=== PATIENT | female | born 1980 | race Caucasian/White ===

== ENCOUNTER 2019-12-12 14:36 | Outpatient (REF) | payer OTHER, SELFPAY | END 2019-12-12 14:37 | disposition home or self-care (01) | LOC: HO.LAB 14:36 | PROVIDERS: PCP Internal Medicine; Visit Provider Internal Medicine | DX: Z20.828 Contact with and (suspected) exposure to other viral communicable diseases (principal) | CPT/HCPCS: 87635 ==

== ENCOUNTER 2020-01-21 16:44 | Outpatient (REF) | payer OTHER, SELFPAY ==
[2020-01-21 17:43] LABS: COVID-19 Test Negative (Negative); IDNOW Serial# 55D5AD1C
== END 2020-01-21 16:45 | disposition home or self-care (01) ==
LOC: HO.LAB 16:44
PROVIDERS: Visit Provider Internal Medicine
DX: Z20.828 Contact with and (suspected) exposure to other viral communicable diseases (principal)
CPT/HCPCS: 87635; C9803

== ENCOUNTER 2020-02-21 19:43 | Emergency (ER) | payer OTHER, SELFPAY ==
[2020-02-21 20:08] VITALS: PULSE 81; RESP 15; TEMP 35.9; O2SAT 100; BMI 34.9
--- NOTE | 2020-02-21 20:48 | CT_ITS ---
EXAMINATION: CT HEAD WITHOUT CONTRAST CLINICAL INFORMATION: Headache, left-sided numbness COMPARISON: None TECHNIQUE: Contiguous axial imaging was performed from the skull base to vertex without intravenous administration of contrast. This CT examination was performed using dose optimization techniques as appropriate, variously including the following: *Automated exposure control *Adjustment of mA and/or kV according to patient size (this includes techniques or standardized protocols for targeted exams where dose is matched to indication/reason for exam; i.e. extremities or head) *Use of iterative reconstruction technique DLP: 642 mGy-cm FINDINGS: There is no evidence of acute intracranial hemorrhage or territorial infarction. No abnormal mass effect or midline shift is seen. Andrews to white matter differentiation is well preserved. No extra-axial fluid collections are identified. The ventricles are normal in size. There is no abnormal attenuation within the brain parenchyma. The osseous structures and soft tissues are normal. The mastoid air cells and visualized portions of the paranasal sinuses are well aerated. CT/CT head/brain wo con IMPRESSION: No acute intracranial process seen.
--- NOTE | 2020-02-21 20:49 | XR_ITS ---
EXAMINATION: XR CHEST CLINICAL INFORMATION: Chest pain. COMPARISON: None TECHNIQUE: Frontal view of the chest was obtained. FINDINGS: No significant abnormality is noted involving the heart, lungs, mediastinum, bony thorax or soft tissues. XR/XR chest 1V IMPRESSION: Unremarkable chest examination.
--- NOTE | 2020-02-21 20:49 | ECG_ITS ---
Test Reason : FLU LIKE SYMPTOMS Blood Pressure : / mmHG Vent. Rate : 079 BPM Atrial Rate : 079 BPM P-R Int : 142 ms QRS Dur : 082 ms QT Int : 368 ms P-R-T Axes : 007 056 035 degrees QTc Int : 421 ms Normal sinus rhythm Normal ECG When compared with ECG of 03-APR-2019 07:42, No significant change was found Referred By: Bhumika Magallanes Electronically Signed By:Ronni Glover
--- NOTE | 2020-02-21 20:55 | ED.HA ---
HPI - Headache General Chief Complaint: Headache Stated Complaint: Migraine Time Seen by Provider: 02/21/20 20:36 Source: patient Mode of arrival: ambulatory Limitations: no limitations History of Present Illness MD elicited complaint: headache and other (HTN, body aches, chest pain, L sided facial parasthesias) Pertinent past history: hypertension (gestational HTN) Onset (ago): day(s) (3) Onset description: gradually Location: diffuse Severity: similar to previous episodes Quality & Timing: throbbing Exacerbating factors: none Relieving factors: nothing Context: occurred at rest Associated symptoms: nausea, numbness, chest pain and cough Treatments prior to arrival: ibuprofen Related Data Previous Rx's Medication Instructions Recorded amlodipine 5 mg PO DAILY #30 tab 02/21/20 Allergies Allergy/AdvReac Type Severity Reaction Status Date / Time celecoxib [From Celebrex] Allergy Intermediate ITCHING Verified 02/21/20 20:17 Effexor Allergy Unknown itch, Verified 02/21/20 20:17 itching metronidazole Allergy Unknown rash Verified 02/21/20 20:17 sertraline [Zoloft] Allergy Unknown itching Verified 02/21/20 20:17 Sulfa (Sulfonamide Allergy Unknown unknown, Verified 02/21/20 20:17 Antibiotics) yeast infection sulfamethoxazole Allergy Unknown ITCHING Verified 02/21/20 20:17 [From BACTRIM] trimethoprim [From BACTRIM] Allergy Unknown ITCHING Verified 02/21/20 20:17 morphine Allergy Hives Verified 02/21/20 21:22 alprazolam [From XANAX] AdvReac Mild CONFUSION Verified 02/21/20 20:17 From EFFEXOR Allergy Intermediate SHORTNESS Uncoded 02/21/20 20:17 OF BREATH From Zoloft Allergy Intermediate SHORTNESS Uncoded 02/21/20 20:17 OF BREATH Review of Systems Review of Systems: Constitutional : No Fever, pos Chills, pos Fatigue ENT/Mouth : No sore throat, No Rhinorrhea Eyes: No Eye Pain, No Swelling, No Redness Cardiovascular : No Chest Pain, No SOB, No Dyspnea on Exertion Respiratory : No Cough, No Sputum Gastrointestinal : pos Nausea, No Vomiting, No Diarrhea, No abdominal Pain Genitourinary : No Dysuria, No Urinary Frequency, No Hematuria, Musculoskeletal : pos joint pain, pos Myalgias, No Joint Swelling Skin : No Skin Lesions, No rash Neuro : No Weakness, pos Numbness, No Dizziness, positive Headache Psych : No Anxiety/Panic, No Depression Heme/Lymph: No Bruising, No Bleeding,No Lymphadenopathy Endocrine : No Polyuria, No Polydipsia All other systems reviewed and are negative [facility] Past Medical History Attestation statement: The following information was validated with the patient. Medical History Gestational HTN Social History Social History (Updated 02/21/20 @ 20:57 by Bhumika Magallanes DO) Smoking Status: Never smoker Use of substances other than those prescribed or required for medical reasons: No Advance Directives: No Advance Directives Information Provided: No Physical Exam Vital Signs: Vital Signs: Last Vital Signs Temp 97 F 02/21/20 21:32 Pulse 78 02/21/20 21:32 Resp 16 02/21/20 21:32 BP 142/68 H 02/21/20 21:32 Pulse Ox 99 02/21/20 21:32 Body Mass Index 34.9 Appearance: Alert. Oriented X3. No acute distress. Eyes: Pupils equal, round and reactive to light. ENT: Pharynx normal. bilateral maxillary sinus ttp Neck: Normal inspection. Neck supple. CVS: Normal heart rate and rhythm. Pulses normal. Respiratory: No respiratory distress. Breath sounds normal. Abdomen: Soft and non-tender. Skin: Skin warm and dry. Normal skin color. Normal skin turgor. Extremities: No lower extremity edema. No calf ttp Neuro: Oriented X 3. No motor deficit. No sensory deficit. steady gait, CN intact Course Course Course Narrative: BP 140s still but feels much better, negative CT scan, symptoms gone neuro intact, COVID negative, EKG and trop negative with CP > 6 hours at this time will start on low dose norvasc MDM - Headache MDM Narrative Medical decision making narrative: 39 yo female with hx of gestational HTN notes for 2 years she has had HTN but PCP mary lnot start medications, she notes 3 days of body aches, headaches, high blood pressure on machine at home, CP as well, exposure to COVID at work, c/o parasthesias to me L face x 3 days she is neuro intact at this time will obtain labs, EKG, troponin, CT head for parasthesias, COVID swab, possible start of BP medications Lab Data Result diagrams: 12/17/20 21:06 02/21/20 21:36 Labs: Lab Results 02/21/20 02/21/20 02/21/20 Range/Units 20:56 20:56 21:06 WBC 12.3 H (4.8-10.8) X10*3/uL RBC 4.82 (4.20-5.50) X10*6/uL Hgb 14.9 (12.0-16.0) g/dl Hct 45.1 (37-47) % MCV 93.6 (80-98) fL MCH 30.9 (27.0-33.0) pg MCHC 33.0 (31.0-35.0) g/dl RDW 11.9 (11.0-16.0) % Plt Count 358 (160-400) X10*3/uL MPV 10.6 (9.4-12.3) fL Immature Gran % (Auto) 0.3 (0.0-0.4) % Neut % (Auto) 60.1 (45-73) % Lymph % (Auto) 29.5 (20-40) % [place] % (Auto) 8.0 (2-11) % Eos % (Auto) 1.5 (0-4) % Baso % (Auto) 0.6 (0-2) % Lymph # (Auto) 3.6 (1.2-4.9) X10*3/uL [place] # (Auto) 1.0 (0.1-1.2) X10*3/uL Eos # (Auto) 0.2 (0.0-0.4) X10*3/uL Baso # (Auto) 0.1 (0.0-0.2) X10*3/uL Abs Immat Gran (auto) 0.04 H (0.00-0.03) X10*3/uL Absolute Neuts (auto) 7.4 (2.0-8.3) X10*3/uL Absolute Nucleated RBC 0.000 (0.0-0.012) X10*3/uL Nucleated RBC % (auto) 0.0 (0.0-0.2) /100WBC PT (10.8-13.0) SEC INR (0.9-1.1) APTT (24.1-38.0) SEC Sodium Potassium Chloride Carbon Dioxide Anion Gap BUN Creatinine Estim Creat Clear Calc Estimated GFR Random Glucose Calcium Magnesium Total Bilirubin Direct Bilirubin AST ALT Alkaline Phosphatase Troponin I High Sens (<3.5-17.0) ng/L Total Protein Albumin Lipase Urine Color YELLOW Urine Appearance CLEAR Urine pH 6.0 (5.0-8.0) Ur Specific [place] 1.025 (1.005-1.025) Urine Protein NEG (NEG-TRACE) MG/DL Urine Glucose (UA) NEG (NEG) MG/DL Urine Ketones NEG (NEG) MG/DL Urine Blood 2+ H (NEG) Urine Nitrite NEG (NEG) Ur Leukocyte Esterase NEG (NEG) Urine RBC 1-4 (0) /HPF Urine WBC 0-2 (0-4) /HPF Ur Squamous Epith Cells TRACE /LPF Urine Bacteria TRACE /LPF Urine Test NEGATIVE (NEGATIVE) Coronavirus (PCR) NEGATIVE (Negative) Influenza Type A (PCR) NEGATIVE (Negative) Influenza Type B (PCR) NEGATIVE (Negative) RSV RNA Qual (PCR) NEGATIVE (Negative) 02/21/20 02/21/20 02/21/20 Range/Units 21:06 21:06 21:06 WBC (4.8-10.8) X10*3/uL RBC (4.20-5.50) X10*6/uL Hgb (12.0-16.0) g/dl Hct (37-47) % MCV (80-98) fL MCH (27.0-33.0) pg MCHC (31.0-35.0) g/dl RDW (11.0-16.0) % Plt Count (160-400) X10*3/uL MPV (9.4-12.3) fL Immature Gran % (Auto) (0.0-0.4) % Neut % (Auto) (45-73) % Lymph % (Auto) (20-40) % [place] % (Auto) (2-11) % Eos % (Auto) (0-4) % Baso % (Auto) (0-2) % Lymph # (Auto) (1.2-4.9) X10*3/uL [place] # (Auto) (0.1-1.2) X10*3/uL Eos # (Auto) (0.0-0.4) X10*3/uL Baso # (Auto) (0.0-0.2) X10*3/uL Abs Immat Gran (auto) (0.00-0.03) X10*3/uL Absolute Neuts (auto) (2.0-8.3) X10*3/uL Absolute Nucleated RBC (0.0-0.012) X10*3/uL Nucleated RBC % (auto) (0.0-0.2) /100WBC PT 11.6 (10.8-13.0) SEC INR 1.0 (0.9-1.1) APTT 32.7 (24.1-38.0) SEC Sodium Cancelled Potassium Cancelled Chloride Cancelled Carbon Dioxide Cancelled Anion Gap Cancelled BUN Cancelled Creatinine Cancelled Estim Creat Clear Calc Cancelled Estimated GFR Cancelled Random Glucose Cancelled Calcium Cancelled Magnesium Cancelled Total Bilirubin Cancelled Direct Bilirubin Cancelled AST Cancelled ALT Cancelled Alkaline Phosphatase Cancelled Troponin I High Sens < 3.5 (<3.5-17.0) ng/L Total Protein Cancelled Albumin Cancelled Lipase Cancelled Urine Color Urine Appearance Urine pH (5.0-8.0) Ur Specific [place] (1.005-1.025) Urine Protein (NEG-TRACE) MG/DL Urine Glucose (UA) (NEG) MG/DL Urine Ketones (NEG) MG/DL Urine Blood (NEG) Urine Nitrite (NEG) Ur Leukocyte Esterase (NEG) Urine RBC (0) /HPF Urine WBC (0-4) /HPF Ur Squamous Epith Cells /LPF Urine Bacteria /LPF Urine Test (NEGATIVE) Coronavirus (PCR) (Negative) Influenza Type A (PCR) (Negative) Influenza Type B (PCR) (Negative) RSV RNA Qual (PCR) (Negative) 02/21/20 02/21/20 Range/Units 21:07 21:36 WBC (4.8-10.8) X10*3/uL RBC (4.20-5.50) X10*6/uL Hgb (12.0-16.0) g/dl Hct (37-47) % MCV (80-98) fL MCH (27.0-33.0) pg MCHC (31.0-35.0) g/dl RDW (11.0-16.0) % Plt Count (160-400) X10*3/uL MPV (9.4-12.3) fL Immature Gran % (Auto) (0.0-0.4) % Neut % (Auto) (45-73) % Lymph % (Auto) (20-40) % [place] % (Auto) (2-11) % Eos % (Auto) (0-4) % Baso % (Auto) (0-2) % Lymph # (Auto) (1.2-4.9) X10*3/uL [place] # (Auto) (0.1-1.2) X10*3/uL Eos # (Auto) (0.0-0.4) X10*3/uL Baso # (Auto) (0.0-0.2) X10*3/uL Abs Immat Gran (auto) (0.00-0.03) X10*3/uL Absolute Neuts (auto) (2.0-8.3) X10*3/uL Absolute Nucleated RBC (0.0-0.012) X10*3/uL Nucleated RBC % (auto) (0.0-0.2) /100WBC PT (10.8-13.0) SEC INR (0.9-1.1) APTT (24.1-38.0) SEC Sodium Cancelled 140 Potassium Cancelled 3.6 Chloride Cancelled 105 Carbon Dioxide Cancelled 30 H Anion Gap Cancelled 9 L BUN Cancelled 10 Creatinine Cancelled 0.81 Estim Creat Clear Calc Cancelled 100.6 Estimated GFR Cancelled > 60 Random Glucose Cancelled 105 Calcium Cancelled 8.5 Magnesium 2.2 Total Bilirubin 0.3 Direct Bilirubin 0.2 AST 15 ALT 9 Alkaline Phosphatase 62 Troponin I High Sens (<3.5-17.0) ng/L Total Protein 6.9 Albumin 4.0 Lipase 59 Urine Color Urine Appearance Urine pH (5.0-8.0) Ur Specific [place] (1.005-1.025) Urine Protein (NEG-TRACE) MG/DL Urine Glucose (UA) (NEG) MG/DL Urine Ketones (NEG) MG/DL Urine Blood (NEG) Urine Nitrite (NEG) Ur Leukocyte Esterase (NEG) Urine RBC (0) /HPF Urine WBC (0-4) /HPF Ur Squamous Epith Cells /LPF Urine Bacteria /LPF Urine Test (NEGATIVE) Coronavirus (PCR) (Negative) Influenza Type A (PCR) (Negative) Influenza Type B (PCR) (Negative) RSV RNA Qual (PCR) (Negative) ECG Data Attestation: I personally reviewed and interpreted this ECG as follows: ECG interpretation date: 02/21/20 ECG interpretation time: 21:13 Interpretation: Rate: 79 Rhythm: NSR [place]: normal Normal P waves. Normal PATR[place]. Normal QRS complex. ST T wave : normal , no VIKAS qTC: normal prior studies: no acute ischemia The study has been interpreted contemporaneously by me. . Discharge Plan Discharge Clinical Impression: Headache Qualifiers: Headache type: tension-type Headache chronicity pattern: acute headache Intractability: not intractable Qualified Code(s): G44.209 - Tension-type headache, unspecified, not intractable HTN (hypertension) Qualifiers: Hypertension type: essential hypertension Qualified Code(s): I10 - Essential (primary) hypertension Patient Disposition: Home, Self-Care Instructions: Acute Headache (ED), Chronic Hypertension (ED) Additional Instructions: return to ED for any worsening symptoms or concerns YOUR COVID FLU AND RSV TEST WERE NEGATIVE if you feel dizzy or lightheaded stop taking the BP medications, check your blood pressure and sit down. Prescriptions: New amlodipine 5 mg tablet 5 mg PO DAILY Qty: 30 RF: 0 Referrals: Elier Olmstead MD [Primary Care Provider] - 2 days (tuesday if not better) Stand Alone Forms: Work/School Release
[2020-02-21 21:09] LABS: Glucose Urine UA NEG (NEG); Leukocyte Esterase Urine NEG (NEG); Nitrite Urine NEG (NEG); Specific Gravity - Urine 1.025 (1.005-1.025); Urine Blood 2+ (NEG); Urine Ketones NEG (NEG); Urine Protein NEG (NEG-TRACE)
--- NOTE | 2020-02-21 21:09 | PC.NURSE ---
20g right ac no complications
[2020-02-21 21:11] LABS: MANUAL DIFF FLAG NO
[2020-02-21 21:12] VITALS: RESP 18
[2020-02-21] MEDS: ondansetron HCL 4 MG/2 ML VIAL IVPUSH (21:12)
[2020-02-21] MEDS: Morphine Sulfate 4 MG/ML CARTRIDGE IVPUSH (21:12)
[2020-02-21 21:13] LABS: Basophils Absolute Auto 0.1 X10*3/uL (0.0-0.2); Basophils Percent Auto 0.6 % (0-2); Eosinophils Absolute Auto 0.2 X10*3/uL (0.0-0.4); Eosinophils Percent Auto 1.5 % (0-4); Hematocrit 45.1 % (37-47); Hemoglobin 14.9 g/dl (12.0-16.0); Imm Gran Abs Auto 0.04 X10*3/uL (0.00-0.03); Imm Gran Pct Auto 0.3 % (0.0-0.4); Lymphocytes Absolute Auto 3.6 X10*3/uL (1.2-4.9); Lymphocytes Percent Auto 29.5 % (20-40); Mean Corpuscular Hemoglobin 30.9 pg (27.0-33.0); Mean Corpuscular Volume 93.6 fL (80-98); Mean Platelet Volume 10.6 fL (9.4-12.3); Neutrophils Absolute Auto 7.4 X10*3/uL (2.0-8.3); Neutrophils Percent Auto 60.1 % (45-73); Platelet Count 358 X10*3/uL (160-400); Red Blood Count 4.82 X10*6/uL (4.20-5.50); Red Cell Distribution Width 11.9 % (11.0-16.0); White Blood Count 12.3 X10*3/uL (4.8-10.8)
[2020-02-21 21:15] LABS: Appearance Urine CLEAR; Color Urine YELLOW
--- NOTE | 2020-02-21 21:19 | PC.NURSE ---
pt upon receiveing morphine stated she had chest discomfort and feeling hot. pt developed a upper body hives and pt states this has happened to her before and resolves on its own. pt on the monitor nsr hr 74. rr even and reg. and resolving on its own. hives resolving as well.
[2020-02-21 21:21] VITALS: BP 149/77; PULSE 78; RESP 8; O2SAT 99
[2020-02-21 21:23] LABS: WBC Urine 0-2 /HPF (0-4)
[2020-02-21 21:24] VITALS: BP 144/77; PULSE 73; RESP 18; O2SAT 97
[2020-02-21 21:24] LABS: Bacteria Urine TRACE /LPF; Squamous Epithelial Cell Urine TRACE /LPF; UPreg QC Valid YES; Urine Pregnancy NEGATIVE (NEGATIVE)
[2020-02-21 21:26] LABS: Prothrombin Time 11.6 SEC (10.8-13.0)
[2020-02-21 21:29] LABS: Partial Thromboplastin Time 32.7 SEC (24.1-38.0)
[2020-02-21 21:32] VITALS: BP 142/68; PULSE 78; RESP 16; TEMP 36.1; O2SAT 99
[2020-02-21 21:42] LABS: Troponin-I High Sensitivity < 3.5 ng/L (<3.5-17.0)
[2020-02-21 22:11] LABS: Alanine Aminotransferase 9 U/L (0-31); Alkaline Phosphatase 62 U/L (39-117); Anion Gap 9 (12-20); Aspartate Amino Transferase 15 U/L (5-31); Bilirubin Direct 0.2 mg/dL (0.0-0.5); Bilirubin Total 0.3 mg/dL (0.0-1.0); Blood Urea Nitrogen 10 mg/dL (9-16); Calcium 8.5 mg/dL (8.4-10.2); Carbon Dioxide 30 mmol/L (22-29); Chloride 105 mmol/L (96-108); Creatinine Clr Calc Pharmacy 100.6; Estimated Glomerular Filt Rate > 60; Glucose Random 105 mg/dL (60-115); Lipase 59 U/L (8-78); Magnesium 2.2 mg/dL (1.6-2.6); Potassium 3.6 mmol/l (3.3-5.1); Sodium 140 mmol/L (135-145); Total Protein 6.9 g/dL (6.5-8.0)
[2020-02-21 22:28] LABS: Influenza A PCR NEGATIVE (Negative); Influenza B PCR NEGATIVE (Negative); Resp Syncy Virus RNA Qual PCR NEGATIVE (Negative); SARS COV2 PCR INHOUSE NEGATIVE (Negative)
== END 2020-02-21 23:02 | disposition home or self-care (01) ==
PROVIDERS: Emergency Provider Emergency Medicine; PCP Internal Medicine
DX: G44.209 Tension-type headache, unspecified, not intractable (principal); I10 Essential (primary) hypertension; Z79.899 Other long term (current) drug therapy; Z20.828 Contact with and (suspected) exposure to other viral communicable diseases
CPT/HCPCS: 0241U; 36415; 70450; 71045; 80048; 80076; 81001; 81025; 83690; 83735; 84484; 85025; 85610; 85730; 93005; 96374; 96375; 99284; J2270; J2405

== ENCOUNTER 2020-05-16 13:38 | Outpatient (REF) | payer OTHER, SELFPAY ==
[2020-05-16 13:56] LABS: COVID-19 Test Negative (Negative); IDNOW Serial# 55D5AD1C
== END 2020-05-16 13:39 | disposition home or self-care (01) ==
LOC: HO.LAB 13:38
PROVIDERS: Visit Provider Internal Medicine
DX: Z20.822 Contact with and (suspected) exposure to COVID-19 (principal)
CPT/HCPCS: 36415; 87635; C9803

== ENCOUNTER 2020-05-23 14:26 | Outpatient (REF) | payer OTHER, SELFPAY ==
[2020-05-23 14:44] LABS: COVID-19 Test Negative (Negative); IDNOW Serial# 55D5AD1C
== END 2020-05-23 14:27 | disposition home or self-care (01) ==
LOC: HO.EMPCOV 14:26
PROVIDERS: Visit Provider Internal Medicine
DX: Z20.822 Contact with and (suspected) exposure to COVID-19 (principal)
CPT/HCPCS: 36415; 87635; C9803

== ENCOUNTER 2020-06-09 15:56 | Emergency (ER) | payer OTHER, SELFPAY ==
--- NOTE | ~2020-06-09 | US_ITS ---
EXAMINATION: US RETROPERITONEAL LIMITED (RENAL ONLY) CLINICAL INFORMATION: Pain. History of renal calculi.. COMPARISON: None TECHNIQUE: Grayscale and color Doppler imaging was obtained of the bilateral kidneys. FINDINGS: Horseshoe style kidneys RIGHT KIDNEY: 9.9 x 4.2 x 5.1 cm (SAG x AP x TRV). The kidney is normal in size, contour, and echogenicity. Renal cortical thickness is normal. 5 mm nonobstructing mid pole calculus. No hydronephrosis. LEFT KIDNEY: 9.8 x 5.6 x 4.5 cm (SAG x AP x TRV). The kidney is normal in size, contour, and echogenicity. Renal cortical thickness is normal. No calculi or focal parenchymal lesions. No hydronephrosis. US/US renal BI IMPRESSION: 5 mm nonobstructing right renal calculus. No hydronephrosis.
[2020-06-09 16:10] VITALS: BP 147/90; PULSE 83; RESP 16; TEMP 36.6; O2SAT 96; BMI 41.2
[2020-06-09] MEDS: ondansetron HCL 4 MG/2 ML VIAL IVPUSH (16:50)
[2020-06-09] MEDS: Ketorolac Tromethamine 30 MG/ML VIAL IVPUSH (16:50)
[2020-06-09 16:51] VITALS: RESP 16
[2020-06-09] MEDS: 0.9 % Sodium Chloride 1,000 ML 999 ML IV (16:51)
[2020-06-09] MEDS: HYDROmorphone HCl 0.5 MG/0.5 ML SYRINGE IM (16:51)
[2020-06-09 16:56] LABS: MANUAL DIFF FLAG NO
--- NOTE | 2020-06-09 16:57 | PC.NURSE ---
20 ga in est l ac pt restless and in obvious discomfort. abd soft and tender with no discoloration or distention. medicated as ordered.
[2020-06-09 17:04] LABS: Basophils Absolute Auto 0.1 X10*3/uL (0.0-0.2); Basophils Percent Auto 0.6 % (0-2); Eosinophils Absolute Auto 0.1 X10*3/uL (0.0-0.4); Eosinophils Percent Auto 0.8 % (0-4); Hematocrit 43.2 % (37-47); Imm Gran Abs Auto 0.03 X10*3/uL (0.00-0.03); Imm Gran Pct Auto 0.4 % (0.0-0.4); Lymphocytes Absolute Auto 1.4 X10*3/uL (1.2-4.9); Lymphocytes Percent Auto 17.2 % (20-40); Mean Corpuscular HGB Conc 32.4 g/dl (31.0-35.0); Mean Corpuscular Hemoglobin 30.3 pg (27.0-33.0); Mean Corpuscular Volume 93.5 fL (80-98); Mean Platelet Volume 11.3 fL (9.4-12.3); Monocytes Absolute Auto 0.6 X10*3/uL (0.1-1.2); Monocytes Percent Auto 7.3 % (2-11); Neutrophils Absolute Auto 6.1 X10*3/uL (2.0-8.3); Neutrophils Percent Auto 73.7 % (45-73); Platelet Count 320 X10*3/uL (160-400); Red Blood Count 4.62 X10*6/uL (4.20-5.50); Red Cell Distribution Width 12.2 % (11.0-16.0); White Blood Count 8.3 X10*3/uL (4.8-10.8)
[2020-06-09 17:16] LABS: INTERNATIONAL NORM RATIO 1.1 (0.9-1.1); Prothrombin Time 12.9 SEC (10.8-13.0)
[2020-06-09 17:19] LABS: Partial Thromboplastin Time 32.5 SEC (24.1-38.0)
[2020-06-09 17:28] LABS: Alanine Aminotransferase 12 U/L (0-31); Albumin Level 4.1 g/dL (3.5-5.0); Alkaline Phosphatase 62 U/L (39-117); Anion Gap 13 (12-20); Aspartate Amino Transferase 19 U/L (5-31); Bilirubin Total 0.8 mg/dL (0.0-1.0); Blood Urea Nitrogen 12 mg/dL (9-16); Calcium 8.4 mg/dL (8.4-10.2); Carbon Dioxide 27 mmol/L (22-29); Chloride 104 mmol/L (96-108); Estimated Glomerular Filt Rate > 60; Glucose Random 140 mg/dL (60-115); Potassium 3.7 mmol/L (3.3-5.1); Sodium 140 mmol/L (135-145); Total Protein 7.1 g/dL (6.5-8.0)
[2020-06-09 17:59] LABS: Glucose Urine UA NEG (NEG); Leukocyte Esterase Urine TRACE (NEG); Nitrite Urine NEG (NEG); UACC Culture Trigger YES; Urine Blood 2+ (NEG); Urine Ketones NEG (NEG); Urine Protein NEG (NEG-TRACE)
[2020-06-09 18:08] VITALS: BP 134/75; PULSE 97; RESP 16; O2SAT 100
[2020-06-09 18:08] LABS: Appearance Urine CLEAR; Color Urine YELLOW
[2020-06-09] MEDS: HYDROmorphone HCl 0.5 MG/0.5 ML SYRINGE IVPUSH (18:14)
[2020-06-09 18:20] LABS: Amorphous Sediment Urine 2+ /LPF; Squamous Epithelial Cell Urine 2+ /LPF; UACC CULT YES
--- NOTE | 2020-06-09 19:26 | ED_ITS ---
HPI - Abdominal Pain General Chief Complaint: Abdominal Pain Stated Complaint: LOW RT QUAD PAIN Time Seen by Provider: 06/09/20 16:22 Source: patient Mode of arrival: ambulatory Limitations: no limitations History of Present Illness HPI narrative: 2 hours of right flank pain history of kidney stones similar to previous episodes. MD elicited complaint: flank pain Pertinent past history: none Onset (ago): hour(s) Pain Consistency: intermittent (Sharp stabbing in the right flank) Severity: severe Pain scale (0-10): 10 Radiation: none Migration to: no migration Exacerbating factors: nothing Associated symptoms: denies other symptoms Related Data Home Medications Medication Instructions Recorded Confirmed ibuprofen 800 mg tablet 800 mg PO TID PRN 04/01/20 05/19/20 acetaminophen 325 mg tablet 650 mg PO QID PRN tab 05/19/20 05/19/20 Previous Rx's Medication Instructions Recorded amlodipine 5 mg tablet 5 mg PO DAILY 90 Days #90 tab 03/19/20 lorazepam 0.5 mg tablet 0.5 mg PO TID PRN 30 Days #90 tab 03/19/20 amoxicillin 875 mg-potassium 1 tab PO BID #20 tab 05/19/20 clavulanate 125 mg tablet prednisone 20 mg tablet 20 mg PO .COMPLEX #18 tab 05/19/20 ibuprofen 800 mg PO Q8H PRN #30 tab 06/09/20 oxycodone 5 mg PO Q8H PRN 3 Days #10 tab 06/09/20 tamsulosin [Flomax] 0.4 mg PO DAILY #14 cap 06/09/20 Allergies Allergy/AdvReac Type Severity Reaction Status Date / Time celecoxib [From Celebrex] Allergy Intermediate ITCHING Verified 05/19/20 12:46 Effexor Allergy Unknown itching Verified 05/19/20 12:46 metronidazole Allergy Unknown rash Verified 05/19/20 12:46 morphine Allergy Unknown Hives Verified 05/19/20 12:46 sertraline [Zoloft] Allergy Unknown itching Verified 05/19/20 12:46 Sulfa (Sulfonamide Allergy Unknown unknown, Verified 05/19/20 12:46 Antibiotics) yeast infection sulfamethoxazole Allergy Unknown ITCHING Verified 05/19/20 12:46 [From BACTRIM] trimethoprim [From BACTRIM] Allergy Unknown ITCHING Verified 05/19/20 12:46 alprazolam [From XANAX] AdvReac Mild CONFUSION Verified 05/19/20 12:46 Review of Systems Review of Systems Constitutional: No Weight loss, No Fever, No Chills, No Night Sweats, No Fatigue, No Malaise ENT/Mouth: No Hearing loss, No Ear Pain, No Nasal Congestion, No Sinus Pain, No Hoarseness, No sore throat, No Rhinorrhea, No Swallowing Difficulty Eyes: No Eye Pain, No Swelling, No Redness, No Foreign Body, No Discharge, No Vision Changes Cardiovascular: No Chest Pain, No SOB, No Dyspnea on Exertion, No Orthopnea, No Edema, No Palpitations Respiratory: No Cough, No Sputum, No Wheezing, No Smoke Exposure, No Dyspnea Gastrointestinal: No Nausea, No Vomiting, No Diarrhea, No Constipation, +Flank pain, No Hematochezia, No Melena Genitourinary: no irregular bleeding, No Dysuria, No Urinary Frequency, No Hematuria, No Urinary Incontinence, No Urgency, No Urinary Flow Changes, No Hesitancy Musculoskeletal: No joint pain, No Myalgias, No Joint Swelling Skin: No Skin Lesions, No rash Neuro: No Weakness, No Numbness, No Paresthesias, No Loss of Consciousness, No Dizziness, No Headache Psych: No Social Issues Heme/Lymph: No Bruising, No Bleeding,No Lymphadenopathy Endocrine: No Polyuria, No Polydipsia, No Temperature Intolerance Yes all other systems are reviewed and are negative Physical Exam Vital Signs: Vital Signs: Last Vital Signs Temp 98 F 06/09/20 16:10 Pulse 70 06/09/20 20:00 Resp 18 06/09/20 20:00 BP 123/78 06/09/20 20:00 Pulse Ox 98 06/09/20 20:00 Body Mass Index 41.2 Reviewed Const: General: in distress (Pain) moderate and anxious; No intoxicated appearing Nutritional Appearance: average body habitus Orientation/ consciousness: patient oriented x3 HENMT: Head: Yes normal to inspection Ears: hearing grossly normal bilaterally Eyes: General: appearance normal, both eyes and all related structures Visual Riley: normal visual riley by confrontation Neck: Neck: Yes normal visual inspection, No positive Brudzinski's sign, No positive Kernig's sign and No tender Thyroid: Thyroid normal Chest: Chest palpation & inspection: normal inspection of the chest Resp: Effort & Inspection: normal respiratory effort Auscultation: clear to auscultation bilaterally Cardio: Jugular venous distension: no JVD Rhythm: regular rhythm Heart sounds: S1 normal heart sound present and S2 normal heart sound present GI: Inspection: Yes normal to inspection Palpation (GI): Soft to palpation Percussion: Yes normal to percussion Auscultation: normal bowel sounds : General: Yes CVA tenderness on the right and diffuse Back/Spine/Pelvis: Other: No rash Back: No erythema, No warmth, No sacral edema, No ecchymosis and No back tenderness Cervical Spine: No step off deformity Thoracic/Lumbar Spine: thoracic and lumbar spine normal to inspection Skin: General skin exam: no rashes or lesions noted Neuro: General: patient oriented x3 Extrem: General: Yes normal to inspection Course Course Course Narrative: While she voided felt like a pressure relief pain after receiving pain medicines and fluid. Labs overall stable, UA equivocal sent for culture no symptoms will defer treatment. Feels much better now pain is essentially resolved likely she passed a stone seen on ultrasound of 5 mm. Will refer to Urology Dr. Addison familiar with our urology services here. Feels c omfortable plan. Will nontoxic appearing. Stable for discharge. Abdomen soft, nontender, no peritonitis. No findings suggest acute abdomen. MDM - Abdominal Pain Medical Records Attestation: I reviewed the patient's medical records. Lab Data Attestation: I reviewed the patient's lab results. Result diagrams: 06/09/20 16:43 06/09/20 16:43 Labs: Lab Results 06/09/20 06/09/20 06/09/20 Range/Units 16:43 16:43 16:43 WBC 8.3 (4.8-10.8) X10*3/uL RBC 4.62 (4.20-5.50) X10*6/uL Hgb 14.0 (12.0-16.0) g/dl Hct 43.2 (37-47) % MCV 93.5 (80-98) fL MCH 30.3 (27.0-33.0) pg MCHC 32.4 (31.0-35.0) g/dl RDW 12.2 (11.0-16.0) % Plt Count 320 (160-400) X10*3/uL MPV 11.3 (9.4-12.3) fL Immature Gran % (Auto) 0.4 (0.0-0.4) % Neut % (Auto) 73.7 H (45-73) % Lymph % (Auto) 17.2 L (20-40) % [place] % (Auto) 7.3 (2-11) % Eos % (Auto) 0.8 (0-4) % Baso % (Auto) 0.6 (0-2) % Lymph # (Auto) 1.4 (1.2-4.9) X10*3/uL [place] # (Auto) 0.6 (0.1-1.2) X10*3/uL Eos # (Auto) 0.1 (0.0-0.4) X10*3/uL Baso # (Auto) 0.1 (0.0-0.2) X10*3/uL Abs Immat Gran (auto) 0.03 (0.00-0.03) X10*3/uL Absolute Neuts (auto) 6.1 (2.0-8.3) X10*3/uL Absolute Nucleated RBC 0.000 (0.0-0.012) X10*3/uL Nucleated RBC % (auto) 0.0 (0.0-0.2) /100WBC PT 12.9 (10.8-13.0) SEC INR 1.1 (0.9-1.1) APTT 32.5 (24.1-38.0) SEC Sodium 140 (135-145) mmol/L Potassium 3.7 (3.3-5.1) mmol/L Chloride 104 (96-108) mmol/L Carbon Dioxide 27 (22-29) mmol/L Anion Gap 13 (12-20) BUN 12 (9-16) mg/dL Creatinine 0.85 (0.5-1.4) mg/dL Estim Creat Clear Calc 104.0 Estimated GFR > 60 Random Glucose 140 H (60-115) mg/dL Calcium 8.4 (8.4-10.2) mg/dL Total Bilirubin 0.8 (0.0-1.0) mg/dL AST 19 (5-31) U/L ALT 12 (0-31) U/L Alkaline Phosphatase 62 (39-117) U/L Total Protein 7.1 (6.5-8.0) g/dL Albumin 4.1 (3.5-5.0) g/dL Urine Color Urine Appearance Urine pH (5.0-8.0) Ur Specific [place] (1.005-1.025) Urine Protein (NEG-TRACE) MG/DL Urine Glucose (UA) (NEG) MG/DL Urine Ketones (NEG) MG/DL Urine Blood (NEG) Urine Nitrite (NEG) Ur Leukocyte Esterase (NEG) Urine RBC (0) /HPF Urine WBC (0-4) /HPF Ur Squamous Epith Cells /LPF Amorphous Sediment /LPF Urine Bacteria /LPF 06/09/20 Range/Units 17:45 WBC (4.8-10.8) X10*3/uL RBC (4.20-5.50) X10*6/uL Hgb (12.0-16.0) g/dl Hct (37-47) % MCV (80-98) fL MCH (27.0-33.0) pg MCHC (31.0-35.0) g/dl RDW (11.0-16.0) % Plt Count (160-400) X10*3/uL MPV (9.4-12.3) fL Immature Gran % (Auto) (0.0-0.4) % Neut % (Auto) (45-73) % Lymph % (Auto) (20-40) % [place] % (Auto) (2-11) % Eos % (Auto) (0-4) % Baso % (Auto) (0-2) % Lymph # (Auto) (1.2-4.9) X10*3/uL [place] # (Auto) (0.1-1.2) X10*3/uL Eos # (Auto) (0.0-0.4) X10*3/uL Baso # (Auto) (0.0-0.2) X10*3/uL Abs Immat Gran (auto) (0.00-0.03) X10*3/uL Absolute Neuts (auto) (2.0-8.3) X10*3/uL Absolute Nucleated RBC (0.0-0.012) X10*3/uL Nucleated RBC % (auto) (0.0-0.2) /100WBC PT (10.8-13.0) SEC INR (0.9-1.1) APTT (24.1-38.0) SEC Sodium (135-145) mmol/L Potassium (3.3-5.1) mmol/L Chloride (96-108) mmol/L Carbon Dioxide (22-29) mmol/L Anion Gap (12-20) BUN (9-16) mg/dL Creatinine (0.5-1.4) mg/dL Estim Creat Clear Calc Estimated GFR Random Glucose (60-115) mg/dL Calcium (8.4-10.2) mg/dL Total Bilirubin (0.0-1.0) mg/dL AST (5-31) U/L ALT (0-31) U/L Alkaline Phosphatase (39-117) U/L Total Protein (6.5-8.0) g/dL Albumin (3.5-5.0) g/dL Urine Color YELLOW Urine Appearance CLEAR Urine pH 8.0 (5.0-8.0) Ur Specific [place] 1.020 (1.005-1.025) Urine Protein NEG (NEG-TRACE) MG/DL Urine Glucose (UA) NEG (NEG) MG/DL Urine Ketones NEG (NEG) MG/DL Urine Blood 2+ H (NEG) Urine Nitrite NEG (NEG) Ur Leukocyte Esterase TRACE H (NEG) Urine RBC 1-4 (0) /HPF Urine WBC 5-9 H (0-4) /HPF Ur Squamous Epith Cells 2+ /LPF Amorphous Sediment 2+ /LPF Urine Bacteria NONE /LPF Imaging Data Renal ultrasound: Radiologist's impression: [address] [id number] ReportSigned Patient: Shirlene McdermottMR#: [id number]: 1980Acct:[id number]/Sex: 40 / FADM Date: 06/09/20Loc: Jabari Beltran: Ordering Physician: Alberto Milan NP Date of Service: 06/09/20 Procedure(s): US renal BI Accession Number(s): [id number] cc: Alberto Milan 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 History of renal calculi.. COMPARISON: None TECHNIQUE: Grayscale and color Doppler imaging was obtained of the bilateral kidneys. FINDINGS: Horseshoe style kidneys RIGHT KIDNEY: 9.9 x 4.2 x 5.1 cm (SAG x AP x TRV). The kidney is normal in size, contour, and echogenicity. Renal cortical thickness is normal. 5 mm nonobstructing mid pole calculus. No hydronephrosis. LEFT KIDNEY: 9.8 x 5.6 x 4.5 cm (SAG x AP x TRV). The kidney is normal in size, contour, and echogenicity. Renal cortical thickness is normal. No calculi or focal parenchymal lesions. No hydronephrosis. US/US renal BI IMPRESSION: 5 mm nonobstructing right renal calculus. No hydronephrosis. Dictated By:SARAH BUSTOS MDSigned By:<Electronically signed by SARAH BUSTOS MD in OV>06/09/20 1815 DD/ 1628TD/TT: Multifocal Button Generator: PD Discharge Plan Discharge Clinical Impression: Renal calculi Patient Disposition: Home, Self-Care Instructions: Kidney Stones (ED), How to Strain Your Urine (ED) Additional Instructions: Drink plenty fluids Take medication prescribed No drinking or driving while taking oxycodone for pain Take ibuprofen for mild pain Oxycodone for more severe pain Prescriptions: New ibuprofen 800 mg tablet 800 mg PO Q8H PRN (Reason: pain) Qty: 30 RF: 0 oxycodone 5 mg tablet 5 mg PO Q8H PRN (Reason: pain) 3 Days Qty: 10 RF: 0 tamsulosin [Flomax] 0.4 mg capsule 0.4 mg PO DAILY Qty: 14 RF: 0 No Action lorazepam 0.5 mg tablet 0.5 mg PO TID PRN (Reason: anxiety) 30 Days Qty: 90 RF: 0 amlodipine 5 mg tablet 5 mg PO DAILY 90 Days Qty: 90 RF: 1 ibuprofen 800 mg tablet 800 mg PO TID PRNRF: 0 acetaminophen [Tylenol] 325 mg tablet 650 mg PO QID PRNRF: 0 prednisone 20 mg tablet 20 mg PO .COMPLEX Qty: 18 RF: 0 amoxicillin-pot clavulanate [Augmentin] 875-125 mg tablet 1 tab PO BID Qty: 20 RF: 0 Referrals: Jose Alfredo Addison MD [Physician] - 5 days Stand Alone Forms: Work/School Release Interventions: ED Discharge Assessment Last Done: 06/09/20 20:16 Discharge Date/Time: 06/09/20 20:17 [facility] Past Medical History Medical History Anxiety Benign essential hypertension Gestational HTN Obesity (BMI 30-39.9) Surgical History Back pain with history of spinal surgery H/O wrist surgery History of extraction of renal calculus Family History Family History Father HIV (human immunodeficiency virus infection) Mother CVD (cardiovascular disease) Maternal Grandmother Breast cancer Diabetes Hypertension Maternal Grandfather Prostate cancer Paternal Grandmother CVD (cardiovascular disease) Paternal Grandfather Prostate cancer Sister In good health Son In good health Social History Social History Alcohol intake: current Alcohol intake frequency: holidays/special occasions only Smoking Status: Former smoker Advance Directives: No Advance Directives Information Provided: No
[2020-06-09 20:00] VITALS: BP 123/78; PULSE 70; RESP 18; O2SAT 98
== END 2020-06-09 20:17 | disposition home or self-care (01) ==
PROVIDERS: Nurse Practitioner Primary Care; Emergency Provider Internal Medicine
DX: N20.0 Calculus of kidney (principal); R10.31 Right lower quadrant pain; Z79.899 Other long term (current) drug therapy; Z87.891 Personal history of nicotine dependence
CPT/HCPCS: 36415; 76775; 80053; 81001; 85025; 85610; 85730; 87086; 96365; 96372; 96375; 99284; J1170; J1885; J2405

== ENCOUNTER → 2020-06-20 15:40 | Outpatient (BNVA) | payer OTHER, SELFPAY | PROVIDERS: Visit Provider Urology ==

== ENCOUNTER 2020-06-25 07:33 | Day surgery (SDC) | payer OTHER, SELFPAY ==
--- NOTE | ~2020-06-25 | XR_ITS ---
EXAMINATION: XR ABDOMEN KUB CLINICAL INDICATION: Nephrolithiasis. COMPARISON: Renal ultrasound dated 06/09/2020. Examination demonstrated nonobstructive 5 mm right renal calculus. TECHNIQUE: AP view of the abdomen. FINDINGS: The bowel gas pattern is normal with no evidence of ileus or obstruction. No unusual soft tissue calcifications are appreciated over the renal shadows or along the courses of the bilateral ureters. Calcifications in the pelvis are noted with the appearance of phleboliths. The bones are unremarkable. XR/XR KUB IMPRESSION: No clearly identified calcifications over the renal shadows or courses of the ureters bilaterally. Calcifications overlying the pelvis likely phleboliths as opposed to bladder calculi.
[2020-06-25 08:47] VITALS: BP 123/77; PULSE 86; RESP 18; TEMP 36.6; O2SAT 99; BMI 31.6
[2020-06-25 08:52] LABS: UPreg QC Valid YES; Urine Pregnancy NEGATIVE (NEGATIVE)
[2020-06-25] MEDS: Lactated Ringers 1,000 ML 50 ML IV (09:00)
--- NOTE | 2020-06-25 10:05 | HO.ANESPROP2 ---
[facility] Active Problems Active Problems: All Active Problems (Updated 06/20/20 @ 16:03 by Jose Alfredo Addison MD) Nephrolithiasis (Acute) Acute sinusitis (Acute) Anxiety (Acute) Obesity (BMI 30-39.9) (Acute) Benign essential hypertension (Acute) Past Medical History Medical History Anxiety Benign essential hypertension Gestational HTN Obesity (BMI 30-39.9) Family History Family History Father HIV (human immunodeficiency virus infection) Mother CVD (cardiovascular disease) Maternal Grandmother Breast cancer Diabetes Hypertension Maternal Grandfather Prostate cancer Paternal Grandmother CVD (cardiovascular disease) Paternal Grandfather Prostate cancer Sister In good health Son In good health Surgical History Surgical History Back pain with history of spinal surgery H/O wrist surgery History of extraction of renal calculus Social History Social History Alcohol intake: current Alcohol intake frequency: holidays/special occasions only Smoking Status: Former smoker Use of substances other than those prescribed or required for medical reasons: No Have you been hit, kicked, punched, or otherwise hurt by someone within the past year? If so, by whom?: No Advance Directives: No Advance Directives Information Provided: No Recently lost weight without trying: No Meds Allergies Allergy/AdvReac Type Severity Reaction Status Date / Time celecoxib [From Celebrex] Allergy Intermediate ITCHING Verified 05/19/20 12:46 Effexor Allergy Unknown itching Verified 05/19/20 12:46 metronidazole Allergy Unknown rash Verified 05/19/20 12:46 morphine Allergy Unknown Hives Verified 05/19/20 12:46 sertraline [Zoloft] Allergy Unknown itching Verified 05/19/20 12:46 Sulfa (Sulfonamide Allergy Unknown unknown, Verified 05/19/20 12:46 Antibiotics) yeast infection sulfamethoxazole Allergy Unknown ITCHING Verified 05/19/20 12:46 [From BACTRIM] trimethoprim [From BACTRIM] Allergy Unknown ITCHING Verified 05/19/20 12:46 alprazolam [From XANAX] AdvReac Mild CONFUSION Verified 05/19/20 12:46 Active Medications: Current Medications Generic Name Dose Route Start Last Admin Trade Name Lauri PRN Reason Stop Dose Admin Lactated Ringer's 1,000 mls @ 50 mls/hr 06/25/20 07:15 06/25/20 09:00 Lr IV 50 mls/hr .Q20H TONA Administration Home Medications Medication Instructions Recorded Confirmed Last Taken Type ibuprofen 800 mg tablet 800 mg PO TID PRN 04/01/20 05/19/20 Unknown History acetaminophen 325 mg tablet 650 mg PO QID PRN tab 05/19/20 05/19/20 Unknown History Exam Exam Date and Time: June 25, 2020 1005 Height,Weight and Vital Signs: Height 5 ft 5 in Weight 86.183 kg Last Vital Signs Temp 98 F 06/25/20 08:47 Pulse 86 06/25/20 08:47 Resp 18 06/25/20 08:47 BP 123/77 06/25/20 08:47 Pulse Ox 99 06/25/20 08:47 Pertinent Lab Results Pertinent Lab Results: Laboratory Tests 06/25/20 08:35 Urine Test NEGATIVE Airway Mallampati Class: II TM Dist: >3cm Neck ROM: Full Assessment and Plan Assessment Anesthesia Assessment: Anesthesia Plan Discussed and Chart Reviewed Final Anesthetic Review NPO: Yes ASA Class: II Final Preanesthetic Review: No Changes in Pt Med Stat, Meds/Allgs Chart Reviewed, Consent Obtained/Reviewed and Anes Risks/Benef Reviewed Patient Risk: Low Procedure Risk: Low Assessment/Block/Sedation in SS: Assess/Block/Sedation-SS Anesthetic Plan Anesthetic Plan: MAC: Disposition: Standard PACU
--- NOTE | 2020-06-25 11:09 | MHC.SHP ---
Pre-Procedural Eval Section A The patient is an INPATIENT: No Changes since office visit: No Cold of Flu in the past 2 weeks, No New Medical Problems, No Changes in Medication and No Patient answered all questions The History & Physical has been completed within 30 days and I have reviewed it.: Yes Section B Chief Complaint: calculus of kidney Allergies: Allergies Allergy/AdvReac Type Severity Reaction Status Date / Time celecoxib [From Celebrex] Allergy Intermediate ITCHING Verified 05/19/20 12:46 Effexor Allergy Unknown itching Verified 05/19/20 12:46 metronidazole Allergy Unknown rash Verified 05/19/20 12:46 morphine Allergy Unknown Hives Verified 05/19/20 12:46 sertraline [Zoloft] Allergy Unknown itching Verified 05/19/20 12:46 Sulfa (Sulfonamide Allergy Unknown unknown, Verified 05/19/20 12:46 Antibiotics) yeast infection sulfamethoxazole Allergy Unknown ITCHING Verified 05/19/20 12:46 [From BACTRIM] trimethoprim [From BACTRIM] Allergy Unknown ITCHING Verified 05/19/20 12:46 alprazolam [From XANAX] AdvReac Mild CONFUSION Verified 05/19/20 12:46 Plan Diagnosis/Plan: Unchanged (ESWL right) I have reviewed the history and physical and performed a pertinent physical examination on my patient. No changes have occurred unless specified.
--- NOTE | 2020-06-25 11:38 | PM.OP ---
Brief Operative Note Date of Service: 06/25/20 Pre-op diagnosis: renal stones Post-op diagnosis: same Procedure: right ESWL Surgeon: Jose Alfredo Addison MD Anesthesia: MAC Estimated blood loss (mL): 0 Pathology: none sent Condition: stable Disposition: same day
--- NOTE | 2020-06-25 11:40 | W.PM.OPN ---
Operative Note Operative Note Date of Service: 06/25/20 Narrative: PreOperative Diagnosis: right renal stones Post Operative Diagnosis: right renal stones Procedure: ESWL Surgeon: Dr Jose Alfredo Addison Anesthesia: mac/sedation Indications for procedure: They understand ESWL may be a staged procedure and subsequent intervention may be required based on imaging after ESWL. They also understand there is a risk of bleeding, infection, damage to adjacent organs. Procedure: After informed consent was verified the patient was brought to the operating room and placed in a supine position. Anesthesia was performed per protocol. Safety pause time-out was performed. Imaging was in the room and laterality confirmed. ESWL was performed. The 1st 500 shocks were performed at 60 hertz. These were performed with increasing power. Once maximum power was reached the rate was increased to 180 hertz. A total of 2500 shocks were given. Fluoroscopy showed stone disintegration. They tolerated procedure well and was transferred to the recovery area upon completion.
[2020-06-25 11:58] VITALS: BP 129/58; PULSE 77; RESP 16; TEMP 36.4; O2SAT 100
[2020-06-25 12:13] VITALS: BP 114/89; PULSE 70; RESP 18; O2SAT 98
--- NOTE | 2020-06-25 12:40 | PC.NURSE ---
1220 RET BACK TO PACU 6 AFTER USING BR VOID 300 CLEAR PINK URINE IV DCD DRESSED SELF AT BS CALL JOSHUA IN REACH
--- NOTE | 2020-06-25 12:42 | PC.NURSE ---
1230 REPORT TO JAMA IN PACU AND PT USING BR AGAIN BEFORE GOING TO DC AREA, AMB STEADY W ASST
== END 2020-06-25 13:15 | disposition home or self-care (01) ==
PROVIDERS: Anesthesiology; Visit Provider Urology
PROC: (CPT 50590; principal; 2020-06-25 09:40)
DX: N20.0 Calculus of kidney (principal); Z87.442 Personal history of urinary calculi; I10 Essential (primary) hypertension; Z79.899 Other long term (current) drug therapy; Z88.2 Allergy status to sulfonamides; Z88.8 Allergy status to other drugs, medicaments and biological substances
CPT/HCPCS: 50590; 74018; 81025; J1885; J2250; J2405; J3010

== ENCOUNTER 2020-07-10 10:12 | Outpatient (REF) | payer OTHER, SELFPAY ==
--- NOTE | ~2020-07-10 | US_ITS ---
EXAMINATION: US RETROPERITONEAL LIMITED (RENAL ONLY) CLINICAL INFORMATION: Calculus of kidney. COMPARISON: KUB 06/25/2020. Renal ultrasound 06/09/2020 [address] 05/05/2019. CT abdomen and pelvis 08/27/2018. TECHNIQUE: Real-time imaging of the kidneys. FINDINGS: Horseshoe kidney is present. RIGHT KIDNEY: 10.3 x 5.5 x 5.3 cm (SAG x AP x TRV). The kidney is normal in size, contour, and echogenicity. Renal cortical thickness is normal. No renal calculi or hydronephrosis. Within the lower pole there is a hypoechoic lesion present measuring 1.0 x 0.7 x 0.8 cm in size consistent with small cyst. Previously noted calculus is no longer seen. LEFT KIDNEY: 12.0 x 4.9 x 4.7 cm (SAG x AP x TRV). The kidney is normal in size, contour, and echogenicity. Renal cortical thickness is normal. No calculi or focal parenchymal lesions. No hydronephrosis. 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 Previously noted nonobstructing calculus within the right upper collecting system is not identified..
== END 2020-07-10 10:13 | disposition home or self-care (01) ==
LOC: HO.US 10:12
PROVIDERS: PCP Internal Medicine; Visit Provider Urology
DX: N20.0 Calculus of kidney (principal)
CPT/HCPCS: 76775

== ENCOUNTER → 2020-07-18 11:38 | Outpatient (BNVA) | payer OTHER, SELFPAY | PROVIDERS: PCP Internal Medicine; Visit Provider Urology ==

== ENCOUNTER 2020-09-25 12:33 | Outpatient (REF) | payer OTHER, SELFPAY ==
[2020-09-25 13:40] LABS: COVID-19 Test Negative (Negative)
== END 2020-09-25 12:34 | disposition home or self-care (01) ==
LOC: HO.LAB 12:33
PROVIDERS: PCP Internal Medicine; Visit Provider Physician Assistant Medical
DX: Z20.822 Contact with and (suspected) exposure to COVID-19 (principal)
CPT/HCPCS: 36415; 87635

== ENCOUNTER 2020-10-10 07:31 | Emergency (ER) | payer OTHER, SELFPAY ==
--- NOTE | 2020-10-10 | ECG_ITS ---
Test Reason : CP Blood Pressure : / mmHG Vent. Rate : 079 BPM Atrial Rate : 079 BPM P-R Int : 134 ms QRS Dur : 080 ms QT Int : 376 ms P-R-T Axes : 005 054 031 degrees QTc Int : 431 ms Normal sinus rhythm Normal ECG When compared with ECG of 21-FEB-2020 21:09, No significant change was found Referred By: Generic ED Physician Electronically Signed By:Ronni Glover
--- NOTE | ~2020-10-10 | XR_ITS ---
EXAMINATION: XR CHEST CLINICAL INFORMATION: Chest pain COMPARISON: Chest radiographs 02/21/2020, 04/03/2019 TECHNIQUE: Portable upright AP view of the chest was obtained. FINDINGS: There is no pneumothorax or pleural reaction. No airspace consolidation or groundglass opacity. The costophrenic sulci are clear. There is no effusion. The heart is normal in size. The hilar and mediastinal contours are normal. No visible acute bony abnormality. XR/XR chest 1V IMPRESSION: Unremarkable examination.
[2020-10-10 07:58] VITALS: BP 129/81; PULSE 70; RESP 18; TEMP 36.6; O2SAT 99; BMI 32.3
[2020-10-10 08:24] LABS: MANUAL DIFF FLAG NO
--- NOTE | 2020-10-10 08:27 | ED.CHESTPAIN ---
HPI - Chest Pain General Chief Complaint: Chest Pain Stated Complaint: Chest Pain Time Seen by Provider: 10/10/20 08:08 Source: patient Mode of arrival: ambulatory Limitations: no limitations History of Present Illness HPI narrative: 40 y/o female with history of anxiety presents to the ER with acute onset of left sided chest pain that started when she was driving to work. She reports she was dizzy and slightly SOB at the time as well. She got sweaty and nervous. She reports increased anxiety lately with increased life stressors with her family. She usually does not get chest pain when she has anxiety. She is on PRN ativan and has taken it a few times in the last week. She reports the pain is in her upper left chest, her left neck and back. Worse with palpation and movement of her arm. She states it feels likely a muscle spasm. She denies fever, chills, N/V/D, abdominal pain. He is nervous about cardiac etiology as her mother of ND at age 58. MD complaint: chest pain Onset (ago): minute(s) (45) Timing of current episode: constant Prior episodes: No Onset: during rest Pain location: left chest Pain radiation: left arm, back and neck Severity: moderate Quality: tightness and aching Relieving factors: rest Exacerbating factors: palpation and movement Treatment prior to arrival: none Risk Factors Coronary artery disease risk factors: none Thoracic aortic dissection risk factors: none Related Data On Oral Contraceptives: No Home Medications Medication Instructions Recorded Confirmed acetaminophen 325 mg tablet 650 mg PO QID PRN tab 05/19/20 07/18/20 (Tylenol) Previous Rx's Medication Instructions Recorded hydrocodone 5 mg-acetaminophen 325 1 tab PO Q4H PRN 7 Days #14 tab 06/25/20 mg tablet amlodipine 5 mg tablet 5 mg PO DAILY 90 Days #90 tab 07/18/20 ibuprofen 800 mg tablet 800 mg PO TID PRN 30 Days #90 tab 07/18/20 lorazepam 0.5 mg tablet 0.5 mg PO TID PRN 30 Days #90 tab 07/18/20 cyclobenzaprine 10 mg tablet 10 mg PO TID PRN #10 tab 10/10/20 naproxen 500 mg tablet 500 mg PO BID PRN #20 tab 10/10/20 Allergies Allergy/AdvReac Type Severity Reaction Status Date / Time celecoxib [From Celebrex] Allergy Intermediate ITCHING Verified 07/18/20 08:55 Effexor Allergy Unknown itching Verified 07/18/20 08:55 metronidazole Allergy Unknown rash Verified 07/18/20 08:55 morphine Allergy Unknown Hives Verified 07/18/20 08:55 sertraline [Zoloft] Allergy Unknown itching Verified 07/18/20 08:55 Sulfa (Sulfonamide Allergy Unknown unknown, Verified 07/18/20 08:55 Antibiotics) yeast infection sulfamethoxazole Allergy Unknown ITCHING Verified 07/18/20 08:55 [From BACTRIM] trimethoprim [From BACTRIM] Allergy Unknown ITCHING Verified 07/18/20 08:55 tramadol AdvReac Intermediate Nausea Verified 07/18/20 08:55 alprazolam [From XANAX] AdvReac Mild CONFUSION Verified 07/18/20 08:55 Review of Systems Review of Systems: Constitutional: No Fever, No Chills ENT/Mouth: No sore throat, No Rhinorrhea, No Swallowing Difficulty Eyes: No Eye Pain, No Swelling, No Redness Cardiovascular: + Chest Pain, + SOB, No Orthopnea, No Edema Respiratory: No Cough, No Sputum, No Wheezing, No dyspnea Gastrointestinal: No Nausea, No Vomiting, No Diarrhea, No abdominal Pain, No Hematochezia, No Melena Genitourinary: No Dysuria, No Urinary Frequency, No Hematuria Musculoskeletal: No joint pain, No Myalgias Skin: No Skin Lesions, No rash Neuro: No Weakness, No Numbness, + Dizziness, No Headache Psych: + Anxiety/Panic, No Depression Heme/Lymph: No Bruising, No Lymphadenopathy Endocrine: No Polyuria, No Polydipsia PMFSH Past Medical History Attestation statement: The following information was validated with the patient. Medical History Anxiety Benign essential hypertension Gestational HTN Obesity (BMI 30-39.9) Surgical History Back pain with history of spinal surgery H/O wrist surgery History of extraction of renal calculus Family History Family History Father HIV (human immunodeficiency virus infection) Mother CVD (cardiovascular disease) Maternal Grandmother Breast cancer Diabetes Hypertension Maternal Grandfather Prostate cancer Paternal Grandmother CVD (cardiovascular disease) Paternal Grandfather Prostate cancer Sister In good health Son In good health Social History Social History Alcohol intake: current Alcohol intake frequency: holidays/special occasions only Advance Directives: No Advance Directives Information Provided: No Patient : No Physical Exam Vital Signs: Vital Signs: Last Vital Signs Temp 98 F 10/10/20 07:58 Pulse 71 10/10/20 11:04 Resp 73 H 10/10/20 11:04 BP 107/69 10/10/20 11:04 Pulse Ox 96 10/10/20 11:04 Body Mass Index 32.3 Appearance: Alert. Oriented X3. No acute distress. Eyes: Pupils equal, round and reactive to light. ENT: Pharynx normal. Neck: Normal inspection. Neck supple. Left sided neck tenderness with palpable muscle spasm of upper trapezius. CVS: Normal heart rate and rhythm. Pulses normal. Tenderness of upper left chest wall. Respiratory: No respiratory distress. Breath sounds normal. Abdomen: Soft and nontender. +BS x4 Skin: Skin warm and dry. Normal skin color. Normal skin turgor. No rashes. Extremities: No lower extremity edema. Chest and back discomfort with passive ROM of left shoulder, joint itself is nontender. NV intact distally. Equal and symmetrical griup strength. Neuro: Oriented X 3. No motor deficit. No sensory deficit. Course Course Course Narrative: 40 y/o female presenting with left sided chest pain, SOB, diaphoresis with left arm and back pain that started on way to work this morning. Pain is reproducible and patient admits to increased anxiety and tension in her life. Her VS are stable. PERC negative. Will do full cardiac workup and monitor closely. Will treat with PO ativan and reassess. Suspect anxiety major contributor. Doubt ACS or PE. Reevaluation(s) Reevaluation #1: EKG benign. DDIMER negative as well as 1st troponin. Symptoms improved with Ativan. Will repeat troponin given CP less than 6 hours. Reevaluation #2: 2nd troponin negative. She is stable for discharge home with outpatient follow up. She is overall feeling improved. Suspect anxiety, stress underlying cause. Patient counseled and is agreeable with plan. MDM - Chest Pain Medical Records Data Attestation: I reviewed the patient's medical records. Lab Data Attestation: I reviewed the patient's lab results. Result diagrams: 10/10/20 08:13 10/10/20 08:13 Labs: Lab Results 10/10/20 10/10/20 10/10/20 Range/Units 08:13 08:13 08:13 WBC 7.8 (4.8-10.8) X10*3/uL RBC 4.67 (4.20-5.50) X10*6/uL Hgb 14.0 (12.0-16.0) g/dl Hct 44.0 (37-47) % MCV 94.2 (80-98) fL MCH 30.0 (27.0-33.0) pg MCHC 31.8 (31.0-35.0) g/dl RDW 12.5 (11.0-16.0) % Plt Count 305 (160-400) X10*3/uL MPV 10.6 (9.4-12.3) fL Immature Gran % (Auto) 0.3 (0.0-0.4) % Neut % (Auto) 63.8 (45-73) % Lymph % (Auto) 23.8 (20-40) % [place] % (Auto) 9.4 (2-11) % Eos % (Auto) 2.2 (0-4) % Baso % (Auto) 0.5 (0-2) % Lymph # (Auto) 1.9 (1.2-4.9) X10*3/uL [place] # (Auto) 0.7 (0.1-1.2) X10*3/uL Eos # (Auto) 0.2 (0.0-0.4) X10*3/uL Baso # (Auto) 0.0 (0.0-0.2) X10*3/uL Abs Immat Gran (auto) 0.02 (0.00-0.03) X10*3/uL Absolute Neuts (auto) 5.0 (2.0-8.3) X10*3/uL Absolute Nucleated RBC 0.000 (0.0-0.012) X10*3/uL Nucleated RBC % (auto) 0.0 (0.0-0.2) /100WBC D-Dimer NG/ML Sodium 141 (135-145) mmol/L Potassium 4.2 (3.3-5.1) mmol/L Chloride 106 (96-108) mmol/L Carbon Dioxide 24 (22-29) mmol/L Anion Gap 15 (12-20) BUN 10 (9-16) mg/dL Creatinine 0.83 (0.5-1.4) mg/dL Estim Creat Clear Calc 96.7 Estimated GFR > 60 Random Glucose 96 (60-115) mg/dL Calcium 8.8 (8.4-10.2) mg/dL Troponin I High Sens < 3.5 (<3.5-17.0) ng/L 10/10/20 10/10/20 Range/Units 10:00 11:34 WBC (4.8-10.8) X10*3/uL RBC (4.20-5.50) X10*6/uL Hgb (12.0-16.0) g/dl Hct (37-47) % MCV (80-98) fL MCH (27.0-33.0) pg MCHC (31.0-35.0) g/dl RDW (11.0-16.0) % Plt Count (160-400) X10*3/uL MPV (9.4-12.3) fL Immature Gran % (Auto) (0.0-0.4) % Neut % (Auto) (45-73) % Lymph % (Auto) (20-40) % [place] % (Auto) (2-11) % Eos % (Auto) (0-4) % Baso % (Auto) (0-2) % Lymph # (Auto) (1.2-4.9) X10*3/uL [place] # (Auto) (0.1-1.2) X10*3/uL Eos # (Auto) (0.0-0.4) X10*3/uL Baso # (Auto) (0.0-0.2) X10*3/uL Abs Immat Gran (auto) (0.00-0.03) X10*3/uL Absolute Neuts (auto) (2.0-8.3) X10*3/uL Absolute Nucleated RBC (0.0-0.012) X10*3/uL Nucleated RBC % (auto) (0.0-0.2) /100WBC D-Dimer < 200 NG/ML Sodium (135-145) mmol/L Potassium (3.3-5.1) mmol/L Chloride (96-108) mmol/L Carbon Dioxide (22-29) mmol/L Anion Gap (12-20) BUN (9-16) mg/dL Creatinine (0.5-1.4) mg/dL Estim Creat Clear Calc Estimated GFR Random Glucose (60-115) mg/dL Calcium (8.4-10.2) mg/dL Troponin I High Sens < 3.5 (<3.5-17.0) ng/L ECG Data ECG #1: Attestation: I personally reviewed and interpreted this ECG as follows: ECG interpretation date: 10/10/20 ECG interpretation time: 08:40 Prior ECG tracings: available for review Interpretation: normal sinus rhythm, HR 79 bpm, normal NC interval, normal QTC, No ST segment depressions or elevations. Scores Heart Score History: -0- slightly suspicious ECG: -0- normal Age: -0- < or = 45 Risk factory: -1- 1 or 2 risk factors Troponin: -0- < or = normal limit Score: 1 Risk: 1.7% Discharge Plan Discharge Clinical Impression: Atypical chest pain, Anxiety, Muscle spasm Patient Disposition: Home, Self-Care Instructions: Chest Pain (ED), Muscle Spasm (ED), Anxiety (ED) Additional Instructions: Your lab workup today was unremarkable. Your EKG was normal. Your symptoms are most likely due to a combination of anxiety and stress. Recommend rest, no strenuous activity. Continue to take your ativan as needed for anxiety. Follow up with your doctor this week. Use ice and/or heat to your neck and back. Take the prescribed muscle relaxer and anti-inflammatory as directed. Prescriptions: New cyclobenzaprine 10 mg tablet 10 mg PO TID PRN (Reason: muscle spasm) Qty: 10 RF: 0 naproxen 500 mg tablet 500 mg PO BID PRN (Reason: pain) Qty: 20 RF: 0 No Action hydrocodone-acetaminophen 5-325 mg tablet 1 tab PO Q4H PRN (Reason: pain) 7 Days Qty: 14 RF: 0 amlodipine 5 mg tablet 5 mg PO DAILY 90 Days Qty: 90 RF: 1 ibuprofen 800 mg tablet 800 mg PO TID PRN (Reason: pain) 30 Days Qty: 90 RF: 2 lorazepam 0.5 mg tablet 0.5 mg PO TID PRN (Reason: anxiety) 30 Days Qty: 90 RF: 0 acetaminophen [Tylenol] 325 mg tablet 650 mg PO QID PRNRF: 0 Stand Alone Forms: Work/School Release
[2020-10-10 08:30] LABS: Basophils Percent Auto 0.5 % (0-2); Eosinophils Absolute Auto 0.2 X10*3/uL (0.0-0.4); Eosinophils Percent Auto 2.2 % (0-4); Imm Gran Abs Auto 0.02 X10*3/uL (0.00-0.03); Imm Gran Pct Auto 0.3 % (0.0-0.4); Lymphocytes Absolute Auto 1.9 X10*3/uL (1.2-4.9); Lymphocytes Percent Auto 23.8 % (20-40); Mean Corpuscular HGB Conc 31.8 g/dl (31.0-35.0); Mean Corpuscular Volume 94.2 fL (80-98); Mean Platelet Volume 10.6 fL (9.4-12.3); Monocytes Absolute Auto 0.7 X10*3/uL (0.1-1.2); Monocytes Percent Auto 9.4 % (2-11); Neutrophils Percent Auto 63.8 % (45-73); Platelet Count 305 X10*3/uL (160-400); Red Blood Count 4.67 X10*6/uL (4.20-5.50); Red Cell Distribution Width 12.5 % (11.0-16.0); White Blood Count 7.8 X10*3/uL (4.8-10.8)
[2020-10-10] MEDS: LORazepam 1 MG TABLET PO (08:34)
[2020-10-10 08:53] LABS: Anion Gap 15 (12-20); Blood Urea Nitrogen 10 mg/dL (9-16); Calcium 8.8 mg/dL (8.4-10.2); Carbon Dioxide 24 mmol/L (22-29); Chloride 106 mmol/L (96-108); Creatinine Clr Calc Pharmacy 96.7; Estimated Glomerular Filt Rate > 60; Glucose Random 96 mg/dL (60-115); Potassium 4.2 mmol/L (3.3-5.1); Sodium 141 mmol/L (135-145)
[2020-10-10 09:01] LABS: Troponin-I High Sensitivity < 3.5 ng/L (<3.5-17.0)
[2020-10-10 10:21] LABS: D Dimer < 200 NG/ML
[2020-10-10] MEDS: Ketorolac Tromethamine 15 MG/ML VIAL 30 MG IVPUSH (11:02)
[2020-10-10 11:04] VITALS: BP 107/69; PULSE 71; RESP 73; O2SAT 96
[2020-10-10 12:13] LABS: Troponin-I High Sensitivity < 3.5 ng/L (<3.5-17.0)
[2020-10-10 12:23] VITALS: PULSE 77; RESP 18; O2SAT 97
== END 2020-10-10 12:23 | disposition home or self-care (01) ==
PROVIDERS: Physician Assistant; Emergency Provider Emergency Medicine Emergency Medical Services; PCP Internal Medicine
DX: R07.89 Other chest pain (principal); F41.9 Anxiety disorder, unspecified; M62.838 Other muscle spasm; I10 Essential (primary) hypertension; Z79.899 Other long term (current) drug therapy
CPT/HCPCS: 36415; 71045; 80048; 84484; 85025; 85379; 93005; 96374; 99284; J1885

== ENCOUNTER 2020-11-06 15:13 | Outpatient (REF) | payer OTHER, SELFPAY ==
[2020-11-06 16:58] LABS: Glucose Urine UA NEG (NEG); Leukocyte Esterase Urine NEG (NEG); Nitrite Urine NEG (NEG); Urine Blood NEG (NEG); Urine Ketones 5 MG/DL (NEG); Urine Protein TRACE MG/DL (NEG-TRACE)
[2020-11-06 17:01] LABS: Appearance Urine HAZY; Color Urine YELLOW
== END 2020-11-06 15:14 | disposition home or self-care (01) ==
LOC: HO.LAB 15:13
PROVIDERS: PCP Internal Medicine; Visit Provider Internal Medicine
DX: R30.0 Dysuria (principal)
CPT/HCPCS: 81003

== ENCOUNTER 2020-11-09 01:12 | Emergency (ER) | payer OTHER, SELFPAY ==
--- NOTE | ~2020-11-09 | CT_ITS ---
EXAMINATION: CT ABDOMEN AND PELVIS WITHOUT CONTRAST CLINICAL INFORMATION: Right flank pain. COMPARISON: CT abdomen/pelvis dated 08/27/2018 TECHNIQUE: Multidetector volumetric imaging was performed from the superior aspect of the liver through the pubic symphysis. Sagittal and coronal reformatted images were obtained on the technologist's workstation. This CT examination was performed using dose optimization techniques as appropriate, variously including the following: *Automated exposure control *Adjustment of mA and/or kV according to patient size (this includes techniques or standardized protocols for targeted exams where dose is matched to indication/reason for exam; i.e. extremities or head) *Use of iterative reconstruction technique DLP: 714 mGy-cm FINDINGS: LUNG BASES: The visualized lung bases are unremarkable. LIVER, GALLBLADDER, AND BILIARY TREE: The liver is normal in size, shape, and attenuation. No focal hepatic lesion or biliary ductal dilatation is present. The gallbladder is unremarkable with no evidence of radiopaque gallstones, gallbladder wall thickening, or obvious pericholecystic inflammatory changes. PANCREAS: Unremarkable. SPLEEN: Unremarkable. ADRENAL GLANDS: Unremarkable. KIDNEYS AND URETERS: Horseshoe kidney. There is [id number] hydroureteronephrosis of the right moiety, upstream from a 5 x 4 x 3mm calculus within the distal right ureter, approximately 2.3 cm from the ureterovesical junction. No additional urinary calculi. BLADDER: Unremarkable. GASTROINTESTINAL TRACT: The small and large bowel are unremarkable. The appendix is unremarkable. ABDOMINAL WALL: No significant hernia is appreciated. LYMPH NODES: Normal. VASCULAR: Unremarkable. PELVIC VISCERA: Uterus and adnexa unremarkable. OSSEOUS STRUCTURES: Unremarkable. CT/CT abdomen pelvis wo con IMPRESSION: * [id number] RIGHT hydroureteronephrosis upstream from a 5 mm calculus within the distal RIGHT ureter. * No additional urinary calculi. * Horseshoe kidney.
[2020-11-09 01:39] VITALS: BP 184/87; PULSE 70; RESP 20; TEMP 36.6; O2SAT 98; BMI 30.2
[2020-11-09 02:00] VITALS: BP 164/80; PULSE 70; RESP 20; TEMP 36.6; O2SAT 94
--- NOTE | 2020-11-09 02:07 | ED.FEMALEGU ---
HPI - Female Genitourinary General Chief complaint: Urogenital-Female Stated complaint: Flank pain Time Seen by Provider: 11/09/20 01:59 Source: patient Mode of arrival: ambulatory Limitations: no limitations History of Present Illness HPI Narrative: Patient comes emergency room complaining of right-sided flank pain. Patient states that she has been having intermittent symptoms throughout the last week, however the pain got very intense approximately 2 hours ago. Patient is known to have history of kidney stones. Patient states she has had surgery for them, last time in May 2020. Patient states she spoke to her PCP regarding the flank pain, initially patient thought she had a UTI, her urinalysis was negative for UTI. Patient took 500 mg of Tylenol at 00:30, no relief. Patient complaining of nausea, no vomiting, no diarrhea Related Data Home Medications Medication Instructions Recorded Confirmed acetaminophen 325 mg tablet 650 mg PO QID PRN tab 05/19/20 07/18/20 (Tylenol) Previous Rx's Medication Instructions Recorded hydrocodone 5 mg-acetaminophen 325 1 tab PO Q4H PRN 7 Days #14 tab 06/25/20 mg tablet amlodipine 5 mg tablet 5 mg PO DAILY 90 Days #90 tab 07/18/20 ibuprofen 800 mg tablet 800 mg PO TID PRN 30 Days #90 tab 07/18/20 lorazepam 0.5 mg tablet 0.5 mg PO TID PRN 30 Days #90 tab 07/18/20 cyclobenzaprine 10 mg tablet 10 mg PO TID PRN #10 tab 10/10/20 naproxen 500 mg tablet 500 mg PO BID PRN #20 tab 10/10/20 acetaminophen 500 mg tablet 500 mg PO Q6H PRN #14 tab 11/09/20 ketorolac 10 mg tablet 10 mg PO TID PRN 5 Days #7 tab 11/09/20 ondansetron HCl 4 mg tablet 4 mg PO Q6H PRN #10 tab 11/09/20 (Zofran) prednisone 20 mg tablet 20 mg PO DAILY #3 tab 11/09/20 tamsulosin 0.4 mg capsule 0.4 mg PO DAILY #7 cap 11/09/20 Allergies Allergy/AdvReac Type Severity Reaction Status Date / Time celecoxib [From Celebrex] Allergy Intermediate ITCHING Verified 11/09/20 01:39 Effexor Allergy Unknown itching Verified 11/09/20 01:39 metronidazole Allergy Unknown rash Verified 11/09/20 01:39 sertraline [Zoloft] Allergy Unknown itching Verified 11/09/20 01:39 Sulfa (Sulfonamide Allergy Unknown unknown, Verified 11/09/20 01:39 Antibiotics) yeast infection sulfamethoxazole Allergy Unknown ITCHING Verified 11/09/20 01:39 [From BACTRIM] trimethoprim [From BACTRIM] Allergy Unknown ITCHING Verified 11/09/20 01:39 tramadol AdvReac Intermediate Nausea Verified 11/09/20 01:39 alprazolam [From XANAX] AdvReac Mild CONFUSION Verified 11/09/20 01:39 Review of Systems Review of Systems: Constitutional : No Weight loss, No Fever, No Chills, No Night Sweats, No Fatigue, No Malaise ENT/Mouth : No Hearing loss, No Ear Pain, No Nasal Congestion, No Sinus Pain, No Hoarseness, No sore throat, No Rhinorrhea, No Swallowing Difficulty Eyes: No Eye Pain, No Swelling, No Redness, No Foreign Body, No Discharge, No Vision Changes Cardiovascular : No Chest Pain, No SOB, No Dyspnea on Exertion, No Orthopnea, No Edema, No Palpitations Respiratory : No Cough, No Sputum, No Wheezing, No Smoke Exposure, No Dyspnea Gastrointestinal : No Nausea, No Vomiting, No Diarrhea, No Constipation, No abdominal Pain, No Hematochezia, No Melena Genitourinary : no irregular bleeding, No Dysuria, No Urinary Frequency, No Hematuria, No Urinary Incontinence, No Urgency complaining of right-sided flank pain, mild dysuria, No Hesitancy Musculoskeletal : No joint pain, No Myalgias, No Joint Swelling Skin : No Skin Lesions, No rash Neuro : No Weakness, No Numbness, No Paresthesias, No Loss of Consciousness, No Dizziness, No Headache Psych : No Anxiety/Panic, No Depression, No SI/HI/AH/VH, No Social Issues, Heme/Lymph: No Bruising, No Bleeding,No Lymphadenopathy Endocrine : No Polyuria, No Polydipsia, No Temperature Intolerance [facility] Past Medical History Medical History Anxiety Benign essential hypertension Gestational HTN Obesity (BMI 30-39.9) Surgical History Back pain with history of spinal surgery H/O wrist surgery History of extraction of renal calculus Family History Family History Father HIV (human immunodeficiency virus infection) Mother CVD (cardiovascular disease) Maternal Grandmother Breast cancer Diabetes Hypertension Maternal Grandfather Prostate cancer Paternal Grandmother CVD (cardiovascular disease) Paternal Grandfather Prostate cancer Sister In good health Son In good health Social History Social History Alcohol intake: current Alcohol intake frequency: holidays/special occasions only Advance Directives: No Patient : No Physical Exam Vital Signs: Vital Signs: Last Vital Signs Temp 97.9 F 11/09/20 02:00 Pulse 70 11/09/20 02:00 Resp 20 11/09/20 02:00 BP 164/80 H 11/09/20 02:00 Pulse Ox 94 11/09/20 02:00 Body Mass Index 30.2 Const: Other: Appearance: Alert. Oriented X3. Teary Eyes: Pupils equal, round and reactive to light. ENT: Pharynx normal. Neck: Normal inspection. Neck supple. No lymph nodes noted. No crepitus CVS: Normal heart rate and rhythm. Pulses normal. Normal S1 and S2 Respiratory: No respiratory distress. Breath sounds normal. No Wheezing. No rales Abdomen: Soft and nontender. No rigidity. No distention. Positive CVA tenderness on the right side Skin: Skin warm and dry. Normal skin color. Normal skin turgor. Extremities: No lower extremity edema. No lower extremity edema. No Lacerations. No Rash Neuro: Oriented X 3. No motor deficit. No sensory deficit. Moving all extermities. No slurred speech. Course Course Course Narrative: Patient has a 5 mm stone in the right ureter. I discussed with the patient that it is at the size where he can either pass with medication versus stay obstructing. At this time, patient does not have a UTI, white blood cell count likely secondary to reactive leukocytosis. MDM - Female Genitourinary Lab Data Result diagrams: 11/09/20 02:16 11/09/20 02:16 Labs: Lab Results 11/09/20 11/09/20 11/09/20 Range/Units 02:16 02:16 02:16 WBC 11.5 H (4.8-10.8) X10*3/uL RBC 4.57 (4.20-5.50) X10*6/uL Hgb 14.0 (12.0-16.0) g/dl Hct 42.3 (37-47) % MCV 92.6 (80-98) fL MCH 30.6 (27.0-33.0) pg MCHC 33.1 (31.0-35.0) g/dl RDW 12.1 (11.0-16.0) % Plt Count 295 (160-400) X10*3/uL MPV 10.7 (9.4-12.3) fL Immature Gran % (Auto) 0.3 (0.0-0.4) % Neut % (Auto) 63.0 (45-73) % Lymph % (Auto) 24.7 (20-40) % [place] % (Auto) 9.0 (2-11) % Eos % (Auto) 2.5 (0-4) % Baso % (Auto) 0.5 (0-2) % Lymph # (Auto) 2.9 (1.2-4.9) X10*3/uL [place] # (Auto) 1.0 (0.1-1.2) X10*3/uL Eos # (Auto) 0.3 (0.0-0.4) X10*3/uL Baso # (Auto) 0.1 (0.0-0.2) X10*3/uL Abs Immat Gran (auto) 0.04 H (0.00-0.03) X10*3/uL Absolute Neuts (auto) 7.2 (2.0-8.3) X10*3/uL Absolute Nucleated RBC 0.000 (0.0-0.012) X10*3/uL Nucleated RBC % (auto) 0.0 (0.0-0.2) /100WBC Sodium 139 (135-145) mmol/L Potassium 3.7 (3.3-5.1) mmol/L Chloride 104 (96-108) mmol/L Carbon Dioxide 28 (22-29) mmol/L Anion Gap 11 L (12-20) BUN 10 (9-16) mg/dL Creatinine 0.80 (0.5-1.4) mg/dL Estim Creat Clear Calc 104.1 Estimated GFR > 60 Random Glucose 102 (60-115) mg/dL Calcium 9.1 (8.4-10.2) mg/dL Total Bilirubin 0.4 (0.0-1.0) mg/dL Direct Bilirubin 0.2 (0.0-0.5) mg/dL AST 14 (5-31) U/L ALT 8 (0-31) U/L Alkaline Phosphatase 62 (39-117) U/L Total Protein 6.8 (6.5-8.0) g/dL Albumin 4.1 (3.5-5.0) g/dL Urine Color YELLOW Urine Appearance CLEAR Urine pH 7.0 (5.0-8.0) Ur Specific [place] 1.015 (1.005-1.025) Urine Protein NEG (NEG-TRACE) MG/DL Urine Glucose (UA) NEG (NEG) MG/DL Urine Ketones NEG (NEG) MG/DL Urine Blood NEG (NEG) Urine Nitrite NEG (NEG) Ur Leukocyte Esterase NEG (NEG) Urine Test (NEGATIVE) 11/09/20 Range/Units 02:16 WBC (4.8-10.8) X10*3/uL RBC (4.20-5.50) X10*6/uL Hgb (12.0-16.0) g/dl Hct (37-47) % MCV (80-98) fL MCH (27.0-33.0) pg MCHC (31.0-35.0) g/dl RDW (11.0-16.0) % Plt Count (160-400) X10*3/uL MPV (9.4-12.3) fL Immature Gran % (Auto) (0.0-0.4) % Neut % (Auto) (45-73) % Lymph % (Auto) (20-40) % [place] % (Auto) (2-11) % Eos % (Auto) (0-4) % Baso % (Auto) (0-2) % Lymph # (Auto) (1.2-4.9) X10*3/uL [place] # (Auto) (0.1-1.2) X10*3/uL Eos # (Auto) (0.0-0.4) X10*3/uL Baso # (Auto) (0.0-0.2) X10*3/uL Abs Immat Gran (auto) (0.00-0.03) X10*3/uL Absolute Neuts (auto) (2.0-8.3) X10*3/uL Absolute Nucleated RBC (0.0-0.012) X10*3/uL Nucleated RBC % (auto) (0.0-0.2) /100WBC Sodium (135-145) mmol/L Potassium (3.3-5.1) mmol/L Chloride (96-108) mmol/L Carbon Dioxide (22-29) mmol/L Anion Gap (12-20) BUN (9-16) mg/dL Creatinine (0.5-1.4) mg/dL Estim Creat Clear Calc Estimated GFR Random Glucose (60-115) mg/dL Calcium (8.4-10.2) mg/dL Total Bilirubin (0.0-1.0) mg/dL Direct Bilirubin (0.0-0.5) mg/dL AST (5-31) U/L ALT (0-31) U/L Alkaline Phosphatase (39-117) U/L Total Protein (6.5-8.0) g/dL Albumin (3.5-5.0) g/dL Urine Color Urine Appearance Urine pH (5.0-8.0) Ur Specific [place] (1.005-1.025) Urine Protein (NEG-TRACE) MG/DL Urine Glucose (UA) (NEG) MG/DL Urine Ketones (NEG) MG/DL Urine Blood (NEG) Urine Nitrite (NEG) Ur Leukocyte Esterase (NEG) Urine Test NEGATIVE (NEGATIVE) Imaging Data CT scan - abdomen: Radiologist's impression: CANDIDA BASES: The visualized lung bases are unremarkable.? LIVER, GALLBLADDER, AND BILIARY TREE: The liver is normal in size, shape, and attenuation. No focal hepatic lesion or biliary ductal dilatation is present. The gallbladder is unremarkable with no evidence of radiopaque gallstones, gallbladder wall thickening, or obvious pericholecystic inflammatory changes.? PANCREAS: Unremarkable.? SPLEEN: Unremarkable.? ADRENAL GLANDS: Unremarkable.? KIDNEYS AND URETERS: Horseshoe kidney. There is [id number] hydroureteronephrosis of the right moiety, upstream from a 5 x 4 x 3mm calculus within the distal right ureter, approximately 2.3 cm from the ureterovesical junction. No additional urinary calculi. BLADDER: Unremarkable.? GASTROINTESTINAL TRACT: The small and large bowel are unremarkable. The appendix is unremarkable.? ABDOMINAL WALL: No significant hernia is appreciated.? LYMPH NODES: Normal. VASCULAR: Unremarkable. PELVIC VISCERA: Uterus and adnexa unremarkable.? OSSEOUS STRUCTURES: Unremarkable.? CT/CT abdomen pelvis wo con IMPRESSION: *? [id number] RIGHT hydroureteronephrosis upstream from a 5 mm calculus within the distal RIGHT ureter. *? No additional urinary calculi. *? Horseshoe kidney.? Discharge Plan Discharge Clinical Impression: Ureterolithiasis Patient Disposition: Home, Self-Care Instructions: Ureteral Stones (ED) Additional Instructions: Please follow-up with your primary care physician tomorrow. If you have any worsening or new symptoms, please return to the emergency room or call 911 Prescriptions: New tamsulosin 0.4 mg capsule 0.4 mg PO DAILY Qty: 7 RF: 0 prednisone 20 mg tablet 20 mg PO DAILY Qty: 3 RF: 0 ketorolac 10 mg tablet 10 mg PO TID PRN (Reason: pain) 5 Days Qty: 7 RF: 0 ondansetron HCl [Zofran] 4 mg tablet 4 mg PO Q6H PRN (Reason: nausea and vomiting) Qty: 10 RF: 0 acetaminophen 500 mg tablet 500 mg PO Q6H PRN (Reason: pain) Qty: 14 RF: 0 No Action hydrocodone-acetaminophen 5-325 mg tablet 1 tab PO Q4H PRN (Reason: pain) 7 Days Qty: 14 RF: 0 cyclobenzaprine 10 mg tablet 10 mg PO TID PRN (Reason: muscle spasm) Qty: 10 RF: 0 naproxen 500 mg tablet 500 mg PO BID PRN (Reason: pain) Qty: 20 RF: 0 amlodipine 5 mg tablet 5 mg PO DAILY 90 Days Qty: 90 RF: 1 ibuprofen 800 mg tablet 800 mg PO TID PRN (Reason: pain) 30 Days Qty: 90 RF: 2 lorazepam 0.5 mg tablet 0.5 mg PO TID PRN (Reason: anxiety) 30 Days Qty: 90 RF: 0 acetaminophen [Tylenol] 325 mg tablet 650 mg PO QID PRNRF: 0
[2020-11-09 02:22] LABS: Basophils Absolute Auto 0.1 X10*3/uL (0.0-0.2); Basophils Percent Auto 0.5 % (0-2); Eosinophils Absolute Auto 0.3 X10*3/uL (0.0-0.4); Eosinophils Percent Auto 2.5 % (0-4); Hematocrit 42.3 % (37-47); Imm Gran Abs Auto 0.04 X10*3/uL (0.00-0.03); Imm Gran Pct Auto 0.3 % (0.0-0.4); Lymphocytes Absolute Auto 2.9 X10*3/uL (1.2-4.9); Lymphocytes Percent Auto 24.7 % (20-40); MANUAL DIFF FLAG NO; Mean Corpuscular HGB Conc 33.1 g/dl (31.0-35.0); Mean Corpuscular Hemoglobin 30.6 pg (27.0-33.0); Mean Corpuscular Volume 92.6 fL (80-98); Mean Platelet Volume 10.7 fL (9.4-12.3); Neutrophils Absolute Auto 7.2 X10*3/uL (2.0-8.3); Platelet Count 295 X10*3/uL (160-400); Red Blood Count 4.57 X10*6/uL (4.20-5.50); Red Cell Distribution Width 12.1 % (11.0-16.0); White Blood Count 11.5 X10*3/uL (4.8-10.8)
[2020-11-09 02:23] LABS: Glucose Urine UA NEG (NEG); Leukocyte Esterase Urine NEG (NEG); Nitrite Urine NEG (NEG); Specific Gravity - Urine 1.015 (1.005-1.025); Urine Blood NEG (NEG); Urine Ketones NEG (NEG); Urine Protein NEG (NEG-TRACE)
[2020-11-09 02:24] LABS: Appearance Urine CLEAR; Color Urine YELLOW
[2020-11-09 02:26] LABS: UPreg QC Valid YES; Urine Pregnancy NEGATIVE (NEGATIVE)
[2020-11-09] MEDS: 0.9 % Sodium Chloride 1,000 ML 999 ML IVCONT (02:32)
[2020-11-09] MEDS: ondansetron HCL 4 MG/2 ML VIAL IVPUSH (02:33)
[2020-11-09] MEDS: Ketorolac Tromethamine 15 MG/ML VIAL 30 MG IVPUSH (02:33)
[2020-11-09 02:41] LABS: Alanine Aminotransferase 8 U/L (0-31); Albumin Level 4.1 g/dL (3.5-5.0); Alkaline Phosphatase 62 U/L (39-117); Anion Gap 11 (12-20); Aspartate Amino Transferase 14 U/L (5-31); Bilirubin Direct 0.2 mg/dL (0.0-0.5); Bilirubin Total 0.4 mg/dL (0.0-1.0); Blood Urea Nitrogen 10 mg/dL (9-16); Calcium 9.1 mg/dL (8.4-10.2); Carbon Dioxide 28 mmol/L (22-29); Chloride 104 mmol/L (96-108); Creatinine Clr Calc Pharmacy 104.1; Estimated Glomerular Filt Rate > 60; Glucose Random 102 mg/dL (60-115); Potassium 3.7 mmol/L (3.3-5.1); Sodium 139 mmol/L (135-145); Total Protein 6.8 g/dL (6.5-8.0)
[2020-11-09 03:56] VITALS: RESP 14
[2020-11-09] MEDS: Morphine Sulfate 4 MG/ML CARTRIDGE IVPUSH (03:56)
[2020-11-09] MEDS: predniSONE 20 MG TABLET PO (03:58)
[2020-11-09] MEDS: Tamsulosin HCL 0.4 MG CAPSULE PO (03:58)
== END 2020-11-09 04:32 | disposition home or self-care (01) ==
PROVIDERS: Emergency Provider Emergency Medicine; PCP Internal Medicine
DX: N20.1 Calculus of ureter (principal); R10.9 Unspecified abdominal pain; Z79.899 Other long term (current) drug therapy
CPT/HCPCS: 36415; 74176; 80048; 80076; 81003; 81025; 85025; 96365; 96375; 99284; J1885; J2270; J2405

== ENCOUNTER 2020-11-09 21:39 | Inpatient (IN) | payer OTHER, SELFPAY ==
--- NOTE | ~2020-11-09 | FL_ITS ---
EXAMINATION: Intraoperative fluoroscopy CLINICAL INFORMATION: Stone COMPARISON: CT abdomen pelvis November 09, 2020 TECHNIQUE: Intraoperative fluoroscopy was provided for use by Dr. Addison. A total of 1 image was saved to PACS. A radiologist was not present during imaging. Today's dictation is only for administrative purposes to document intraoperative fluoroscopic usage. TOTAL FLUOROSCOPIC TIME: 31 seconds FL/FL guidance in OR FINDINGS~\^^ Intraoperative fluoroscopy provided for use by Dr. Addison. Please see operative note for detailed findings.
[2020-11-09 21:58] VITALS: BP 141/80; PULSE 82; RESP 20; TEMP 36.5; O2SAT 98; BMI 32.1
[2020-11-09 22:58] LABS: Basophils Absolute Auto 0.1 X10*3/uL (0.0-0.2); Basophils Percent Auto 0.4 % (0-2); Eosinophils Absolute Auto 0.3 X10*3/uL (0.0-0.4); Eosinophils Percent Auto 1.8 % (0-4); Hematocrit 40.5 % (37-47); Hemoglobin 13.4 g/dl (12.0-16.0); Imm Gran Abs Auto 0.05 X10*3/uL (0.00-0.03); Imm Gran Pct Auto 0.3 % (0.0-0.4); Lymphocytes Absolute Auto 3.1 X10*3/uL (1.2-4.9); Lymphocytes Percent Auto 18.5 % (20-40); MANUAL DIFF FLAG NO; Mean Corpuscular HGB Conc 33.1 g/dl (31.0-35.0); Mean Corpuscular Hemoglobin 30.9 pg (27.0-33.0); Mean Corpuscular Volume 93.3 fL (80-98); Mean Platelet Volume 10.8 fL (9.4-12.3); Monocytes Absolute Auto 1.4 X10*3/uL (0.1-1.2); Monocytes Percent Auto 8.3 % (2-11); Neutrophils Absolute Auto 11.8 X10*3/uL (2.0-8.3); Neutrophils Percent Auto 70.7 % (45-73); Platelet Count 288 X10*3/uL (160-400); Red Blood Count 4.34 X10*6/uL (4.20-5.50); Red Cell Distribution Width 12.2 % (11.0-16.0); White Blood Count 16.6 X10*3/uL (4.8-10.8)
--- NOTE | 2020-11-09 23:06 | ED_ITS ---
HPI - Abdominal Pain General Chief Complaint: Abdominal Pain Stated Complaint: kidney stones Time Seen by Provider: 11/09/20 22:27 Source: patient and family Mode of arrival: ambulatory Limitations: no limitations History of Present Illness HPI narrative: 40 y/o female presenting back to the ER with ongoing right flank pain for the 1 week. She was seen here for the same last night and was diagnosed with a kidney stone. She was discharged with tylenol, zofran, flomax & toradol. She has been taking the medications as directed but the pain persists. She reports the pain is 10/10, located in her right flank and wraps around to her right lower abdomen. She is nauseated but has not vomited. She has history of several bouts of kidney stones requiring stent x4 and lithotripsy x1 all on the right side. She denies fevers, dysuria and hematuria. MD elicited complaint: flank pain Pertinent past history: kidney stones Onset (ago): week(s) (1) Pain Consistency: constant Location: R flank Severity: severe Pain scale (0-10): 10 Quality: stabbing and sharp Radiation: RLQ Migration to: no migration Exacerbating factors: movement Relieving factors: nothing Context: history of similar episodes Associated symptoms: nausea Treatments prior to arrival: NSAIDs Related Data Home Medications Medication Instructions Recorded Confirmed acetaminophen 325 mg tablet 650 mg PO QID PRN tab 05/19/20 07/18/20 (Tylenol) Previous Rx's Medication Instructions Recorded hydrocodone 5 mg-acetaminophen 325 1 tab PO Q4H PRN 7 Days #14 tab 06/25/20 mg tablet amlodipine 5 mg tablet 5 mg PO DAILY 90 Days #90 tab 07/18/20 ibuprofen 800 mg tablet 800 mg PO TID PRN 30 Days #90 tab 07/18/20 lorazepam 0.5 mg tablet 0.5 mg PO TID PRN 30 Days #90 tab 07/18/20 cyclobenzaprine 10 mg tablet 10 mg PO TID PRN #10 tab 10/10/20 naproxen 500 mg tablet 500 mg PO BID PRN #20 tab 10/10/20 acetaminophen 500 mg tablet 500 mg PO Q6H PRN #14 tab 11/09/20 ketorolac 10 mg tablet 10 mg PO TID PRN 5 Days #7 tab 11/09/20 ondansetron HCl 4 mg tablet 4 mg PO Q6H PRN #10 tab 11/09/20 (Zofran) tamsulosin 0.4 mg capsule 0.4 mg PO DAILY #7 cap 11/09/20 Allergies Allergy/AdvReac Type Severity Reaction Status Date / Time celecoxib [From Celebrex] Allergy Intermediate ITCHING Verified 11/09/20 01:39 Effexor Allergy Unknown itching Verified 11/09/20 01:39 metronidazole Allergy Unknown rash Verified 11/09/20 01:39 sertraline [Zoloft] Allergy Unknown itching Verified 11/09/20 01:39 Sulfa (Sulfonamide Allergy Unknown unknown, Verified 11/09/20 01:39 Antibiotics) yeast infection sulfamethoxazole Allergy Unknown ITCHING Verified 11/09/20 01:39 [From BACTRIM] trimethoprim [From BACTRIM] Allergy Unknown ITCHING Verified 11/09/20 01:39 tramadol AdvReac Intermediate Nausea Verified 11/09/20 01:39 alprazolam [From XANAX] AdvReac Mild CONFUSION Verified 11/09/20 01:39 Review of Systems Constitutional: Denies chills, Denies fever(s) and Reports headache(s) Eyes: Reports no additional eye complaints Reports Normal hearing present and Reports headache(s) Cardiovascular: Denies chest pain and Denies dyspnea Respiratory: Denies cough and Denies dyspnea Gastrointestinal: Reports abdominal pain, Denies constipation, Denies diarrhea, Reports nausea and Denies vomiting Genitourinary: Denies hematuria, Denies dysuria, Denies pelvic pain, Reports flank pain and Reports urinary urgency Musculoskeletal: Reports back pain Skin/Breast: Denies rash Reports Normal hearing present and Reports headache(s) Psychiatric: Reports anxiety Hematologic/Lymphatic: Denies easy bleeding and Denies easy bruising Physical Exam Vital Signs: Vital Signs: Last Vital Signs Temp 98.3 F 11/09/20 23:46 Pulse 81 11/10/20 00:13 Resp 15 11/10/20 00:15 BP 148/83 H 11/10/20 00:13 Pulse Ox 98 11/10/20 00:13 Body Mass Index 32.1 Const: General: cooperative, healthy appearing and no acute distress Nutritional Appearance: average body habitus Orientation/consciousness: patient oriented x3 Limitations: no limitations HENMT: Head: Yes normal to inspection, Yes normocephalic and Yes atraumatic Ears: hearing grossly normal bilaterally and external ears normal General n ose exam: Normal external nose present and Normal nares present Face and sinus: Yes normal facial exam and Yes face symmetric Mouth: Normal oral and palatal mucosa present, lip normal and tongue normal Teeth and gingiva: dentition normal and gingiva normal Throat: Yes posterior oropharynx normal, Yes tonsils normal and Yes uvula midline Eyes: General: appearance normal, both eyes and all related structures Neck: Neck: Yes normal visual inspection Chest: Chest palpation & inspection: normal inspection of the chest Resp: Effort & Inspection: normal respiratory effort and able to speak in complete sentences Auscultation: clear to auscultation bilaterally Cardio: Rate: regular rate Rhythm: regular rhythm Heart sounds: S1 no rmal heart sound present and S2 normal heart sound present GI: Inspection: Yes normal to inspection Palpation (GI): Soft to palpation, not firm, Tenderness to palpation present (GI) in the RLQ; Negative for with no rebound tenderness and Guarding due to palpation present (GI) in the RLQ Auscultation: normal bowel sounds Rectal Exam - Female: deferred : General: Yes CVA tenderness (on the right) Back/Spine/Pelvis: Back: CVA tenderness (on the right) Skin: General skin exam: no rashes or lesions noted Neuro: General: patient oriented x3, gait normal and moves all extremities Cranial nerves: Yes Normal hearing present Extrem: General: Yes normal to inspection Psych: Appearance: grossly normal and well kempt Mental Status: mental status grossly normal Speech and movement: Normal speech and movement present Affect: Sad affect present Attitude: cooperative Course Course Course Narrative: 40 y/o female with history of kidney stones requiring intervention who presents to the ER with severe right sided flank pain, known kidney stone on CT yesterday. CT showing mild/moderate hydronephrosis with a 5x4x3 stone in the distal right ureter, about 2.3 cm from the UVJ. Will repeat labs to assess renal function, check UA to r/o infection. U/S not available at this time to reassess the hydro. Hold off on repeat imaging for now. IV morphine, decadron and morphine ordered as well as IVF. May require admission vs home with PO narcotics for better pain control. Reevaluation(s) Reevaluation #1: WBC 16K. No fevers. Hemodynamically stable. Awaiting UA to assess for infection. Pain remains poorly controlled after morphine, will give trial of IV dilaudid. Reevaluation #2: UA is positive for infection. IV rochepin ordered. Not septic. Will check lactic acid and send blood cultures before we give abx. Patient's pain is improved to 5/10 but still uncomfortable. She was updated on new deve lopment of infected UA and need for admission to the hospital. She agrees with plan. Spoke with Dr. Segura who is aware. Reevaluation #3: Spoke with Dr. Chávez who will admit the patient. Consultations Consultation #1: Urology MDM - Abdominal Pain Lab Data Result diagrams: 11/09/20 22:52 11/09/20 22:52 Labs: Lab Results 11/09/20 11/09/20 11/09/20 Range/Units 22:52 22:52 23:45 WBC 16.6 H (4.8-10.8) X10*3/uL RBC 4.34 (4.20-5.50) X10*6/uL Hgb 13.4 (12.0-16.0) g/dl Hct 40.5 (37-47) % MCV 93.3 (80-98) fL MCH 30.9 (27.0-33.0) pg MCHC 33.1 (31.0-35.0) g/dl RDW 12.2 (11.0-16.0) % Plt Count 288 (160-400) X10*3/uL MPV 10.8 (9.4-12.3) fL Immature Gran % (Auto) 0.3 (0.0-0.4) % Neut % (Auto) 70.7 (45-73) % Lymph % (Auto) 18.5 L (20-40) % Patrick % (Auto) 8.3 (2-11) % Eos % (Auto) 1.8 (0-4) % Baso % (Auto) 0.4 (0-2) % Lymph # (Auto) 3.1 (1.2-4.9) X10*3/uL Patrick # (Auto) 1.4 H (0.1-1.2) X10*3/uL Eos # (Auto) 0.3 (0.0-0.4) X10*3/uL Baso # (Auto) 0.1 (0.0-0.2) X10*3/uL Abs Immat Gran (auto) 0.05 H (0.00-0.03) X10*3/uL Absolute Neuts (auto) 11.8 H (2.0-8.3) X10*3/uL Absolute Nucleated RBC 0.000 (0.0-0.012) X10*3/uL Nucleated RBC % (auto) 0.0 (0.0-0.2) /100WBC Sodium 142 (135-145) mmol/L Potassium 3.7 (3.3-5.1) mmol/L Chloride 106 (96-108) mmol/L Carbon Dioxide 30 H (22-29) mmol/L Anion Gap 10 L (12-20) BUN 11 (9-16) mg/dL Creatinine 1.03 (0.5-1.4) mg/dL Estim Creat Clear Calc 77.7 Estimated GFR 59 Random Glucose 122 H (60-115) mg/dL Calcium 9.2 (8.4-10.2) mg/dL Urine Color YELLOW Urine Appearance HAZY Urine pH 6.0 (5.0-8.0) Ur Specific [place] 1.020 (1.005-1.025) Urine Protein NEG (NEG-TRACE) MG/DL Urine Glucose (UA) NEG (NEG) MG/DL Urine Ketones NEG (NEG) MG/DL Urine Blood 1+ H (NEG) Urine Nitrite NEG (NEG) Ur Leukocyte Esterase 1+ H (NEG) Urine RBC 1-4 (0) /HPF Urine WBC 10-14 H (0-4) /HPF Ur Squamous Epith Cells 2+ /LPF Calcium Oxalate Crystal 1+ /LPF Urine Bacteria 4+ /LPF Critical Care Time Critical Care Time Critical Care Time: Yes Total Critical Care Time: 35 Attestation: I have personally provided critical care time exclusive of time spent on separately billable procedures. Time includes review of lab data, radiology results, discussion with consultants, and monitoring for potential decompensation. Intervention performed as documented. Discharge Plan Discharge Clinical Impression: Hydronephrosis with renal calculous obstruction UTI (urinary tract infection) Qualifiers: Urinary tract infection type: acute cystitis Hematuria presence: with hematuria Qualified Code(s): N30.01 - Acute cystitis with hematuria Patient Disposition: Admitted As Inpatient [facility] Past Medical History Medical History Anxiety Benign essential hypertension Gestational HTN Obesity (BMI 30-39.9) Surgical History Back pain with history of spinal surgery H/O wrist surgery History of extraction of renal calculus Family History Family History Father HIV (human immunodeficiency virus infection) Mother CVD (cardiovascular disease) Maternal Grandmother Breast cancer Diabetes Hypertension Maternal Grandfather Prostate cancer Paternal Grandmother CVD (cardiovascular disease) Paternal Grandfather Prostate cancer Sister In good health Son In good health Social History Social History Alcohol intake: unknown Patient Tobacco Use Status: Never used Tobacco Use of substances other than those prescribed or required for medical reasons: No Advance Directives: No Advance Directives Information Provided: No Patient : No
[2020-11-09 23:13] LABS: Anion Gap 10 (12-20); Blood Urea Nitrogen 11 mg/dL (9-16); Calcium 9.2 mg/dL (8.4-10.2); Carbon Dioxide 30 mmol/L (22-29); Chloride 106 mmol/L (96-108); Creatinine Clr Calc Pharmacy 77.7; Estimated Glomerular Filt Rate 59; Glucose Random 122 mg/dL (60-115); Potassium 3.7 mmol/L (3.3-5.1); Sodium 142 mmol/L (135-145)
[2020-11-09 23:16] VITALS: RESP 15
[2020-11-09] MEDS: ondansetron HCL 4 MG/2 ML VIAL IVPUSH (23:16)
[2020-11-09] MEDS: Morphine Sulfate 4 MG/ML CARTRIDGE IVPUSH (23:16)
[2020-11-09] MEDS: dexAMETHasone sod phosphate 4 MG/ML VIAL 8 MG IVPUSH (23:16)
[2020-11-09] MEDS: 0.9 % Sodium Chloride 1,000 ML 999 ML IVCONT (23:17)
[2020-11-09 23:46] VITALS: BP 137/90; PULSE 76; RESP 16; TEMP 36.8; O2SAT 97
[2020-11-09 23:54] LABS: Glucose Urine UA NEG (NEG); Leukocyte Esterase Urine 1+ (NEG); Nitrite Urine NEG (NEG); UACC Culture Trigger YES; Urine Blood 1+ (NEG); Urine Ketones NEG (NEG); Urine Protein NEG (NEG-TRACE)
[2020-11-09 23:57] LABS: Appearance Urine HAZY; Color Urine YELLOW
[2020-11-10] VITALS (8 sets, daily range): BP systolic 99–148; BP diastolic 54–83; PULSE 69–90; RESP 15–20; TEMP 36.6–37.5; O2SAT 96–98
[2020-11-10 00:03] LABS: Bacteria Urine 4+ /LPF; Calcium Oxalate Crystals Urine 1+ /LPF; Squamous Epithelial Cell Urine 2+ /LPF
[2020-11-10] MEDS: HYDROmorphone HCl 1 MG/ML SYRINGE IVPUSH (00:15)
--- NOTE | 2020-11-10 02:08 | PM.IMHP ---
History of Present Illness Date of Service: 11/10/20 Chief Complaint: Right flank pain 40-year-old female with a past medical history of hypertension, obesity, anxiety, recurrent renal calculi presented to the hospital with a chief complaint of right flank pain. Patient initially presented to the hospital earlier last night and was subsequently discharged home with the oral pain medications; after she went home patient continued to have symptoms and was worsening hence decided to come back to the ER for further evaluation. Patient complains of urinary frequency and burning; Denies any fevers Denies any chest pain palpitations lightheadedness or dizziness. Patient reported that he had prior history of recurrent kidney stones requiring stent placements, lithotripsy. Review of all other systems is negative except mentioned above ER course: Per ER team patient lab showed leukocytosis; urinalysis abnormal consistent with UTI; given ceftriaxone. CT scan showed [id number]-[id number] hydronephrosis on the right side with 5x4x3 stone in the distal right ureter; discussed with the on-call Urology who recommended admission to the medicine team for 24 hours of antibiotics and will plan for intervention after that. [facility] Medical History Anxiety Benign essential hypertension Gestational HTN Obesity (BMI 30-39.9) Family History Father HIV (human immunodeficiency virus infection) Mother CVD (cardiovascular disease) Maternal Grandmother Breast cancer Diabetes Hypertension Maternal Grandfather Prostate cancer Paternal Grandmother CVD (cardiovascular disease) Paternal Grandfather Prostate cancer Sister In good health Son In good health Surgical History Back pain with history of spinal surgery H/O wrist surgery History of extraction of renal calculus Social History Alcohol intake: unknown Patient Tobacco Use Status: Never used Tobacco Use of substances other than those prescribed or required for medical reasons: No Advance Directives: No Advance Directives Information Provided: No Patient : No Meds Allergies Allergy/AdvReac Type Severity Reaction Status Date / Time celecoxib [From Celebrex] Allergy Intermediate ITCHING Verified 11/09/20 01:39 Effexor Allergy Unknown itching Verified 11/09/20 01:39 metronidazole Allergy Unknown rash Verified 11/09/20 01:39 sertraline [Zoloft] Allergy Unknown itching Verified 11/09/20 01:39 Sulfa (Sulfonamide Allergy Unknown unknown, Verified 11/09/20 01:39 Antibiotics) yeast infection sulfamethoxazole Allergy Unknown ITCHING Verified 11/09/20 01:39 [From BACTRIM] trimethoprim [From BACTRIM] Allergy Unknown ITCHING Verified 11/09/20 01:39 tramadol AdvReac Intermediate Nausea Verified 11/09/20 01:39 alprazolam [From XANAX] AdvReac Mild CONFUSION Verified 11/09/20 01:39 Active Medications: Current Medications Generic Name Dose Route Start Last Admin Trade Name Freq PRN Reason Stop Dose Admin Ceftriaxone Sodium 1 gm/ 50 mls @ 100 mls/hr 11/10/20 02:15 Sodium Chloride IV Q24H [facility] Pharmacy Consult 1 each 11/10/20 01:35 Consult Rx Perform Med Rec MISCELLANE ONCE PRN Consult order Home Medications Medication Instructions Recorded Confirmed Last Taken Type acetaminophen 325 mg tablet 650 mg PO QID PRN tab 05/19/20 07/18/20 Unknown History (Tylenol) Physical Exam Vital Signs and Narrative: Vital Signs: Last Vital Signs Temp 98.3 F 11/09/20 23:46 Pulse 81 11/10/20 00:13 Resp 15 11/10/20 00:15 BP 148/83 H 11/10/20 00:13 Pulse Ox 98 11/10/20 00:13 Body Mass Index 32.1 Gen: Appears be in no acute distress HEENT: NCAT, Moist mucosa. Pulmonary: Vesicular breath sounds, fair air entry CVS: Normal S1-S2 Abdomen: BS+, Soft, tender in the right flank; Extremities: Warm well perfused Neuro: Alert and awake. Results Labs CBC and Chem 7: 11/09/20 22:52 11/09/20 22:52 Labs: Laboratory Results - last 24 hr 11/09/20 11/09/20 11/09/20 22:52 22:52 23:45 MCV 93.3 MCH 30.9 MCHC 33.1 RDW 12.2 Plt Count 288 MPV 10.8 Immature Gran % (Auto) 0.3 Neut % (Auto) 70.7 Lymph % (Auto) 18.5 L [place] % (Auto) 8.3 Eos % (Auto) 1.8 Baso % (Auto) 0.4 Lymph # (Auto) 3.1 [place] # (Auto) 1.4 H Eos # (Auto) 0.3 Baso # (Auto) 0.1 Abs Immat Gran (auto) 0.05 H Absolute Neuts (auto) 11.8 H Absolute Nucleated RBC 0.000 Nucleated RBC % (auto) 0.0 Anion Gap 10 L Estim Creat Clear Calc 77.7 Estimated GFR 59 Random Glucose 122 H Calcium 9.2 Urine Color YELLOW Urine Appearance HAZY Urine pH 6.0 Ur Specific [place] 1.020 Urine Protein NEG Urine Glucose (UA) NEG Urine Ketones NEG Urine Blood 1+ H Urine Nitrite NEG Ur Leukocyte Esterase 1+ H Urine RBC 1-4 Urine WBC 10-14 H Ur Squamous Epith Cells 2+ Calcium Oxalate Crystal 1+ Urine Bacteria 4+ Assessment and Plan (1) Hydronephrosis with renal calculous obstruction: Status: Acute (2) UTI (urinary tract infection): Qualifiers: Hematuria presence: with hematuria Urinary tract infection type: acute cystitis Qualified Code(s): N30.01 - Acute cystitis with hematuria Status: Acute 40-year-old female with a past medical history of hypertension, obesity, anxiety, recurrent renal calculi presented to the hospital with a chief complaint of right flank pain. Right renal calculi/right-sided hydronephrosis: Urology was notified. Plan for intervention 24 hours post antibiotics; likely on Tuesday morning. Pain control Supportive care UTI: Continue ceftriaxone. Follow cultures. DVT prophylaxis: Subcu heparin Code status: Full code Quality Stroke Does the patient have a stroke diagnosis?: No VTE Prior VTE?: No VTE Risk Level:: Medical - moderate - high VTE Device Contraindication: N/A - Device Ordered VTE Drug Contraindication: Treatment Not Indicated
[2020-11-10] MEDS: cefTRIAXone sodium 1 GM in 0.9 % Sodium Chloride 50 ML IV (02:09)
[2020-11-10] MEDS: oxyCODONE HCl Immed Release 5 MG TABLET PO (02:09)
[2020-11-10 02:58] LABS: MANUAL DIFF FLAG NO
[2020-11-10 03:00] LABS: Basophils Percent Auto 0.2 % (0-2); Eosinophils Percent Auto 0.1 % (0-4); Hematocrit 43.8 % (37-47); Hemoglobin 14.2 g/dl (12.0-16.0); Imm Gran Abs Auto 0.09 X10*3/uL (0.00-0.03); Imm Gran Pct Auto 0.6 % (0.0-0.4); Lymphocytes Absolute Auto 1.3 X10*3/uL (1.2-4.9); Lymphocytes Percent Auto 7.9 % (20-40); Mean Corpuscular HGB Conc 32.4 g/dl (31.0-35.0); Mean Corpuscular Hemoglobin 30.6 pg (27.0-33.0); Mean Corpuscular Volume 94.4 fL (80-98); Mean Platelet Volume 11.2 fL (9.4-12.3); Monocytes Absolute Auto 0.5 X10*3/uL (0.1-1.2); Monocytes Percent Auto 3.3 % (2-11); Neutrophils Absolute Auto 14.1 X10*3/uL (2.0-8.3); Neutrophils Percent Auto 87.9 % (45-73); Platelet Count 252 X10*3/uL (160-400); Red Blood Count 4.64 X10*6/uL (4.20-5.50); Red Cell Distribution Width 12.4 % (11.0-16.0); White Blood Count 16.1 X10*3/uL (4.8-10.8)
[2020-11-10 03:06] LABS: COVID-19 Test Negative (Negative)
[2020-11-10] MEDS: Dextrose 5 % and 0.45 % NaCl 1,000 ML 100 ML IVCONT ×2 (03:07→12:04)
[2020-11-10 03:13] LABS: Anion Gap 12 (12-20); Blood Urea Nitrogen 9 mg/dL (9-16); Carbon Dioxide 26 mmol/L (22-29); Chloride 105 mmol/L (96-108); Creatinine Clr Calc Pharmacy 70.2; Estimated Glomerular Filt Rate 52; Glucose Random 153 mg/dL (60-115); Potassium 4.2 mmol/L (3.3-5.1); Sodium 139 mmol/L (135-145)
[2020-11-10 03:17] LABS: Lactic Acid 2.3 mmol/L (0.5-2.0)
[2020-11-10 04:57] LABS: Reflex Lactate? Lactic Acid Added
[2020-11-10 05:45] LABS: ~Lactic Acid-LAB USE ONLY 2.6 mmol/L (0.5-2.0)
[2020-11-10] MEDS: hydrOXYzine HCL 25 MG TABLET PO (06:24)
[2020-11-10 07:29] LABS: Reflex Lactate? 2 Y
[2020-11-10 08:03] LABS: ~Lactic Acid-LAB USE ONLY 2.1 mmol/L (0.5-2.0)
--- NOTE | 2020-11-10 08:46 | PC.NURSE ---
called c awaiting for report
[2020-11-10] MEDS: amLODIPine Besylate 5 MG TABLET PO (09:47)
[2020-11-10] MEDS: 0.9 % Sodium Chloride Flush 3 ML SYRINGE IVFLUSH (09:49)
--- NOTE | 2020-11-10 10:16 | P.CNUR_ITS ---
History of Present Illness Consult details Consult date: 11/10/20 Reason for consult: other (Patient with distal right 5 x 4 x 3 stone associated UTI currently plan 24 hours antibiotics followed by removal of stone on Tuesday. Discussed in detail with the patient risks benefits complications morbidity mortality reviewed all questions answered informed consent obtained) Review of Systems Review of Systems: Yes all other systems are reviewed and are negative [facility] Past Medical History Medical History Anxiety Benign essential hypertension Gestational HTN Obesity (BMI 30-39.9) Family History Family History Father HIV (human immunodeficiency virus infection) Mother CVD (cardiovascular disease) Maternal Grandmother Breast cancer Diabetes Hypertension Maternal Grandfather Prostate cancer Paternal Grandmother CVD (cardiovascular disease) Paternal Grandfather Prostate cancer Sister In good health Son In good health Surgical History Surgical History Back pain with history of spinal surgery H/O wrist surgery History of extraction of renal calculus Social History Social History Alcohol intake: unknown Patient Tobacco Use Status: Never used Tobacco Use of substances other than those prescribed or required for medical reasons: No Advance Directives: No Advance Directives Information Provided: No Patient : No Meds Allergies Allergy/AdvReac Type Severity Reaction Status Date / Time celecoxib [From Celebrex] Allergy Intermediate ITCHING Verified 11/09/20 01:39 Effexor Allergy Unknown itching Verified 11/09/20 01:39 metronidazole Allergy Unknown rash Verified 11/09/20 01:39 sertraline [Zoloft] Allergy Unknown itching Verified 11/09/20 01:39 Sulfa (Sulfonamide Allergy Unknown unknown, Verified 11/09/20 01:39 Antibiotics) yeast infection sulfamethoxazole Allergy Unknown ITCHING Verified 11/09/20 01:39 [From BACTRIM] trimethoprim [From BACTRIM] Allergy Unknown ITCHING Verified 11/09/20 01:39 tramadol AdvReac Intermediate Nausea Verified 11/09/20 01:39 alprazolam [From XANAX] AdvReac Mild CONFUSION Verified 11/09/20 01:39 Active Medications: Current Medications Generic Name Dose Route Start Last Admin Trade Name Freq PRN Reason Stop Dose Admin Acetaminophen 650 mg 11/10/20 02:07 Acetaminophen 325 Mg Tablet PO Q6H PRN Pain, Mild (Pain Scale 1-3) Amlodipine Besylate 5 mg 11/10/20 09:00 11/10/20 09:47 Amlodipine Besylate 5 Mg Tablet PO 5 mg DAILY TONA Administration Protocol Hydromorphone HCl 0.5 mg 11/10/20 02:07 Hydromorphone Hcl 0.5 Mg/0.5 Ml Syringe IVPUSH Q4H PRN Pain, Severe (Pain Scale 7-10) Protocol Hydroxyzine HCl 25 mg 11/10/20 06:14 11/10/20 06:24 Hydroxyzine Hcl 25 Mg Tablet PO 25 mg Q6H PRN Administration anxiety/restlessness Ceftriaxone Sodium 1 gm/ 50 mls @ 100 mls/hr 11/10/20 02:15 11/10/20 02:11 Sodium Chloride IV Not Given Q24H TONA Dextrose/Sodium Chloride 1,000 mls @ 100 mls/hr 11/10/20 02:15 11/10/20 03:07 D51/2ns IVCONT 100 mls/hr .Q10H TONA Administration Lorazepam 0.5 mg 11/10/20 06:30 Lorazepam 0.5 Mg Tablet PO TID PRN anxiety Melatonin 6 mg 11/10/20 02:07 Melatonin 3 Mg Tablet PO BEDTIME PRN Insomnia Sodium Chloride 3 ml 11/10/20 08:00 11/10/20 09:49 0.9 % Sodium Chloride Flush 3 Ml Syringe IVFLUSH 3 ml QSHIFT TONA Administration Physical Exam Vital Signs: Vital Signs: Last Vital Signs Temp 97.9 F 11/10/20 09:33 Pulse 90 11/10/20 09:47 Resp 18 11/10/20 09:33 BP 136/79 11/10/20 09:47 Pulse Ox 96 11/10/20 09:33 Body Mass Index 32.1 Const: Other: Patient with flank pain Orientation/consciousness: patient oriented x3 HENMT: Head: Yes normal to inspection Neck: Neck: Yes normal visual inspection Chest: Chest palpation & inspection: normal inspection of the chest Resp: Effort & Inspection: normal respiratory effort and able to speak in complete sentences Cardio: Rate: regular rate Rhythm: regular rhythm GI: Inspection: Yes normal to inspection : General: Yes CVA tenderness Back/Spine/Pelvis: Back: CVA tenderness Skin: General skin exam: turgor normal Neuro: General: patient oriented x3 Extrem: General: Yes full ROM Psych: Appearance: grossly normal Results Labs Result diagrams: 11/10/20 02:43 11/10/20 02:42 Labs: Abnormal lab results 11/09/20 11/09/20 11/09/20 Range/Units 22:52 22:52 23:45 WBC 16.6 H (4.8-10.8) X10*3/uL Immature Gran % (Auto) (0.0-0.4) % Neut % (Auto) (45-73) % Lymph % (Auto) 18.5 L (20-40) % [place] # (Auto) 1.4 H (0.1-1.2) X10*3/uL Abs Immat Gran (auto) 0.05 H (0.00-0.03) X10*3/uL Absolute Neuts (auto) 11.8 H (2.0-8.3) X10*3/uL Carbon Dioxide 30 H (22-29) mmol/L Anion Gap 10 L (12-20) Random Glucose 122 H (60-115) mg/dL Lactic Acid (0.5-2.0) mmol/L Lactic Acid Fup @ 2Hr (0.5-2.0) mmol/L Lactic Acid Fup @ 4Hr (0.5-2.0) mmol/L Urine Blood 1+ H (NEG) Ur Leukocyte Esterase 1+ H (NEG) Urine WBC 10-14 H (0-4) /HPF 11/10/20 11/10/20 11/10/20 Range/Units 02:42 02:42 02:43 WBC 16.1 H (4.8-10.8) X10*3/uL Immature Gran % (Auto) 0.6 H (0.0-0.4) % Neut % (Auto) 87.9 H (45-73) % Lymph % (Auto) 7.9 L (20-40) % [place] # (Auto) (0.1-1.2) X10*3/uL Abs Immat Gran (auto) 0.09 H (0.00-0.03) X10*3/uL Absolute Neuts (auto) 14.1 H (2.0-8.3) X10*3/uL Carbon Dioxide (22-29) mmol/L Anion Gap (12-20) Random Glucose 153 H (60-115) mg/dL Lactic Acid 2.3 H* (0.5-2.0) mmol/L Lactic Acid Fup @ 2Hr (0.5-2.0) mmol/L Lactic Acid Fup @ 4Hr (0.5-2.0) mmol/L Urine Blood (NEG) Ur Leukocyte Esterase (NEG) Urine WBC (0-4) /HPF 11/10/20 11/10/20 Range/Units 05:23 07:34 WBC (4.8-10.8) X10*3/uL Immature Gran % (Auto) (0.0-0.4) % Neut % (Auto) (45-73) % Lymph % (Auto) (20-40) % [place] # (Auto) (0.1-1.2) X10*3/uL Abs Immat Gran (auto) (0.00-0.03) X10*3/uL Absolute Neuts (auto) (2.0-8.3) X10*3/uL Carbon Dioxide (22-29) mmol/L Anion Gap (12-20) Random Glucose (60-115) mg/dL Lactic Acid (0.5-2.0) mmol/L Lactic Acid Fup @ 2Hr 2.6 H* (0.5-2.0) mmol/L Lactic Acid Fup @ 4Hr 2.1 H* (0.5-2.0) mmol/L Urine Blood (NEG) Ur Leukocyte Esterase (NEG) Urine WBC (0-4) /HPF Short CBC 11/09/20 11/10/20 Range/Units 22:52 02:43 WBC 16.6 H 16.1 H (4.8-10.8) X10*3/uL Hgb 13.4 14.2 (12.0-16.0) g/dl Hct 40.5 43.8 (37-47) % Plt Count 288 252 (160-400) X10*3/uL BMP 11/09/20 11/10/20 22:52 02:42 Sodium 142 139 Potassium 3.7 4.2 Chloride 106 105 Carbon Dioxide 30 H 26 BUN 11 9 Creatinine 1.03 1.14 Calcium 9.2 9.0 Urine 11/09/20 Range/Units 23:45 Urine Color YELLOW Urine Appearance HAZY Urine pH 6.0 (5.0-8.0) Ur Specific [place] 1.020 (1.005-1.025) Urine Protein NEG (NEG-TRACE) MG/DL Urine Glucose (UA) NEG (NEG) MG/DL All other labs normal. Imaging Abdomen CT scan report/results: image reviewed Assessment and Plan (1) Hydronephrosis with renal calculous obstruction: Status: Acute IV antibiotics for the 1st 24 hours admission subsequently ureteroscopy of stone Abril discussed in detail the patient risks benefits complications morbidity mortality reviewed all questions answered informed consent obtained Procedures Date of Service Date of Service: 11/10/20
--- NOTE | 2020-11-10 10:46 | P.PNIM_ITS ---
Progress Note: A&P (1) Hydronephrosis with renal calculous obstruction: Status: Acute (2) UTI (urinary tract infection): Status: Acute Assessment and Plan: 40-year-old female with a past medical history of hypertension, obesity, anxie ty, recurrent renal calculi presented to the hospital with a chief complaint of right flank pain. Right renal calculi/right-sided hydronephrosis? Plan for intervention 24 hours post antibiotics; likely on Tuesday morning. Pain control Supportive care UTI Continue ceftriaxone.? Follow cultures. Will add Pyridium for urinary discomfort DVT prophylaxis:? Subcu heparin Code status:? Full code Attending Dr. Pryor Subjective Subjective Date of Service: 11/10/20 Review of Systems Follow-up hydronephrosis Right-sided flank pain Still some nausea but better Physical Exam Vital Signs: Vital Signs: Last Vital Signs Temp 97.9 F 11/10/20 09:33 Pulse 90 11/10/20 09:47 Resp 18 11/10/20 09:33 BP 136/79 11/10/20 09:47 Pulse Ox 96 11/10/20 09:33 Body Mass Index 32.1 Appearing in no acute distress lung sounds are clear to auscultation heart regular rate rhythm, clear S1, S2 positive bowel sounds, abdomen is soft, nontender neuro patient is alert x3, no focal deficits Objective Data Current Medications Generic Name Dose Route Start Last Admin Trade Name Freq PRN Reason Stop Dose Admin Acetaminophen 650 mg 11/10/20 02:07 Acetaminophen 325 Mg Tablet PO Q6H PRN Pain, Mild (Pain Scale 1-3) Amlodipine Besylate 5 mg 11/10/20 09:00 11/10/20 09:47 Amlodipine Besylate 5 Mg Tablet PO 5 mg DAILY TONA Administration Protocol Hydromorphone HCl 0.5 mg 11/10/20 02:07 Hydromorphone Hcl 0.5 Mg/0.5 Ml Syringe IVPUSH Q4H PRN Pain, Severe (Pain Scale 7-10) Protocol Hydroxyzine HCl 25 mg 11/10/20 06:14 11/10/20 06:24 Hydroxyzine Hcl 25 Mg Tablet PO 25 mg Q6H PRN Administration anxiety/restlessness Ceftriaxone Sodium 1 gm/ 50 mls @ 100 mls/hr 11/10/20 02:15 11/10/20 02:11 Sodium Chloride IV Not Given Q24H [facility] Dextrose/Sodium Chloride 1,000 mls @ 100 mls/hr 11/10/20 02:15 11/10/20 03:07 D51/2ns IVCONT 100 mls/hr .Q10H TONA Administration Lorazepam 0.5 mg 11/10/20 06:30 Lorazepam 0.5 Mg Tablet PO TID PRN anxiety Melatonin 6 mg 11/10/20 02:07 Melatonin 3 Mg Tablet PO BEDTIME PRN Insomnia Sodium Chloride 3 ml 11/10/20 08:00 11/10/20 09:49 0.9 % Sodium Chloride Flush 3 Ml Syringe IVFLUSH 3 ml QSHIFT TONA Administration Labs CBC & Chem 7: 11/10/20 02:43 11/10/20 02:42 Labs: Laboratory Results - last 24 hr 11/09/20 11/09/20 11/09/20 22:52 22:52 23:45 MCV 93.3 MCH 30.9 MCHC 33.1 RDW 12.2 Plt Count 288 MPV 10.8 Immature Gran % (Auto) 0.3 Neut % (Auto) 70.7 Lymph % (Auto) 18.5 L [place] % (Auto) 8.3 Eos % (Auto) 1.8 Baso % (Auto) 0.4 Lymph # (Auto) 3.1 [place] # (Auto) 1.4 H Eos # (Auto) 0.3 Baso # (Auto) 0.1 Abs Immat Gran (auto) 0.05 H Absolute Neuts (auto) 11.8 H Absolute Nucleated RBC 0.000 Nucleated RBC % (auto) 0.0 Anion Gap 10 L Estim Creat Clear Calc 77.7 Estimated GFR 59 Random Glucose 122 H Lactic Acid Lactic Acid Fup @ 2Hr Lactic Acid Fup @ 4Hr Calcium 9.2 Urine Color YELLOW Urine Appearance HAZY Urine pH 6.0 Ur Specific [place] 1.020 Urine Protein NEG Urine Glucose (UA) NEG Urine Ketones NEG Urine Blood 1+ H Urine Nitrite NEG Ur Leukocyte Esterase 1+ H Urine RBC 1-4 Urine WBC 10-14 H Ur Squamous Epith Cells 2+ Calcium Oxalate Crystal 1+ Urine Bacteria 4+ COVID-19 (JERRELL) COVID-19 Clin Com 11/10/20 11/10/20 11/10/20 02:36 02:42 02:42 MCV MCH MCHC RDW Plt Count MPV Immature Gran % (Auto) Neut % (Auto) Lymph % (Auto) [place] % (Auto) Eos % (Auto) Baso % (Auto) Lymph # (Auto) [place] # (Auto) Eos # (Auto) Baso # (Auto) Abs Immat Gran (auto) Absolute Neuts (auto) Absolute Nucleated RBC Nucleated RBC % (auto) Anion Gap 12 Estim Creat Clear Calc 70.2 Estimated GFR 52 Random Glucose 153 H Lactic Acid 2.3 H* Lactic Acid Fup @ 2Hr Lactic Acid Fup @ 4Hr Calcium 9.0 Urine Color Urine Appearance Urine pH Ur Specific [place] Urine Protein Urine Glucose (UA) Urine Ketones Urine Blood Urine Nitrite Ur Leukocyte Esterase Urine RBC Urine WBC Ur Squamous Epith Cells Calcium Oxalate Crystal Urine Bacteria COVID-19 (JERRELL) Negative COVID-19 Clin Com See Note 11/10/20 11/10/20 11/10/20 02:43 05:23 07:34 MCV 94.4 MCH 30.6 MCHC 32.4 RDW 12.4 Plt Count 252 MPV 11.2 Immature Gran % (Auto) 0.6 H Neut % (Auto) 87.9 H Lymph % (Auto) 7.9 L [place] % (Auto) 3.3 Eos % (Auto) 0.1 Baso % (Auto) 0.2 Lymph # (Auto) 1.3 [place] # (Auto) 0.5 Eos # (Auto) 0.0 Baso # (Auto) 0.0 Abs Immat Gran (auto) 0.09 H Absolute Neuts (auto) 14.1 H Absolute Nucleated RBC 0.000 Nucleated RBC % (auto) 0.0 Anion Gap Estim Creat Clear Calc Estimated GFR Random Glucose Lactic Acid Lactic Acid Fup @ 2Hr 2.6 H* Lactic Acid Fup @ 4Hr 2.1 H* Calcium Urine Color Urine Appearance Urine pH Ur Specific [place] Urine Protein Urine Glucose (UA) Urine Ketones Urine Blood Urine Nitrite Ur Leukocyte Esterase Urine RBC Urine WBC Ur Squamous Epith Cells Calcium Oxalate Crystal Urine Bacteria COVID-19 (JERRELL) COVID-19 Clin Com Quality Stroke Does the patient have a stroke diagnosis?: No VTE Prior VTE?: No VTE Risk Level:: Medical - moderate - high VTE Device Contraindication: N/A - Device Ordered VTE Drug Contraindication: Treatment Not Indicated
--- NOTE | 2020-11-10 16:13 | MHC.CM.PN ---
CM MET WITH PT WHO REPORTS LIVING WITH HER 3YO BABY AND BEING INDEPENDENT WITH ALL CARE. PT WORKS FT AT [employer] [facility] [employer] AND HAS NO SERVICES AND NO DME. PT CONFIRMS HER PCP IS MERCEDES MANN. PT DOES NOT HAVE A HCP AND DECLINES TO COMPLETE ONE TODAY. CURRENT DC PLAN IS HOME WITH NO SERVICES GF TO TRANSPORT
[2020-11-10] MEDS: Phenazopyridine HCL 100 MG TABLET PO (21:11)
[2020-11-10] MEDS: Acetaminophen 325 MG TABLET 650 MG PO (21:12)
[2020-11-10] MEDS: HYDROmorphone HCl 1 MG/ML SYRINGE 0.5 MG IVPUSH (23:18)
[2020-11-11] VITALS (12 sets, daily range): BP systolic 101–145; BP diastolic 53–95; PULSE 61–75; RESP 16–20; TEMP 35.9–36.7; O2SAT 96–99; BMI 32.1
[2020-11-11] MEDS: Dextrose 5 % and 0.45 % NaCl 1,000 ML 100 ML IVCONT (00:25)
[2020-11-11] MEDS: cefTRIAXone sodium 1 GM in 0.9 % Sodium Chloride 50 ML IV (01:26)
[2020-11-11] MEDS: 0.9 % Sodium Chloride Flush 3 ML SYRINGE IVFLUSH (01:32)
[2020-11-11 07:03] LABS: Hematocrit 39.3 % (37-47); Hemoglobin 12.7 g/dl (12.0-16.0); Mean Corpuscular HGB Conc 32.3 g/dl (31.0-35.0); Mean Corpuscular Hemoglobin 30.6 pg (27.0-33.0); Mean Corpuscular Volume 94.7 fL (80-98); Mean Platelet Volume 11.3 fL (9.4-12.3); Platelet Count 259 X10*3/uL (160-400); Red Blood Count 4.15 X10*6/uL (4.20-5.50); Red Cell Distribution Width 12.5 % (11.0-16.0); White Blood Count 10.3 X10*3/uL (4.8-10.8)
[2020-11-11 07:23] LABS: Anion Gap 11 (12-20); Blood Urea Nitrogen 8 mg/dL (9-16); Calcium 8.1 mg/dL (8.4-10.2); Carbon Dioxide 26 mmol/L (22-29); Chloride 108 mmol/L (96-108); Estimated Glomerular Filt Rate > 60; Glucose Random 99 mg/dL (60-115); Potassium 3.8 mmol/L (3.3-5.1); Sodium 141 mmol/L (135-145)
[2020-11-11] MEDS: HYDROmorphone HCl 1 MG/ML SYRINGE 0.5 MG IVPUSH (12:30)
--- NOTE | 2020-11-11 13:09 | PM.UROPN ---
Subjective Subjective Date of Service: 11/11/20 Interval history: Persistent right flank pain Does not think stone has passed Has been treated with antibiotics Today negative Will proceed with right ureteroscopy laser lithotripsy stent placement Physical Exam Vital Signs: Vital Signs: Last Vital Signs Temp 97.8 F 11/11/20 11:37 Pulse 70 11/11/20 11:37 Resp 18 11/11/20 11:37 BP 118/76 11/11/20 11:37 Pulse Ox 98 11/11/20 11:37 Body Mass Index 32.1 Const: General: cooperative, healthy appearing, comfortable and no acute distress Orientation/consciousness: patient oriented x3 HENMT: Face and sinus: Yes normal facial exam Mouth: moist mucous membranes Neck: Neck: Yes normal visual inspection, Yes full ROM and Yes trachea midline Chest: Chest palpation & inspection: normal inspection of the chest Resp: Effort & Inspection: normal respiratory effort, able to speak in complete sentences and no respiratory distress GI: Inspection: Yes normal to inspection Back/Spine/Pelvis: Cervical Spine: normal cervical lordosis Thoracic/Lumbar Spine: thoracic and lumbar spine normal to inspection Skin: General skin exam: no rashes or lesions noted Neuro: General: patient oriented x3, gait normal, tone normal and moves all extremities Extrem: General: Yes normal to inspection and Yes capillary refill normal Urology Results Labs CBC & Chem 7: 11/11/20 05:43 11/11/20 05:43 Labs: Laboratory Results - last 24 hr 11/11/20 11/11/20 05:43 05:43 WBC 10.3 RBC 4.15 L Hgb 12.7 Hct 39.3 MCV 94.7 MCH 30.6 MCHC 32.3 RDW 12.5 Plt Count 259 MPV 11.3 Absolute Nucleated RBC 0.000 Nucleated RBC % (auto) 0.0 Sodium 141 Potassium 3.8 Chloride 108 Carbon Dioxide 26 Anion Gap 11 L BUN 8 L Creatinine 0.77 Estim Creat Clear Calc 104.0 Estimated GFR > 60 Random Glucose 99 D Calcium 8.1 L D Progress Note: A&P Assessment and plan (1) Hydronephrosis with renal calculous obstruction: Status: Acute (2) Horseshoe kidney: Status: Acute Assessment and Plan: Ureteroscopy We discussed the nature of the decision and reasonable alternatives for performing the above surgery. Interventions include chemical dissolution, ESWL, ureteroscopy with laser lithotripsy and stent placement, PCNL. Options such as medical therapy were discussed. The relative uncertainties and benefits related to each alternate procedure were adequately discussed. General surgical risks including, but not limited to, pain, bleeding, infection, myocardial infarction, pulmonary embolus, deep vein thrombosis and cerebrovascular accident which may result in further hospitalization were discussed. Full disclosure of the procedure as well as all major risks, benefits and complications were discussed including but not limited to damage to the urethra, bladder and kidney infection, damage to the ureter, stent migration or malposition, scarring to the renal pelvis, remnant stone fragments, subsequent stone passage with need for secondary procedures. The overall secondary procedure rate is approximately 10-15%. The success rate of the procedure was discussed. Success of the procedure in the short-term does not necessarily guarantee that long-term success will be maintained. Suitable follow up will need to be maintained. The patient showed understanding of discussion and wishes to proceed with - cystoscopy, retrograde, ureteroscopy, possible lithotripsy/stone basketing and stent on the right side Fall Risk Details Current Medications: Current Medications Generic Name Dose Route Start Last Admin Trade Name Freq PRN Reason Stop Dose Admin Acetaminophen 650 mg 11/10/20 02:07 11/10/20 21:12 Acetaminophen 325 Mg Tablet PO 650 mg Q6H PRN Administration Pain, Mild (Pain Scale 1-3) Amlodipine Besylate 5 mg 11/10/20 09:00 11/11/20 09:00 Amlodipine Besylate 5 Mg Tablet PO Not Given DAILY TONA Protocol Hydromorphone HCl 0.5 mg 11/10/20 12:30 11/11/20 12:30 Hydromorphone Hcl 1 Mg/Ml Syringe IVPUSH 0.5 mg Q4H PRN Administration Pain, Severe (Pain Scale 7-10) Protocol Hydroxyzine HCl 25 mg 11/10/20 06:14 11/10/20 06:24 Hydroxyzine Hcl 25 Mg Tablet PO 25 mg Q6H PRN Administration anxiety/restlessness Ceftriaxone Sodium 1 gm/ 50 mls @ 100 mls/hr 11/10/20 02:15 11/11/20 02:00 Sodium Chloride IV Infused Q24H TONA Infusion Dextrose/Sodium Chloride 1,000 mls @ 100 mls/hr 11/10/20 02:15 11/11/20 10:42 D51/2ns IVCONT Infused .Q10H TONA Infusion Lorazepam 0.5 mg 11/10/20 06:30 Lorazepam 0.5 Mg Tablet PO TID PRN anxiety Melatonin 6 mg 11/10/20 02:07 Melatonin 3 Mg Tablet PO BEDTIME PRN Insomnia Phenazopyridine HCl 100 mg 11/10/20 10:50 11/10/20 21:11 Phenazopyridine Hcl 100 Mg Tablet PO 11/12/20 10:50 100 mg TIDWM PRN Administration dysuria Sodium Chloride 3 ml 11/10/20 08:00 11/11/20 09:00 0.9 % Sodium Chloride Flush 3 Ml Syringe IVFLUSH Not Given QSHIFT TONA Time Spent With Patient Time: Total time spent is greater than 50% in coordination of care (as documented) at patient's floor/unit and/or counseling patient: Time with patient: less than 15 minutes Progress Note: Quality Stroke Does the patient have a stroke diagnosis?: No
--- NOTE | 2020-11-11 14:22 | PM.DS ---
DS: Providers Provider Date of Service: 11/11/20 Date of admission: 11/10/20 02:07 Primary care physician: Elier Olmstead MD Consults: 11/10/20 01:37 Consult to Urology Stat Consulting Provider: Adebayo Segura III Reason for consultation: infected kidney stone w/ hydro Has provider been notified: Yes 11/10/20 02:06 Consult to Urology Routine Consulting Provider: Jose Alfredo Addison Reason for consultation: renal stone; uti; hydronephrosis Attending physician on discharge: Leonard Tavarez Discharging clinician: Felecia Jimenez DS: Diagnosis Discharge Diagnosis (1) Hydronephrosis with renal calculous obstruction: Status: Resolved (2) Horseshoe kidney: DS: Summary Hospital Course Hospital Course: HP as per admitting provider 40-year-old female with a past medical history of hypertension, obesity, anxiety, recurrent renal calculi presented to the hospital with a chief complaint of right flank pain. Patient initially presented to the hospital earlier last night and was subsequently discharged home with the oral pain medications; after she went home patient continued to have symptoms and was worsening hence decided to come back to the ER for further evaluation. Patient complains of urinary frequency and burning; Denies any fevers Denies any chest pain palpitations lightheadedness or dizziness. Patient reported that he had prior history of recurrent kidney stones requiring stent placements, lithotripsy. Review of all other systems is negative except mentioned above ER course: Per ER team patient lab showed leukocytosis; urinalysis abnormal consistent with UTI; given ceftriaxone.? CT scan showed [id number] hydronephrosis on the right side with 5x4x3 stone in the distal right ureter; discussed with the on-call Urology who recommended admission to the medicine team for 24 hours of antibiotics and will plan for intervention after that . Renal calculi with hydronephrosis. Patient with history of horseshoe kidney and renal calculi in the past. Multiple urological procedures. Pain has been controlled during admission. She was seen and evaluated by urologist with recommendation for ureteroscopy and cystoscopy. Time Spent with Patient Time attestation: Total time spent providing and/or coordinating discharge services: Discharge coordination time: Greater than 30 minutes Quality: Stroke Does the patient have a stroke diagnosis?: No Physical Exam Vital Signs: Vital Signs: Last Vital Signs Temp 97.8 F 11/11/20 11:37 Pulse 70 11/11/20 11:37 Resp 18 11/11/20 11:37 BP 118/76 11/11/20 11:37 Pulse Ox 98 11/11/20 11:37 Body Mass Index 32.1 Appearing in no acute distress head is normocephalic atraumatic eyes pupils are PERRLA sclera is anicteric mouth throat mucous membranes are intact and moist neck is supple no lymphadenopathy, no JVD noted lung sounds are clear to auscultation heart regular rate rhythm, clear S1, S2 positive bowel sounds, abdomen is soft, nontender neuro patient is alert x3, no focal deficits DS: Data Data Completed and Pending Labs on day of discharge: Laboratory Results - last 24 hr 11/11/20 11/11/20 05:43 05:43 WBC 10.3 RBC 4.15 L Hgb 12.7 Hct 39.3 MCV 94.7 MCH 30.6 MCHC 32.3 RDW 12.5 Plt Count 259 MPV 11.3 Absolute Nucleated RBC 0.000 Nucleated RBC % (auto) 0.0 Sodium 141 Potassium 3.8 Chloride 108 Carbon Dioxide 26 Anion Gap 11 L BUN 8 L Creatinine 0.77 Estim Creat Clear Calc 104.0 Estimated GFR > 60 Random Glucose 99 D Calcium 8.1 L D Preliminary micro results at discharge 11/10/20 02:51 Blood Culture - Preliminary Blood - Venous No growth after 24 hours. 11/10/20 02:42 Blood Culture - Preliminary Blood - Venous No growth after 24 hours. Discharge Plan Discharge Anticipated Discharge Date/Time: 11/11/20 14:16 Patient Disposition: Home, Self-Care Discharge Diagnosis: Right renal calculi Right-sided hydronephrosis Referrals: Elier Olmstead MD [Primary Care Provider] - 1 Week Jose Alfredo Addison MD [Physician] - 2 days Discharge Medications: New cefuroxime axetil 500 mg tablet 500 mg PO BID Qty: 10 RF: 0 phenazopyridine [Pyridium] 100 mg tablet 100 mg PO TID PRN (Reason: spasm) 4 Days Qty: 12 RF: 0 tamsulosin 0.4 mg capsule 0.4 mg PO BEDTIME 14 Days Qty: 14 RF: 0 Continued amlodipine 5 mg tablet 5 mg PO DAILY 90 Days Qty: 90 RF: 1 lorazepam 0.5 mg tablet 0.5 mg PO TID PRN (Reason: anxiety) 30 Days Qty: 90 RF: 0 Discontinued prednisone 20 mg tablet 20 mg PO DAILY Qty: 3 RF: 0 No Action oxycodone 5 mg capsule 5 mg PO Q8H PRN (Reason: pain) 7 Days Qty: 20 RF: 0 Discharge Orders: Discharge Order (Routine); Ordered 11/11/20 Ordered By: Jose Alfredo Addison Diet: advance to usual diet Activity on Discharge: As tolerated Stand Alone Forms: Patient Portal Discharge page, Work/School Release Care Plan Goals: Resolution of urinary symptoms Health Concerns: Right renal calculi Right-sided hydronephrosis Plan of Treatment: Follow-up with his primary care provider as needed Take antibiotics as prescribed Assessment: see discharge summary Discharge Date/Time: 11/11/20 23:05
--- NOTE | 2020-11-11 14:27 | PM.IMPN ---
Progress Note: A&P Assessment and Plan: 40-year-old female with a past medical history of hypertension, obesity, anxiety, recurrent renal calculi presented to the hospital with a chief complaint of right flank pain. Right renal calculi/right-sided hydronephrosis scheduled for cystoscopy Pain control Supportive care UTI Continue ceftriaxone.? Follow cultures. DVT prophylaxis early ambulation Code status:? Full code DISPO possible dc today after procedure <Felecia Jimenez NP - Last Filed: 11/11/20 14:30> Subjective Subjective Date of Service: 11/11/20 <Felecia Jimenez NP - Last Filed: 11/11/20 14:30> 11/19/20 <Leonard Tavarez MD - Last Filed: 11/19/20 13:32> Review of Systems Follow up renal calculi minimal pain scheduled for cystoscopy <Felecia Jimenez NP - Last Filed: 11/11/20 14:30> Physical Exam Vital Signs: Vital Signs: Last Vital Signs Temp 97.8 F 11/11/20 11:37 Pulse 70 11/11/20 11:37 Resp 18 11/11/20 11:37 BP 118/76 11/11/20 11:37 Pulse Ox 98 11/11/20 11:37 Body Mass Index 32.1 <Felecia Jimenez NP - Last Filed: 11/11/20 14:30> Appearing in no acute distress lung sounds are clear to auscultation heart regular rate rhythm, clear S1, S2 positive bowel sounds, abdomen is soft, nontender neuro patient is alert x3, no focal deficits <Felecia Jimenez NP - Last Filed: 11/11/20 14:30> Objective Data Current Medications Generic Name Dose Route Start Last Admin Trade Name Freq PRN Reason Stop Dose Admin Acetaminophen 650 mg 11/10/20 02:07 11/10/20 21:12 Acetaminophen 325 Mg Tablet PO 650 mg Q6H PRN Administration Pain, Mild (Pain Scale 1-3) Amlodipine Besylate 5 mg 11/10/20 09:00 11/11/20 09:00 Amlodipine Besylate 5 Mg Tablet PO Not Given DAILY TONA Protocol Hydromorphone HCl 0.5 mg 11/10/20 12:30 11/11/20 12:30 Hydromorphone Hcl 1 Mg/Ml Syringe IVPUSH 0.5 mg Q4H PRN Administration Pain, Severe (Pain Scale 7-10) Protocol Hydroxyzine HCl 25 mg 11/10/20 06:14 11/10/20 06:24 Hydroxyzine Hcl 25 Mg Tablet PO 25 mg Q6H PRN Administration anxiety/restlessness Ceftriaxone Sodium 1 gm/ 50 mls @ 100 mls/hr 11/10/20 02:15 11/11/20 02:00 Sodium Chloride IV Infused Q24H TONA Infusion Dextrose/Sodium Chloride 1,000 mls @ 100 mls/hr 11/10/20 02:15 11/11/20 10:42 D51/2ns IVCONT Infused .Q10H TONA Infusion Lorazepam 0.5 mg 11/10/20 06:30 Lorazepam 0.5 Mg Tablet PO TID PRN anxiety Melatonin 6 mg 11/10/20 02:07 Melatonin 3 Mg Tablet PO BEDTIME PRN Insomnia Phenazopyridine HCl 100 mg 11/10/20 10:50 11/10/20 21:11 Phenazopyridine Hcl 100 Mg Tablet PO 11/12/20 10:50 100 mg TIDWM PRN Administration dysuria Sodium Chloride 3 ml 11/10/20 08:00 11/11/20 09:00 0.9 % Sodium Chloride Flush 3 Ml Syringe IVFLUSH Not Given QSHIFT TONA <Felecia Jimenez NP - Last Filed: 11/11/20 14:30> Labs CBC & Chem 7: : 11/11/20 05:43 11/11/20 05:43 <Felecia Jimenez NP - Last Filed: 11/11/20 14:30> Labs: Laboratory Results - last 24 hr 11/11/20 11/11/20 05:43 05:43 MCV 94.7 MCH 30.6 MCHC 32.3 RDW 12.5 Plt Count 259 MPV 11.3 Absolute Nucleated RBC 0.000 Nucleated RBC % (auto) 0.0 Anion Gap 11 L Estim Creat Clear Calc 104.0 Estimated GFR > 60 Random Glucose 99 D Calcium 8.1 L D <Felecia Jimenez NP - Last Filed: 11/11/20 14:30> Microbiology Microbiology Results: Microbiology 11/09/20 00:00 Urine clean catch - Urine cabrera top Urine Culture - Final No growth. 11/10/20 02:51 Blood - Venous Blood Culture - Preliminary No growth after 24 hours. 11/10/20 02:42 Blood - Venous Blood Culture - Preliminary No growth after 24 hours. <Felecia Jimenez NP - Last Filed: 11/11/20 14:30> Quality Stroke Does the patient have a stroke diagnosis?: No <Felecia Jimenez NP - Last Filed: 11/11/20 14:30> VTE Prior VTE?: No <Felecia Jimenez NP - Last Filed: 11/11/20 14:30> VTE Risk Level:: Medical - moderate - high <Felecia Jimenez NP - Last Filed: 11/11/20 14:30> VTE Device Contraindication: N/A - Device Ordered <Felecia Jimenez NP - Last Filed: 11/11/20 14:30> VTE Drug Contraindication: Treatment Not Indicated <Felecia Jimenez NP - Last Filed: 11/11/20 14:30>
--- NOTE | 2020-11-11 17:12 | HO.ANESPROP2 ---
[facility] Active Problems Active Problems: All Active Problems (Updated 11/11/20 @ 13:10 by Jose Alfredo Addison MD) Horseshoe kidney (Acute) Hydronephrosis with renal calculous obstruction (Acute) UTI (urinary tract infection) (Acute) Right ankle pain (Acute) Right wrist pain (Acute) Nephrolithiasis (Acute) Acute sinusitis (Acute) Anxiety (Acute) Obesity (BMI 30-39.9) (Acute) Benign essential hypertension (Acute) Past Medical History Medical History Anxiety Benign essential hypertension Gestational HTN Obesity (BMI 30-39.9) Functional capacity: independent ambulation Patient : No Family History Family History Father HIV (human immunodeficiency virus infection) Mother CVD (cardiovascular disease) Maternal Grandmother Breast cancer Diabetes Hypertension Maternal Grandfather Prostate cancer Paternal Grandmother CVD (cardiovascular disease) Paternal Grandfather Prostate cancer Sister In good health Son In good health Family history of problems with anesthesia: No Surgical History Surgical History Back pain with history of spinal surgery H/O wrist surgery History of extraction of renal calculus History of Problems with Anesthesia: No Social History Social History Household Members: Spouse Housing: Apartment Are you a primary care program resident to a significant other at home: No Do you presently have visiting nurse or other home services: No Alcohol intake: unknown Patient Tobacco Use Status: Never used Tobacco Use of substances other than those prescribed or required for medical reasons: No Currently Displaying Signs/Symptoms of Drug Intoxication Withdrawal: No Have you been hit, kicked, punched, or otherwise hurt by someone within the past year? If so, by whom?: No Do you feel safe in your current relationship?: Yes Is there a partner from a previous relationship who is making you feel unsafe now?: No Are you made to feel afraid or neglected: No Are you DNR?: No Advance Directives: No Advance Directives Information Provided: No Do you have thoughts of harming others: None Do you have a plan to hurt others: No Plan Recently lost weight without trying: No How much weight loss: Not applicable Eating poorly because of decreased appetite: No Nutrition screen score: 0 Nutrition Risks: No Nutritional Risk Patient : No FDLMP: 10/22/20 : No Poor oral hygiene: No service: Yes (ACTIVE) Current occupational status: employed Meds Allergies Allergy/AdvReac Type Severity Reaction Status Date / Time celecoxib [From Celebrex] Allergy Intermediate ITCHING Verified 11/09/20 01:39 Effexor Allergy Unknown itching Verified 11/09/20 01:39 metronidazole Allergy Unknown rash Verified 11/09/20 01:39 sertraline [Zoloft] Allergy Unknown itching Verified 11/09/20 01:39 Sulfa (Sulfonamide Allergy Unknown unknown, Verified 11/09/20 01:39 Antibiotics) yeast infection sulfamethoxazole Allergy Unknown ITCHING Verified 11/09/20 01:39 [From BACTRIM] trimethoprim [From BACTRIM] Allergy Unknown ITCHING Verified 11/09/20 01:39 tramadol AdvReac Intermediate Nausea Verified 11/09/20 01:39 alprazolam [From XANAX] AdvReac Mild CONFUSION Verified 11/09/20 01:39 Active Medications: Current Medications Generic Name Dose Route Start Last Admin Trade Name Freq PRN Reason Stop Dose Admin Acetaminophen 650 mg 11/10/20 02:07 11/10/20 21:12 Acetaminophen 325 Mg Tablet PO 650 mg Q6H PRN Administration Pain, Mild (Pain Scale 1-3) Amlodipine Besylate 5 mg 11/10/20 09:00 11/11/20 09:00 Amlodipine Besylate 5 Mg Tablet PO Not Given DAILY [facility] Protocol Hydromorphone HCl 0.5 mg 11/10/20 12:30 11/11/20 12:30 Hydromorphone Hcl 1 Mg/Ml Syringe IVPUSH 0.5 mg Q4H PRN Administration Pain, Severe (Pain Scale 7-10) Protocol Hydroxyzine HCl 25 mg 11/10/20 06:14 11/10/20 06:24 Hydroxyzine Hcl 25 Mg Tablet PO 25 mg Q6H PRN Administration anxiety/restlessness Ceftriaxone Sodium 1 gm/ 50 mls @ 100 mls/hr 11/10/20 02:15 11/11/20 02:00 Sodium Chloride IV Infused Q24H TONA Infusion Dextrose/Sodium Chloride 1,000 mls @ 100 mls/hr 11/10/20 02:15 11/11/20 10:42 D51/2ns IVCONT Infused .Q10H [facility]ONA Infusion Lorazepam 0.5 mg 11/10/20 06:30 Lorazepam 0.5 Mg Tablet PO TID PRN anxiety Melatonin 6 mg 11/10/20 02:07 Melatonin 3 Mg Tablet PO BEDTIME PRN Insomnia Phenazopyridine HCl 100 mg 11/10/20 10:50 11/10/20 21:11 Phenazopyridine Hcl 100 Mg Tablet PO 11/12/20 10:50 100 mg TIDWM PRN Administration dysuria Sodium Chloride 3 ml 11/10/20 08:00 11/11/20 16:58 0.9 % Sodium Chloride Flush 3 Ml Syringe IVFLUSH Not Given QSHIFT [facility] Exam Exam Date and Time: November 11, 2020 1712 Height,Weight and Vital Signs: Height 5 ft 5 in Weight 87.543 kg Last Vital Signs Temp 97.3 F 11/11/20 15:22 Pulse 65 11/11/20 15:22 Resp 20 11/11/20 15:22 BP 134/85 11/11/20 15:22 Pulse Ox 99 11/11/20 15:22 Pertinent Lab Results Pertinent Lab Results: Laboratory Tests 11/09/20 11/09/20 11/09/20 22:52 22:52 23:45 WBC 16.6 H RBC 4.34 Hgb 13.4 Hct 40.5 MCV 93.3 MCH 30.9 MCHC 33.1 RDW 12.2 Plt Count 288 MPV 10.8 Immature Gran % (Auto) 0.3 Neut % (Auto) 70.7 Lymph % (Auto) 18.5 L [place] % (Auto) 8.3 Eos % (Auto) 1.8 Baso % (Auto) 0.4 Lymph # (Auto) 3.1 [place] # (Auto) 1.4 H Eos # (Auto) 0.3 Baso # (Auto) 0.1 Abs Immat Gran (auto) 0.05 H Absolute Neuts (auto) 11.8 H Absolute Nucleated RBC 0.000 Nucleated RBC % (auto) 0.0 Sodium 142 Potassium 3.7 Chloride 106 Carbon Dioxide 30 H Anion Gap 10 L BUN 11 Creatinine 1.03 Estim Creat Clear Calc 77.7 Estimated GFR 59 Random Glucose 122 H Lactic Acid Lactic Acid Fup @ 2Hr Lactic Acid Fup @ 4Hr Calcium 9.2 Urine Color YELLOW Urine Appearance HAZY Urine pH 6.0 Ur Specific [place] 1.020 Urine Protein NEG Urine Glucose (UA) NEG Urine Ketones NEG Urine Blood 1+ H Urine Nitrite NEG Ur Leukocyte Esterase 1+ H Urine RBC 1-4 Urine WBC 10-14 H Ur Squamous Epith Cells 2+ Calcium Oxalate Crystal 1+ Urine Bacteria 4+ COVID-19 (JERRELL) COVID-19 Clin Com 11/10/20 11/10/20 11/10/20 02:36 02:42 02:42 WBC RBC Hgb Hct MCV MCH MCHC RDW Plt Count MPV Immature Gran % (Auto) Neut % (Auto) Lymph % (Auto) [place] % (Auto) Eos % (Auto) Baso % (Auto) Lymph # (Auto) [place] # (Auto) Eos # (Auto) Baso # (Auto) Abs Immat Gran (auto) Absolute Neuts (auto) Absolute Nucleated RBC Nucleated RBC % (auto) Sodium 139 Potassium 4.2 Chloride 105 Carbon Dioxide 26 Anion Gap 12 BUN 9 Creatinine 1.14 Estim Creat Clear Calc 70.2 Estimated GFR 52 Random Glucose 153 H Lactic Acid 2.3 H* Lactic Acid Fup @ 2Hr Lactic Acid Fup @ 4Hr Calcium 9.0 Urine Color Urine Appearance Urine pH Ur Specific [place] Urine Protein Urine Glucose (UA) Urine Ketones Urine Blood Urine Nitrite Ur Leukocyte Esterase Urine RBC Urine WBC Ur Squamous Epith Cells Calcium Oxalate Crystal Urine Bacteria COVID-19 (JERRELL) Negative COVID-19 Clin Com See Note 11/10/20 11/10/20 11/10/20 02:43 05:23 07:34 WBC 16.1 H RBC 4.64 Hgb 14.2 Hct 43.8 MCV 94.4 MCH 30.6 MCHC 32.4 RDW 12.4 Plt Count 252 MPV 11.2 Immature Gran % (Auto) 0.6 H Neut % (Auto) 87.9 H Lymph % (Auto) 7.9 L [place] % (Auto) 3.3 Eos % (Auto) 0.1 Baso % (Auto) 0.2 Lymph # (Auto) 1.3 [place] # (Auto) 0.5 Eos # (Auto) 0.0 Baso # (Auto) 0.0 Abs Immat Gran (auto) 0.09 H Absolute Neuts (auto) 14.1 H Absolute Nucleated RBC 0.000 Nucleated RBC % (auto) 0.0 Sodium Potassium Chloride Carbon Dioxide Anion Gap BUN Creatinine Estim Creat Clear Calc Estimated GFR Random Glucose Lactic Acid Lactic Acid Fup @ 2Hr 2.6 H* Lactic Acid Fup @ 4Hr 2.1 H* Calcium Urine Color Urine Appearance Urine pH Ur Specific [place] Urine Protein Urine Glucose (UA) Urine Ketones Urine Blood Urine Nitrite Ur Leukocyte Esterase Urine RBC Urine WBC Ur Squamous Epith Cells Calcium Oxalate Crystal Urine Bacteria COVID-19 (JERRELL) COVID-19 [employer] 11/11/20 11/11/20 05:43 05:43 WBC 10.3 RBC 4.15 L Hgb 12.7 Hct 39.3 MCV 94.7 MCH 30.6 MCHC 32.3 RDW 12.5 Plt Count 259 MPV 11.3 Immature Gran % (Auto) Neut % (Auto) Lymph % (Auto) [place] % (Auto) Eos % (Auto) Baso % (Auto) Lymph # (Auto) [place] # (Auto) Eos # (Auto) Baso # (Auto) Abs Immat Gran (auto) Absolute Neuts (auto) Absolute Nucleated RBC 0.000 Nucleated RBC % (auto) 0.0 Sodium 141 Potassium 3.8 Chloride 108 Carbon Dioxide 26 Anion Gap 11 L BUN 8 L Creatinine 0.77 Estim Creat Clear Calc 104.0 Estimated GFR > 60 Random Glucose 99 D Lactic Acid Lactic Acid Fup @ 2Hr Lactic Acid Fup @ 4Hr Calcium 8.1 L D Urine Color Urine Appearance Urine pH Ur Specific [place] Urine Protein Urine Glucose (UA) Urine Ketones Urine Blood Urine Nitrite Ur Leukocyte Esterase Urine RBC Urine WBC Ur Squamous Epith Cells Calcium Oxalate Crystal Urine Bacteria COVID-19 (JERRELL) COVID-19 [facility] Com Assessment and Plan Final Anesthetic Review Family History of Problems with Anesthesia: No History of Problems with Anesthesia: No
--- NOTE | 2020-11-11 20:30 | MHC.SHP ---
Pre-Procedural Eval Section A Date of Service: 11/11/20 Section B Chief Complaint: UTI Details of Present Illness: Distal right ureteric stone Relevant Family History (Specify if Yes): No Relevant Social History: None Present Medications: see Short Stay Collaborative assessment Medical History: Significant History History of Previous Operations: No relevant previous surgery Allergies: Allergies Allergy/AdvReac Type Severity Reaction Status Date / Time celecoxib [From Celebrex] Allergy Intermediate ITCHING Verified 11/09/20 01:39 Effexor Allergy Unknown itching Verified 11/09/20 01:39 metronidazole Allergy Unknown rash Verified 11/09/20 01:39 sertraline [Zoloft] Allergy Unknown itching Verified 11/09/20 01:39 Sulfa (Sulfonamide Allergy Unknown unknown, Verified 11/09/20 01:39 Antibiotics) yeast infection sulfamethoxazole Allergy Unknown ITCHING Verified 11/09/20 01:39 [From BACTRIM] trimethoprim [From BACTRIM] Allergy Unknown ITCHING Verified 11/09/20 01:39 tramadol AdvReac Intermediate Nausea Verified 11/09/20 01:39 alprazolam [From XANAX] AdvReac Mild CONFUSION Verified 11/09/20 01:39 Review of Systems Sugical H&P ROS: Negative: Constitution, Cardiovascular, Respiratory, Neurological, Psychiatric, Hem-Onc, Allergic/Immunologic, Gastrointestinal, Genitourinary, Musculoskeletal, Integumentary, Endocrine and Eyes/Ears/Nose/Throat Exam Surgical H&P Exam: Normal: HEENT, Normal: Heart, Normal: Lungs, Normal: Extremities, Normal: Abdomen, Normal: Skin and Normal: Neurological Plan Diagnosis/Plan: Unchanged (Cystoscopy, right retrograde, right ureteroscopy with laser lithotripsy and stent placement) I have reviewed the history and physical and performed a pertinent physical examination on my patient. No changes have occurred unless specified.
--- NOTE | 2020-11-11 21:24 | W.PM.OPN ---
Operative Note Operative Note Date of Service: 11/11/20 Narrative: PreOperative Diagnosis: Right distal ureteric stone Post Operative Diagnosis: Right distal ureteric stone Procedure: - cystoscopy, retrograde - dilatation of ureteric orifice under fluoroscopy - right ureteroscopy, laser lithotripsy, stone basketing - right stent placement Surgeon: Dr Jose Alfredo Addison Anesthesia: General Indications for procedure: 40-year-old female known stone former with 6 mm distal right ureteric stone and hydroureteronephrosis. Recommend ureteroscopy due to stone location Procedure: After informed consent was verified patient was brought to the operating placed in supine position. Anesthesia was administered per protocol. Patient was placed in modified dorsal lithotomy position and prepped and draped in a sterile fashion. Safety pause time-out and side of surgery confirmed. Antibiotics confirmed. Cystoscopy was performed. The right ureteric orifice was seen to be inflamed. Retrograde examination was performed. Filling defect could be seen in the distal portion of the ureter. Sensor guidewire was placed. Freistatt dilator was used to dilate the ureter under fluoroscopy. A rigid ureteroscope was placed alongside the Sensor guidewire. The stone was encountered in the distal portion of the ureter. Using a laser fiber the stone was broken into small portions. Stone was partially embedded into the sidewall. Using a 0 to tip basket the fragments imbedded in the wall of the Uro able to be removed and sent for analysis. Decision was made for placement of stent. Six [place] by 24 cm stent was placed without difficulty. Good coil seen within renal pelvis in the bladder. Bladder was emptied. She was transferred in stable condition to the recovery area. Pathology: Drains: Stone 6 Turk[place] by 24 cm stent
[2020-11-11] MEDS: oxyCODONE HCl Immed Release 5 MG TABLET PO (22:59)
[2020-11-15 23:06] LABS: Stone Source RT URETER
== END 2020-11-11 23:05 | disposition home or self-care (01) | DRG 446 ==
LOC: HO.ED 11-10 01:43 → HO.EDOVER 11-10 02:14 → HO.IMC 11-10 07:48
PROVIDERS: Physician Assistant; Urology; Admitting Provider Hospitalist; Emergency Provider Emergency Medicine; PCP Internal Medicine; Visit Provider Nurse Practitioner Acute Care
DX: N13.6 Pyonephrosis (principal); F41.9 Anxiety disorder, unspecified; Z20.822 Contact with and (suspected) exposure to COVID-19; Z88.5 Allergy status to narcotic agent; Z88.2 Allergy status to sulfonamides; Z87.442 Personal history of urinary calculi; Q63.1 Lobulated, fused and horseshoe kidney; Z88.6 Allergy status to analgesic agent; Z79.899 Other long term (current) drug therapy
CPT/HCPCS: 36415; 80048; 81001; 82365; 83605; 85025; 85027; 87040; 87086; 87635; 88300; 96361; 96365; 96375; 99285; 99291; C1769; C2617; J0690; J0696; J1100; J1170; J2250; J2270; J2405; J3010; Q9967

== ENCOUNTER → 2020-11-21 15:05 | Outpatient (BNVA) | payer OTHER, SELFPAY | PROVIDERS: PCP Internal Medicine; Visit Provider Urology | DX: N20.0 Calculus of kidney (principal) | CPT/HCPCS: 52310 ==

== ENCOUNTER 2020-12-30 07:57 | Outpatient (REF) | payer OTHER, SELFPAY ==
--- NOTE | ~2020-12-30 | XR_ITS ---
EXAMINATION: XR LUMBOSACRAL SPINE CLINICAL INFORMATION: Low back pain COMPARISON: Previous x-ray December 2015 and lumbar spine February 2018 TECHNIQUE: Three views of the lumbosacral spine. FINDINGS: Bone alignment is normal. No fracture or dislocation is seen. There is disc space narrowing at L5-S1. Disc spaces are otherwise normal. Paraspinal soft tissues are normal. XR/XR lumbar spine 2-3V IMPRESSION: Disc space narrowing at L5-S1.
== END 2020-12-30 07:58 | disposition home or self-care (01) ==
LOC: HO.XRAY 07:57
PROVIDERS: PCP Internal Medicine; Visit Provider Physician Assistant
DX: M54.50 Low back pain, unspecified (principal)
CPT/HCPCS: 72100

== ENCOUNTER 2021-01-06 15:30 | Outpatient (REF) | payer OTHER, SELFPAY ==
--- NOTE | ~2021-01-06 | US_ITS ---
EXAMINATION: US RETROPERITONEAL LIMITED (RENAL ONLY) CLINICAL INFORMATION: Calculus of kidney. COMPARISON: CT abdomen and pelvis 11/09/2020. Renal ultrasound 07/10/2020 and 06/09/2020. X-ray abdomen KUB 06/25/2020. TECHNIQUE: Real-time imaging of the kidneys. FINDINGS: Redemonstration of known horseshoe kidney. RIGHT KIDNEY: 11.5 x 4.5 x 4.5 cm (SAG x AP x TRV). The kidney is normal in size, contour, and echogenicity. Renal cortical thickness is normal. No focal parenchymal lesions or hydronephrosis. There is a 0.3 cm nonobstructing stone in the mid pole. LEFT KIDNEY: 12.2 x 5.2 x 4.4 cm (SAG x AP x TRV). The kidney is normal in size, contour, and echogenicity. Renal cortical thickness is normal. No calculi or focal parenchymal lesions. No hydronephrosis. US/US renal BI IMPRESSION: Horseshoe kidneys. Nonobstructive 0.3 cm calculus in the interpolar region of the right kidney.
== END 2021-01-06 15:31 | disposition home or self-care (01) ==
LOC: HO.US 15:30
PROVIDERS: PCP Internal Medicine; Visit Provider Urology
DX: N20.0 Calculus of kidney (principal)
CPT/HCPCS: 76775

== ENCOUNTER 2021-01-07 08:04 | Outpatient (REF) | payer OTHER, SELFPAY ==
--- NOTE | ~2021-01-07 | MR_ITS ---
EXAMINATION: MR LUMBAR SPINE WITHOUT AND WITH CONTRAST CLINICAL INFORMATION: The patient states new lower back pain down left buttock. COMPARISON: Plain films of the lumbar spine 12/30/2020. MRI scan of the lumbar spine 02/23/2018. TECHNIQUE: MRI of the lumbar spine was obtained using routine sequences with and without contrast. Intravenous contrast: Gadavist9 mL FINDINGS: VERTEBRAL BODIES AND PARASPINAL STRUCTURES: There is a mild retrolisthesis of L5 on S1. There is narrowing of intervertebral disc height with loss of signal at this disc level, demonstrated on prior imaging. There are mild degenerative endplate contour changes with mixed edematous and fatty endplate signal. There is no significant endplate enhancement following intravenous contrast administration. Vertebral body heights are maintained and no fractures are demonstrated. Overall, marrow signal is homogenous and no other osseous enhancement is demonstrated. The study redemonstrates the horseshoe kidney. There is a partially visualized left adnexal cyst. CONUS MEDULLARIS AND CAUDA EQUINA: Normal, terminating at the level of L1. The lower thoracic spinal cord appears normal. There is no abnormal intramedullary enhancement. The cauda equina nerve roots and filum terminale appear normal. SPINAL LEVELS: L1-L2: The facet joints appear normal bilaterally. Disc contour is normal. There is no central stenosis or foraminal narrowing. L2-L3: The facet joints appear normal bilaterally. Disc contour is normal. There is no central stenosis or foraminal narrowing. L3-L4: The facet joints appear normal bilaterally. Disc contour is normal. There is no central stenosis or foraminal narrowing. L4-L5: There is mild bilateral facet arthropathy. Disc contour is normal. There is no central stenosis or foraminal narrowing. L5-S1: The study demonstrates sequelae of a left-sided hemilaminectomy. There is a posterior broad-based disc protrusion extending into the inferior neural foramina bilaterally, similar compared to prior imaging. A small extruded component is noted behind the body of L5 centrally and toward the left, less prominent compared to prior imaging. There is mild impingement on the exiting L5 nerve roots inferiorly. There is impingement on the traversing left S1 nerve root, demonstrated on prior imaging. There is no abnormal epidural enhancement. There is no central stenosis. MR/MR lumbar spine wo/w con IMPRESSION: 1. The study redemonstrates sequelae of an L5-S1 left-sided hemilaminectomy. There is no abnormal epidural enhancement. There is a small left-sided disc protrusion/extrusion with impingement on the traversing left S1 nerve root, less prominent compared to prior imaging. There are inferior foraminal disc protrusions bilaterally with impingement on the exiting L5 nerve roots, unchanged. There is no central stenosis. 2. The study redemonstrates the horseshoe kidney. There is a incompletely visualized left adnexal cyst.
== END 2021-01-07 08:05 | disposition home or self-care (01) ==
LOC: HO.MRI 08:04
PROVIDERS: Visit Provider Physician Assistant
DX: M51.27 Other intervertebral disc displacement, lumbosacral region (principal)
CPT/HCPCS: 72158; A9585

== ENCOUNTER → 2021-01-09 09:25 | Outpatient (BNVA) | payer OTHER, SELFPAY | PROVIDERS: Visit Provider Urology ==

== ENCOUNTER 2021-01-16 12:01 | Outpatient (REF) | payer OTHER, SELFPAY | END 2021-01-16 12:02 | disposition home or self-care (01) | LOC: HO.LAB 12:01 | PROVIDERS: Visit Provider Nurse Practitioner Family | DX: Z20.822 Contact with and (suspected) exposure to COVID-19 (principal); R05.9 Cough, unspecified | CPT/HCPCS: U0003; U0005 ==

== ENCOUNTER 2021-03-24 09:41 | Outpatient (REF) | payer OTHER, SELFPAY ==
[2021-03-24 09:57] LABS: MANUAL DIFF FLAG NO
[2021-03-24 10:33] LABS: Basophils Absolute Auto 0.1 X10*3/uL (0.0-0.2); Basophils Percent Auto 0.6 % (0-2); Eosinophils Absolute Auto 0.1 X10*3/uL (0.0-0.4); Eosinophils Percent Auto 1.8 % (0-4); Hematocrit 39.2 % (37.0-47.0); Hemoglobin 12.5 g/dl (12.0-16.0); Imm Gran Abs Auto 0.02 X10*3/uL (0.00-0.03); Imm Gran Pct Auto 0.3 % (0.0-0.4); Lymphocytes Absolute Auto 1.9 X10*3/uL (1.2-4.9); Lymphocytes Percent Auto 24.3 % (20-40); Mean Corpuscular HGB Conc 31.9 g/dl (31.0-35.0); Mean Corpuscular Hemoglobin 29.9 pg (27.0-33.0); Mean Corpuscular Volume 93.8 fL (80.0-98.0); Mean Platelet Volume 11.2 fL (9.4-12.3); Monocytes Absolute Auto 0.7 X10*3/uL (0.1-1.2); Monocytes Percent Auto 8.7 % (2-11); Neutrophils Percent Auto 64.3 % (45-73); Platelet Count 319 X10*3/uL (160-400); Red Blood Count 4.18 X10*6/uL (4.20-5.50); Red Cell Distribution Width 12.4 % (11.0-16.0); White Blood Count 7.8 X10*3/uL (4.8-10.8)
[2021-03-24 11:05] LABS: Alanine Aminotransferase 20 U/L (0-31); Albumin Level 4.2 g/dL (3.5-5.0); Alkaline Phosphatase 53 U/L (39-117); Anion Gap 11 (12-20); Aspartate Amino Transferase 22 U/L (5-31); Bilirubin Total 0.5 mg/dL (0.0-1.0); Blood Urea Nitrogen 13 mg/dL (9-16); Calcium 8.9 mg/dL (8.4-10.2); Carbon Dioxide 28 mmol/L (22-29); Chloride 105 mmol/L (96-108); Cholesterol 131 mg/dL; Estimated Glomerular Filt Rate > 60; Glucose Fasting 97 mg/dL (60-99); HDL Cholesterol 42 mg/dL; LDL Cholesterol Calculated 78 mg/dl; Potassium 4.1 mmol/L (3.3-5.1); Sodium 140 mmol/L (135-145); Triglycerides 55 mg/dL
[2021-03-24 11:18] LABS: TSH reflex Free T4 0.98 uIU/mL (0.32-4.0)
[2021-03-24 11:35] LABS: Vitamin B12 618 pg/mL (200-900)
[2021-03-28 14:41] LABS: Vitamin D 25-OH, D2 <4 ng/mL; Vitamin D 25-OH, D3 20 ng/mL; Vitamin D 25-OH, Total 20 ng/mL (30-100)
== END 2021-03-24 09:42 | disposition home or self-care (01) ==
LOC: HO.LAB 09:41
PROVIDERS: PCP Internal Medicine; Visit Provider Nurse Practitioner Acute Care
DX: N63.10 Unspecified lump in the right breast, unspecified quadrant (principal)
CPT/HCPCS: 36415; 80053; 80061; 82306; 82607; 82746; 84443; 85025

== ENCOUNTER 2021-03-27 13:55 | Outpatient (REF) | payer OTHER, SELFPAY ==
--- NOTE | ~2021-03-27 | MM_ITS ---
EXAMINATION: MM DIAGNOSTIC DIGITAL BREAST TOMOSYNTHESIS, BILATERAL US DIAGNOSTIC ULTRASOUND BREAST, RIGHT CLINICAL INFORMATION: 40-year-old with recent palpable nodularity upper outer right breast near axilla. The lifetime risk of breast cancer based on the Tyrer-Cuzick Model is 19%. COMPARISON: Mammography: 09/27/2018, 09/22/2018, 07/01/2016 TECHNIQUE: Digital breast tomosynthesis is performed in both the craniocaudal and mediolateral oblique views along with computer-aided detection (CAD). Synthesized 2D images are generated from the tomosynthesis. Additional exaggerated right CC view is provided. Ultrasound right breast is targeted to the area of clinical concern upper right breast close to axilla. Patient is able to point to the area of concern at time of imaging. Imaging performed with patient semiupright. Grayscale imaging and color Doppler are performed without and with harmonics. FINDINGS: The breasts are heterogeneously dense, which may obscure small masses (ACR BI-RADS breast composition Category c). Fibronodular parenchymal pattern is similar to prior studies. There is no interval mass or architectural abnormality or developing density. Small cyst upper left breast noted on prior imaging 2018 is decreased in size. There are no abnormal calcifications. Bilateral nipple piercings are present. The bilateral axillary nodes appear stable. There are some left king calcifications or tattoo pigment again noted. Skin contours are smooth. Ultrasound demonstrates no cystic or solid mass or architectural abnormality. No focal duct ectasia. No intradermal lesion. No ultrasound or mammographic correlate for patient's symptoms. Results are discussed with the patient at time of visit. Patient should be managed based on the clinical impression. If clinically indicated, further evaluation may be considered with surgical consult. Decision to proceed with biopsy should be based on clinical grounds and degree of clinical concern. MM/MM tomosynthesis diagnostic BI IMPRESSION: 1. No mammographic evidence of malignancy. 2. Unremarkable targeted right breast ultrasound. ASSESSMENT: BI-RADS 2: Benign RECOMMENDATION: 1. Patient should be managed based on the clinical impression. If clinically indicated, further evaluation may be considered with surgical consult. Decision to proceed with biopsy should be based on clinical grounds and degree of clinical concern. 2. Otherwise, routine annual screening mammography. This patient's information was entered into a reminder system with a target due date for their next mammogram.
== END 2021-03-27 13:56 | disposition home or self-care (01) ==
LOC: HO.MAMMO 13:55
PROVIDERS: PCP Internal Medicine; Visit Provider Nurse Practitioner Acute Care
DX: N63.11 Unspecified lump in the right breast, upper outer quadrant (principal)
CPT/HCPCS: 76642; 77062; 77066

== ENCOUNTER 2021-04-17 23:31 | Emergency (ER) | payer OTHER, SELFPAY ==
--- NOTE | ~2021-04-17 | XR_ITS ---
EXAMINATION: XR CHEST CLINICAL INFORMATION: Chest pain COMPARISON: 02/06/2021 TECHNIQUE: Frontal view of the chest was obtained. FINDINGS: The lungs are clear with no focal consolidation. No evidence of pneumothorax, pulmonary edema, or pleural effusions. The cardiomediastinal silhouette is unremarkable. No acute osseous findings. XR/XR chest 1V IMPRESSION: No acute cardiopulmonary findings.
--- NOTE | 2021-04-17 23:51 | ECG_ITS ---
Test Reason : CP Blood Pressure : / mmHG Vent. Rate : 077 BPM Atrial Rate : 077 BPM P-R Int : 156 ms QRS Dur : 082 ms QT Int : 362 ms P-R-T Axes : 059 043 033 degrees QTc Int : 409 ms Normal sinus rhythm Normal ECG When compared with ECG of 10-OCT-2020 07:35, No significant change was found Referred By: Generic ED Physician Electronically Signed By:Ronni Glover
[2021-04-17 23:52] VITALS: BP 129/74; PULSE 81; RESP 16; TEMP 36.8; O2SAT 98; BMI 33.9
[2021-04-18 00:07] LABS: MANUAL DIFF FLAG NO
[2021-04-18 00:08] LABS: Basophils Absolute Auto 0.1 X10*3/uL (0.0-0.2); Basophils Percent Auto 0.7 % (0-2); Eosinophils Absolute Auto 0.3 X10*3/uL (0.0-0.4); Eosinophils Percent Auto 2.9 % (0-4); Hematocrit 41.1 % (37.0-47.0); Hemoglobin 13.2 g/dl (12.0-16.0); Imm Gran Abs Auto 0.02 X10*3/uL (0.00-0.03); Imm Gran Pct Auto 0.2 % (0.0-0.4); Lymphocytes Absolute Auto 3.4 X10*3/uL (1.2-4.9); Lymphocytes Percent Auto 32.4 % (20-40); Mean Corpuscular HGB Conc 32.1 g/dl (31.0-35.0); Mean Corpuscular Hemoglobin 29.9 pg (27.0-33.0); Mean Platelet Volume 10.6 fL (9.4-12.3); Monocytes Absolute Auto 0.8 X10*3/uL (0.1-1.2); Monocytes Percent Auto 7.4 % (2-11); Neutrophils Absolute Auto 5.9 x10*3/uL (2.0-8.3); Neutrophils Percent Auto 56.4 % (45-73); Platelet Count 343 X10*3/uL (160-400); Red Blood Count 4.42 X10*6/uL (4.20-5.50); Red Cell Distribution Width 12.6 % (11.0-16.0); White Blood Count 10.4 X10*3/uL (4.8-10.8)
[2021-04-18 00:19] LABS: Anion Gap 11 (12-20); Blood Urea Nitrogen 9 mg/dL (9-16); Calcium 9.2 mg/dL (8.4-10.2); Carbon Dioxide 28 mmol/L (22-29); Chloride 105 mmol/L (96-108); Creatinine Clr Calc Pharmacy 74.8; Estimated Glomerular Filt Rate 55; Glucose Random 138 mg/dL (60-115); Potassium 3.9 mmol/L (3.3-5.1); Sodium 140 mmol/L (135-145)
[2021-04-18 00:23] LABS: D Dimer High Sensitivity < 150 NG/ML
[2021-04-18 00:25] LABS: Troponin-I High Sensitivity < 3.5 ng/L (<3.5-17.0)
== END 2021-04-18 07:53 | disposition left against medical advice (07) ==
PROVIDERS: Emergency Provider Emergency Medicine; PCP Internal Medicine
DX: R07.9 Chest pain, unspecified (principal); R42 Dizziness and giddiness; F41.9 Anxiety disorder, unspecified; I10 Essential (primary) hypertension; Z79.899 Other long term (current) drug therapy
CPT/HCPCS: 36415; 71045; 80048; 84484; 85025; 85379; 93005; 99283

== ENCOUNTER 2021-05-11 18:10 | Outpatient (REF) | payer OTHER, SELFPAY | END 2021-05-11 18:11 | disposition home or self-care (01) | LOC: HO.LNP 18:10 | PROVIDERS: Visit Provider Internal Medicine | DX: Z12.4 Encounter for screening for malignant neoplasm of cervix (principal) | CPT/HCPCS: 88142 ==

== ENCOUNTER 2021-05-22 14:38 | Outpatient (REF) | payer OTHER, SELFPAY ==
--- NOTE | ~2021-05-22 | CT_ITS ---
EXAMINATION: CT ABDOMEN AND PELVIS WITHOUT CONTRAST CLINICAL INFORMATION: Kidney stone COMPARISON: Previous renal ultrasound January [address] of the abdomen and pelvis November 2020 TECHNIQUE: Multidetector volumetric imaging was performed from the superior aspect of the liver through the pubic symphysis. Sagittal and coronal reformatted images were obtained on the technologist's workstation. This CT examination was performed using dose optimization techniques as appropriate, variously including the following: *Automated exposure control *Adjustment of mA and/or kV according to patient size (this includes techniques or standardized protocols for targeted exams where dose is matched to indication/reason for exam; i.e. extremities or head) *Use of iterative reconstruction technique DLP: 560 mGy-cm FINDINGS: LUNG BASES: The visualized lung bases are unremarkable. LIVER, GALLBLADDER, AND BILIARY TREE: The liver is normal in size, shape, and attenuation. No focal hepatic lesion or biliary ductal dilatation is present. The gallbladder is unremarkable with no evidence of radiopaque gallstones, gallbladder wall thickening, or obvious pericholecystic inflammatory changes. PANCREAS: Unremarkable. SPLEEN: Unremarkable. ADRENAL GLANDS: Unremarkable. KIDNEYS AND URETERS: There is a horseshoe kidney. There is a 3 mm stone in the midpole on the right and question tiny 1 mm stone more inferiorly on the right. No hydronephrosis, ureteral dilatation or ureteral stone is seen. BLADDER: Not optimally distended. GASTROINTESTINAL TRACT: The small and large bowel are unremarkable. The appendix is unremarkable. ABDOMINAL WALL: No significant hernia is appreciated. LYMPH NODES: Normal. VASCULAR: Unremarkable. PELVIC VISCERA: May be a 3 cm left ovarian cyst. This is new from prior exam. Uterus and adnexa are otherwise unremarkable. OSSEOUS STRUCTURES: Degenerative disc disease at L5-S1. CT/CT abdomen pelvis wo con IMPRESSION: Horseshoe kidney. Small right-sided stones. Fleischner guidelines were followed.
== END 2021-05-22 14:39 | disposition home or self-care (01) ==
LOC: HO.CT 14:38
PROVIDERS: Visit Provider Urology
DX: N20.0 Calculus of kidney (principal)
CPT/HCPCS: 74176

== ENCOUNTER 2021-06-29 10:47 | Outpatient (REF) | payer OTHER, SELFPAY ==
[2021-06-29 14:35] LABS: Influenza A PCR NEGATIVE (Negative); Influenza B PCR NEGATIVE (Negative); Resp Syncy Virus RNA Qual PCR NEGATIVE (Negative); SARS COV2 PCR INHOUSE NEGATIVE (Negative)
== END 2021-06-29 10:48 | disposition home or self-care (01) ==
LOC: HO.LAB 10:47
PROVIDERS: Visit Provider Family Medicine
DX: R50.9 Fever, unspecified (principal); Z20.822 Contact with and (suspected) exposure to COVID-19
CPT/HCPCS: 0241U

== ENCOUNTER 2021-07-26 01:22 | Emergency (ER) | payer OTHER, SELFPAY ==
--- NOTE | ~2021-07-26 | CT_ITS ---
EXAMINATION: CT ABDOMEN AND PELVIS WITHOUT CONTRAST CLINICAL INFORMATION: Right-sided flank pain. COMPARISON: 05/22/2021 TECHNIQUE: Multidetector volumetric imaging was performed from the superior aspect of the liver through the pubic symphysis. Sagittal and coronal reformatted images were obtained on the technologist's workstation. This CT examination was performed using dose optimization techniques as appropriate, variously including the following: *Automated exposure control *Adjustment of mA and/or kV according to patient size (this includes techniques or standardized protocols for targeted exams where dose is matched to indication/reason for exam; i.e. extremities or head) *Use of iterative reconstruction technique DLP: 712 mGy-cm FINDINGS: LUNG BASES: The visualized lung bases are unremarkable. LIVER, GALLBLADDER, AND BILIARY TREE: The liver is normal in size, shape, and attenuation. No focal hepatic lesion or biliary ductal dilatation is present. The gallbladder is unremarkable with no evidence of radiopaque gallstones, gallbladder wall thickening, or obvious pericholecystic inflammatory changes. PANCREAS: Unremarkable. SPLEEN: Unremarkable. ADRENAL GLANDS: Unremarkable. KIDNEYS AND URETERS: Horseshoe kidney. There is mild fullness of the renal pelvises bilaterally with no hydroureter. Nonobstructing calculi in the right moiety. Upper pole 0.4 cm calculus is 12 cm from the posterior axillary line. There is a 0.2 cm lower pole calculus which is 17 cm from the posterior axillary line. BLADDER: Unremarkable. GASTROINTESTINAL TRACT: The stomach is unremarkable. Normal caliber small bowel. No obstruction. No colonic wall thickening or inflammatory change. No free air or free fluid. Normal appendix. ABDOMINAL WALL: No significant hernia is appreciated. LYMPH NODES: Normal. VASCULAR: Unremarkable. PELVIC VISCERA: The uterus and adnexa are unremarkable. OSSEOUS STRUCTURES: No acute or suspicious osseous abnormality. Mild degenerative changes in the spine. CT/CT abdomen pelvis wo con IMPRESSION: No acute findings in the abdomen or pelvis. No inflammatory change. Horseshoe kidney. Small right-sided calculi are again noted. Mild fullness of the renal pelvises with no hydroureter or obstruction identified. Fleischner guidelines were followed.
[2021-07-26 01:23] VITALS: BP 150/98; PULSE 97; RESP 22; TEMP 36.6; O2SAT 98; BMI 30.2
[2021-07-26] MEDS: Ondansetron ODT 4 MG TAB.RAPDIS SUBLINGUAL (01:28)
--- NOTE | 2021-07-26 01:45 | PC.NURSE ---
lab work drawn and sent at this time, pt educated on need for urine sample, states she is unable to urinate at this time.
[2021-07-26 01:47] LABS: Basophils Absolute Auto 0.1 X10*3/uL (0.0-0.2); Basophils Percent Auto 0.6 % (0-2); Eosinophils Absolute Auto 0.2 X10*3/uL (0.0-0.4); Eosinophils Percent Auto 1.3 % (0-4); Hematocrit 43.4 % (37.0-47.0); Hemoglobin 14.2 g/dl (12.0-16.0); Imm Gran Abs Auto 0.04 X10*3/uL (0.00-0.03); Imm Gran Pct Auto 0.3 % (0.0-0.4); Lymphocytes Absolute Auto 3.6 X10*3/uL (1.2-4.9); Lymphocytes Percent Auto 28.7 % (20-40); MANUAL DIFF FLAG NO; Mean Corpuscular HGB Conc 32.7 g/dl (31.0-35.0); Mean Corpuscular Hemoglobin 29.3 pg (27.0-33.0); Mean Corpuscular Volume 89.7 fL (80.0-98.0); Mean Platelet Volume 10.4 fL (9.4-12.3); Monocytes Absolute Auto 0.9 X10*3/uL (0.1-1.2); Monocytes Percent Auto 7.2 % (2-11); Neutrophils Absolute Auto 7.9 x10*3/uL (2.0-8.3); Neutrophils Percent Auto 61.9 % (45-73); Platelet Count 349 X10*3/uL (160-400); Red Blood Count 4.84 X10*6/uL (4.20-5.50); White Blood Count 12.7 X10*3/uL (4.8-10.8)
[2021-07-26 02:16] LABS: Alanine Aminotransferase 13 U/L (0-31); Albumin Level 4.1 g/dL (3.5-5.0); Alkaline Phosphatase 61 U/L (39-117); Anion Gap 13 (12-20); Aspartate Amino Transferase 22 U/L (5-31); Bilirubin Total 0.6 mg/dL (0.0-1.0); Blood Urea Nitrogen 12 mg/dL (9-16); Calcium 9.3 mg/dL (8.4-10.2); Carbon Dioxide 24 mmol/L (22-29); Chloride 106 mmol/L (96-108); Creatinine Clr Calc Pharmacy 93.6; Estimated Glomerular Filt Rate > 60; Glucose Random 214 mg/dL (60-115); Lipase 56 U/L (8-78); Potassium 3.8 mmol/L (3.3-5.1); Sodium 139 mmol/L (135-145); Total Protein 7.4 g/dL (6.5-8.0)
[2021-07-26] MEDS: Ketorolac Tromethamine 30 MG/ML VIAL IVPUSH (02:44)
[2021-07-26] MEDS: ondansetron HCL 4 MG/2 ML VIAL IVPUSH (02:44)
--- NOTE | 2021-07-26 03:20 | ED.FEMALEGU ---
HPI - Female Genitourinary General Chief complaint: Urogenital-Female Stated complaint: kidney stones Time Seen by Provider: 07/26/21 02:24 Source: patient Mode of arrival: ambulatory Limitations: no limitations History of Present Illness HPI Narrative: Patient comes emergency room complaining of sudden onset of right flank pain, nausea, vomiting, 1 episode of diarrhea. Patient states that she has had multiple stones in the past, has needed stents, lithotripsies. Related Data Previous Rx's Medication Instructions Recorded pyridoxine (vitamin B6) 100 mg 100 mg PO DAILY 90 Days #90 tab 03/24/21 tablet acetaminophen 500 mg tablet (Pain 500 mg PO Q8H PRN #90 tab 05/22/21 Reliever Extra Strength) amlodipine 5 mg tablet 5 mg PO DAILY 90 Days #90 tab 05/22/21 cyclobenzaprine 5 mg tablet 5 mg PO BEDTIME 15 Days #15 tab 05/22/21 ibuprofen 800 mg tablet 800 mg PO TID PRN 30 Days #90 tab 05/22/21 lidocaine 5 % topical patch 1 patch TOPICAL DAILY 15 Days #15 05/22/21 (Lidoderm) ea lorazepam 0.5 mg tablet 0.5 mg PO TID PRN 30 Days #90 tab 05/22/21 tramadol 50 mg tablet See Rx Instructions PO .COMPLEX 07/20/21 PRN 10 Days #30 tab cholecalciferol (vitamin D3) 50 50 mcg PO DAILY #30 cap 07/21/21 mcg (2,000 unit) capsule levofloxacin 500 mg tablet 500 mg PO DAILY #9 tab 07/26/21 oxycodone 5 mg tablet 5 mg PO BID PRN #6 tab 07/26/21 phenazopyridine 100 mg tablet 100 mg PO TID #6 tab 07/26/21 Allergies Allergy/AdvReac Type Severity Reaction Status Date / Time celecoxib [From Celebrex] Allergy Intermediate ITCHING Verified 07/26/21 01:25 Effexor Allergy Unknown itching Verified 07/26/21 01:25 metronidazole Allergy Unknown rash Verified 07/26/21 01:25 sertraline [Zoloft] Allergy Unknown itching Verified 07/26/21 01:25 Sulfa (Sulfonamide Allergy Unknown unknown, Verified 07/26/21 01:25 Antibiotics) yeast infection sulfamethoxazole Allergy Unknown ITCHING Verified 07/26/21 01:25 [From BACTRIM] trimethoprim [From BACTRIM] Allergy Unknown ITCHING Verified 07/26/21 01:25 tramadol AdvReac Intermediate Nausea Verified 07/26/21 01:25 alprazolam [From XANAX] AdvReac Mild CONFUSION Verified 07/26/21 01:25 Review of Systems Review of Systems: Constitutional : No Weight loss, No Fever, No Chills, No Night Sweats, No Fatigue, No Malaise ENT/Mouth : No Hearing loss, No Ear Pain, No Nasal Congestion, No Sinus Pain, No Hoarseness, No sore throat, No Rhinorrhea, No Swallowing Difficulty Eyes: No Eye Pain, No Swelling, No Redness, No Foreign Body, No Discharge, No Vision Changes Cardiovascular : No Chest Pain, No SOB, No Dyspnea on Exertion, No Orthopnea, No Edema, No Palpitations Respiratory : No Cough, No Sputum, No Wheezing, No Smoke Exposure, No Dyspnea Gastrointestinal : No Nausea, No Vomiting, No Diarrhea, No Constipation, No abdominal Pain, No Hematochezia, No Melena Genitourinary : no irregular bleeding, No Dysuria, No Urinary Frequency, No Hematuria, No Urinary Incontinence, No Urgency, complaining of right-sided Flank Pain, No Urinary Flow Changes, No Hesitancy Musculoskeletal : No joint pain, No Myalgias, No Joint Swelling Skin : No Skin Lesions, No rash Neuro : No Weakness, No Numbness, No Paresthesias, No Loss of Consciousness, No Dizziness, No Headache Psych : No Anxiety/Panic, No Depression, No SI/HI/AH/VH, No Social Issues, Heme/Lymph: No Bruising, No Bleeding,No Lymphadenopathy Endocrine : No Polyuria, No Polydipsia, No Temperature Intolerance FOR[facility]LY [facility], [facility] Past Medical History Medical History Anxiety Benign essential hypertension Gestational HTN Horseshoe kidney Lumbar degenerative disc disease Obesity (BMI 30-39.9) Surgical History Back pain with history of spinal surgery H/O wrist surgery History of extraction of renal calculus Family History Family History Father HIV (human immunodeficiency virus infection) Mother CVD (cardiovascular disease) Maternal Grandmother Breast cancer Diabetes Hypertension Maternal Grandfather Prostate cancer Paternal Grandmother CVD (cardiovascular disease) Paternal Grandfather Prostate cancer Sister In good health Son In good health Social History Social History Household Members: Spouse Housing: Apartment Are you a primary intensive care ambulance paramedic to a significant other at home: No Do you presently have visiting nurse or other home services: No Alcohol intake: current Alcohol intake frequency: holidays/special occasions only Patient Tobacco Use Status: Never used Tobacco e-Cigarette/Vaping Use: Never Used Second Hand Smoke Exposure: No Advance Directives: No Advance Directives Information Provided: Yes Patient : No service: Yes (ACTIVE) Current occupational status: employed Cognitive needs: No Hearing needs: No Vision needs: No Physical Exam Vital Signs: Vital Signs: Last Vital Signs Temp 98.1 F 07/26/21 05:41 Pulse 81 07/26/21 05:41 Resp 18 07/26/21 05:41 BP 113/54 L 07/26/21 05:41 Pulse Ox 98 07/26/21 05:41 BMI result Body Mass Index 30.2 Const: Other: Appearance: Alert. Oriented X3. Looks uncomfortable Eyes: Pupils equal, round and reactive to light. ENT: Pharynx normal. Neck: Normal inspection. Neck supple. No lymph nodes noted. No crepitus CVS: Normal heart rate and rhythm. Pulses normal. Normal S1 and S2 Respiratory: No respiratory distress. Breath sounds normal. No Wheezing. No rales Abdomen: Soft and nontender. No rigidity. No distention. Back: Right-sided flank pain, positive CVA tenderness Skin: Skin warm and dry. Normal skin color. Normal skin turgor. Extremities: No lower extremity edema. No Lacerations. No Rash Neuro: Oriented X 3. No motor deficit. No sensory deficit. Moving all extremities. No slurred speech. CN 2 through 12 grossly intact Psych: calm, cooperative, normal affect Course Course Course Narrative: Patient white blood cell count was elevated, patient has been unable to provide a urine sample. She has a history of horseshoe kidneys, multiple urological procedures. Patient was given IV fluids, Zofran, Ketoralac. Patient is still in pain, patient being given now morphine. Patient's CT scan does not show any ureterolithiasis. Patient has small right-sided stones. MDM - Female Genitourinary Lab Data Result diagrams: 07/26/21 01:43 07/26/21 01:43 Labs: Lab Results 07/26/21 07/26/21 07/26/21 Range/Units 01:43 01:43 04:27 WBC 12.7 H (4.8-10.8) X10*3/uL RBC 4.84 (4.20-5.50) X10*6/uL Hgb 14.2 (12.0-16.0) g/dl Hct 43.4 (37.0-47.0) % MCV 89.7 (80.0-98.0) fL MCH 29.3 (27.0-33.0) pg MCHC 32.7 (31.0-35.0) g/dl RDW 13.0 (11.0-16.0) % Plt Count 349 (160-400) X10*3/uL MPV 10.4 (9.4-12.3) fL Immature Gran % (Auto) 0.3 (0.0-0.4) % Neut % (Auto) 61.9 (45-73) % Lymph % (Auto) 28.7 (20-40) % [place] % (Auto) 7.2 (2-11) % Eos % (Auto) 1.3 (0-4) % Baso % (Auto) 0.6 (0-2) % Lymph # (Auto) 3.6 (1.2-4.9) X10*3/uL [place] # (Auto) 0.9 (0.1-1.2) X10*3/uL Eos # (Auto) 0.2 (0.0-0.4) X10*3/uL Baso # (Auto) 0.1 (0.0-0.2) X10*3/uL Abs Immat Gran (auto) 0.04 H (0.00-0.03) X10*3/uL Absolute Neuts (auto) 7.9 (2.0-8.3) x10*3/uL Absolute Nucleated RBC 0.000 (0.0-0.012) X10*3/uL Nucleated RBC % (auto) 0.0 (0.0-0.2) /100WBC Sodium 139 (135-145) mmol/L Potassium 3.8 (3.3-5.1) mmol/L Chloride 106 (96-108) mmol/L Carbon Dioxide 24 (22-29) mmol/L Anion Gap 13 (12-20) BUN 12 (9-16) mg/dL Creatinine 0.85 (0.5-1.4) mg/dL Estim Creat Clear Calc 93.6 Estimated GFR > 60 Random Glucose 214 H (60-115) mg/dL Calcium 9.3 (8.4-10.2) mg/dL Total Bilirubin 0.6 (0.0-1.0) mg/dL AST 22 (5-31) U/L ALT 13 (0-31) U/L Alkaline Phosphatase 61 (39-117) U/L Total Protein 7.4 (6.5-8.0) g/dL Albumin 4.1 (3.5-5.0) g/dL Lipase 56 (8-78) U/L Urine Color YELLOW Urine Appearance CLOUDY Urine pH 6.0 (5.0-8.0) Ur Specific [place] 1.025 (1.005-1.025) Urine Protein NEG (NEG-TRACE) MG/DL Urine Glucose (UA) 250 H (NEG) MG/DL Urine Ketones 5 (NEG) MG/DL Urine Blood 1+ H (NEG) Urine Nitrite POS H (NEG) Ur Leukocyte Esterase 1+ H (NEG) Urine RBC 0-2 (0) /HPF Urine WBC 15-29 H (0-4) /HPF Ur Squamous Epith Cells 3+ /LPF Urine Bacteria 3+ /LPF Urine Mucus 1+ /LPF Urine Test (NEGATIVE) 07/26/21 Range/Units 04:27 WBC (4.8-10.8) X10*3/uL RBC (4.20-5.50) X10*6/uL Hgb (12.0-16.0) g/dl Hct (37.0-47.0) % MCV (80.0-98.0) fL MCH (27.0-33.0) pg MCHC (31.0-35.0) g/dl RDW (11.0-16.0) % Plt Count (160-400) X10*3/uL MPV (9.4-12.3) fL Immature Gran % (Auto) (0.0-0.4) % Neut % (Auto) (45-73) % Lymph % (Auto) (20-40) % [place] % (Auto) (2-11) % Eos % (Auto) (0-4) % Baso % (Auto) (0-2) % Lymph # (Auto) (1.2-4.9) X10*3/uL [place] # (Auto) (0.1-1.2) X10*3/uL Eos # (Auto) (0.0-0.4) X10*3/uL Baso # (Auto) (0.0-0.2) X10*3/uL Abs Immat Gran (auto) (0.00-0.03) X10*3/uL Absolute Neuts (auto) (2.0-8.3) x10*3/uL Absolute Nucleated RBC (0.0-0.012) X10*3/uL Nucleated RBC % (auto) (0.0-0.2) /100WBC Sodium (135-145) mmol/L Potassium (3.3-5.1) mmol/L Chloride (96-108) mmol/L Carbon Dioxide (22-29) mmol/L Anion Gap (12-20) BUN (9-16) mg/dL Creatinine (0.5-1.4) mg/dL Estim Creat Clear Calc Estimated GFR Random Glucose (60-115) mg/dL Calcium (8.4-10.2) mg/dL Total Bilirubin (0.0-1.0) mg/dL AST (5-31) U/L ALT (0-31) U/L Alkaline Phosphatase (39-117) U/L Total Protein (6.5-8.0) g/dL Albumin (3.5-5.0) g/dL Lipase (8-78) U/L Urine Color Urine Appearance Urine pH (5.0-8.0) Ur Specific [place] (1.005-1.025) Urine Protein (NEG-TRACE) MG/DL Urine Glucose (UA) (NEG) MG/DL Urine Ketones (NEG) MG/DL Urine Blood (NEG) Urine Nitrite (NEG) Ur Leukocyte Esterase (NEG) Urine RBC (0) /HPF Urine WBC (0-4) /HPF Ur Squamous Epith Cells /LPF Urine Bacteria /LPF Urine Mucus /LPF Urine Test NEGATIVE (NEGATIVE) Imaging Data CT scan of abdomen and pelvis: Radiologist's impression: TECHNIQUE: Multidetector volumetric imaging was performed from the superior aspect of the liver through the pubic symphysis. Sagittal and coronal reformatted images were obtained on the technologist's workstation.? This CT examination was performed using dose optimization techniques as appropriate, variously including the following: *Automated exposure control *Adjustment of mA and/or kV according to patient size (this includes techniques or standardized protocols for targeted exams where dose is matched to indication/reason for exam; i.e. extremities or head) *Use of iterative reconstruction technique DLP: 712 mGy-cm FINDINGS: LUNG BASES: The visualized lung bases are unremarkable.? LIVER, GALLBLADDER, AND BILIARY TREE: The liver is normal in size, shape, and attenuation. No focal hepatic lesion or biliary ductal dilatation is present. The gallbladder is unremarkable with no evidence of radiopaque gallstones, gallbladder wall thickening, or obvious pericholecystic inflammatory changes.? PANCREAS: Unremarkable.? SPLEEN: Unremarkable.? ADRENAL GLANDS: Unremarkable.? KIDNEYS AND URETERS: Horseshoe kidney. There is mild fullness of the renal pelvises bilaterally with no hydroureter. Nonobstructing calculi in the right moiety. Upper pole 0.4 cm calculus is 12 cm from the posterior axillary line. There is a 0.2 cm lower pole calculus which is 17 cm from the posterior axillary line. BLADDER: Unremarkable.? GASTROINTESTINAL TRACT: The stomach is unremarkable. Normal caliber small bowel. No obstruction. No colonic wall thickening or inflammatory change. No free air or free fluid. Normal appendix.? ABDOMINAL WALL: No significant hernia is appreciated.? LYMPH NODES: Normal. VASCULAR: Unremarkable. PELVIC VISCERA: The uterus and adnexa are unremarkable.? OSSEOUS STRUCTURES: No acute or suspicious osseous abnormality. Mild degenerative changes in the spine.? CT/CT abdomen pelvis wo con IMPRESSION: No acute findings in the abdomen or pelvis. No inflammatory change. ? Horseshoe kidney. Small right-sided calculi are again noted. Mild fullness of the renal pelvises with no hydroureter or obstruction identified.? ? Fleischner guidelines were followed. Discharge Plan Discharge Clinical Impression: Pyelonephritis Patient Disposition: Home, Self-Care Instructions: Kidney Infection (ED) Additional Instructions: Please follow-up with your primary care physician tomorrow. If you have any worsening or new symptoms, please return to the emergency room or call 911 Prescriptions: New levofloxacin 500 mg tablet 500 mg PO DAILY Qty: 9 0RF phenazopyridine 100 mg tablet 100 mg PO TID Qty: 6 0RF oxycodone 5 mg tablet 5 mg PO BID PRN (Reason: pain) Qty: 6 0RF No Action lidocaine [Lidoderm] 5 % adhesive patch,medicated 1 patch topical DAILY 15 Days Qty: 15 0RF Rx Instructions: leave on most painful area for up to 12 hrs acetaminophen [Pain Reliever Extra Strength] 500 mg tablet 500 mg PO Q8H PRN (Reason: fever or pain) Qty: 90 0RF amlodipine 5 mg tablet 5 mg PO DAILY 90 Days Qty: 90 1RF cyclobenzaprine 5 mg tablet 5 mg PO BEDTIME 15 Days Qty: 15 0RF ibuprofen 800 mg tablet 800 mg PO TID PRN (Reason: pain) 30 Days Qty: 90 2RF Rx Instructions: Take with food lorazepam 0.5 mg tablet 0.5 mg PO TID PRN (Reason: anxiety) 30 Days Qty: 90 0RF tramadol 50 mg tablet See Rx Instructions PO .COMPLEX PRN (Reason: pain) 10 Days Qty: 30 0RF Rx Instructions: Take 1 tablet 2 to 3 times a day only as needed for increased pain PO PRN; cholecalciferol (vitamin D3) 50 mcg (2,000 unit) capsule 50 mcg PO DAILY Qty: 30 0RF pyridoxine (vitamin B6) 100 mg tablet 100 mg PO DAILY 90 Days Qty: 90 1RF Stand Alone Forms: Work/School Release
[2021-07-26] MEDS: Morphine Sulfate 4 MG/ML CARTRIDGE IVPUSH (03:33)
[2021-07-26] MEDS: 0.9 % Sodium Chloride 1,000 ML 999 ML IVCONT (03:34)
[2021-07-26 04:36] LABS: Appearance Urine CLOUDY; Color Urine YELLOW; Glucose Urine UA 250 MG/DL (NEG); Leukocyte Esterase Urine 1+ (NEG); Nitrite Urine POS (NEG); Specific Gravity - Urine 1.025 (1.005-1.025); UACC Culture Trigger YES; Urine Blood 1+ (NEG); Urine Ketones 5 MG/DL (NEG); Urine Protein NEG (NEG-TRACE)
[2021-07-26 04:37] LABS: UPreg QC Valid YES; Urine Pregnancy NEGATIVE (NEGATIVE)
[2021-07-26 04:42] LABS: Bacteria Urine 3+ /LPF; Mucus Urine 1+ /LPF; RBC Urine 0-2 /HPF (0); Squamous Epithelial Cell Urine 3+ /LPF
[2021-07-26] MEDS: HYDROmorphone HCl 1 MG/ML SYRINGE IVPUSH (04:50)
[2021-07-26 05:41] VITALS: BP 113/54; PULSE 81; RESP 18; TEMP 36.7; O2SAT 98
[2021-07-26] MEDS: Fluconazole 100 MG TABLET PO (05:55)
== END 2021-07-26 06:19 | disposition home or self-care (01) ==
PROVIDERS: Emergency Provider Emergency Medicine
DX: N12 Tubulo-interstitial nephritis, not specified as acute or chronic (principal); R10.9 Unspecified abdominal pain; Q63.1 Lobulated, fused and horseshoe kidney; I10 Essential (primary) hypertension; Z87.442 Personal history of urinary calculi
CPT/HCPCS: 36415; 74176; 80053; 81001; 81025; 83690; 85025; 87086; 87088; 87186; 96361; 96374; 96375; 96376; 99284; J1170; J1885; J2270; J2405

== ENCOUNTER → 2021-08-06 14:43 | Outpatient (BNVA) | payer OTHER, SELFPAY | PROVIDERS: PCP Internal Medicine | DX: Z13.89 Encounter for screening for other disorder (principal) ==

== ENCOUNTER 2021-10-05 02:36 | Emergency (ER) | payer OTHER, SELFPAY ==
--- NOTE | ~2021-10-05 | US_ITS ---
EXAMINATION: US RETROPERITONEAL LIMITED (RENAL ONLY) CLINICAL INFORMATION: Right flank pain. History of stones.. COMPARISON: Multiple priors, most recently 07/26/2021 TECHNIQUE: Grayscale and color Doppler sonographic evaluation of the kidneys and bladder FINDINGS: Horseshoe kidney redemonstrated. Right moiety measures 10.4 x 5.3 x 4.4 cm (SAG x AP x TRV). Left moiety measures 10.9 x 4.8 x 4.0 cm (SAG x AP x TRV). No hydronephrosis. There is a 6 mm stone in the midpole of the right moiety. Right renal pelvic fullness redemonstrated without varinder hydronephrosis. Similar to the prior CT. Bladder is normal. Bilateral ureteral jets are seen. US/US renal BI IMPRESSION: * Horseshoe kidney. * Nonobstructive 6 mm calculus in the right moiety. * No hydronephrosis.
[2021-10-05 02:51] VITALS: BP 133/88; PULSE 75; RESP 20; TEMP 36.7; O2SAT 98; BMI 30.2
--- NOTE | 2021-10-05 02:57 | ED_ITS ---
HPI - Abdominal Pain General Chief Complaint: General Medical Stated Complaint: kidney stone Time Seen by Provider: 10/05/21 02:49 Source: patient Mode of arrival: ambulatory Limitations: no limitations History of Present Illness HPI narrative: 41 yo female with hx of UTI, back pain, renal calculi followed by Urology hx of last CT scan back in July showed non obstructing calculi R kidney 4mm and 2mm, she has had 3 CT scans of the abdomen and pelvis since 2020 and review of EMR shows 15 CT scans at our facility alone. She comes in with c/o R flank pain and nausea for 1.5 hours, feels like a stone MD elicited complaint: flank pain Pertinent past history: kidney stones Onset (ago): hour(s) (1.5) Pain Consistency: constant Location: R flank Severity: severe Quality: stabbing Radiation: RLQ Migration to: no migration Exacerbating factors: nothing Relieving factors: nothing Context: history of similar episodes Associated symptoms: nausea Related Data Previous Rx's Medication Instructions Recorded pyridoxine (vitamin B6) 100 mg 100 mg PO DAILY 90 days #90 tabs 03/24/21 tablet acetaminophen 500 mg tablet (Pain 500 mg PO Q8H PRN fever or pain 05/22/21 Reliever Extra Strength) #90 tabs amlodipine 5 mg tablet 5 mg PO DAILY 90 days #90 tabs 05/22/21 cyclobenzaprine 5 mg tablet 5 mg PO BEDTIME 15 days #15 tabs 05/22/21 ibuprofen 800 mg tablet 800 mg PO TID PRN pain 30 days #90 05/22/21 tabs lidocaine 5 % topical patch 1 patch topical DAILY 15 days #15 05/22/21 (Lidoderm) ea lorazepam 0.5 mg tablet 0.5 mg PO TID PRN anxiety 30 days 05/22/21 #90 tabs tramadol 50 mg tablet See Rx Instructions PO .COMPLEX 07/20/21 PRN pain 10 days #30 tabs cholecalciferol (vitamin D3) 50 50 mcg PO DAILY #30 caps 07/21/21 mcg (2,000 unit) capsule levofloxacin 500 mg tablet 500 mg PO DAILY #9 tabs 07/26/21 phenazopyridine 100 mg tablet 100 mg PO TID 6 doses #6 tabs 07/26/21 naproxen 500 mg tablet (Naprosyn) 500 mg PO BID PRN pain 2 weeks #28 07/28/21 tabs levofloxacin 500 mg tablet 500 mg PO DAILY 7 days #7 tabs 08/06/21 oxycodone 5 mg tablet 5 mg PO Q8H PRN pain #20 tabs 08/06/21 oxycodone 5 mg tablet 5 mg PO BID PRN pain #14 tabs 09/18/21 hydrocortisone 2.5 % topical cream 1 appl [place] BID-QID PRN hemorrhoids 09/28/21 with perineal applicator #30 grams (Proctosol HC) morphine 15 mg immediate release 15 mg PO TID PRN pain #12 tabs 10/05/21 tablet ondansetron 4 mg disintegrating 4 mg PO Q8H PRN nausea and 10/05/21 tablet vomiting #20 tabs Allergies Allergy/AdvReac Type Severity Reaction Status Date / Time celecoxib [From Celebrex] Allergy Intermediate ITCHING Verified 09/18/21 08:55 Effexor Allergy Unknown itching Verified 09/18/21 08:55 metronidazole Allergy Unknown rash Verified 09/18/21 08:55 sertraline [Zoloft] Allergy Unknown itching Verified 09/18/21 08:55 Sulfa (Sulfonamide Allergy Unknown unknown, Verified 09/18/21 08:55 Antibiotics) yeast infection sulfamethoxazole Allergy Unknown ITCHING Verified 09/18/21 08:55 [From BACTRIM] trimethoprim [From BACTRIM] Allergy Unknown ITCHING Verified 09/18/21 08:55 tramadol AdvReac Intermediate Nausea Verified 09/18/21 08:55 alprazolam [From XANAX] AdvReac Mild CONFUSION Verified 09/18/21 08:55 Review of Systems Review of Systems Constitutional : No Weight loss, No Fever, No Chills ENT/Mouth : No sore throat, No Rhinorrhea Eyes: No Swelling, No Redness Cardiovascular : No Chest Pain, No SOB, NoEdema Respiratory : No Cough, No Sputum, No Wheezing Gastrointestinal : Positive Nausea, no Vomiting, no Diarrhea, positive abdominal Pain, No Hematochezia, No Melena Genitourinary : No Dysuria, No Urinary Frequency, No Hematuria, No Urgency Musculoskeletal : No joint pain, No Myalgias, No Joint Swelling Skin : No Skin Lesions, No rash Neuro : No Weakness, No Numbness, No Dizziness, No Headache Psych : No Anxiety/Panic, No Depression Heme/Lymph: No Bruising, No Lymphadenopathy Endocrine : No Polyuria, No Polydipsia All other systems reviewed and are negative. [facility] Past Medical History Attestation statement: The following information was validated with the patient. Medical History Anxiety Benign essential hypertension Gestational HTN Horseshoe kidney Lumbar degenerative disc disease Obesity (BMI 30-39.9) Pyelonephritis Renal calculi Surgical History Back pain with history of spinal surgery H/O wrist surgery History of extraction of renal calculus Family History Family History Father HIV (human immunodeficiency virus infection) Mother CVD (cardiovascular disease) Maternal Grandmother Breast cancer Diabetes Hypertension Maternal Grandfather Prostate cancer Paternal Grandmother CVD (cardiovascular disease) Paternal Grandfather Prostate cancer Sister In good health Son In good health Social History Social History Household Members: Spouse Housing: Apartment Are you a primary healthcare facility administrator to a significant other at home: No Do you presently have visiting nurse or other home services: No Alcohol intake: current Alcohol intake frequency: holidays/special occasions only Patient Tobacco Use Status: Never used Tobacco e-Cigarette/Vaping Use: Never Used Second Hand Smoke Exposure: No Advance Directives: No Advance Directives Information Provided: Yes service: Yes (ACTIVE) Current occupational status: employed Cognitive needs: No Hearing needs: No Vision needs: No Physical Exam ED Vital Signs: Vital Signs - 24 hr 10/05/21 02:51 Temperature 98.0 F Pulse Rate 75 Respiratory Rate 20 Blood Pressure 133/88 Pulse Oximetry 98 Oxygen Delivery Method Room Air BMI result Body Mass Index 30.2 Appearance: Alert. Oriented X3. in pain mild acute distress. Eyes: Pupils equal, round and reactive to light. ENT: Pharynx normal. Neck: Normal inspection. Neck supple. CVS: Normal heart rate and rhythm. Pulses normal. Respiratory: No respiratory distress. Breath sounds normal. Abdomen: Soft and R sided abdominal ttp Skin: Skin warm and dry. Normal skin color. Normal skin turgor. Extremities: No lower extremity edema. No calf ttp Neuro: Oriented X 3. No motor deficit. No sensory deficit. Course Course Course Narrative: no obstructing stones, UA and labs within normal limits feels much better stable for DC MDM - Abdominal Pain MDM Narrative Medical decision making narrative: 41 yo female with hx of UTI, horseshoe kidney, renal colic s/p lithotripsy and stents comes in with c/o R flank pain and nausea at this time will need labs, UA, IVF, IV toradol/morphine for pain. US to evaluate for obstruction. Dispo per reults and findings. Lab Data Result diagrams: 10/05/21 03:04 10/05/21 03:04 Labs: Lab Results 10/05/21 10/05/21 10/05/21 Range/Units 03:04 03:04 04:15 WBC 10.8 (4.8-10.8) X10*3/uL RBC 4.76 (4.20-5.50) X10*6/uL Hgb 14.4 (12.0-16.0) g/dl Hct 44.1 (37.0-47.0) % MCV 92.6 (80.0-98.0) fL MCH 30.3 (27.0-33.0) pg MCHC 32.7 (31.0-35.0) g/dl RDW 12.5 (11.0-16.0) % Plt Count 353 (160-400) X10*3/uL MPV 10.7 (9.4-12.3) fL Immature Gran % (Auto) 0.3 (0.0-0.4) % Neut % (Auto) 60.6 (45-73) % Lymph % (Auto) 28.7 (20-40) % [place] % (Auto) 7.9 (2-11) % Eos % (Auto) 1.9 (0-4) % Baso % (Auto) 0.6 (0-2) % Lymph # (Auto) 3.1 (1.2-4.9) X10*3/uL [place] # (Auto) 0.9 (0.1-1.2) X10*3/uL Eos # (Auto) 0.2 (0.0-0.4) X10*3/uL Baso # (Auto) 0.1 (0.0-0.2) X10*3/uL Abs Immat Gran (auto) 0.03 (0.00-0.03) X10*3/uL Absolute Neuts (auto) 6.6 (2.0-8.3) x10*3/uL Absolute Nucleated RBC 0.000 (0.0-0.012) X10*3/uL Nucleated RBC % (auto) 0.0 (0.0-0.2) /100WBC Sodium 141 (135-145) mmol/L Potassium 3.9 (3.3-5.1) mmol/L Chloride 105 (96-108) mmol/L Carbon Dioxide 26 (22-29) mmol/L Anion Gap 14 (12-20) BUN 9 (9-16) mg/dL Creatinine 0.78 (0.5-1.4) mg/dL Estim Creat Clear Calc 102.0 Estimated GFR > 60 Random Glucose 103 (60-115) mg/dL Calcium 9.1 (8.4-10.2) mg/dL Magnesium 2.1 (1.6-2.6) mg/dL Total Bilirubin 0.3 (0.0-1.0) mg/dL Direct Bilirubin < 0.2 (0.0-0.5) mg/dL AST 20 (5-31) U/L ALT 14 (0-31) U/L Alkaline Phosphatase 71 (39-117) U/L Total Protein 7.4 (6.5-8.0) g/dL Albumin 4.3 (3.5-5.0) g/dL Lipase 61 (8-78) U/L Urine Color YELLOW Urine Appearance CLEAR Urine pH 6.5 (5.0-8.0) Ur Specific [place] 1.010 (1.005-1.025) Urine Protein NEG (NEG-TRACE) MG/DL Urine Glucose (UA) NEG (NEG) MG/DL Urine Ketones NEG (NEG) MG/DL Urine Blood NEG (NEG) Urine Nitrite NEG (NEG) Ur Leukocyte Esterase NEG (NEG) Urine Test (NEGATIVE) 10/05/21 Range/Units 04:15 WBC (4.8-10.8) X10*3/uL RBC (4.20-5.50) X10*6/uL Hgb (12.0-16.0) g/dl Hct (37.0-47.0) % MCV (80.0-98.0) fL MCH (27.0-33.0) pg MCHC (31.0-35.0) g/dl RDW (11.0-16.0) % Plt Count (160-400) X10*3/uL MPV (9.4-12.3) fL Immature Gran % (Auto) (0.0-0.4) % Neut % (Auto) (45-73) % Lymph % (Auto) (20-40) % [place] % (Auto) (2-11) % Eos % (Auto) (0-4) % Baso % (Auto) (0-2) % Lymph # (Auto) (1.2-4.9) X10*3/uL [place] # (Auto) (0.1-1.2) X10*3/uL Eos # (Auto) (0.0-0.4) X10*3/uL Baso # (Auto) (0.0-0.2) X10*3/uL Abs Immat Gran (auto) (0.00-0.03) X10*3/uL Absolute Neuts (auto) (2.0-8.3) x10*3/uL Absolute Nucleated RBC (0.0-0.012) X10*3/uL Nucleated RBC % (auto) (0.0-0.2) /100WBC Sodium (135-145) mmol/L Potassium (3.3-5.1) mmol/L Chloride (96-108) mmol/L Carbon Dioxide (22-29) mmol/L Anion Gap (12-20) BUN (9-16) mg/dL Creatinine (0.5-1.4) mg/dL Estim Creat Clear Calc Estimated GFR Random Glucose (60-115) mg/dL Calcium (8.4-10.2) mg/dL Magnesium (1.6-2.6) mg/dL Total Bilirubin (0.0-1.0) mg/dL Direct Bilirubin (0.0-0.5) mg/dL AST (5-31) U/L ALT (0-31) U/L Alkaline Phosphatase (39-117) U/L Total Protein (6.5-8.0) g/dL Albumin (3.5-5.0) g/dL Lipase (8-78) U/L Urine Color Urine Appearance Urine pH (5.0-8.0) Ur Specific [place] (1.005-1.025) Urine Protein (NEG-TRACE) MG/DL Urine Glucose (UA) (NEG) MG/DL Urine Ketones (NEG) MG/DL Urine Blood (NEG) Urine Nitrite (NEG) Ur Leukocyte Esterase (NEG) Urine Test NEGATIVE (NEGATIVE) Discharge Plan Discharge Clinical Impression: Renal colic Patient Disposition: Home, Self-Care Instructions: Renal Colic (ED) Additional Instructions: return to ED for any worsening symptoms or concerns please follow up with a Urologist given your symptoms TECHNIQUE: Grayscale and color Doppler sonographic evaluation of the kidneys and bladder FINDINGS: Horseshoe kidney redemonstrated. Right moiety measures 10.4 x 5.3 x 4.4 cm (SAG x AP x TRV). Left moiety measures 10.9 x 4.8 x 4.0 cm (SAG x AP x TRV). No hydronephrosis. There is a 6 mm stone in the midpole of the right moiety. Right renal pelvic fullness redemonstrated without varinder hydronephrosis. Similar to the prior CT. Bladder is normal. Bilateral ureteral jets are seen. US/US renal BI IMPRESSION: *? Horseshoe kidney. *? Nonobstructive 6 mm calculus in the right moiety. *? No hydronephrosis. Prescriptions: New morphine 15 mg tablet 15 mg PO TID PRN (Reason: pain) Qty: 12 0RF Rx Instructions: partial fill okay; Partial Fill upon patient request. ondansetron 4 mg tablet,disintegrating 4 mg PO Q8H PRN (Reason: nausea and vomiting) Qty: 20 0RF No Action lidocaine [Lidoderm] 5 % adhesive patch,medicated 1 patch topical DAILY 15 Days Qty: 15 0RF Rx Instructions: leave on most painful area for up to 12 hrs acetaminophen [Pain Reliever Extra Strength] 500 mg tablet 500 mg PO Q8H PRN (Reason: fever or pain) Qty: 90 0RF amlodipine 5 mg tablet 5 mg PO DAILY 90 Days Qty: 90 1RF cyclobenzaprine 5 mg tablet 5 mg PO BEDTIME 15 Days Qty: 15 0RF ibuprofen 800 mg tablet 800 mg PO TID PRN (Reason: pain) 30 Days Qty: 90 2RF Rx Instructions: Take with food lorazepam 0.5 mg tablet 0.5 mg PO TID PRN (Reason: anxiety) 30 Days Qty: 90 0RF tramadol 50 mg tablet See Rx Instructions PO .COMPLEX PRN (Reason: pain) 10 Days Qty: 30 0RF Rx Instructions: Take 1 tablet 2 to 3 times a day only as needed for increased pain PO PRN; cholecalciferol (vitamin D3) 50 mcg (2,000 unit) capsule 50 mcg PO DAILY Qty: 30 0RF naproxen [Naprosyn] 500 mg tablet 500 mg PO BID PRN (Reason: pain) 14 Days Qty: 28 0RF hydrocortisone [Proctosol HC] 2.5 % cream with perineal applicator 1 appl [place] BID-QID PRN (Reason: hemorrhoids) Qty: 30 0RF levofloxacin 500 mg tablet 500 mg PO DAILY Qty: 9 0RF phenazopyridine 100 mg tablet 100 mg PO TID Qty: 6 0RF oxycodone 5 mg tablet 5 mg PO BID PRN (Reason: pain) Qty: 14 0RF pyridoxine (vitamin B6) 100 mg tablet 100 mg PO DAILY 90 Days Qty: 90 1RF levofloxacin 500 mg tablet 500 mg PO DAILY 7 Days Qty: 7 0RF oxycodone 5 mg tablet 5 mg PO Q8H PRN (Reason: pain) Qty: 20 0RF Stand Alone Forms: Work/School Release
[2021-10-05] MEDS: Ketorolac Tromethamine 30 MG/ML VIAL IVPUSH (03:12)
[2021-10-05] MEDS: Morphine Sulfate 4 MG/ML CARTRIDGE IVPUSH (03:12)
[2021-10-05] MEDS: ondansetron HCL 4 MG/2 ML VIAL IVPUSH (03:12)
[2021-10-05] MEDS: 0.9 % Sodium Chloride 1,000 ML 999 ML IV (03:18)
[2021-10-05 03:21] LABS: MANUAL DIFF FLAG NO
[2021-10-05 03:26] LABS: Basophils Absolute Auto 0.1 X10*3/uL (0.0-0.2); Basophils Percent Auto 0.6 % (0-2); Eosinophils Absolute Auto 0.2 X10*3/uL (0.0-0.4); Eosinophils Percent Auto 1.9 % (0-4); Hematocrit 44.1 % (37.0-47.0); Hemoglobin 14.4 g/dl (12.0-16.0); Imm Gran Abs Auto 0.03 X10*3/uL (0.00-0.03); Imm Gran Pct Auto 0.3 % (0.0-0.4); Lymphocytes Absolute Auto 3.1 X10*3/uL (1.2-4.9); Lymphocytes Percent Auto 28.7 % (20-40); Mean Corpuscular HGB Conc 32.7 g/dl (31.0-35.0); Mean Corpuscular Hemoglobin 30.3 pg (27.0-33.0); Mean Corpuscular Volume 92.6 fL (80.0-98.0); Mean Platelet Volume 10.7 fL (9.4-12.3); Monocytes Absolute Auto 0.9 X10*3/uL (0.1-1.2); Monocytes Percent Auto 7.9 % (2-11); Neutrophils Absolute Auto 6.6 x10*3/uL (2.0-8.3); Neutrophils Percent Auto 60.6 % (45-73); Platelet Count 353 X10*3/uL (160-400); Red Blood Count 4.76 X10*6/uL (4.20-5.50); Red Cell Distribution Width 12.5 % (11.0-16.0); White Blood Count 10.8 X10*3/uL (4.8-10.8)
[2021-10-05 03:39] LABS: Alanine Aminotransferase 14 U/L (0-31); Albumin Level 4.3 g/dL (3.5-5.0); Alkaline Phosphatase 71 U/L (39-117); Anion Gap 14 (12-20); Aspartate Amino Transferase 20 U/L (5-31); Bilirubin Direct < 0.2 mg/dL (0.0-0.5); Bilirubin Total 0.3 mg/dL (0.0-1.0); Blood Urea Nitrogen 9 mg/dL (9-16); Calcium 9.1 mg/dL (8.4-10.2); Carbon Dioxide 26 mmol/L (22-29); Chloride 105 mmol/L (96-108); Estimated Glomerular Filt Rate > 60; Glucose Random 103 mg/dL (60-115); Lipase 61 U/L (8-78); Magnesium 2.1 mg/dL (1.6-2.6); Potassium 3.9 mmol/L (3.3-5.1); Sodium 141 mmol/L (135-145); Total Protein 7.4 g/dL (6.5-8.0)
[2021-10-05] MEDS: HYDROmorphone HCl 1 MG/ML SYRINGE IVPUSH (04:08)
[2021-10-05 04:21] LABS: Appearance Urine CLEAR; Color Urine YELLOW; Glucose Urine UA NEG (NEG); Leukocyte Esterase Urine NEG (NEG); Nitrite Urine NEG (NEG); PH 6.5 (5.0-8.0); Urine Blood NEG (NEG); Urine Ketones NEG (NEG); Urine Protein NEG (NEG-TRACE)
[2021-10-05 04:23] LABS: Urine Pregnancy NEGATIVE (NEGATIVE)
[2021-10-05 04:24] LABS: UPreg QC Valid YES
[2021-10-05] MEDS: diphenhydrAMINE HCL 50 MG/ML VIAL 25 MG IVPUSH (04:28)
[2021-10-05] MEDS: Metoclopramide HCl 10 MG/2 ML VIAL IVPUSH (04:28)
== END 2021-10-05 06:30 | disposition home or self-care (01) ==
PROVIDERS: Emergency Provider Emergency Medicine; PCP Internal Medicine
DX: N20.0 Calculus of kidney (principal); M54.50 Low back pain, unspecified; N23 Unspecified renal colic; Z79.899 Other long term (current) drug therapy
CPT/HCPCS: 36415; 76775; 80048; 80076; 81003; 81025; 83690; 83735; 85025; 96361; 96374; 96375; 99283; 99284; J1170; J1200; J1885; J2270; J2405; J2765

== ENCOUNTER 2021-11-04 16:21 | Outpatient (REF) | payer OTHER, SELFPAY ==
[2021-11-05 09:20] LABS: BV Int Neg Control Negative (Negative); BV Int Pos Control Positive (Positive)
== END 2021-11-04 16:22 | disposition home or self-care (01) ==
LOC: HO.LNP 16:21
PROVIDERS: Visit Provider Emergency Medicine
DX: N89.8 Other specified noninflammatory disorders of vagina (principal)
CPT/HCPCS: 87480; 87510; 87660

== ENCOUNTER 2021-11-25 13:51 | Inpatient (IN) | payer OTHER, SELFPAY ==
--- NOTE | ~2021-11-25 | US_ITS ---
EXAMINATION: US PELVIS, LIMITED, BLADDER US KIDNEY, RIGHT CLINICAL INFORMATION: Right-sided flank pain. COMPARISON: Renal ultrasound 10/05/[address] abdomen pelvis 07/26/2021. TECHNIQUE: The right kidney was imaged along with real-time imaging of the bladder. FINDINGS: RIGHT KIDNEY AND URETER: A horseshoe kidney is present. The right moiety measures 11.7 x 6.3 x 5.2 cm. There is right-sided hydronephrosis and a dilated right ureter seen. The distal portion of the ureter is not well seen. No definite calculi are seen. No renal masses are seen. BLADDER: Well distended and normal. Bilateral ureteral jets are demonstrated. Pre-void bladder volume was not measured. Post-void bladder volume was not obtained. US/US renal RT IMPRESSION: 1. Right-sided hydronephrosis. 2. Normal-appearing bladder.
--- NOTE | ~2021-11-25 | US_ITS ---
EXAMINATION: US PELVIS, LIMITED, BLADDER US KIDNEY, RIGHT CLINICAL INFORMATION: Right-sided flank pain. COMPARISON: Renal ultrasound 10/05/[address] abdomen pelvis 07/26/2021. TECHNIQUE: The right kidney was imaged along with real-time imaging of the bladder. FINDINGS: RIGHT KIDNEY AND URETER: A horseshoe kidney is present. The right moiety measures 11.7 x 6.3 x 5.2 cm. There is right-sided hydronephrosis and a dilated right ureter seen. The distal portion of the ureter is not well seen. No definite calculi are seen. No renal masses are seen. BLADDER: Well distended and normal. Bilateral ureteral jets are demonstrated. Pre-void bladder volume was not measured. Post-void bladder volume was not obtained. US/US bladder IMPRESSION: 1. Right-sided hydronephrosis. 2. Normal-appearing bladder.
--- NOTE | ~2021-11-25 | FL_ITS ---
EXAMINATION: Intraoperative fluoroscopy CLINICAL INFORMATION: Right ureteral stone COMPARISON: Renal ultrasound 11/25/2021 TECHNIQUE: Intraoperative fluoroscopy was provided for use by Dr. Addison. A total of 1 image was saved to PACS. A radiologist was not present during imaging. Today's dictation is only for administrative purposes to document intraoperative fluoroscopic usage. TOTAL FLUOROSCOPIC TIME: 29 seconds FL/FL guidance in OR FINDINGS~\^^ Intraoperative fluoroscopy provided for use by Dr. Addison. Please see operative note for detailed findings.
[2021-11-25 13:59] VITALS: BP 153/90; PULSE 83; RESP 18; TEMP 36.8; O2SAT 97; BMI 30.9
[2021-11-25] MEDS: Ondansetron ODT 4 MG TAB.RAPDIS SUBLINGUAL (14:05)
[2021-11-25 14:39] LABS: MANUAL DIFF FLAG NO
[2021-11-25 14:40] LABS: Basophils Absolute Auto 0.1 X10*3/uL (0.0-0.2); Basophils Percent Auto 0.5 % (0-2); Eosinophils Absolute Auto 0.2 X10*3/uL (0.0-0.4); Eosinophils Percent Auto 1.6 % (0-4); Hemoglobin 14.6 g/dl (12.0-16.0); Imm Gran Abs Auto 0.02 X10*3/uL (0.00-0.03); Imm Gran Pct Auto 0.2 % (0.0-0.4); Lymphocytes Absolute Auto 2.7 X10*3/uL (1.2-4.9); Lymphocytes Percent Auto 26.4 % (20-40); Mean Corpuscular HGB Conc 32.4 g/dl (31.0-35.0); Mean Corpuscular Hemoglobin 29.6 pg (27.0-33.0); Mean Corpuscular Volume 91.3 fL (80.0-98.0); Mean Platelet Volume 10.6 fL (9.4-12.3); Monocytes Absolute Auto 0.6 X10*3/uL (0.1-1.2); Monocytes Percent Auto 5.5 % (2-11); Neutrophils Absolute Auto 6.7 x10*3/uL (2.0-8.3); Neutrophils Percent Auto 65.8 % (45-73); Platelet Count 362 X10*3/uL (160-400); Red Blood Count 4.93 X10*6/uL (4.20-5.50); Red Cell Distribution Width 12.4 % (11.0-16.0); White Blood Count 10.2 X10*3/uL (4.8-10.8)
[2021-11-25 14:46] LABS: Appearance Urine Cloudy; Color Urine Yellow; Glucose Urine UA Negative (Negative); Leukocyte Esterase Urine Large (3+) (Negative); Nitrite Urine Negative (Negative); Specific Gravity - Urine 1.015 (1.005-1.025); UMIC TRIGGER UACC YES; Urine Blood Moderate (2+) (Negative); Urine Ketones Negative (Negative); Urine Protein Trace mg/dL (Neg-Trace)
[2021-11-25 14:56] LABS: Anion Gap 14 (12-20); Blood Urea Nitrogen 10 mg/dL (9-16); Calcium 8.9 mg/dL (8.4-10.2); Carbon Dioxide 27 mmol/L (22-29); Chloride 104 mmol/L (96-108); Creatinine Clr Calc Pharmacy 100.7; Estimated Glomerular Filt Rate > 60; Glucose Random 159 mg/dL (60-115); Potassium 3.7 mmol/L (3.3-5.1); Sodium 141 mmol/L (135-145)
[2021-11-25 15:07] LABS: Bacteria Urine 1+ (None Seen); Hyaline Casts Urine 0-2 /LPF (0-2); Squamous Epithelial Cell Urine >20 /HPF (0-2); UACC Culture Trigger YES; WBC Urine >50 /HPF (0-5)
--- NOTE | 2021-11-25 15:47 | ED_ITS ---
HPI - General Adult General Chief complaint: General Medical Stated complaint: back pain quest kidney stone Time Seen by Provider: 11/25/21 15:27 Source: patient Mode of arrival: ambulatory Limitations: no limitations History of Present Illness HPI narrative: This is a 41-year-old female history of kidney stones, pyelonephritis, horseshoe kidney currently followed by urology Dr. Addison presenting with severe right sided flank pain, pain started around 1:30 PM. Patient tells me pain started suddenly and it feels like her typical stone, tells me she is scheduled for surgery for stones on December 10, 2021. Patient reports associated hematuria, nausea and right sided flank pain. Denies fevers, chills, chest pain, shortness of breath, headache, dizziness, vision changes, weakness. Onset (ago): hour(s) (3) Related Data Previous Rx's Medication Instructions Recorded pyridoxine (vitamin B6) 100 mg 100 mg PO DAILY 90 days #90 tabs 03/24/21 tablet acetaminophen 500 mg tablet (Pain 500 mg PO Q8H PRN fever or pain 05/22/21 Reliever Extra Strength) #90 tabs amlodipine 5 mg tablet 5 mg PO DAILY 90 days #90 tabs 05/22/21 cyclobenzaprine 5 mg tablet 5 mg PO BEDTIME 15 days #15 tabs 05/22/21 ibuprofen 800 mg tablet 800 mg PO TID PRN pain 30 days #90 05/22/21 tabs cholecalciferol (vitamin D3) 50 50 mcg PO DAILY #30 caps 07/21/21 mcg (2,000 unit) capsule levofloxacin 500 mg tablet 500 mg PO DAILY #9 tabs 07/26/21 phenazopyridine 100 mg tablet 100 mg PO TID 6 doses #6 tabs 07/26/21 naproxen 500 mg tablet (Naprosyn) 500 mg PO BID PRN pain 2 weeks #28 07/28/21 tabs levofloxacin 500 mg tablet 500 mg PO DAILY 7 days #7 tabs 08/06/21 oxycodone 5 mg tablet 5 mg PO Q8H PRN pain #20 tabs 08/06/21 hydrocortisone 2.5 % topical cream 1 appl GA BID-QID PRN hemorrhoids 09/28/21 with perineal applicator #30 grams (Proctosol HC) morphine 15 mg immediate release 15 mg PO TID PRN pain #12 tabs 10/05/21 tablet ondansetron 4 mg disintegrating 4 mg PO Q8H PRN nausea and 10/05/21 tablet vomiting #20 tabs lidocaine 5 % topical patch 1 patch topical DAILY 15 days #15 10/07/21 (Lidoderm) ea oxycodone 5 mg tablet 5 mg PO BID PRN pain #14 tabs 10/20/21 fluconazole 150 mg tablet 150 mg PO DAILY #1 tab 11/04/21 (Diflucan) lorazepam 0.5 mg tablet 0.5 mg PO TID PRN anxiety 30 days 11/05/21 #90 tabs fluconazole 150 mg tablet 150 mg PO Q3D 2 doses #2 tabs 11/06/21 metronidazole 500 mg tablet 500 mg PO BID 7 days #14 tabs 11/06/21 Allergies Allergy/AdvReac Type Severity Reaction Status Date / Time celecoxib [From Celebrex] Allergy Intermediate ITCHING Verified 11/25/21 14:01 Effexor Allergy Unknown itching Verified 11/25/21 14:01 metronidazole Allergy Unknown rash Verified 11/25/21 14:01 sertraline [Zoloft] Allergy Unknown itching Verified 11/25/21 14:01 Sulfa (Sulfonamide Allergy Unknown unknown, Verified 11/25/21 14:01 Antibiotics) yeast infection sulfamethoxazole Allergy Unknown ITCHING Verified 11/25/21 14:01 [From BACTRIM] trimethoprim [From BACTRIM] Allergy Unknown ITCHING Verified 11/25/21 14:01 tramadol AdvReac Intermediate Nausea Verified 11/25/21 14:01 alprazolam [From XANAX] AdvReac Mild CONFUSION Verified 11/25/21 14:01 Review of Systems Review of Systems: Constitutional : No Fever, No Chills ENT/Mouth : No sore throat Eyes: No Eye Pain, No Swelling, No Redness Cardiovascular : No Chest Pain, No SOB Respiratory : No Cough, No Sputum, No Wheezing Gastrointestinal : positive Nausea, positive Vomiting, No Diarrhea, positive abdominal pain Genitourinary : No Dysuria, No urinary frequency, positive Hematuria, positive Flank Pain, No hesitancy Musculoskeletal : No joint pain, No Myalgias Skin : No Skin Lesions, No rash Neuro : No Weakness, No Numbness, No Headache All other systems reviewed and are negative Yes all other systems are reviewed and are negative PMFSH Past Medical History Attestation statement: The following information was validated with the patient. Source: old records reviewed and nursing notes reviewed Medical History Anxiety Benign essential hypertension Gestational HTN Horseshoe kidney Lumbar degenerative disc disease Obesity (BMI 30-39.9) Pyelonephritis Renal calculi Surgical History Back pain with history of spinal surgery H/O wrist surgery History of extraction of renal calculus Family History Family History Father HIV (human immunodeficiency virus infection) Mother CVD (cardiovascular disease) Maternal Grandmother Breast cancer Diabetes Hypertension Maternal Grandfather Prostate cancer Paternal Grandmother CVD (cardiovascular disease) Paternal Grandfather Prostate cancer Sister In good health Son In good health Social History Social History Household Members: Spouse Housing: Apartment Are you a primary child care supervisor to a significant other at home: No Do you presently have visiting nurse or other home services: No Alcohol intake: current Alcohol intake frequency: holidays/special occasions only Patient Tobacco Use Status: Never used Tobacco Smoked in Last 30 Days: No e-Cigarette/Vaping Use: Never Used Second Hand Smoke Exposure: No Use of substances other than those prescribed or required for medical reasons: No Advance Directives: No Advance Directives Information Provided: No service: Yes (ACTIVE) Current occupational status: employed Cognitive needs: No Hearing needs: No Vision needs: No Physical Exam ED Vital Signs: Vital Signs - 24 hr 11/25/21 13:59 11/25/21 16:53 Temperature 98.2 F Pulse Rate 83 66 Respiratory Rate 18 20 Blood Pressure 153/90 H 135/79 Pulse Oximetry 97 99 Oxygen Delivery Method Room Air Room Air BMI result Body Mass Index 30.9 vss Appearance: Alert.? Oriented X3.? No acute distress.? Head: Normocephalic, atraumatic, no step-offs or deformities Eyes: Pupils equal, round and reactive to light.? ENT: Pharynx normal.? Neck: Normal inspection.? Neck supple.? CVS: Normal heart rate and rhythm.? Pulses normal.? Respiratory: No respiratory distress.? Breath sounds normal.? Abdomen: Soft and nontender.? Skin: Skin warm and dry.? Normal skin color.? Normal skin turgor.? Extremities: No lower extremity edema.? No calf ttp. 5/5 strength to bilateral upper and lower extremities Back: No midline tenderness, no C-spine tenderness, full range of motion, significant right-sided CVA tenderness. Negative on the left. Neuro: Oriented X 3.? No motor deficit.? No sensory deficit. CN 2-12 intact Course Reevaluation(s) Reevaluation #1: CBC within normal limits, chemistry with no acute electrolyte abnormalities. Urine with positive leukocytes and red blood cells, concerning for possible infection given patient's history and physical, will cover with ceftriaxone as patient has had E coli positive urine in the past. Time: 15:53 Reevaluation #2: Renal ultrasound showing right-sided hydronephrosis, and normal appearing bladder. Time: 18:05 Reevaluation #3: Discussed this case with Dr. Addison who tells me patient will likely need stent tomorrow. Time: 18:33 Additional Reevaluation(s): Ricardat will be admitted to the hospital for further evaluation and tx of hyd ronephrosis, uti and reccurent stones. Medical Decision Making MDM Narrative Medical decision making narrative: [id number] 41-year-old female history of recurrent kidney stones presents with severe right-sided flank pain, hematuria, nausea that started suddenly a few hours ago. Physical examination patient appears uncomfortable, with significant right- sided CVA tenderness. Regular rate and rhythm, lungs clear, abdomen soft nontender nondistended. Neuro nonfocal. Vital signs are stable. Plan at this time is to obtain basic labs, urine, ultrasound of the kidney, ureter and bladder. When I do a CT scan at this time is patient has had many CT scans in the past therefore will try to limit radiation exposure. Medical Records Medical records reviewed: Yes I reviewed the patient's medical records. Lab Data Lab results reviewed: Yes I reviewed the patient's lab results. Result diagrams: 11/25/21 14:33 11/25/21 14:33 Labs: Lab Results 11/25/21 11/25/21 11/25/21 Range/Units 14:33 14:33 14:39 WBC 10.2 (4.8-10.8) X10*3/uL RBC 4.93 (4.20-5.50) X10*6/uL Hgb 14.6 (12.0-16.0) g/dl Hct 45.0 (37.0-47.0) % MCV 91.3 (80.0-98.0) fL MCH 29.6 (27.0-33.0) pg MCHC 32.4 (31.0-35.0) g/dl RDW 12.4 (11.0-16.0) % Plt Count 362 (160-400) X10*3/uL MPV 10.6 (9.4-12.3) fL Immature Gran % (Auto) 0.2 (0.0-0.4) % Neut % (Auto) 65.8 (45-73) % Lymph % (Auto) 26.4 (20-40) % [place] % (Auto) 5.5 (2-11) % Eos % (Auto) 1.6 (0-4) % Baso % (Auto) 0.5 (0-2) % Lymph # (Auto) 2.7 (1.2-4.9) X10*3/uL [place] # (Auto) 0.6 (0.1-1.2) X10*3/uL Eos # (Auto) 0.2 (0.0-0.4) X10*3/uL Baso # (Auto) 0.1 (0.0-0.2) X10*3/uL Abs Immat Gran (auto) 0.02 (0.00-0.03) X10*3/uL Absolute Neuts (auto) 6.7 (2.0-8.3) x10*3/uL Absolute Nucleated RBC 0.000 (0.0-0.012) X10*3/uL Nucleated RBC % (auto) 0.0 (0.0-0.2) /100WBC Sodium 141 (135-145) mmol/L Potassium 3.7 (3.3-5.1) mmol/L Chloride 104 (96-108) mmol/L Carbon Dioxide 27 (22-29) mmol/L Anion Gap 14 (12-20) BUN 10 (9-16) mg/dL Creatinine 0.80 (0.5-1.4) mg/dL Estim Creat Clear Calc 100.7 Estimated GFR > 60 Random Glucose 159 H (60-115) mg/dL Calcium 8.9 (8.4-10.2) mg/dL Urine Color Yellow Urine Appearance Cloudy Urine pH 8.0 (5.0-9.0) Ur Specific [place] 1.015 (1.005-1.025) Urine Protein Trace (Neg-Trace) mg/dL Urine Glucose (UA) Negative (Negative) mg/dL Urine Ketones Negative (Negative) mg/dL Urine Blood Moderate (2+) H (Negative) Urine Nitrite Negative (Negative) Ur Leukocyte Esterase Large (3+) H (Negative) Urine RBC 3-5 H (0-2) /HPF Urine WBC >50 H (0-5) /HPF Ur Squamous Epith Cells >20 (0-2) /HPF Urine Bacteria 1+ (None Seen) Hyaline Casts 0-2 (0-2) /LPF Critical Care Time Critical Care Time Critical Care Time: Yes Total Critical Care Time: 35 Attestation: I attest to this time spent taking care of the patient, obtaining history, physical, reviewing labs, imaging, speaking to my attending, speaking to specialist. Discharge Plan Discharge Clinical Impression: UTI (urinary tract infection), Recurrent kidney stones, Hydronephrosis Patient Disposition: Admitted As Inpatient Prescriptions: No Action acetaminophen [Pain Reliever Extra Strength] 500 mg tablet 500 mg PO Q8H PRN (Reason: fever or pain) Qty: 90 0RF amlodipine 5 mg tablet 5 mg PO DAILY 90 Days Qty: 90 1RF cyclobenzaprine 5 mg tablet 5 mg PO BEDTIME 15 Days Qty: 15 0RF ibuprofen 800 mg tablet 800 mg PO TID PRN (Reason: pain) 30 Days Qty: 90 2RF Rx Instructions: Take with food cholecalciferol (vitamin D3) 50 mcg (2,000 unit) capsule 50 mcg PO DAILY Qty: 30 0RF naproxen [Naprosyn] 500 mg tablet 500 mg PO BID PRN (Reason: pain) 14 Days Qty: 28 0RF hydrocortisone [Proctosol HC] 2.5 % cream with perineal applicator 1 appl GA BID-QID PRN (Reason: hemorrhoids) Qty: 30 0RF lidocaine [Lidoderm] 5 % adhesive patch,medicated 1 patch topical DAILY 15 Days Qty: 15 0RF Rx Instructions: leave on most painful area for up to 12 hrs lorazepam 0.5 mg tablet 0.5 mg PO TID PRN (Reason: anxiety) 30 Days Qty: 90 0RF metronidazole 500 mg tablet 500 mg PO BID 7 Days Qty: 14 0RF fluconazole 150 mg tablet 150 mg PO Q3D 0 Days Qty: 2 0RF levofloxacin 500 mg tablet 500 mg PO DAILY Qty: 9 0RF phenazopyridine 100 mg tablet 100 mg PO TID Qty: 6 0RF oxycodone 5 mg tablet 5 mg PO BID PRN (Reason: pain) Qty: 14 0RF morphine 15 mg tablet 15 mg PO TID PRN (Reason: pain) Qty: 12 0RF Rx Instructions: partial fill okay; Partial Fill upon patient request. ondansetron 4 mg tablet,disintegrating 4 mg PO Q8H PRN (Reason: nausea and vomiting) Qty: 20 0RF fluconazole [Diflucan] 150 mg tablet 150 mg PO DAILY Qty: 1 0RF pyridoxine (vitamin B6) 100 mg tablet 100 mg PO DAILY 90 Days Qty: 90 1RF levofloxacin 500 mg tablet 500 mg PO DAILY 7 Days Qty: 7 0RF oxycodone 5 mg tablet 5 mg PO Q8H PRN (Reason: pain) Qty: 20 0RF
[2021-11-25] MEDS: ondansetron HCL 4 MG/2 ML VIAL IVPUSH (16:13)
[2021-11-25] MEDS: cefTRIAXone sodium 1 GM in 0.9 % Sodium Chloride 50 ML IV (16:14)
[2021-11-25] MEDS: HYDROmorphone HCl 0.5 MG/0.5 ML SYRINGE IVPUSH (16:14)
[2021-11-25] MEDS: 0.9 % Sodium Chloride 1,000 ML 999 ML IV (16:52)
[2021-11-25 16:53] VITALS: BP 135/79; PULSE 66; RESP 20; O2SAT 99
--- NOTE | 2021-11-25 17:03 | PC.NURSE ---
pt resting in bed with lights dimmed. pt ambulated independently to restroom. pt medicated according to MAR. reports pain is down from 10/10 pain to 5/10 pain. pt provided with ice chips per request
[2021-11-25] MEDS: Morphine Sulfate 4 MG/ML CARTRIDGE IVPUSH (18:39)
--- NOTE | 2021-11-25 19:55 | PHA.MEDREC ---
Pharmacy Consult ? Medication Reconciliation Pharmacy has completed the medication reconciliation.
--- NOTE | 2021-11-25 20:26 | P.HPHOSP_ITS ---
History of Present Illness Date of Service: 11/25/21 <CLAY Ames - Last Filed: 11/25/21 20:40> Attending physician on admission: Stefanie Vitale <CLAY Ames - Last Filed: 11/25/21 20:40> Chief Complaint: right flank pain <CLAY Ames - Last Filed: 11/25/21 20:40> 41 year old female with hypertension, horseshoe kidney, h/o nephrolithiasis with history of stenting and lithotripsy followed by Dr. Addison, and anxiety presents to the ED earlier today with severe right flank pain that started around 130pm. States felt consistent with typical stones. There has been nausea without vomiting. CT was deferred in ED due to number of CT scans that have already been performed on pt this year. Reanl and bladder u/s showed right-sided hydronephrosis with normal appearing bladder. UA showed 3+ leuks, 2+ blood, and 1+ bacteria, neg nitrites. No leukocytosis. Renal function stable. Vitals stable. Dr. Addison consulted by ED and plans for stenting tomorrow. <CLAY Ames - Last Filed: 11/25/21 20:40> Review of Systems Review of Systems: General: No fevers, malaise, unintentional weight loss Cardiovascular: No chest pain, palpitations, or leg edema Respiratory: No shortness of breath, wheezing, cough GI: + nausea. No abdominal pain, vomiting, diarrhea, constipation, melena, hematochezia : +right flank pain. No dysuria, hematuria, increased frequency Neuro: No headaches, weakness, paresthesias Skin: No rashes or lesions <CLAY Ames - Last Filed: 11/25/21 20:40> [facility] Medical History: Medical History Anxiety Benign essential hypertension Gestational HTN Horseshoe kidney Lumbar degenerative disc disease Obesity (BMI 30-39.9) Pyelonephritis Renal calculi <CLAY Ames Last Filed: 11/25/21 20:40> Family History: Family History Father HIV (human immunodeficiency virus infection) Mother CVD (cardiovascular disease) Maternal Grandmother Breast cancer Diabetes Hypertension Maternal Grandfather Prostate cancer Paternal Grandmother CVD (cardiovascular disease) Paternal Grandfather Prostate cancer Sister In good health Son In good health <CLAY Ames - Last Filed: 11/25/21 20:40> Surgical History: Surgical History Back pain with history of spinal surgery H/O wrist surgery History of extraction of renal calculus <CLAY Ames - Last Filed: 11/25/21 20:40> Social History: Social History Household Members: Spouse Housing: Apartment Are you a primary healthcare insurance sales agent to a significant other at home: No Do you presently have visiting nurse or other home services: No Alcohol intake: current Alcohol intake frequency: holidays/special occasions only Patient Tobacco Use Status: Never used Tobacco Smoked in Last 30 Days: No e-Cigarette/Vaping Use: Never Used Second Hand Smoke Exposure: No Use of substances other than those prescribed or required for medical reasons: No Advance Directives: No Advance Directives Information Provided: No service: Yes (ACTIVE) Current occupational status: employed Cognitive needs: No Hearing needs: No Vision needs: No <CLAY Ames - Last Filed: 11/25/21 20:40> Meds Allergies/Adverse reactions: Allergies Allergy/AdvReac Type Severity Reaction Status Date / Time celecoxib [From Celebrex] Allergy Intermediate ITCHING Verified 11/25/21 14:01 Effexor Allergy Unknown itching Verified 11/25/21 14:01 metronidazole Allergy Unknown rash Verified 11/25/21 14:01 sertraline [Zoloft] Allergy Unknown itching Verified 11/25/21 14:01 Sulfa (Sulfonamide Allergy Unknown unknown, Verified 11/25/21 14:01 Antibiotics) yeast infection sulfamethoxazole Allergy Unknown ITCHING Verified 11/25/21 14:01 [From BACTRIM] trimethoprim [From BACTRIM] Allergy Unknown ITCHING Verified 11/25/21 14:01 tramadol AdvReac Intermediate Nausea Verified 11/25/21 14:01 alprazolam [From XANAX] AdvReac Mild CONFUSION Verified 11/25/21 14:01 <CLAY Ames - Last Filed: 11/25/21 20:40> Active Medications: Current Medications Acetaminophen (Acetaminophen 325 Mg Tablet) 650 mg PO Q6H PRN PRN Reason: Pain, Mild (Pain Scale 1-3) Enoxaparin Sodium (Enoxaparin Sodium 40 Mg/0.4 Ml Syringe) 40 mg SUBCUT Q24H TONA Sodium Chloride (0.9 % Sodium Chloride Flush 3 Ml Syringe) 3 ml IVFLUSH QSHIFT TONA <CLAY Ames - Last Filed: 11/25/21 20:40> Home medications: Home Medications Medication Instructions Recorded Confirmed Last Taken Type ibuprofen 800 mg tablet 800 mg PO DAILY PRN pain 11/25/21 11/25/21 11/23/21 History lidocaine 5 % topical patch 1 patch topical DAILY PRN Pain 11/25/21 11/25/21 11/25/21 History (Lidoderm) <CLAY Ames - Last Filed: 11/25/21 20:40> Physical Exam Vital Signs and Narrative: Vital Signs: Last Vital Signs Temp 98.2 F 11/25/21 13:59 Pulse 66 11/25/21 16:53 Resp 20 11/25/21 16:53 BP 135/79 11/25/21 16:53 Pulse Ox 99 11/25/21 16:53 O2 Del Method 11/25/21 16:53 BMI result Body Mass Index 30.9 <CLAY Ames - Last Filed: 11/25/21 20:40> Constitutional - Awake and Alert, No apparent distress Eyes - PERRLA, EOMI Cardiovascular - S1S2, RRR, No edema Respiratory - Normal lung expansion, Normal respiratory effort, No respiratory distress, CTA bilaterally Gastrointestinal - RLQ pain. ND; +BS; No rebound or guarding - Right sided CVA tenderness Extremities - no calf tenderness bilaterally, no swelling Skin - Warm/Dry Neurological - Alert & oriented x3, No focal deficit Psychological - Appropriate affect <CLAY Ames - Last Filed: 11/25/21 20:40> Results Labs CBC and Chem 7: : 11/25/21 14:33 11/25/21 14:33 <CLAY Ames - Last Filed: 11/25/21 20:40> Labs: Laboratory Results - last 24 hr 11/25/21 11/25/21 11/25/21 14:33 14:33 14:39 MCV 91.3 MCH 29.6 MCHC 32.4 RDW 12.4 Plt Count 362 MPV 10.6 Immature Gran % (Auto) 0.2 Neut % (Auto) 65.8 Lymph % (Auto) 26.4 [place] % (Auto) 5.5 Eos % (Auto) 1.6 Baso % (Auto) 0.5 Lymph # (Auto) 2.7 [place] # (Auto) 0.6 Eos # (Auto) 0.2 Baso # (Auto) 0.1 Abs Immat Gran (auto) 0.02 Absolute Neuts (auto) 6.7 Absolute Nucleated RBC 0.000 Nucleated RBC % (auto) 0.0 Anion Gap 14 Estim Creat Clear Calc 100.7 Estimated GFR > 60 Random Glucose 159 H Calcium 8.9 Urine Color Yellow Urine Appearance Cloudy Urine pH 8.0 Ur Specific [place] 1.015 Urine Protein Trace Urine Glucose (UA) Negative Urine Ketones Negative Urine Blood Moderate (2+) H Urine Nitrite Negative Ur Leukocyte Esterase Large (3+) H Urine RBC 3-5 H Urine WBC >50 H Ur Squamous Epith Cells >20 Urine Bacteria 1+ Hyaline Casts 0-2 <CLAY Ames - Last Filed: 11/25/21 20:40> Imaging Radiologist's Impressions: Impressions Bladder Ultrasound 11/25/21 16:45 IMPRESSION: 1. Right-sided hydronephrosis. 2. Normal-appearing bladder. Renal Ultrasound 11/25/21 16:45 IMPRESSION: 1. Right-sided hydronephrosis. 2. Normal-appearing bladder. <CLAY Ames - Last Filed: 11/25/21 20:40> Assessment and Plan (1) Hydronephrosis: Status: Acute <CLAY Ames - Last Filed: 11/25/21 20:40> (2) UTI (urinary tract infection): Status: Acute <CLAY Ames - Last Filed: 11/25/21 20:40> 41 year old female with hypertension, horseshoe kidney, h/o nephrolithiasis with history of stenting and lithotripsy followed by Dr. Addison, and anxiety to be observed for UTI and hydronephrosis right kidney. 1- Hydronephrosis right kidney likely secondary to obstructing renal stone not visualized on renal u/s -ED consulted Dr. Addison who plans on stenting tomorrow. Pt is apprehensive about procedure with Dr. Addison tomorrow and will discuss further with her tonight before making a decision on how to proceed with regard to surgery. -Monitor I&O -Treat UTI per below -IVF -Pain control with oxycodone and dilaudid per pain scale 2- Acute UTI -UA with 3+ leuks, 2+ blood, 1+ bacteria, nitrite neg -Continue IV ceftriaxone 3-HTN- controlled -Continue amlodipine 5mg -MOnitor BPs 4-Anxiety -Continue lorazepam prn DVt prophylaxis- lovenox Full code <CLAY Ames - Last Filed: 11/25/21 20:40> 41 year old female with hypertension, horseshoe kidney, h/o nephrolithiasis with history of stenting and lithotripsy followed by Dr. Addison, and anxiety to be observed for UTI and hydronephrosis right kidney. 1- Hydronephrosis right kidney likely secondary to obstructing renal stone not visualized on renal u/s -ED consulted Dr. Addison who plans on stenting tomorrow. Pt is apprehensive about procedure with Dr. Addison tomorrow and will discuss further with her tonight before making a decision on how to proceed with regard to surgery. -Monitor I&O -Treat UTI per below -IVF -Pain control with oxycodone and dilaudid per pain scale 2- Acute UTI -UA with 3+ leuks, 2+ blood, 1+ bacteria, nitrite neg -Continue IV ceftriaxone 3-HTN- controlled -Continue amlodipine 5mg -MOnitor BPs 4-Anxiety -Continue lorazepam prn Full code <Stefanie Vitale MD - Last Filed: 11/25/21 21:30> Quality Stroke Does the patient have a stroke diagnosis?: No <CLAY Ames - Last Filed: 11/25/21 20:40> VTE Prior VTE?: No <CLAY Ames - Last Filed: 11/25/21 20:40> VTE Risk Level:: Medical - moderate - high <CLAY Ames - Last Filed: 11/25/21 20:40> VTE Device Contraindication: Treatment Not Indicated <CLAY Ames - Last Filed: 11/25/21 20:40> VTE Drug Contraindication: N/A - Med Ordered <CLAY Ames - Last Filed: 11/25/21 20:40>
[2021-11-25] MEDS: Enoxaparin Sodium 40 MG/0.4 ML SYRINGE SUBCUT (20:40)
[2021-11-25] MEDS: 0.9 % Sodium Chloride 1,000 ML 100 ML IVCONT (20:51)
[2021-11-25 22:51] VITALS: BP 123/71; PULSE 68; RESP 16; TEMP 36.9; O2SAT 98
[2021-11-25] MEDS: oxyCODONE HCl Immed Release 5 MG TABLET PO (22:58)
[2021-11-25] MEDS: Acetaminophen 325 MG TABLET 650 MG PO (22:58)
--- NOTE | 2021-11-25 23:25 | MHC.CM.PN ---
KORI 11/25. Met with pt assigned to Observation with bed assignment pending. Pt has UTI, Renal calculi and hydronephrosis. ? stent in the am. Pt expressed concerns regarding stent placement by Dr. Addison to Hospitalist, Dr. Barr and to this CM. Pt was offered to be transferred to [facility], but refused. Pt and considering stent placement d/t pain. Pt lives with , Lala Mcdermott ([phone]). No HCP on file. Education provided, pt declines to complete at this time. Pt is an employee of [employer]. Pt uses no DME/services. [employer]. Pt is member of [employer]. D/C plan: home without services. will transport. Contact card given. CM will follow for d/c needs.
[2021-11-26] VITALS (7 sets, daily range): BP systolic 104–146; BP diastolic 63–86; PULSE 56–77; RESP 10–16; TEMP 36.1–36.4; O2SAT 95–98
[2021-11-26] MEDS: 0.9 % Sodium Chloride Flush 3 ML SYRINGE IVFLUSH ×2 (00:51→09:17)
--- NOTE | 2021-11-26 09:32 | PC.NURSE ---
patient a/ox4 . dayamirla . heart rate regular at 70 beats . lungs clear . skin pink warm and dry . c/o flank pain and her abdomen is soft with rebound tenderness noted in right side . positive bowel sounds noted in all four quadrants . Dr Morelia Gurrola contacted for time frame for stent placement . patient remains NPO . patient aware of plan of care .
[2021-11-26] MEDS: 0.9 % Sodium Chloride 1,000 ML 100 ML IVCONT (10:20)
[2021-11-26 10:30] LABS: COVID-19 Test Negative (Negative); IDNOW Serial# 9DB6401D
[2021-11-26] MEDS: HYDROmorphone HCl 1 MG/ML SYRINGE 0.5 MG IVPUSH ×2 (12:47→16:33)
[2021-11-26] MEDS: ondansetron HCL 4 MG/2 ML VIAL IVPUSH (12:47)
--- NOTE | 2021-11-26 12:52 | PC.NURSE ---
patient reports pain level 10/10 medicated with diliuded and zofran for pain . DR Morelia Gurrola at bedside patient to go for procedure around 430 . patient aware of plan of care .
--- NOTE | 2021-11-26 13:41 | PC.NURSE ---
rn to rn report given to gabby pt aware of plan of care for transfer to overflow unit. rn to rn report also given to des in sss. pt aware of plan of care for surgery later this afternoon.
[2021-11-26 14:40] LABS: Urine Pregnancy NEGATIVE (NEGATIVE)
--- NOTE | 2021-11-26 14:40 | HO.PM.IMPN ---
Subjective Subjective Date of Service: 11/26/21 Interval History: complaining of right flank pain, denies fever chills, no lightheadedness, no dizziness nausea has resolved, patient denies urinary symptoms of urgency or frequency, patient is NPO for cystoscopy stone removal and stent placement by Dr. Addison. Review of Systems Review of Systems: Yes all other systems are reviewed and are negative Physical Exam Vital Signs: Vital Signs: Last Vital Signs Temp 97.5 F 11/26/21 10:41 Pulse 56 11/26/21 10:41 Resp 13 11/26/21 10:41 BP 104/63 11/26/21 10:41 Pulse Ox 98 11/26/21 10:41 O2 Del Method 11/26/21 10:41 BMI result Body Mass Index 30.9 Const: Other: General patient awake alert, no acute distress. Neck supple no JVD. CVS regular rate rhythm, Respiratory lungs clear to auscultation, no respiratory distress, no wheeze, no rhonchi. Gastrointestinal abdomen soft, right flank tenderness, bowel sounds audible, no guarding , no rigidity. Extremities no edema. back no CVA tenderness Neuro nonfocal Skin no rash psych appropriate affect Objective Data Active Medications Acetaminophen (Acetaminophen 325 Mg Tablet) 650 mg PO Q6H PRN PRN Reason: Pain, Mild (Pain Scale 1-3) Last Admin: 11/25/21 22:58 Dose: 650 mg Documented By: ELIAZAR Amlodipine Besylate (Amlodipine Besylate 5 Mg Tablet) 5 mg PO DAILY TONA; Protocol Last Admin: 11/26/21 09:18 Dose: Not Given Documented By: LEVY Non-Admin Reason: NPO Docusate Sodium (Docusate Sodium 100 Mg Capsule) 100 mg PO DAILY PRN PRN Reason: Constipation Hydromorphone HCl (Hydromorphone Hcl 1 Mg/Ml Syringe) 0.5 mg IVPUSH Q4H PRN; Protocol PRN Reason: Pain, Severe (Pain Scale 7-10) Last Admin: 11/26/21 12:47 Dose: 0.5 mg Documented By: LEVY Ceftriaxone Sodium 1 gm/ (Sodium Chloride) 50 mls @ 100 mls/hr IV Q24H TONA Sodium Chloride (Ns) 1,000 mls @ 100 mls/hr IVCONT .Q10H TONA Last Admin: 11/26/21 10:20 Dose: 100 mls/hr Documented By: LEVY Lidocaine (Lidocaine 4 % Patch Adh..Patch) 1 patch TRANSDERMA DAILY PRN PRN Reason: Pain Lorazepam (Lorazepam 0.5 Mg Tablet) 0.5 mg PO TID PRN PRN Reason: anxiety Ondansetron HCl (Ondansetron Hcl 4 Mg/2 Ml Vial) 4 mg IVPUSH Q8H PRN PRN Reason: Nausea and Vomiting Last Admin: 11/26/21 12:47 Dose: 4 mg Documented By: LEVY Oxycodone HCl (Oxycodone Hcl Immed Release 5 Mg Tablet) 5 mg PO Q6H PRN PRN Reason: Pain, Moderate (Pain Scale 4-6 Last Admin: 11/25/21 22:58 Dose: 5 mg Documented By: ELIAZAR Pyridoxine HCl (Pyridoxine Hcl (Vitamin B6) 50 Mg Tablet) 100 mg PO DAILY [facility]END[facility] S[facility] TO [facility] Last Admin: 11/26/21 09:18 Dose: Not Given Documented By: LEVY Non-Admin Reason: Medication Discontinued Sodium Chloride (0.9 % Sodium Chloride Flush 3 Ml Syringe) 3 ml IVFLUSH QSHIFT [facility]END[facility] TO [facility] Last Admin: 11/26/21 09:17 Dose: 3 ml Documented By: LEVY Labs CBC & Chem 7: 11/25/21 14:33 11/25/21 14:33 Labs: Laboratory Results - last 24 hr 11/25/21 11/25/21 11/25/21 14:33 14:33 14:39 MCV 91.3 MCH 29.6 MCHC 32.4 RDW 12.4 Plt Count 362 MPV 10.6 Immature Gran % (Auto) 0.2 Neut % (Auto) 65.8 Lymph % (Auto) 26.4 [place] % (Auto) 5.5 Eos % (Auto) 1.6 Baso % (Auto) 0.5 Lymph # (Auto) 2.7 [place] # (Auto) 0.6 Eos # (Auto) 0.2 Baso # (Auto) 0.1 Abs Immat Gran (auto) 0.02 Absolute Neuts (auto) 6.7 Absolute Nucleated RBC 0.000 Nucleated RBC % (auto) 0.0 Anion Gap 14 Estim Creat Clear Calc 100.7 Estimated GFR > 60 Random Glucose 159 H Calcium 8.9 Urine Color Yellow Urine Appearance Cloudy Urine pH 8.0 Ur Specific [place] 1.015 Urine Protein Trace Urine Glucose (UA) Negative Urine Ketones Negative Urine Blood Moderate (2+) H Urine Nitrite Negative Ur Leukocyte Esterase Large (3+) H Urine RBC 3-5 H Urine WBC >50 H Ur Squamous Epith Cells >20 Urine Bacteria 1+ Hyaline Casts 0-2 COVID-19 (JERRELL) COVID-19 Clin Com 11/26/21 10:03 MCV MCH MCHC RDW Plt Count MPV Immature Gran % (Auto) Neut % (Auto) Lymph % (Auto) [place] % (Auto) Eos % (Auto) Baso % (Auto) Lymph # (Auto) [place] # (Auto) Eos # (Auto) Baso # (Auto) Abs Immat Gran (auto) Absolute Neuts (auto) Absolute Nucleated RBC Nucleated RBC % (auto) Anion Gap Estim Creat Clear Calc Estimated GFR Random Glucose Calcium Urine Color Urine Appearance Urine pH Ur Specific [place] Urine Protein Urine Glucose (UA) Urine Ketones Urine Blood Urine Nitrite Ur Leukocyte Esterase Urine RBC Urine WBC Ur Squamous Epith Cells Urine Bacteria Hyaline Casts COVID-19 (JERRELL) Negative COVID-19 Clin Com See Note Microbiology Microbiology Results: Microbiology 11/25/21 15:39 Urine Culture - Preliminary Urine clean catch - Urine cabrera top Culture too young to evaluate. Assessment and Plan (1) Renal calculi: Status: Acute (2) UTI (urinary tract infection): Status: Acute Plan 41 year old female with hypertension, horseshoe kidney, h/o nephrolithiasis with history of stenting and lithotripsy followed by Dr. Addison, and anxiety to be observed for UTI and hydronephrosis right kidney. 1- right Hydronephrosis likely secondary to obstructing renal stone not visualized on renal u/s - continue NPO / IV fluids await Urology consult for cystoscopy and stent placement Pain control with oxycodone and dilaudid per pain scale 2- Acute UTI -UA with 3+ leuks, 2+ blood, 1+ bacteria, nitrite neg - follow urine culture,Continue IV ceftriaxone 3-HTN- controlled -Continue amlodipine 5mg 4-Anxiety -Continue lorazepam prn DVt prophylaxis- lovenox Full code patient need continued inpatient hospitalization for cystoscopy and stent placement for right flank pain due to renal calculi with hydronephrosis and UTI Quality Stroke Does the patient have a stroke diagnosis?: No VTE Prior VTE?: No VTE Risk Level:: Medical - moderate - high VTE Device Contraindication: Treatment Not Indicated VTE Drug Contraindication: N/A - Med Ordered
[2021-11-26 14:41] LABS: UPreg QC Valid YES
--- NOTE | 2021-11-26 16:29 | PM.DS ---
DS: Providers Provider Date of Service: 11/26/21 Date of admission: 11/26/21 09:26 Primary care physician: Elier Olmstead MD Consults: 11/25/21 19:19 Consult to Urology Stat Consulting Provider: Jose Alfredo Addison Reason for consultation: Recurrent stones DS: Diagnosis Discharge Diagnosis (1) Hydronephrosis: Status: Acute DS: Summary Hospital Course Hospital Course: history of presenting illness Chief complaint right flank pain 41 year old female with hypertension, horseshoe kidney, h/o nephrolithiasis with history of stenting and lithotripsy followed by Dr. Addison, and anxiety presents to the ED earlier today with severe right flank pain that started around 130pm. States felt consistent with typical stones. There has been nausea without vomiting. CT was deferred in ED due to number of CT scans that have already been performed on pt this year. Reanl and bladder u/s showed right-sided hydronephrosis with normal appearing bladder. UA showed 3+ leuks, 2+ blood, and 1+ bacteria, neg nitrites. No leukocytosis. Renal function stable. Vitals stable. Dr. Addison consulted by ED and plans for stenting tomorrow.?? hospital course 41 year old female with hypertension, horseshoe kidney, h/o nephrolithiasis with history of stenting and lithotripsy followed by Dr. Addison, and anxiety to be observed for UTI and hydronephrosis right kidney. 1- right Hydronephrosis likely secondary to obstructing renal stone not visualized on renal u/s, patient admitted to medical floor was treated with IV fluids pain medication and subsequently seen by Dr. Addison who performed retrograde cystoscopy with dilatation of ureteric orifice under fluoroscopy, right ureteroscopy laser lithotripsy stone basketing and right stent placement postprocedure patient was noted to be doing fine therefore discharged home by Dr. Addison. 2- Acute UTI -UA with 3+ leuks, 2+ blood, 1+ bacteria, nitrite neg , patient being discharged home on Levaquin 3-HTN- controlled, Continue amlodipine 5mg 4-Anxiety Continue lorazepam prn Time Spent with Patient Time attestation: Total time spent providing and/or coordinating discharge services: Discharge coordination time: Greater than 30 minutes Quality: Safe Use of Opioids Does Pt have an Active Cancer Diagnosis on the Problem List?: No Quality: Stroke Does the patient have a stroke diagnosis?: No Physical Exam Vital Signs: Vital Signs: Last Vital Signs Temp 97.2 F 11/26/21 20:00 Pulse 64 11/26/21 20:15 Resp 16 11/26/21 20:15 BP 126/71 11/26/21 20:15 Pulse Ox 96 11/26/21 20:15 O2 Del Method 11/26/21 20:15 BMI result Body Mass Index 30.9 Const: Other: General? patient awake alert, no acute distress.? Neck? supple no JVD. CVS? regular rate rhythm, Respiratory lungs clear to auscultation, no respiratory distress, no wheeze, no rhonchi. Gastrointestinal abdomen soft,mild right flank tenderness, bowel sounds audible, no guarding , no rigidity. Extremities no edema. back no CVA tenderness Neuro nonfocal Skin no rash psych appropriate affect DS: Data Data Completed and Pending Completed studies during hospitalization [Text1]: Procedures Dilation of Right Ureter with Intraluminal Device, Via Natural or Artificial Opening Endoscopic (11/26/21) Extirpation of Matter from Right Ureter, Via Natural or Artificial Opening Endoscopic (11/26/21) Fluoroscopy of Right Kidney, Ureter and Bladder (11/26/21) Discharge Plan Discharge Patient Disposition: Home, Self-Care Discharge Diagnosis: distal right ureteric stone Referrals: Elier Olmstead MD [Primary Care Provider] - None Jose Alfredo Addison MD [Physician] - 1 Week Discharge Medications: New phenazopyridine [Pyridium] 100 mg tablet 100 mg PO TID PRN (Reason: Spasm) 4 Days Qty: 12 0RF levofloxacin 500 mg tablet 500 mg PO DAILY Qty: 3 0RF Continued amlodipine 5 mg tablet 5 mg PO DAILY 90 Days Qty: 90 1RF lorazepam 0.5 mg tablet 0.5 mg PO TID PRN (Reason: anxiety) 30 Days Qty: 90 0RF oxycodone 5 mg tablet 5 mg PO BID PRN (Reason: pain) Qty: 14 0RF ibuprofen 800 mg tablet 800 mg PO DAILY PRN (Reason: pain) Rx Instructions: Take with food lidocaine [Lidoderm] 5 % adhesive patch,medicated 1 patch topical DAILY PRN (Reason: Pain) Rx Instructions: leave on most painful area for up to 12 hrs pyridoxine (vitamin B6) 100 mg tablet 100 mg PO DAILY 90 Days Qty: 90 1RF No Action metronidazole 500 mg tablet 500 mg PO BID fluconazole 150 mg tablet 150 mg PO Q3D Discharge Orders: Discharge Order (Routine); Ordered 11/26/21 Ordered By: Jose Alfredo Addison Diet: Advance to usual diet Activity on Discharge: As tolerated Stand Alone Forms: Patient Portal Discharge page Care Plan Goals: stones Health Concerns: stones Plan of Treatment: stones Assessment: stones Discharge Date/Time: 11/26/21 21:00
--- NOTE | 2021-11-26 17:08 | PC.NURSE ---
PATIENT LEFT TO OR AT THIS TIME VIA BED WITH DIRECTOR STRATEGIC ACCOUNT MANAGEMENT. REPORT GIVEN TO PACU, RN.
--- NOTE | 2021-11-26 17:23 | PM.UROCN ---
History of Present Illness Consult details Consult date: 11/26/21 Narrative: right hydronephrosis with dilated proximal right ureter Shirlene is a patient known to Urology Horse shoe kidney Has made stones and had small imbedded stone on right Intervention in November 2020 Presents with severe right-sided flank pain starting yesterday at approximately 13:30 Had been scheduled for procedure for small stone that had been seen on a prior ultrasound Pain has been managed in emergency room however she still has discomfort Creatinine stable 0.8 Ultrasound shows right hydronephrosis with dilated proximal right ureter Discussed plan for cystoscopy, right retrograde, right ureteroscopy and intervention is necessary based on findings She is amenable to this plan Review of Systems Constitutional: Constitutional: Reports as per HPI and Reports no additional constitutional complaints Cardiovascular: Cardiovascular: Reports as per HPI and Reports no additional cardiovascular complaints Respiratory: Respiratory: Reports as per HPI and Reports no additional respiratory complaints Gastrointestinal: Gastrointestinal: Reports as per HPI and Reports no additional gastrointestinal complaints Genitourinary: Genitourinary: Reports as per HPI Musculoskeletal: Musculoskeletal: Reports no additional musculoskeletal complaints and Reports as per HPI Neurologic: Reports system reviewed and no additional complaints, except as documented and Reports as per HPI [facility] Past Medical History Medical History Anxiety Benign essential hypertension Gestational HTN Horseshoe kidney Lumbar degenerative disc disease Obesity (BMI 30-39.9) Pyelonephritis Renal calculi Family History Family History Father HIV (human immunodeficiency virus infection) Mother CVD (cardiovascular disease) Maternal Grandmother Breast cancer Diabetes Hypertension Maternal Grandfather Prostate cancer Paternal Grandmother CVD (cardiovascular disease) Paternal Grandfather Prostate cancer Sister In good health Son In good health Surgical History Surgical History Back pain with history of spinal surgery H/O wrist surgery History of extraction of renal calculus Social History Social History Household Members: Spouse Housing: Apartment Are you a primary critical care specialist to a significant other at home: No Do you presently have visiting nurse or other home services: No Alcohol intake: current Alcohol intake frequency: holidays/special occasions only Patient Tobacco Use Status: Never used Tobacco Smoked in Last 30 Days: No e-Cigarette/Vaping Use: Never Used Second Hand Smoke Exposure: No Use of substances other than those prescribed or required for medical reasons: No Are you DNR?: No Advance Directives: No Advance Directives Information Provided: No Patient : No service: No (HPD) Current occupational status: employed Cognitive needs: No Hearing needs: No Vision needs: No Meds Allergies Allergy/AdvReac Type Severity Reaction Status Date / Time celecoxib [From Celebrex] Allergy Intermediate ITCHING Verified 11/25/21 14:01 Effexor Allergy Unknown itching Verified 11/25/21 14:01 metronidazole Allergy Unknown rash Verified 11/25/21 14:01 sertraline [Zoloft] Allergy Unknown itching Verified 11/25/21 14:01 Sulfa (Sulfonamide Allergy Unknown unknown, Verified 11/25/21 14:01 Antibiotics) yeast infection sulfamethoxazole Allergy Unknown ITCHING Verified 11/25/21 14:01 [From BACTRIM] trimethoprim [From BACTRIM] Allergy Unknown ITCHING Verified 11/25/21 14:01 tramadol AdvReac Intermediate Nausea Verified 11/25/21 14:01 alprazolam [From XANAX] AdvReac Mild CONFUSION Verified 11/25/21 14:01 Active Medications: Current Medications Acetaminophen (Acetaminophen 325 Mg Tablet) 650 mg PO Q6H PRN PRN Reason: Pain, Mild (Pain Scale 1-3) Last Admin: 11/25/21 22:58 Dose: 650 mg Amlodipine Besylate (Amlodipine Besylate 5 Mg Tablet) 5 mg PO DAILY TONA; Protocol Last Admin: 11/26/21 09:18 Dose: Not Given Docusate Sodium (Docusate Sodium 100 Mg Capsule) 100 mg PO DAILY PRN PRN Reason: Constipation Hydromorphone HCl (Hydromorphone Hcl 1 Mg/Ml Syringe) 0.5 mg IVPUSH Q4H PRN; Protocol PRN Reason: Pain, Severe (Pain Scale 7-10) Last Admin: 11/26/21 16:33 Dose: 0.5 mg Ceftriaxone Sodium 1 gm/ (Sodium Chloride) 50 mls @ 100 mls/hr IV Q24H TONA Sodium Chloride (Ns) 1,000 mls @ 100 mls/hr IVCONT .Q10H TONA Last Admin: 11/26/21 10:20 Dose: 100 mls/hr Lidocaine (Lidocaine 4 % Patch Adh..Patch) 1 patch TRANSDERMA DAILY PRN PRN Reason: Pain Lorazepam (Lorazepam 0.5 Mg Tablet) 0.5 mg PO TID PRN PRN Reason: anxiety Ondansetron HCl (Ondansetron Hcl 4 Mg/2 Ml Vial) 4 mg IVPUSH Q8H PRN PRN Reason: Nausea and Vomiting Last Admin: 11/26/21 12:47 Dose: 4 mg Oxycodone HCl (Oxycodone Hcl Immed Release 5 Mg Tablet) 5 mg PO Q6H PRN PRN Reason: Pain, Moderate (Pain Scale 4-6 Last Admin: 11/25/21 22:58 Dose: 5 mg Pyridoxine HCl (Pyridoxine Hcl (Vitamin B6) 50 Mg Tablet) 100 mg PO DAILY [facility] Last Admin: 11/26/21 09:18 Dose: Not Given Sodium Chloride (0.9 % Sodium Chloride Flush 3 Ml Syringe) 3 ml IVFLUSH QSHIFT [facility] Last Admin: 11/26/21 17:09 Dose: Not Given Home Medications Medication Instructions Recorded Confirmed Last Taken Type ibuprofen 800 mg tablet 800 mg PO DAILY PRN pain 11/25/21 11/25/21 11/23/21 History lidocaine 5 % topical patch 1 patch topical DAILY PRN Pain 11/25/21 11/25/21 11/25/21 History (Lidoderm) Physical Exam Vital Signs: Vital Signs: Last Vital Signs Temp 97.1 F 11/26/21 17:15 Pulse 70 11/26/21 17:15 Resp 16 11/26/21 17:15 BP 146/86 H 11/26/21 17:15 Pulse Ox 98 11/26/21 17:15 O2 Del Method 11/26/21 17:15 BMI result Body Mass Index 30.9 Const: General: cooperative, healthy appearing, comfortable and no acute distress Orientation/consciousness: patient oriented x3 HEENT: Face and sinus: Yes normal facial exam Mouth: moist mucous membranes Neck: Neck: Yes normal visual inspection, Yes full ROM and Yes trachea midline Chest: Chest palpation & inspection: normal inspection of the chest Resp: Effort & Inspection: normal respiratory effort, able to speak in complete sentences and no respiratory distress GI: Inspection: Yes normal to inspection Back/Spine/Pelvis: Cervical Spine: normal cervical lordosis Thoracic/Lumbar Spine: thoracic and lumbar spine normal to inspection Skin: General skin exam: no rashes or lesions noted Neuro: General: patient oriented x3, tone normal and moves all extremities Extrem: General: Yes normal to inspection and Yes capillary refill normal Results Labs Result diagrams: 11/25/21 14:33 11/25/21 14:33 Labs: Urine 11/25/21 11/26/21 Range/Units 14:39 14:29 Urine Color Yellow Urine Appearance Cloudy Urine pH 8.0 (5.0-9.0) Ur Specific [place] 1.015 (1.005-1.025) Urine Protein Trace (Neg-Trace) mg/dL Urine Glucose (UA) Negative (Negative) mg/dL Urine Test NEGATIVE (NEGATIVE) All other labs normal. Assessment and Plan (1) Hydronephrosis: Status: Acute Plan Ureteroscopy We discussed the nature of the decision and reasonable alternatives for performing ureteroscopy. Options such as medical therapy were discussed. Interventions include chemical dissolution, ESWL, ureteroscopy with laser lithotripsy and stent placement, PCNL. The relative uncertainties and benefits related to each alternate procedure were adequately discussed. General surgical risks including, but not limited to - pain, bleeding, infection, myocardial infarction, pulmonary embolus, deep vein thrombosis and cerebrovascular accident which may result in further hospitalization were discussed. Full disclosure of the procedure as well as all major risks, benefits and complications were discussed including but not limited to damage to the urethra, bladder and kidney infection, damage to the ureter, stent migration or malposition, scarring to the renal pelvis, remnant stone fragments, subsequent stone passage with need for secondary procedures. The overall secondary procedure rate is approximately 10-15%. The overall clearance rate is approximately 90-95%. Success of the procedure in the short-term does not necessarily guarantee that long-term success will be maintained. Suitable follow up will need to be maintained. The patient showed understanding of discussion and wishes to proceed with - cystoscopy, retrograde, ureteroscopy, possible lithotripsy/stone basketing and stent on the right side Procedures Date of Service Date of Service: 11/26/21
[2021-11-26] MEDS: levoFLOXacin/D5W 500 MG/100 ML PIGGYBACK 100 MG IV (18:13)
--- NOTE | 2021-11-26 18:22 | MHC.SHP ---
Pre-Procedural Eval Section A Date of Service: 11/26/21 The patient is an INPATIENT: Yes Changes since office visit: No Cold of Flu in the past 2 weeks, No New Medical Problems, No Changes in Medication and No Patient answered all questions The History & Physical has been completed within 30 days and I have reviewed it.: Yes Section B Chief Complaint: UTI,hydronephrosis Details of Present Illness: right hydronephrosis Relevant Family History (Specify if Yes): No Relevant Social History: None Present Medications: see Short Stay Collaborative assessment History of Previous Operations: Relevant previous surgery/procedure and date(s) Allergies: Allergies Allergy/AdvReac Type Severity Reaction Status Date / Time celecoxib [From Celebrex] Allergy Intermediate ITCHING Verified 11/25/21 14:01 Effexor Allergy Unknown itching Verified 11/25/21 14:01 metronidazole Allergy Unknown rash Verified 11/25/21 14:01 sertraline [Zoloft] Allergy Unknown itching Verified 11/25/21 14:01 Sulfa (Sulfonamide Allergy Unknown unknown, Verified 11/25/21 14:01 Antibiotics) yeast infection sulfamethoxazole Allergy Unknown ITCHING Verified 11/25/21 14:01 [From BACTRIM] trimethoprim [From BACTRIM] Allergy Unknown ITCHING Verified 11/25/21 14:01 tramadol AdvReac Intermediate Nausea Verified 11/25/21 14:01 alprazolam [From XANAX] AdvReac Mild CONFUSION Verified 11/25/21 14:01 Review of Systems Sugical H&P ROS: Negative: Constitution, Cardiovascular, Respiratory, Neurological, Psychiatric, Hem-Onc, Allergic/Immunologic, Gastrointestinal, Genitourinary, Musculoskeletal, Integumentary, Endocrine and Eyes/Ears/Nose/Throat Exam Surgical H&P Exam: Normal: HEENT, Normal: Heart, Normal: Lungs, Normal: Extremities, Normal: Abdomen, Normal: Skin and Normal: Neurological Plan Diagnosis/Plan: Unchanged I have reviewed the history and physical and performed a pertinent physical examination on my patient. No changes have occurred unless specified.
--- NOTE | 2021-11-26 18:43 | HO.ANESPROP2 ---
[facility] Active Problems Active Problems: All Active Problems (Updated 11/25/21 @ 18:34 by CLAY Khoury) UTI (urinary tract infection) (Acute) Recurrent kidney stones (Acute) Hydronephrosis (Acute) Renal calculi (Acute) Pyelonephritis (Acute) Horseshoe kidney (Acute) Recurrent UTI (urinary tract infection) (Acute) Viral illness (Acute) Fever (Acute) Pruritus (Acute) Left elbow pain (Acute) Lumbar degenerative disc disease (Acute) Annual physical exam (Acute) Discoloration of skin of face (Acute) Cervical cancer screening (Acute) Arthralgia (Acute) Vitamin D deficiency (Acute) Lump of right breast (Acute) Nasal discharge (Acute) Cough (Acute) Herniated nucleus pulposus, L5-S1, left (Acute) Lumbar back pain (Acute) Nephrolithiasis (Acute) Right ankle pain (Acute) Right wrist pain (Acute) Acute sinusitis (Acute) Anxiety (Acute) Obesity (BMI 30-39.9) (Acute) Benign essential hypertension (Acute) Past Medical History Medical History Anxiety Benign essential hypertension Gestational HTN Horseshoe kidney Lumbar degenerative disc disease Obesity (BMI 30-39.9) Pyelonephritis Renal calculi Family History Family History Father HIV (human immunodeficiency virus infection) Mother CVD (cardiovascular disease) Maternal Grandmother Breast cancer Diabetes Hypertension Maternal Grandfather Prostate cancer Paternal Grandmother CVD (cardiovascular disease) Paternal Grandfather Prostate cancer Sister In good health Son In good health Family history of problems with anesthesia: No Surgical History Surgical History Back pain with history of spinal surgery H/O wrist surgery History of extraction of renal calculus History of Problems with Anesthesia: No Social History Social History Household Members: Spouse Housing: Apartment Are you a primary long term care administrator to a significant other at home: No Do you presently have visiting nurse or other home services: No Alcohol intake: current Alcohol intake frequency: holidays/special occasions only Patient Tobacco Use Status: Never used Tobacco Smoked in Last 30 Days: No e-Cigarette/Vaping Use: Never Used Second Hand Smoke Exposure: No Use of substances other than those prescribed or required for medical reasons: No Are you DNR?: No Advance Directives: No Advance Directives Information Provided: No Patient : No service: No (HPD) Current occupational status: employed Cognitive needs: No Hearing needs: No Vision needs: No Meds Allergies Allergy/AdvReac Type Severity Reaction Status Date / Time celecoxib [From Celebrex] Allergy Intermediate ITCHING Verified 11/25/21 14:01 Effexor Allergy Unknown itching Verified 11/25/21 14:01 metronidazole Allergy Unknown rash Verified 11/25/21 14:01 sertraline [Zoloft] Allergy Unknown itching Verified 11/25/21 14:01 Sulfa (Sulfonamide Allergy Unknown unknown, Verified 11/25/21 14:01 Antibiotics) yeast infection sulfamethoxazole Allergy Unknown ITCHING Verified 11/25/21 14:01 [From BACTRIM] trimethoprim [From BACTRIM] Allergy Unknown ITCHING Verified 11/25/21 14:01 tramadol AdvReac Intermediate Nausea Verified 11/25/21 14:01 alprazolam [From XANAX] AdvReac Mild CONFUSION Verified 11/25/21 14:01 Active Medications: Current Medications Acetaminophen (Acetaminophen 325 Mg Tablet) 650 mg PO Q6H PRN PRN Reason: Pain, Mild (Pain Scale 1-3) Last Admin: 11/25/21 22:58 Dose: 650 mg Amlodipine Besylate (Amlodipine Besylate 5 Mg Tablet) 5 mg PO DAILY TONA; Protocol Last Admin: 11/26/21 09:18 Dose: Not Given Docusate Sodium (Docusate Sodium 100 Mg Capsule) 100 mg PO DAILY PRN PRN Reason: Constipation Hydromorphone HCl (Hydromorphone Hcl 1 Mg/Ml Syringe) 0.5 mg IVPUSH Q4H PRN; Protocol PRN Reason: Pain, Severe (Pain Scale 7-10) Last Admin: 11/26/21 16:33 Dose: 0.5 mg Ceftriaxone Sodium 1 gm/ (Sodium Chloride) 50 mls @ 100 mls/hr IV Q24H TONA Sodium Chloride (Ns) 1,000 mls @ 100 mls/hr IVCONT .Q10H TONA Last Admin: 11/26/21 10:20 Dose: 100 mls/hr Lidocaine (Lidocaine 4 % Patch Adh..Patch) 1 patch TRANSDERMA DAILY PRN PRN Reason: Pain Lorazepam (Lorazepam 0.5 Mg Tablet) 0.5 mg PO TID PRN PRN Reason: anxiety Ondansetron HCl (Ondansetron Hcl 4 Mg/2 Ml Vial) 4 mg IVPUSH Q8H PRN PRN Reason: Nausea and Vomiting Last Admin: 11/26/21 12:47 Dose: 4 mg Oxycodone HCl (Oxycodone Hcl Immed Release 5 Mg Tablet) 5 mg PO Q6H PRN PRN Reason: Pain, Moderate (Pain Scale 4-6 Last Admin: 11/25/21 22:58 Dose: 5 mg Pyridoxine HCl (Pyridoxine Hcl (Vitamin B6) 50 Mg Tablet) 100 mg PO DAILY [facility] Last Admin: 11/26/21 09:18 Dose: Not Given Sodium Chloride (0.9 % Sodium Chloride Flush 3 Ml Syringe) 3 ml IVFLUSH QSHIFT [facility] Last Admin: 11/26/21 17:09 Dose: Not Given Home Medications Medication Instructions Recorded Confirmed Last Taken Type ibuprofen 800 mg tablet 800 mg PO DAILY PRN pain 11/25/21 11/25/21 11/23/21 History lidocaine 5 % topical patch 1 patch topical DAILY PRN Pain 11/25/21 11/25/21 11/25/21 History (Lidoderm) Exam Exam Date and Time: November 26, [id number] Height,Weight and Vital Signs: Height 5 ft 6 in Weight 87.09 kg Last Vital Signs Temp 97.1 F 11/26/21 17:15 Pulse 70 11/26/21 17:15 Resp 16 11/26/21 17:15 BP 146/86 H 11/26/21 17:15 Pulse Ox 98 11/26/21 17:15 O2 Del Method 11/26/21 17:15 Pertinent Lab Results Pertinent Lab Results: Laboratory Tests 11/25/21 11/25/21 11/25/21 14:33 14:33 14:39 WBC 10.2 RBC 4.93 Hgb 14.6 Hct 45.0 MCV 91.3 MCH 29.6 MCHC 32.4 RDW 12.4 Plt Count 362 MPV 10.6 Immature Gran % (Auto) 0.2 Neut % (Auto) 65.8 Lymph % (Auto) 26.4 [place] % (Auto) 5.5 Eos % (Auto) 1.6 Baso % (Auto) 0.5 Lymph # (Auto) 2.7 [place] # (Auto) 0.6 Eos # (Auto) 0.2 Baso # (Auto) 0.1 Abs Immat Gran (auto) 0.02 Absolute Neuts (auto) 6.7 Absolute Nucleated RBC 0.000 Nucleated RBC % (auto) 0.0 Sodium 141 Potassium 3.7 Chloride 104 Carbon Dioxide 27 Anion Gap 14 BUN 10 Creatinine 0.80 Estim Creat Clear Calc 100.7 Estimated GFR > 60 Random Glucose 159 H Calcium 8.9 Urine Color Yellow Urine Appearance Cloudy Urine pH 8.0 Ur Specific [place] 1.015 Urine Protein Trace Urine Glucose (UA) Negative Urine Ketones Negative Urine Blood Moderate (2+) H Urine Nitrite Negative Ur Leukocyte Esterase Large (3+) H Urine RBC 3-5 H Urine WBC >50 H Ur Squamous Epith Cells >20 Urine Bacteria 1+ Hyaline Casts 0-2 Urine Test COVID-19 (JERRELL) COVID-PreciouStatus 11/26/21 11/26/21 10:03 14:29 WBC RBC Hgb Hct MCV MCH MCHC RDW Plt Count MPV Immature Gran % (Auto) Neut % (Auto) Lymph % (Auto) [place] % (Auto) Eos % (Auto) Baso % (Auto) Lymph # (Auto) [place] # (Auto) Eos # (Auto) Baso # (Auto) Abs Immat Gran (auto) Absolute Neuts (auto) Absolute Nucleated RBC Nucleated RBC % (auto) Sodium Potassium Chloride Carbon Dioxide Anion Gap BUN Creatinine Estim Creat Clear Calc Estimated GFR Random Glucose Calcium Urine Color Urine Appearance Urine pH Ur Specific [place] Urine Protein Urine Glucose (UA) Urine Ketones Urine Blood Urine Nitrite Ur Leukocyte Esterase Urine RBC Urine WBC Ur Squamous Epith Cells Urine Bacteria Hyaline Casts Urine Test NEGATIVE COVID-19 (JERRELL) Negative COVID-19 Amigos y Amigos See Note Airway Mallampati Class: II TM Dist: >3cm Loose/Missing/Broken Teeth: No Heart: RRR Lungs: CTA Assessment and Plan Assessment Anesthesia Assessment: Anesthesia Plan Discussed and Chart Reviewed Final Anesthetic Review Family History of Problems with Anesthesia: No History of Problems with Anesthesia: No ASA Class: II and Emergency Final Preanesthetic Review: No Changes in Pt Med Stat, Meds/Allgs Chart Reviewed, Consent Obtained/Reviewed and Anes Risks/Benef Reviewed Patient Risk: Intermediate Procedure Risk: Low Anesthetic Plan Anesthetic Plan: GA (Back up) and MAC: Disposition: Standard PACU
[2021-11-26] MEDS: Ketorolac Tromethamine 30 MG/ML VIAL IVPUSH (19:47)
--- NOTE | 2021-11-26 19:47 | W.PM.OPN ---
Operative Note Operative Note Date of Service: 11/26/21 Narrative: PreOperative Diagnosis: distal right ureteric stone Post Operative Diagnosis: distal right ureteric stone Procedure: - cystoscopy, right retrograde - right dilatation of ureteric orifice under fluoroscopy - right ureteroscopy, laser lithotripsy, stone basketing - right stent placement Surgeon: Dr Jose Alfredo Addison Anesthesia: General Indications for procedure: persistent right flank pain with right hydronephrosis and hydroureter on ultrasound Procedure: After informed consent was verified patient was brought to the operating placed in supine position. Anesthesia was administered per protocol. Patient was placed in modified dorsal lithotomy position and prepped and draped in a sterile fashion. Safety pause time-out and side of surgery confirmed. Antibiotics confirmed. A 22 Congolese cystoscope was inserted per urethra. Bladder was normal in its entirety. Both ureteric orifices were in normal position. The right ureteric orifice was cannulated and a retrograde examination was performed. filling defects seen approximately 2 in from right UPJ . A Sensor guidewire was placed up to the level of the renal pelvis under fluoroscopy. The rigid cystoscope was removed. A Imperial dilator was placed over the Sensor guidewire and used to dilate the ureteric orifice under fluoroscopy. The dilator was removed. The semi rigid ureteral scope was placed alongside the Sensor guidewire. stone was encountered in using laser fiber the stone was broken into small pieces. We then used a 0 tip basket in all to remove stone fragments. These were sent for analysis. A 6 Congolese by 22 cm double-J stent was placed into the renal pelvis and bladder under a combination of fluoroscopy and direct visualization. The bladder was emptied. The patient tolerated the procedure well and was extubated in the operating room, and transferred in stable condition to the recovery area. Pathology: Stones Drains: stent as above
--- NOTE | 2021-11-26 19:51 | PC.NURSE ---
DR. BOWER AT BEDSIDE TO REVIEW PLAN OF CARE PROCEDURE. EDUCATED PLAN DISCHARGE TO HOME ONCE RECOVERY PACU
--- NOTE | 2021-11-26 20:02 | PM.EVENT ---
Event Note Date of Service: 11/26/21 Event Note: received mssg from PACU nurse that pt is being discharged directly post procedure.Pt desires discharge as well. I asked Dr. ewing to provide pt the discharge meds required prior to discharge. Pt being discharged by Urologist
== END 2021-11-26 21:00 | disposition home or self-care (01) | DRG 446 ==
LOC: HO.ED 19:20 → HO.EDOVER 20:38
PROVIDERS: Anesthesiology; Urology; Admitting Provider Physician Assistant; Emergency Provider Emergency Medicine; PCP Internal Medicine; Visit Provider Hospitalist
PROC: 0TC68ZZ Extirpation of Matter from Right Ureter, Via Natural or Artificial Opening Endoscopic (ICD-10-PCS; principal; 2021-11-26 18:10)
DX: N13.6 Pyonephrosis (principal); I10 Essential (primary) hypertension; F41.9 Anxiety disorder, unspecified; M51.36 Other intervertebral disc degeneration, lumbar region; R31.9 Hematuria, unspecified; Q63.1 Lobulated, fused and horseshoe kidney; Z20.822 Contact with and (suspected) exposure to COVID-19; Z87.442 Personal history of urinary calculi; Z88.2 Allergy status to sulfonamides; Z88.5 Allergy status to narcotic agent; Z88.6 Allergy status to analgesic agent; Z88.8 Allergy status to other drugs, medicaments and biological substances; Z79.899 Other long term (current) drug therapy
CPT/HCPCS: 36415; 76775; 76857; 80048; 81001; 81025; 85025; 87086; 87635; 99284; C1758; C1769; C2617; J0131; J0696; J1100; J1170; J1650; J1885; J1956; J2250; J2270; J2405; J3010; Q9967

== ENCOUNTER 2021-11-30 23:15 | Emergency (ER) | payer OTHER, SELFPAY ==
--- NOTE | ~2021-11-30 | CT_ITS ---
EXAMINATION: CT ABDOMEN AND PELVIS WITHOUT CONTRAST CLINICAL INFORMATION: Right flank pain, status post stent placement. COMPARISON: CT abdomen and pelvis from 07/24/2021. Renal ultrasound from 11/25/2021. TECHNIQUE: Multidetector volumetric imaging was performed from the superior aspect of the liver through the pubic symphysis. Sagittal and coronal reformatted images were obtained on the technologist's workstation. This CT examination was performed using dose optimization techniques as appropriate, variously including the following: *Automated exposure control *Adjustment of mA and/or kV according to patient size (this includes techniques or standardized protocols for targeted exams where dose is matched to indication/reason for exam; i.e. extremities or head) *Use of iterative reconstruction technique DLP: 655 mGy-cm FINDINGS: LUNG BASES: No pulmonary consolidation or pleural effusion. LIVER: The liver has normal size, shape, and attenuation. No evidence of liver mass. GALLBLADDER AND BILIARY TREE: Gallbladder is without radiopaque stones, wall thickening or pericholecystic fluid. No dilated bile ducts. PANCREAS: Normal. No edema, pancreatic ductal dilatation or mass. SPLEEN: Normal. ADRENAL GLANDS: Normal. KIDNEYS AND URETERS: Again noted is the horseshoe kidney and chronic mild fullness of the left renal pelvis. Mild right hydronephrosis is present. No perinephric edema or perinephric fluid collection. Small, 0.2 cm calyceal stones are present in the mid and lower pole of the right kidney. The right ureteral stent is well-positioned with proximal loop located within the dilated renal pelvis and distal loop of the stent positioned within the urinary bladder. There appears to be a 0.2 cm stone of the distal right ureter along the surface of the stent (image [id number]). There are no large renal or ureteral stones. BLADDER: Normal. No calculi or wall thickening. BOWEL AND PERITONEUM: Stomach is unremarkable. No dilated loops of bowel. The appendix is normal. No overt bowel wall thickening or mesenteric fat stranding. No free fluid or pneumoperitoneum. ABDOMINAL WALL: Unremarkable. VASCULATURE: Unremarkable. LYMPH NODES: No pathologic sized lymph nodes in the abdomen or pelvis. No inguinal lymphadenopathy. PELVIC VISCERA: Normal. No uterine or adnexal mass. SKELETAL: No suspicious bone lesions. At L5-S1, there is moderate narrowing of disc space, vacuum disc phenomenon and vertebral osteophyte formation. CT/CT abdomen pelvis wo IV con IMPRESSION: Again noted is a horseshoe kidney and small calyceal stones of the right kidney. The right ureteral stent is in satisfactory position. Mild right hydronephrosis is present, and there appears to be a 0.2 cm stone of the distal ureter along the surface of the stent. No perinephric edema or perinephric fluid collection.
[2021-12-01 00:25] VITALS: BP 149/95; PULSE 79; RESP 18; TEMP 36.8; O2SAT 98; BMI 30.9
[2021-12-01 00:55] LABS: MANUAL DIFF FLAG NO
[2021-12-01 00:57] LABS: Basophils Absolute Auto 0.1 X10*3/uL (0.0-0.2); Basophils Percent Auto 0.9 % (0-2); Eosinophils Absolute Auto 0.8 X10*3/uL (0.0-0.4); Hemoglobin 14.7 g/dl (12.0-16.0); Imm Gran Abs Auto 0.04 X10*3/uL (0.00-0.03); Imm Gran Pct Auto 0.3 % (0.0-0.4); Lymphocytes Absolute Auto 2.6 X10*3/uL (1.2-4.9); Lymphocytes Percent Auto 19.6 % (20-40); Mean Corpuscular HGB Conc 32.7 g/dl (31.0-35.0); Mean Corpuscular Hemoglobin 29.9 pg (27.0-33.0); Mean Corpuscular Volume 91.5 fL (80.0-98.0); Mean Platelet Volume 10.3 fL (9.4-12.3); Monocytes Absolute Auto 1.3 X10*3/uL (0.1-1.2); Monocytes Percent Auto 9.8 % (2-11); Neutrophils Absolute Auto 8.4 x10*3/uL (2.0-8.3); Neutrophils Percent Auto 63.4 % (45-73); Platelet Count 369 X10*3/uL (160-400); Red Blood Count 4.92 X10*6/uL (4.20-5.50); Red Cell Distribution Width 12.4 % (11.0-16.0); White Blood Count 13.3 X10*3/uL (4.8-10.8)
[2021-12-01 01:08] LABS: Anion Gap 16 (12-20); Blood Urea Nitrogen 15 mg/dL (9-16); Calcium 9.7 mg/dL (8.4-10.2); Carbon Dioxide 28 mmol/L (22-29); Chloride 103 mmol/L (96-108); Creatinine Clr Calc Pharmacy 97.1; Estimated Glomerular Filt Rate > 60; Glucose Random 92 mg/dL (60-115); Potassium 4.3 mmol/L (3.3-5.1); Sodium 143 mmol/L (135-145)
[2021-12-01 01:17] LABS: Appearance Urine Turbid; Color Urine Orange; Glucose Urine UA Negative (Negative); Leukocyte Esterase Urine Moderate (2+) (Negative); Nitrite Urine Positive (Negative); PH 5.5 (5.0-9.0); Specific Gravity - Urine 1.015 (1.005-1.025); UMIC TRIGGER UACC YES; Urine Blood Large (3+) (Negative); Urine Ketones Negative (Negative); Urine Protein 300 (3+) mg/dL (Neg-Trace)
[2021-12-01 01:26] LABS: Bacteria Urine 1+ (None Seen); Granular Casts Urine Present; Other Crystals Urine Present; RBC Urine >20 /HPF (0-2); UACC Culture Trigger YES; WBC Urine 21-50 /HPF (0-5)
[2021-12-01 02:28] VITALS: BP 145/91; PULSE 81; TEMP 37.2; O2SAT 99
[2021-12-01 05:42] VITALS: BP 151/95; BP 155/89; PULSE 72; RESP 16; RESP 18; TEMP 36.7; O2SAT 97; O2SAT 98
--- NOTE | 2021-12-01 05:45 | PC.NURSE ---
pt brought back to room, call adrian in place, awaiting to be see by provider.
[2021-12-01] MEDS: 0.9 % Sodium Chloride 1,000 ML 999 ML IV (06:06)
[2021-12-01] MEDS: ondansetron HCL 4 MG/2 ML VIAL IVPUSH (06:10)
[2021-12-01 06:11] VITALS: RESP 16
[2021-12-01] MEDS: Morphine Sulfate 4 MG/ML CARTRIDGE IVPUSH ×2 (06:11→13:46)
[2021-12-01 06:31] VITALS: BP 134/72; PULSE 75; RESP 19; O2SAT 96
--- NOTE | 2021-12-01 06:34 | PC.NURSE ---
pt taken to ct.
--- NOTE | 2021-12-01 07:02 | ED_ITS ---
HPI - General Adult General Chief complaint: General Medical Stated complaint: post op surgery on unable to walk Time Seen by Provider: 12/01/21 00:59 Source: patient Mode of arrival: ambulatory Limitations: no limitations History of Present Illness HPI narrative: patient with 5 days post op after lithotrypsy and stent placement, now with more back pain and leg pain Onset (ago): day(s) Location: back Severity: moderate Quality: burning Pain Consistency: constant Relieving factors: none Associated symptoms: nausea/vomiting and weakness Related Data Home Medications Medication Instructions Recorded Confirmed ibuprofen 800 mg tablet 800 mg PO DAILY PRN pain 11/25/21 11/25/21 lidocaine 5 % topical patch 1 patch topical DAILY PRN Pain 11/25/21 11/25/21 (Lidoderm) fluconazole 150 mg tablet 150 mg PO Q3D 11/27/21 metronidazole 500 mg tablet 500 mg PO BID 11/27/21 Previous Rx's Medication Instructions Recorded pyridoxine (vitamin B6) 100 mg 100 mg PO DAILY 90 days #90 tabs 03/24/21 tablet amlodipine 5 mg tablet 5 mg PO DAILY 90 days #90 tabs 05/22/21 oxycodone 5 mg tablet 5 mg PO BID PRN pain #14 tabs 10/20/21 lorazepam 0.5 mg tablet 0.5 mg PO TID PRN anxiety 30 days 11/05/21 #90 tabs levofloxacin 500 mg tablet 500 mg PO DAILY #3 tabs 11/26/21 phenazopyridine 100 mg tablet 100 mg PO TID PRN Spasm 4 days #12 11/26/21 (Pyridium) tabs Allergies Allergy/AdvReac Type Severity Reaction Status Date / Time celecoxib [From Celebrex] Allergy Intermediate ITCHING Verified 11/27/21 13:41 Effexor Allergy Unknown itching Verified 11/27/21 13:41 metronidazole Allergy Unknown rash Verified 11/27/21 13:41 sertraline [Zoloft] Allergy Unknown itching Verified 11/27/21 13:41 Sulfa (Sulfonamide Allergy Unknown unknown, Verified 11/27/21 13:41 Antibiotics) yeast infection sulfamethoxazole Allergy Unknown ITCHING Verified 11/27/21 13:41 [From BACTRIM] trimethoprim [From BACTRIM] Allergy Unknown ITCHING Verified 11/27/21 13:41 tramadol AdvReac Intermediate Nausea Verified 11/27/21 13:41 alprazolam [From XANAX] AdvReac Mild CONFUSION Verified 11/27/21 13:41 Review of Systems Constitutional: Constitutional: Reports no additional constitutional complaints Eyes: Eyes: Reports no additional eye complaints ENT: Denies dizziness Cardiovascular: Cardiovascular: Reports no additional cardiovascular c omplaints Respiratory: Respiratory: Reports as per HPI Gastrointestinal: Gastrointestinal: Reports no additional gastrointestinal complaints Genitourinary: Genitourinary: Reports no additional female genitourinary complaints Musculoskeletal: Musculoskeletal: Reports no additional musculoskeletal complaints Integumentary/Breasts: Skin/Breast: Denies rash Neurologic: Reports system reviewed and no additional complaints, except as documented, Denies dizziness and Denies Sensory deficit (Neuro) Psychiatric: Psychiatric: Denies anxiety PMFSH Past Medical History Medical History Anxiety Benign essential hypertension Gestational HTN Horseshoe kidney Lumbar degenerative disc disease Obesity (BMI 30-39.9) Pyelonephritis Renal calculi Surgical History Back pain with history of spinal surgery H/O wrist surgery History of extraction of renal calculus Family History Family History Father HIV (human immunodeficiency virus infection) Mother CVD (cardiovascular disease) Maternal Grandmother Breast cancer Diabetes Hypertension Maternal Grandfather Prostate cancer Paternal Grandmother CVD (cardiovascular disease) Paternal Grandfather Prostate cancer Sister In good health Son In good health Social History Social History Household Members: Spouse Housing: Apartment Are you a primary family day care provider to a significant other at home: No Do you presently have visiting nurse or other home services: No Alcohol intake: current Alcohol intake frequency: holidays/special occasions only Patient Tobacco Use Status: Never used Tobacco e-Cigarette/Vaping Use: Never Used Second Hand Smoke Exposure: No service: No (HPD) Current occupational status: employed Cognitive needs: No Hearing needs: No Vision needs: No Physical Exam ED Vital Signs: Vital Signs - 24 hr 12/01/21 00:25 12/01/21 02:28 12/01/21 05:42 Temperature 98.2 F 98.9 F Pulse Rate 79 81 72 Respiratory Rate 18 16 Blood Pressure 149/95 H 145/91 H 155/89 H Pulse Oximetry 98 99 97 Oxygen Delivery Method Room Air Room Air Room Air 12/01/21 05:42 12/01/21 06:11 12/01/21 06:31 Temperature 98.0 F Pulse Rate 72 75 Respiratory Rate 18 16 19 Blood Pressure 151/95 H 134/72 Pulse Oximetry 98 96 Oxygen Delivery Method Room Air Room Air 12/01/21 13:48 Temperature 98.6 F Pulse Rate 72 Respiratory Rate 18 Blood Pressure 118/78 Pulse Oximetry 98 Oxygen Delivery Method Room Air BMI result Body Mass Index 30.9 Const Other: anxious Nutritional Appearance: average body habitus Orientation/consciousness: oriented to person and patient oriented x3 Limitations: no limitations HENMT Head: Yes normal to inspection Ears: external ears normal General nose exam: Normal external nose present Mouth: Normal oral and palatal mucosa present and oropharynx normal Throat: Yes posterior oropharynx normal Eyes General: appearance normal, both eyes and all related structures Neck Neck: Yes normal visual inspection Chest Chest palpation & inspection: normal inspection of the chest Resp Auscultation: clear to auscultation bilaterally Cardio Jugular venous distension: no JVD Rate: regular rate Rhythm: regular rhythm Heart sounds: S1 normal heart sound present and S2 normal heart sound present GI Inspection: Yes normal to inspection Palpation (GI): Soft to palpation, nontender and No hepatosplenomegaly present Auscultation: normal bowel sounds General: Yes no CVA tenderness Back/Spine/Pelvis Back: no CVA tenderness Skin General skin exam: no rashes or lesions noted Neuro General: oriented to person and patient oriented x3 Cranial nerves: Yes CN's II-XII intact bilaterally Motor exam (neuro): 5/5 motor strength present throughout Sensory Exam: No Sensory deficit (Neuro) Extrem General: Yes normal to inspection Psych Appearance: grossly normal Course Reevaluation(s) Reevaluation #1: Stent is in good position will discuss with Dr. Addison, who states that the patient is to have stent removed in the office today Time: 10:25 Reevaluation #2: patient can go to Dr Addison's office to have her stent pulled Time: 15:28 Medical Decision Making Lab Data Result diagrams: 12/01/21 00:36 12/01/21 00:36 Labs: Lab Results 12/01/21 12/01/21 12/01/21 Range/Units 00:36 00:36 01:03 WBC 13.3 H (4.8-10.8) X10*3/uL RBC 4.92 (4.20-5.50) X10*6/uL Hgb 14.7 (12.0-16.0) g/dl Hct 45.0 (37.0-47.0) % MCV 91.5 (80.0-98.0) fL MCH 29.9 (27.0-33.0) pg MCHC 32.7 (31.0-35.0) g/dl RDW 12.4 (11.0-16.0) % Plt Count 369 (160-400) X10*3/uL MPV 10.3 (9.4-12.3) fL Immature Gran % (Auto) 0.3 (0.0-0.4) % Neut % (Auto) 63.4 (45-73) % Lymph % (Auto) 19.6 L (20-40) % [place] % (Auto) 9.8 (2-11) % Eos % (Auto) 6.0 H (0-4) % Baso % (Auto) 0.9 (0-2) % Lymph # (Auto) 2.6 (1.2-4.9) X10*3/uL [place] # (Auto) 1.3 H (0.1-1.2) X10*3/uL Eos # (Auto) 0.8 H (0.0-0.4) X10*3/uL Baso # (Auto) 0.1 (0.0-0.2) X10*3/uL Abs Immat Gran (auto) 0.04 H (0.00-0.03) X10*3/uL Absolute Neuts (auto) 8.4 H (2.0-8.3) x10*3/uL Absolute Nucleated RBC 0.000 (0.0-0.012) X10*3/uL Nucleated RBC % (auto) 0.0 (0.0-0.2) /100WBC Sodium 143 (135-145) mmol/L Potassium 4.3 (3.3-5.1) mmol/L Chloride 103 (96-108) mmol/L Carbon Dioxide 28 (22-29) mmol/L Anion Gap 16 (12-20) BUN 15 (9-16) mg/dL Creatinine 0.83 (0.5-1.4) mg/dL Estim Creat Clear Calc 97.1 Estimated GFR > 60 Random Glucose 92 (60-115) mg/dL Calcium 9.7 D (8.4-10.2) mg/dL Urine Color [place] A Urine Appearance Turbid Urine pH 5.5 (5.0-9.0) Ur Specific [place] 1.015 (1.005-1.025) Urine Protein 300 (3+) H (Neg-Trace) mg/dL Urine Glucose (UA) Negative (Negative) mg/dL Urine Ketones Negative (Negative) mg/dL Urine Blood Large (3+) H (Negative) Urine Nitrite Positive H (Negative) Ur Leukocyte Esterase Moderate (2+) H (Negative) Urine RBC >20 H (0-2) /HPF Urine WBC 21-50 H (0-5) /HPF Ur Squamous Epith Cells 6-10 (0-2) /HPF Other Crystals Present Urine Bacteria 1+ (None Seen) Hyaline Casts 3-5 (0-2) /LPF Granular Casts Present Imaging Data CT scan - abdomen: Radiologist's impression: IMPRESSION: Again noted is a horseshoe kidney and small calyceal stones of the right kidney. The right ureteral stent is in satisfactory position. Mild right hydronephrosis is present, and there appears to be a 0.2 cm stone of the distal ureter along the surface of the stent. No perinephric edema or perinephric fluid collection. ? Discharge Plan Discharge Clinical Impression: Renal colic Patient Disposition: Home, Self-Care Instructions: Lithotripsy (DC) Prescriptions: No Action amlodipine 5 mg tablet 5 mg PO DAILY 90 Days Qty: 90 1RF lorazepam 0.5 mg tablet 0.5 mg PO TID PRN (Reason: anxiety) 30 Days Qty: 90 0RF oxycodone 5 mg tablet 5 mg PO BID PRN (Reason: pain) Qty: 14 0RF ibuprofen 800 mg tablet 800 mg PO DAILY PRN (Reason: pain) Rx Instructions: Take with food lidocaine [Lidoderm] 5 % adhesive patch,medicated 1 patch topical DAILY PRN (Reason: Pain) Rx Instructions: leave on most painful area for up to 12 hrs phenazopyridine [Pyridium] 100 mg tablet 100 mg PO TID PRN (Reason: Spasm) 4 Days Qty: 12 0RF levofloxacin 500 mg tablet 500 mg PO DAILY Qty: 3 0RF pyridoxine (vitamin B6) 100 mg tablet 100 mg PO DAILY 90 Days Qty: 90 1RF metronidazole 500 mg tablet 500 mg PO BID fluconazole 150 mg tablet 150 mg PO Q3D Referrals: Jose Alfredo Addison MD [Physician] - 12/01/21 3:29 pm (go right to his office) Interventions: LWBS Worksheet Last Done: 12/01/21 05:32
[2021-12-01 13:48] VITALS: BP 118/78; PULSE 72; RESP 18; TEMP 37; O2SAT 98
== END 2021-12-01 15:46 | disposition home or self-care (01) ==
PROVIDERS: Emergency Provider Emergency Medicine; PCP Internal Medicine
DX: N23 Unspecified renal colic (principal); R53.1 Weakness; T83.84XA Pain due to genitourinary prosthetic devices, implants and grafts, initial encounter; Y82.8 Other medical devices associated with adverse incidents
CPT/HCPCS: 36415; 74176; 80048; 81001; 85025; 87086; 96374; 96375; 96376; 99284; J2270; J2405

== ENCOUNTER → 2021-12-01 15:44 | Outpatient (BNVA) | payer OTHER, SELFPAY | PROVIDERS: PCP Internal Medicine; Visit Provider Urology | DX: N20.0 Calculus of kidney (principal) | CPT/HCPCS: 52310 ==

== ENCOUNTER 2021-12-28 12:25 | Outpatient (REF) | payer OTHER, SELFPAY ==
--- NOTE | ~2021-12-28 | US_ITS ---
EXAMINATION: US RETROPERITONEAL LIMITED (RENAL ONLY) CLINICAL INFORMATION: Calculus of kidney. COMPARISON: CT abdomen and pelvis 05/03/2021. Ultrasound kidneys and bladder 08/2403/26/2021 and 10/05/2021 x-ray KUB 06/25/2020 TECHNIQUE: Real-time imaging of the kidneys. FINDINGS: There is a horseshoe kidney. RIGHT KIDNEY: 10.1 x 4.4 x 3.8 cm (SAG x AP x TRV). The kidney is normal in size, contour, and echogenicity. Renal cortical thickness is normal. There is a 3 x 4 mm stone in the mid to lower pole. There is mild right pelvic fullness. No calyceal dilatation. No focal mass. Right ureteral stent is not seen. LEFT KIDNEY: 11.0 x 5.1 x 4.6 cm (SAG x AP x TRV). The kidney is normal in size, contour, and echogenicity. Renal cortical thickness is normal. There is mild left pelvic fullness. No calyceal dilatation. No stone or mass. BLADDER: Bilateral ureteral jets are demonstrated. US/US renal BI IMPRESSION: Horseshoe kidney. Mild bilateral pelvic fullness. No definite hydronephrosis. Small right renal stone.
== END 2021-12-28 12:26 | disposition home or self-care (01) ==
LOC: HO.US 12:25
PROVIDERS: Visit Provider Urology
DX: N20.0 Calculus of kidney (principal)
CPT/HCPCS: 76775

== ENCOUNTER 2022-03-25 07:09 | Outpatient (REF) | payer OTHER, SELFPAY ==
[2022-03-25 08:19] LABS: Estimated Average Glucose 94 mg/dL; Hemoglobin A1c % 4.9 %
[2022-03-25 08:21] LABS: Alanine Aminotransferase 7 U/L (0-31); Albumin Level 3.9 g/dL (3.5-5.0); Alkaline Phosphatase 66 U/L (39-117); Anion Gap 13 (12-20); Aspartate Amino Transferase 15 U/L (5-31); Bilirubin Total 0.5 mg/dL (0.0-1.0); Blood Urea Nitrogen 11 mg/dL (9-16); C Reactive Protein 0.22 mg/dL (< or = 0.50); Calcium 8.9 mg/dL (8.4-10.2); Carbon Dioxide 27 mmol/L (22-29); Chloride 107 mmol/L (96-108); Cholesterol 116 mg/dL; Estimated Glomerular Filt Rate > 60; Glucose Fasting 103 mg/dL (60-99); HDL Cholesterol 40 mg/dL; LDL Cholesterol Calculated 66 mg/dl; Potassium 4.7 mmol/L (3.3-5.1); Rheumatoid Factor < 13.0 IU/mL (<15.0); Sodium 142 mmol/L (135-145); Total Protein 6.7 g/dL (6.5-8.0); Triglycerides 53 mg/dL
[2022-03-25 08:31] LABS: Erythrocyte Sedimentation Rate 7 MM/HR (0-20)
[2022-03-28 14:04] LABS: Anti Nuclear Antibody Screen NEGATIVE (NEGATIVE)
== END 2022-03-25 07:10 | disposition home or self-care (01) ==
LOC: HO.LAB 07:09
PROVIDERS: PCP Internal Medicine; Visit Provider Internal Medicine
DX: M25.50 Pain in unspecified joint (principal); R73.9 Hyperglycemia, unspecified; E78.00 Pure hypercholesterolemia, unspecified
CPT/HCPCS: 36415; 80053; 80061; 83036; 85652; 86038; 86039; 86140; 86431

== ENCOUNTER → 2022-03-30 15:44 | Outpatient (BNVA) | payer OTHER, SELFPAY | PROVIDERS: PCP Internal Medicine; Visit Provider Nurse Practitioner Family | DX: Z13.89 Encounter for screening for other disorder (principal) ==

== ENCOUNTER 2022-04-01 08:42 | Emergency (ER) | payer OTHER, SELFPAY ==
--- NOTE | ~2022-04-01 | CT_ITS ---
EXAMINATION: CT ABDOMEN AND PELVIS WITHOUT CONTRAST CLINICAL INFORMATION: Severe right flank pain and history of stones COMPARISON: Ultrasound renal from 12/28/[address] abdomen from 12/01/2021 TECHNIQUE: Multidetector volumetric imaging was performed from the superior aspect of the liver through the pubic symphysis. Sagittal and coronal reformatted images were obtained on the technologist's workstation. This CT examination was performed using dose optimization techniques as appropriate, variously including the following: *Automated exposure control *Adjustment of mA and/or kV according to patient size (this includes techniques or standardized protocols for targeted exams where dose is matched to indication/reason for exam; i.e. extremities or head) *Use of iterative reconstruction technique DLP: 747 mGy-cm FINDINGS: LUNG BASES: The visualized lung bases are unremarkable. LIVER, GALLBLADDER, AND BILIARY TREE: The liver is normal in size, shape, and attenuation. No focal hepatic lesion or biliary ductal dilatation is present. The gallbladder is unremarkable with no evidence of radiopaque gallstones, gallbladder wall thickening, or obvious pericholecystic inflammatory changes. PANCREAS: Unremarkable. SPLEEN: Unremarkable. 7 mm splenule. ADRENAL GLANDS: Unremarkable. KIDNEYS AND URETERS: Redemonstration of horseshoe kidney with mild bilateral pelvic fullness. No nephrolithiasis BLADDER: Unremarkable. GASTROINTESTINAL TRACT: Suggestion of mild mucosal thickening of the descending colon along its proximal aspect versus underdistention. Correlation with symptomatology. The small and large bowel are unremarkable. The appendix is unremarkable. ABDOMINAL WALL: Small fat filled umbilical hernia. LYMPH NODES: No enlarged lymph nodes per size criteria. Multiple subcentimeter mesenteric lymph nodes are noted, not enlarged per size criteria. VASCULAR: Abdominal aorta is nonaneurysmal. Pelvic phleboliths are noted. PELVIC VISCERA: Anteverted uterus. OSSEOUS STRUCTURES: Multilevel degenerative changes greatest at L5-S1. No large lytic or blastic lesions are noted. CT/CT abdomen pelvis wo IV con IMPRESSION: 1. Suggestion of mild mucosal thickening of the descending colon along its proximal aspect versus underdistention. Correlation with symptomatology. 2. Redemonstration of horseshoe kidney with mild bilateral pelvic fullness. No nephrolithiasis or hydronephrosis.
[2022-04-01 08:48] VITALS: BP 130/79; PULSE 82; RESP 16; TEMP 37.2; O2SAT 99; BMI 32.1
--- NOTE | 2022-04-01 08:56 | ED.FEMALEGU ---
HPI - Female Genitourinary General Chief complaint: Urogenital-Female Stated complaint: abd pain Time Seen by Provider: 04/01/22 08:56 Source: patient and old records reviewed Mode of arrival: ambulatory Limitations: no limitations History of Present Illness HPI Narrative: 41 yo female with history of recurrent UTIs, hx pyelonephritis, hx horseshoe kidney, recurrent kidney stones requiring multiple interventions in the past who follows w/ Dr. Addison presents to the ER for evaluation of constant, severe right sided flank pain for the last 9 days. She has associated nausea and reports her body feels toxic like there is an infection. She endorses increased urinary frequency but no dysuria or hematuria. She spoke with provider at Urology on 03/30 with plan for outpatient ultrasound. She reports the pain got worse and she was instructed to come to the ER if it did. She denies any fever or chills. She reports some right lower abdominal pain that she compares to her menstrual cycle. MD elicited complaint: back pain and flank pain Pertinent past history: pyelonephritis Onset (ago): day(s) (9) Location of symptoms: flank Severity: severe Female Urogenital Radiation: LRQ Severity scale (1-10): 10 Quality of pain: sharp and stabbing Consistency: constant Vaginal discharge: none Vaginal bleeding: none Urinary symptoms: Frequency Exacerbating factors: none Relieving factors: medication (has been taking tylenol and motrin) Associated symptoms: abdominal pain, weakness, nausea and back pain Treatment prior to arrival: none Related Data Home Medications Medication Instructions Recorded Confirmed ibuprofen 800 mg tablet 800 mg PO DAILY PRN pain 11/25/21 03/30/22 lidocaine 5 % topical patch 1 patch topical DAILY PRN Pain 11/25/21 03/30/22 (Lidoderm) Previous Rx's Medication Instructions Recorded amlodipine 5 mg tablet 5 mg PO DAILY 90 days #90 tabs 12/31/21 allopurinol 100 mg tablet 100 mg PO DAILY 90 days #90 tabs 01/15/22 pyridoxine (vitamin B6) 100 mg 100 mg PO DAILY 90 days #90 tabs 01/15/22 tablet lorazepam 0.5 mg tablet 0.5 mg PO TID PRN anxiety 30 days 02/17/22 #90 tabs cefuroxime axetil 250 mg tablet 250 mg PO BID 10 days #20 tabs 04/01/22 ondansetron 4 mg disintegrating 4 mg PO Q8H PRN nausea and 04/01/22 tablet vomiting #10 tabs oxycodone 5 mg tablet 5 mg PO Q8H PRN severe pain (scale 04/01/22 score 7-10) #6 tabs Allergies Allergy/AdvReac Type Severity Reaction Status Date / Time celecoxib [From Celebrex] Allergy Intermediate ITCHING Verified 03/30/22 17:00 Effexor Allergy Unknown itching Verified 03/30/22 17:00 metronidazole Allergy Unknown rash Verified 03/30/22 17:00 sertraline [Zoloft] Allergy Unknown itching Verified 03/30/22 17:00 Sulfa (Sulfonamide Allergy Unknown unknown, Verified 03/30/22 17:00 Antibiotics) yeast infection sulfamethoxazole Allergy Unknown ITCHING Verified 03/30/22 17:00 [From BACTRIM] trimethoprim [From BACTRIM] Allergy Unknown ITCHING Verified 03/30/22 17:00 naproxen [From Naprosyn] Allergy Itching Verified 03/30/22 17:00 tramadol AdvReac Intermediate Nausea Verified 03/30/22 17:00 alprazolam [From XANAX] AdvReac Mild CONFUSION Verified 03/30/22 17:00 Review of Systems Review of Systems: Yes all other systems are reviewed and are negative PMFSH Past Medical History Medical History Anxiety Benign essential hypertension Gestational HTN Horseshoe kidney Lumbar degenerative disc disease Obesity (BMI 30-39.9) Pyelonephritis Renal calculi Surgical History Back pain with history of spinal surgery H/O wrist surgery History of extraction of renal calculus Family History Family History Father HIV (human immunodeficiency virus infection) Mother CVD (cardiovascular disease) Maternal Grandmother Breast cancer Diabetes Hypertension Maternal Grandfather Prostate cancer Paternal Grandmother CVD (cardiovascular disease) Paternal Grandfather Prostate cancer Sister In good health CHF (congestive heart failure) Son In good health Social History Social History Household Members: Spouse Housing: Apartment Are you a primary respiratory care program director to a significant other at home: No Do you presently have visiting nurse or other home services: No Alcohol intake: current Alcohol intake frequency: holidays/special occasions only Patient Tobacco Use Status: Never used Tobacco e-Cigarette/Vaping Use: Never Used Second Hand Smoke Exposure: No Advance Directives: No Patient : No service: No (HPD) Current occupational status: employed Cognitive needs: No Hearing needs: No Vision needs: No Physical Exam Vital Signs: Vital Signs: Last Vital Signs Temp 97.4 F 04/01/22 10:42 Pulse 80 04/01/22 12:13 Resp 19 04/01/22 12:13 BP 127/77 04/01/22 12:13 Pulse Ox 100 04/01/22 12:13 O2 Del Method 04/01/22 12:13 BMI result Body Mass Index 32.1 Appearance: Alert. Oriented X3. No acute distress. Eyes: Pupils equal, round and reactive to light. ENT: Pharynx normal. Neck: Normal inspection. Neck supple. CVS: Normal heart rate and rhythm. Pulses normal. Respiratory: No respiratory distress. Breath sounds normal. Abdomen: Soft and nontender. +BS x4. +CVA tenderness on the right Skin: Skin warm and dry. Normal skin color. Normal skin turgor. No rashes. Extremities: No lower extremity edema. Neuro: Oriented X 3. No motor deficit. No sensory deficit. Course Course Course Narrative: 41 yo female with extensive urologic history requiring intervention x8 per patient report (all on the right side) presenting with 9 days of right sided flank pain. Labs and CT scan ordered. Last CT back in Nov. Will treat with IVF, zofran and 1 mg IV dilaudid, will reassess. Reevaluation(s) Reevaluation #1: Pain improve, down to a 4/10. Asking for Tylenol. Her urinalysis is consistent with infection. In the past she has history of E coli that is sensitive to cephalosporins. Will give her a dose of IV Rocephin. She is not septic. Reevaluation #2: No leukocytosis. Pain is improved. Lactic acid is normal. Given her CVA tenderness and positive UTI will treat for pyelonephritis. She is stable to go home with oral antibiotics and plan to follow-up with Dr. Addison. Stable for DC. Patient agrees with plan. Medications Administered Discontinued Medications Generic Name Dose Route Start Last Admin Trade Name Lauri PRN Reason Stop Dose Admin Acetaminophen 975 mg 04/01/22 10:21 04/01/22 10:40 Acetaminophen 325 Mg Tablet PO 04/01/22 10:22 975 mg ONCE ONE Administration Hydromorphone HCl 1 mg 04/01/22 09:05 04/01/22 09:15 Hydromorphone Hcl 1 Mg/Ml Syringe IVPUSH 04/01/22 09:06 1 mg ONCE ONE Administration Protocol Sodium Chloride 1,000 mls @ 999 mls/hr 04/01/22 09:00 04/01/22 10:28 Ns IVCONT 04/01/22 10:00 Infused .Q1H1M TONA Infusion Ceftriaxone Sodium 1 gm/ 50 mls @ 100 mls/hr 04/01/22 09:50 04/01/22 10:47 Sodium Chloride IV 04/01/22 10:19 Infused ONCE ONE Infusion Ondansetron HCl 4 mg 04/01/22 08:58 04/01/22 09:15 Ondansetron Hcl 4 Mg/2 Ml Vial IVPUSH 04/01/22 08:59 4 mg ONCE ONE Administration Medical Decision Making Medical Decision Making [facility] Narrative: 31-year-old female with extensive urologic history presenting to the ER with right flank pain. History of horseshoe kidney, pyelo, recurrent kidney stones requiring intervention. Not tachycardic or febrile on arrival. CT scan labs ordered. Differential Diagnosis Differential Diagnoses: The differential diagnosis associated with the presentation includes UTI, pyelonephritis, kidney stone, obstructive of uropathy, gallbladder etiology, pancreatitis, musculoskeletal pain Admission/Observation Consideration of admission/observation: Escalation of care including admission/observation considered Considered admission however patient has no leukocytosis or fever. She is not vomiting. She is able to tolerate oral antibiotics and go home with treatment for pyelonephritis. Lab Data [facility] Lab Attestation statement: I reviewed the patient's lab results. No leukocytosis, normal renal function. 04/01/22 09:06 04/01/22 09:06 Labs: Lab Results 04/01/22 04/01/22 04/01/22 Range/Units 09:06 09:06 09:06 WBC 8.6 (4.8-10.8) X10*3/uL RBC 5.00 (4.20-5.50) X10*6/uL Hgb 14.9 (12.0-16.0) g/dl Hct 46.1 (37.0-47.0) % MCV 92.2 (80.0-98.0) fL MCH 29.8 (27.0-33.0) pg MCHC 32.3 (31.0-35.0) g/dl RDW 12.6 (11.0-16.0) % Plt Count 331 (160-400) X10*3/uL MPV 10.7 (9.4-12.3) fL Immature Gran % (Auto) 0.3 (0.0-0.4) % Neut % (Auto) 72.5 (45-73) % Lymph % (Auto) 18.7 L (20-40) % [place] % (Auto) 6.7 (2-11) % Eos % (Auto) 1.3 (0-4) % Baso % (Auto) 0.5 (0-2) % Lymph # (Auto) 1.6 (1.2-4.9) X10*3/uL [place] # (Auto) 0.6 (0.1-1.2) X10*3/uL Eos # (Auto) 0.1 (0.0-0.4) X10*3/uL Baso # (Auto) 0.0 (0.0-0.2) X10*3/uL Abs Immat Gran (auto) 0.03 (0.00-0.03) X10*3/uL Absolute Neuts (auto) 6.2 (2.0-8.3) x10*3/uL Absolute Nucleated RBC 0.000 (0.0-0.012) X10*3/uL Nucleated RBC % (auto) 0.0 (0.0-0.2) /100WBC Sodium 139 (135-145) mmol/L Potassium 4.1 (3.3-5.1) mmol/L Chloride 105 (96-108) mmol/L Carbon Dioxide 26 (22-29) mmol/L Anion Gap 12 (12-20) BUN 12 (9-16) mg/dL Creatinine 0.85 (0.5-1.4) mg/dL Estim Creat Clear Calc 96.6 Estimated GFR > 60 Random Glucose 124 H (60-115) mg/dL Lactic Acid (0.5-2.0) mmol/L Calcium 8.9 (8.4-10.2) mg/dL Magnesium 2.1 (1.6-2.6) mg/dL Total Bilirubin 0.7 (0.0-1.0) mg/dL Direct Bilirubin 0.2 (0.0-0.5) mg/dL AST 20 (5-31) U/L ALT 16 (0-31) U/L Alkaline Phosphatase 75 (39-117) U/L Total Protein 7.3 (6.5-8.0) g/dL Albumin 4.1 (3.5-5.0) g/dL Urine Color Urine Appearance Urine pH (5.0-9.0) Ur Specific [place] (1.005-1.025) Urine Protein (Neg-Trace) mg/dL Urine Glucose (UA) (Negative) mg/dL Urine Ketones (Negative) mg/dL Urine Blood (Negative) Urine Nitrite (Negative) Ur Leukocyte Esterase (Negative) Urine RBC (0-2) /HPF Urine WBC (0-5) /HPF Ur Squamous Epith Cells (0-2) /HPF Urine Bacteria (None Seen) Hyaline Casts (0-2) /LPF Urine Test (NEGATIVE) COVID-19 (JERRELL) Negative (Negative) COVID-19 Clin Com See Note 04/01/22 04/01/22 04/01/22 Range/Units 09:06 09:06 10:10 WBC (4.8-10.8) X10*3/uL RBC (4.20-5.50) X10*6/uL Hgb (12.0-16.0) g/dl Hct (37.0-47.0) % MCV (80.0-98.0) fL MCH (27.0-33.0) pg MCHC (31.0-35.0) g/dl RDW (11.0-16.0) % Plt Count (160-400) X10*3/uL MPV (9.4-12.3) fL Immature Gran % (Auto) (0.0-0.4) % Neut % (Auto) (45-73) % Lymph % (Auto) (20-40) % [place] % (Auto) (2-11) % Eos % (Auto) (0-4) % Baso % (Auto) (0-2) % Lymph # (Auto) (1.2-4.9) X10*3/uL [place] # (Auto) (0.1-1.2) X10*3/uL Eos # (Auto) (0.0-0.4) X10*3/uL Baso # (Auto) (0.0-0.2) X10*3/uL Abs Immat Gran (auto) (0.00-0.03) X10*3/uL Absolute Neuts (auto) (2.0-8.3) x10*3/uL Absolute Nucleated RBC (0.0-0.012) X10*3/uL Nucleated RBC % (auto) (0.0-0.2) /100WBC Sodium (135-145) mmol/L Potassium (3.3-5.1) mmol/L Chloride (96-108) mmol/L Carbon Dioxide (22-29) mmol/L Anion Gap (12-20) BUN (9-16) mg/dL Creatinine (0.5-1.4) mg/dL Estim Creat Clear Calc Estimated GFR Random Glucose (60-115) mg/dL Lactic Acid 0.7 (0.5-2.0) mmol/L Calcium (8.4-10.2) mg/dL Magnesium (1.6-2.6) mg/dL Total Bilirubin (0.0-1.0) mg/dL Direct Bilirubin (0.0-0.5) mg/dL AST (5-31) U/L ALT (0-31) U/L Alkaline Phosphatase (39-117) U/L Total Protein (6.5-8.0) g/dL Albumin (3.5-5.0) g/dL Urine Color Yellow Urine Appearance Cloudy Urine pH 6.5 (5.0-9.0) Ur Specific [place] 1.025 (1.005-1.025) Urine Protein Trace (Neg-Trace) mg/dL Urine Glucose (UA) Negative (Negative) mg/dL Urine Ketones Trace (Negative) mg/dL Urine Blood Trace H (Negative) Urine Nitrite Negative (Negative) Ur Leukocyte Esterase Large (3+) H (Negative) Urine RBC 0-2 (0-2) /HPF Urine WBC 21-50 H (0-5) /HPF Ur Squamous Epith Cells 11-20 (0-2) /HPF Urine Bacteria 4+ (None Seen) Hyaline Casts 3-5 (0-2) /LPF Urine Test NEGATIVE (NEGATIVE) COVID-19 (JERRELL) (Negative) COVID-19 Clin Com Independent Interpretation I performed an independent interpretation of an: CT Scan Interpretation: No visualized kidney stone on the CT scan. No perinephric stranding. Radiology Impression Discussion of test interpretation with radiology: I have reviewed the radiologist's reading. Radiologist Impression: IMPRESSION: 1.? Suggestion of mild mucosal thickening of the descending colon along its proximal aspect versus underdistention. Correlation with symptomatology. 2.? Redemonstration of horseshoe kidney with mild bilateral pelvic fullness. No nephrolithiasis or hydronephrosis. External Record Review External record reviewed: Office record, Outpatient record, Prior outpatient labs and Prior outpatient radiology Prescription Management I considered prescription management with: Pain Medication and Antibiotic Will give a short course of oxycodone for severe pain, treat with 10 days of antibiotics for pyelonephritis. She has a history of E coli that is sensitive to cephalosporins. Chronic Conditions Patient?s care impacted by: Hypertension and Other (Recurrent kidney stones, horseshoe kidney) Critical Care Time Critical Care Time Critical Care Time: No Discharge Plan Discharge Clinical Impression: Pyelonephritis Patient Disposition: Home, Self-Care Instructions: Kidney Infection (ED) Additional Instructions: Your CT scan did not show any kidney stones. You are being treated for a kidney infection. Take the prescribed antibiotics as directed, complete the entire course and do not miss any doses. Take the prescribed oxycodone as needed for severe pain only. Take Motrin and Tylenol as needed for [id number] pain. Rest and stay hydrated, make sure drinking plenty of water. Follow-up with your urologist. If you develop new or worsening symptoms call 911 or come back to the ER for further evaluation. Prescriptions: New cefuroxime axetil 250 mg tablet 250 mg PO BID 10 Days Qty: 20 0RF oxycodone 5 mg tablet 5 mg PO Q8H PRN (Reason: severe pain (scale score 7-10)) Qty: 6 0RF Rx Instructions: Partial Fill upon patient request. ondansetron 4 mg tablet,disintegrating 4 mg PO Q8H PRN (Reason: nausea and vomiting) Qty: 10 0RF No Action amlodipine 5 mg tablet 5 mg PO DAILY 90 Days Qty: 90 1RF lorazepam 0.5 mg tablet 0.5 mg PO TID PRN (Reason: anxiety) 30 Days Qty: 90 0RF ibuprofen 800 mg tablet 800 mg PO DAILY PRN (Reason: pain) Rx Instructions: Take with food lidocaine [Lidoderm] 5 % adhesive patch,medicated 1 patch topical DAILY PRN (Reason: Pain) Rx Instructions: leave on most painful area for up to 12 hrs pyridoxine (vitamin B6) 100 mg tablet 100 mg PO DAILY 90 Days Qty: 90 3RF allopurinol 100 mg tablet 100 mg PO DAILY 90 Days Qty: 90 1RF Referrals: [facility] [Provider Group]
[2022-04-01] MEDS: HYDROmorphone HCl 1 MG/ML SYRINGE IVPUSH (09:15)
[2022-04-01] MEDS: ondansetron HCL 4 MG/2 ML VIAL IVPUSH (09:15)
[2022-04-01 09:16] LABS: MANUAL DIFF FLAG NO
[2022-04-01] MEDS: 0.9 % Sodium Chloride 1,000 ML 999 ML IVCONT (09:16)
[2022-04-01 09:21] LABS: Basophils Percent Auto 0.5 % (0-2); Eosinophils Absolute Auto 0.1 X10*3/uL (0.0-0.4); Eosinophils Percent Auto 1.3 % (0-4); Hematocrit 46.1 % (37.0-47.0); Hemoglobin 14.9 g/dl (12.0-16.0); Imm Gran Abs Auto 0.03 X10*3/uL (0.00-0.03); Imm Gran Pct Auto 0.3 % (0.0-0.4); Lymphocytes Absolute Auto 1.6 X10*3/uL (1.2-4.9); Lymphocytes Percent Auto 18.7 % (20-40); Mean Corpuscular HGB Conc 32.3 g/dl (31.0-35.0); Mean Corpuscular Hemoglobin 29.8 pg (27.0-33.0); Mean Corpuscular Volume 92.2 fL (80.0-98.0); Mean Platelet Volume 10.7 fL (9.4-12.3); Monocytes Absolute Auto 0.6 X10*3/uL (0.1-1.2); Monocytes Percent Auto 6.7 % (2-11); Neutrophils Absolute Auto 6.2 x10*3/uL (2.0-8.3); Neutrophils Percent Auto 72.5 % (45-73); Platelet Count 331 X10*3/uL (160-400); Red Cell Distribution Width 12.6 % (11.0-16.0); White Blood Count 8.6 X10*3/uL (4.8-10.8)
[2022-04-01 09:22] LABS: Appearance Urine Cloudy; Color Urine Yellow; Glucose Urine UA Negative (Negative); Leukocyte Esterase Urine Large (3+) (Negative); Nitrite Urine Negative (Negative); PH 6.5 (5.0-9.0); Specific Gravity - Urine 1.025 (1.005-1.025); UMIC TRIGGER UACC YES; Urine Blood Trace (Negative); Urine Ketones Trace mg/dL (Negative); Urine Protein Trace mg/dL (Neg-Trace)
[2022-04-01 09:24] LABS: UPreg QC Valid YES; Urine Pregnancy NEGATIVE (NEGATIVE)
[2022-04-01 09:30] LABS: COVID-19 Test Negative (Negative); IDNOW Serial# 16C4AD1C
[2022-04-01 09:32] LABS: Bacteria Urine 4+ (None Seen); RBC Urine 0-2 /HPF (0-2); UACC Culture Trigger YES; WBC Urine 21-50 /HPF (0-5)
[2022-04-01] MEDS: cefTRIAXone sodium 1 GM in 0.9 % Sodium Chloride 50 ML IV (10:16)
[2022-04-01 10:17] LABS: Alanine Aminotransferase 16 U/L (0-31); Albumin Level 4.1 g/dL (3.5-5.0); Alkaline Phosphatase 75 U/L (39-117); Anion Gap 12 (12-20); Aspartate Amino Transferase 20 U/L (5-31); Bilirubin Direct 0.2 mg/dL (0.0-0.5); Bilirubin Total 0.7 mg/dL (0.0-1.0); Blood Urea Nitrogen 12 mg/dL (9-16); Calcium 8.9 mg/dL (8.4-10.2); Carbon Dioxide 26 mmol/L (22-29); Chloride 105 mmol/L (96-108); Creatinine Clr Calc Pharmacy 96.6; Estimated Glomerular Filt Rate > 60; Glucose Random 124 mg/dL (60-115); Magnesium 2.1 mg/dL (1.6-2.6); Potassium 4.1 mmol/L (3.3-5.1); Sodium 139 mmol/L (135-145); Total Protein 7.3 g/dL (6.5-8.0)
[2022-04-01 10:40] LABS: Lactic Acid 0.7 mmol/L (0.5-2.0)
[2022-04-01] MEDS: Acetaminophen 325 MG TABLET 975 MG PO (10:40)
[2022-04-01 10:42] VITALS: BP 137/84; PULSE 76; RESP 17; TEMP 36.3; O2SAT 100
[2022-04-01 12:13] VITALS: BP 127/77; PULSE 80; RESP 19; O2SAT 100
== END 2022-04-01 12:38 | disposition home or self-care (01) ==
PROVIDERS: Physician Assistant; Emergency Provider Student in an Organized Health Care Education/Training Program; PCP Internal Medicine
DX: N12 Tubulo-interstitial nephritis, not specified as acute or chronic (principal); M54.50 Low back pain, unspecified; R53.1 Weakness; Z20.822 Contact with and (suspected) exposure to COVID-19; Z20.828 Contact with and (suspected) exposure to other viral communicable diseases; Z79.899 Other long term (current) drug therapy
CPT/HCPCS: 36415; 74176; 80048; 80076; 81001; 81025; 83605; 83735; 85025; 87040; 87086; 87635; 96361; 96374; 96375; 99284; J0696; J1170; J2405

== ENCOUNTER 2022-04-02 07:56 | Outpatient (REF) | payer OTHER, SELFPAY ==
--- NOTE | ~2022-04-02 | MM_ITS ---
EXAMINATION: MM SCREENING DIGITAL BREAST TOMOSYNTHESIS, BILATERAL CLINICAL INFORMATION: Screening. Asymptomatic. The lifetime risk of breast cancer based on the Tyrer-Cuzick Model is 19%. COMPARISON: Mammography: 03/27/2021, 09/27/2018, 09/22/2018, 07/01/2016; right breast ultrasound 03/27/2021, left breast ultrasound 09/27/2018 TECHNIQUE: Digital breast tomosynthesis is performed in both the craniocaudal and mediolateral oblique views along with computer-aided detection (CAD). Synthesized 2D images are generated from the tomosynthesis. FINDINGS: The breasts are heterogeneously dense, which may obscure small masses (ACR BI-RADS breast composition Category c). There are no significant masses, abnormal calcifications, or other abnormalities. Parenchymal pattern is similar to prior studies. There is no developing density or architectural abnormality. There is a chronic circumscribed nodule mid outer left breast corresponding to cyst on prior ultrasound. There are some additional coarse calcifications mid upper outer left breast circumferentially arranged around an oil cyst on MLO tomography. The axilla and skin contours are unremarkable. There are bilateral nipple piercings. No significant changes. MM/MM tomosynthesis screening BI IMPRESSION: No mammographic evidence of malignancy. ASSESSMENT: BI-RADS 2: Benign RECOMMENDATION: Routine annual mammography screening. This patient's information was entered into a reminder system with a target due date for their next mammogram.
== END 2022-04-02 07:57 | disposition home or self-care (01) ==
LOC: HO.MAMMO 07:56
PROVIDERS: PCP Internal Medicine; Visit Provider Internal Medicine
DX: Z12.31 Encounter for screening mammogram for malignant neoplasm of breast (principal)
CPT/HCPCS: 77063; 77067

== ENCOUNTER 2022-04-14 14:19 | Outpatient (REF) | payer OTHER, SELFPAY ==
--- NOTE | ~2022-04-14 | US_ITS ---
EXAMINATION: US RETROPERITONEAL LIMITED (RENAL ONLY) CLINICAL INFORMATION: Flank pain, rule out renal stones. COMPARISON: CT scan of the abdomen and pelvis dated 04/01/2022, renal ultrasound dated 12/28/2021 TECHNIQUE: Multiple 2-D grayscale and Doppler ultrasound images of the kidneys were obtained.. FINDINGS: Known horseshoe kidney. Right and left components as below. RIGHT KIDNEY: 9.2 x 4.4 x 4.2 cm (SAG x AP x TRV). An interpolar echogenic focus measures 0.3 cm. No hydronephrosis. Color Doppler showed no abnormal vascular flow. LEFT KIDNEY: 12.1 x 4.4 x 4.5 cm (SAG x AP x TRV). No hydronephrosis or nephrolithiasis. Doppler showed no abnormal vascular flow. US/US renal BI IMPRESSION: Nonobstructing interpolar right intrarenal calculus/calcification. No hydronephrosis. Findings correlate with recent CT findings.
== END 2022-04-14 14:20 | disposition home or self-care (01) ==
LOC: HO.US 14:19
PROVIDERS: PCP Internal Medicine; Visit Provider Internal Medicine
DX: R10.9 Unspecified abdominal pain (principal)
CPT/HCPCS: 76775

== ENCOUNTER → 2022-05-18 14:42 | Outpatient (BNVA) | payer OTHER, SELFPAY | PROVIDERS: PCP Internal Medicine; Visit Provider Urology | DX: Z13.89 Encounter for screening for other disorder (principal) ==

== ENCOUNTER 2022-06-29 07:18 | Emergency (ER) | payer OTHER, SELFPAY ==
--- NOTE | ~2022-06-29 | XR_ITS ---
EXAMINATION: XR chest 2V CLINICAL INFORMATION: Chest pain COMPARISON: No prior chest x-ray available in our system for comparison at the time of this dictation. TECHNIQUE: XR chest 2V Lungs and Cecilia: Both lungs are clear. Pleura: Normal. Costophrenic angles are sharp. No pneumothorax. Heart: The heart is normal in size. Mediastinum: The mediastinum is within normal limits.. Bones: Skeletal structures included are normal for patient's age. XR/XR chest 2V IMPRESSION: No radiographic evidence of acute cardiopulmonary disease.
--- NOTE | 2022-06-29 07:21 | ECG_ITS ---
Test Reason : cp Blood Pressure : / mmHG Vent. Rate : 077 BPM Atrial Rate : 077 BPM P-R Int : 148 ms QRS Dur : 072 ms QT Int : 384 ms P-R-T Axes : 055 039 041 degrees QTc Int : 434 ms Normal sinus rhythm Normal ECG When compared with ECG of 17-APR-2021 23:43, No significant change was found Referred By: Kimberli Montelongo Electronically Signed By:Ronni Glover
--- NOTE | 2022-06-29 07:43 | ED_ITS ---
HPI - Chest Pain General Chief Complaint: Chest Pain Stated Complaint: Chest pain/L side pain/Dizziness Time Seen by Provider: 06/29/22 07:23 Source: patient Mode of arrival: ambulatory History of Present Illness HPI narrative: 42-year-old female with history of anxiety/panic attacks presents with 3-4 days left-sided chest discomfort that extends from the left base of her neck down into the anterior chest and into the left upper extremity. 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 Patient endorses that she is under significant amount of stress currently due to her having recently left her at the end of April and that her significant other continues to text her, sometimes saying nice things and sometimes saying mean things. Patient is noted to be tearful while explaining. Related Data Home Medications Medication Instructions Recorded Confirmed ibuprofen 800 mg tablet 800 mg PO DAILY PRN pain 11/25/21 05/18/22 lidocaine 5 % topical patch 1 patch topical DAILY PRN Pain 11/25/21 05/18/22 (Lidoderm) Previous Rx's Medication Instructions Recorded allopurinol 100 mg tablet 100 mg PO DAILY 90 days #90 tabs 01/15/22 pyridoxine (vitamin B6) 100 mg 100 mg PO DAILY 90 days #90 tabs 01/15/22 tablet cefuroxime axetil 250 mg tablet 250 mg PO BID 10 days #20 tabs 04/01/22 fluconazole 150 mg tablet 150 mg PO Q3D 2 doses #2 tabs 04/01/22 (Diflucan) ondansetron 4 mg disintegrating 4 mg PO Q8H PRN nausea and 04/01/22 tablet vomiting #10 tabs oxycodone 5 mg tablet 5 mg PO Q8H PRN severe pain (scale 04/01/22 score 7-10) #6 tabs amlodipine 5 mg tablet 5 mg PO DAILY 90 days #90 tabs 04/15/22 tizanidine 4 mg tablet 4 mg PO Q8H PRN muscle spasms/back 04/19/22 pain #30 tabs lorazepam 0.5 mg tablet 0.5 mg PO TID PRN anxiety 30 days 04/28/22 #90 tabs Allergies Allergy/AdvReac Type Severity Reaction Status Date / Time celecoxib [From Celebrex] Allergy Intermediate ITCHING Verified 06/29/22 07:52 Effexor Allergy Unknown itching Verified 06/29/22 07:52 metronidazole Allergy Unknown rash Verified 06/29/22 07:52 sertraline [Zoloft] Allergy Unknown itching Verified 06/29/22 07:52 Sulfa (Sulfonamide Allergy Unknown unknown, Verified 06/29/22 07:52 Antibiotics) yeast infection sulfamethoxazole Allergy Unknown ITCHING Verified 06/29/22 07:52 [From BACTRIM] trimethoprim [From BACTRIM] Allergy Unknown ITCHING Verified 06/29/22 07:52 naproxen [From Naprosyn] Allergy Itching Verified 06/29/22 07:52 tramadol AdvReac Intermediate Nausea Verified 06/29/22 07:52 alprazolam [From XANAX] AdvReac Mild CONFUSION Verified 06/29/22 07:52 Review of Systems Review of Systems: Pertinent positives and negatives as stated in HPI [facility] Past Medical History Source: nursing notes reviewed Medical History Anxiety Benign essential hypertension Gestational HTN Horseshoe kidney Lumbar degenerative disc disease Obesity (BMI 30-39.9) Pyelonephritis Renal calculi Surgical History Back pain with history of spinal surgery H/O wrist surgery History of extraction of renal calculus Family History Family History Father HIV (human immunodeficiency virus infection) Mother CVD (cardiovascular disease) Maternal Grandmother Breast cancer Diabetes Hypertension Maternal Grandfather Prostate cancer Paternal Grandmother CVD (cardiovascular disease) Paternal Grandfather Prostate cancer Sister In good health CHF (congestive heart failure) Son In good health Social History Social History Household Members: Spouse Housing: Apartment Are you a primary wound care rn to a significant other at home: No Do you presently have visiting nurse or other home services: No Alcohol intake: current Alcohol intake frequency: holidays/special occasions only Patient Tobacco Use Status: Never used Tobacco Smoked in Last 30 Days: No e-Cigarette/Vaping Use: Never Used Second Hand Smoke Exposure: No Use of substances other than those prescribed or required for medical reasons: No Advance Directives: No Advance Directives Information Provided: No Patient : No service: No (HPD) Current occupational status: employed Cognitive needs: No Hearing needs: No Vision needs: No Physical Exam Vital Signs: Vital Signs: Last Vital Signs Temp 98.2 F 06/29/22 07:47 Pulse 64 06/29/22 07:47 Resp 12 06/29/22 07:47 BP 139/84 06/29/22 07:47 Pulse Ox 98 06/29/22 07:47 O2 Del Method Room Air 06/29/22 07:47 BMI result Body Mass Index 29.7 VITAL SIGNS: Reviewed. GENERAL: Well developed, well nourished, anxious and tearful. HEAD: Normocephalic/atraumatic EYES: PERRLA, EOMI EARS: Ext canals without abnormality NOSE: Nares patent bilateral OROPHARYNX: no oral lesions noted, posterior pharynx clear NECK: Supple, no adenopathy LUNGS: Normal breath sounds. No adventitious sounds or accessory muscle use. CARDIOVASCULAR: Regular rate and rhythm without noted murmurs, symmetrical pulses bilaterally ABDOMEN: Soft, non-tender, non-distended with bowel sounds. MUSCULOSKELETAL: No tenderness, deformities, or effusions noted on gross inspection. EXTREMITIES: No cyanosis, clubbing or edema. SKIN: Inspection of the skin reveals no rashes NEUROLOGIC: Alert and oriented x 4. Strength and sensation to light touch were grossly intact x 4. Medications Administered Discontinued Medications Generic Name Dose Route Start Last Admin Trade Name Freq PRN Reason Stop Dose Admin Acetaminophen 975 mg 06/29/22 08:41 06/29/22 08:46 Acetaminophen 325 Mg Tablet PO 06/29/22 08:42 975 mg ONCE ONE Administration Ondansetron HCl 4 mg 06/29/22 08:39 06/29/22 08:48 Ondansetron Odt 4 Mg Tab.Rapdis TRANSLINGU 06/29/22 08:40 4 mg ONCE ONE Administration Medical Decision Making Medical Decision Making [facility] Narrative: 42-year-old female with history and clinical presentation suggestive of possible anxiety attack/panic attack but will rule out any cardiopulmonary etiology for patient's presenting complaint and also suspect a component of cervical radiculopathy. PERC negative. I reviewed all investigations my interpretation is that patient has had an anxiety/panic attack she is feeling much better. I strongly recommended to the patient that she should pursue more intensive therapy/counseling sessions with her provider given her current stress levels. Differential Diagnosis Please see the discussion above Lab Data Please see the discussion above 06/29/22 07:53 06/29/22 07:53 Labs: Lab Results 06/29/22 06/29/22 06/29/22 Range/Units 07:53 07:53 07:53 WBC 7.8 (4.8-10.8) X10*3/uL RBC 4.74 (4.20-5.50) X10*6/uL Hgb 14.4 (12.0-16.0) g/dl Hct 44.2 (37.0-47.0) % MCV 93.2 (80.0-98.0) fL MCH 30.4 (27.0-33.0) pg MCHC 32.6 (31.0-35.0) g/dl RDW 12.5 (11.0-16.0) % Plt Count 321 (160-400) X10*3/uL MPV 10.7 (9.4-12.3) fL Immature Gran % (Auto) 0.1 (0.0-0.4) % Neut % (Auto) 56.9 (45-73) % Lymph % (Auto) 29.3 (20-40) % [place] % (Auto) 9.8 (2-11) % Eos % (Auto) 3.0 (0-4) % Baso % (Auto) 0.9 (0-2) % Lymph # (Auto) 2.3 (1.2-4.9) X10*3/uL [place] # (Auto) 0.8 (0.1-1.2) X10*3/uL Eos # (Auto) 0.2 (0.0-0.4) X10*3/uL Baso # (Auto) 0.1 (0.0-0.2) X10*3/uL Abs Immat Gran (auto) 0.01 (0.00-0.03) X10*3/uL Absolute Neuts (auto) 4.4 (2.0-8.3) x10*3/uL Absolute Nucleated RBC 0.000 (0.0-0.012) X10*3/uL Nucleated RBC % (auto) 0.0 (0.0-0.2) /100WBC Sodium 143 (135-145) mmol/L Potassium 4.6 (3.3-5.1) mmol/L Chloride 107 (96-108) mmol/L Carbon Dioxide 27 (22-29) mmol/L Anion Gap 14 (12-20) BUN 9 (9-16) mg/dL Creatinine 0.85 (0.5-1.4) mg/dL Estim Creat Clear Calc 91.9 Estimated GFR > 60 Random Glucose 111 (60-115) mg/dL Calcium 9.1 (8.4-10.2) mg/dL Total Bilirubin 0.6 (0.0-1.0) mg/dL AST 18 (5-31) U/L ALT 16 (0-31) U/L Alkaline Phosphatase 69 (39-117) U/L Troponin I High Sens < 2.7 (<3.5-17.0) ng/L Total Protein 6.7 (6.5-8.0) g/dL Albumin 4.0 (3.5-5.0) g/dL Beta HCG, Quant < 2 mIU/mL Urine Color Urine Appearance Urine pH (5.0-9.0) Ur Specific [place] (1.005-1.025) Urine Protein (Neg-Trace) mg/dL Urine Glucose (UA) (Negative) mg/dL Urine Ketones (Negative) mg/dL Urine Blood (Negative) Urine Nitrite (Negative) Ur Leukocyte Esterase (Negative) Urine RBC (0-2) /HPF Urine WBC (0-5) /HPF Ur Squamous Epith Cells (0-2) /HPF Urine Bacteria (None Seen) Hyaline Casts (0-2) /LPF 06/29/22 Range/Units 08:37 WBC (4.8-10.8) X10*3/uL RBC (4.20-5.50) X10*6/uL Hgb (12.0-16.0) g/dl Hct (37.0-47.0) % MCV (80.0-98.0) fL MCH (27.0-33.0) pg MCHC (31.0-35.0) g/dl RDW (11.0-16.0) % Plt Count (160-400) X10*3/uL MPV (9.4-12.3) fL Immature Gran % (Auto) (0.0-0.4) % Neut % (Auto) (45-73) % Lymph % (Auto) (20-40) % [place] % (Auto) (2-11) % Eos % (Auto) (0-4) % Baso % (Auto) (0-2) % Lymph # (Auto) (1.2-4.9) X10*3/uL [place] # (Auto) (0.1-1.2) X10*3/uL Eos # (Auto) (0.0-0.4) X10*3/uL Baso # (Auto) (0.0-0.2) X10*3/uL Abs Immat Gran (auto) (0.00-0.03) X10*3/uL Absolute Neuts (auto) (2.0-8.3) x10*3/uL Absolute Nucleated RBC (0.0-0.012) X10*3/uL Nucleated RBC % (auto) (0.0-0.2) /100WBC Sodium (135-145) mmol/L Potassium (3.3-5.1) mmol/L Chloride (96-108) mmol/L Carbon Dioxide (22-29) mmol/L Anion Gap (12-20) BUN (9-16) mg/dL Creatinine (0.5-1.4) mg/dL Estim Creat Clear Calc Estimated GFR Random Glucose (60-115) mg/dL Calcium (8.4-10.2) mg/dL Total Bilirubin (0.0-1.0) mg/dL AST (5-31) U/L ALT (0-31) U/L Alkaline Phosphatase (39-117) U/L Troponin I High Sens (<3.5-17.0) ng/L Total Protein (6.5-8.0) g/dL Albumin (3.5-5.0) g/dL Beta HCG, Quant mIU/mL Urine Color Yellow Urine Appearance Clear Urine pH 6.5 (5.0-9.0) Ur Specific [place] 1.015 (1.005-1.025) Urine Protein Negative (Neg-Trace) mg/dL Urine Glucose (UA) Negative (Negative) mg/dL Urine Ketones Negative (Negative) mg/dL Urine Blood Negative (Negative) Urine Nitrite Negative (Negative) Ur Leukocyte Esterase Trace H (Negative) Urine RBC 0-2 (0-2) /HPF Urine WBC 0-5 (0-5) /HPF Ur Squamous Epith Cells 3-5 (0-2) /HPF Urine Bacteria Trace (None Seen) Hyaline Casts 0-2 (0-2) /LPF Independent Interpretation I performed an independent interpretation of an: EKG Interpretation: Normal sinus rhythm, HR-77, no STEMI, CT/QRS/QTC is within normal limits. Radiology Impression Radiologist Impression: My interpretation is in agreement with radiology's impression of the imaging studies. Discharge Plan Discharge Clinical Impression: Atypical chest pain, Panic attack Patient Disposition: Home, Self-Care Instructions: Chest Pain (ED), Anxiety (ED), Panic Attack (ED) Additional Instructions: 1. Resume all home medications as prescribed. 2. Please follow-up with primary care provider in the next 1-2 days for re- evaluation further outpatient management. Return to the ER for any worsening symptoms. Prescriptions: No Action amlodipine 5 mg tablet 5 mg PO DAILY 90 Days Qty: 90 1RF tizanidine 4 mg tablet 4 mg PO Q8H PRN (Reason: muscle spasms/back pain) Qty: 30 1RF lorazepam 0.5 mg tablet 0.5 mg PO TID PRN (Reason: anxiety) 30 Days Qty: 90 0RF cefuroxime axetil 250 mg tablet 250 mg PO BID 10 Days Qty: 20 0RF oxycodone 5 mg tablet 5 mg PO Q8H PRN (Reason: severe pain (scale score 7-10)) Qty: 6 0RF Rx Instructions: Partial Fill upon patient request. ondansetron 4 mg tablet,disintegrating 4 mg PO Q8H PRN (Reason: nausea and vomiting) Qty: 10 0RF fluconazole [Diflucan] 150 mg tablet 150 mg PO Q3D Qty: 2 0RF ibuprofen 800 mg tablet 800 mg PO DAILY PRN (Reason: pain) Rx Instructions: Take with food lidocaine [Lidoderm] 5 % adhesive patch,medicated 1 patch topical DAILY PRN (Reason: Pain) Rx Instructions: leave on most painful area for up to 12 hrs pyridoxine (vitamin B6) 100 mg tablet 100 mg PO DAILY 90 Days Qty: 90 3RF allopurinol 100 mg tablet 100 mg PO DAILY 90 Days Qty: 90 1RF Referrals: Elier Olmstead MD [Primary Care Provider] - Stand Alone Forms: Work/School Release
[2022-06-29 07:47] VITALS: BP 139/84; PULSE 64; RESP 12; TEMP 36.8; O2SAT 98; BMI 29.7
[2022-06-29 07:56] LABS: MANUAL DIFF FLAG NO
[2022-06-29 07:58] LABS: Basophils Absolute Auto 0.1 X10*3/uL (0.0-0.2); Basophils Percent Auto 0.9 % (0-2); Eosinophils Absolute Auto 0.2 X10*3/uL (0.0-0.4); Hematocrit 44.2 % (37.0-47.0); Hemoglobin 14.4 g/dl (12.0-16.0); Imm Gran Abs Auto 0.01 X10*3/uL (0.00-0.03); Imm Gran Pct Auto 0.1 % (0.0-0.4); Lymphocytes Absolute Auto 2.3 X10*3/uL (1.2-4.9); Lymphocytes Percent Auto 29.3 % (20-40); Mean Corpuscular HGB Conc 32.6 g/dl (31.0-35.0); Mean Corpuscular Hemoglobin 30.4 pg (27.0-33.0); Mean Corpuscular Volume 93.2 fL (80.0-98.0); Mean Platelet Volume 10.7 fL (9.4-12.3); Monocytes Absolute Auto 0.8 X10*3/uL (0.1-1.2); Monocytes Percent Auto 9.8 % (2-11); Neutrophils Absolute Auto 4.4 x10*3/uL (2.0-8.3); Neutrophils Percent Auto 56.9 % (45-73); Platelet Count 321 X10*3/uL (160-400); Red Blood Count 4.74 X10*6/uL (4.20-5.50); Red Cell Distribution Width 12.5 % (11.0-16.0); White Blood Count 7.8 X10*3/uL (4.8-10.8)
[2022-06-29 08:23] LABS: Troponin-I High Sensitivity < 2.7 ng/L (<3.5-17.0)
[2022-06-29 08:29] LABS: Alanine Aminotransferase 16 U/L (0-31); Alkaline Phosphatase 69 U/L (39-117); Anion Gap 14 (12-20); Aspartate Amino Transferase 18 U/L (5-31); Bilirubin Total 0.6 mg/dL (0.0-1.0); Blood Urea Nitrogen 9 mg/dL (9-16); Calcium 9.1 mg/dL (8.4-10.2); Carbon Dioxide 27 mmol/L (22-29); Chloride 107 mmol/L (96-108); Creatinine Clr Calc Pharmacy 91.9; Estimated Glomerular Filt Rate > 60; Glucose Random 111 mg/dL (60-115); HCG Quantitative < 2 mIU/mL; Potassium 4.6 mmol/L (3.3-5.1); Sodium 143 mmol/L (135-145); Total Protein 6.7 g/dL (6.5-8.0)
[2022-06-29] MEDS: Acetaminophen 325 MG TABLET 975 MG PO (08:46)
[2022-06-29] MEDS: Ondansetron ODT 4 MG TAB.RAPDIS TRANSLINGU (08:48)
[2022-06-29 08:53] LABS: Appearance Urine Clear; Color Urine Yellow; Glucose Urine UA Negative (Negative); Leukocyte Esterase Urine Trace (Negative); Nitrite Urine Negative (Negative); PH 6.5 (5.0-9.0); Specific Gravity - Urine 1.015 (1.005-1.025); UMIC TRIGGER UACC YES; Urine Blood Negative (Negative); Urine Ketones Negative (Negative); Urine Protein Negative (Neg-Trace)
[2022-06-29 08:55] LABS: Bacteria Urine Trace (None Seen); Hyaline Casts Urine 0-2 /LPF (0-2); RBC Urine 0-2 /HPF (0-2); WBC Urine 0-5 /HPF (0-5)
[2022-06-29 09:45] VITALS: BP 115/70; PULSE 62; RESP 14; TEMP 37; O2SAT 99
== END 2022-06-29 09:50 | disposition home or self-care (01) ==
PROVIDERS: Emergency Provider Student in an Organized Health Care Education/Training Program; PCP Internal Medicine
DX: R07.89 Other chest pain (principal); R42 Dizziness and giddiness; F41.0 Panic disorder [episodic paroxysmal anxiety]; F43.0 Acute stress reaction; Z79.899 Other long term (current) drug therapy
CPT/HCPCS: 36415; 71046; 80053; 81001; 84484; 84702; 85025; 93005; 99284; 99285

== ENCOUNTER 2022-07-09 09:02 | Outpatient (REF) | payer OTHER, SELFPAY ==
--- NOTE | ~2022-07-09 | XR_ITS ---
EXAMINATION: XR FOREARM, RIGHT CLINICAL INFORMATION: Pain right forearm. Previous right forearm surgery a few years ago. COMPARISON: Right forearm CT 09/29/2016 TECHNIQUE: AP and lateral views of the right forearm were obtained. Findings: There is a healed distal ulnar fracture which is stabilized with metallic plate and screws. The fracture has healed. There is no hardware loosening. No new fractures. No bony abnormality. The soft tissues are normal. XR/XR forearm RT 2V IMPRESSION: Healed distal ulnar fracture with hardware stabilizing the old fracture. No hardware malfunction seen. There is no new fracture seen.
== END 2022-07-09 09:03 | disposition home or self-care (01) ==
LOC: HO.XRAY 09:02
PROVIDERS: PCP Internal Medicine; Visit Provider Internal Medicine
DX: M79.631 Pain in right forearm (principal)
CPT/HCPCS: 73090

== ENCOUNTER 2022-09-20 13:44 | Outpatient (REF) | payer OTHER, SELFPAY ==
--- NOTE | ~2022-09-20 | XR_ITS ---
EXAMINATION: XR ANKLE, LEFT CLINICAL INFORMATION: Effusion, left ankle COMPARISON: None available. TECHNIQUE: AP, lateral, and mortise views of the left ankle. FINDINGS: No fracture. Alignment is anatomic. No erosions. Joint spaces are maintained. Soft tissues are normal. No joint effusion. Achilles enthesophyte is noted. XR/XR ankle LT min 3V IMPRESSION: No acute bony abnormality.
== END 2022-09-20 13:45 | disposition home or self-care (01) ==
LOC: HO.XRAY 13:44
PROVIDERS: PCP Internal Medicine; Visit Provider Internal Medicine
DX: M25.472 Effusion, left ankle (principal)
CPT/HCPCS: 73610

== ENCOUNTER 2022-09-27 13:02 | Outpatient (AMB) | payer OTHER, SELFPAY ==
[2022-09-27 13:04] VITALS: BP 118/80; PULSE 58; O2SAT 99; BMI 29.9
--- NOTE | 2022-09-27 13:04 | MHC.PC.OV ---
Vital Signs 09/27/22 13:04 Height 5 ft 6 in Weight 185 lb 7 oz BMI 29.9 BP 118/80 Blood Pressure Location Lt brachial Position Sitting Pulse 58 Pulse Source Pulse Oximeter Pulse Oximetry (%) 99 Oxygen Delivery Method Room Air Intake Visit Reasons: Follow up on ankle Education Department Chair Required: No Accompanied by: Self / Same As Patient Allergies celecoxib [From Celebrex] Allergy (Intermediate, Verified 11/11/22 22:07) ITCHING Effexor Allergy (Unknown, Verified 11/11/22 22:07) itching metronidazole Allergy (Unknown, Verified 11/11/22 22:07) rash sertraline [Zoloft] Allergy (Unknown, Verified 11/11/22 22:07) itching Sulfa (Sulfonamide Antibiotics) Allergy (Unknown, Verified 11/11/22 22:07) unknown, yeast infection sulfamethoxazole [From BACTRIM] Allergy (Unknown, Verified 11/11/22 22:07) ITCHING trimethoprim [From BACTRIM] Allergy (Unknown, Verified 11/11/22 22:07) ITCHING naproxen [From Naprosyn] Allergy (Verified 11/11/22 22:07) Itching tramadol Adverse Reaction (Intermediate, Verified 11/11/22 22:07) Nausea alprazolam [From XANAX] Adverse Reaction (Mild, Verified 11/11/22 22:07) CONFUSION Medication List - Last Reconciled 11/12/22 by Elier Olmstead MD amlodipine 5 mg PO DAILY 90 days diclofenac sodium 75 mg PO BID PRN ibuprofen 800 mg PO DAILY PRN ketorolac 10 mg PO TID PRN 5 days lidocaine 5% (Lidoderm) 1 patch topical DAILY PRN lorazepam 0.5 mg PO TID PRN 30 days off loading boot (Aircast off loading boot) As directed prednisone 40 mg (2 x 20 mg) PO DAILY 5 days pyridoxine (vitamin B6) 100 mg PO DAILY 90 days tamsulosin (Flomax) 0.4 mg PO DAILY 2 weeks Tobacco use date assessed: 09/27/22 Dental Screening Dental Screen Date: 09/27/22 Did you have a dental visit in the last 12 months?: No Did you have a dental problem in the last 6 months where you did not have access to dental care?: No Was dental information given to patient?: Patient has dentist HPI Follow up on ankle HPI Details Patient comes in today for follow up of her ankle injury Relates that she accidentally twisted her left ankle while she was coming out of the hospital last week on 09/20/22 and that she has been wearing a boot on her left ankle to help protect it since She requested for an x-ray of the left ankle for further evaluation - x-rays came out negative States that it has been a week now since her injury and that her left ankle feels no better at all from last week Notes that her ankle is still swollen and painful over both the medial and lateral sides of the ankle and that she can hardly put any weight on it because of the pain She has been taking some Ibuprofen lately but its affects are only temporary No other acute complaints or symptoms are noted [facility] Medical History HPV (human papilloma virus) infection Renal calculi Pyelonephritis Lumbar degenerative disc disease Horseshoe kidney Anxiety Obesity (BMI 30-39.9) Benign essential hypertension Gestational HTN Surgical History History of extraction of renal calculus Back pain with history of spinal surgery H/O wrist surgery Family History Father HIV (human immunodeficiency virus infection) Mother CVD (cardiovascular disease) Maternal Grandmother Breast cancer Diabetes Hypertension Maternal Grandfather Prostate cancer Paternal Grandmother CVD (cardiovascular disease) Paternal Grandfather Prostate cancer Sister In good health CHF (congestive heart failure) Son In good health Social History Household Members: Spouse Housing: Apartment Are you a primary home care aide to a significant other at home: No Do you presently have visiting nurse or other home services: No Alcohol intake: never Patient Tobacco Use Status: Never used Tobacco e-Cigarette/Vaping Use: Never Used Second Hand Smoke Exposure: No service: No (HPD) Current occupational status: employed Cognitive needs: No Hearing needs: No Vision needs: No Questionnaire PHQ-9 Over the last 2 weeks, how often have you been bothered by any of the following problems? 1. Little interest or pleasure in doing things: not at all 2. Feeling down, depressed, or hopeless: not at all 3. Trouble falling or staying asleep, or sleeping too much: not at all 4. Feeling tired or having little energy: not at all 5. Poor appetite or overeating: not at all 6. Feeling bad about yourself - or that you are a failure or have let yourself or your family down: not at all 7. Trouble concentrating on things, such as reading the newspaper or watching television: not at all 8. Moving or speaking so slowly that other people could have noticed. Or the opposite - being so fidgety or restless that you have been moving around a lot more than usual: not at all 9. Thoughts that you would be better off or of hurting yourself in some way: not at all Total score: 0 Depression Screening Interpretation: Negative 36115 - PHQ-9 Billing: Yes Source: Developed by Drs. Ole Ovalle, Jazzy Andrade, Sergio Lucio and colleagues, with an educational alex from [employer]. Thrive Questionnaire Date Thrive assessed: 09/27/22 I am a: Patient What is your living situation today?: I have a steady place to live Within the past 12 months, did the food you bought not last and you didn't have the money to get more?: Never true Within the past 12 months, did you worry whether your food would run out before you got money to buy more?: Never true Do you have trouble paying for medicines?: No Do you have trouble getting transportation to medical appointments?: No Do you have trouble paying your heating and electricity bill?: No Do you have trouble taking care of your child, family member or friend?: No Do you have trouble with day-to-day activities such as bathing, preparing meals, shopping, managing finances, etc.?: No Are you currently unemployed and looking for a job?: No Are you interested in more education?: No Please select the resources that you would like help with: None Currently or been in a relationship where the following occur: no concerns reported AUDIT C Alcohol Use Questionnaire (AUDIT-C) 1. How often do you have a drink containing alcohol?: Monthly or less 2. How many drinks containing alcohol do you have on a typical day when you are drinking?: 1 or 2 3. How often do you have six or more drinks on one occasion?: Never Total Score: 1 Score Reviewed/Action Taken: Yes EMMY-7 AMB Questionnaire EMMY-7 Date EMMY - 7 assessed: 09/27/22 Feeling nervous, anxious, or on edge: 0 = Not at all Not being able to stop or control worryin = Not at all Worrying too much about different things: 0 = Not at all Trouble relaxin = Not at all Being so restless that it is hard to sit still: 0 = Not at all Becoming easily annoyed or irritable: 0 = Not at all Feeling afraid as if something awful might happen: 0 = Not at all Total EMMY-7 score (0-4 normal; 5-9 mild; 10-14 moderate; 15-21 severe): 0 Source: Developed by Drs. Ole Ovalle, Jazzy Andrade, Sergio Lucio and colleagues, with an educational alex from [employer]. Review of Systems Const Denies fatigue, Denies fever(s) and Denies headache(s) ENT Denies dizziness, Denies headache(s) and Denies sore throat Card Denies chest pain, Denies palpitations and Denies dyspnea Resp Denies cough and Denies dyspnea GI Denies abdominal pain, Denies change in bowel habits, Denies nausea and Denies vomiting Denies nocturia and Denies dysuria Musc Reports back pain (lower back, on and off), Reports arthralgias (left ankle) and Reports joint swelling (left ankle) Neuro Denies dizziness and Denies headache(s) Endo Denies fatigue and Denies palpitations Physical exam (Primary Care) Vital Signs: Last Vital Signs Pulse 58 09/27/22 13:04 BP 118/80 09/27/22 13:04 Pulse Ox 99 09/27/22 13:04 Oxygen Delivery Method Room Air 09/27/22 13:04 BMI result Body Mass Index 29.9 Tobacco/Smoking Status: Tobacco use Status Tobacco use date assessed 09/27/22 09/27/22 13:12 Patient Tobacco Use Status Never used Tobacco 09/27/22 13:12 e-Cigarette/Vaping Use Never Used 09/27/22 13:12 PHQ-9: PHQ-9 Score PHQ-9: Total score 0 09/27/22 13:31 Depression Screening Interpretation: Negative Thrive Assessment: Date of Thrive Assessment Date Thrive assessed 09/27/22 09/27/22 13:12 Currently or been in a relationship where the following occur: no concerns reported Const General: no acute distress and alert Neck Neck: Yes no lymphadenopathy and Yes supple Resp Auscultation: clear to auscultation bilaterally, no rales and no wheezes Cardio Rate: regular rate Rhythm: regular rhythm Heart sounds: no murmurs GI Palpation (GI): Soft to palpation and nontender Auscultation: normal bowel sounds Extrem General: Yes no clubbing, cyanosis or edema Left lower extremity: ankle ((+) boot over the ankle) Details: tenderness and swelling Assessment and Plan Assessment & Plan (1) Pain and swelling of left ankle: Code(s): M25.572 - Pain in left ankle and joints of left foot; M25.472 - Effusion, left ankle Plan: Patient apparently twisted and sprained her ankle last week while coming out of the hospital - states that her left ankle has been painful and swollen since then X-rays of the ankle last week came out normal Due to no apparent improvement of her symptoms after a week, will refer her to Orthopedics for further evaluation and management Continue ibuprofen PRN Plan Follow up in 1 month Orders: Referrals Orthopedics Referral M25.572 - Pain in left ankle and joints of left foot, M25.472 - Effusion, left ankle Coding Level of Care Code Est Pt Level 3 (17326) Diagnoses Pain and swelling of left ankle M25.572; M25.472
== END 2022-09-27 13:42 | disposition home or self-care (01) ==
PROVIDERS: PCP Internal Medicine; Visit Provider Internal Medicine
DX: M25.572 Pain in left ankle and joints of left foot (principal); M25.472 Effusion, left ankle
CPT/HCPCS: 99213

== ENCOUNTER 2022-10-07 14:27 | Outpatient (AMB) | payer OTHER, SELFPAY ==
--- NOTE | 2022-10-07 14:34 | MHC.OFFVIS ---
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 Patient reports walking out from a fast food chain and mis stepped in to a hole in the entry way from the restaurant. Pain is more on the lateral aspect of the ankle and it moves to the medial side and sometimes sharp pain radiates up to her calf per patient. Having pain with boot on per patient. Allergies celecoxib [From Celebrex] Allergy (Intermediate, Verified 10/07/22 14:44) ITCHING Effexor Allergy (Unknown, Verified 10/07/22 14:44) itching metronidazole Allergy (Unknown, Verified 10/07/22 14:44) rash sertraline [Zoloft] Allergy (Unknown, Verified 10/07/22 14:44) itching Sulfa (Sulfonamide Antibiotics) Allergy (Unknown, Verified 10/07/22 14:44) unknown, yeast infection sulfamethoxazole [From BACTRIM] Allergy (Unknown, Verified 10/07/22 14:44) ITCHING trimethoprim [From BACTRIM] Allergy (Unknown, Verified 10/07/22 14:44) ITCHING naproxen [From Naprosyn] Allergy (Verified 10/07/22 14:44) Itching tramadol Adverse Reaction (Intermediate, Verified 10/07/22 14:44) Nausea alprazolam [From XANAX] Adverse Reaction (Mild, Verified 10/07/22 14:44) CONFUSION Medication List - Last Reconciled 10/07/22 by Katelyn Go PA-C amlodipine 5 mg PO DAILY 90 days diclofenac sodium 75 mg PO BID PRN ibuprofen 800 mg PO DAILY PRN lidocaine 5% (Lidoderm) 1 patch topical DAILY PRN lorazepam 0.5 mg PO TID PRN 30 days off loading boot (Aircast off loading boot) As directed pyridoxine (vitamin B6) 100 mg PO DAILY 90 days HPI 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 The patient was seen by her PCP on 09/27/2022 status post twisting her left ankle on 09/20/2022 where she reported she was leaving the hospital, per PCP note. X-rays of the ankle were obtained on 09/20/2022 and she was placed in a walking boot. While in the office today she reports she was walking out of a fast food chain ([facility]) and miss stepped in to a hole at the entry way of the restaurant. She claims the pain is located on the lateral aspect of the left ankle and it radiates to the medial side. She states occasionally she has a sharp pain that radiates into her calf. She reports pain being caused by the boot. Patient works at the [facility]. [facility] Medical History Anxiety Benign essential hypertension Gestational HTN Horseshoe kidney Lumbar degenerative disc disease Obesity (BMI 30-39.9) Pyelonephritis Renal calculi Surgical History Back pain with history of spinal surgery H/O wrist surgery History of extraction of renal calculus Family History Father HIV (human immunodeficiency virus infection) Mother CVD (cardiovascular disease) Maternal Grandmother Breast cancer Diabetes Hypertension Maternal Grandfather Prostate cancer Paternal Grandmother CVD (cardiovascular disease) Paternal Grandfather Prostate cancer Sister In good health CHF (congestive heart failure) Son In good health Social History Household Members: Spouse Housing: Apartment Are you a primary residential care facility manager to a significant other at home: No Do you presently have visiting nurse or other home services: No Alcohol intake: current Alcohol intake frequency: holidays/special occasions only Patient Tobacco Use Status: Never used Tobacco e-Cigarette/Vaping Use: Never Used Second Hand Smoke Exposure: No service: No (HPD) Current occupational status: employed Cognitive needs: No Hearing needs: No Vision needs: No Review of Systems Const All systems reviewed & are unremarkable except as noted in HPI and below Physical Exam Vital Signs: BMI result Body Mass Index 29.9 Const General: cooperative and no acute distress Orientation/consciousness: patient oriented x3 Resp Effort & Inspection: normal respiratory effort and able to speak in complete sentences Cardio Peripheral pulses: Peripheral pulses 2+ throughout Skin General skin exam: no rashes or lesions noted Neuro General: patient oriented x3 Extrem Other: Left ankle: Mild circumferential edema. Extreme tenderness to palpation over the tibia and peroneal tendons. Able to perform minimal dorsiflexion, plantarflexion, pronation, and supination with pain. NVI. Assessment & Plan Assessment & Plan (1) Grade 3 ankle sprain: Comment: Left ankle Code(s): S93.409A - Sprain of unspecified ligament of unspecified ankle, initial encounter Plan Ms. Mcdermott is a 42-year-old female who presents in the office today, as a new patient, for an evaluation of left ankle pain. The patient was seen by her PCP on 09/27/2022 status post twisting her left ankle on 09/20/2022 where she reported she was leaving the hospital, per PCP note. X-rays of the ankle were obtained on 09/20/2022 and she was placed in a walking boot. While in the office today she reports she was walking out of a [employer] chain ([employer]) and miss stepped in to a hole at the entry way of the restaurant. She claims the pain is located on the lateral aspect of the left ankle and it radiates to the medial side. She states occasionally she has a sharp pain that radiates into her calf. She reports pain being caused by the boot. Patient works at the [employer]. The patient was in a short walking boot that was provided to her at the Walk-in clinic. She should be in a tall walking boot due to this being an ankle injury. Therefore, she was given a tall walking boot, off the shelf, in the office today. She will weight bear as tolerated. She will be referred to physical therapy. She was educated to ice and elevate as much as possible. She was sent in a prescription for dicolfenac 75 mg BID PRN to the pharmacy. Follow up will be in 6 weeks, or sooner if needed. X-rays of the left ankle, obtained on 09/20/2022, revealed: No acute bony abnormality. Orders: Orders PT Evaluation and Treatment Today S93.409A - Sprain of unspecified ligament of unspecified ankle, initial encounter Medications: New diclofenac sodium 75 mg PO BID PRN 60 tabs 0RF pain Patient Instructions: Scribed for Katelyn Go PA-C by [employer], medical reimbursement manager, on 10/07/2022 at 2:29 pm, EST. Coding Level of Care Code New Pt Level 3 (73866) Diagnoses Grade 3 ankle sprain S93.409A
[2022-10-07 14:45] VITALS: BMI 29.9
== END 2022-10-07 15:22 | disposition home or self-care (01) ==
PROVIDERS: PCP Internal Medicine; Visit Provider Physician Assistant
DX: S93.409A Sprain of unspecified ligament of unspecified ankle, initial encounter (principal)
CPT/HCPCS: 99203

== ENCOUNTER → 2022-10-07 14:27 | Outpatient (BNVA) | payer OTHER, SELFPAY | PROVIDERS: PCP Internal Medicine; Visit Provider Physician Assistant ==

== ENCOUNTER 2022-10-27 08:28 | Emergency (ER) | payer OTHER, SELFPAY ==
--- NOTE | ~2022-10-27 | US_ITS ---
EXAMINATION: US RETROPERITONEAL COMPLETE (RENAL) CLINICAL INFORMATION: Dysuria, right COMPARISON: 10/27 ultrasound, 126 TECHNIQUE: Real-time imaging of the kidneys and bladder. FINDINGS: Horseshoe configuration again identified. The right renal component measures 11.1 x 4.7 x 4.6 cm, left measures 11.5 x 4.8 x 4.0 cm. Right intrarenal collecting system fullness/mild hydronephrosis may be slightly more pronounced than on previous study. Left renal pelvic fullness on previous study is not appreciated on today's examination. Previously demonstrated 3 mm right mid pole calculus is not appreciated on today's study. BLADDER: Well distended and normal. Bilateral ureteral jets are demonstrated. Prevoid bladder volume is 458 mL. Postvoid bladder volume is 246 mL. US/US retroperitoneal comp IMPRESSION: Redemonstration of horseshoe kidney with question slight increase in right renal pelvic fullness/mild hydronephrosis. Large post void residual.
[2022-10-27 08:43] VITALS: BP 147/90; PULSE 76; RESP 18; TEMP 36.6; O2SAT 99; BMI 31.7
--- NOTE | 2022-10-27 09:02 | PC.NURSE ---
pt a&ox3, pt verbalizing 10/10 pain in the right flank that radiates towards RLQ and towards groin. pt has hx of kidney stones and states that this feeling feels like past episodes. pt tearful d/t pain. call adrian placed within reach.
[2022-10-27 09:03] VITALS: BP 134/75; PULSE 75; RESP 18; TEMP 36.4; O2SAT 97
--- NOTE | 2022-10-27 09:19 | ED.FEMALEGU ---
HPI - Female Genitourinary General Chief complaint: Urogenital-Female Stated complaint: kidney stones Time Seen by Provider: 10/27/22 08:51 Source: patient Mode of arrival: ambulatory Limitations: no limitations History of Present Illness HPI Narrative: This is a 42-year-old female history of kidney stones, pyelonephritis, horseshoe kidney currently followed by urology Dr. Addison presenting with severe right sided flank pain, pain started just pior to arrival. Patient tells me pain started suddenly and it feels like her typical stone. Patient reports associated nausea and right sided flank pain.? Denies fevers, chills, chest pain, shortness of breath, headache, dizziness, vision changes, weakness. Related Data Previous Rx's Medication Instructions Recorded pyridoxine (vitamin B6) 100 mg 100 mg PO DAILY 90 days #90 tabs 01/15/22 tablet amlodipine 5 mg tablet 5 mg PO DAILY 90 days #90 tabs 04/15/22 off loading boot (Aircast off #1 ea 09/21/22 loading boot) diclofenac sodium 75 mg 75 mg PO BID PRN pain #60 tabs 10/07/22 tablet,delayed release ibuprofen 800 mg tablet 800 mg PO DAILY PRN pain #30 tabs 10/26/22 lidocaine 5 % topical patch 1 patch topical DAILY PRN Pain #30 10/26/22 (Lidoderm) ea lorazepam 0.5 mg tablet 0.5 mg PO TID PRN anxiety 30 days 10/26/22 #90 tabs ketorolac 10 mg tablet 10 mg PO TID PRN pain 5 days #15 10/27/22 tabs prednisone 20 mg tablet 40 mg PO DAILY 5 days #10 tabs 10/27/22 tamsulosin 0.4 mg capsule (Flomax) 0.4 mg PO DAILY 2 weeks #14 caps 10/27/22 Allergies Allergy/AdvReac Type Severity Reaction Status Date / Time celecoxib [From Celebrex] Allergy Intermediate ITCHING Verified 10/27/22 08:43 Effexor Allergy Unknown itching Verified 10/27/22 08:43 metronidazole Allergy Unknown rash Verified 10/27/22 08:43 sertraline [Zoloft] Allergy Unknown itching Verified 10/27/22 08:43 Sulfa (Sulfonamide Allergy Unknown unknown, Verified 10/27/22 08:43 Antibiotics) yeast infection sulfamethoxazole Allergy Unknown ITCHING Verified 10/27/22 08:43 [From BACTRIM] trimethoprim [From BACTRIM] Allergy Unknown ITCHING Verified 10/27/22 08:43 naproxen [From Naprosyn] Allergy Itching Verified 10/27/22 08:43 tramadol AdvReac Intermediate Nausea Verified 10/27/22 08:43 alprazolam [From XANAX] AdvReac Mild CONFUSION Verified 10/27/22 08:43 Review of Systems Review of Systems: Constitutional : No Fever, No Chills ENT/Mouth : No sore throat Eyes: No Eye Pain, No Swelling, No Redness Cardiovascular : No Chest Pain, No SOB Respiratory : No Cough, No Sputum, No Wheezing Gastrointestinal : positive Nausea, positive Vomiting, No Diarrhea, No abdominal pain Genitourinary : No Dysuria, No urinary frequency, No Hematuria, positive Flank Pain, No hesitancy Musculoskeletal : No joint pain, No Myalgias Skin : No Skin Lesions, No rash Neuro : No Weakness, No Numbness, No Headache Yes all other systems are reviewed and are negative [facility] Past Medical History Attestation statement: The following information was validated with the patient. Source: old records reviewed and nursing notes reviewed Medical History Anxiety Benign essential hypertension Gestational HTN Horseshoe kidney Lumbar degenerative disc disease Obesity (BMI 30-39.9) Pyelonephritis Renal calculi Surgical History Back pain with history of spinal surgery H/O wrist surgery History of extraction of renal calculus Family History Family History Father HIV (human immunodeficiency virus infection) Mother CVD (cardiovascular disease) Maternal Grandmother Breast cancer Diabetes Hypertension Maternal Grandfather Prostate cancer Paternal Grandmother CVD (cardiovascular disease) Paternal Grandfather Prostate cancer Sister In good health CHF (congestive heart failure) Son In good health Social History Social History Household Members: Spouse Housing: Apartment Are you a primary healthcare management to a significant other at home: No Do you presently have visiting nurse or other home services: No Alcohol intake: never Patient Tobacco Use Status: Never used Tobacco Smoked in Last 30 Days: No e-Cigarette/Vaping Use: Never Used Second Hand Smoke Exposure: No Use of substances other than those prescribed or required for medical reasons: No Advance Directives: No Patient : No service: No (HPD) Current occupational status: employed Cognitive needs: No Hearing needs: No Vision needs: No Physical Exam Vital Signs: Vital Signs: Last Vital Signs Temp 97.8 F 10/27/22 11:57 Pulse 63 10/27/22 11:57 Resp 16 10/27/22 11:57 BP 99/56 L 10/27/22 11:57 Pulse Ox 96 10/27/22 11:57 O2 Del Method Room Air 10/27/22 11:57 BMI result Body Mass Index 31.7 vss Appearance: Alert.? Oriented X3.? No acute distress.? Head:? Normocephalic, atraumatic, no step-offs or deformities Eyes: Pupils equal, round and reactive to light.? ENT: Pharynx normal.? Neck: Normal inspection.? Neck supple.? CVS: Normal heart rate and rhythm.? Pulses normal.? Respiratory: No respiratory distress.? Breath sounds normal.? Abdomen: Soft and nontender.? Skin: Skin warm and dry.? Normal skin color.? Normal skin turgor.? Extremities: No lower extremity edema.? No calf ttp.? 5/5 strength to bilateral upper and lower extremities Back:? No midline tenderness, no C-spine tenderness, full range of motion,? significant right-sided CVA tenderness.? Negative on the left. Neuro: Oriented X 3.? No motor deficit.? No sensory deficit. CN 2-12 intact Course Reevaluation(s) Reevaluation #1: CBC appears to be within normal limits. Chemistry unremarkable. UA clean no infection. Ultrasound of retroperitoneum showing redemonstration of horseshoe kidney with questions slight increase in right renal pelvic fullness/mild hydro large postvoid residual. I did discuss this case with Dr. Addison that recommends Flomax, fluids and pain control with urology follow-up. Patient had 10/10 pain now has 2/10 pain feels better Educated patient on diagnosis and treatment plan, answered all question, patient verbalizes understanding. At this time patient will be discharged home, advised to return with new or worsening symptoms. Educated on worrisome signs and symptoms and when to return. At this time I feel comfortable discharge home. Time: 12:34 Medications Administered Discontinued Medications Generic Name Dose Route Start Last Admin Trade Name Lauri PRN Reason Stop Dose Admin Hydromorphone HCl 1 mg 10/27/22 09:12 10/27/22 09:29 Hydromorphone Hcl 1 Mg/Ml Syringe IVPUSH 10/27/22 09:13 1 mg ONCE ONE Administration Protocol Sodium Chloride 1,000 mls @ 999 mls/hr 10/27/22 09:30 10/27/22 10:31 Ns IV 10/27/22 10:30 Infused .Q1H1M TONA Infusion Sodium Chloride 1,000 mls @ 999 mls/hr 10/27/22 11:15 10/27/22 11:24 Ns IV 10/27/22 12:15 999 mls/hr .Q1H1M TONA Administration Ketorolac Tromethamine 30 mg 10/27/22 11:11 10/27/22 11:31 Ketorolac Tromethamine 15 Mg/Ml Vial IVPUSH 10/27/22 11:12 30 mg ONCE ONE Administration Ondansetron HCl 4 mg 10/27/22 09:18 10/27/22 09:47 Ondansetron Hcl 4 Mg/2 Ml Vial IVPUSH 10/27/22 09:19 4 mg ONCE ONE Administration Prednisone 20 mg 10/27/22 11:11 10/27/22 11:25 Prednisone 20 Mg Tablet PO 10/27/22 11:12 Not Given ONCE ONE Tamsulosin HCl 0.4 mg 10/27/22 11:11 10/27/22 11:25 Tamsulosin Hcl 0.4 Mg Capsule PO 10/27/22 11:12 0.4 mg ONCE ONE Administration Medical Decision Making Medical Decision Making [facility] Narrative: 0915 42-year-old female history of recurrent kidney stones presents with severe right-sided flank pain, hematuria, nausea that started suddenly a few hours ago. Physical examination patient appears uncomfortable, with significant right-sided CVA tenderness.? Regular rate and rhythm, lungs clear, abdomen soft nontender nondistended.? Neuro nonfocal.? Vital signs are stable. Concerns for obstructing uropathy versus kidney stone versus musculoskeletal pain. Unlikely cauda equina, epidural abscess. Unlikely metabolic derangements or infection. Plan at this time is to obtain basic labs, urine, ultrasound of the kidney, ureter and bladder.? When I do a CT scan at this time is patient has had many CT scans in the past therefore will try to limit radiation exposure. Differential Diagnosis Differential Diagnoses: The differential diagnosis associated with the presentation includes Concerns for obstructing uropathy versus kidney stone versus musculoskeletal pain. Unlikely cauda equina, epidural abscess. Unlikely metabolic derangements or infection. Admission/Observation Consideration of admission/observation: Escalation of care including admission/observation considered no indication Consult Healthcare Provider Management of the patient was discussed with: Clinical Program Director (urology) Lab Data MDM Lab Attestation statement: I reviewed the patient's lab results. 10/27/22 09:10/27/22 09: Labs: Lab Results 10/27/22 10/27/22 10/27/22 Range/Units 09:26 09:26 09:26 WBC 7.7 (4.8-10.8) X10*3/uL RBC 4.79 (4.20-5.50) X10*6/uL Hgb 14.3 (12.0-16.0) g/dl Hct 44.2 (37.0-47.0) % MCV 92.3 (80.0-98.0) fL MCH 29.9 (27.0-33.0) pg MCHC 32.4 (31.0-35.0) g/dl RDW 12.1 (11.0-16.0) % Plt Count 276 (160-400) X10*3/uL MPV 10.7 (9.4-12.3) fL Immature Gran % (Auto) 0.4 (0.0-0.4) % Neut % (Auto) 59.8 (45-73) % Lymph % (Auto) 27.6 (20-40) % [place] % (Auto) 9.4 (2-11) % Eos % (Auto) 2.4 (0-4) % Baso % (Auto) 0.4 (0-2) % Lymph # (Auto) 2.1 (1.2-4.9) X10*3/uL [place] # (Auto) 0.7 (0.1-1.2) X10*3/uL Eos # (Auto) 0.2 (0.0-0.4) X10*3/uL Baso # (Auto) 0.0 (0.0-0.2) X10*3/uL Abs Immat Gran (auto) 0.03 (0.00-0.03) X10*3/uL Absolute Neuts (auto) 4.6 (2.0-8.3) x10*3/uL Absolute Nucleated RBC 0.000 (0.0-0.012) X10*3/uL Nucleated RBC % (auto) 0.0 (0.0-0.2) /100WBC Sodium 140 (135-145) mmol/L Potassium 4.2 (3.3-5.1) mmol/L Chloride 107 (96-108) mmol/L Carbon Dioxide 25 (22-29) mmol/L Anion Gap 12 (12-20) BUN 8 L (9-16) mg/dL Creatinine 0.72 (0.5-1.4) mg/dL Estim Creat Clear Calc 112.0 Estimated GFR > 60 Random Glucose 103 (60-115) mg/dL Calcium 8.7 (8.4-10.2) mg/dL Magnesium 2.1 (1.6-2.6) mg/dL Total Bilirubin 0.3 (0.0-1.0) mg/dL AST 23 (5-31) U/L ALT 20 (0-31) U/L Alkaline Phosphatase 62 (39-117) U/L Total Protein 7.3 (6.5-8.0) g/dL Albumin 3.8 (3.5-5.0) g/dL Urine Color Urine Appearance Urine pH (5.0-9.0) Ur Specific [place] (1.005-1.025) Urine Protein (Neg-Trace) mg/dL Urine Glucose (UA) (Negative) mg/dL Urine Ketones (Negative) mg/dL Urine Blood (Negative) Urine Nitrite (Negative) Ur Leukocyte Esterase (Negative) Urine RBC (0-2) /HPF Urine WBC (0-5) /HPF Ur Squamous Epith Cells (0-2) /HPF Urine Bacteria (None Seen) Hyaline Casts (0-2) /LPF COVID-19 (JERRELL) Negative (Negative) COVID-19 Clin Com See Note 10/27/22 Range/Units 10:13 WBC (4.8-10.8) X10*3/uL RBC (4.20-5.50) X10*6/uL Hgb (12.0-16.0) g/dl Hct (37.0-47.0) % MCV (80.0-98.0) fL MCH (27.0-33.0) pg MCHC (31.0-35.0) g/dl RDW (11.0-16.0) % Plt Count (160-400) X10*3/uL MPV (9.4-12.3) fL Immature Gran % (Auto) (0.0-0.4) % Neut % (Auto) (45-73) % Lymph % (Auto) (20-40) % [place] % (Auto) (2-11) % Eos % (Auto) (0-4) % Baso % (Auto) (0-2) % Lymph # (Auto) (1.2-4.9) X10*3/uL [place] # (Auto) (0.1-1.2) X10*3/uL Eos # (Auto) (0.0-0.4) X10*3/uL Baso # (Auto) (0.0-0.2) X10*3/uL Abs Immat Gran (auto) (0.00-0.03) X10*3/uL Absolute Neuts (auto) (2.0-8.3) x10*3/uL Absolute Nucleated RBC (0.0-0.012) X10*3/uL Nucleated RBC % (auto) (0.0-0.2) /100WBC Sodium (135-145) mmol/L Potassium (3.3-5.1) mmol/L Chloride (96-108) mmol/L Carbon Dioxide (22-29) mmol/L Anion Gap (12-20) BUN (9-16) mg/dL Creatinine (0.5-1.4) mg/dL Estim Creat Clear Calc Estimated GFR Random Glucose (60-115) mg/dL Calcium (8.4-10.2) mg/dL Magnesium (1.6-2.6) mg/dL Total Bilirubin (0.0-1.0) mg/dL AST (5-31) U/L ALT (0-31) U/L Alkaline Phosphatase (39-117) U/L Total Protein (6.5-8.0) g/dL Albumin (3.5-5.0) g/dL Urine Color Yellow Urine Appearance Clear Urine pH 7.5 (5.0-9.0) Ur Specific [place] <= 1.005 (1.005-1.025) Urine Protein Negative (Neg-Trace) mg/dL Urine Glucose (UA) Negative (Negative) mg/dL Urine Ketones Negative (Negative) mg/dL Urine Blood Negative (Negative) Urine Nitrite Negative (Negative) Ur Leukocyte Esterase Trace H (Negative) Urine RBC 0-2 (0-2) /HPF Urine WBC 0-5 (0-5) /HPF Ur Squamous Epith Cells 0-2 (0-2) /HPF Urine Bacteria None Seen (None Seen) Hyaline Casts 0-2 (0-2) /LPF COVID-19 (JERRELL) (Negative) COVID-19 Clin Com Independent Interpretation I performed an independent interpretation of an: Ultrasound (US/US retroperitoneal comp IMPRESSION: Redemonstration of horseshoe kidney with question slight increase in right renal pelvic fullness/mild hydronephrosis. Large post void residual.) Radiology Impression Discussion of test interpretation with radiology: I have reviewed the radiologist's reading. Tests considered The following testing was considered but not selected: Patient has had multiple CT scans increasing exposure to radiation, will order an ultrasound instead of a CT scan. Core Measures AMI core measures followed: Yes Measure exclusions: not indicated Critical Care Time Critical Care Time Critical Care Time: Yes Total Critical Care Time: 35 Attestation: I attest to this time spent taking care of the patient, obtaining history, physical, reviewing labs, imaging, speaking to my attending, speaking to specialist. Discharge Plan Discharge Clinical Impression: Hydronephrosis, Acute right flank pain Patient Disposition: Home, Self-Care Instructions: Flank Pain (ED), Hydronephrosis (ED) Additional Instructions: Take your medications as prescribed. If you were prescribed antibiotics today, it is important that you take your medication to their entirety, do not skip any doses, do not finish them early. Follow-up with your primary care provider this week. Return to the emergency department with new or worsening symptoms. Such as fevers, chills, chest pain, shortness of breath, nausea, vomiting, dizziness, headache, vision changes, lethargy In case of emergency call 911 Toradol has been sent to your pharmacy, you tolerated this well in the department. Please take this as prescribed do not take this with ibuprofen, or other NSAIDs, do not mix this with alcohol. Side effects of this medication including increased risk for bleeding and possible kidney injury. US/US retroperitoneal comp IMPRESSION: Redemonstration of horseshoe kidney with question slight increase in right renal pelvic fullness/mild hydronephrosis. Large post void residual. Prescriptions: New prednisone 20 mg tablet 40 mg PO DAILY 5 Days Qty: 10 0RF ketorolac 10 mg tablet 10 mg PO TID PRN (Reason: pain) 5 Days Qty: 15 0RF tamsulosin [Flomax] 0.4 mg capsule 0.4 mg PO DAILY 14 Days Qty: 14 0RF No Action amlodipine 5 mg tablet 5 mg PO DAILY 90 Days Qty: 90 1RF (DME) Aircast off loading boot Kit See Rx Instructions .Route Qty: 1 0RF Rx Instructions: As directed ibuprofen 800 mg tablet 800 mg PO DAILY PRN (Reason: pain) Qty: 30 0RF Rx Instructions: Take with food lidocaine [Lidoderm] 5 % adhesive patch,medicated 1 patch topical DAILY PRN (Reason: Pain) Qty: 30 1RF Rx Instructions: leave on most painful area for up to 12 hrs lorazepam 0.5 mg tablet 0.5 mg PO TID PRN (Reason: anxiety) 30 Days Qty: 90 0RF pyridoxine (vitamin B6) 100 mg tablet 100 mg PO DAILY 90 Days Qty: 90 3RF diclofenac sodium 75 mg tablet,delayed release (DR/EC) 75 mg PO BID PRN (Reason: pain) Qty: 60 0RF Referrals: [facility] [Provider Group] - 2 days Elier Olmstead MD [Primary Care Provider] - 2 days Stand Alone Forms: Work/School Release Interventions: ED Discharge Assessment Last Done: 10/27/22 12:50 Discharge Date/Time: 10/27/22 12:51
[2022-10-27] MEDS: HYDROmorphone HCl 1 MG/ML SYRINGE IVPUSH (09:29)
[2022-10-27 09:30] LABS: MANUAL DIFF FLAG NO
[2022-10-27] MEDS: 0.9 % Sodium Chloride 1,000 ML 999 ML IV ×2 (09:30→11:24)
[2022-10-27 09:38] LABS: Basophils Percent Auto 0.4 % (0-2); Eosinophils Absolute Auto 0.2 X10*3/uL (0.0-0.4); Eosinophils Percent Auto 2.4 % (0-4); Hematocrit 44.2 % (37.0-47.0); Hemoglobin 14.3 g/dl (12.0-16.0); Imm Gran Abs Auto 0.03 X10*3/uL (0.00-0.03); Imm Gran Pct Auto 0.4 % (0.0-0.4); Lymphocytes Absolute Auto 2.1 X10*3/uL (1.2-4.9); Lymphocytes Percent Auto 27.6 % (20-40); Mean Corpuscular HGB Conc 32.4 g/dl (31.0-35.0); Mean Corpuscular Hemoglobin 29.9 pg (27.0-33.0); Mean Corpuscular Volume 92.3 fL (80.0-98.0); Mean Platelet Volume 10.7 fL (9.4-12.3); Monocytes Absolute Auto 0.7 X10*3/uL (0.1-1.2); Monocytes Percent Auto 9.4 % (2-11); Neutrophils Absolute Auto 4.6 x10*3/uL (2.0-8.3); Neutrophils Percent Auto 59.8 % (45-73); Platelet Count 276 X10*3/uL (160-400); Red Blood Count 4.79 X10*6/uL (4.20-5.50); Red Cell Distribution Width 12.1 % (11.0-16.0); White Blood Count 7.7 X10*3/uL (4.8-10.8)
[2022-10-27 09:46] LABS: Alanine Aminotransferase 20 U/L (0-31); Albumin Level 3.8 g/dL (3.5-5.0); Alkaline Phosphatase 62 U/L (39-117); Anion Gap 12 (12-20); Aspartate Amino Transferase 23 U/L (5-31); Bilirubin Total 0.3 mg/dL (0.0-1.0); Blood Urea Nitrogen 8 mg/dL (9-16); Calcium 8.7 mg/dL (8.4-10.2); Carbon Dioxide 25 mmol/L (22-29); Chloride 107 mmol/L (96-108); Estimated Glomerular Filt Rate > 60; Glucose Random 103 mg/dL (60-115); Magnesium 2.1 mg/dL (1.6-2.6); Potassium 4.2 mmol/L (3.3-5.1); Sodium 140 mmol/L (135-145); Total Protein 7.3 g/dL (6.5-8.0)
[2022-10-27] MEDS: ondansetron HCL 4 MG/2 ML VIAL IVPUSH (09:47)
--- NOTE | 2022-10-27 09:50 | PC.NURSE ---
medication administered per provider order.
[2022-10-27 09:57] LABS: IDNOW Serial# 08D9AD1C
[2022-10-27 09:58] LABS: COVID-19 Test Negative (Negative)
--- NOTE | 2022-10-27 10:11 | PC.NURSE ---
ultrasound bedside. pt verbalizing that pain decreased to a 3/10 post medication administration. pt's and daughter also bedside. call adrian placed within reach.
--- NOTE | 2022-10-27 10:13 | PC.NURSE ---
urine obtained and sent to lab.
[2022-10-27 10:21] LABS: Appearance Urine Clear; Color Urine Yellow; Glucose Urine UA Negative (Negative); Leukocyte Esterase Urine Trace (Negative); Nitrite Urine Negative (Negative); PH 7.5 (5.0-9.0); Specific Gravity - Urine <= 1.005 (1.005-1.025); UMIC TRIGGER UACC YES; Urine Blood Negative (Negative); Urine Ketones Negative (Negative); Urine Protein Negative (Neg-Trace)
[2022-10-27 10:24] LABS: Bacteria Urine None Seen (None Seen); Hyaline Casts Urine 0-2 /LPF (0-2); RBC Urine 0-2 /HPF (0-2); Squamous Epithelial Cell Urine 0-2 /HPF (0-2); WBC Urine 0-5 /HPF (0-5)
[2022-10-27] MEDS: Tamsulosin HCL 0.4 MG CAPSULE PO (11:25)
[2022-10-27] MEDS: Ketorolac Tromethamine 15 MG/ML VIAL 30 MG IVPUSH (11:31)
--- NOTE | 2022-10-27 11:38 | PC.NURSE ---
medication administered per provider order. pt refused prednisone - documented in MAY. call adrian placed within reach.
[2022-10-27 11:57] VITALS: BP 99/56; PULSE 63; RESP 16; TEMP 36.6; O2SAT 96
--- NOTE | 2022-10-27 12:02 | PC.NURSE ---
pt a&ox3, vss and up to date, pt verbalizing 1/10 pain post medication administration.
== END 2022-10-27 12:51 | disposition home or self-care (01) ==
PROVIDERS: Physician Assistant; Emergency Provider Emergency Medicine; PCP Internal Medicine
DX: N13.30 Unspecified hydronephrosis (principal); R10.2 Pelvic and perineal pain; R10.9 Unspecified abdominal pain; Z79.899 Other long term (current) drug therapy; Z20.822 Contact with and (suspected) exposure to COVID-19; Z20.828 Contact with and (suspected) exposure to other viral communicable diseases
CPT/HCPCS: 76770; 80053; 81001; 83735; 85025; 87635; 96361; 96374; 96375; 99284; J1170; J1885; J2405

== ENCOUNTER 2022-11-11 10:46 | Outpatient (AMB) | payer OTHER, SELFPAY ==
[2022-11-11 10:47] VITALS: BP 138/82; PULSE 74; O2SAT 98; BMI 30.2
--- NOTE | 2022-11-11 10:47 | A.OFFPC_ITS ---
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 Accompanied by: Self / Same As Patient Allergies celecoxib [From Celebrex] Allergy (Intermediate, Verified 11/11/22 22:07) ITCHING Effexor Allergy (Unknown, Verified 11/11/22 22:07) itching metronidazole Allergy (Unknown, Verified 11/11/22 22:07) rash sertraline [Zoloft] Allergy (Unknown, Verified 11/11/22 22:07) itching Sulfa (Sulfonamide Antibiotics) Allergy (Unknown, Verified 11/11/22 22:07) unknown, yeast infection sulfamethoxazole [From BACTRIM] Allergy (Unknown, Verified 11/11/22 22:07) ITCHING trimethoprim [From BACTRIM] Allergy (Unknown, Verified 11/11/22 22:07) ITCHING naproxen [From Naprosyn] Allergy (Verified 11/11/22 22:07) Itching tramadol Adverse Reaction (Intermediate, Verified 11/11/22 22:07) Nausea alprazolam [From XANAX] Adverse Reaction (Mild, Verified 11/11/22 22:07) CONFUSION Medication List - Last Reconciled 11/11/22 by Elier Olmstead MD amlodipine 5 mg PO DAILY 90 days diclofenac sodium 75 mg PO BID PRN ibuprofen 800 mg PO DAILY PRN ketorolac 10 mg PO TID PRN 5 days lidocaine 5% (Lidoderm) 1 patch topical DAILY PRN lorazepam 0.5 mg PO TID PRN 30 days off loading boot (Aircast off loading boot) As directed prednisone 40 mg (2 x 20 mg) PO DAILY 5 days pyridoxine (vitamin B6) 100 mg PO DAILY 90 days tamsulosin (Flomax) 0.4 mg PO DAILY 2 weeks Tobacco use date assessed: 11/11/22 Dental Screening Dental Screen Date: 11/11/22 Did you have a dental visit in the last 12 months?: No Did you have a dental problem in the last 6 months where you did not have access to dental care?: No Was dental information given to patient?: Patient has dentist HPI Annual PE/ Pap Smear HPI Details Patient comes in today for her annual physical examination and pap smear States that she currently feels okay but continues to experience increased pain and swelling over her left ankle, which has been bothering her for almost 2 months now since she sprained/twisted it back on 09/20/22 Is following up with orthopedics for this and has a follow up appt with them next week States that she was advised that she may have for an or ruptured her tendon and will likely require an MRI of the ankle to be done She denies any headaches or dizziness Denies any chest pains, no shortness of breath No nausea /vomiting, no abdominal pain No change in bowel habits noted Denies any acute urinary symptoms She had some labs done when she presented to the ER a couple of weeks ago for right flank pain She is scheduled for a repeat annual mammogram in March 2023 REPLACED BY [facility] Medical History HPV (human papilloma virus) infection Renal calculi Pyelonephritis Lumbar degenerative disc disease Horseshoe kidney Anxiety Obesity (BMI 30-39.9) Benign essential hypertension Gestational HTN Surgical History History of extraction of renal calculus Back pain with history of spinal surgery H/O wrist surgery Family History Father HIV (human immunodeficiency virus infection) Mother CVD (cardiovascular disease) Maternal Grandmother Breast cancer Diabetes Hypertension Maternal Grandfather Prostate cancer Paternal Grandmother CVD (cardiovascular disease) Paternal Grandfather Prostate cancer Sister In good health CHF (congestive heart failure) Son In good health Social History Household Members: Spouse Housing: Apartment Are you a primary healthcare network pricing consultant to a significant other at home: No Do you presently have visiting nurse or other home services: No Alcohol intake: never Patient Tobacco Use Status: Never used Tobacco e-Cigarette/Vaping Use: Never Used Second Hand Smoke Exposure: No service: No (HPD) Current occupational status: employed Cognitive needs: No Hearing needs: No Vision needs: No Questionnaire PHQ-9 Over the last 2 weeks, how often have you been bothered by any of the following problems? 1. Little interest or pleasure in doing things: not at all 2. Feeling down, depressed, or hopeless: not at all 3. Trouble falling or staying asleep, or sleeping too much: not at all 4. Feeling tired or having little energy: not at all 5. Poor appetite or overeating: not at all 6. Feeling bad about yourself - or that you are a failure or have let yourself or your family down: not at all 7. Trouble concentrating on things, such as reading the newspaper or watching television: not at all 8. Moving or speaking so slowly that other people could have noticed. Or the opposite - being so fidgety or restless that you have been moving around a lot more than usual: not at all 9. Thoughts that you would be better off or of hurting yourself in some way: not at all Total score: 0 Depression Screening Interpretation: Negative 98692 - PHQ-9 Billing: Yes Source: Developed by Drs. Ole Ovalle, Jazzy Andrade, Sergio Lucio and colleagues, with an educational alex from [employer]. Thrive Questionnaire Date Thrive assessed: 11/11/22 I am a: Patient What is your living situation today?: I have a steady place to live Within the past 12 months, did the food you bought not last and you didn't have the money to get more?: Never true Within the past 12 months, did you worry whether your food would run out before you got money to buy more?: Never true Do you have trouble paying for medicines?: No Do you have trouble getting transportation to medical appointments?: No Do you have trouble paying your heating and electricity bill?: No Do you have trouble taking care of your child, family member or friend?: No Do you have trouble with day-to-day activities such as bathing, preparing meals, shopping, managing finances, etc.?: No Are you currently unemployed and looking for a job?: No Are you interested in more education?: No Please select the resources that you would like help with: None Currently or been in a relationship where the following occur: no concerns reported AUDIT C Alcohol Use Questionnaire (AUDIT-C) 1. How often do you have a drink containing alcohol?: Monthly or less 2. How many drinks containing alcohol do you have on a typical day when you are drinking?: 1 or 2 3. How often do you have six or more drinks on one occasion?: Never Total Score: 1 Score Reviewed/Action Taken: Yes EMMY-7 AMB Questionnaire EMMY-7 Date EMMY - 7 assessed: 11/11/22 Feeling nervous, anxious, or on edge: 0 = Not at all Not being able to stop or control worryin = Not at all Worrying too much about different things: 0 = Not at all Trouble relaxin = Not at all Being so restless that it is hard to sit still: 0 = Not at all Becoming easily annoyed or irritable: 0 = Not at all Feeling afraid as if something awful might happen: 0 = Not at all Total EMMY-7 score (0-4 normal; 5-9 mild; 10-14 moderate; 15-21 severe): 0 Source: Developed by Drs. Ole Ovalle, Jazzy Andrade, Sergio Lucio and colleagues, with an educational alex from [employer]. Review of Systems Const Denies chills, Denies fatigue, Denies fever(s), Denies headache(s) and Denies malaise Eyes Denies blurry vision, Denies change in vision, Denies irritation and Denies itchy eyes ENT Denies dysphagia, Denies dizziness, Denies otalgia, Denies headache(s), Denies nasal congestion, Denies neck pain, Denies odynophagia, Denies sinus pain and Denies sore throat Card Denies chest pain, Denies rapid heart rate, Denies irregular heart rhythm, Denies palpitations and Denies dyspnea Resp Denies chest congestion, Denies cough, Denies dyspnea and Denies wheezing GI Denies abdominal pain, Denies bloating, Denies constipation, Denies dysphagia, Denies heartburn, Denies diarrhea, Denies nausea, Denies odynophagia and Denies vomiting Denies hematuria, Denies urinary frequency, Denies dysuria, Denies urinary incontinence and Denies urinary urgency Musc Denies back pain, Reports arthralgias (left ankle), Reports joint swelling (on and off in the left ankle), Denies muscle weakness and Denies neck pain Skin/Breast Denies breast pain, Denies breast mass, Denies change in pigmentation, Denies lesions, Denies rash and Denies unusual bruising Neuro Denies dizziness, Denies headache(s) and Denies paresthesias Psych Denies anxiety and Denies depression Endo Denies fatigue and Denies palpitations Andres/Lymph Denies easy bruising Aller/Immun Denies itchy eyes and Denies wheezing Physical exam (Primary Care) Vital Signs: Last Vital Signs Pulse 74 11/11/22 10:47 BP 138/82 11/11/22 10:47 Pulse Ox 98 11/11/22 10:47 Oxygen Delivery Method Room Air 11/11/22 10:47 BMI result Body Mass Index 30.2 Tobacco/Smoking Status: Tobacco use Status Tobacco use date assessed 11/11/22 11/11/22 10:51 Patient Tobacco Use Status Never used Tobacco 11/11/22 10:51 e-Cigarette/Vaping Use Never Used 11/11/22 10:51 PHQ-9: PHQ-9 Score PHQ-9: Total score 0 11/11/22 22:27 Depression Screening Interpretation: Negative Thrive Assessment: Date of Thrive Assessment Date Thrive assessed 11/11/22 11/11/22 10:51 Currently or been in a relationship where the following occur: no concerns reported Const General: no acute distress, alert and awake Orientation/consciousness: patient oriented x3 HENMT Head: Yes normocephalic and Yes atraumatic Ears: external ears normal, TM's normal bilaterally and EAC's normal General nose exam: No nasal discharge present Face and sinus: Yes normal facial exam and Yes sinuses nontender Teeth and gingiva: dentition normal Throat: Yes posterior oropharynx normal and Yes tonsils normal (no TP congestion) Eyes Eyelids: Yes eyelids normal Conjunctivae: conjunctivae normal Pupils: Equal, round and reactive pupils present EOM: EOMs intact bilaterally Neck Neck: Yes no lymphadenopathy and Yes supple Thyroid: Thyroid normal Resp Auscultation: clear to auscultation bilaterally, no rales and no wheezes Cardio Rate: regular rate Rhythm: regular rhythm Heart sounds: no murmurs GI Palpation (GI): Soft to palpation, nontender and No hepatosplenomegaly present Auscultation: normal bowel sounds General: Yes no CVA tenderness External Female Exam: normal external appearance Speculum Exam - Vagina: normal appearance of the vagina Speculum Exam - Cervix: normal appearance of the cervix Bimanual exam- vagina & uterus: normal bimanual exam Bimanual Exam- Adnexa, other: normal adnexae Back/Spine/Pelvis Back: no CVA tenderness Thoracic/Lumbar Spine: thoracic and lumbar spine normal to inspection Skin Lesions: no lesions Rashes: no rashes Neuro General: patient oriented x3, moves all extremities, no focal motor deficits and CN's II-XI intact bilaterally Cranial nerves: Yes Equal, round and reactive pupils present Cognition (Neuro): normal cognition Gait exam (Neuro): Normal gait present Extrem Other: left ankle/lower leg is still in an aircast General: Yes no clubbing, cyanosis or edema Left lower extremity: ankle Details: tenderness and swelling Assessment and Plan Assessment & Plan (1) Annual physical exam: Code(s): Z00.00 - Encounter for general adult medical examination without abnormal findings Plan: Results of her recent labs reviewed and discussed with patient; she also had her cholesterol levels checked back in March 2022 and they were within normal limits She is reminded to get her mammogram done in March 2023 Advised that she is not yet due to start colonoscopy screening until next year when she turns 43 (2) Cervical cancer screening: Code(s): Z12.4 - Encounter for screening for malignant neoplasm of cervix Plan: Pap smear 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 normal (3) Grade 3 ankle sprain: Comment: Left ankle Code(s): S93.409A - Sprain of unspecified ligament of unspecified ankle, initial encounter Plan: Patient's left ankle is currently still in an aircast and she continues to experience recurrent pain and swelling in her ankle States that she will most likely require an MRI for further evaluation Follow-up with orthopedics as scheduled (4) Benign essential hypertension: Code(s): I10 - Essential (primary) hypertension Plan: Reinforced low sodium diet - goal is systolic BP of 120 mm or less Continue Amlodipine 5 mg QD (5) Lumbar degenerative disc disease: Code(s): M51.36 - Other intervertebral disc degeneration, lumbar region Plan: Reinforced activity and weight-lifting restrictions Continue Cyclobenzaprine 5 mg Q HS PRN Also takes Ibuprofen or Acetaminophen PRN (6) Vitamin D deficiency: Code(s): E55.9 - Vitamin D deficiency, unspecified Plan: Continue Vitamin D3 2000 units QD (7) Horseshoe kidney: Code(s): Q63.1 - Lobulated, fused and horseshoe kidney Plan: Patient is reminded of the potential concerns with horseshoe kidneys and the importance of regular follow up appointments with urology for monitoring and surveillance (8) Recurrent kidney stones: Comment: Calcium oxalate and calcium phosphate Code(s): N20.0 - Calculus of kidney Plan: She is encouraged to continue to increase her oral fluid intake regularly Follow up with urology as scheduled (9) Anxiety: Code(s): F41.9 - Anxiety disorder, unspecified Plan: Continue Lorazepam 0.5 mg TID PRN (10) Obesity (BMI 30-39.9): Code(s): E66.9 - Obesity, unspecified Plan: Reinforced diet/exercise as tolerated/lose weight Plan Follow up in 4 months Orders: Orders Pap Smear 11/11/22 Z12.4 - Encounter for screening for malignant neoplasm of cervix Coding Level of Care Code Est Pt Prev Care 40-64y([id number]) Diagnoses Annual physical exam Z00.00 Cervical cancer screening Z12.4 Grade 3 ankle sprain S93.409A Benign essential hypertension I10 Lumbar degenerative disc disease M51.36 Vitamin D deficiency E55.9 Horseshoe kidney Q63.1 Recurrent kidney stones N20.0 Anxiety F41.9 Obesity (BMI 30-39.9) E66.9
== END 2022-11-11 12:18 | disposition home or self-care (01) ==
PROVIDERS: PCP Internal Medicine; Visit Provider Internal Medicine
DX: Z00.00 Encounter for general adult medical examination without abnormal findings (principal); I10 Essential (primary) hypertension; E55.9 Vitamin D deficiency, unspecified; F41.9 Anxiety disorder, unspecified; S93.409A Sprain of unspecified ligament of unspecified ankle, initial encounter; M51.36 Other intervertebral disc degeneration, lumbar region; Q63.1 Lobulated, fused and horseshoe kidney; N20.0 Calculus of kidney; E66.9 Obesity, unspecified
CPT/HCPCS: 99396

== ENCOUNTER 2022-11-11 16:49 | Outpatient (REF) | payer OTHER, SELFPAY ==
[2022-11-15 20:53] LABS: HPV mRNA E6/E7 rflx Not Detected (Not Detected)
== END 2022-11-11 16:50 | disposition home or self-care (01) ==
LOC: HO.LNP 16:49
PROVIDERS: Visit Provider Internal Medicine
DX: Z01.419 Encounter for gynecological examination (general) (routine) without abnormal findings (principal)
CPT/HCPCS: 87624; 88142

== ENCOUNTER 2022-11-16 08:24 | Outpatient (AMB) | payer OTHER, SELFPAY ==
[2022-11-16 08:29] VITALS: BMI 30.2
--- NOTE | 2022-11-16 08:29 | MHC.OFFVIS ---
Intake Vital Signs 11/16/22 08:29 Height 5 ft 6 in Weight 187 lb BMI 30.2 Intake Visit Reasons: ov- Left ankle pain Intake Note: Shirlene is a 42 year old female who presents today for a follow up for her left ankle pain, DOI 09/20/22. Patient reports still having sharp pain. She states that when she was at PT and she told by a doctor that she might have a tore tendon. Pain is on the lateral aspect of the ankle and it moves to the middle of the foot per patient. Allergies celecoxib [From Celebrex] Allergy (Intermediate, Verified 11/16/22 08:33) ITCHING Effexor Allergy (Unknown, Verified 11/16/22 08:33) itching metronidazole Allergy (Unknown, Verified 11/16/22 08:33) rash sertraline [Zoloft] Allergy (Unknown, Verified 11/16/22 08:33) itching Sulfa (Sulfonamide Antibiotics) Allergy (Unknown, Verified 11/16/22 08:33) unknown, yeast infection sulfamethoxazole [From BACTRIM] Allergy (Unknown, Verified 11/16/22 08:33) ITCHING trimethoprim [From BACTRIM] Allergy (Unknown, Verified 11/16/22 08:33) ITCHING naproxen [From Naprosyn] Allergy (Verified 11/16/22 08:33) Itching tramadol Adverse Reaction (Intermediate, Verified 11/16/22 08:33) Nausea alprazolam [From XANAX] Adverse Reaction (Mild, Verified 11/16/22 08:33) CONFUSION HPI ov- Left ankle pain HPI Details 42-year-old female who presents in the office today for a follow up of left ankle pain. The patient describes having a sharp pain in the left ankle. She reports the pain on the lateral aspect of the left ankle that radiates to the middle of the foot. She claims while in Physical Therapy she was told by a doctor that she might have a torn tendon. Patient works at the Walk-[employer]. [facility] Medical History HPV (human papilloma virus) infection Renal calculi Pyelonephritis Lumbar degenerative disc disease Horseshoe kidney Anxiety Obesity (BMI 30-39.9) Benign essential hypertension Gestational HTN Surgical History History of extraction of renal calculus Back pain with history of spinal surgery H/O wrist surgery Family History Father HIV (human immunodeficiency virus infection) Mother CVD (cardiovascular disease) Maternal Grandmother Breast cancer Diabetes Hypertension Maternal Grandfather Prostate cancer Paternal Grandmother CVD (cardiovascular disease) Paternal Grandfather Prostate cancer Sister In good health CHF (congestive heart failure) Son In good health Social History Household Members: Spouse Housing: Apartment Are you a primary school childcare attendant to a significant other at home: No Do you presently have visiting nurse or other home services: No Alcohol intake: never Patient Tobacco Use Status: Never used Tobacco e-Cigarette/Vaping Use: Never Used Second Hand Smoke Exposure: No service: No (HPD) Current occupational status: employed Cognitive needs: No Hearing needs: No Vision needs: No Review of Systems Const All systems reviewed & are unremarkable except as noted in HPI and below Physical Exam Vital Signs: BMI result Body Mass Index 30.2 Const General: cooperative, healthy appearing and no acute distress Resp Effort & Inspection: normal respiratory effort and able to speak in complete sentences Cardio Rate: regular rate Peripheral pulses: Peripheral pulses 2+ throughout GI Palpation (GI): Soft to palpation Skin Lesions: no lesions Rashes: no rashes Extrem Other: Left ankle: Mild circumferential edema. Extreme tenderness to palpation over the tibia and peroneal tendons. Able to perform minimal dorsiflexion, plantarflexion, pronation, and supination with pain. NVI. Assessment & Plan Assessment & Plan (1) Grade 3 ankle sprain: Comment: Left ankle Code(s): S93.409A - Sprain of unspecified ligament of unspecified ankle, initial encounter Plan Ms. Mcdermott is a 42-year-old female who presents in the office today for a follow up of left ankle pain. The patient describes having a sharp pain in the left ankle. She reports the pain on the lateral aspect of the left ankle that radiates to the middle of the foot. She claims while in Physical Therapy she was told by a doctor that she might have a torn tendon. Patient works at the [employer]. The patient has her first physical therapy appointment tomorrow. She will remain in the boot and work with physical therapy to wean out of it. She will complete 4 weeks and will call the office with an update. Should she not have made progress then we will order an MRI for further evaluation of the left ankle. The patient was prescribed a heel lift for the right shoe that was [facility] to [facility]. Follow up will be in 4 weeks via a telehealth appointment, or sooner if needed. Medications: New [1 03/10 in heel lift] As directed 1 ea 0RF placed in opposite shoe while wearing boot Patient Instructions: Scribed for Katelyn Go PA-C by [employer] medical insurance coding specialist, on 11/16/2022 at 8:29 am, EST. Coding Level of Care Code Est Pt Level 3 (28044) Diagnoses Grade 3 ankle sprain S93.409A
== END 2022-11-16 08:56 | disposition home or self-care (01) ==
PROVIDERS: PCP Internal Medicine; Visit Provider Physician Assistant
DX: S93.409A Sprain of unspecified ligament of unspecified ankle, initial encounter (principal)
CPT/HCPCS: 99213

== ENCOUNTER → 2022-11-16 08:24 | Outpatient (BNVA) | payer OTHER, SELFPAY | PROVIDERS: PCP Internal Medicine; Visit Provider Physician Assistant ==

== ENCOUNTER 2022-11-25 08:46 | Outpatient (AMB) | payer OTHER, SELFPAY ==
[2022-11-25 08:50] VITALS: BP 116/80; PULSE 78; O2SAT 98; BMI 30.2
--- NOTE | 2022-11-25 08:50 | MHC.PC.OV ---
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 Accompanied by: Self / Same As Patient Allergies celecoxib [From Celebrex] Allergy (Intermediate, Verified 11/25/22 09:12) ITCHING Effexor Allergy (Unknown, Verified 11/25/22 09:12) itching metronidazole Allergy (Unknown, Verified 11/25/22 09:12) rash sertraline [Zoloft] Allergy (Unknown, Verified 11/25/22 09:12) itching Sulfa (Sulfonamide Antibiotics) Allergy (Unknown, Verified 11/25/22 09:12) unknown, yeast infection sulfamethoxazole [From BACTRIM] Allergy (Unknown, Verified 11/25/22 09:12) ITCHING trimethoprim [From BACTRIM] Allergy (Unknown, Verified 11/25/22 09:12) ITCHING naproxen [From Naprosyn] Allergy (Verified 11/25/22 09:12) Itching tramadol Adverse Reaction (Intermediate, Verified 11/25/22 09:12) Nausea alprazolam [From XANAX] Adverse Reaction (Mild, Verified 11/25/22 09:12) CONFUSION Medication List - Last Reconciled 11/25/22 by Elier Olmstead MD [1 03/10 in heel lift As directed] amlodipine 5 mg PO DAILY 90 days diclofenac sodium 75 mg PO BID PRN ibuprofen 800 mg PO DAILY PRN ketorolac 10 mg PO TID PRN 5 days lidocaine 5% (Lidoderm) 1 patch topical DAILY PRN lorazepam 0.5 mg PO TID PRN 30 days off loading boot (Aircast off loading boot) As directed prednisone 40 mg (2 x 20 mg) PO DAILY 5 days pyridoxine (vitamin B6) 100 mg PO DAILY 90 days semaglutide (weight loss) (Wegovy) 0.25 mg (0.5 mL) subcut QWEEK tamsulosin (Flomax) 0.4 mg PO DAILY 2 weeks Tobacco use date assessed: 11/25/22 Dental Screening Dental Screen Date: 11/25/22 Did you have a dental visit in the last 12 months?: Yes Did you have a dental problem in the last 6 months where you did not have access to dental care?: No Was dental information given to patient?: Patient has dentist HPI Right neck and levator scapulae pain HPI Details Patient comes in today complaining of right-sided neck pain that started about 2 months ago after using a massage chair at the hospital Thinks that the settings she used then may have been too strong for her and ended up causing a muscle strain somehow over her right trapezius muscle States that she has tried managing her injury on her own for a while by doing some neck exercises that she was previously taught for neck strain and injuries and has been taking some Ibuprofen PRN Feels that her injury is not any better now after 2 months of conservative Tx She is presently still unable to turn her head completely to the right side due to pain and comes in today for further recommendations States that she is currently still going for treatments and therapy for her left ankle No other acute complaints or symptoms are noted [facility] Medical History HPV (human papilloma virus) infection Renal calculi Pyelonephritis Lumbar degenerative disc disease Horseshoe kidney Anxiety Obesity (BMI 30-39.9) Benign essential hypertension Gestational HTN Surgical History History of extraction of renal calculus Back pain with history of spinal surgery H/O wrist surgery Family History Father HIV (human immunodeficiency virus infection) Mother CVD (cardiovascular disease) Maternal Grandmother Breast cancer Diabetes Hypertension Maternal Grandfather Prostate cancer Paternal Grandmother CVD (cardiovascular disease) Paternal Grandfather Prostate cancer Sister In good health CHF (congestive heart failure) Son In good health Social History Household Members: Spouse Housing: Apartment Are you a primary medical care evaluation specialist to a significant other at home: No Do you presently have visiting nurse or other home services: No Alcohol intake: never Patient Tobacco Use Status: Never used Tobacco e-Cigarette/Vaping Use: Never Used Second Hand Smoke Exposure: No service: No (HPD) Current occupational status: employed Cognitive needs: No Hearing needs: No Vision needs: No Questionnaire PHQ-9 Over the last 2 weeks, how often have you been bothered by any of the following problems? 1. Little interest or pleasure in doing things: not at all 2. Feeling down, depressed, or hopeless: not at all 3. Trouble falling or staying asleep, or sleeping too much: not at all 4. Feeling tired or having little energy: not at all 5. Poor appetite or overeating: not at all 6. Feeling bad about yourself - or that you are a failure or have let yourself or your family down: not at all 7. Trouble concentrating on things, such as reading the newspaper or watching television: not at all 8. Moving or speaking so slowly that other people could have noticed. Or the opposite - being so fidgety or restless that you have been moving around a lot more than usual: not at all 9. Thoughts that you would be better off or of hurting yourself in some way: not at all Total score: 0 Depression Screening Interpretation: Negative 96151 - PHQ-9 Billing: Yes Source: Developed by Drs. Ole Ovalle, Jazzy Andrade, Sergio Lucio and colleagues, with an educational alex from [employer]. Thrive Questionnaire Date Thrive assessed: 11/25/22 I am a: Patient What is your living situation today?: I have a steady place to live Within the past 12 months, did the food you bought not last and you didn't have the money to get more?: Never true Within the past 12 months, did you worry whether your food would run out before you got money to buy more?: Never true Do you have trouble paying for medicines?: No Do you have trouble getting transportation to medical appointments?: No Do you have trouble paying your heating and electricity bill?: No Do you have trouble taking care of your child, family member or friend?: No Do you have trouble with day-to-day activities such as bathing, preparing meals, shopping, managing finances, etc.?: No Are you currently unemployed and looking for a job?: No Are you interested in more education?: No Please select the resources that you would like help with: None Currently or been in a relationship where the following occur: no concerns reported AUDIT C Alcohol Use Questionnaire (AUDIT-C) 1. How often do you have a drink containing alcohol?: Monthly or less 2. How many drinks containing alcohol do you have on a typical day when you are drinking?: 1 or 2 3. How often do you have six or more drinks on one occasion?: Never Total Score: 1 Score Reviewed/Action Taken: Yes EMMY-7 AMB Questionnaire EMMY-7 Date EMMY - 7 assessed: 11/25/22 Feeling nervous, anxious, or on edge: 0 = Not at all Not being able to stop or control worryin = Not at all Worrying too much about different things: 0 = Not at all Trouble relaxin = Not at all Being so restless that it is hard to sit still: 0 = Not at all Becoming easily annoyed or irritable: 0 = Not at all Feeling afraid as if something awful might happen: 0 = Not at all Total EMMY-7 score (0-4 normal; 5-9 mild; 10-14 moderate; 15-21 severe): 0 Source: Developed by Drs. Ole Ovalle, Jazzy Andrade, Sergio Lucio and colleagues, with an educational alex from [employer]. Review of Systems Const Denies fatigue, Denies fever(s) and Denies headache(s) ENT Denies dysphagia, Denies dizziness, Denies headache(s), Reports neck pain (mostly over the right side, in between the neck and the right shoulder area), Denies odynophagia and Denies sore throat Card Denies chest pain, Denies rapid heart rate, Denies irregular heart rhythm, Denies palpitations and Denies dyspnea Resp Denies cough, Denies dyspnea and Denies wheezing GI Denies abdominal pain, Denies constipation, Denies dysphagia, Denies heartburn, Denies diarrhea, Denies nausea, Denies odynophagia and Denies vomiting Denies hematuria, Denies urinary frequency and Denies dysuria Musc Denies back pain, Reports arthralgias (left ankle), Reports joint swelling (on and off in the left ankle) and Reports neck pain (mostly over the right side, in between the neck and the right shoulder area) Skin/Breast Denies rash Neuro Denies dizziness, Denies headache(s) and Denies paresthesias Psych Denies anxiety and Denies depression Endo Denies fatigue and Denies palpitations Andres/Lymph Denies easy bruising Aller/Immun Denies wheezing Physical exam (Primary Care) Vital Signs: Last Vital Signs Pulse 78 11/25/22 08:50 BP 116/80 11/25/22 08:50 Pulse Ox 98 11/25/22 08:50 Oxygen Delivery Method Room Air 11/25/22 08:50 BMI result Body Mass Index 30.2 Tobacco/Smoking Status: Tobacco use Status Tobacco use date assessed 11/25/22 11/25/22 08:53 Patient Tobacco Use Status Never used Tobacco 11/25/22 08:53 e-Cigarette/Vaping Use Never Used 11/25/22 08:53 PHQ-9: PHQ-9 Score PHQ-9: Total score 0 11/25/22 08:53 Depression Screening Interpretation: Negative Thrive Assessment: Date of Thrive Assessment Date Thrive assessed 11/25/22 11/25/22 08:53 Currently or been in a relationship where the following occur: no concerns reported Const General: no acute distress and alert HENMT Throat: Yes posterior oropharynx normal and Yes tonsils normal (no TP congestion) Neck Other: (+) tenderness on palpation over the right cervical portion of the right trapezius muscle Neck: Yes no lymphadenopathy Thyroid: Thyroid normal Resp Auscultation: clear to auscultation bilaterally, no rales and no wheezes Cardio Rate: regular rate Rhythm: regular rhythm Heart sounds: no murmurs GI Palpation (GI): Soft to palpation and nontender Auscultation: normal bowel sounds Skin Rashes: no rashes Extrem Other: left ankle/lower leg is still in an aircast General: Yes no clubbing, cyanosis or edema Left lower extremity: ankle Details: tenderness and swelling Assessment and Plan Assessment & Plan (1) Strain of cervical portion of right trapezius muscle: Code(s): S16.1XXA - Strain of muscle, fascia and tendon at neck level, initial encounter Plan: Advised that her injury appears to be mostly over the cervical portion of the right trapezius muscle, especially at the area just to the right side of her cervical spine Will start her on Tizanidine 4 mg TID PRN (cautioned that the Rx may cause drowsiness) and advised to continue on Ibuprofen PRN Will refer her as well to physical therapy for further evaluation and management Plan Follow up PRN Keep appt in March 2023 Orders: Orders PT Evaluation and Treatment Today S16.1XXA - Strain of muscle, fascia and tendon at neck level, initial encounter Medications: New tizanidine 4 mg PO Q8H 30 days PRN 90 tabs 0RF muscle spasms Coding Level of Care Code Est Pt Level 3 (30258) Diagnoses Strain of cervical portion of right trapezius muscle S16.1XXA
== END 2022-11-25 09:30 | disposition home or self-care (01) ==
PROVIDERS: PCP Internal Medicine; Visit Provider Internal Medicine
DX: S16.1XXA Strain of muscle, fascia and tendon at neck level, initial encounter (principal)
CPT/HCPCS: 99213

== ENCOUNTER 2022-12-03 11:13 | Outpatient (AMB) | payer OTHER, SELFPAY ==
--- NOTE | 2022-12-03 11:13 | MHC.PC.OV ---
Intake Visit Reasons: sore throat, fever, body aches Crozer Required: No Accompanied by: Self / Same As Patient Allergies celecoxib [From Celebrex] Allergy (Intermediate, Verified 12/03/22 12:06) ITCHING Effexor Allergy (Unknown, Verified 12/03/22 12:06) itching metronidazole Allergy (Unknown, Verified 12/03/22 12:06) rash sertraline [Zoloft] Allergy (Unknown, Verified 12/03/22 12:06) itching Sulfa (Sulfonamide Antibiotics) Allergy (Unknown, Verified 12/03/22 12:06) unknown, yeast infection sulfamethoxazole [From BACTRIM] Allergy (Unknown, Verified 12/03/22 12:06) ITCHING trimethoprim [From BACTRIM] Allergy (Unknown, Verified 12/03/22 12:06) ITCHING naproxen [From Naprosyn] Allergy (Verified 12/03/22 12:06) Itching tramadol Adverse Reaction (Intermediate, Verified 12/03/22 12:06) Nausea alprazolam [From XANAX] Adverse Reaction (Mild, Verified 12/03/22 12:06) CONFUSION Medication List - Last Reconciled 12/03/22 by Elier Olmstead MD [1 03/10 in heel lift As directed] amlodipine 5 mg PO DAILY 90 days diclofenac sodium 75 mg PO BID PRN ibuprofen 800 mg PO DAILY PRN ketorolac 10 mg PO TID PRN 5 days lidocaine 5% (Lidoderm) 1 patch topical DAILY PRN lorazepam 0.5 mg PO TID PRN 30 days off loading boot (Aircast off loading boot) As directed prednisone 40 mg (2 x 20 mg) PO DAILY 5 days pyridoxine (vitamin B6) 100 mg PO DAILY 90 days semaglutide (weight loss) (Wegovy) 0.25 mg (0.5 mL) subcut QWEEK tamsulosin (Flomax) 0.4 mg PO DAILY 2 weeks tizanidine 4 mg PO Q8H PRN 30 days Tobacco use date assessed: 12/03/22 Dental Screening Dental Screen Date: 12/03/22 Did you have a dental visit in the last 12 months?: No Did you have a dental problem in the last 6 months where you did not have access to dental care?: No Was dental information given to patient?: Patient has dentist HPI sore throat, fever, body aches HPI Details Patient's follow-up visit / consultation today is done over the phone - this is a Telehealth visit Patient's current medications have been reviewed and verified with patient and / or caregiver / proxy and have been updated accordingly in the medication list Patient reports that she has been feeling sick for the past couple of days States that she started experiencing sore throat, fatigue and body aches last night and woke up earlier this morning with a pounding headache States that her has been sick for a few days and thinks she may have caught something from her Tried testing herself for COVID last night and the test came out negative but she then found out that the test kit is Thinks that they were exposed to someone who was sick a few days ago She denies any fever but reports feeling very tired and has recurrent headaches and sore throat as well as some nasal and sinus congestion and occasional non-productive cough She denies any chest pains, no SOB No nausea/vomiting, no abdominal pain No change in bowel habits noted [facility] Medical History HPV (human papilloma virus) infection Renal calculi Pyelonephritis Lumbar degenerative disc disease Horseshoe kidney Anxiety Obesity (BMI 30-39.9) Benign essential hypertension Gestational HTN Surgical History History of extraction of renal calculus Back pain with history of spinal surgery H/O wrist surgery Family History Father HIV (human immunodeficiency virus infection) Mother CVD (cardiovascular disease) Maternal Grandmother Breast cancer Diabetes Hypertension Maternal Grandfather Prostate cancer Paternal Grandmother CVD (cardiovascular disease) Paternal Grandfather Prostate cancer Sister In good health CHF (congestive heart failure) Son In good health Social History Household Members: Spouse Housing: Apartment Are you a primary home care associate to a significant other at home: No Do you presently have visiting nurse or other home services: No Alcohol intake: never Patient Tobacco Use Status: Never used Tobacco e-Cigarette/Vaping Use: Never Used Second Hand Smoke Exposure: No service: No (HPD) Current occupational status: employed Cognitive needs: No Hearing needs: No Vision needs: No Questionnaire PHQ-9 Over the last 2 weeks, how often have you been bothered by any of the following problems? 1. Little interest or pleasure in doing things: not at all 2. Feeling down, depressed, or hopeless: not at all 3. Trouble falling or staying asleep, or sleeping too much: not at all 4. Feeling tired or having little energy: not at all 5. Poor appetite or overeating: not at all 6. Feeling bad about yourself - or that you are a failure or have let yourself or your family down: not at all 7. Trouble concentrating on things, such as reading the newspaper or watching television: not at all 8. Moving or speaking so slowly that other people could have noticed. Or the opposite - being so fidgety or restless that you have been moving around a lot more than usual: not at all 9. Thoughts that you would be better off or of hurting yourself in some way: not at all Total score: 0 Depression Screening Interpretation: Negative 94754 - PHQ-9 Billing: Yes Source: Developed by Drs. Ole Ovalle, Jazzy Andrade, Sergio Lucio and colleagues, with an educational alex from [employer]. Thrive Questionnaire Date Thrive assessed: 12/03/22 I am a: Patient What is your living situation today?: I have a steady place to live Within the past 12 months, did the food you bought not last and you didn't have the money to get more?: Never true Within the past 12 months, did you worry whether your food would run out before you got money to buy more?: Never true Do you have trouble paying for medicines?: No Do you have trouble getting transportation to medical appointments?: No Do you have trouble paying your heating and electricity bill?: No Do you have trouble taking care of your child, family member or friend?: No Do you have trouble with day-to-day activities such as bathing, preparing meals, shopping, managing finances, etc.?: No Are you currently unemployed and looking for a job?: No Are you interested in more education?: No Please select the resources that you would like help with: None Currently or been in a relationship where the following occur: no concerns reported AUDIT C Alcohol Use Questionnaire (AUDIT-C) 1. How often do you have a drink containing alcohol?: Monthly or less 2. How many drinks containing alcohol do you have on a typical day when you are drinking?: 1 or 2 3. How often do you have six or more drinks on one occasion?: Never Total Score: 1 Score Reviewed/Action Taken: Yes EMMY-7 AMB Questionnaire EMMY-7 Date EMMY - 7 assessed: 12/03/22 Feeling nervous, anxious, or on edge: 0 = Not at all Not being able to stop or control worryin = Not at all Worrying too much about different things: 0 = Not at all Trouble relaxin = Not at all Being so restless that it is hard to sit still: 0 = Not at all Becoming easily annoyed or irritable: 0 = Not at all Feeling afraid as if something awful might happen: 0 = Not at all Total EMMY-7 score (0-4 normal; 5-9 mild; 10-14 moderate; 15-21 severe): 0 Source: Developed by Drs. Ole Ovalle, Jazzy Andrade, Sergio Lucio and colleagues, with an educational alex from [employer]. Review of Systems Const Denies chills, Reports fatigue, Denies fever(s), Reports headache(s) and Reports malaise ENT Denies dysphagia, Denies dizziness, Denies otalgia, Reports headache(s), Reports nasal congestion, Denies neck pain, Denies odynophagia, Reports sinus pressure and Reports sore throat Card Denies chest pain, Denies rapid heart rate, Denies palpitations and Denies dyspnea Resp Reports chest congestion (mild), Reports cough (on and off, non-productive), Denies dyspnea and Denies wheezing GI Denies abdominal pain, Denies constipation, Denies dysphagia, Denies diarrhea, Denies nausea, Denies odynophagia and Denies vomiting Musc Denies neck pain Skin/Breast Denies rash Neuro Denies dizziness and Reports headache(s) Endo Reports fatigue and Denies palpitations Aller/Immun Denies wheezing Physical exam (Primary Care) Vital Signs: Physical examination is not performed as visit / consultation today is done over the phone - Telehealth visit All physical findings indicated here, if present, are as per patient's and / or caregivers / proxy's report Tobacco/Smoking Status: Tobacco use Status Tobacco use date assessed 12/03/22 12/03/22 11:17 Patient Tobacco Use Status Never used Tobacco 12/03/22 11:17 e-Cigarette/Vaping Use Never Used 12/03/22 11:17 PHQ-9: PHQ-9 Score PHQ-9: Total score 0 12/03/22 11:17 Depression Screening Interpretation: Negative Thrive Assessment: Date of Thrive Assessment Date Thrive assessed 12/03/22 12/03/22 11:17 Currently or been in a relationship where the following occur: no concerns reported Telehealth Telehealth Location of provider rendering services: practice address Location of patient: address on file Patient Identification confirmed using: Name, : Yes Telehealth method: voice only Patient verbally consented to treatment: Yes Patient verbally consented to billing insurance company: Yes Patient informed of any privacy concerns related to visit: Yes Minutes spent on Phone/Video with Pt.: 15 Assessment and Plan Assessment & Plan (1) Respiratory tract infection: Code(s): J98.8 - Other specified respiratory disorders Plan: Patient is advised that with her current symptoms, she SHOULD get properly tested for COVID Will send her to the lab to get tested ANKITA Advised that Tx or Rx will depend on how her tests come out For now, would recommend she take OTC cough/cold meds PRN for symptomatic relief and OTC Tylenol PRN for her headaches Encouraged to drink plenty of fluids and bed rest as well Plan Follow up as scheduled in a few months Orders: Orders SARS-CoV2/FLU/RSV Today J98.8 - Other specified respiratory disorders Coding Level of Care Code Tele Est Pt Level 3 (68824) Diagnoses Respiratory tract infection J98.8
== END 2022-12-03 12:16 | disposition home or self-care (01) ==
LOC: HO.HMGH 11:13
PROVIDERS: PCP Internal Medicine; Visit Provider Internal Medicine
DX: J98.8 Other specified respiratory disorders (principal)
CPT/HCPCS: 99213

== ENCOUNTER 2022-12-03 13:15 | Outpatient (REF) | payer OTHER, SELFPAY ==
[2022-12-03 14:06] LABS: Influenza A PCR NEGATIVE (Negative); Influenza B PCR NEGATIVE (Negative); Resp Syncy Virus RNA Qual PCR NEGATIVE (Negative); SARS COV2 PCR INHOUSE NEGATIVE (Negative)
== END 2022-12-03 13:16 | disposition home or self-care (01) ==
LOC: HO.LAB 13:15
PROVIDERS: PCP Internal Medicine; Visit Provider Internal Medicine
DX: J98.8 Other specified respiratory disorders (principal); Z20.822 Contact with and (suspected) exposure to COVID-19
CPT/HCPCS: 0241U

== ENCOUNTER 2022-12-15 08:24 | Outpatient (AMB) | payer OTHER, SELFPAY ==
--- NOTE | 2022-12-15 08:25 | MHC.OFFVIS ---
Intake Intake Visit Reasons: 6m/US(set) Intake Note: Patient is Present for Telephone Follow Up For Ultrasound Results Urology Med:Tamsulosin, Vitamin B6 Antibiotic Allergy: Trimethroprim, Sulfa, Bactrim, Blood Thinner: None Pharamcy: [facility] Allergies celecoxib [From Celebrex] Allergy (Intermediate, Verified 12/15/22 08:26) ITCHING Effexor Allergy (Unknown, Verified 12/15/22 08:26) itching metronidazole Allergy (Unknown, Verified 12/15/22 08:26) rash sertraline [Zoloft] Allergy (Unknown, Verified 12/15/22 08:26) itching Sulfa (Sulfonamide Antibiotics) Allergy (Unknown, Verified 12/15/22 08:26) unknown, yeast infection sulfamethoxazole [From BACTRIM] Allergy (Unknown, Verified 12/15/22 08:26) ITCHING trimethoprim [From BACTRIM] Allergy (Unknown, Verified 12/15/22 08:26) ITCHING naproxen [From Naprosyn] Allergy (Verified 12/15/22 08:26) Itching tramadol Adverse Reaction (Intermediate, Verified 12/15/22 08:26) Nausea alprazolam [From XANAX] Adverse Reaction (Mild, Verified 12/15/22 08:26) CONFUSION HPI HPI Comments History of Present Illness Details [place] very pleasant female. She is a patient of Dr. Olmstead. She is seen for following urologic conditions - recurrent nephrolithiasis Telemedicine evaluation 15 minute consultation [employer] randy Video Recent ER visit with right-sided pain Ultrasound consistent with passage of stone Has continued with weight loss and reduce sodium intake Nephrolithiasis Here following stone procedure - horseshoe kidney Has had previous stones Stone analysis 10/25 mixed calcium oxalate with calcium apaptite Prior interventions - 10/25 right-sided distal ureteroscopy laser lithotripsy stent placement - 06/25 right ESWL - 11/26 right ureteroscopy laser lithotripsy Imaging - 06/25 renal ultrasound with 5 mm stone on right side - 11/25 CT scan the distal right ureteric stone with mild hydronephrosis. No other stones seen - 01/25 renal ultrasound question of 3 mm stone on right - 08/26 renal ultrasound 6 mm right mid pole - 10/27 renal US mild fullness right side Stone composition - 10/25 mixed calcium oxalate with calcium phosphate - 11/26 calcium oxalate with calcium phosphate Litholink - 01/26 good volume, high citrate - high calcium, high sodium Therapeutic plan - encourage fluids - interval surveillance [facility] Medical History HPV (human papilloma virus) infection Renal calculi Pyelonephritis Lumbar degenerative disc disease Horseshoe kidney Anxiety Obesity (BMI 30-39.9) Benign essential hypertension Gestational HTN Surgical History History of extraction of renal calculus Back pain with history of spinal surgery H/O wrist surgery Family History Father HIV (human immunodeficiency virus infection) Mother CVD (cardiovascular disease) Maternal Grandmother Breast cancer Diabetes Hypertension Maternal Grandfather Prostate cancer Paternal Grandmother CVD (cardiovascular disease) Paternal Grandfather Prostate cancer Sister In good health CHF (congestive heart failure) Son In good health Social History Household Members: Spouse Housing: Apartment Are you a primary respiratory care technician to a significant other at home: No Do you presently have visiting nurse or other home services: No Alcohol intake: never Patient Tobacco Use Status: Never used Tobacco e-Cigarette/Vaping Use: Never Used Second Hand Smoke Exposure: No service: No (HPD) Current occupational status: employed Cognitive needs: No Hearing needs: No Vision needs: No Review of Systems Const All systems reviewed & are unremarkable except as noted in HPI and below Reports no additional complaints Resp Reports no additional complaints GI Reports no additional complaints Reports as per HPI Musc Reports no additional complaints Physical Exam Telemedicine evaluation Appropriate responses Regular breathing rate and rhythm HEENT Head: Yes normal to inspection Ears: hearing grossly normal bilaterally Eyes General: appearance normal, both eyes and all related structures Neck Neck: Yes normal visual inspection Chest Chest palpation & inspection: normal inspection of the chest Resp Effort & Inspection: normal respiratory effort and able to speak in complete sentences Assessment & Plan Assessment & Plan (1) Recurrent kidney stones: Comment: Calcium oxalate and calcium phosphate Code(s): N20.0 - Calculus of kidney Orders: Orders US renal BI 6 Months N20.0 - Calculus of kidney Patient Instructions: Imaging studies, laboratory and physical exam results were discussed and reviewed in detail. No major barriers to patient understanding were identified. An opportunity to ask questions regarding the treatment plan was provided. All questions were answered. The patient expressed understanding and agreement with the above treatment plan. The patient is aware they should contact our office by phone for worsening of their current condition or the appearance of new urologic symptoms. Compliance is encouraged with any medications and followup testing that is ordered. It is a privilege to participate in the urologic care of your patient. If you have any questions or concerns regarding treatment for the above conditions, or other urologic issues, please do not hesitate to contact me. The office telephone contact is [phone]. This note is constructed using voice recognition software. While every effort has been made to ensure accuracy energy project engineer errors may have been included. Yours sincerely, Dr Jose Alfredo Addison MD, [facility] - Urology Providers of Expert, Compassionate Care for the Genitourinary System Telehealth Telehealth Location of provider rendering services: practice address Location of patient: address on file Patient Identification confirmed using: Name, : Yes Telehealth method: video Patient verbally consented to treatment: Yes Patient verbally consented to billing insurance company: Yes Patient informed of any privacy concerns related to visit: Yes Coding Level of Care Code Tele Est Pt Level 3 (82044) Diagnoses Recurrent kidney stones N20.0
== END 2022-12-15 09:03 | disposition home or self-care (01) ==
LOC: HO.HUSH 08:24
PROVIDERS: PCP Internal Medicine; Visit Provider Urology
DX: N20.0 Calculus of kidney (principal)
CPT/HCPCS: 99213

== ENCOUNTER → 2022-12-15 08:24 | Outpatient (BNVA) | payer OTHER, SELFPAY | PROVIDERS: PCP Internal Medicine; Visit Provider Urology ==

== ENCOUNTER 2022-12-18 12:56 | Outpatient (REF) | payer OTHER, SELFPAY ==
--- NOTE | ~2022-12-18 | MR_ITS ---
EXAMINATION: MR ANKLE WITHOUT CONTRAST, LEFT CLINICAL INFORMATION: Pain. Patient reports 2.5 months pain, swelling, injury. COMPARISON: X-ray 09/20/2022. TECHNIQUE: MRI of the ankle without contrast is performed in a 1.5 Marva high-field scanner. FINDINGS: BONE/JOINTS: In the medial talar dome, subchondral edema, at the articular surface measuring approximately 0.4 x 1 cm, (transverse, AP). There is overlying cartilage irregularity. No loose or unstable osteochondral fragments are seen. No acute fracture or dislocation is otherwise seen. Mild 1st tarsometatarsal arthritis. Small tibiotalar joint fluid. MUSCLES/TENDONS: Mild distal posterior tibial tendinosis, mild peritendinitis/tenosynovitis. Flexor digitorum longus, flexor hallucis longus are intact. Mild peroneus longus peritendinitis/tenosynovitis. Peroneal tendon is intact. Mild extensor digitorum peritendinitis/tenosynovitis in the myotendinous region. Extensor tendons are intact. LIGAMENTS: Talofibular, tibiofibular ligaments intact. Mild sprain calcaneofibular ligament. Mild heterogeneity of the deltoid ligament may reflect sprain injury. ACHILLES TENDON: Minimal T2 signal in the Achilles tendon, could reflect physiological signal versus minimal tendinosis. No tear. PLANTAR FASCIA: Intact. SINUS TARSI: Normal signal. TARSAL TUNNEL : No mass lesion. SUBCUTANEOUS SOFT TISSUES: Lateral ankle subcutaneous edema. MR/MR ankle LT wo con IMPRESSION: 1. Medial talar dome osteochondral lesion/osteochondritis dissecans measuring 0.4 x 1 cm. No loose or unstable osteochondral fragments are seen. 2. Mild distal posterior tibial tendinosis, mild peritendinitis/tenosynovitis. Mild peroneus longus peritendinitis/tenosynovitis. Mild extensor digitorum peritendinitis/tenosynovitis. 3. Possible mild sprain deltoid ligament. 4. Physiological signal versus minimal Achilles tendinosis.
== END 2022-12-18 12:57 | disposition home or self-care (01) ==
LOC: HO.MRI 12:56
PROVIDERS: PCP Internal Medicine; Visit Provider Physician Assistant
DX: S93.401A Sprain of unspecified ligament of right ankle, initial encounter (principal)
CPT/HCPCS: 73721

== ENCOUNTER 2022-12-20 09:05 | Outpatient (AMB) | payer OTHER, SELFPAY ==
--- NOTE | 2022-12-20 09:06 | MHC.PC.OV ---
Vital Signs 12/20/22 09:07 Height 5 ft 6 in Weight 186 lb BMI 30.0 BP 110/78 Blood Pressure Location Lt brachial Position Sitting Pulse 75 Pulse Source Pulse Oximeter Pulse Oximetry (%) 98 Oxygen Delivery Method Room Air Intake Visit Reasons: discuss results of MRI Intake Note: Patient states she is having a lot of pain on left ankle that shoot up to her calf. Security Control Assessor Required: No Accompanied by: Self / Same As Patient Allergies celecoxib [From Celebrex] Allergy (Intermediate, Verified 12/20/22 09:19) ITCHING Effexor Allergy (Unknown, Verified 12/20/22 09:19) itching metronidazole Allergy (Unknown, Verified 12/20/22 09:19) rash sertraline [Zoloft] Allergy (Unknown, Verified 12/20/22 09:19) itching Sulfa (Sulfonamide Antibiotics) Allergy (Unknown, Verified 12/20/22 09:19) unknown, yeast infection sulfamethoxazole [From BACTRIM] Allergy (Unknown, Verified 12/20/22 09:19) ITCHING trimethoprim [From BACTRIM] Allergy (Unknown, Verified 12/20/22 09:19) ITCHING naproxen [From Naprosyn] Allergy (Verified 12/20/22 09:19) Itching tramadol Adverse Reaction (Intermediate, Verified 12/20/22 09:19) Nausea alprazolam [From XANAX] Adverse Reaction (Mild, Verified 12/20/22 09:19) CONFUSION Medication List - Last Reconciled 12/20/22 by Elier Olmstead MD [1 03/10 in heel lift As directed] amlodipine 5 mg PO DAILY 90 days diclofenac sodium 75 mg PO BID PRN ibuprofen 800 mg PO DAILY PRN ketorolac 10 mg PO TID PRN 5 days lidocaine 5% (Lidoderm) 1 patch topical DAILY PRN lorazepam 0.5 mg PO TID PRN 30 days off loading boot (Aircast off loading boot) As directed pyridoxine (vitamin B6) 100 mg PO DAILY 90 days semaglutide (weight loss) (Wegovy) 0.25 mg (0.5 mL) subcut QWEEK tamsulosin (Flomax) 0.4 mg PO DAILY 2 weeks tizanidine 4 mg PO Q8H PRN 30 days Tobacco use date assessed: 12/20/22 Dental Screening Dental Screen Date: 12/20/22 Did you have a dental visit in the last 12 months?: Yes Did you have a dental problem in the last 6 months where you did not have access to dental care?: No Was dental information given to patient?: Patient has dentist HPI discuss results of MRI HPI Details Patient comes in today for follow up of her ankle injury and to discuss further the results of her ankle MRI done a few days ago States that she hurt (sprained) her left ankle 3 months ago today and is still having a lot of problems and pain in her ankle She is presently still wearing a soft cast on her ankle, has been to physical therapy for weeks now and is frustrated that her ankle feels not significantly better after all this time She saw her ankle MRI report and is concerned about some of the things she read and would like further clarifications on these She is also scheduled to see orthopedics tomorrow via telehealth for follow up of her ankle injury and would like to know what needs to be done next to help her get her ankle back to normal No other acute complaints or symptoms are noted [facility] Medical History HPV (human papilloma virus) infection Renal calculi Pyelonephritis Lumbar degenerative disc disease Horseshoe kidney Anxiety Obesity (BMI 30-39.9) Benign essential hypertension Gestational HTN Surgical History History of extraction of renal calculus Back pain with history of spinal surgery H/O wrist surgery Family History Father HIV (human immunodeficiency virus infection) Mother CVD (cardiovascular disease) Maternal Grandmother Breast cancer Diabetes Hypertension Maternal Grandfather Prostate cancer Paternal Grandmother CVD (cardiovascular disease) Paternal Grandfather Prostate cancer Sister In good health CHF (congestive heart failure) Son In good health Social History Household Members: Spouse Housing: Apartment Are you a primary hemodialysis patient care specialist to a significant other at home: No Do you presently have visiting nurse or other home services: No Alcohol intake: never Patient Tobacco Use Status: Never used Tobacco e-Cigarette/Vaping Use: Never Used Second Hand Smoke Exposure: No service: No (HPD) Current occupational status: employed Cognitive needs: No Hearing needs: No Vision needs: No Questionnaire PHQ-9 Over the last 2 weeks, how often have you been bothered by any of the following problems? 1. Little interest or pleasure in doing things: not at all 2. Feeling down, depressed, or hopeless: not at all 3. Trouble falling or staying asleep, or sleeping too much: not at all 4. Feeling tired or having little energy: not at all 5. Poor appetite or overeating: not at all 6. Feeling bad about yourself - or that you are a failure or have let yourself or your family down: not at all 7. Trouble concentrating on things, such as reading the newspaper or watching television: not at all 8. Moving or speaking so slowly that other people could have noticed. Or the opposite - being so fidgety or restless that you have been moving around a lot more than usual: not at all 9. Thoughts that you would be better off or of hurting yourself in some way: not at all Total score: 0 Depression Screening Interpretation: Negative Depression Screening Done: Yes 80348 - PHQ-9 Billing: Yes Source: Developed by Drs. Ole Ovalle, Jazzy Andrade, Sergio Lucio and colleagues, with an educational alex from [employer]. Thrive Questionnaire Date Thrive assessed: 12/20/22 I am a: Patient What is your living situation today?: I have a steady place to live Within the past 12 months, did the food you bought not last and you didn't have the money to get more?: Never true Within the past 12 months, did you worry whether your food would run out before you got money to buy more?: Never true Do you have trouble paying for medicines?: No Do you have trouble getting transportation to medical appointments?: No Do you have trouble paying your heating and electricity bill?: No Do you have trouble taking care of your child, family member or friend?: No Do you have trouble with day-to-day activities such as bathing, preparing meals, shopping, managing finances, etc.?: No Are you currently unemployed and looking for a job?: No Are you interested in more education?: No Please select the resources that you would like help with: None Currently or been in a relationship where the following occur: no concerns reported AUDIT C Alcohol Use Questionnaire (AUDIT-C) 1. How often do you have a drink containing alcohol?: Monthly or less 2. How many drinks containing alcohol do you have on a typical day when you are drinking?: 1 or 2 3. How often do you have six or more drinks on one occasion?: Never Total Score: 1 Score Reviewed/Action Taken: Yes EMMY-7 AMB Questionnaire EMMY-7 Date EMMY - 7 assessed: 12/20/22 Feeling nervous, anxious, or on edge: 0 = Not at all Not being able to stop or control worryin = Not at all Worrying too much about different things: 0 = Not at all Trouble relaxin = Not at all Being so restless that it is hard to sit still: 0 = Not at all Becoming easily annoyed or irritable: 0 = Not at all Feeling afraid as if something awful might happen: 0 = Not at all Total EMMY-7 score (0-4 normal; 5-9 mild; 10-14 moderate; 15-21 severe): 0 Source: Developed by Drs. Ole Ovalle, Jazzy Andrade, Sergio Lucio and colleagues, with an educational alex from [employer]. Review of Systems Const Denies fatigue, Denies fever(s) and Denies headache(s) ENT Denies dysphagia, Denies dizziness, Denies otalgia, Denies headache(s), Denies neck pain, Denies odynophagia and Denies sore throat Card Denies chest pain, Denies rapid heart rate, Denies irregular heart rhythm, Denies palpitations and Denies dyspnea Resp Denies cough and Denies dyspnea GI Denies abdominal pain, Denies constipation, Denies dysphagia, Denies heartburn, Denies diarrhea, Denies nausea, Denies odynophagia and Denies vomiting Denies hematuria, Denies urinary frequency and Denies dysuria Musc Reports back pain (mild), Reports arthralgias (left ankle), Reports joint swelling (on and off in the left ankle) and Denies neck pain Skin/Breast Denies rash Neuro Denies dizziness, Denies headache(s) and Denies paresthesias Psych Denies anxiety and Denies depression Endo Denies fatigue and Denies palpitations Andres/Lymph Denies easy bruising Physical exam (Primary Care) Vital Signs: Last Vital Signs Pulse 75 12/20/22 09:07 BP 110/78 12/20/22 09:07 Pulse Ox 98 12/20/22 09:07 Oxygen Delivery Method Room Air 12/20/22 09:07 BMI result Body Mass Index 30.0 Tobacco/Smoking Status: Tobacco use Status Tobacco use date assessed 12/20/22 12/20/22 09:12 Patient Tobacco Use Status Never used Tobacco 12/20/22 09:12 e-Cigarette/Vaping Use Never Used 12/20/22 09:12 PHQ-9: PHQ-9 Score PHQ-9: Total score 0 12/20/22 09:21 Depression Screening Interpretation: Negative Thrive Assessment: Date of Thrive Assessment Date Thrive assessed 12/20/22 12/20/22 09:12 Currently or been in a relationship where the following occur: no concerns reported Const General: no acute distress and alert HENMT Ears: TM's normal bilaterally and EAC's normal Throat: Yes posterior oropharynx normal and Yes tonsils normal (no TP congestion) Neck Neck: Yes no lymphadenopathy and Yes supple Thyroid: Thyroid normal Resp Auscultation: clear to auscultation bilaterally, no rales and no wheezes Cardio Rate: regular rate Rhythm: regular rhythm Heart sounds: no murmurs GI Palpation (GI): Soft to palpation and nontender Auscultation: normal bowel sounds Back/Spine/Pelvis Thoracic/Lumbar Spine: thoracic and lumbar spine normal to inspection and lumbar spinal tenderness Skin Rashes: no rashes Extrem Other: left ankle/lower leg is still in an aircast General: Yes no clubbing, cyanosis or edema Left lower extremity: ankle Details: tenderness and swelling Assessment and Plan Assessment & Plan (1) Grade 3 ankle sprain: Comment: Left ankle Code(s): S93.409A - Sprain of unspecified ligament of unspecified ankle, initial encounter Plan: Patient is currently still wearing an aircast on her left ankle and she continues to experience recurrent pain and swelling in her ankle even though her injury occurred 3 months ago She has been to physical therapy for a few weeks now and feels that rehab has not really helped much An MRI of her left ankle was done a few days ago, which revealed an osteochondral lesion /osteochondritis desiccans measuring 0.4 x 1 cm the medial talar dome with mild distal posterior tibial tendinosis, mild peroneus longus rogerio tendonitis and mild extensor digitorum peritendinitis, possible mild sprain of the deltoid ligament and minimal Achilles tendinosis She has a telehealth visit scheduled with orthopedics tomorrow - advised that we should wait and see what orthopedics recommend and go from there Continue Ibuprofen 800 mg TID with food PRN - Rx refilled Plan Follow up as scheduled in March 2023 and PRN Medications: Refilled ibuprofen Take with food 800 mg PO DAILY PRN 30 tabs 2RF pain Coding Level of Care Code Est Pt Level 3 (56149) Diagnoses Grade 3 ankle sprain S93.409A
[2022-12-20 09:07] VITALS: BP 110/78; PULSE 75; O2SAT 98
== END 2022-12-20 09:46 | disposition home or self-care (01) ==
LOC: HO.HMGH 09:05
PROVIDERS: PCP Internal Medicine; Visit Provider Internal Medicine
DX: S93.409A Sprain of unspecified ligament of unspecified ankle, initial encounter (principal)
CPT/HCPCS: 99213

== ENCOUNTER 2022-12-21 14:58 | Outpatient (AMB) | payer OTHER, SELFPAY ==
--- NOTE | 2022-12-21 14:59 | A.OFFVIS_ITS ---
Intake Intake Visit Reasons: OV-left ankle pain/follow up Intake Note: Shirlene is a 42 year old female who presents today for a follow up appointment for her left ankle pain. Patient reports still having pain with no improvements. She states after PT her pain gets worse. Allergies celecoxib [From Celebrex] Allergy (Intermediate, Verified 12/21/22 15:13) ITCHING Effexor Allergy (Unknown, Verified 12/21/22 15:13) itching metronidazole Allergy (Unknown, Verified 12/21/22 15:13) rash sertraline [Zoloft] Allergy (Unknown, Verified 12/21/22 15:13) itching Sulfa (Sulfonamide Antibiotics) Allergy (Unknown, Verified 12/21/22 15:13) unknown, yeast infection sulfamethoxazole [From BACTRIM] Allergy (Unknown, Verified 12/21/22 15:13) ITCHING trimethoprim [From BACTRIM] Allergy (Unknown, Verified 12/21/22 15:13) ITCHING naproxen [From Naprosyn] Allergy (Verified 12/21/22 15:13) Itching tramadol Adverse Reaction (Intermediate, Verified 12/21/22 15:13) Nausea alprazolam [From XANAX] Adverse Reaction (Mild, Verified 12/21/22 15:13) CONFUSION HPI OV-left ankle pain/follow up HPI Details 42-year-old female who presents in the [facility] today for a follow up of her left ankle sprain. The patient states she has extreme pain that is causing her to be depressed. She states she has pain in her great toe. She claims the pain is a 7/10 in the ankle. She reports the pain in shooting to her calf. She reports she participates in physical therapy 3 times a week. She claims attending physical therapy is causing her increased pain. She is attending a facility on [address]. She confirms taking Motrin for pain relief. 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 She presents to the office in the short walking boot. [facility] Medical History HPV (human papilloma virus) infection Renal calculi Pyelonephritis Lumbar degenerative disc disease Horseshoe kidney Anxiety Obesity (BMI 30-39.9) Benign essential hypertension Gestational HTN Surgical History History of extraction of renal calculus Back pain with history of spinal surgery H/O wrist surgery Family History Father HIV (human immunodeficiency virus infection) Mother CVD (cardiovascular disease) Maternal Grandmother Breast cancer Diabetes Hypertension Maternal Grandfather Prostate cancer Paternal Grandmother CVD (cardiovascular disease) Paternal Grandfather Prostate cancer Sister In good health CHF (congestive heart failure) Son In good health Social History Household Members: Spouse Housing: Apartment Are you a primary rn progressive care unit to a significant other at home: No Do you presently have visiting nurse or other home services: No Alcohol intake: never Patient Tobacco Use Status: Never used Tobacco e-Cigarette/Vaping Use: Never Used Second Hand Smoke Exposure: No service: No ([employer]) Current occupational status: employed Cognitive needs: No Hearing needs: No Vision needs: No Review of Systems Const All systems reviewed & are unremarkable except as noted in HPI and below Physical Exam Const General: cooperative, healthy appearing and no acute distress Resp Effort & Inspection: normal respiratory effort and able to speak in complete sentences Cardio Rate: regular rate Peripheral pulses: Peripheral pulses 2+ throughout GI Palpation (GI): Soft to palpation Skin Lesions: no lesions Rashes: no rashes Extrem Other: Left ankle: Mild circumferential edema. Extreme tenderness to palpation over the tibia and peroneal tendons. Able to perform minimal dorsiflexion, plantarflexion, pronation, and supination with pain. NVI. Assessment & Plan Assessment & Plan (1) Grade 3 ankle sprain: Comment: Left ankle Code(s): S93.409A - Sprain of unspecified ligament of unspecified ankle, initial encounter Plan Ms. Mcdermott is a 42-year-old female who presents in the office today for a follow up of her left ankle sprain. The patient states she has extreme pain that is causing her to be depressed. She states she has pain in her great toe. She claims the pain is a 7/10 in the ankle. She reports the pain in shooting to her calf. She reports she participates in physical therapy 3 times a week. She claims attending physical therapy is causing her increased pain. She is attending a facility on [address]. She confirms taking Motrin for pain relief. 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 She presents to the office in the short walking boot. The patient can continue to work with physical therapy. I sent a prescription for Dicolfenac 75 mg PO BID PRN to the pharmacy. I discussed a possible referral to Pain Management she would like to defer at this time. I will place a referral to Podiatry, [facility], for further evaluation and treatment. She may continue to weight bear as tolerated in the boot. She can have physical therapy begin to wean her out of the boot into a supportive walking shoe. Follow up will be 4-6 weeks, or sooner if needed. MRI of the left ankle, obtained on 12/18/2022, revealed: 1. Medial talar dome osteochondral lesion/osteochondritis dissecans measuring 0.4 x 1 cm. No loose or unstable osteochondral fragments are seen. 2. Mild distal posterior tibial tendinosis, mild peritendinitis/tenosynovitis. Mild peroneus longus peritendinitis/tenosynovitis. Mild extensor digitorum peritendinitis/tenosynovitis. 3. Possible mild sprain deltoid ligament. 4. Physiological signal versus minimal Achilles tendinosis. Orders: Referrals Orthopedics Referral S93.409A - Sprain of unspecified ligament of unspecified ankle, initial encounter Medications: New diclofenac sodium 75 mg PO BID 30 days PRN 60 tabs 0RF pain Patient Instructions: Scribed for Katelyn Go PA-C by [facility] medical record consultant, on 12/21/2022 at 3:06 pm, EST. Coding Level of Care Code Est Pt Level 3 (82670) Diagnoses Grade 3 ankle sprain S93.409A
== END 2022-12-21 15:17 | disposition home or self-care (01) ==
PROVIDERS: PCP Internal Medicine; Visit Provider Physician Assistant
DX: S93.492A Sprain of other ligament of left ankle, initial encounter (principal); M93.272 Osteochondritis dissecans, left ankle and joints of left foot
CPT/HCPCS: 99214

== ENCOUNTER → 2022-12-21 14:58 | Outpatient (BNVA) | payer OTHER, SELFPAY | PROVIDERS: PCP Internal Medicine; Visit Provider Physician Assistant ==

== ENCOUNTER 2023-01-25 13:01 | Outpatient (AMB) | payer OTHER, SELFPAY ==
--- NOTE | 2023-01-25 13:03 | A.OFFVIS_ITS ---
Intake Vital Signs 01/25/23 13:03 Height 5 ft 6 in Weight 186 lb BMI 30.0 Intake Visit Reasons: OV-left ankle pain Intake Note: Shirlene is a 42 year old female who presents today for a follow up appointment for her left ankle pain. Patient reports the doctor she saw in [facility] he states that she has stiffness. She was recommend compression socks to help with stability. Allergies celecoxib [From Celebrex] Allergy (Intermediate, Verified 01/25/23 13:06) ITCHING Effexor Allergy (Unknown, Verified 01/25/23 13:06) itching metronidazole Allergy (Unknown, Verified 01/25/23 13:06) rash sertraline [Zoloft] Allergy (Unknown, Verified 01/25/23 13:06) itching Sulfa (Sulfonamide Antibiotics) Allergy (Unknown, Verified 01/25/23 13:06) unknown, yeast infection sulfamethoxazole [From BACTRIM] Allergy (Unknown, Verified 01/25/23 13:06) ITCHING trimethoprim [From BACTRIM] Allergy (Unknown, Verified 01/25/23 13:06) ITCHING naproxen [From Naprosyn] Allergy (Verified 01/25/23 13:06) Itching tramadol Adverse Reaction (Intermediate, Verified 01/25/23 13:06) Nausea alprazolam [From XANAX] Adverse Reaction (Mild, Verified 01/25/23 13:06) CONFUSION HPI OV-left ankle pain HPI Details 42-year-old female who presents in the [facility] today for a follow up of her left ankle sprain. The patient reports being seen at [facility] and was told she has stiffness. She reports that the provider she saw stated that she was in the boot for too long causing stiffness. However, she was having excruciating pain restricting her motion and causing difficulties with weightbearing. She was recommended to wear compression socks to help with stability and return to physical therapy. [facility] Medical History HPV (human papilloma virus) infection Renal calculi Pyelonephritis Lumbar degenerative disc disease Horseshoe kidney Anxiety Obesity (BMI 30-39.9) Benign essential hypertension Gestational HTN Surgical History History of extraction of renal calculus Back pain with history of spinal surgery H/O wrist surgery Family History Father HIV (human immunodeficiency virus infection) Mother CVD (cardiovascular disease) Maternal Grandmother Breast cancer Diabetes Hypertension Maternal Grandfather Prostate cancer Paternal Grandmother CVD (cardiovascular disease) Paternal Grandfather Prostate cancer Sister In good health CHF (congestive heart failure) Son In good health Household Members: Spouse Housing: Apartment Are you a primary chronic care nurse to a significant other at home: No Do you presently have visiting nurse or other home services: No Alcohol intake: never Patient Tobacco Use Status: Never used Tobacco e-Cigarette/Vaping Use: Never Used Second Hand Smoke Exposure: No service: No (H[employer]) Current occupational status: employed Cognitive needs: No Hearing needs: No Vision needs: No Review of Systems Const All systems reviewed & are unremarkable except as noted in HPI and below Physical Exam Vital Signs: BMI result Body Mass Index 30.0 Const General: cooperative, healthy appearing and no acute distress Resp Effort & Inspection: normal respiratory effort and able to speak in complete sentences Cardio Rate: regular rate Peripheral pulses: Peripheral pulses 2+ throughout GI Palpation (GI): Soft to palpation Skin Lesions: no lesions Rashes: no rashes Extrem Other: Left ankle: Mild circumferential edema. Extreme tenderness to palpation over the tibia and peroneal tendons. Able to perform minimal dorsiflexion, plantarflexion, pronation, and supination with pain. NVI. Assessment & Plan Assessment & Plan (1) Grade 3 ankle sprain: Comment: Left ankle Code(s): S93.409A - Sprain of unspecified ligament of unspecified ankle, initial encounter Plan: 42-year-old female who presents in the office today for a follow up of her left ankle sprain. The patient reports being seen at [facility] and was told she has stiffness. She reports that the provider she saw stated that she was in the boot for too long causing stiffness. However, she was having excruciating pain restricting her motion and causing difficulties with weightbearing. She was recommended to wear compression socks to help with stability and return to physical therapy. After reevaluation with the patient today I feel that she should continue with physical therapy to work on ROM. She is out of the boot and in a supportive shoe. She still reports pain. I discussed the case with Dr. Carballo and reviewed all imaging. He is in agreement with the plan. She will followup in 4-6 weeks sooner if needed. Patient Instructions: Scribed for Katelyn Go PA-C by [facility] medical underwriter, on 01/25/2023 at 1:02 pm, EST. Coding Level of Care Code Est Pt Level 3 (40324) Diagnoses Grade 3 ankle sprain S93.409A
== END 2023-01-25 13:22 | disposition home or self-care (01) ==
PROVIDERS: PCP Internal Medicine; Visit Provider Physician Assistant
DX: S93.492A Sprain of other ligament of left ankle, initial encounter (principal)
CPT/HCPCS: 99213

== ENCOUNTER → 2023-01-25 13:01 | Outpatient (BNVA) | payer OTHER, SELFPAY | PROVIDERS: PCP Internal Medicine; Visit Provider Physician Assistant ==

== ENCOUNTER 2023-01-26 07:40 | Outpatient (AMB) | payer OTHER, SELFPAY ==
--- NOTE | 2023-01-26 07:44 | AM.OFFVISNUR ---
Intake Intake Visit Reasons: uti symptoms Allergies celecoxib [From Celebrex] Allergy (Intermediate, Verified 01/25/23 13:06) ITCHING Effexor Allergy (Unknown, Verified 01/25/23 13:06) itching metronidazole Allergy (Unknown, Verified 01/25/23 13:06) rash sertraline [Zoloft] Allergy (Unknown, Verified 01/25/23 13:06) itching Sulfa (Sulfonamide Antibiotics) Allergy (Unknown, Verified 01/25/23 13:06) unknown, yeast infection sulfamethoxazole [From BACTRIM] Allergy (Unknown, Verified 01/25/23 13:06) ITCHING trimethoprim [From BACTRIM] Allergy (Unknown, Verified 01/25/23 13:06) ITCHING naproxen [From Naprosyn] Allergy (Verified 01/25/23 13:06) Itching tramadol Adverse Reaction (Intermediate, Verified 01/25/23 13:06) Nausea alprazolam [From XANAX] Adverse Reaction (Mild, Verified 01/25/23 13:06) CONFUSION Nursing Note Patient complaining of dysuria, vaginal itching and frequency. UA came back negative, results are in. Urine Specimen sent to lab for further testing. Results AMB Urinalysis, Automated UA Leukoctes 0 Teresa/uL Last Edit by Lou Bergman CMA on 01/26/23 08:03 UA Nitrite Negative Last Edit by Lou Bergman CMA on 01/26/23 08:03 UA Urobilinogen 0.2 mg/dL Last Edit by Lou Bergman, HIMANSHU on 01/26/23 08:03 UA Protein 0 mg/dL Last Edit by Lou Bergman CMA on 01/26/23 08:03 UA pH 6.0 Last Edit by Lou Bergman, HIMANSHU on 01/26/23 08:03 UA Blood 0 Sebastian/uL Last Edit by Lou Bergman, HIMANSHU on 01/26/23 08:03 UA Specific [place] 1.025 Last Edit by Lou Bergman CMA on 01/26/23 08:03 UA Ketone Negative Last Edit by Lou Bergman CMA on 01/26/23 08:03 UA Bilirubin 0 mg/dL Last Edit by Lou Bergman CMA on 01/26/23 08:03 UA Glucose 0 mg/dL Last Edit by Lou Bergman CMA on 01/26/23 08:03 Coding Assessment & Plan Assessment & Plan Orders: Orders AMB Urinalysis Automated Today N39.0 - Urinary tract infection, site not specified UA w Microscopic Today N39.0 - Urinary tract infection, site not specified Urine Culture Today N39.0 - Urinary tract infection, site not specified
== END 2023-01-26 07:58 | disposition home or self-care (01) ==
LOC: HO.HMGH 07:40
PROVIDERS: PCP Internal Medicine; Visit Provider Internal Medicine
DX: R30.0 Dysuria (principal)
CPT/HCPCS: 81003

== ENCOUNTER 2023-01-26 07:44 | Outpatient (REF) | payer OTHER, SELFPAY | END 2023-01-26 07:45 | disposition home or self-care (01) | LOC: HO.LAB 07:44 | PROVIDERS: Visit Provider Internal Medicine | DX: Z13.89 Encounter for screening for other disorder (principal) ==

== ENCOUNTER 2023-01-26 08:15 | Outpatient (REF) | payer OTHER, SELFPAY ==
[2023-01-26 08:21] LABS: Appearance Urine Clear; Color Urine Yellow; Glucose Urine UA Negative (Negative); Leukocyte Esterase Urine Negative (Negative); Nitrite Urine Negative (Negative); Urine Blood Negative (Negative); Urine Ketones Trace mg/dL (Negative); Urine Protein Negative (Neg-Trace)
[2023-01-26 08:23] LABS: Bacteria Urine 2+ (None Seen); Hyaline Casts Urine 0-2 /LPF (0-2); RBC Urine 0-2 /HPF (0-2); WBC Urine 0-5 /HPF (0-5)
== END 2023-01-26 08:16 | disposition home or self-care (01) ==
LOC: HO.LNP 08:15
PROVIDERS: Visit Provider Internal Medicine
DX: N39.0 Urinary tract infection, site not specified (principal)
CPT/HCPCS: 81001; 87086

== ENCOUNTER → 2023-02-10 14:54 | Outpatient (AMB) | payer OTHER, SELFPAY ==
--- NOTE | 2023-02-10 14:40 | AM.OFFVISNUR ---
Intake Intake Visit Reasons: 1st MMR dose Allergies celecoxib [From Celebrex] Allergy (Intermediate, Verified 01/26/23 15:58) Itching metronidazole Allergy (Unknown, Verified 01/26/23 15:58) Rash sertraline [Zoloft] Allergy (Unknown, Verified 01/26/23 15:58) Itching sulfamethoxazole [From BACTRIM] Allergy (Unknown, Verified 01/26/23 15:58) Itching trimethoprim [From BACTRIM] Allergy (Unknown, Verified 01/26/23 15:58) Itching naproxen [From Naprosyn] Allergy (Verified 01/25/23 13:06) Itching venlafaxine [From Effexor] Allergy (Verified 01/26/23 16:00) Itching tramadol Adverse Reaction (Intermediate, Verified 01/25/23 13:06) Nausea alprazolam [From XANAX] Adverse Reaction (Mild, Verified 01/26/23 15:58) Confusion Sulfa (Sulfonamide Antibiotics) Adverse Reaction (Unknown, Verified 01/26/23 15:58) yeast infection Immunizations M-M-R II (PF) 1,000-12,500 TCID50/0.5 mL subcutaneous solution Performing Provider: Elier Olmstead MD [facility] Administered by: Luzma Rodriguez RN on 02/10/23 14:53 Dose Route Admin Location Dispensed Lot Number Expiration Date [place] [employer] 0.5 mL subcut Right Arm 0.5 mL [id number] 05/18/24 6907-2774-12 [employer] D VIS Given Date VIS Provided VIS Publication Date 02/10/23 Single Vaccine 20 Eligibility Eligibility Date Funding Source Not [facility] Eligible 02/10/23 Private Coding Assessment & Plan Assessment & Plan Orders: Orders MMR Immunization Today Z23 - Encounter for immunization
== END | disposition home or self-care (01) ==
LOC: HO.HMGH 14:32
PROVIDERS: PCP Internal Medicine; Visit Provider Internal Medicine
DX: Z23 Encounter for immunization (principal)
CPT/HCPCS: 90471; 90707

== ENCOUNTER 2023-02-17 10:47 | Outpatient (AMB) | payer OTHER, SELFPAY ==
--- NOTE | 2023-02-17 11:07 | A.OFFVIS_ITS ---
Intake Intake Visit Reasons: OV-left ankle injection Intake Note: Shirlene is a 42 year old female who presents today for a follow up appointment for her left ankle pain. Patient reports she is doing okay but still felling discomfort and pain. Allergies celecoxib [From Celebrex] Allergy (Intermediate, Verified 02/17/23 11:07) Itching metronidazole Allergy (Unknown, Verified 02/17/23 11:07) Rash sertraline [Zoloft] Allergy (Unknown, Verified 02/17/23 11:07) Itching sulfamethoxazole [From BACTRIM] Allergy (Unknown, Verified 02/17/23 11:07) Itching trimethoprim [From BACTRIM] Allergy (Unknown, Verified 02/17/23 11:07) Itching naproxen [From Naprosyn] Allergy (Verified 02/17/23 11:07) Itching venlafaxine [From Effexor] Allergy (Verified 02/17/23 11:07) Itching tramadol Adverse Reaction (Intermediate, Verified 02/17/23 11:07) Nausea alprazolam [From XANAX] Adverse Reaction (Mild, Verified 02/17/23 11:07) Confusion Sulfa (Sulfonamide Antibiotics) Adverse Reaction (Unknown, Verified 02/17/23 11:07) yeast infection HPI OV-left ankle injection HPI Details 42-year-old female who presents in the [facility] today for a follow up of left ankle pain from an injury which occurred in 09/2022. The patient was last seen in the office by me on 12/21/2022 where her MRI was reviewed. She was referred to physical therapy and she was prescribed Dicolfenac 75 mg PO BID PRN. I also sent in a referral to [facility] for further evaluation of her ankle pain. We had discussed a referral to Pain Management but had deferred at that time. She was instructed to have physical therapy help her to wean out of the boot and transition to a supportive walking shoe. She states the ankle is not doing good. She claims the ankle gets hot to touch. She reports tingling in the left ankle. She states she tired to ride a bike but was unable to continue the use of it after 5 minutes. She confirms seeing Dr. Lim, a foot and ankle specialist, for a second opinion who told her foot was to stiff and she needs surgery. She reports she told her he would not do surgery because he feels it would make her worse. She was told to attend physical therapy and was instructed to choice between practices before she can move forward. She states she was ordered to wear a compression sock but it takes her to long to take off and on therefore she states she is not wearing it today. She states she was told pain is good and the edema was due to the boot. She confirms attending physical therapy 2 times a week with increased pain and edema after. She claims she applies ice to the ankle 2 times a day. She states her insurance will not cover her seeing both providers. Patient is currently working at [employer] at the [employer]. She states she is about to start a new job at [employer]. [facility] Medical History HPV (human papilloma virus) infection Renal calculi Pyelonephritis Lumbar degenerative disc disease Horseshoe kidney Anxiety Obesity (BMI 30-39.9) Benign essential hypertension Gestational HTN Surgical History History of extraction of renal calculus Back pain with history of spinal surgery H/O wrist surgery Family History Father HIV (human immunodeficiency virus infection) Mother CVD (cardiovascular disease) Maternal Grandmother Breast cancer Diabetes Hypertension Maternal Grandfather Prostate cancer Paternal Grandmother CVD (cardiovascular disease) Paternal Grandfather Prostate cancer Sister In good health CHF (congestive heart failure) Son In good health Social History Household Members: Spouse Housing: Apartment Are you a primary child care sitter to a significant other at home: No Do you presently have visiting nurse or other home services: No Alcohol intake: never Patient Tobacco Use Status: Never used Tobacco e-Cigarette/Vaping Use: Never Used Second Hand Smoke Exposure: No service: No (H[employer]) Current occupational status: employed Cognitive needs: No Hearing needs: No Vision needs: No Review of Systems Const All systems reviewed & are unremarkable except as noted in HPI and below Physical Exam Const General: cooperative, healthy appearing and no acute distress Resp Effort & Inspection: normal respiratory effort and able to speak in complete sentences Cardio Rate: regular rate Peripheral pulses: Peripheral pulses 2+ throughout GI Palpation (GI): Soft to palpation Skin Lesions: no lesions Rashes: no rashes Extrem Other: Left ankle: Mild circumferential edema. Extreme tenderness to palpation over the tibia and peroneal tendons. Able to perform minimal dorsiflexion, plantarflexion, pronation, and supination with pain. NVI. Assessment & Plan Assessment & Plan (1) Grade 3 ankle sprain: Comment: Left ankle Code(s): S93.409A - Sprain of unspecified ligament of unspecified ankle, initial encounter Plan Ms. Mcdermott is a 42-year-old female who presents in the office today for a follow up of left ankle pain from an injury which occurred in 09/2022. The patient was last seen in the office by me on 12/21/2022 where her MRI was reviewed. She was referred to physical therapy and she was prescribed Dicolfenac 75 mg PO BID PRN. I also sent in a referral to [facility] for further evaluation of her ankle pain. We had discussed a referral to Pain Management but had deferred at that time. She was instructed to have physical therapy help her to wean out of the boot and transition to a supportive walking shoe. She states the ankle is not doing good. She claims the ankle gets hot to touch. She reports tingling in the left ankle. She states she tired to ride a bike but was unable to continue the use of it after 5 minutes. She confirms seeing Dr. Lim, a foot and ankle specialist, for a second opinion who told her foot was to stiff and she needs surgery. She reports she told her he would not do surgery because he feels it would make her worse. She was told to attend physical therapy and was instructed to choice between practices before she can move forward. She states she was ordered to wear a compression sock but it takes her to long to take off and on therefore she states she is not wearing it today. She states she was told pain is good and the edema was due to the boot. She confirms attending physical therapy 2 times a week with increased pain and edema after. She claims she applies ice to the ankle 2 times a day. She states her insurance will not cover her seeing both providers. Patient is currently working at [employer] at the [employer]. She states she is about to start a new job at [employer]. Dr. Carballo was available to see the patient with me while in the office today and reviewed the MRI; a collaborative treatment plan was made. We discussed different options for the patient moving forward. She should only be in the boot when ambulating and limping otherwise she needs to be out of the boot to work on ROM. When she is out of the boot she needs to be working on gentle ROM. She needs to continue to work with physical therapy. I have placed an order for a stat CT scan to further evaluate the ankle. She will call the office after the CT is obtained. Follow up will be after the CT scan is obtained, or sooner if needed. Orders: Orders CT ankle LT wo IV con Today S93.409A - Sprain of unspecified ligament of unspecified ankle, initial encounter Patient Instructions: Scribed for Katelyn Go PA-C by [facility] medical record clerk, on 02/17/2023 at 10:49 am, EST. Coding Level of Care Code Est Pt Level 4 (66194) Diagnoses Grade 3 ankle sprain S93.409A
== END 2023-02-17 11:36 | disposition home or self-care (01) ==
PROVIDERS: PCP Internal Medicine; Visit Provider Physician Assistant
DX: S93.409A Sprain of unspecified ligament of unspecified ankle, initial encounter (principal)
CPT/HCPCS: 99214

== ENCOUNTER → 2023-02-17 10:47 | Outpatient (BNVA) | payer OTHER, SELFPAY | PROVIDERS: PCP Internal Medicine; Visit Provider Physician Assistant ==

== ENCOUNTER 2023-02-23 11:25 | Outpatient (REF) | payer OTHER, SELFPAY ==
--- NOTE | ~2023-02-23 | CT_ITS ---
EXAMINATION: CT ANKLE WITHOUT CONTRAST, LEFT CLINICAL INFORMATION: Ligament sprain. Attention to medial ankle. COMPARISON: Left ankle MRI dated 12/18/2022. TECHNIQUE: Contiguous axial CT images of the left ankle were obtained without contrast. Multiplanar reformats were provided and reviewed. This CT examination was performed using dose optimization techniques as appropriate, variously including the following: *Automated exposure control *Adjustment of mA and/or kV according to patient size (this includes techniques or standardized protocols for targeted exams where dose is matched to indication/reason for exam; i.e. extremities or head) *Use of iterative reconstruction technique. DOSE: 144 mGy-cm. FINDINGS: Along the medial talar dome, there is a focal subchondral defect measuring 0.7 x 0.3 cm (AP x ML) with minimal underlying subchondral cystic change. Findings are similar when compared to the recent MRI. No evidence of fragmentation or instability. No joint space narrowing or marginal osteophytes. Small os trigonum with minimal degenerative change. No acute fracture or dislocation. The ankle mortise is maintained. Tiny dorsal calcaneal enthesophyte. No significant joint effusion. No abnormal soft tissue mass or fluid collection. The visualized flexor and extensor tendons are grossly intact; however, evaluation is limited on CT examination. CT/CT ankle LT wo IV con IMPRESSION: 1. Focal subchondral defect along the medial talar dome measuring up to 0.7 cm with minimal underlying subchondral cystic change. Findings are similar when compared to the recent MRI. No evidence of fragmentation or instability. 2. Small os trigonum with minimal degenerative change. 3. Tiny dorsal calcaneal enthesophyte.
== END 2023-02-23 11:26 | disposition home or self-care (01) ==
LOC: HO.CT 11:25
PROVIDERS: PCP Internal Medicine; Visit Provider Physician Assistant
DX: S93.402A Sprain of unspecified ligament of left ankle, initial encounter (principal)
CPT/HCPCS: 73700

== ENCOUNTER 2023-03-03 09:05 | Outpatient (REF) | payer OTHER, SELFPAY ==
[2023-03-03 10:17] LABS: Influenza A PCR NEGATIVE (Negative); Influenza B PCR NEGATIVE (Negative); Resp Syncy Virus RNA Qual PCR NEGATIVE (Negative); SARS COV2 PCR INHOUSE NEGATIVE (Negative)
== END 2023-03-03 09:06 | disposition home or self-care (01) ==
LOC: HO.LAB 09:05
PROVIDERS: Visit Provider Internal Medicine
DX: Z11.52 Encounter for screening for COVID-19 (principal); Z20.822 Contact with and (suspected) exposure to COVID-19; R09.89 Other specified symptoms and signs involving the circulatory and respiratory systems
CPT/HCPCS: 0241U

== ENCOUNTER 2023-03-31 11:51 | Outpatient (AMB) | payer SELFPAY ==
--- NOTE | 2023-03-31 11:51 | MHC.PC.OV ---
Intake Visit Reasons: telehealth [place] Applier Required: No Accompanied by: Self / Same As Patient Allergies celecoxib [From Celebrex] Allergy (Intermediate, Verified 03/31/23 12:42) Itching metronidazole Allergy (Unknown, Verified 03/31/23 12:42) Rash sertraline [Zoloft] Allergy (Unknown, Verified 03/31/23 12:42) Itching sulfamethoxazole [From BACTRIM] Allergy (Unknown, Verified 03/31/23 12:42) Itching trimethoprim [From BACTRIM] Allergy (Unknown, Verified 03/31/23 12:42) Itching naproxen [From Naprosyn] Allergy (Verified 03/31/23 12:42) Itching venlafaxine [From Effexor] Allergy (Verified 03/31/23 12:42) Itching tramadol Adverse Reaction (Intermediate, Verified 03/31/23 12:42) Nausea alprazolam [From XANAX] Adverse Reaction (Mild, Verified 03/31/23 12:42) Confusion Sulfa (Sulfonamide Antibiotics) Adverse Reaction (Unknown, Verified 03/31/23 12:42) yeast infection Medication List - Last Reconciled 03/31/23 by Elier Olmstead MD [03/10 in heel lift As directed] amlodipine 5 mg PO DAILY 90 days diclofenac sodium 75 mg PO BID PRN 30 days diclofenac sodium 75 mg PO BID PRN ibuprofen 800 mg PO DAILY PRN ketorolac 10 mg PO TID PRN 5 days lidocaine 5% (Lidoderm) 1 patch topical DAILY PRN lorazepam 0.5 mg PO TID PRN 30 days off loading boot (Aircast off loading boot) As directed pyridoxine (vitamin B6) 100 mg PO DAILY 90 days semaglutide (Ozempic) 0.25 mg (0.368 mL) subcut QWEEK semaglutide (weight loss) (Wegovy) 0.25 mg (0.5 mL) subcut QWEEK tamsulosin (Flomax) 0.4 mg PO DAILY 2 weeks tizanidine 4 mg PO Q8H PRN 30 days Tobacco use date assessed: 03/31/23 Dental Screening Dental Screen Date: 03/31/23 Did you have a dental visit in the last 12 months?: Yes Did you have a dental problem in the last 6 months where you did not have access to dental care?: No Was dental information given to patient?: Patient has dentist HPI telehealth HPI Details Patient's follow-up visit / consultation today is done over the phone - this is a Telehealth visit Patient's current medications have been reviewed and verified with patient and / or caregiver / proxy and have been updated accordingly in the medication list Patient states that she has been experiencing increased anxiety and having panic attacks recently ever since her left after she was caught cheating with another man States that she went to the ER at [facility] last Tuesday for a panic attack and was given some IV Lorazepam to calm her down Is currently looking for something to help control her anxiety better States that she has not also been able to eat anything much lately and she would like to get a prescription for some multivitamins No other acute complaints or symptoms are noted at present [facility] Medical History HPV (human papilloma virus) infection Renal calculi Pyelonephritis Lumbar degenerative disc disease Horseshoe kidney Anxiety Obesity (BMI 30-39.9) Benign essential hypertension Gestational HTN Surgical History History of extraction of renal calculus Back pain with history of spinal surgery H/O wrist surgery Family History Father HIV (human immunodeficiency virus infection) Mother CVD (cardiovascular disease) Maternal Grandmother Breast cancer Diabetes Hypertension Maternal Grandfather Prostate cancer Paternal Grandmother CVD (cardiovascular disease) Paternal Grandfather Prostate cancer Sister In good health CHF (congestive heart failure) Son In good health Social History Household Members: Spouse Housing: Apartment Are you a primary day care center director to a significant other at home: No Do you presently have visiting nurse or other home services: No Alcohol intake: never Patient Tobacco Use Status: Never used Tobacco e-Cigarette/Vaping Use: Never Used Second Hand Smoke Exposure: No service: No (HPD) Current occupational status: employed Cognitive needs: No Hearing needs: No Vision needs: No Questionnaire PHQ-9 Over the last 2 weeks, how often have you been bothered by any of the following problems? 1. Little interest or pleasure in doing things: not at all 2. Feeling down, depressed, or hopeless: not at all 3. Trouble falling or staying asleep, or sleeping too much: not at all 4. Feeling tired or having little energy: not at all 5. Poor appetite or overeating: not at all 6. Feeling bad about yourself - or that you are a failure or have let yourself or your family down: not at all 7. Trouble concentrating on things, such as reading the newspaper or watching television: not at all 8. Moving or speaking so slowly that other people could have noticed. Or the opposite - being so fidgety or restless that you have been moving around a lot more than usual: not at all 9. Thoughts that you would be better off or of hurting yourself in some way: not at all Total score: 0 Depression Screening Interpretation: Negative Depression Screening Done: Yes 03885 - PHQ-9 Billing: Yes Source: Developed by Drs. Ole Ovalle, Jazzy Andrade, Sergio Lucio and colleagues, with an educational alex from [employer]. Thrive Questionnaire Date Thrive assessed: 03/31/23 I am a: Patient What is your living situation today?: I have a steady place to live Within the past 12 months, did the food you bought not last and you didn't have the money to get more?: Never true Within the past 12 months, did you worry whether your food would run out before you got money to buy more?: Never true Do you have trouble paying for medicines?: No Do you have trouble getting transportation to medical appointments?: No Do you have trouble paying your heating and electricity bill?: No Do you have trouble taking care of your child, family member or friend?: No Do you have trouble with day-to-day activities such as bathing, preparing meals, shopping, managing finances, etc.?: No Are you currently unemployed and looking for a job?: No Are you interested in more education?: No Please select the resources that you would like help with: None Currently or been in a relationship where the following occur: no concerns reported THRIVE Score: 0 AUDIT C Alcohol Use Questionnaire (AUDIT-C) 1. How often do you have a drink containing alcohol?: Monthly or less 2. How many drinks containing alcohol do you have on a typical day when you are drinking?: 1 or 2 3. How often do you have six or more drinks on one occasion?: Never Total Score: 1 Score Reviewed/Action Taken: Yes EMMY-7 AMB Questionnaire EMMY-7 Date EMMY - 7 assessed: 03/31/23 Feeling nervous, anxious, or on edge: 0 = Not at all Not being able to stop or control worryin = Not at all Worrying too much about different things: 0 = Not at all Trouble relaxin = Not at all Being so restless that it is hard to sit still: 0 = Not at all Becoming easily annoyed or irritable: 0 = Not at all Feeling afraid as if something awful might happen: 0 = Not at all Total EMMY-7 score (0-4 normal; 5-9 mild; 10-14 moderate; 15-21 severe): 0 Source: Developed by Drs. Ole Ovalle, Jazzy Andrade, Sergio Lucio and colleagues, with an educational alex from [employer]. Review of Systems Const Denies fatigue, Denies headache(s) and Reports poor appetite ENT Denies dizziness, Denies headache(s) and Denies sore throat Card Denies chest pain, Denies palpitations and Denies dyspnea Resp Denies cough and Denies dyspnea GI Denies abdominal pain, Denies constipation, Denies diarrhea, Denies nausea and Denies vomiting Neuro Denies dizziness and Denies headache(s) Psych Reports anxiety (increasing) and Reports panic attacks Endo Denies fatigue and Denies palpitations Physical exam (Primary Care) Vital Signs: Physical examination is not performed as visit / consultation today is done over the phone - Telehealth visit All physical findings indicated here, if present, are as per patient's and / or caregivers / proxy's report Tobacco/Smoking Status: Tobacco use Status Tobacco use date assessed 03/31/23 03/31/23 11:53 Patient Tobacco Use Status Never used Tobacco 03/31/23 11:53 e-Cigarette/Vaping Use Never Used 03/31/23 11:53 PHQ-9: PHQ-9 Score PHQ-9: Total score 0 03/31/23 12:49 Depression Screening Interpretation: Negative Thrive Assessment: Date of Thrive Assessment Date Thrive assessed 03/31/23 03/31/23 11:53 Currently or been in a relationship where the following occur: no concerns reported Telehealth Telehealth Location of provider rendering services: practice address Location of patient: address on file Patient Identification confirmed using: Name, : Yes Telehealth method: voice only Patient verbally consented to treatment: Yes Patient verbally consented to billing insurance company: Yes Patient informed of any privacy concerns related to visit: Yes Minutes spent on Phone/Video with Pt.: 15 Assessment and Plan Assessment & Plan (1) Anxiety: Code(s): F41.9 - Anxiety disorder, unspecified Plan: Continue Lorazepam 0.5 mg TID PRN Will start patient additionally on Bupropion ER 150 mg QD (2) Anorexia: Code(s): R63.0 - Anorexia Plan: Per request, will send in Rx for Multivitamins QD Plan Follow up in 1 month Medications: New bupropion HCl 150 mg PO QAM 30 days 30 tabs 2RF anxiety multivitamin (Multiple Vitamins tablet) 1 tab PO DAILY 90 days 90 tabs 3RF weight loss Coding Level of Care Code Tele Est Pt Level 3 (62565) Diagnoses Anxiety F41.9 Anorexia R63.0
== END 2023-03-31 14:14 | disposition home or self-care (01) ==
LOC: HO.HMGH 11:51
PROVIDERS: PCP Internal Medicine; Visit Provider Internal Medicine
DX: F41.9 Anxiety disorder, unspecified (principal); R63.0 Anorexia
CPT/HCPCS: 99213

== ENCOUNTER 2023-06-06 10:59 | Emergency (ER) | payer OTHER, SELFPAY ==
--- NOTE | ~2023-06-06 | CT_ITS ---
EXAMINATION: CT ABDOMEN AND PELVIS WITHOUT CONTRAST CLINICAL INFORMATION: Right flank pain with history of stones COMPARISON: Renal ultrasound 10/27/2022, CT abdomen pelvis 04/01/2022 TECHNIQUE: Multidetector volumetric imaging was performed from the superior aspect of the liver through the pubic symphysis. Sagittal and coronal reformatted images were obtained on the technologist's workstation. This CT examination was performed using dose optimization techniques as appropriate, variously including the following: *Automated exposure control *Adjustment of mA and/or kV according to patient size (this includes techniques or standardized protocols for targeted exams where dose is matched to indication/reason for exam; i.e. extremities or head) *Use of iterative reconstruction technique DLP: 586 mGy-cm FINDINGS: LUNG BASES: The visualized lung bases are unremarkable. Some minimal bibasilar atelectasis is present. LIVER, GALLBLADDER, AND BILIARY TREE: The liver is normal in size, shape, and attenuation. No focal hepatic lesion or biliary ductal dilatation is present. The gallbladder is unremarkable with no evidence of radiopaque gallstones, gallbladder wall thickening, or obvious pericholecystic inflammatory changes. PANCREAS: Unremarkable. SPLEEN: Unremarkable. ADRENAL GLANDS: Unremarkable. KIDNEYS AND URETERS: A horseshoe kidney is present. There is a nonobstructing 3 mm calculus seen in the lower pole of the left kidney. A 1 mm nonobstructing calculus is present near the upper pole of the right kidney. These calculi are new when compared to the 04/01/2022 study. No renal masses are seen. No hydronephrosis is detected. Multiple calcifications are seen in the region of the ureterovesical junctions but none can be said to be within the distal ureter and these appearances are unchanged when compared to 04/01/2022. BLADDER: Unremarkable. GASTROINTESTINAL TRACT: The small and large bowel are unremarkable. The appendix is unremarkable. ABDOMINAL WALL: No significant hernia is appreciated. LYMPH NODES: Normal. VASCULAR: Unremarkable. PELVIC VISCERA: The uterus and adnexa are unremarkable. OSSEOUS STRUCTURES: Mild degenerative changes are present most marked at L5-S1. No bony destructive lesions CT/CT abdomen pelvis wo IV con IMPRESSION: 1. Horseshoe kidney with nonobstructing renal calculi. No hydronephrosis is present. 2. A cause for the patient's right flank pain has not been found. 3. Other incidental findings as described above. Fleischner guidelines were followed.
[2023-06-06 11:05] VITALS: BP 125/67; PULSE 73; RESP 20; TEMP 36.7; O2SAT 98; BMI 29.6
--- NOTE | 2023-06-06 11:05 | ED_ITS ---
HPI - General Adult General Chief complaint: Back Pain/Injury Stated complaint: Kidney stone Time Seen by Provider: 06/06/23 12:03 Source: patient Mode of arrival: ambulatory History of Present Illness HPI narrative: 43-year-old female who presents with right flank pain, has a history of renal colic, reports mild nausea/vomiting and feeling lightheaded, this started this morning and patient describes dysuria. Related Data Previous Rx's Medication Instructions Recorded pyridoxine (vitamin B6) 100 mg 100 mg PO DAILY 90 days #90 tabs 01/15/22 tablet off loading boot (Aircast off #1 ea 09/21/22 loading boot) diclofenac sodium 75 mg 75 mg PO BID PRN pain #60 tabs 10/07/22 tablet,delayed release lidocaine 5 % topical patch 1 patch topical DAILY PRN Pain #30 10/26/22 (Lidoderm) ea ketorolac 10 mg tablet 10 mg PO TID PRN pain 5 days #15 10/27/22 tabs tamsulosin 0.4 mg capsule (Flomax) 0.4 mg PO DAILY 2 weeks #14 caps 10/27/22 amlodipine 5 mg tablet 5 mg PO DAILY 90 days #90 tabs 11/07/22 semaglutide (weight loss) 0.25 0.25 mg (0.5 mL) subcut QWEEK #2 mL 11/12/22 mg/0.5 mL subcutaneous pen injector (Rosemary) 1 03/10 in heel lift #1 ea 11/16/22 tizanidine 4 mg tablet 4 mg PO Q8H PRN muscle spasms 30 11/25/22 days #90 tabs ibuprofen 800 mg tablet 800 mg PO DAILY PRN pain #30 tabs 12/20/22 diclofenac sodium 75 mg 75 mg PO BID PRN pain 30 days #60 12/21/22 tablet,delayed release tabs bupropion HCl 150 mg 24 hr tablet, 150 mg PO QAM anxiety 30 days #30 03/31/23 extended release tabs multivitamin (Multiple Vitamins 1 tab PO DAILY weight loss 90 days 03/31/23 tablet) #90 tabs semaglutide 0.25 mg or 0.5 mg (2 0.25 mg (0.368 mL) subcut QWEEK #3 04/26/23 mg/3 mL) subcutaneous pen injector mL (Ozempic) lorazepam 0.5 mg tablet 0.5 mg PO TID PRN anxiety 30 days 05/23/23 #90 tabs Allergies Allergy/AdvReac Type Severity Reaction Status Date / Time celecoxib [From Celebrex] Allergy Intermediate Itching Verified 03/31/23 12:42 metronidazole Allergy Unknown Rash Verified 03/31/23 12:42 sertraline [Zoloft] Allergy Unknown Itching Verified 03/31/23 12:42 sulfamethoxazole Allergy Unknown Itching Verified 03/31/23 12:42 [From BACTRIM] trimethoprim [From BACTRIM] Allergy Unknown Itching Verified 03/31/23 12:42 naproxen [From Naprosyn] Allergy Itching Verified 03/31/23 12:42 venlafaxine [From Effexor] Allergy Itching Verified 03/31/23 12:42 tramadol AdvReac Intermediate Nausea Verified 03/31/23 12:42 alprazolam [From XANAX] AdvReac Mild Confusion Verified 03/31/23 12:42 Sulfa (Sulfonamide AdvReac Unknown yeast Verified 03/31/23 12:42 Antibiotics) infection Review of Systems 2 Review of Systems: Pertinent positives and negatives as stated in HPI [facility] Past Medical History Source: nursing notes reviewed Medical History HPV (human papilloma virus) infection Renal calculi Pyelonephritis Lumbar degenerative disc disease Horseshoe kidney Anxiety Obesity (BMI 30-39.9) Benign essential hypertension Gestational HTN Surgical History History of extraction of renal calculus Back pain with history of spinal surgery H/O wrist surgery Family History Family History Father HIV (human immunodeficiency virus infection) Mother CVD (cardiovascular disease) Maternal Grandmother Breast cancer Diabetes Hypertension Maternal Grandfather Prostate cancer Paternal Grandmother CVD (cardiovascular disease) Paternal Grandfather Prostate cancer Sister In good health CHF (congestive heart failure) Son In good health Social History Social History Household Members: Spouse Housing: Apartment Are you a primary care transport nurse to a significant other at home: No Do you presently have visiting nurse or other home services: No Alcohol intake: never Patient Tobacco Use Status: Never used Tobacco Smoked in Last 30 Days: No e-Cigarette/Vaping Use: Never Used Second Hand Smoke Exposure: No Use of substances other than those prescribed or required for medical reasons: No Advance Directives: No Advance Directives Information Provided: No service: No (HPD) Current occupational status: employed Cognitive needs: No Hearing needs: No Vision needs: No Physical Exam ED Vital Signs: Vital Signs - 24 hr 06/06/23 11:05 06/06/23 11:27 06/06/23 11:52 Temperature 98.1 F Pulse Rate 73 73 66 Respiratory Rate 20 17 18 Blood Pressure 125/67 130/82 126/73 Pulse Oximetry 98 99 98 Oxygen Delivery Method Room Air Room Air BMI result Body Mass Index 29.6 VITAL SIGNS: Reviewed. GENERAL: Well developed, well nourished, in no acute distress. HEAD: Normocephalic/atraumatic EYES: PERRLA, EOMI EARS: Ext canals without abnormality, TMs non-bulging and non-erythematous NOSE: Nares patent bilateral OROPHARYNX: no oral lesions noted, posterior pharynx clear and non-erythematous without noted tonsillar enlargement/erythema/exudates NECK: Supple, no adenopathy LUNGS: Normal breath sounds. No adventitious sounds or accessory muscle use. SpO2<98> CARDIOVASCULAR: Regular rate and rhythm without noted murmurs ABDOMEN: Soft, non-tender, no Juárez's/McBurney's, no CVA tenderness, non- distended with bowel sounds. MUSCULOSKELETAL: No tenderness, deformities, or effusions noted on gross inspection. EXTREMITIES: No cyanosis, clubbing or edema. SKIN: Inspection of the skin reveals no rashes NEUROLOGIC: Alert and oriented x 4. Strength and sensation to light touch were grossly intact x 4. Course Course Course Narrative: This is a rapid medical exam: Additional HPI, ROS, PE not included below will be deferred to primary provider. Patient is a 43-year-old female with history of recurrent kidney stones, horseshoe kidney presenting to the ED with complaint of acute onset R flank pain consistent with previous kidney stones. Also complains of nausea/vomiting. Plan: UA, labs, CT Medications Administered Discontinued Medications Generic Name Dose Route Start Last Admin Trade Name Freq PRN Reason Stop Dose Admin Hydromorphone HCl 1 mg 06/06/23 11:10 06/06/23 11:24 Hydromorphone Hcl 1 Mg/Ml Syringe IVPUSH 06/06/23 11:11 1 mg ONCE ONE Administration Protocol Sodium Chloride 1,000 mls @ 999 mls/hr 06/06/23 11:15 06/06/23 11:21 Ns IV 06/06/23 12:15 999 mls/hr .Q1H1M TONA Administration Ondansetron HCl 4 mg 06/06/23 11:10 06/06/23 11:22 Ondansetron Hcl 4 Mg/2 Ml Vial IVPUSH 06/06/23 11:11 4 mg ONCE ONE Administration Medical Decision Making Medical Decision Making [facility] Narrative: 43-year-old female with history and clinical presentation, DDX: Renal colic, musculoskeletal, urinary tract infection, pyelonephritis Patient received IV fluids, antiemetics and 1 mg of Dilaudid. I reviewed all investigations and hematologic indices are negative for leukocytosis/left shift/anemia/thrombocytopenia. Chemistry indices are grossly within normal limits there are no noted derangements and beta hCG is undetectable. Urinalysis negative for UTI or hematuria. CT scan does not demonstrate appendicitis/cholecystitis/renal colic/hydronephrosis. My interpretation is patient may have had an episode of musculoskeletal pain or possibly passed a stone however there are no findings on CT scan to suggest recent passage of the stone. She is otherwise discharged home. Differential Diagnosis Differential Diagnoses: The differential diagnosis associated with the presentation includes Please see the discussion above Admission/Observation Consideration of admission/observation: Escalation of care including admission/observation considered Please see the discussion above Lab Data [facility] Lab Attestation statement: I reviewed the patient's lab results. Please see the discussion above 06/06/23 11:19 06/06/23 11:19 Labs: Lab Results 06/06/23 06/06/23 Range/Units 11:19 12:04 WBC 8.0 (4.8-10.8) X10*3/uL RBC 4.64 (4.20-5.50) X10*6/uL Hgb 14.3 (12.0-16.0) g/dl Hct 42.0 (37.0-47.0) % MCV 90.5 (80.0-98.0) fL MCH 30.8 (27.0-33.0) pg MCHC 34.0 (31.0-35.0) g/dl RDW 11.9 (11.0-16.0) % Plt Count 310 (160-400) X10*3/uL MPV 10.2 (9.4-12.3) fL Immature Gran % (Auto) 0.1 (0.0-0.4) % Neut % (Auto) 63.7 (45-73) % Lymph % (Auto) 24.5 (20-40) % [place] % (Auto) 9.0 (2-11) % Eos % (Auto) 2.1 (0-4) % Baso % (Auto) 0.6 (0-2) % Lymph # (Auto) 2.0 (1.2-4.9) X10*3/uL [place] # (Auto) 0.7 (0.1-1.2) X10*3/uL Eos # (Auto) 0.2 (0.0-0.4) X10*3/uL Baso # (Auto) 0.1 (0.0-0.2) X10*3/uL Abs Immat Gran (auto) 0.01 (0.00-0.03) X10*3/uL Absolute Neuts (auto) 5.1 (2.0-8.3) x10*3/uL Absolute Nucleated RBC 0.000 (0.0-0.012) X10*3/uL Nucleated RBC % (auto) 0.0 (0.0-0.2) /100WBC Sodium 142 (135-145) mmol/L Potassium 3.5 (3.3-5.1) mmol/L Chloride 109 H (96-108) mmol/L Carbon Dioxide 28 (22-29) mmol/L Anion Gap 9 L (12-20) BUN 9 (9-16) mg/dL Creatinine 0.75 (0.5-1.4) mg/dL Estim Creat Clear Calc 99.4 Estimated GFR > 60 Random Glucose 95 (60-115) mg/dL Calcium 8.9 (8.4-10.2) mg/dL Total Bilirubin 0.6 (0.0-1.0) mg/dL AST 16 (5-31) U/L ALT 11 (0-31) U/L Alkaline Phosphatase 58 (39-117) U/L Total Protein 7.5 (6.5-8.0) g/dL Albumin 4.1 (3.5-5.0) g/dL Beta HCG, Quant < 2 mIU/mL Urine Color Yellow Urine Appearance Clear Urine pH 7.0 (5.0-9.0) Ur Specific [place] <= 1.005 (1.005-1.025) Urine Protein Negative (Neg-Trace) mg/dL Urine Glucose (UA) Negative (Negative) mg/dL Urine Ketones Negative (Negative) mg/dL Urine Blood Negative (Negative) Urine Nitrite Negative (Negative) Ur Leukocyte Esterase Trace H (Negative) Urine RBC 0-2 (0-2) /HPF Urine WBC 0-5 (0-5) /HPF Ur Squamous Epith Cells 3-5 (0-2) /HPF Urine Bacteria None Seen (None Seen) Hyaline Casts 0-2 (0-2) /LPF Radiology Impression Discussion of test interpretation with radiology: I have reviewed the radiologist's reading. Radiologist Impression: Please see the discussion above External Record Review External record reviewed: Outpatient record, Prior outpatient labs and Prior outpatient radiology Critical Care Time Critical Care Time Critical Care Time: Yes Total Critical Care Time: 30 Attestation: I personally attest to this time spent taking care of the patient. Discharge Plan Discharge Clinical Impression: Right flank pain Patient Disposition: Home, Self-Care Instructions: Flank Pain (ED) Additional Instructions: 1. Resume all home medications as prescribed. 2. Recommend that you increase the amount of water intake and use [id number] analgesics for any residual discomfort. No evidence kidney stone was identified today. 3. Follow-up with your primary care doctor. Return to the ER for any worsening symptoms. Prescriptions: No Action (DME) Aircast off loading boot Kit See Rx Instructions .Route Qty: 1 0RF Rx Instructions: As directed lidocaine [Lidoderm] 5 % adhesive patch,medicated 1 patch topical DAILY PRN (Reason: Pain) Qty: 30 1RF Rx Instructions: leave on most painful area for up to 12 hrs amlodipine 5 mg tablet 5 mg PO DAILY 90 Days Qty: 90 1RF Wegovy 0.25 mg/0.5 mL pen injector 0.25 mg subcut QWEEK Qty: 2 1RF Rx Instructions: administer weeks 1 through 4 of therapy Ozempic 0.25 mg or 0.5 mg (2 mg/3 mL) pen injector 0.25 mg subcut QWEEK Qty: 3 0RF Rx Instructions: for 4 weeks lorazepam 0.5 mg tablet 0.5 mg PO TID PRN (Reason: anxiety) 30 Days Qty: 90 0RF ketorolac 10 mg tablet 10 mg PO TID PRN (Reason: pain) 5 Days Qty: 15 0RF tamsulosin [Flomax] 0.4 mg capsule 0.4 mg PO DAILY 14 Days Qty: 14 0RF tizanidine 4 mg tablet 4 mg PO Q8H PRN (Reason: muscle spasms) 30 Days Qty: 90 0RF ibuprofen 800 mg tablet 800 mg PO DAILY PRN (Reason: pain) Qty: 30 2RF Rx Instructions: Take with food bupropion HCl 150 mg tablet extended release 24 hr 150 mg PO QAM 30 Days Qty: 30 2RF multivitamin [Multiple Vitamins] Tablet 1 tab PO DAILY 90 Days Qty: 90 3RF pyridoxine (vitamin B6) 100 mg tablet 100 mg PO DAILY 90 Days Qty: 90 3RF diclofenac sodium 75 mg tablet,delayed release (DR/EC) 75 mg PO BID PRN (Reason: pain) Qty: 60 0RF (DME) 1 1/ in heel lift See Rx Instructions .ROUTE .MEDSUPPLY Qty: 1 0RF Rx Instructions: As directed diclofenac sodium 75 mg tablet,delayed release (DR/EC) 75 mg PO BID PRN (Reason: pain) 30 Days Qty: 60 0RF Referrals: Elier Olmsteda MD [Primary Care Provider] -
[2023-06-06] MEDS: 0.9 % Sodium Chloride 1,000 ML 999 ML IV (11:21)
[2023-06-06 11:22] LABS: MANUAL DIFF FLAG NO
[2023-06-06] MEDS: ondansetron HCL 4 MG/2 ML VIAL IVPUSH (11:22)
[2023-06-06 11:23] LABS: Basophils Absolute Auto 0.1 X10*3/uL (0.0-0.2); Basophils Percent Auto 0.6 % (0-2); Eosinophils Absolute Auto 0.2 X10*3/uL (0.0-0.4); Eosinophils Percent Auto 2.1 % (0-4); Hemoglobin 14.3 g/dl (12.0-16.0); Imm Gran Abs Auto 0.01 X10*3/uL (0.00-0.03); Imm Gran Pct Auto 0.1 % (0.0-0.4); Lymphocytes Percent Auto 24.5 % (20-40); Mean Corpuscular Hemoglobin 30.8 pg (27.0-33.0); Mean Corpuscular Volume 90.5 fL (80.0-98.0); Mean Platelet Volume 10.2 fL (9.4-12.3); Monocytes Absolute Auto 0.7 X10*3/uL (0.1-1.2); Neutrophils Absolute Auto 5.1 x10*3/uL (2.0-8.3); Neutrophils Percent Auto 63.7 % (45-73); Platelet Count 310 X10*3/uL (160-400); Red Blood Count 4.64 X10*6/uL (4.20-5.50); Red Cell Distribution Width 11.9 % (11.0-16.0)
[2023-06-06] MEDS: HYDROmorphone HCl 1 MG/ML SYRINGE IVPUSH (11:24)
[2023-06-06 11:27] VITALS: BP 130/82; PULSE 73; RESP 17; O2SAT 99
[2023-06-06 11:48] LABS: Alanine Aminotransferase 11 U/L (0-31); Albumin Level 4.1 g/dL (3.5-5.0); Alkaline Phosphatase 58 U/L (39-117); Anion Gap 9 (12-20); Aspartate Amino Transferase 16 U/L (5-31); Bilirubin Total 0.6 mg/dL (0.0-1.0); Blood Urea Nitrogen 9 mg/dL (9-16); Calcium 8.9 mg/dL (8.4-10.2); Carbon Dioxide 28 mmol/L (22-29); Chloride 109 mmol/L (96-108); Creatinine Clr Calc Pharmacy 99.4; Estimated Glomerular Filt Rate > 60; Glucose Random 95 mg/dL (60-115); HCG Quantitative < 2 mIU/mL; Potassium 3.5 mmol/L (3.3-5.1); Sodium 142 mmol/L (135-145); Total Protein 7.5 g/dL (6.5-8.0)
[2023-06-06 11:52] VITALS: BP 126/73; PULSE 66; RESP 18; O2SAT 98
[2023-06-06 12:17] LABS: Appearance Urine Clear; Color Urine Yellow; Glucose Urine UA Negative (Negative); Leukocyte Esterase Urine Trace (Negative); Nitrite Urine Negative (Negative); Specific Gravity - Urine <= 1.005 (1.005-1.025); UMIC TRIGGER UACC YES; Urine Blood Negative (Negative); Urine Ketones Negative (Negative); Urine Protein Negative (Neg-Trace)
[2023-06-06 12:20] LABS: Bacteria Urine None Seen (None Seen); Hyaline Casts Urine 0-2 /LPF (0-2); RBC Urine 0-2 /HPF (0-2); WBC Urine 0-5 /HPF (0-5)
[2023-06-06 14:23] VITALS: BP 118/77; PULSE 65; RESP 16; TEMP 36.6; O2SAT 99
== END 2023-06-06 14:24 | disposition home or self-care (01) ==
PROVIDERS: Registered Nurse Emergency; Emergency Provider Student in an Organized Health Care Education/Training Program; PCP Internal Medicine
DX: R10.9 Unspecified abdominal pain (principal); R11.2 Nausea with vomiting, unspecified; R42 Dizziness and giddiness; Z79.899 Other long term (current) drug therapy
CPT/HCPCS: 36415; 74176; 80053; 81001; 84702; 85025; 96374; 96375; 99284; J1170; J2405

== ENCOUNTER 2023-06-11 10:02 | Outpatient (REF) | payer OTHER, SELFPAY ==
--- NOTE | ~2023-06-11 | MM_ITS ---
EXAMINATION: MM SCREENING DIGITAL BREAST TOMOSYNTHESIS, BILATERAL CLINICAL INFORMATION: Screening. Asymptomatic. COMPARISON: Mammography: This study is compared with prior exams dating back to 2019. TECHNIQUE: Digital breast tomosynthesis is performed in both the craniocaudal and mediolateral oblique views along with computer-aided detection (CAD). Synthesized 2D images are generated from the tomosynthesis. FINDINGS: The breasts are heterogeneously dense, which may obscure small masses (ACR BI-RADS breast composition Category c). There are no significant masses, abnormal calcifications, or other abnormalities. The patient has bilateral nipple rings. Few, benign calcifications are present in the left breast. MM/MM tomosynthesis screening BI IMPRESSION: No mammographic evidence of malignancy. ASSESSMENT: BI-RADS BI-RADS 2 - Benign Findings RECOMMENDATION: Routine annual mammography screening. 1 year F/U This examination should not preclude the clinical evaluation of a suspicious palpable abnormality. This patient's information was entered into a reminder system with a target due date for their next mammogram.
== END 2023-06-11 10:03 | disposition home or self-care (01) ==
LOC: HO.MAMMO 10:02
PROVIDERS: PCP Internal Medicine; Visit Provider Internal Medicine
DX: Z12.31 Encounter for screening mammogram for malignant neoplasm of breast (principal)
CPT/HCPCS: 77063; 77067

== ENCOUNTER → 2023-06-11 10:15 | Outpatient (BNV) | payer OTHER, SELFPAY | PROVIDERS: PCP Internal Medicine; Visit Provider Radiology Diagnostic Radiology | DX: Z12.31 Encounter for screening mammogram for malignant neoplasm of breast (principal) | CPT/HCPCS: 77063; 77067 ==

== ENCOUNTER 2023-06-16 08:51 | Outpatient (REF) | payer OTHER, SELFPAY ==
--- NOTE | ~2023-06-16 | US_ITS ---
EXAMINATION: US RETROPERITONEAL LIMITED (RENAL ONLY) CLINICAL INFORMATION: Calculus of kidney. COMPARISON: CT abdomen and pelvis 06/06/2023. Ultrasound kidneys and bladder 10/27/2022. Renal ultrasound 04/14/2022. X-ray abdomen KUB 06/25/2020. TECHNIQUE: Real-time imaging of the kidneys. FINDINGS: Horseshoe kidney RIGHT KIDNEY: 10.1 x 4.3 x 3.7 cm (SAG x AP x TRV). The kidney is normal in size, contour, and echogenicity. Renal cortical thickness is normal. No focal parenchymal lesions or hydronephrosis. 2 mm stone in the mid to upper pole. LEFT KIDNEY: 8.0 x 3.1 x 3.0 cm (SAG x AP x TRV). The kidney is normal in size, contour, and echogenicity. Renal cortical thickness is normal. No focal parenchymal lesions or hydronephrosis. 3 mm stone in the lower pole. US/US renal BI IMPRESSION: Horseshoe kidney. Small bilateral renal stones.
== END 2023-06-16 08:52 | disposition home or self-care (01) ==
LOC: HO.US 08:51
PROVIDERS: PCP Internal Medicine; Visit Provider Urology
DX: N20.0 Calculus of kidney (principal)
CPT/HCPCS: 76775

== ENCOUNTER 2023-06-21 08:36 | Outpatient (AMB) | payer OTHER, SELFPAY ==
--- NOTE | 2023-06-21 08:40 | MHC.OFFVIS ---
Intake Intake Visit Reasons: 6M US(set)Confirmed Intake Note: Patient is Present for Telephone Follow Up Urology Medication: Vitamin B6, Tamsulosin Antibiotic Allergies: Sulfa, Trimethroprim, Bactrim Blood Thinners: None Pharmacy: [facility] Allergies celecoxib [From Celebrex] Allergy (Intermediate, Verified 06/21/23 08:41) Itching metronidazole Allergy (Unknown, Verified 06/21/23 08:41) Rash sertraline [Zoloft] Allergy (Unknown, Verified 06/21/23 08:41) Itching sulfamethoxazole [From BACTRIM] Allergy (Unknown, Verified 06/21/23 08:41) Itching trimethoprim [From BACTRIM] Allergy (Unknown, Verified 06/21/23 08:41) Itching naproxen [From Naprosyn] Allergy (Verified 06/21/23 08:41) Itching venlafaxine [From Effexor] Allergy (Verified 06/21/23 08:41) Itching tramadol Adverse Reaction (Intermediate, Verified 06/21/23 08:41) Nausea alprazolam [From XANAX] Adverse Reaction (Mild, Verified 06/21/23 08:41) Confusion Sulfa (Sulfonamide Antibiotics) Adverse Reaction (Unknown, Verified 06/21/23 08:41) yeast infection Medication List - Last Reconciled 06/21/23 by Jose Alfredo Addison MD [1 03/10 in heel lift As directed] amlodipine 5 mg PO DAILY 90 days bupropion HCl XL 150 mg PO QAM 30 days diclofenac sodium 75 mg PO BID PRN 30 days diclofenac sodium 75 mg PO BID PRN ibuprofen 800 mg PO DAILY PRN ketorolac 10 mg PO TID PRN 5 days lidocaine 5% (Lidoderm) 1 patch topical DAILY PRN lorazepam 0.5 mg PO TID PRN 30 days multivitamin (Multiple Vitamins tablet) 1 tab PO DAILY 90 days off loading boot (Aircast off loading boot) As directed pyridoxine (vitamin B6) 100 mg PO DAILY 90 days semaglutide (Ozempic) 0.25 mg (0.368 mL) subcut QWEEK semaglutide (weight loss) (Wegovy) 0.25 mg (0.5 mL) subcut QWEEK tamsulosin (Flomax) 0.4 mg PO DAILY 2 weeks tizanidine 4 mg PO Q8H PRN 30 days HPI HPI Comments History of Present Illness Details [place] very pleasant female. She is a patient of Dr. Olmstead. She is seen for following urologic conditions - recurrent nephrolithiasis Telemedicine evaluation 15 minute consultation DoxTraackr randy Video Had recent ER visit CT with no evidence of stone in the ureter Has 2 mm stone bilateral Otherwise doing well Has lost 25 lb Nephrolithiasis Here following stone procedure - horseshoe kidney Has had previous stones Stone analysis 10/25 mixed calcium oxalate with calcium apaptite Prior interventions - 10/25 right-sided distal ureteroscopy laser lithotripsy stent placement - 06/25 right ESWL - 11/26 right ureteroscopy laser lithotripsy Imaging - 06/25 renal ultrasound with 5 mm stone on right side - 11/25 CT scan the distal right ureteric stone with mild hydronephrosis. No other stones seen - 01/25 renal ultrasound question of 3 mm stone on right - 08/26 renal ultrasound 6 mm right mid pole - 10/27 renal US mild fullness right side - 06/28 renal ultrasound question of small stone 2 mm bilateral Stone composition - 10/25 mixed calcium oxalate with calcium phosphate - 11/26 calcium oxalate with calcium phosphate Litholink - 01/26 good volume, high citrate - high calcium, high sodium Therapeutic plan - encourage fluids - interval surveillance [facility] Medical History HPV (human papilloma virus) infection Renal calculi Pyelonephritis Lumbar degenerative disc disease Horseshoe kidney Anxiety Obesity (BMI 30-39.9) Benign essential hypertension Gestational HTN Surgical History History of extraction of renal calculus Back pain with history of spinal surgery H/O wrist surgery Family History Father HIV (human immunodeficiency virus infection) Mother CVD (cardiovascular disease) Maternal Grandmother Breast cancer Diabetes Hypertension Maternal Grandfather Prostate cancer Paternal Grandmother CVD (cardiovascular disease) Paternal Grandfather Prostate cancer Sister In good health CHF (congestive heart failure) Son In good health Social History Household Members: Spouse Housing: Apartment Are you a primary emergency care tech to a significant other at home: No Do you presently have visiting nurse or other home services: No Alcohol intake: never Patient Tobacco Use Status: Never used Tobacco e-Cigarette/Vaping Use: Never Used Second Hand Smoke Exposure: No service: No (HPD) Current occupational status: employed Cognitive needs: No Hearing needs: No Vision needs: No Review of Systems Const All systems reviewed & are unremarkable except as noted in HPI and below Reports no additional complaints Resp Reports no additional complaints GI Reports no additional complaints Reports as per HPI Musc Reports no additional complaints Physical Exam Telemedicine evaluation Appropriate responses Regular breathing rate and rhythm HEENT Head: Yes normal to inspection Ears: hearing grossly normal bilaterally Eyes General: appearance normal, both eyes and all related structures Neck Neck: Yes normal visual inspection Chest Chest palpation & inspection: normal inspection of the chest Resp Effort & Inspection: normal respiratory effort and able to speak in complete sentences Assessment & Plan Assessment & Plan (1) Recurrent kidney stones: Comment: Calcium oxalate and calcium phosphate Code(s): N20.0 - Calculus of kidney Plan Six-month follow-up renal ultrasound Orders: Orders US renal BI 6 Months N20.0 - Calculus of kidney Medications: Changed From pyridoxine (vitamin B6) 100 mg PO DAILY 90 days 90 tabs 3RF N20.0 - Calculus of kidney To pyridoxine (vitamin B6) 50 mg PO DAILY 90 days 90 tabs 3RF N20.0 - Calculus of kidney Patient Instructions: Imaging studies, laboratory and physical exam results were discussed and reviewed in detail. No major barriers to patient understanding were identified. An opportunity to ask questions regarding the treatment plan was provided. All questions were answered. The patient expressed understanding and agreement with the above treatment plan. The patient is aware they should contact our office by phone for worsening of their current condition or the appearance of new urologic symptoms. Compliance is encouraged with any medications and followup testing that is ordered. It is a privilege to participate in the urologic care of your patient. If you have any questions or concerns regarding treatment for the above conditions, or other urologic issues, please do not hesitate to contact me. The office telephone contact is [phone]. This note is constructed using voice recognition software. While every effort has been made to ensure accuracy credit coordinator errors may have been included. Yours sincerely, Dr Jose Alfredo Addison MD, [facility] - Urology Providers of Expert, Compassionate Care for the Genitourinary System Telehealth Telehealth Location of provider rendering services: practice address Location of patient: address on file Patient Identification confirmed using: Name, : Yes Telehealth method: video Patient verbally consented to treatment: Yes Patient verbally consented to billing insurance company: Yes Patient informed of any privacy concerns related to visit: Yes Minutes spent on Phone/Video with Pt.: 15 Coding Level of Care Code Tele Est Pt Level 3 (07350) Diagnoses Recurrent kidney stones N20.0
== END 2023-06-21 09:23 | disposition home or self-care (01) ==
LOC: HO.HUSH 08:36
PROVIDERS: PCP Internal Medicine; Visit Provider Urology
DX: N20.0 Calculus of kidney (principal)
CPT/HCPCS: 99213

== ENCOUNTER → 2023-06-21 08:36 | Outpatient (BNVA) | payer OTHER, SELFPAY | PROVIDERS: PCP Internal Medicine; Visit Provider Urology ==

== ENCOUNTER 2023-06-23 07:57 | Emergency (ER) | payer OTHER, SELFPAY ==
--- NOTE | ~2023-06-23 | US_ITS ---
EXAMINATION: US RETROPERITONEAL COMPLETE (RENAL) CLINICAL INFORMATION: History of stones and horseshoe kidney. COMPARISON: Renal ultrasound from 06/16/2023, 10/27/[address] abdomen and pelvis from 06/06/2023 TECHNIQUE: Real-time imaging of the kidneys and bladder. FINDINGS: There is horseshoe kidney. RIGHT KIDNEY: 11.5 x 4.5 x 4.7 cm (SAG x AP x TRV). The kidney is normal in size, contour, and echogenicity. Renal cortical thickness is normal. No focal parenchymal lesions. No hydronephrosis. There is upper pole 0.2 x 0.2 x 0.2 cm nonobstructing stone Evaluation of left side of the kidneys limited due to bowel gas distribution LEFT KIDNEY: 8.8 x 4.2 x 3.2 cm (SAG x AP x TRV). The kidney is normal in size, contour, and echogenicity. Renal cortical thickness is normal. No focal parenchymal lesions. No hydronephrosis. There is nonobstructing 0.3 x 0.1 x 0.2 cm stone BLADDER: Well distended with linear septation not seen on the previous studies. Bilateral ureteral jets are demonstrated. Prevoid bladder volume is 145 mL. Postvoid bladder volume is 10 mL. US/US retroperitoneal comp IMPRESSION: Bilateral nonobstructing calculi. Horseshoe kidney Thin septation in otherwise unremarkable urinary bladder.
[2023-06-23 07:58] VITALS: BP 147/94; PULSE 77; RESP 18; TEMP 37.2; O2SAT 100; BMI 28.4
--- NOTE | 2023-06-23 08:26 | ED_ITS ---
HPI - Abdominal Pain General Chief Complaint: General Medical Stated Complaint: back pain Time Seen by Provider: 06/23/23 08:15 Source: patient and old records reviewed Mode of arrival: ambulatory Limitations: no limitations History of Present Illness HPI narrative: 43 yo female with PMH of kidney stones and horseshoe kidney, UTI, anxiety, HTN here with c/o known kidney stones presents with abrupt onset L flank pain and nausea starting at 5am. No fevers. Has mild nausea. MD elicited complaint: abdominal pain Pertinent past history: kidney stones Onset (ago): hour(s) (5am) Pain Consistency: constant Location: L flank Severity: severe Quality: stabbing Radiation: L flank Migration to: no migration Exacerbating factors: nothing Relieving factors: nothing Context: history of similar episodes Associated symptoms: nausea Related Data Previous Rx's ?Medication ?Instructions ?Recorded off loading boot (Aircast off #1 ea 09/21/22 loading boot) diclofenac sodium 75 mg 75 mg PO BID PRN pain #60 tabs 10/07/22 tablet,delayed release lidocaine 5 % topical patch 1 patch topical DAILY PRN Pain #30 10/26/22 (Lidoderm) ea ketorolac 10 mg tablet 10 mg PO TID PRN pain 5 days #15 10/27/22 tabs tamsulosin 0.4 mg capsule (Flomax) 0.4 mg PO DAILY 2 weeks #14 caps 10/27/22 amlodipine 5 mg tablet 5 mg PO DAILY 90 days #90 tabs 11/07/22 semaglutide (weight loss) 0.25 0.25 mg (0.5 mL) subcut QWEEK #2 mL 11/12/22 mg/0.5 mL subcutaneous pen injector (Wegovy) 1 03/10 in heel lift #1 ea 11/16/22 tizanidine 4 mg tablet 4 mg PO Q8H PRN muscle spasms 30 11/25/22 days #90 tabs ibuprofen 800 mg tablet 800 mg PO DAILY PRN pain #30 tabs 12/20/22 diclofenac sodium 75 mg 75 mg PO BID PRN pain 30 days #60 12/21/22 tablet,delayed release tabs bupropion HCl 150 mg 24 hr tablet, 150 mg PO QAM anxiety 30 days #30 03/31/23 extended release tabs multivitamin (Multiple Vitamins 1 tab PO DAILY weight loss 90 days 03/31/23 tablet) #90 tabs semaglutide 0.25 mg or 0.5 mg (2 0.25 mg (0.368 mL) subcut QWEEK #3 04/26/23 mg/3 mL) subcutaneous pen injector mL (Ozempic) lorazepam 0.5 mg tablet 0.5 mg PO TID PRN anxiety 30 days 05/23/23 #90 tabs pyridoxine (vitamin B6) 50 mg 50 mg PO DAILY 90 days #90 tabs 06/21/23 tablet cefuroxime axetil 250 mg tablet 250 mg PO BID 7 days #14 tabs 06/23/23 morphine 15 mg immediate release 15 mg PO Q6H PRN pain #14 tabs 06/23/23 tablet ondansetron 4 mg disintegrating 4 mg PO Q8H PRN nausea and 06/23/23 tablet vomiting #20 tabs Allergies Allergy/AdvReac Type Severity Reaction Status Date / Time celecoxib [From Celebrex] Allergy Intermediate Itching Verified 06/23/23 08:02 metronidazole Allergy Unknown Rash Verified 06/23/23 08:02 sertraline [Zoloft] Allergy Unknown Itching Verified 06/23/23 08:02 sulfamethoxazole Allergy Unknown Itching Verified 06/23/23 08:02 [From BACTRIM] trimethoprim [From BACTRIM] Allergy Unknown Itching Verified 06/23/23 08:02 naproxen [From Naprosyn] Allergy Itching Verified 06/23/23 08:02 venlafaxine [From Effexor] Allergy Itching Verified 06/23/23 08:02 tramadol AdvReac Intermediate Nausea Verified 06/23/23 08:02 alprazolam [From XANAX] AdvReac Mild Confusion Verified 06/23/23 08:02 Sulfa (Sulfonamide AdvReac Unknown yeast Verified 06/23/23 08:02 Antibiotics) infection Review of Systems Review of Systems Constitutional : No Weight loss, No Fever, No Chills ENT/Mouth : No sore throat, No Rhinorrhea Eyes: No Swelling, No Redness Cardiovascular : No Chest Pain, No SOB, No Edema Respiratory : No Cough, No Sputum, No Wheezing Gastrointestinal : Positive Nausea, no Vomiting, no Diarrhea, positive abdominal Pain, No Hematochezia, No Melena Genitourinary : No Dysuria, No Urinary Frequency, No Hematuria, No Urgency Musculoskeletal : No joint pain, No Myalgias, No Joint Swelling Skin : No Skin Lesions, No rash Neuro : No Weakness, No Numbness, No Dizziness, No Headache Psych : No Anxiety/Panic, No Depression All other systems reviewed and are negative. [facility] Past Medical History Attestation statement: The following information was validated with the patient. Source: old records reviewed Medical History HPV (human papilloma virus) infection Renal calculi Pyelonephritis Lumbar degenerative disc disease Horseshoe kidney Anxiety Obesity (BMI 30-39.9) Benign essential hypertension Gestational HTN Surgical History History of extraction of renal calculus Back pain with history of spinal surgery H/O wrist surgery Family History Family History Father HIV (human immunodeficiency virus infection) Mother CVD (cardiovascular disease) Maternal Grandmother Breast cancer Diabetes Hypertension Maternal Grandfather Prostate cancer Paternal Grandmother CVD (cardiovascular disease) Paternal Grandfather Prostate cancer Sister In good health CHF (congestive heart failure) Son In good health Social History Social History Household Members: Spouse Housing: Apartment Are you a primary care aid to a significant other at home: No Do you presently have visiting nurse or other home services: No Alcohol intake: never Patient Tobacco Use Status: Never used Tobacco Smoked in Last 30 Days: No e-Cigarette/Vaping Use: Never Used Second Hand Smoke Exposure: No Advance Directives: No Advance Directives Information Provided: Yes Patient : No service: No (HPD) Current occupational status: employed Cognitive needs: No Hearing needs: No Vision needs: No Physical Exam ED Vital Signs: Vital Signs - 24 hr 06/23/23 07:58 06/23/23 11:45 Temperature 98.9 F 98.0 F Pulse Rate 77 68 Respiratory Rate 18 18 Blood Pressure 147/94 H 129/76 Pulse Oximetry 100 99 Oxygen Delivery Method Room Air Room Air BMI result Body Mass Index 28.4 Appearance: Alert. Oriented X3. in pain mild acute distress. Eyes: Pupils equal, round and reactive to light. ENT: Pharynx normal. Neck: Normal inspection. Neck supple. CVS: Normal heart rate and rhythm. Pulses normal. Respiratory: No respiratory distress. Breath sounds normal. Abdomen: Soft and L CVA ttp Skin: Skin warm and dry. Normal skin color. Normal skin turgor. Extremities: No lower extremity edema. No calf ttp Neuro: Oriented X 3. No motor deficit. No sensory deficit. Medical Decision Making Medical Decision Making [facility] Narrative: 43 yo female with PMH of kidney stones and horseshoe kidney, UTI, anxiety, HTN here with c/o L flank pain and nausea with known kidney stones at this time will hydrate, obtain labs and UA, US ordered - dispo pending labs and workup Differential Diagnosis Differential Diagnoses: The differential diagnosis associated with the presentation includes flank pain, renal colic Admission/Observation Consideration of admission/observation: Escalation of care including admission/observation considered no wbc count, Cr normal - UA appears contaminated but given horseshoe will treat she feels better stable for DC Lab Data [facility] Lab Attestation statement: I reviewed the patient's lab results. 06/23/23 08:29 06/23/23 08:29 Labs: Lab Results 06/23/23 06/23/23 Range/Units 08:28 08:29 WBC 9.8 (4.8-10.8) X10*3/uL RBC 4.69 (4.20-5.50) X10*6/uL Hgb 14.2 (12.0-16.0) g/dl Hct 43.4 (37.0-47.0) % MCV 92.5 (80.0-98.0) fL MCH 30.3 (27.0-33.0) pg MCHC 32.7 (31.0-35.0) g/dl RDW 12.3 (11.0-16.0) % Plt Count 311 (160-400) X10*3/uL MPV 10.1 (9.4-12.3) fL Immature Gran % (Auto) 0.3 (0.0-0.4) % Neut % (Auto) 71.5 (45-73) % Lymph % (Auto) 17.5 L (20-40) % [place] % (Auto) 8.3 (2-11) % Eos % (Auto) 1.7 (0-4) % Baso % (Auto) 0.7 (0-2) % Lymph # (Auto) 1.7 (1.2-4.9) X10*3/uL [place] # (Auto) 0.8 (0.1-1.2) X10*3/uL Eos # (Auto) 0.2 (0.0-0.4) X10*3/uL Baso # (Auto) 0.1 (0.0-0.2) X10*3/uL Abs Immat Gran (auto) 0.03 (0.00-0.03) X10*3/uL Absolute Neuts (auto) 7.0 (2.0-8.3) x10*3/uL Absolute Nucleated RBC 0.000 (0.0-0.012) X10*3/uL Nucleated RBC % (auto) 0.0 (0.0-0.2) /100WBC Sodium 141 (135-145) mmol/L Potassium 3.7 (3.3-5.1) mmol/L Chloride 107 (96-108) mmol/L Carbon Dioxide 27 (22-29) mmol/L Anion Gap 11 L (12-20) BUN 11 (9-16) mg/dL Creatinine 0.81 (0.5-1.4) mg/dL Estim Creat Clear Calc 93.4 Estimated GFR > 60 Random Glucose 86 (60-115) mg/dL Calcium 8.6 (8.4-10.2) mg/dL Total Bilirubin 0.5 (0.0-1.0) mg/dL AST 14 (5-31) U/L ALT 12 (0-31) U/L Alkaline Phosphatase 57 (39-117) U/L Total Protein 7.0 (6.5-8.0) g/dL Albumin 3.9 (3.5-5.0) g/dL Lipase 27 (8-78) U/L Urine Color Yellow Urine Appearance Turbid Urine pH 7.5 (5.0-9.0) Ur Specific [place] 1.015 (1.005-1.025) Urine Protein Negative (Neg-Trace) mg/dL Urine Glucose (UA) Negative (Negative) mg/dL Urine Ketones Negative (Negative) mg/dL Urine Blood Moderate (2+) H (Negative) Urine Nitrite Negative (Negative) Ur Leukocyte Esterase Small (1+) H (Negative) Urine RBC 11-20 H (0-2) /HPF Urine WBC 11-20 H (0-5) /HPF Ur Squamous Epith Cells 11-20 (0-2) /HPF Urine Bacteria 1+ (None Seen) Hyaline Casts 0-2 (0-2) /LPF Independent Interpretation I performed an independent interpretation of an: Ultrasound (no acute changes) Radiology Impression Discussion of test interpretation with radiology: I have reviewed the radiologist's reading. External Record Review External record reviewed: Inpatient record and Outpatient record Prescription Management I considered prescription management with: Pain Medication, Antibiotic and Other Medications Administered Discontinued Medications Generic Name Dose Route Start Last Admin Trade Name Freq PRN Reason Stop Dose Admin Hydromorphone HCl 1 mg 06/23/23 08:25 06/23/23 08:38 Hydromorphone Hcl 1 Mg/Ml Syringe IVPUSH 06/23/23 08:26 1 mg ONCE ONE Administration Protocol Sodium Chloride 1,000 mls @ 999 mls/hr 06/23/23 08:45 06/23/23 09:30 Ns IV 06/23/23 09:45 Infused .Q1H1M TONA Infusion Ondansetron HCl 4 mg 06/23/23 08:25 06/23/23 08:38 Ondansetron Hcl 4 Mg/2 Ml Vial IVPUSH 06/23/23 08:26 4 mg ONCE ONE Administration Critical Care Time Critical Care Time Critical Care Time: Yes Total Critical Care Time: 35 Attestation: pain improved with IV dilaudid, review of records I attest to this time spent taking care of the patient Discharge Plan Discharge Clinical Impression: Renal colic Patient Disposition: Home, Self-Care Instructions: Renal Colic (ED) Additional Instructions: return for worsening pain, vomiting, fevers, inability to eat or drink. follow up with Dr. Addison if not better in 24 to 48 hours. Prescriptions: New cefuroxime axetil 250 mg tablet 250 mg PO BID 7 Days Qty: 14 0RF morphine 15 mg tablet 15 mg PO Q6H PRN (Reason: pain) Qty: 14 0RF Rx Instructions: partial fill okay; Partial Fill upon patient request. ondansetron 4 mg tablet,disintegrating 4 mg PO Q8H PRN (Reason: nausea and vomiting) Qty: 20 0RF No Action (DME) Aircast off loading boot Kit See Rx Instructions .Route Qty: 1 0RF Rx Instructions: As directed lidocaine [Lidoderm] 5 % adhesive patch,medicated 1 patch topical DAILY PRN (Reason: Pain) Qty: 30 1RF Rx Instructions: leave on most painful area for up to 12 hrs amlodipine 5 mg tablet 5 mg PO DAILY 90 Days Qty: 90 1RF Wegovy 0.25 mg/0.5 mL pen injector 0.25 mg subcut QWEEK Qty: 2 1RF Rx Instructions: administer weeks 1 through 4 of therapy Ozempic 0.25 mg or 0.5 mg (2 mg/3 mL) pen injector 0.25 mg subcut QWEEK Qty: 3 0RF Rx Instructions: for 4 weeks lorazepam 0.5 mg tablet 0.5 mg PO TID PRN (Reason: anxiety) 30 Days Qty: 90 0RF ketorolac 10 mg tablet 10 mg PO TID PRN (Reason: pain) 5 Days Qty: 15 0RF tamsulosin [Flomax] 0.4 mg capsule 0.4 mg PO DAILY 14 Days Qty: 14 0RF tizanidine 4 mg tablet 4 mg PO Q8H PRN (Reason: muscle spasms) 30 Days Qty: 90 0RF ibuprofen 800 mg tablet 800 mg PO DAILY PRN (Reason: pain) Qty: 30 2RF Rx Instructions: Take with food bupropion HCl 150 mg tablet extended release 24 hr 150 mg PO QAM 30 Days Qty: 30 2RF multivitamin [Multiple Vitamins] Tablet 1 tab PO DAILY 90 Days Qty: 90 3RF pyridoxine (vitamin B6) 50 mg tablet 50 mg PO DAILY 90 Days Qty: 90 3RF diclofenac sodium 75 mg tablet,delayed release (DR/EC) 75 mg PO BID PRN (Reason: pain) Qty: 60 0RF (DME) 1 03/10 in heel lift See Rx Instructions .ROUTE .MEDSUPPLY Qty: 1 0RF Rx Instructions: As directed diclofenac sodium 75 mg tablet,delayed release (DR/EC) 75 mg PO BID PRN (Reason: pain) 30 Days Qty: 60 0RF Stand Alone Forms: Work/School Release Print Language: Croatian
[2023-06-23] MEDS: ondansetron HCL 4 MG/2 ML VIAL IVPUSH (08:38)
[2023-06-23] MEDS: HYDROmorphone HCl 1 MG/ML SYRINGE IVPUSH (08:38)
[2023-06-23] MEDS: 0.9 % Sodium Chloride 1,000 ML 999 ML IV (08:38)
[2023-06-23 08:41] LABS: MANUAL DIFF FLAG NO
[2023-06-23 08:42] LABS: Basophils Absolute Auto 0.1 X10*3/uL (0.0-0.2); Basophils Percent Auto 0.7 % (0-2); Eosinophils Absolute Auto 0.2 X10*3/uL (0.0-0.4); Eosinophils Percent Auto 1.7 % (0-4); Hematocrit 43.4 % (37.0-47.0); Hemoglobin 14.2 g/dl (12.0-16.0); Imm Gran Abs Auto 0.03 X10*3/uL (0.00-0.03); Imm Gran Pct Auto 0.3 % (0.0-0.4); Lymphocytes Absolute Auto 1.7 X10*3/uL (1.2-4.9); Lymphocytes Percent Auto 17.5 % (20-40); Mean Corpuscular HGB Conc 32.7 g/dl (31.0-35.0); Mean Corpuscular Hemoglobin 30.3 pg (27.0-33.0); Mean Corpuscular Volume 92.5 fL (80.0-98.0); Mean Platelet Volume 10.1 fL (9.4-12.3); Monocytes Absolute Auto 0.8 X10*3/uL (0.1-1.2); Monocytes Percent Auto 8.3 % (2-11); Neutrophils Percent Auto 71.5 % (45-73); Platelet Count 311 X10*3/uL (160-400); Red Blood Count 4.69 X10*6/uL (4.20-5.50); Red Cell Distribution Width 12.3 % (11.0-16.0); White Blood Count 9.8 X10*3/uL (4.8-10.8)
[2023-06-23 08:43] LABS: Appearance Urine Turbid; Color Urine Yellow; Glucose Urine UA Negative (Negative); Leukocyte Esterase Urine Small (1+) (Negative); Nitrite Urine Negative (Negative); PH 7.5 (5.0-9.0); Specific Gravity - Urine 1.015 (1.005-1.025); UMIC TRIGGER UACC YES; Urine Blood Moderate (2+) (Negative); Urine Ketones Negative (Negative); Urine Protein Negative (Neg-Trace)
[2023-06-23 08:48] LABS: Bacteria Urine 1+ (None Seen); Hyaline Casts Urine 0-2 /LPF (0-2); UACC Culture Trigger YES
[2023-06-23 08:56] LABS: Alanine Aminotransferase 12 U/L (0-31); Albumin Level 3.9 g/dL (3.5-5.0); Alkaline Phosphatase 57 U/L (39-117); Anion Gap 11 (12-20); Aspartate Amino Transferase 14 U/L (5-31); Bilirubin Total 0.5 mg/dL (0.0-1.0); Blood Urea Nitrogen 11 mg/dL (9-16); Calcium 8.6 mg/dL (8.4-10.2); Carbon Dioxide 27 mmol/L (22-29); Chloride 107 mmol/L (96-108); Creatinine Clr Calc Pharmacy 93.4; Estimated Glomerular Filt Rate > 60; Glucose Random 86 mg/dL (60-115); Lipase 27 U/L (8-78); Potassium 3.7 mmol/L (3.3-5.1); Sodium 141 mmol/L (135-145)
--- NOTE | 2023-06-23 10:05 | PC.NURSE ---
ultrasound in room
--- NOTE | 2023-06-23 10:07 | PC.NURSE ---
patient is ambulatory to and from the bathroom.
[2023-06-23 11:45] VITALS: BP 129/76; PULSE 68; RESP 18; TEMP 36.7; O2SAT 99
[2023-06-23] MEDS: HYDROmorphone HCl 0.5 MG/0.5 ML SYRINGE IVPUSH (12:45)
[2023-06-24 12:21] LABS: BV Int Neg Control Negative (Negative); BV Int Pos Control Positive (Positive)
== END 2023-06-23 13:14 | disposition home or self-care (01) ==
PROVIDERS: Emergency Provider Emergency Medicine; PCP Internal Medicine
DX: N23 Unspecified renal colic (principal); I10 Essential (primary) hypertension; Q63.1 Lobulated, fused and horseshoe kidney; Z87.442 Personal history of urinary calculi
CPT/HCPCS: 36415; 76770; 80053; 81001; 83690; 85025; 87086; 87480; 87510; 87660; 96361; 96374; 96375; 96376; 99284; J1170; J2405

== ENCOUNTER 2023-08-24 10:27 | Outpatient (AMB) | payer OTHER, SELFPAY ==
[2023-08-24 10:26] VITALS: BP 130/90; PULSE 86; TEMP 36.8; O2SAT 99; BMI 28.9
--- NOTE | 2023-08-24 10:26 | AM.OFFWIN_ITS ---
Intake Vital Signs 08/24/23 10:26 Height 5 ft 6 in Weight 179 lb BMI 28.9 BP 130/90 H Blood Pressure Location Lt brachial Position Sitting Pulse 86 Pulse Source Pulse Oximeter Temp 98.2 F Temp Source Temporal Artery Scan Pulse Oximetry (%) 99 Oxygen Delivery Method Room Air Intake Visit Reasons: EP sore throat ear fluid headache Intake Note: pt is here today for sore throat ear fluid headache started yesterday Patient Tobacco Use Status: Never used Tobacco Allergies celecoxib [From Celebrex] Allergy (Intermediate, Verified 08/24/23 10:55) Itching metronidazole Allergy (Unknown, Verified 08/24/23 10:55) Rash sertraline [Zoloft] Allergy (Unknown, Verified 08/24/23 10:55) Itching sulfamethoxazole [From BACTRIM] Allergy (Unknown, Verified 08/24/23 10:55) Itching trimethoprim [From BACTRIM] Allergy (Unknown, Verified 08/24/23 10:55) Itching naproxen [From Naprosyn] Allergy (Verified 08/24/23 10:55) Itching venlafaxine [From Effexor] Allergy (Verified 08/24/23 10:55) Itching tramadol Adverse Reaction (Intermediate, Verified 08/24/23 10:55) Nausea alprazolam [From XANAX] Adverse Reaction (Mild, Verified 08/24/23 10:55) Confusion Sulfa (Sulfonamide Antibiotics) Adverse Reaction (Unknown, Verified 08/24/23 10:55) yeast infection Medication List - Last Reconciled 08/24/23 by LOLIS Read [1 03/10 in heel lift As directed] amlodipine 5 mg PO DAILY 90 days amoxicillin-pot clavulanate 875-125 mg 1 tab PO Q12H bupropion HCl XL 150 mg PO QAM 30 days cefuroxime axetil 250 mg PO BID 7 days diclofenac sodium 75 mg PO BID PRN 30 days diclofenac sodium 75 mg PO BID PRN ibuprofen 800 mg PO DAILY PRN ketorolac 10 mg PO TID PRN 5 days lidocaine 5% (Lidoderm) 1 patch topical DAILY PRN lorazepam 0.5 mg PO TID PRN 30 days morphine 15 mg PO Q6H PRN multivitamin (Multiple Vitamins tablet) 1 tab PO DAILY 90 days off loading boot (Aircast off loading boot) As directed ondansetron 4 mg PO Q8H PRN prednisone 40 mg (2 x 20 mg) PO DAILY pyridoxine (vitamin B6) 50 mg PO DAILY 90 days semaglutide (Ozempic) 0.25 mg (0.368 mL) subcut QWEEK semaglutide (weight loss) (Wegovy) 1 mg (0.5 mL) subcut QWEEK 4 weeks semaglutide (weight loss) (Wegovy) 0.25 mg (0.5 mL) subcut QWEEK tamsulosin (Flomax) 0.4 mg PO DAILY 2 weeks tizanidine 4 mg PO Q8H PRN 30 days Do you need a note to return to daycare/school/sports/work: Yes HPI HPI Comments History of Present Illness Details Patient is a 43-year-old female in today for a sick visit Patient reports symptoms of sore throat, cough, ear fullness, and headache, chills x2 days. 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 Patient is in office strep swab is positive PFSH Medical History HPV (human papilloma virus) infection Renal calculi Pyelonephritis Lumbar degenerative disc disease Horseshoe kidney Anxiety Obesity (BMI 30-39.9) Benign essential hypertension Gestational HTN Surgical History History of extraction of renal calculus Back pain with history of spinal surgery H/O wrist surgery Family History Father HIV (human immunodeficiency virus infection) Mother CVD (cardiovascular disease) Maternal Grandmother Breast cancer Diabetes Hypertension Maternal Grandfather Prostate cancer Paternal Grandmother CVD (cardiovascular disease) Paternal Grandfather Prostate cancer Sister In good health CHF (congestive heart failure) Son In good health Social History Household Members: Spouse Housing: Apartment Are you a primary health care / medical job titles to a significant other at home: No Do you presently have visiting nurse or other home services: No Alcohol intake: never Patient Tobacco Use Status: Never used Tobacco e-Cigarette/Vaping Use: Never Used Second Hand Smoke Exposure: No service: No (HPD) Current occupational status: employed Cognitive needs: No Hearing needs: No Vision needs: No Review of Systems Const All systems reviewed & are unremarkable except as noted in HPI and below Reports chills and Denies fever(s) Eyes Denies blurry vision and Denies diplopia ENT Reports sore throat Physical Exam Vital Signs: Last Vital Signs Temp 98.2 F 08/24/23 10:26 Pulse 86 08/24/23 10:26 BP 130/90 H 08/24/23 10:26 Pulse Ox 99 08/24/23 10:26 Oxygen Delivery Method Room Air 08/24/23 10:26 BMI result Body Mass Index 28.9 Const Other: Appearance: Alert.? Oriented X3.? No acute distress.? Head: Normocephalic. Eyes: Sclera white. ENT: Pharynx erythema,+ Tonsilar Exudates. TM intact and pearly cabrera. ? Neck: Normal inspection.? Neck supple.?Full ROM. CVS: Normal heart rate and rhythm.? Pulses normal.? Respiratory: No respiratory distress.? Breath sounds normal.? Neuro: Oriented X 3.? Results AMB Rapid Strep AMB Rapid Strep Positive Last Edit by CARLEY Jordan on 08/24/23 10:4 6 Results Reviewed Results Reviewed: Laboratory Last Values Strep Scn [facility] Positive 08/24/23 10:45 Assessment & Plan Assessment & Plan (1) Strep pharyngitis: Comment: New patient had positive in office rapid strep screen. Will give Augmentin x7 days. Patient will also be given prednisone. She has been educated on the side effects of these medications. Has also been educated to drink plenty of fluids and rest. Patient given work note. Code(s): J02.0 - Streptococcal pharyngitis Plan: Take your medications as prescribed. If you were prescribed antibiotics today, it is important that you take your medication to their entirety, do not skip any doses, do not finish them early. Follow-up with your primary care provider this week. Return to the emergency department with new or worsening symptoms. Such as fevers, chills, chest pain, shortness of breath, nausea, vomiting, dizziness, headache, vision changes, lethargy In case of emergency call 911 Orders: Orders AMB Rapid Strep Screen Today Z13.9 - Encounter for screening, unspecified SARS-CoV2/FLU/RSV Today J06.9 - Acute upper respiratory infection, unspecified Medications: New amoxicillin-pot clavulanate 875-125 mg 1 tab PO Q12H 14 tabs 0RF prednisone 40 mg (2 x 20 mg) PO DAILY 10 tabs 0RF Coding Level of Care Code Est Pt Level 3 (50368) Diagnoses Strep pharyngitis J02.0 Time Spent (min) 25
== END 2023-08-24 11:50 | disposition home or self-care (01) ==
PROVIDERS: PCP Internal Medicine; Visit Provider Nurse Practitioner Primary Care
DX: J02.0 Streptococcal pharyngitis (principal)
CPT/HCPCS: 87880; 99213

== ENCOUNTER 2023-08-24 12:50 | Outpatient (REF) | payer OTHER, SELFPAY ==
[2023-08-24 13:40] LABS: Influenza A PCR NEGATIVE (Negative); Influenza B PCR NEGATIVE (Negative); Resp Syncy Virus RNA Qual PCR NEGATIVE (Negative); SARS COV2 PCR INHOUSE NEGATIVE (Negative)
== END 2023-08-24 12:51 | disposition home or self-care (01) ==
LOC: HO.LNP 12:50
PROVIDERS: Visit Provider Nurse Practitioner Primary Care
DX: J06.9 Acute upper respiratory infection, unspecified (principal)
CPT/HCPCS: 0241U

== ENCOUNTER 2023-12-12 12:58 | Outpatient (REF) | payer OTHER, SELFPAY ==
--- NOTE | ~2023-12-12 | US_ITS ---
EXAMINATION: US RETROPERITONEAL LIMITED (RENAL ONLY) CLINICAL INFORMATION: Calculus of kidney. COMPARISON: Ultrasound kidneys and bladder 06/23/2023. Renal ultrasound 06/16/2023. CT abdomen and pelvis 06/06/2023. X-ray abdomen KUB 06/25/2020. TECHNIQUE: Real-time imaging of the kidneys. FINDINGS: There is a horseshoe kidney present. RIGHT RENAL MOIETY: 9.1 x 4.3 x 5.0 cm (SAG x AP x TRV). The kidney is normal in size, contour, and echogenicity. Renal cortical thickness is normal. No calculi or focal parenchymal lesions. Renal calculi seen previously on the prior ultrasound as well as CT scan are not visualized. No hydronephrosis. LEFT RENAL MOIETY: 11.6 x 3.7 x 5.2 cm (SAG x AP x TRV). The kidney is normal in size, contour, and echogenicity. Renal cortical thickness is normal. No calculi or focal parenchymal lesions.Renal calculi seen previously on the prior ultrasound as well as CT scan are not visualized. No hydronephrosis. US/US renal BI IMPRESSION: Horseshoe kidney. No renal calculi are seen. Electronically signed by: Jos Peters MD 02/04/2024 10:47 AM ROSCOE
== END 2023-12-12 12:59 | disposition home or self-care (01) ==
LOC: HO.US 12:58
PROVIDERS: PCP Internal Medicine; Visit Provider Urology
DX: N20.0 Calculus of kidney (principal)
CPT/HCPCS: 76775

== ENCOUNTER 2023-12-20 11:31 | Outpatient (AMB) | payer OTHER, SELFPAY ==
--- NOTE | 2023-12-20 11:32 | MHC.OFFVIS ---
Intake Visit Reasons: 6m/US(set) Intake Note: Patient is Present for 6M Follow Up/US Urology Medication: Vitamin B6, Tamsulosin Antibiotic Allergies: Sulfa, Trimethroprim, Bactrim Blood Thinners: None Client Professional Required: No Allergies celecoxib [From Celebrex] Allergy (Intermediate, Verified 12/20/23 11:34) Itching metronidazole Allergy (Unknown, Verified 12/20/23 11:34) Rash sertraline [Zoloft] Allergy (Unknown, Verified 12/20/23 11:34) Itching sulfamethoxazole [From BACTRIM] Allergy (Unknown, Verified 12/20/23 11:34) Itching trimethoprim [From BACTRIM] Allergy (Unknown, Verified 12/20/23 11:34) Itching naproxen [From Naprosyn] Allergy (Verified 12/20/23 11:34) Itching venlafaxine [From Effexor] Allergy (Verified 12/20/23 11:34) Itching tramadol Adverse Reaction (Intermediate, Verified 12/20/23 11:34) Nausea alprazolam [From XANAX] Adverse Reaction (Mild, Verified 12/20/23 11:34) Confusion Sulfa (Sulfonamide Antibiotics) Adverse Reaction (Unknown, Verified 12/20/23 11:34) yeast infection HPI Comments Details: Shirlene very pleasant female. She is a patient of Dr. Olmstead. She is seen for following urologic conditions - recurrent nephrolithiasis - in setting of horseshoe kidney Six-month follow-up Renal ultrasound does not report any stones currently Continue fluids Continue B6 Weight loss has been helpful Six-month follow-up repeat imaging Nephrolithiasis Here following stone procedure - horseshoe kidney Has had previous stones Stone analysis 10/25 mixed calcium oxalate with calcium apaptite Prior interventions - 10/25 right-sided distal ureteroscopy laser lithotripsy stent placement - 06/25 right ESWL - 11/26 right ureteroscopy laser lithotripsy Imaging - 06/25 renal ultrasound with 5 mm stone on right side - 11/25 CT scan the distal right ureteric stone with mild hydronephrosis. No other stones seen - 01/25 renal ultrasound question of 3 mm stone on right - 08/26 renal ultrasound 6 mm right mid pole - 10/27 renal US mild fullness right side - 06/28 renal ultrasound question of small stone 2 mm bilateral Stone composition - 10/25 mixed calcium oxalate with calcium phosphate - 11/26 calcium oxalate with calcium phosphate Litholink - 01/26 good volume, high citrate - high calcium, high sodium Therapeutic plan - encourage fluids - interval surveillance [facility] Medical History HPV (human papilloma virus) infection Renal calculi Pyelonephritis Lumbar degenerative disc disease Horseshoe kidney Anxiety Obesity (BMI 30-39.9) Benign essential hypertension Gestational HTN Surgical History History of extraction of renal calculus Back pain with history of spinal surgery H/O wrist surgery Family History Father HIV (human immunodeficiency virus infection) Mother CVD (cardiovascular disease) Maternal Grandmother Breast cancer Diabetes Hypertension Maternal Grandfather Prostate cancer Paternal Grandmother CVD (cardiovascular disease) Paternal Grandfather Prostate cancer Sister In good health CHF (congestive heart failure) Son In good health Social History Household Members: Spouse Housing: Apartment Are you a primary childcare center director to a significant other at home: No Do you presently have visiting nurse or other home services: No Alcohol intake: never Patient Tobacco Use Status: Never used Tobacco e-Cigarette/Vaping Use: Never Used Second Hand Smoke Exposure: No service: No (H[employer]) Current occupational status: employed Cognitive needs: No Hearing needs: No Vision needs: No Review of Systems Const Denies chills and Denies fever(s) Card Reports no additional complaints and Denies syncope Resp Denies cough GI Denies abdominal pain and Denies heartburn Reports as per HPI and Denies change in libido Neuro Denies syncope Psych Denies change in libido Endo Denies change in libido Physical Exam Const General: cooperative, healthy appearing, comfortable and no acute distress Orientation/consciousness: patient oriented x3 HEENT Face and sinus: Yes normal facial exam Mouth: moist mucous membranes Neck Neck: Yes normal visual inspection, Yes full ROM and Yes trachea midline Chest Chest palpation & inspection: normal inspection of the chest Resp Effort & Inspection: normal respiratory effort, able to speak in complete sentences and no respiratory distress GI Inspection: Yes normal to inspection Back/Spine/Pelvis Cervical Spine: normal cervical lordosis Thoracic/Lumbar Spine: thoracic and lumbar spine normal to inspection Skin General skin exam: no rashes or lesions noted Neuro General: patient oriented x3, gait normal, tone normal and moves all extremities Extrem General: Yes normal to inspection and Yes capillary refill normal Results AMB Urinalysis, Automated UA Leukoctes 0 Teresa/uL Last Edit by CARLEY Jordan on 12/20/23 11:50 UA Nitrite Negative Last Edit by Alexandria Maldonado [facility] on 12/20/23 11:50 UA Urobilinogen 0.2 mg/dL Last Edit by Alexandria Maldonado [facility] on 12/20/23 11:50 UA Protein 15 mg/dL Last Edit by Alexandria Maldonado [facility] on 12/20/23 11:50 UA pH 6.0 Last Edit by Alexandria Maldonado [facility] on 12/20/23 11:50 UA Blood 25 Sebastain/uL Last Edit by Alexandria Maldonado [facility] on 12/20/23 11:50 UA Specific [place] 1.015 Last Edit by Alexandria Maldonado [facility] on 12/20/23 11:50 UA Ketone Negative Last Edit by Alexandria Maldonado [facility] on 12/20/23 11:50 UA Bilirubin 0 mg/dL Last Edit by Alexandria Maldonado [facility] on 12/20/23 11:50 UA Glucose 0 mg/dL Last Edit by Alexandria Maldonado [facility] on 12/20/23 11:50 Results Reviewed Results Reviewed: Laboratory Last Values Urine pH (Auto) 6.0 12/20/23 11:49 Specific [place] (Auto) 1.015 12/20/23 11:49 Urine Protein (Auto) 15 mg/dL 12/20/23 11:49 Glucose (UA)(Auto) 0 mg/dL 12/20/23 11:49 Urine Ketones (Auto) Negative 12/20/23 11:49 Urine Blood (Auto) 25 Sebastian/uL 12/20/23 11:49 Urine Nitrite (Auto) Negative 12/20/23 11:49 Urine Bilirubin (Auto) 0 mg/dL 12/20/23 11:49 Urine Urobilinogen (Auto) 0.2 mg/dL 12/20/23 11:49 Leukocyte Esterase (Auto) 0 Teresa/uL 12/20/23 11:49 Assessment & Plan Assessment & Plan (1) Recurrent UTI (urinary tract infection): Code(s): N39.0 - Urinary tract infection, site not specified Category: Medical Plan Six-month follow-up ultrasound Orders: Orders AMB Urinalysis Automated Today Z13.9 - Encounter for screening, unspecified US renal BI 6 Months N20.0 - Calculus of kidney Patient Instructions: Imaging studies, laboratory and physical exam results were discussed and reviewed in detail. No major barriers to patient understanding were identified. An opportunity to ask questions regarding the treatment plan was provided. All questions were answered. The patient expressed understanding and agreement with the above treatment plan. The patient is aware they should contact our office by phone for worsening of their current condition or the appearance of new urologic symptoms. Compliance is encouraged with any medications and followup testing that is ordered. It is a privilege to participate in the urologic care of your patient. If you have any questions or concerns regarding treatment for the above conditions, or other urologic issues, please do not hesitate to contact me. The office telephone contact is [phone]. This note is constructed using voice recognition software. While every effort has been made to ensure accuracy data keyer errors may have been included. Yours sincerely, Dr Jose Alfredo Addison MD, [facility] - Urology Providers of Expert, Compassionate Care for the Genitourinary System Coding Level of Care Code Est Pt Level 3 (99288) Diagnoses Recurrent UTI (urinary tract infection) N39.0
== END 2023-12-20 12:00 | disposition home or self-care (01) ==
PROVIDERS: PCP Internal Medicine; Visit Provider Urology
DX: Z13.9 Encounter for screening, unspecified (principal); N39.0 Urinary tract infection, site not specified
CPT/HCPCS: 99213

== ENCOUNTER → 2023-12-20 11:31 | Outpatient (BNVA) | payer OTHER, SELFPAY | PROVIDERS: PCP Internal Medicine; Visit Provider Urology | DX: N39.0 Urinary tract infection, site not specified (principal); N20.0 Calculus of kidney; Q63.1 Lobulated, fused and horseshoe kidney | CPT/HCPCS: 81003 ==

== ENCOUNTER 2024-03-13 14:54 | Outpatient (REF) | payer OTHER, SELFPAY ==
[2024-03-13 16:35] LABS: Appearance Urine Clear; Color Urine Dark Yellow; Glucose Urine UA Negative (Negative); Leukocyte Esterase Urine Negative (Negative); Nitrite Urine Positive (Negative); UMIC TRIGGER UACC YES; Urine Blood Negative (Negative); Urine Ketones Negative (Negative); Urine Protein Negative (Neg-Trace)
[2024-03-13 18:53] LABS: Bacteria Urine Trace (None Seen); Hyaline Casts Urine 0-2 /LPF (0-2); RBC Urine 0-2 /HPF (0-2); UACC Culture Trigger YES; WBC Urine 0-5 /HPF (0-5)
[2024-03-14 11:31] LABS: Bacterial Vaginosis PCR NEGATIVE (Negative); Candida Group PCR NOT DETECTED (Not Detect); Candida glab krusei PCR NOT DETECTED (Not Detect); Trichomonas vaginalis PCR NOT DETECTED (Not Detect)
== END 2024-03-13 14:55 | disposition home or self-care (01) ==
LOC: HO.LAB 14:54
PROVIDERS: Physician Assistant Medical; PCP Internal Medicine; Visit Provider Internal Medicine
DX: N30.01 Acute cystitis with hematuria (principal); N89.8 Other specified noninflammatory disorders of vagina; R30.0 Dysuria; M54.9 Dorsalgia, unspecified; R63.0 Anorexia; M51.369 Other intervertebral disc degeneration, lumbar region without mention of lumbar back pain or lower extremity pain; E55.9 Vitamin D deficiency, unspecified; N20.0 Calculus of kidney; I10 Essential (primary) hypertension; F41.9 Anxiety disorder, unspecified; Q63.1 Lobulated, fused and horseshoe kidney; Z87.442 Personal history of urinary calculi
CPT/HCPCS: 81001; 81002; 81003; 81515; 87086; 96127

== ENCOUNTER 2024-03-13 14:54 | Outpatient (AMB) | payer OTHER, SELFPAY ==
--- NOTE | 2024-03-13 15:10 | MHC.PC.OV ---
Vital Signs 03/13/24 15:13 Height 5 ft 6 in Weight 183 lb BMI 29.5 BP 110/60 Blood Pressure Location Lt brachial Position Sitting Pulse 80 Pulse Source Pulse Oximeter Pulse Oximetry (%) 97 Oxygen Delivery Method Room Air Intake Visit Reasons: uti symptoms / lower back pain Intake Note: Patient is here to follow up on possible uti or kidney stone and lower back pain. Symptoms of pressure, frequency, lower abdominal pain, tick discharge. Hand Hide Stretcher Required: No Trout Farmer: Not Required per policy Accompanied by: Self / Same As Patient Allergies celecoxib [From Celebrex] Allergy (Intermediate, Verified 03/13/24 15:56) Itching metronidazole Allergy (Unknown, Verified 03/13/24 15:56) Rash sertraline [Zoloft] Allergy (Unknown, Verified 03/13/24 15:56) Itching sulfamethoxazole [From BACTRIM] Allergy (Unknown, Verified 03/13/24 15:56) Itching trimethoprim [From BACTRIM] Allergy (Unknown, Verified 03/13/24 15:56) Itching naproxen [From Naprosyn] Allergy (Verified 03/13/24 15:56) Itching venlafaxine [From Effexor] Allergy (Verified 03/13/24 15:56) Itching tramadol Adverse Reaction (Intermediate, Verified 03/13/24 15:56) Nausea alprazolam [From XANAX] Adverse Reaction (Mild, Verified 03/13/24 15:56) Confusion Sulfa (Sulfonamide Antibiotics) Adverse Reaction (Unknown, Verified 03/13/24 15:56) yeast infection Medication List - Last Reconciled 03/13/24 by Karie Mauro PA-C [1 03/10 in heel lift As directed] amlodipine 5 mg PO DAILY 90 days bupropion HCl XL 150 mg PO QAM 30 days diclofenac sodium 75 mg PO BID PRN 30 days diclofenac sodium 75 mg PO BID PRN fluconazole 150 mg PO Q3D 2 doses ibuprofen 800 mg PO DAILY PRN ketorolac 10 mg PO TID PRN 5 days lidocaine 5% (Lidoderm) 1 patch topical DAILY PRN lorazepam 0.5 mg PO TID PRN 30 days morphine 15 mg PO Q6H PRN multivitamin (Multiple Vitamins tablet) 1 tab PO DAILY 90 days nitrofurantoin monohyd/m-cryst 100 mg (Macrobid) 100 mg PO BID 7 days off loading boot (Aircast off loading boot) As directed ondansetron 4 mg PO Q8H PRN phenazopyridine (Pyridium) 100 mg PO TID PRN 6 doses pyridoxine (vitamin B6) 50 mg PO DAILY 90 days semaglutide (weight loss) (Wegovy) 1 mg (0.5 mL) subcut QWEEK 4 weeks tamsulosin (Flomax) 0.4 mg PO DAILY 2 weeks tizanidine 4 mg PO Q8H PRN 30 days Tobacco use date assessed: 03/13/24 Dental Screening Dental Screen Date: 03/13/24 Did you have a dental visit in the last 12 months?: Yes Did you have a dental problem in the last 6 months where you did not have access to dental care?: No Was dental information given to patient?: Patient has dentist [facility] Medical History (Updated 03/13/24 @ 15:51 by Karie Mauro PA-C) Breast cancer screening by mammogram (~06/11/23) HPV (human papilloma virus) infection Renal calculi Pyelonephritis Lumbar degenerative disc disease Horseshoe kidney Anxiety Obesity (BMI 30-39.9) Benign essential hypertension Gestational HTN Surgical History History of extraction of renal calculus Back pain with history of spinal surgery H/O wrist surgery Family History (Updated 03/13/24 @ 15:11 by SHALA London) Father HIV (human immunodeficiency virus infection) Mother CVD (cardiovascular disease) Maternal Grandmother Breast cancer Diabetes Hypertension Maternal Grandfather Prostate cancer Paternal Grandmother CVD (cardiovascular disease) Paternal Grandfather Prostate cancer Sister In good health CHF (congestive heart failure) Son In good health Social History Household Members: Spouse Housing: Apartment Are you a primary manager wound care to a significant other at home: No Do you presently have visiting nurse or other home services: No Alcohol intake: never Patient Tobacco Use Status: Never used Tobacco e-Cigarette/Vaping Use: Never Used Second Hand Smoke Exposure: No service: No (HPD) Current occupational status: employed Cognitive needs: No Hearing needs: No Vision needs: No Questionnaire PHQ-9 Over the last 2 weeks, how often have you been bothered by any of the following problems? 1. Little interest or pleasure in doing things: not at all 2. Feeling down, depressed, or hopeless: not at all 3. Trouble falling or staying asleep, or sleeping too much: not at all 4. Feeling tired or having little energy: not at all 5. Poor appetite or overeating: not at all 6. Feeling bad about yourself - or that you are a failure or have let yourself or your family down: not at all 7. Trouble concentrating on things, such as reading the newspaper or watching television: not at all 8. Moving or speaking so slowly that other people could have noticed. Or the opposite - being so fidgety or restless that you have been moving around a lot more than usual: not at all 9. Thoughts that you would be better off or of hurting yourself in some way: not at all Total score: 0 Depression Screening Interpretation: Negative Depression Screening Done: Yes Source: Developed by Drs. Ole Ovalle, Jazzy Andrade, Sergio Lucio and colleagues, with an educational alex from [employer]. Thrive Questionnaire Date Thrive assessed: 03/13/24 I am a: Patient What is your living situation today?: I have a steady place to live Within the past 12 months, did the food you bought not last and you didn't have the money to get more?: Never true Within the past 12 months, did you worry whether your food would run out before you got money to buy more?: Never true Do you have trouble paying for medicines?: No Do you have trouble getting transportation to medical appointments?: No Do you have trouble paying your heating and electricity bill?: No Do you have trouble taking care of your child, family member or friend?: No Do you have trouble with day-to-day activities such as bathing, preparing meals, shopping, managing finances, etc.?: No Are you currently unemployed and looking for a job?: No Are you interested in more education?: No Currently or been in a relationship where the following occur: No concerns reported THRIVE Score: 0 AUDIT C Alcohol Use Questionnaire (AUDIT-C) 1. How often do you have a drink containing alcohol?: Monthly or less 2. How many drinks containing alcohol do you have on a typical day when you are drinking?: 1 or 2 Total Score: 1 EMMY-7 AMB Questionnaire EMMY-7 Date EMMY - 7 assessed: 03/13/24 Feeling nervous, anxious, or on edge: 0 = Not at all Not being able to stop or control worryin = Not at all Worrying too much about different things: 0 = Not at all Trouble relaxin = Not at all Being so restless that it is hard to sit still: 0 = Not at all Becoming easily annoyed or irritable: 0 = Not at all Feeling afraid as if something awful might happen: 0 = Not at all Total EMMY-7 score (0-4 normal; 5-9 mild; 10-14 moderate; 15-21 severe): 0 Source: Developed by Drs. Ole Ovalle, Jazzy Andrade, Sergio Lucio and colleagues, with an educational alex from [employer]. Physical exam (Primary Care) Vital Signs: Last Vital Signs Pulse 80 03/13/24 15:13 BP 110/60 03/13/24 15:13 Pulse Ox 97 03/13/24 15:13 Oxygen Delivery Method Room Air 03/13/24 15:13 BMI result Body Mass Index 29.5 Tobacco/Smoking Status: Tobacco use Status Tobacco use date assessed 03/13/24 03/13/24 15:16 Patient Tobacco Use Status Never used Tobacco 03/13/24 15:16 e-Cigarette/Vaping Use Never Used 03/13/24 15:16 PHQ-9: PHQ-9 Score PHQ-9: Total score 0 03/13/24 15:16 Depression Screening Interpretation: Negative Thrive Assessment: Date of Thrive Assessment Date Thrive assessed 03/13/24 03/13/24 15:16 Currently or been in a relationship where the following occur: No concerns reported Results AMB Urinalysis Dipstick UR Leukocytes Moderate Last Edit by SHALA London on 03/13/24 15:27 UR Nitrite Positive Last Edit by SHALA London on 03/13/24 15:27 UR Urobilinogen 1 Last Edit by SHALA London on 03/13/24 15:27 UR Protein Negative Last Edit by SHALA London on 03/13/24 15:27 UR Ph 7.0 Last Edit by SHALA London on 03/13/24 15:27 UR Blood Negative Last Edit by Kristyn Sykes A on 03/13/24 15:27 UR Specific [place] 1.015 Last Edit by ROSA M LondonA on 03/13/24 15:27 UR Ketone Negative Last Edit by Kristyn Sykes A on 03/13/24 15:27 UR Bilirubin Negative Last Edit by Kristyn Sykes A on 03/13/24 15:27 UR Glucose Negative Last Edit by Kristyn Sykes Joana on 03/13/24 15:27 Results Reviewed Results Reviewed: Laboratory Last Values Urine pH (Clinic) 7.0 03/13/24 15:10 Specific [place] (Clinic) 1.015 03/13/24 15:10 Ur Protein (Clinic) Negative 03/13/24 15:10 Ur Ketones (Clinic) Negative 03/13/24 15:10 Urine Blood (Clinic) Negative 03/13/24 15:10 Urine Nitrite Positive A* 03/13/24 15:10 Urine Bilirubin (Clinic) Negative 03/13/24 15:10 Urobilinogen (Clinic) 1 A* 03/13/24 15:10 Leukocyte Esterase (Clinic) Moderate 03/13/24 15:10 Urine Glucose (Clinic) Negative 03/13/24 15:10 Positive for UTI. Coding Level of Care Code Est Pt Level 4 (69578) Complex EM visit Add On G2211 Diagnoses UTI (urinary tract infection) N30.01 Hematuria presence: with hematuria Urinary tract infection type: acute cystitis Vaginal discharge N89.8 Dysuria R30.0 History of kidney stones Z87.442 Back pain M54.9 Screening for HPV (human papillomavirus) Z11.51 Breast cancer screening by mammogram Z12.31 Anorexia R63.0 Lumbar degenerative disc disease M51.36 Vitamin D deficiency E55.9 Nephrolithiasis N20.0 Benign essential hypertension I10 Horseshoe kidney Q63.1 Anxiety F41.9 Assessment & Plan Assessment & Plan (1) UTI (urinary tract infection): Code(s): N39.0 - Urinary tract infection, site not specified Category: Medical Qualifiers: Hematuria presence: with hematuria Urinary tract infection type: acute cystitis Qualified Code(s): N30.01 - Acute cystitis with hematuria Plan: Patient with urinary frequency, urgency and dysuria for the past 3 days. UA with positive nitrates and leukocytes consistent with UTI will start on Macrobid pending urine culture. Will continue to monitor. (2) Vaginal discharge: Code(s): N89.8 - Other specified noninflammatory disorders of vagina Category: Medical Plan: Patient has white discharge. Concerned for bacterial vaginosis or yeast. No thoughts of STIs. Bacterial vaginosis, yeast and Trichomonas swab sent at this time. Patient given prescription for Diflucan to be taken after the Macrobid has completed. Will continue to monitor. (3) Dysuria: Code(s): R30.0 - Dysuria Category: Medical Plan: Patient with urinary frequency, urgency and dysuria with abnormal discharge. Positive leukocytes and nitrates on UA. Patient will be started on Macrobid pending urine culture results. (4) History of kidney stones: Code(s): Z87.442 - Personal history of urinary calculi Category: Medical Plan: Patient with history of kidney stones. Patient will have renal ultrasound. Will re-evaluate once renal ultrasound results have come back. Condition is stable. (5) Back pain: Code(s): M54.9 - Dorsalgia, unspecified Category: Medical Plan: Patient reports acute on chronic back pain may be related to degenerative disc disease versus UTI versus kidney stones. Patient will be started on Macrobid. Renal ultrasound ordered at this time. Will continue to monitor. Condition is stable (6) Screening for HPV (human papillomavirus): Onset Date: ~11/11/22 Code(s): Z11.51 - Encounter for screening for human papillomavirus (HPV) Category: Medical Plan: Patient had a history of HPV which was treated at 25 years old. Patient will speak to PCP about Pap smear this year at next visit in 2-4 weeks. Will continue to monitor. (7) Breast cancer screening by mammogram: Onset Date: ~06/11/23 Code(s): Z12.31 - Encounter for screening mammogram for malignant neoplasm of breast Category: Medical Plan: Patient had breast cancer screening on 06/11/2023 which revealed left benign breast calcifications recommending repeat in 1 year. Referral for repeat mammogram ordered at this time. Will continue to monitor. (8) Anorexia: Code(s): R63.0 - Anorexia Category: Medical Plan: Patient going through a divorce. She has gained approximately 12 lb and is currently taking multivitamin, vitamin B6. Condition is stable. Will continue to monitor. (9) Lumbar degenerative disc disease: Code(s): M51.36 - Other intervertebral disc degeneration, lumbar region Category: Medical Plan: History of lumbar degenerative disc disease. Patient denies any complaints today. Condition is stable. Will continue to monitor. (10) Vitamin D deficiency: Code(s): E55.9 - Vitamin D deficiency, unspecified Category: Medical Plan: Patient currently on vitamin-D supplements. Condition is stable. Will continue to monitor. (11) Nephrolithiasis: Comment: Right ureteroscopy 2019 Code(s): N20.0 - Calculus of kidney Category: Medical Plan: Patient with history of nephrolithiasis. On exam there is no obvious CVA tenderness. Will start on Macrobid and sent for bilateral renal ultrasound and reassess pending ultrasound. Condition is stable. (12) Benign essential hypertension: Code(s): I10 - Essential (primary) hypertension Category: Medical Plan: Patient's blood pressure at 110/60 which is controlled today. She is currently on amlodipine taking as prescribed. Condition is stable. Will continue to monitor. (13) Horseshoe kidney: Code(s): Q63.1 - Lobulated, fused and horseshoe kidney Category: Medical Plan: This is chronic. Condition is stable. Will continue to monitor. (14) Anxiety: Code(s): F41.9 - Anxiety disorder, unspecified Category: Medical Plan: This is chronic. Patient denies any acute anxiety. Condition is stable. Will continue to monitor. Plan Plan - Conduct urine culture for infection identification. - Prescribe MacroBid for suspected urinary tract infection and evaluate based on culture results. - Prescribe Pyridium for urinary discomfort. - Schedule outpatient renal ultrasound to assess for any nephrolithiasis. - Discuss scheduling mammogram for monitoring benign breast calcifications. - Consider Cologuard for colorectal cancer screening in view of age-appropriate screening protocols. - Patient to speak to PCP about Re-submit Wegovy prescription and explore availability with pharmacy. - Monitor for any yeast infection post-antibiotics and provide Diflucan as prophylactic measure. - Facilitate pap smear during follow-up with primary physician. Orders: Orders Bacterial Vaginosis Panel Today Karie Mauro PA-C N89.8 - Other specified noninflammatory disorders of vagina Trichomonas Prep Today Karie Mauro PA-C N89.8 - Other specified noninflammatory disorders of vagina AMB Urinalysis Dipstick Today Brody Del Cid MD Z13.9 - Encounter for screening, unspecified UA CC w/rflx Micro + Cult Today Karie Mauro PA-C N89.8 - Other specified noninflammatory disorders of vagina, R30.0 - Dysuria US renal BI Today Karie Mauro PA-C M54.9 - Dorsalgia, unspecified, Z87.442 - Personal history of urinary calculi MM screening mammo BI Today Karie Mauro PA-C Z12.31 - Encounter for screening mammogram for malignant neoplasm of breast Referrals Cologuard Test Karie Mauro PA-C Z12.11 - Encounter for screening for malignant neoplasm of colon, Z12.12 - Encounter for screening for malignant neoplasm of rectum Medications: New nitrofurantoin monohyd/m-cryst 100 mg (Macrobid) must administer with a meal/food 100 mg PO BID 14 caps 0RF uti 7 days Karie Mauro PA-C fluconazole 150 mg PO Q3D 2 tabs 0RF 2 doses Karie Mauro PA-C phenazopyridine (Pyridium) 100 mg PO TID PRN 30 tabs 1RF pain 6 doses Karie Maruo PA-C Patient Instructions: Patient Instructions - Continue taking prescribed medications as directed and complete the antibiotic course. - Schedule and attend outpatient renal ultrasound ordered today. - Monitor for signs of yeast infection after antibiotic treatment; take Diflucan as directed if needed. - Follow-up with primary care physician for pap smear. - Mammogram referral placed today. - Engage in colorectal cancer screening with Cologuard as discussed. Cologuard ordered. - Arrange follow-up visit in two to three weeks with your primary physician to review Wegovy prescription status and ongoing health concerns. - Maintain hydration and report any worsening of symptoms to the clinic. Scribe Plan - Not visible on output: History of Present Illness The patient is a 43-year-old female presenting with right-sided lower back pain and urinary symptoms. Three days ago, she started experiencing discomfort in the lower back, primarily on the right side, described as a pressure-like sensation. Accompanying this, she has noted increased frequency of urination and once observed a minimal amount of red staining in her urine, prior to starting Pyridium, which has since been absent. She denies fever but feels slightly unwell. She reports recent weight changes attributed to personal life stressors, including filing for divorce. A history of nephrolithiasis is noted, with a past ultrasound in December revealing no calculi. Past episodes required emergency room visits for severe pain management. She is currently not experiencing fever, significant systemic illness signs, or signs of sexually transmitted infections, although she reports a creamy vaginal discharge potentially linked to recent changes in hygiene products. Social History - The patient is experiencing significant life stress due to a separation from her , which has impacted her weight. - Previously lost weight due to this stress but has since gained back approximately 12 pounds. - Patient has not referred to any SPECIAL EVENTS COORDINATOR for pap smears and utilizes her primary physician for these screenings. - Patient has been vaccinated for flu and COVID-19 due to job requirements. Review of Systems - Urinary System: Reports increased frequency, right-sided discomfort, and an episode of red urine; Denies current hematuria or dysuria. - General: Denies fever; Feels slightly unwell. - Gastrointestinal: Denies nausea, vomiting, or diarrhea. - Reproductive System: Reports a creamy discharge; Denies irritation, itching, or odor. Physical Exam Appearance: Alert. Oriented X3. No acute distress. Head: Normal external exam. Normocephalic. Atraumatic. Eyes: Pupils are equal, round, and reactive to light. Extraocular movements intact. Conjunctiva and sclera normal. Eyelids normal. Ears: External auditory canal normal. Tympanic membranes normal. Throat: Pharynx normal. Uvula midline. Moist mucous membranes. Neck: Normal inspection. Neck supple. Full range of motion. No adenopathy. Thyroid Normal. No meningeal signs. No neck mass noted. Cardiovascular: Normal heart rate and rhythm. Heart sound normal. No murmurs noted. Pulses normal throughout. Respiratory: No respiratory distress. Painless inspiration. Breath sounds normal. No wheezes/rales/rhonchi noted. Chest nontender. No accessory muscle usage noted or decreased air movement noted. Abdomen: Soft and mild TTP to rlq/suprapubic area. Bowel sounds normal in all 4 quadrants. No distention noted. No organomegaly noted. No visible injury noted. Negative Juárez sign. Negative Rovsing sign. Negative psoas sign. Negative obturator's sign. Back: Tenderness noted on the right side of the lower back. Skin: Skin warm and dry. Normal skin color. Normal skin turgor. No rashes/lesions/lacerations noted. Extremities: Extremities exhibit normal range of motion. Extremities nontender. Neuro: Oriented X 3. No motor deficit. No sensory deficit. Reflexes normal. Results - Labs: Urine analysis positive for nitrates and leukocytes. - Imaging: Previous ultrasound (December) showed no kidney stones. Plan - Conduct urine culture for infection identification. - Prescribe MacroBid for suspected urinary tract infection and evaluate based on culture results. - Prescribe Pyridium for urinary discomfort. - Schedule outpatient renal ultrasound to assess for any nephrolithiasis. - Discuss scheduling mammogram for monitoring benign breast calcifications. - Consider Cologuard for colorectal cancer screening in view of age-appropriate screening protocols. - Patient to speak to PCP about Re-submit Wegovy prescription and explore availability with pharmacy. - Monitor for any yeast infection post-antibiotics and provide Diflucan as prophylactic measure. - Facilitate pap smear during follow-up with primary physician. Patient was informed and verbally consented to the use of an ambient scribe for clinic note documentation during this visit. Discussion Notes I discussed with the patient the likely diagnosis of a urinary tract infection causing the right-sided lower back pain. I explained the need for the renal ultrasound to exclude kidney stones. We addressed her worries about breast calcifications and affirmed their benign nature, with a plan for routine mammography monitoring. We discussed colorectal cancer screening options, with Cologuard being a non-invasive alternative to colonoscopy. I reassured the patient that the insurance delay in obtaining Wegovy is not unusual. I recommended following up with her primary physician to reassess the prescription. I advised on monitoring for post-antibiotic yeast infection and explained the necessity of completing urinary diagnostics and treatments effectively.
[2024-03-13 15:13] VITALS: BP 110/60; PULSE 80; O2SAT 97; BMI 29.5
== END 2024-03-13 15:58 | disposition home or self-care (01) ==
LOC: HO.HMCH 14:54
PROVIDERS: PCP Internal Medicine; Visit Provider Internal Medicine
DX: Z13.9 Encounter for screening, unspecified (principal)

== ENCOUNTER 2024-03-14 14:23 | Outpatient (REF) | payer OTHER, SELFPAY ==
--- NOTE | ~2024-03-14 | US_ITS ---
EXAMINATION: US KIDNEY BILATERAL HISTORY: M54.9 - Dorsalgia, unspecified TECHNIQUE: Real-time grayscale ultrasound imaging of the kidneys was performed and images were reviewed. COMPARISON: Comparison is made with the prior examination dated 12/12/2023. FINDINGS: There is a horseshoe kidney. Right kidney: The right renal moiety measures 10.2 x 5.2 x 4.7 cm. Renal parenchymal echotexture and thickness are normal. There are no masses. There is a 4 mm nonobstructing upper pole calculus. There is no hydronephrosis. Left Kidney: The left renal moiety measures 10.7 x 4.5 x 3.8 cm. Renal parenchymal echotexture and thickness are normal. There are no masses. No renal calculi are identified. There is a probable extrarenal pelvis. There is no hydronephrosis. US/US renal BI IMPRESSION: Horseshoe kidney. 4 mm nonobstructing calculus at the upper pole of the right renal moiety. No hydronephrosis. Electronically signed by: Ole Howell MD 03/14/2024 03:33 PM EST
== END 2024-03-14 14:24 | disposition home or self-care (01) ==
LOC: HO.US 14:23
PROVIDERS: PCP Internal Medicine; Referring Provider Urology; Visit Provider Physician Assistant Medical
DX: M54.9 Dorsalgia, unspecified (principal); Z87.442 Personal history of urinary calculi
CPT/HCPCS: 76775

== ENCOUNTER → 2024-03-14 14:30 | Outpatient (BNV) | payer OTHER, SELFPAY | PROVIDERS: PCP Internal Medicine; Referring Provider Urology; Visit Provider Radiology Diagnostic Radiology | DX: N20.0 Calculus of kidney (principal) | CPT/HCPCS: 76775 ==

== ENCOUNTER 2024-05-02 14:37 | Outpatient (AMB) | payer OTHER, SELFPAY ==
[2024-05-02 14:42] VITALS: BP 122/80; PULSE 69; O2SAT 98; BMI 29.2
--- NOTE | 2024-05-02 14:42 | A.OFFPC_ITS ---
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: No Accompanied by: Self / Same As Patient Allergies celecoxib [From Celebrex] Allergy (Intermediate, Verified 05/04/24 13:08) Itching metronidazole Allergy (Unknown, Verified 05/04/24 13:08) Rash sertraline [Zoloft] Allergy (Unknown, Verified 05/04/24 13:08) Itching sulfamethoxazole [From BACTRIM] Allergy (Unknown, Verified 05/04/24 13:08) Itching trimethoprim [From BACTRIM] Allergy (Unknown, Verified 05/04/24 13:08) Itching naproxen [From Naprosyn] Allergy (Verified 05/04/24 13:08) Itching venlafaxine [From Effexor] Allergy (Verified 05/04/24 13:08) Itching tramadol Adverse Reaction (Intermediate, Verified 05/04/24 13:08) Nausea alprazolam [From XANAX] Adverse Reaction (Mild, Verified 05/04/24 13:08) Confusion Sulfa (Sulfonamide Antibiotics) Adverse Reaction (Unknown, Verified 05/04/24 13:08) yeast infection Medication List - Last Reconciled 05/04/24 by Elier Olmstead MD [1 03/10 in heel lift As directed] amlodipine 5 mg PO DAILY 90 days bupropion HCl XL 150 mg PO QAM 30 days diclofenac sodium 75 mg PO BID PRN 30 days ibuprofen 800 mg PO DAILY PRN ketorolac 10 mg PO Q8H lorazepam 0.5 mg PO TID PRN 30 days multivitamin (Multiple Vitamins tablet) 1 tab PO DAILY 90 days off loading boot (Aircast off loading boot) As directed ondansetron HCl 4 mg PO Q8H pyridoxine (vitamin B6) 50 mg PO DAILY 90 days semaglutide (weight loss) 1 mg (0.5 mL) subcut QWEEK 4 weeks tamsulosin (Flomax) 0.4 mg PO DAILY 2 weeks Tobacco use date assessed: 05/02/24 Dental Screening Dental Screen Date: 02/26/25 HPI 4 week f/u HPI Details Patient comes in today for her follow up visit She was seen here last month for acute urinary symptoms and a few other issues States that her urinary symptoms have all cleared up with the Abx Tx that she was given last month Relates that she has not had a pap smear done in over a year now and would like to know when she can get this scheduled Adds that she has been having some persistent vaginal bleeding lately and would like to know what she needs to do to get this checked out further - 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 as she normally just comes to see me for her annual physical and her pap smear States that her insurance will not cover her Wegovy Rx for weight loss but she is under the impression that they will cover Ozempic instead She denies any headaches or dizziness Denies any chest pains, no increased SOB No nausea/vomiting, no abdominal pain No change in bowel habits noted [facility] Medical History (Updated 05/04/24 @ 13:28 by Elier Olmstead MD) Breast cancer screening by mammogram (~06/11/23) HPV (human papilloma virus) infection Renal calculi Pyelonephritis Lumbar degenerative disc disease Horseshoe kidney Anxiety Obesity (BMI 30-39.9) Benign essential hypertension Gestational HTN Surgical History History of extraction of renal calculus Back pain with history of spinal surgery H/O wrist surgery Family History Father HIV (human immunodeficiency virus infection) Mother CVD (cardiovascular disease) Maternal Grandmother Breast cancer Diabetes Hypertension Maternal Grandfather Prostate cancer Paternal Grandmother CVD (cardiovascular disease) Paternal Grandfather Prostate cancer Sister In good health CHF (congestive heart failure) Son In good health Social History Household Members: Spouse Housing: Apartment Are you a primary healthcare marketer to a significant other at home: No Do you presently have visiting nurse or other home services: No Alcohol intake: never Patient Tobacco Use Status: Never used Tobacco e-Cigarette/Vaping Use: Never Used Second Hand Smoke Exposure: No service: No (HPD) Current occupational status: employed Cognitive needs: No Hearing needs: No Vision needs: No Questionnaire PHQ-9 Over the last 2 weeks, how often have you been bothered by any of the following problems? 1. Little interest or pleasure in doing things: not at all 2. Feeling down, depressed, or hopeless: not at all 3. Trouble falling or staying asleep, or sleeping too much: not at all 4. Feeling tired or having little energy: not at all 5. Poor appetite or overeating: not at all 6. Feeling bad about yourself - or that you are a failure or have let yourself or your family down: not at all 7. Trouble concentrating on things, such as reading the newspaper or watching television: not at all 8. Moving or speaking so slowly that other people could have noticed. Or the opposite - being so fidgety or restless that you have been moving around a lot more than usual: not at all 9. Thoughts that you would be better off or of hurting yourself in some way: not at all Total score: 0 Depression Screening Interpretation: Negative Depression Screening Done: Yes 33877 - PHQ-9 Billing: Yes Source: Developed by Drs. Ole Ovalle, Jazzy Andrade, Sergio Lucio and colleagues, with an educational alex from [employer]. Thrive Questionnaire Date Thrive assessed: 05/02/24 I am a: Patient What is your living situation today?: I have a steady place to live Within the past 12 months, did the food you bought not last and you didn't have the money to get more?: Never true Within the past 12 months, did you worry whether your food would run out before you got money to buy more?: Never true Do you have trouble paying for medicines?: No Do you have trouble getting transportation to medical appointments?: No Do you have trouble paying your heating and electricity bill?: No Do you have trouble taking care of your child, family member or friend?: No Do you have trouble with day-to-day activities such as bathing, preparing meals, shopping, managing finances, etc.?: No Are you currently unemployed and looking for a job?: No Are you interested in more education?: No Please select the resources that you would like help with: None Currently or been in a relationship where the following occur: No concerns reported THRIVE Score: 0 AUDIT C Alcohol Use Questionnaire (AUDIT-C) 1. How often do you have a drink containing alcohol?: Monthly or less 2. How many drinks containing alcohol do you have on a typical day when you are drinking?: 1 or 2 3. How often do you have six or more drinks on one occasion?: Never Total Score: 1 Score Reviewed/Action Taken: Yes EMMY-7 AMB Questionnaire EMMY-7 Date EMMY - 7 assessed: 05/02/24 Feeling nervous, anxious, or on edge: 0 = Not at all Not being able to stop or control worryin = Not at all Worrying too much about different things: 0 = Not at all Trouble relaxin = Not at all Being so restless that it is hard to sit still: 0 = Not at all Becoming easily annoyed or irritable: 0 = Not at all Feeling afraid as if something awful might happen: 0 = Not at all Total EMMY-7 score (0-4 normal; 5-9 mild; 10-14 moderate; 15-21 severe): 0 Source: Developed by Drs. Ole Ovalle, Jazzy Andrade, Sergio Lucio and colleagues, with an educational alex from [employer]. Review of Systems Const Denies chills, Denies fatigue, Denies fever(s) and Denies headache(s) ENT Denies dysphagia, Denies dizziness, Denies otalgia, Denies headache(s), Denies neck pain, Denies odynophagia and Denies sore throat Card Denies chest pain, Denies palpitations and Denies dyspnea Resp Denies chest congestion, Denies cough and Denies dyspnea GI Denies abdominal pain, Denies constipation, Denies dysphagia, Denies diarrhea, Denies nausea, Denies odynophagia and Denies vomiting Details: c/o persistent vaginal bleeding lately Musc Reports back pain (on and off, over the lower back), Denies arthralgias and Denies neck pain Skin/Breast Denies rash Neuro Denies dizziness and Denies headache(s) Psych Reports anxiety Endo Denies fatigue and Denies palpitations Physical exam (Primary Care) Vital Signs: Last Vital Signs Pulse 69 05/02/24 14:42 BP 122/80 05/02/24 14:42 Pulse Ox 98 05/02/24 14:42 Oxygen Delivery Method Room Air 05/02/24 14:42 BMI result Body Mass Index 29.2 Tobacco/Smoking Status: Tobacco use Status Tobacco use date assessed 05/02/24 05/02/24 14:47 Patient Tobacco Use Status Never used Tobacco 05/02/24 14:44 e-Cigarette/Vaping Use Never Used 05/02/24 14:44 PHQ-9: PHQ-9 Score PHQ-9: Total score 0 05/04/24 12:46 Depression Screening Interpretation: Negative Thrive Assessment: Date of Thrive Assessment Date Thrive assessed 05/02/24 05/02/24 14:47 Currently or been in a relationship where the following occur: No concerns reported Const General: no acute distress and alert HENMT Ears: TM's normal bilaterally and EAC's normal Throat: Yes posterior oropharynx normal and Yes tonsils normal (no TP congestio n) Neck Neck: Yes supple and No lymphadenopathy Thyroid: Thyroid normal Resp Auscultation: clear to auscultation bilaterally, no rales and no wheezes Cardio Rate: regular rate Rhythm: regular rhythm Heart sounds: no murmurs GI Palpation (GI): Soft to palpation and nontender Auscultation: normal bowel sounds General: Yes no CVA tenderness Back/Spine/Pelvis Back: no CVA tenderness Thoracic/Lumbar Spine: lumbar spinal tenderness (mild) Skin Rashes: no rashes Extrem General: Yes no clubbing, cyanosis or edema Coding Level of Care Code Est Pt Level 4 (82580) Diagnoses Abnormal vaginal bleeding N93.9 Benign essential hypertension I10 Degeneration of intervertebral disc of lumbar region with discogenic back pain M51.360 Disc-related pain type: discogenic back pain only Vitamin D deficiency E55.9 Horseshoe kidney Q63.1 Recurrent kidney stones N20.0 Anxiety F41.9 Obesity (BMI 30-39.9) E66.9 Additional Codes PHQ-9 - 00144 - PHQ-9 Billing: Yes ([id number]) Assessment & Plan Assessment & Plan (1) Abnormal vaginal bleeding: Code(s): N93.9 - Abnormal uterine and vaginal bleeding, unspecified Category: Medical Plan: Will send patient for a pelvic US ANKITA for further evaluation (2) Benign essential hypertension: Code(s): I10 - Essential (primary) hypertension Category: Medical Plan: Reinforced low sodium diet - goal is systolic BP of 120 mm or less Continue Amlodipine 5 mg QD (3) Lumbar degenerative disc disease: Code(s): M51.36 - Other intervertebral disc degeneration, lumbar region Category: Medical Qualifiers: Disc-related pain type: discogenic back pain only Qualified Code(s): M51.360 - Other intervertebral disc degeneration, lumbar region with discogenic back pain only Plan: Reinforced activity and weight-lifting restrictions Continue Ibuprofen 800 mg TID PRN with food or Acetaminophen PRN (4) Vitamin D deficiency: Code(s): E55.9 - Vitamin D deficiency, unspecified Category: Medical Plan: She was taking Vitamin D3 2000 units QD in the past but is currently only taking Multivitamins daily (5) Horseshoe kidney: Code(s): Q63.1 - Lobulated, fused and horseshoe kidney Category: Medical Plan: Patient is reminded of the potential concerns with horseshoe kidneys and the importance of regular follow up appointments with urology for monitoring and surveillance (6) Recurrent kidney stones: Comment: Calcium oxalate and calcium phosphate Code(s): N20.0 - Calculus of kidney Category: Medical Plan: She is again encouraged to continue to increase her oral fluid intake regularly Follow up with urology as scheduled (7) Anxiety: Code(s): F41.9 - Anxiety disorder, unspecified Category: Medical Plan: Continue Lorazepam 0.5 mg TID PRN and Bupropion XL 150 mg QD (8) Obesity (BMI 30-39.9): Code(s): E66.9 - Obesity, unspecified Category: Medical Plan: Reinforced diet/exercise as tolerated/lose weight Will try sending in Rx for Semaglutide 1 mg SQ once a week to help her with weight loss as her insurance will not cover her previous Wegovy Rx any longer Plan Follow up in 4 months Patient is also advised to speak with front office about scheduling her for her pap smear as soon as possible Orders: Orders US pelvic complete 05/02/24 N93.9 - Abnormal uterine and vaginal bleeding, unspecified Medications: Changed From semaglutide (weight loss) (Wegovy) administer weeks 9 through 12 of therapy 1 mg (0.5 mL) subcut QWEEK 2 mL 1RF 4 weeks To semaglutide (weight loss) for 4 weeks 1 mg (0.5 mL) subcut QWEEK 2 mL 0RF 4 weeks
--- OUTSIDE RECORDS SUMMARY | 2024-05-02 18:02 | XMS_ITS | Data Portability ---
Author Organization [facility] Myles [facility], [address] Address [address] [place] [address] Care Team Providers Care Crepe Box Tender Name Role Phone [facility] Primary Care Provider [phone] Assessment No assessment recorded. Plan of Treatment Reminders Order Date Submit Date Provider Last Modified By Organization Details Last Modified Time Details Appointments None recorded. Lab None recorded. Referral None recorded. Procedures None recorded. Surgeries None recorded. Imaging None recorded. Medication Orders valacyclovi r 1 gram tablet 2023 024 [facility], [address], [place], [id number], 4 09:44:53 prednisone 20 mg tablet 2022 023 [facility] #08373, [address], [place], [id number], 3 11:50:14 Allergy Relief (fluticason e) 50 mcg/actuati on nasal spray,suspe nsion 2022 023 [facility] #26345, [address], [place], [id number], 3 11:50:14 fexofenadin e-pseudoeph edrine ER 180 mg-240 mg tablet,ext. release 24 hr 2022 023 [facility]80001, [address], [place], [id number], 11:50:13 Patient TargetsNo targets recorded. Patient Instructions Encounter Date Encounter Id Patient Instructions Last Modified By Organization Details Last Modified Time 08/05/2022 [id number] earache: care instructions [email or web address] Not available 08/05/2022 11:50:05 ear infection (otitis media): care instructions Not available 08/05/2022 11:50:05 Sinusitis is an infection of the lining of the sinus cavities in your head. Sinusitis often follows a cold. It causes pain and pressure in your head and face. In most cases, sinusitis gets better on its own in 1 to 2 weeks. But some mild symptoms may last for several weeks. Sometimes antibiotics are needed. if you are having problems. It's also a good idea to know your test results and keep a list of the medicines you take. How can you care for yourself at home? Take an ubwu-bes-hqnhlgp pain medicine. Avoid Ibuprofen, Aleve and Aspirin if . If the doctor prescribed antibiotics, take them as directed. Do not stop taking them just because you feel better. You need to take the full course of antibiotics. Be careful when taking pzfe-vei-coasqwl cold or influenza (flu) medicines and Tylenol at the same time. Many of these medicines have acetaminophen, which is Tylenol. Read the labels to make sure that you are not taking more than the recommended dose. Too much acetaminophen (Tylenol) can be harmful. Breathe warm, moist air from a steamy shower, a hot bath, or a sink filled with hot water. Avoid cold, dry air. Using a humidifier in your home may help. Follow the directions for cleaning the machine. Use saline (saltwater) nasal washes. This can help keep your nasal passages open and wash out mucus and bacteria. You can buy saline nose drops at a grocery store or drugstore. Or you can make your own at home by adding 1 teaspoon (5 millilitres) of salt and 1 teaspoon (5 millilitres) of baking soda to 2 cups (500 mL) of distilled water. If you make your own, fill a bulb syringe with the solution, insert the tip into your nostril, and squeeze gently. Blow your nose. Put a hot, wet towel or a warm gel pack on your face 3 or 4 times a day for 5 to 10 minutes each time. Try a decongestant nasal spray like oxymetazoline (Drixoral). Do not use it for more than 3 days in a row. Using it for more than 3 days can make your congestion worse. Not available 08/05/2022 11:50:00 04/26/2023 [id number] cold sores: care instructions [email or web address] Not available 04/26/2023 09:44:46 Reason for Referral None Reported. Problems Name Problem SNOMED Code Status Onset Date Resolution Date Notes Provider Name and Address Organization Details Recorded Time Hypertensive disorder 32331533 Active CARMELA MEDEL RA null, PA - [facility] 3 11:27:17 History of urinary stone 390911901 Active 2022 CARMELA DIA-KURTIS RA null, PA - [facility] 3 11:28:11 Problem Notes None recorded. Procedures Surgical History Date Name Laterality Status Provider Name and Address Organization Details Recorded Time procedure on back completed CARMELA LIRA PA - [facility] 08/05/2022 11:27:28 Imaging Results None recorded. Procedure Notes None recorded. Medical Equipment None Reported. Allergies Allergen ID Allergen Name Allergen Category Reaction Reaction Severity Criticality Documentation Date Start Date Code Code System Note Provider Name and Address Organization Details Recorded Time 036669 Celebrex medicatio n itching Not available Not available 08/05/2022 06395 7 RxNorm CARMELA DIA-ZAIRAE RA null, PA - [facility] 3 11:24:58 411229 Effexor medicatio n Not available Not available Not available 08/05/2022 32671 2 RxNorm CARMELA DIA-RIVE RA null, PA - [facility] 3 11:25:05 892096 Zoloft medicatio n itching Not available Not available 08/05/2022 63807 RxNorm CARMELA DIA-RIVE RA null, PA - [facility] 3 11:25:14 731742 Bactrim medicatio n other Not available Not available 08/05/2022 17111 9 RxNorm CARMELA DIA-RIVE RA null, PA - [facility] 3 11:25:25 Medications Name Sig Start Date Stop Date Status Note LastModified by Organization Details LastModified Time amoxicillin 500 mg capsule TAKE 1 CAPSULE BY MOUTH EVERY 8 HOURS FOR 7 DAYS active Not Available Not Available No t Available cefuroxime axetil 250 mg tablet TAKE 1 TABLET BY MOUTH TWICE DAILY FOR 10 DAYS 08/05 completed Not Available Not Available Not Available ibuprofen 800 mg tablet TAKE 1 TABLET BY MOUTH THREE TIMES DAILY WITH FOOD NEEDED FOR PAIN active Not Available Not Available No t Available tizanidine 4 mg tablet TAKE 1 TABLET BY MOUTH EVERY 8 HOURS NEEDED FOR MUSCLE SPASMS OR BACK PAIN 08/05 completed Not Available Not Available Not Available fluconazole 150 mg tablet TAKE 1 TABLET BY MOUTH EVERY 3 DAYS FOR 2 DOSES 08/05 completed Not Available Not Available Not Available valacyclovi r 1 gram tablet Take 2 tablets every 12 hours by oral route for 1 day. 2023 active Not Available Not Available Not Avai lable prednisone 20 mg tablet Take 2 tablets every day by oral route in the morning for 3 days. 2022 active Not Available Not Available Not Avai lable pimecrolimu s 1 % topical cream APPLY THIN LAYER TWICE DAILY TO AFFECTED AREAS ON THE FACE 08/05 completed Not Available Not Available Not Available metronidazo le 500 mg tablet TAKE 1 TABLET BY MOUTH TWICE DAILY FOR 7 DAYS 08/05 completed Not Available Not Available Not Available amlodipine 5 mg tablet TAKE 1 TABLET BY MOUTH DAILY active Not Available Not Available No t Available allopurinol 100 mg tablet TAKE 1 TABLET BY MOUTH DAILY 08/05 completed Not Available Not Available Not Available tramadol 50 mg tablet TAKE 1 TABLET BY MOUTH EVERY 8 HOURS NEEDED FOR PAIN 08/05 completed Not Available Not Available Not Available hydrocortis one 2.5 % topical cream with perineal applicator APPLY RECTALLY TO THE AFFECTED AREA 2 TO 4 TIMES A DAY NEEDED FOR HEMORRHOI DS 08/05 completed Not Available Not Available Not Available phenazopyri dine 100 mg tablet TAKE 1 TABLET BY MOUTH THREE TIMES DAILY NEEDED FOR SPASMS FOR 4 DAYS 08/05 completed Not Available Not Available Not Available doxycycline monohydrate 100 mg capsule TAKE ONE CAPSULE BY MOUTH TWICE DAILY WITH FOOD. PROTECT SKIN FROM SUN 08/05 completed Not Available Not Available Not Available lidocaine 5 % topical patch active Not Available Not Available Not Available pyridoxine (vitamin B6) 100 mg tablet TAKE 1 TABLET BY MOUTH DAILY active Not Available Not Available No t Available levofloxaci n 500 mg tablet TAKE 1 TABLET BY MOUTH DAILY 08/05 completed Not Available Not Available Not Available Ativan 0.5 mg tablet Take 2 tablets 3 times a day by oral route. active Not Available Not Available No t Available morphine 15 mg immediate release tablet TAKE 1 TABLET BY MOUTH THREE TIMES DAILY NEEDED FOR PAIN 08/05 completed Not Available Not Available Not Available ondansetron 4 mg disintegrat ing tablet DISSOLVE 1 TABLET ON THE TONGUE EVERY 8 HOURS NEEDED FOR NAUSEA OR VOMITING 08/05 completed Not Available Not Available Not Available oxycodone 5 mg tablet TAKE 1 TABLET BY MOUTH EVERY 8 HOURS NEEDED FOR SEVERE PAIN 08/05 completed Not Available Not Available Not Available fexofenadin e-pseudoeph edrine ER 180 mg-240 mg tablet,ext. release 24 hr Take 1 tablet every day by oral route in the evening for 10 days. 2022 active Not Available Not Available Not Avai lable Motrin active Not Available Not Availa ble Not Available Allergy Relief (fluticason e) 50 mcg/actuati on nasal spray,suspe nsion [place] 1 spray every day by intranasa l route as directed for 30 days. 2022 active Not Available Not Available Not Avai lable Ozempic active Not Available Not Avail able Not Available Vitals Date Recorded Body height Body mass index (BMI) Body weight Pain severity - 0-10 verbal numeric rating [Score] - Reported Respiratory rate Oxygen saturation Oxygen saturation in Arterial blood by Pulse oximetry Heart rate Body temperature Systolic blood pressure Diastolic blood pressure Provider Name and Address Organization Details Last Updated DateTime 3 167.64 cm 29.7 kg/m2 00742 g 8 18 /min 100 % 100 % 70 /min 97.8 [degF] 118 mm[Hg] 80 mm[Hg] CARMELA MEDEL RA PA - [facility] 3 11:24:05 Date Recorded Body height Body mass index (BMI) Body weight Oxygen saturation Oxygen saturation in Arterial blood by Pulse oximetry Heart rate Respiratory rate Body temperature Systolic blood pressure Diastolic blood pressure Provider Name and Address Organization Details Last Updated DateTime 4 167.64 cm 27.4 kg/m2 00500.7 g 99 % 99 % 81 /min 18 /min 97.1 [degF] 109 mm[Hg] 78 mm[Hg] Tanesha WILLIAMSON - [facility] 4 09:41:34 Social History Question Answer Notes LastModified by Organizat ion Details LastModified Time Tobacco Smoking Status Never Smoker [facility] 08/05/2022 11:29:19 What Is Your Level Of Alcohol Consumption? Occasional Information not available 08/05/2022 Have You Had Direct Contact, Or Contact During Intimacy, With Monkeypox Rash, Scabs, Or Body Fluids From A Person With Monkeypox? No Information not available 08/05/2022 Do You Use Any Illicit Or Recreational Drugs? No Information not available 08/05/2022 Have You Recently Traveled Abroad? No Information not available 08/05/2022 Do You Or Have You Ever Used Any Other Forms Of Tobacco Or Nicotine? No Information not available 08/05/2022 Sex: Unknown Functional Status None recorded. Mental Status None recorded. Family History Relationship Description Onset Age of this Age Resolved Age Notes LastModified by Organization Details LastModified Time Mother Myocardial infarction 58 Not available 11:28:34 Sister Hypertensive disorder Not available 03/2022 11:28:42 Sister Congestive heart failure Not available 03/2022 11:28:50 Unspecified Relation Hypercholest erolemia Not available 03/2022 11:29:00 Medical History No medical history recorded. Gynecological History Statement/Question Response Date of LMP 04/04/2023 Is there any chance of ? No LMP Approximate Obstetrics History GPAL:G 0 P 0 0 0 0 Immunizations Vaccine Type Date Status Note Provider Nam e and Address Organization Details Recorded Time COVID-19, mRNA, LNP-S, PF, 30 mcg/0.3 mL dose 11/21/2020 completed CLAY [facility] 08/05/2022 11:24:30 COVID-19, mRNA, LNP-S, PF, 30 mcg/0.3 mL dose 12/12/2020 completed CARMELA LIRA null, PA - [facility] 08/05/2022 11:24:30 Tdap 04/15/2017 completed CARMELA LIRA null, PA - [facility] 08/05/2022 11:24:30 Tdap 12/26/2013 completed CARMELA LIRA null, PA - [facility] 08/05/2022 11:24:30 Influenza, split virus, quadrivalent, PF 12/04/2019 completed CARMELA renae, PA - [facility] 08/05/2022 11:24:30 Past Encounters Encounter ID Performer Location Encounter Start Date Encounter Closed Date Diagnosis/Indication Diagnosis SNOMED-CT Code Diagnosis ICD10 Code Diagnosis Note [id number] [address] [place] [address] 12/21/2019 09:07:36 12/21/2019 10:41:02 [id number] Yonis Barber [place] [address] [place] [address] 08/05/2022 09:00:43 08/05/2022 11:51:15 Acute sinusitis 16896132 J01.90 [id number] CLAY Connors [address] [place] [address] 04/26/2023 09:15:10 04/26/2023 09:47:22 Herpes labialis 2362907 B00.1 You have been diagnosed with a cold sore. This is contagious - do not share drinks, lip balms, or kiss other. The antiviral medication will help these heal. Continue to use OTC antiviral medication s like Abreva. Return if you develop any signs of infection: 1. Increased lip swell2. Discharge from the Lip3. Increased Pain Don't Hesitate to call [facility] if you have any questions or concerns. Thank you for visiting us again Health Concerns Section Related Observation LastModified by Organization Isela saldana LastModified Time None Recorded Concern Status LastModified by Organization Details LastModified Time None Recorded Advance Directives Directive None Recorded Payers Encounter Date Sequence Insurance Name Policy Number Policy Rodriguez Covered Member ID Rodriguez Member ID Guarantor Name 12/21/2019 1 [employer] [place] [id number] [place] [employer] [id number] [place] [employer] 08/05/2022 1 [employer] [id number] [id number] [facility] 04/26/2023 1 [facility] [id number] 23 [facility] [id number] [facility] Notes Date Note Type Note Provider Name and Address Organization Details Recorded Time 08/05/2022 text/html CongestionReport ed bypatient.Notes:nasal congestion with post nasal drip x 3 days. denies nay fever or fever with chills. no SOB or respiratory distress.Ear Pain Brief HPIReported bypatient.Location:pain radiates to neck; bilateral Onset/Timing:intermitte nt pain; gradual onset Duration:occurs daily; sensation/episode variable length Quality:aching pain;sharp pain Severity:getting worse; current pain 5/10 Context:recent ear infection Alleviating factors:ototopical antibiotics: ; nasal steroid spray Aggravating factors:sinus infections; allergies; irrigation of ear Associated Symptoms:Cough;nasal congestion;nasal discharge Yonis Barber NP [address] [place], [address], PA - [facility] 08/05/2022 11:50:27 04/26/2023 text/html 43 y/o female he re with blisters on her lips for the past few days, worsening. Has been very stressed recently. Has had cold sores in the past CLAY Connors [address] [place], [address], PA - [facility] 04/26/2023 09:50:29 OBGyn Episode No OBEpisode recorded.
== END 2024-05-02 15:45 | disposition home or self-care (01) ==
PROVIDERS: PCP Internal Medicine; Visit Provider Internal Medicine
DX: I10 Essential (primary) hypertension (principal); N93.9 Abnormal uterine and vaginal bleeding, unspecified; E66.9 Obesity, unspecified; Z68.29 Body mass index [BMI] 29.0-29.9, adult; M51.360 Other intervertebral disc degeneration, lumbar region with discogenic back pain only; E55.9 Vitamin D deficiency, unspecified; Q63.1 Lobulated, fused and horseshoe kidney; N20.0 Calculus of kidney; F41.9 Anxiety disorder, unspecified

== ENCOUNTER → 2024-05-02 14:37 | Outpatient (BNVA) | payer OTHER, SELFPAY | PROVIDERS: PCP Internal Medicine; Visit Provider Internal Medicine | DX: N93.9 Abnormal uterine and vaginal bleeding, unspecified (principal); I10 Essential (primary) hypertension; M51.360 Other intervertebral disc degeneration, lumbar region with discogenic back pain only; E55.9 Vitamin D deficiency, unspecified; N20.0 Calculus of kidney; F41.9 Anxiety disorder, unspecified; E66.9 Obesity, unspecified; Z68.29 Body mass index [BMI] 29.0-29.9, adult; Q63.1 Lobulated, fused and horseshoe kidney; Z79.899 Other long term (current) drug therapy | CPT/HCPCS: 96127 ==

== ENCOUNTER 2024-05-09 14:40 | Outpatient (REF) | payer OTHER, SELFPAY ==
--- NOTE | ~2024-05-09 | US_ITS ---
CLINICAL HISTORY: N93.9 - Abnormal uterine and vaginal bleeding, unspecified US pelvis transabdominal and transvaginal Comparison: None Findings: Uterus measures 7.5 x 3.1 x 4.8 cm. Questionable 9 mm subserosal cystic fibroid. Normal myometrium. Endometrium 1 mm thickness. Right ovary up to 2.9 x 1.9 x 1.3 cm (these measurements were obtained from the apparent right ovary on the transvaginal exam; of note, the trans vaginal depiction of the right ovary may be inaccurate and the right ovary was better evaluated on the transabdominal exam) Left ovary 1.2 x 0.7 x 0.5 cm. No adnexal mass lesion. No free fluid. IMPRESSION: Questionable subcentimeter subserosal cystic fibroid. Thin endometrium. This document has been electronically signed by: Josselin Ferrell MD on 05/11/2024 08:10:40
--- OUTSIDE RECORDS SUMMARY | 2024-05-09 17:42 | XMS_ITS | Data Portability ---
Author Organization CLAY Myles [facility], [address] Address [address] [place] [address] Care Team Providers Care Lactation Consultant Name Role Phone [facility] Primary Care Provider Assessment No assessment recorded. Plan of Treatment Reminders Order Date Submit Date Provider Last Modified By Organization Details Last Modified Time Details Appointments None recorded. Lab None recorded. Referral None recorded. Procedures None recorded. Surgeries None recorded. Imaging None recorded. Medication Orders valacyclovi r [address] tablet [address] [facility], [address], [place], [id number], 4 09:44:53 prednisone 20 mg tablet 2022 023 [facility] #52292, [address], [place], [id number], 3 11:50:14 Allergy Relief (fluticason e) 50 mcg/actuati on nasal spray,suspe nsion [address] [facility], [address], [place], [id number], 3 11:50:14 fexofenadin e-pseudoeph edrine ER 180 mg-240 mg tablet,ext. release [address] [facility] [facility], [address], [place], [phone], 11:50:13 Patient TargetsNo targets recorded. Patient Instructions Encounter Date Encounter Id Patient Instructions Last Modified By Organization Details Last Modified Time 08/05/2022 [id number] earache: care instructions [email or web address] Not available 08/05/2022 [...] care for yourself at home? Take an woqw-dfj-vfczofa pain medicine. Avoid Ibuprofen, Aleve and Aspirin if . If the doctor prescribed antibiotics, take them as directed. Do not stop taking them just because you feel better. You need to take the full course of antibiotics. Be careful when taking rixc-dby-hqpdupb cold or influenza (flu) medicines and Tylenol [...] congestion worse. Not available 08/05/2022 11:50:00 04/26/2023 [id number] cold sores: care instructions [email or web address] Not available 04/26/2023 09:44:46 Reason for Referral None Reported. Problems Name Problem SNOMED Code Status Onset Date Resolution Date Notes Provider Name and Address Organization Details Recorded Time Hypertensive disorder 43714865 Active CARMELA MEDEL RA null, PA - [facility] 3 11:27:17 History of urinary stone 565219666 Active 2022 CARMELA DIA-KURTIS RA null, PA [...] Name and Address Organization Details Recorded Time 896587 Celebrex medicatio n itching Not available Not available 08/05/2022 97802 7 RxNorm CARMELA DIA-ZAIRAE RA null, PA - [facility] 3 11:24:58 459204 Effexor medicatio n Not available Not available Not available 08/05/2022 32433 2 RxNorm CARMELA DIA-RIVE RA null, PA - [facility] 3 11:25:05 026999 Zoloft medicatio n itching Not available Not available 08/05/2022 84189 RxNorm CARMELA DIA-RIVE RA null, PA - [facility] 3 11:25:14 859226 Bactrim medicatio n other Not available Not available 08/05/2022 21258 9 RxNorm CARMELA DIA-RIVE RA null, PA [...] e) 50 mcg/actuati on nasal spray,suspe nsion [place] 1 spray every day by intranasa l [...] Updated DateTime 3 167.64 cm 29.7 kg/m2 19129 g 8 18 /min 100 % 100 [...] Updated DateTime 4 167.64 cm 27.4 kg/m2 15353.7 g 99 % 99 % 81 /min 18 /min 97.1 [degF] 109 mm[Hg] 78 mm[Hg] Tanesha WILLAIMSON - [facility] 4 09:41:34 Social History [...] SNOMED-CT Code Diagnosis ICD10 Code Diagnosis Note [id number] [address] [place] [address] 12/21/2019 09:07:36 12/21/2019 10:41:02 [id number] Yonis Barber [place] [address] [place] [address] 08/05/2022 09:00:43 08/05/2022 11:51:15 Acute sinusitis 80037252 J01.90 [id number] CLAY Connors [address] [place] [address] 04/26/2023 09:15:10 04/26/2023 09:47:22 Herpes labialis 7511010 B00.1 You have been diagnosed with a [...] [employer] [id number] [place] [employer] [id number] [facility] 08/05/2022 1 [employer] [place] [id number] [facility] [id number] [facility] 04/26/2023 1 [facility] [id number] 23 [facility] [id number] [facility] Notes Date Note Type Note Provider Name [...] discharge Yonis Barber NP [address] [place], [address], PA - [facility] 08/05/2022 11:50:27 04/26/2023 text/html 43 y/o female he re with blisters on her lips for the past few days, worsening. Has been very stressed recently. Has had cold sores in the past CLAY Connors [address] [place], [address], PA - [facility] 04/26/2023 09:50:29 OBGyn Episode No OBEpisode recorded.
== END 2024-05-09 14:41 | disposition home or self-care (01) ==
LOC: HO.US 14:40
PROVIDERS: PCP Internal Medicine; Visit Provider Internal Medicine
DX: N93.9 Abnormal uterine and vaginal bleeding, unspecified (principal)
CPT/HCPCS: 76830; 76856

== ENCOUNTER → 2024-05-09 14:42 | Outpatient (BNV) | payer OTHER, SELFPAY | PROVIDERS: PCP Internal Medicine; Visit Provider Radiology Diagnostic Radiology | DX: N93.9 Abnormal uterine and vaginal bleeding, unspecified (principal) | CPT/HCPCS: 76830; 76856 ==

== ENCOUNTER 2024-05-14 09:49 | Outpatient (REF) | payer OTHER, SELFPAY ==
[2024-05-14 11:03] LABS: Appearance Urine Cloudy; Color Urine Yellow; Glucose Urine UA Negative (Negative); Leukocyte Esterase Urine Small (1+) (Negative); Nitrite Urine Negative (Negative); PH 5.5 (5.0-9.0); Specific Gravity - Urine >= 1.030 (1.005-1.025); UMIC TRIGGER UACC YES; Urine Blood Negative (Negative); Urine Ketones Trace mg/dL (Negative); Urine Protein Negative (Neg-Trace)
[2024-05-14 11:10] LABS: Bacteria Urine None Seen (None Seen); Hyaline Casts Urine 0-2 /LPF (0-2); RBC Urine 0-2 /HPF (0-2); UACC Culture Trigger YES
== END 2024-05-14 09:50 | disposition home or self-care (01) ==
LOC: HO.LAB 09:49
PROVIDERS: Physician Assistant Medical; PCP Internal Medicine
DX: R10.2 Pelvic and perineal pain (principal)
CPT/HCPCS: 81001; 81003; 87086

== ENCOUNTER 2024-06-05 11:17 | Outpatient (REF) | payer OTHER, SELFPAY ==
--- NOTE | ~2024-06-05 | US_ITS ---
EXAMINATION: US KIDNEY BILATERAL HISTORY: N20.0 - Calculus of kidney TECHNIQUE: Real-time grayscale ultrasound imaging of the kidneys was performed and images were reviewed. COMPARISON: Comparison is made with the prior examination dated 03/14/2024. 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 Right kidney: The right renal moiety measures 9.1 x 4.5 x 4.9 cm. Renal parenchymal echotexture and thickness are normal. There are no masses. There is a 3 mm nonobstructing calculus at the upper pole. There is mild fullness of the renal pelvis without hydronephrosis. Left Kidney: The left renal moiety measures 11.7 x 4.7 x 3.6 cm. Renal parenchymal echotexture and thickness are normal. There are no masses. There is no hydronephrosis or renal calculi. US/US renal BI IMPRESSION: Horseshoe kidney. 3 mm nonobstructing calculus at the upper pole of the right renal moiety. Electronically signed by: Ole Howell MD 06/05/2024 01:19 PM EDT
== END 2024-06-05 11:18 | disposition home or self-care (01) ==
LOC: HO.US 11:17
PROVIDERS: PCP Internal Medicine; Visit Provider Urology
DX: N20.0 Calculus of kidney (principal)
CPT/HCPCS: 76775

== ENCOUNTER → 2024-06-05 11:20 | Outpatient (BNV) | payer OTHER, SELFPAY | PROVIDERS: PCP Internal Medicine; Visit Provider Radiology Diagnostic Radiology | DX: N20.0 Calculus of kidney (principal) | CPT/HCPCS: 76775 ==

== ENCOUNTER 2024-06-12 12:59 | Outpatient (REF) | payer OTHER, SELFPAY ==
[2024-06-13 07:31] LABS: CT PCR NOT DETECTED (Not Detect.); NG PCR NOT DETECTED (Not Detect.)
[2024-06-13 08:37] LABS: Bacterial Vaginosis PCR NEGATIVE (Negative); Candida Group PCR NOT DETECTED (Not Detect); Candida glab krusei PCR NOT DETECTED (Not Detect); Trichomonas vaginalis PCR NOT DETECTED (Not Detect)
== END 2024-06-12 13:00 | disposition home or self-care (01) ==
LOC: HO.LAB 12:59
PROVIDERS: PCP Internal Medicine; Visit Provider Advanced Practice Midwife
DX: N89.8 Other specified noninflammatory disorders of vagina (principal); Z20.2 Contact with and (suspected) exposure to infections with a predominantly sexual mode of transmission
CPT/HCPCS: 81515; 87491; 87591

== ENCOUNTER 2024-06-12 12:59 | Outpatient (AMB) | payer OTHER, SELFPAY ==
[2024-06-12 13:06] VITALS: BP 128/78
--- NOTE | 2024-06-12 13:06 | A.OFFVIS_ITS ---
Vital Signs 06/12/24 13:06 Height 5 ft 6 in Weight 186 lb BMI 30.0 BP 128/78 Intake Visit Reasons: irregular menses Secured Entrance Monitor Required: No Secured Entrance Monitor Services: Secured Entrance Monitor Present Information Interpreted: clinical only Commissioner Conservation Of Resources: Commissioner Conservation Of Resources Present Allergies celecoxib [From Celebrex] Allergy (Intermediate, Verified 06/12/24 13:09) Itching metronidazole Allergy (Unknown, Verified 06/12/24 13:09) Rash sertraline [Zoloft] Allergy (Unknown, Verified 06/12/24 13:09) Itching sulfamethoxazole [From BACTRIM] Allergy (Unknown, Verified 06/12/24 13:09) Itching trimethoprim [From BACTRIM] Allergy (Unknown, Verified 06/12/24 13:09) Itching naproxen [From Naprosyn] Allergy (Verified 06/12/24 13:09) Itching venlafaxine [From Effexor] Allergy (Verified 06/12/24 13:09) Itching tramadol Adverse Reaction (Intermediate, Verified 06/12/24 13:09) Nausea alprazolam [From XANAX] Adverse Reaction (Mild, Verified 06/12/24 13:09) Confusion Sulfa (Sulfonamide Antibiotics) Adverse Reaction (Unknown, Verified 06/12/24 13:09) yeast infection Medication List - Last Reconciled 06/12/24 by Colleen Darby CNM [03/10 in heel lift As directed] amlodipine 5 mg PO DAILY 90 days bupropion HCl XL 150 mg PO QAM 30 days ibuprofen 800 mg PO DAILY PRN lorazepam 0.5 mg PO TID PRN 30 days multivitamin (Multiple Vitamins tablet) 1 tab PO DAILY 90 days off loading boot (Aircast off loading boot) As directed ondansetron HCl 4 mg PO Q8H pyridoxine (vitamin B6) 50 mg PO DAILY 90 days semaglutide (weight loss) 1 mg (0.5 mL) subcut QWEEK 4 weeks tamsulosin (Flomax) 0.4 mg PO DAILY 2 weeks Is last menstrual period known: No (no menses since 03/21/24) HPI HPI irregular menses: Details: patient is here because she is concerned her periods have started to become i rregular in the she skipped a period in February she had a period in March but she has not had a period in April or May. In addition to that she had a pain in her low right side that lasted the entire month of May she saw her primary care provider in that period. And he ordered an ultrasound which was done on 05/11/2024, which showed a point 9 cm possible submucosal fibroid and some unclear right ovarian findings. Patient feels that something is wrong in addition to that she had 3 weeks of incredible hot flashes that she had never experienced before breaking out in sweats and her joints hurting and not feeling like herself. She has been going through stress in that she is going through a divorce since February.. She is acutely aware of her menstrual cycle and she could tell that she did not ovulate in April or May, but she feels that all last week for 5 days she had very clear signs of ovulation with very abundant cervical mucus production. She has delivered with the midwifery team in the past in 2018. she has hypertension and is on amlodipine for the and takes p.r.n. lorazepam as well as PRN medications when she thinks she has symptoms of a kidney stone. [facility] Medical History Breast cancer screening by mammogram (~06/11/23) HPV (human papilloma virus) infection Renal calculi Pyelonephritis Lumbar degenerative disc disease Horseshoe kidney Anxiety Obesity (BMI 30-39.9) Benign essential hypertension Gestational HTN Surgical History History of extraction of renal calculus Back pain with history of spinal surgery H/O wrist surgery Family History Father HIV (human immunodeficiency virus infection) Mother CVD (cardiovascular disease) Maternal Grandmother Breast cancer Diabetes Hypertension Maternal Grandfather Prostate cancer Paternal Grandmother CVD (cardiovascular disease) Paternal Grandfather Prostate cancer Sister In good health CHF (congestive heart failure) Son In good health Social History Household Members: Spouse Housing: Apartment Are you a primary technical healthcare consultant to a significant other at home: No Do you presently have visiting nurse or other home services: No Alcohol intake: never Patient Tobacco Use Status: Never used Tobacco e-Cigarette/Vaping Use: Never Used Second Hand Smoke Exposure: No service: No (HPD) Current occupational status: employed Cognitive needs: No Hearing needs: No Vision needs: No Female Reproductive History Menstrual Age of Menarche: 11 Duration of menses: 3-5 days Date of last menstrual period: 03/21/24 control method: none Total pregnancies: 1 Full term: 1 Date of last pap smear: 11/12/22 (negative) History of abnormal pap smear: Yes (20 yrs ago) Physical Exam Vital Signs: Last Vital Signs BP 128/78 06/12/24 13:06 BMI result Body Mass Index 30.0 Other: normal external exam vagina pink and moist multiparous cervix has some clear mucus and some whitish mucus consistent with recent ovulation in recent days cervix is long close thick mobile nontender uterus midposition to anteverted mobile nontender no masses or tenderness palpable in right adnexa or left adnexa fair tone with Kegel. External Female Exam: normal external appearance Speculum Exam - Vagina: normal appearance of the vagina and normal vaginal discharge Speculum Exam - Cervix: normal appearance of the cervix Bimanual exam- vagina & uterus: normal bimanual exam, uterine size normal, consistency normal, uterine mobility normal, uterine shape normal and non-tender Bimanual Exam- Adnexa, other: normal adnexae, no masses and No adnexal tenderness Assessment & Plan Assessment & Plan (1) Pelvic pain: Comment: right-sided,for the entire month of May. gradually resolving Code(s): R10.2 - Pelvic and perineal pain Category: Medical (2) Perimenopausal symptoms: Code(s): N95.1 - Menopausal and female climacteric states Category: Medical (3) Encounter for screening examination for sexually transmitted disease: Code(s): Z11.3 - Encounter for screening for infections with a predominantly sexual mode of transmission Category: Medical Plan discussed her symptoms in great detail we will obtain an FSH and a TSH. I am doubtful that she is in menopause but I think she has had a preview of some rogerio menopausal symptoms with the hot flashes and it is quite possible that she is entirely correct and that she did not ovulate for those 2 months and now that she believes and her symptoms are consistent with recent ovulation last week she will most likely hopefully get a period within the next 10-14 days. In the meantime I am pains ordering another ultrasound to reassess the right side as that was where she felt the discomfort. We will also see if the possible fibroid is again. seen or not. we will have a tele visit after all is back, or in person if that is easier. Timeframe/Date Comment labs pelvic ultrasound hopefully within next week o follow-up after the ultrasound Orders: Orders Thyroid Stimulating Hormone Today N95.1 - Menopausal and female climacteric states, Z11.3 - Encounter for screening for infections with a predominantly sexual mode of transmission Follicle Stimulating Hormone Today N95.1 - Menopausal and female climacteric states, Z11.3 - Encounter for screening for infections with a predominantly sexual mode of transmission Hepatitis C Antibody Today N95.1 - Menopausal and female climacteric states, Z11.3 - Encounter for screening for infections with a predominantly sexual mode of transmission Syphilis Screen Today N95.1 - Menopausal and female climacteric states, Z11.3 - Encounter for screening for infections with a predominantly sexual mode of transmission US pelvic and transvaginal Today R10.2 - Pelvic and perineal pain Hepatitis B Surface Antigen Today N95.1 - Menopausal and female climacteric states, Z11.3 - Encounter for screening for infections with a predominantly sexual mode of transmission HIV Ab/Ag Today N95.1 - Menopausal and female climacteric states, Z11.3 - Encounter for screening for infections with a predominantly sexual mode of transmission Coding Level of Care Code New Pt Level 4 (29724) Diagnoses Pelvic pain R10.2 Perimenopausal symptoms N95.1 Encounter for screening examination for sexually transmitted disease Z11.3
--- OUTSIDE RECORDS SUMMARY | 2024-06-12 15:46 | XMS_ITS | Data Portability ---
Author Organization [facility], [address] Address [address] [place] [address] Care Team Providers Care Rubber Roller Grinder Name Role Phone [facility] Primary Care Provider Assessment No assessment recorded. Plan of Treatment Reminders Order Date Submit Date Provider Last Modified By Organization Details Last Modified Time Details Appointments None recorded. Lab None recorded. Referral None recorded. Procedures None recorded. Surgeries None recorded. Imaging None recorded. Medication Orders valacyclovi r 1 gram tablet 2023 024 [id number] [address], [place], [id number], 4 09:44:53 prednisone 20 mg tablet 2022 023 [facility]10208, [address], [place], [id number], 3 11:50:14 Allergy Relief (fluticason e) 50 mcg/actuati on nasal spray,suspe nsion 2022 023 [facility], [address], [place], [id number], 3 11:50:14 fexofenadin e-pseudoeph edrine ER 180 mg-240 mg tablet,ext. release 24 hr 2022 023 [facility], [address], [place], [id number], 11:50:13 Patient TargetsNo targets recorded. Patient Instructions Encounter Date Encounter Id Patient Instructions Last Modified By Organization Details Last Modified Time 08/05/2022 [id number] earache: care instructions [email or web address] Not available 08/05/2022 [...] care for yourself at home? Take an jxyq-crk-yzauiul pain medicine. Avoid Ibuprofen, Aleve and Aspirin if . If the doctor prescribed antibiotics, take them as directed. Do not stop taking them just because you feel better. You need to take the full course of antibiotics. Be careful when taking xcwm-fed-jtylppg cold or influenza (flu) medicines and Tylenol [...] congestion worse. Not available 08/05/2022 11:50:00 04/26/2023 [id number] cold sores: care instructions [email or web address] Not available 04/26/2023 09:44:46 Reason for Referral None Reported. Problems Name Problem SNOMED Code Status Onset Date Resolution Date Notes Provider Name and Address Organization Details Recorded Time Hypertensive disorder 61763694 Active CARMELA MEDEL RA null, [place] - [facility] 3 11:27:17 History of urinary stone 073772976 Active 2022 CARMELA DIA-KURTIS RA null, PA [...] Name and Address Organization Details Recorded Time 291799 Celebrex medicatio n itching Not available Not available 08/05/2022 41347 7 RxNorm CARMELA DIA-ZAIRAE RA null, PA - [facility] 3 11:24:58 746091 Effexor medicatio n Not available Not available Not available 08/05/2022 31498 2 RxNorm CARMELA DIA-RIVE RA null, PA - [facility] 3 11:25:05 131116 Zoloft medicatio n itching Not available Not available 08/05/2022 30987 RxNorm CARMELA DIA-RIVE RA null, PA - [facility] 3 11:25:14 063435 Bactrim medicatio n other Not available Not available 08/05/2022 24072 9 RxNorm CARMELA DIA-RIVE RA null, PA [...] e) 50 mcg/actuati on nasal spray,suspe nsion [place] 1 spray every day by intranasa l [...] Updated DateTime 3 167.64 cm 29.7 kg/m2 27732 g 8 18 /min 100 % 100 [...] Updated DateTime 4 167.64 cm 27.4 kg/m2 12486.7 g 99 % 99 % 81 /min [...] SNOMED-CT Code Diagnosis ICD10 Code Diagnosis Note [id number] [address] [place] [address] 12/21/2019 09:07:36 12/21/2019 10:41:02 [id number] Yonis Barber [facility] [address] [place] [address] 08/05/2022 09:00:43 08/05/2022 11:51:15 Acute sinusitis 54697868 J01.90 [id number] [facility] [address] [facility] [address] [place] [address] 04/26/2023 09:15:10 04/26/2023 09:47:22 Herpes labialis [id number] B00.1 You have been diagnosed with a [...] [employer] [id number] [place] [facility] [id number] [place] [facility] 08/05/2022 1 [place] [employer] [employer]) [id number] [facility] [id number] [facility] [facility] [id number] 23 [facility] [id number] [facility] Notes Date Note Type Note Provider Name [...] discharge Yonis Barber NP [address] [place], [address], [place] - [facility] 08/05/2022 11:50:27 04/26/2023 text/html 43 y/o female he re with blisters on her lips for the past few days, worsening. Has been very stressed recently. Has had cold sores in the past CLAY Connors [address] [place], [address], [place] - [facility] 04/26/2023 09:50:29 OBGyn Episode No OBEpisode recorded.
== END 2024-06-12 14:13 | disposition home or self-care (01) ==
LOC: HO.HWSM 12:59
PROVIDERS: PCP Internal Medicine; Visit Provider Advanced Practice Midwife
DX: R10.2 Pelvic and perineal pain (principal); N95.1 Menopausal and female climacteric states; Z11.3 Encounter for screening for infections with a predominantly sexual mode of transmission
CPT/HCPCS: 99204

== ENCOUNTER 2024-06-12 14:18 | Outpatient (REF) | payer OTHER, SELFPAY ==
[2024-06-12 16:49] LABS: Thyroid Stimulating Hormone 1.28 uIU/mL (0.32-4.0)
[2024-06-13 02:47] LABS: Follicle Stimulating Hormone 15.3 mIU/mL
[2024-06-13 04:21] LABS: Syphilis Screen Nonreactive (Nonreactive)
[2024-06-13 04:50] LABS: HBsAGNum1 0.33 S/CO (0.00-0.99); HIV AB/AG Nonreactive (Nonreactive); HIV Num 1 0.08 S/CO (0.00-0.99); Hepatitis B Surface Antigen Negative (Negative); ~Hepatitis C Antibody Nonreactive (Nonreactive)
== END 2024-06-12 14:19 | disposition home or self-care (01) ==
LOC: HO.HHCL 14:18
PROVIDERS: Visit Provider Advanced Practice Midwife
DX: N95.1 Menopausal and female climacteric states (principal); Z11.3 Encounter for screening for infections with a predominantly sexual mode of transmission; R10.2 Pelvic and perineal pain
CPT/HCPCS: 36415; 83001; 84443; 86780; 86803; 87340; 87389

== ENCOUNTER 2024-06-13 09:31 | Outpatient (REF) | payer OTHER, SELFPAY | END 2024-06-13 09:32 | disposition home or self-care (01) | LOC: HO.MAMMO 09:31 | PROVIDERS: PCP Internal Medicine; Visit Provider Internal Medicine | DX: Z12.31 Encounter for screening mammogram for malignant neoplasm of breast (principal) | CPT/HCPCS: 77063; 77067 ==

== ENCOUNTER → 2024-06-13 09:45 | Outpatient (BNV) | payer OTHER, SELFPAY | PROVIDERS: PCP Internal Medicine; Visit Provider Internal Medicine | DX: Z12.31 Encounter for screening mammogram for malignant neoplasm of breast (principal) | CPT/HCPCS: 77063; 77067 ==

== ENCOUNTER 2024-06-15 14:28 | Outpatient (REF) | payer OTHER, SELFPAY ==
--- NOTE | ~2024-06-15 | US_ITS ---
CLINICAL HISTORY: R10.2 - Pelvic and perineal pain US pelvis transabdominal and transvaginal with color and duplex Doppler Comparison: US - US PELVIC AND TRANSVAGINAL - 05/09/24 15:03 EST Findings: Transabdominal scanning performed for overall anatomy. Transvaginal scanning performed for additional detail. LMP: 03/21/2024 Anteverted uterus, normal size and echotexture, measuring 9.3 x 4.6 x 4.9 cm. Well defined endometrium, measuring 5.6 mm in thickness. Uterine fibroids as follows: 1. Posterior fundal subserosal 0.9 x 0.8 x 0.7 cm previously measuring 0.9 x 0.8 x 0.9 cm. 2. Posterior fundal subserosal 0.6 x 0.6 x 0.7 cm is new. The right ovary measures, 1.7 x 1.7 x 2.8 cm cm. Dominant follicle measuring 1.0 x 1.0 x 1.5 cm. The left ovary measures, 5.4 x 3.0 x 4.3 cm. Septated cyst measuring 3.6 x 2.8 x 3.2 cm. No adnexal masses or fluid collections. No free fluid. Impression: 1. Subserosal fibroids with color and duplex Doppler. 2. Dominant follicle right ovary. Probable septated functional cyst left ovary can be followed up in 6 or 12 weeks time. 3. Normal thickness endometrium. This document has been electronically signed by: Gulshan Ferrara MD on 06/16/2024 09:06:33
--- OUTSIDE RECORDS SUMMARY | 2024-06-15 14:45 | XMS_ITS | Data Portability ---
Author Organization [facility], [address] Address [address] [place] [address] Care Team Providers Care Reject Opener Name Role Phone [facility] Primary Care Provider [phone] Assessment No assessment recorded. Plan of Treatment Reminders Order Date Submit Date Provider Last Modified By Organization Details Last Modified Time Details Appointments None recorded. Lab None recorded. Referral None recorded. Procedures None recorded. Surgeries None recorded. Imaging None recorded. Medication Orders valacyclovi r 1 gram tablet 2023 024 [facility], [address] [place], [place], [id number], 4 09:44:53 prednisone 20 mg tablet 2022 023 [facility] #35067, [address] [place], [place], [id number], 3 11:50:14 Allergy Relief (fluticason e) 50 mcg/actuati on nasal spray,suspe nsion 2022 023 [facility] #64892, [address] [place], [place], [id number], 3 11:50:14 fexofenadin e-pseudoeph edrine ER 180 mg-240 mg tablet,ext. release 24 hr 2022 023 [facility]38689, [address] [place], [place], [id number], 11:50:13 Patient TargetsNo targets recorded. Patient Instructions Encounter Date Encounter Id Patient Instructions Last Modified By Organization Details Last Modified Time 08/05/2022 [id number] earache: care instructions [email or web address] Not available 08/05/2022 [...] care for yourself at home? Take an knux-gxz-uqnzoic pain medicine. Avoid Ibuprofen, Aleve and Aspirin if . If the doctor prescribed antibiotics, take them as directed. Do not stop taking them just because you feel better. You need to take the full course of antibiotics. Be careful when taking ixuw-eam-nocwbey cold or influenza (flu) medicines and Tylenol [...] congestion worse. Not available 08/05/2022 11:50:00 04/26/2023 [id number] cold sores: care instructions [email or web address] Not available 04/26/2023 09:44:46 Reason for Referral None Reported. Problems Name Problem SNOMED Code Status Onset Date Resolution Date Notes Provider Name and Address Organization Details Recorded Time Hypertensive disorder 61030551 Active CARMELA MEDEL RA null, PA - [facility] 3 11:27:17 History of urinary stone 796142262 Active 2022 CARMELA DIA-KURTIS RA null, PA [...] Name and Address Organization Details Recorded Time 873525 Celebrex medicatio n itching Not available Not available 08/05/2022 46118 7 RxNorm CARMELA DIA-ZAIRAE RA null, PA - [facility] 3 11:24:58 378905 Effexor medicatio n Not available Not available Not available 08/05/2022 11369 2 RxNorm CARMELA DIA-RIVE RA null, PA - [facility] 3 11:25:05 292650 Zoloft medicatio n itching Not available Not available 08/05/2022 61007 RxNorm CARMELA DIA-RIVE RA null, PA - [facility] 3 11:25:14 048710 Bactrim medicatio n other Not available Not available 08/05/2022 32539 9 RxNorm CARMELA DIA-RIVE RA null, PA [...] e) 50 mcg/actuati on nasal spray,suspe nsion [place] 1 spray every day by intranasa l [...] Updated DateTime 3 167.64 cm 29.7 kg/m2 30624 g 8 18 /min 100 % 100 [...] Updated DateTime 4 167.64 cm 27.4 kg/m2 65682.7 g 99 % 99 % 81 /min [...] SNOMED-CT Code Diagnosis ICD10 Code Diagnosis Note [id number] [address] [place] [address] 12/21/2019 09:07:36 12/21/2019 10:41:02 [id number] Yonis Barber [facility] [address] [place] [address] 08/05/2022 09:00:43 08/05/2022 11:51:15 Acute sinusitis 54403712 J01.90 [id number] [facility] [address] [facility] [place] [address] 04/26/2023 09:15:10 04/26/2023 09:47:22 Herpes labialis [id number] B00.1 You have been diagnosed with a [...] [employer] [id number] [place] [facility] [id number] [place] [facility] 08/05/2022 1 [place]UE [employer] [id number] [facility] [id number] [facility] 1 [facility] [id number] 23 [facility] [id number] [facility] Notes Date Note Type Note Provider Name [...] discharge Yonis Barber NP [address] [place], [address], PA - [facility] 08/05/2022 11:50:27 04/26/2023 text/html 43 y/o female he re with blisters on her lips for the past few days, worsening. Has been very stressed recently. Has had cold sores in the past CLAY Connors [address] [place], [address], PA - [facility] 04/26/2023 09:50:29 OBGyn Episode No OBEpisode recorded.
== END 2024-06-15 14:29 | disposition home or self-care (01) ==
LOC: HO.HMGCX 14:28
PROVIDERS: PCP Internal Medicine; Visit Provider Advanced Practice Midwife
DX: R10.2 Pelvic and perineal pain (principal)
CPT/HCPCS: 76830; 76856

== ENCOUNTER → 2024-06-15 14:30 | Outpatient (BNV) | payer OTHER, SELFPAY | PROVIDERS: PCP Internal Medicine; Visit Provider Radiology Diagnostic Radiology | DX: R10.2 Pelvic and perineal pain (principal) | CPT/HCPCS: 76830; 76856 ==

== ENCOUNTER 2024-06-22 10:55 | Outpatient (AMB) | payer OTHER, SELFPAY ==
--- NOTE | 2024-06-22 10:55 | A.OFFVIS_ITS ---
Intake Visit Reasons: 6 months Intake Note: Pt presents as a telehealth visit today for a 6 month follow up. Allergies celecoxib [From Celebrex] Allergy (Intermediate, Verified 06/22/24 10:55) Itching metronidazole Allergy (Unknown, Verified 06/22/24 10:55) Rash sertraline [Zoloft] Allergy (Unknown, Verified 06/22/24 10:55) Itching sulfamethoxazole [From BACTRIM] Allergy (Unknown, Verified 06/22/24 10:55) Itching trimethoprim [From BACTRIM] Allergy (Unknown, Verified 06/22/24 10:55) Itching naproxen [From Naprosyn] Allergy (Verified 06/22/24 10:55) Itching venlafaxine [From Effexor] Allergy (Verified 06/22/24 10:55) Itching tramadol Adverse Reaction (Intermediate, Verified 06/22/24 10:55) Nausea alprazolam [From XANAX] Adverse Reaction (Mild, Verified 06/22/24 10:55) Confusion Sulfa (Sulfonamide Antibiotics) Adverse Reaction (Unknown, Verified 06/22/24 1 0:55) yeast infection HPI Comments Details: Carolina very pleasant female. She is a patient of Dr. Olmstead. She is seen for following urologic conditions - recurrent nephrolithiasis - in setting of horseshoe kidney Telemedicine Evaluation 15 min Consultation D[facility] Misty Video Six-month follow-up Renal ultrasound does not report any stones currently Continue fluids Continue B6 Encouraged her to continue with her diet Can space out to 12 month imaging Nephrolithiasis Here following stone procedure - horseshoe kidney Has had previous stones Stone analysis 10/25 mixed calcium oxalate with calcium apaptite Prior interventions - 10/25 right-sided distal ureteroscopy laser lithotripsy stent placement - 06/25 right ESWL - 11/26 right ureteroscopy laser lithotripsy Imaging - 06/25 renal ultrasound with 5 mm stone on right side - 11/25 CT scan the distal right ureteric stone with mild hydronephrosis. No other stones seen - 01/25 renal ultrasound question of 3 mm stone on right - 08/26 renal ultrasound 6 mm right mid pole - 10/27 renal US mild fullness right side - 06/28 renal ultrasound question of small stone 2 mm bilateral - 06/29 renal ultrasound question small stone right side Stone composition - 10/25 mixed calcium oxalate with calcium phosphate - 11/26 calcium oxalate with calcium phosphate Litholink - 01/26 good volume, high citrate - high calcium, high sodium Therapeutic plan - encourage fluids - interval surveillance [facility] Medical History Breast cancer screening by mammogram (~06/11/23) HPV (human papilloma virus) infection Renal calculi Pyelonephritis Lumbar degenerative disc disease Horseshoe kidney Anxiety Obesity (BMI 30-39.9) Benign essential hypertension Gestational HTN Surgical History History of extraction of renal calculus Back pain with history of spinal surgery H/O wrist surgery Family History Father HIV (human immunodeficiency virus infection) Mother CVD (cardiovascular disease) Maternal Grandmother Breast cancer Diabetes Hypertension Maternal Grandfather Prostate cancer Paternal Grandmother CVD (cardiovascular disease) Paternal Grandfather Prostate cancer Sister In good health CHF (congestive heart failure) Son In good health Social History Household Members: Spouse Housing: Apartment Are you a primary clinical care coordinator to a significant other at home: No Do you presently have visiting nurse or other home services: No Alcohol intake: never Patient Tobacco Use Status: Never used Tobacco e-Cigarette/Vaping Use: Never Used Second Hand Smoke Exposure: No service: No (HPD) Current occupational status: employed Cognitive needs: No Hearing needs: No Vision needs: No Female Reproductive History Menstrual Age of Menarche: 11 Review of Systems Const All systems reviewed & are unremarkable except as noted in HPI and below Reports no additional complaints Resp Reports no additional complaints GI Reports no additional complaints Reports as per HPI Musc Reports no additional complaints Physical Exam Telemedicine evaluation Appropriate responses Regular breathing rate and rhythm HEENT Head: Yes normal to inspection Ears: hearing grossly normal bilaterally Eyes General: appearance normal, both eyes and all related structures Neck Neck: Yes normal visual inspection Chest Chest palpation & inspection: normal inspection of the chest Resp Effort & Inspection: normal respiratory effort and able to speak in complete sentences Telehealth Telehealth [facility]health [facility] Location of provider rendering services: practice address Location of patient: address on file Patient Identification confirmed using: Name, : Yes Telehealth method: video Patient verbally consented to treatment: Yes Patient verbally consented to billing insurance company: Yes Patient informed of any privacy concerns related to visit: Yes Minutes spent on Phone/Video with Pt.: 15 Assessment & Plan Assessment & Plan (1) Recurrent kidney stones: Comment: Calcium oxalate and calcium phosphate Code(s): N20.0 - Calculus of kidney Category: Medical Plan Twelve month follow-up renal ultrasound Orders: Orders US renal BI 12 Months N20.0 - Calculus of kidney Medications: Refilled pyridoxine (vitamin B6) 50 mg PO DAILY 90 days 90 tabs 3RF N20.0 - Calculus of kidney Patient Instructions: This note is constructed using voice recognition software. While every effort has been made to ensure accuracy director river restoration errors may have been included. Imaging studies, laboratory and physical exam results were discussed and reviewed in detail. No major barriers to patient understanding were identified. An opportunity to ask questions regarding the treatment plan was provided. All questions were answered. The patient expressed understanding and agreement with the above treatment plan. The patient is aware they should contact our office by phone for worsening of their current condition or the appearance of new urologic symptoms. Compliance is encouraged with any medications and followup testing that is ordered. It is a privilege to participate in the urologic care of your patient. If you have any questions or concerns regarding treatment for the above conditions, or other urologic issues, please do not hesitate to contact me. The office telephone contact is [phone]. Sincerely, Dr Jose Alfredo Addison MD, [facility] - Urology Compassionate Specialist Care for the Genitourinary System Coding Level of Care Code Tele Est Pt Level 3 (92325) Complex EM visit Add On G2211 Diagnoses Recurrent kidney stones N20.0
--- OUTSIDE RECORDS SUMMARY | 2024-06-22 11:59 | XMS_ITS | Data Portability ---
Author Organization CLAY Myles s, [address] Address [address] [place] [address] Care Team Providers Care Registered Pharmacist Name Role Phone [facility] Primary Care Provider Assessment No assessment recorded. Plan of Treatment Reminders Order Date Submit Date Provider Last Modified By Organization Details Last Modified Time Details Appointments None recorded. Lab None recorded. Referral None recorded. Procedures None recorded. Surgeries None recorded. Imaging None recorded. Medication Orders valacyclovi r [address] [id number], [address] [place], [place], [id number], 4 09:44:53 prednisone 20 mg tablet 2022 023 [facility], [address] [place], [place], [id number], 3 11:50:14 Allergy Relief (fluticason e) 50 mcg/actuati on nasal spray,suspe nsion [address] [facility], [address] [place], [place], [phone], 3 11:50:14 fexofenadin e-pseudoeph edrine ER 180 mg-240 mg tablet,ext. release [address] [facility], [address] [place], [place], [id number], 11:50:13 Patient TargetsNo targets recorded. Patient Instructions Encounter Date Encounter Id Patient Instructions Last Modified By Organization Details Last Modified Time 08/05/2022 [id number] earache: care instructions [email or web address] Not available 08/05/2022 [...] care for yourself at home? Take an kura-uxp-nlovlrz pain medicine. Avoid Ibuprofen, Aleve and Aspirin if . If the doctor prescribed antibiotics, take them as directed. Do not stop taking them just because you feel better. You need to take the full course of antibiotics. Be careful when taking kpjw-xpv-juvhpce cold or influenza (flu) medicines and Tylenol [...] congestion worse. Not available 08/05/2022 11:50:00 04/26/2023 [id number] cold sores: care instructions [email or web address] Not available 04/26/2023 09:44:46 Reason for Referral None Reported. Problems Name Problem SNOMED Code Status Onset Date Resolution Date Notes Provider Name and Address Organization Details Recorded Time Hypertensive disorder 92265906 Active CARMELA MEDEL RA null, [place] - [facility] 3 11:27:17 History of urinary stone 463093776 Active 2022 CARMELA DIA-KURTIS RA null, PA [...] Name and Address Organization Details Recorded Time 009000 Celebrex medicatio n itching Not available Not available 08/05/2022 42608 7 RxNorm CARMELA DIA-ZAIRAE RA null, PA - [facility] 3 11:24:58 159331 Effexor medicatio n Not available Not available Not available 08/05/2022 11960 2 RxNorm CARMELA DIA-RIVE RA null, PA - [facility] 3 11:25:05 704555 Zoloft medicatio n itching Not available Not available 08/05/2022 37645 RxNorm CARMELA DIA-RIVE RA null, PA - [facility] 3 11:25:14 814267 Bactrim medicatio n other Not available Not available 08/05/2022 04527 9 RxNorm CARMELA DIA-RIVE RA null, PA [...] e) 50 mcg/actuati on nasal spray,suspe nsion [place] 1 spray every day by intranasa l [...] Updated DateTime 3 167.64 cm 29.7 kg/m2 29981 g 8 18 /min 100 % 100 [...] Updated DateTime 4 167.64 cm 27.4 kg/m2 57324.7 g 99 % 99 % 81 /min [...] SNOMED-CT Code Diagnosis ICD10 Code Diagnosis Note [id number] [address] [place] [address] 12/21/2019 09:07:36 12/21/2019 10:41:02 [id number] [place] [address] [place] [address] 08/05/2022 09:00:43 08/05/2022 11:51:15 Acute sinusitis 09147067 J01.90 [id number] [facility] [address] [facility] [facility] [address] [place] [address] 04/26/2023 09:15:10 04/26/2023 09:47:22 Herpes labialis 4719355 B00.1 You have been diagnosed with a [...] [employer] [id number] Aiken Mcdermott [id number] Aiken Mcdermott 08/05/2022 1 [place]UE [employer]) [id number] Replaced By [facility] [id number] [facility] 04/26/[address] [facility] [id number] Replaced By [facility] [id number] Replaced By [facility] Notes Date Note Type Note Provider Name [...] discharge Yonis Barber NP [address] [place], [address], PA - [facility] 08/05/2022 11:50:27 04/26/2023 text/html 43 y/o female he re with blisters on her lips for the past few days, worsening. Has been very stressed recently. Has had cold sores in the past CLAY Connors [address] [place], [address], [place] - [facility] 04/26/2023 09:50:29 OBGyn Episode No OBEpisode recorded.
== END 2024-06-22 11:58 | disposition home or self-care (01) ==
LOC: HO.HUSH 10:55
PROVIDERS: PCP Internal Medicine; Visit Provider Urology
DX: N20.0 Calculus of kidney (principal)
CPT/HCPCS: 99213

== ENCOUNTER 2024-06-22 12:53 | Outpatient (AMB) | payer OTHER, SELFPAY ==
--- NOTE | 2024-06-22 13:09 | A.OFFVIS_ITS ---
Vital Signs 06/22/24 13:16 Height 5 ft 6 in Weight 186 lb BMI 30.0 BP 126/74 Intake Visit Reasons: Ultrasound results Accompanied by: Self / Same As Patient Allergies celecoxib [From Celebrex] Allergy (Intermediate, Verified 06/22/24 13:17) Itching metronidazole Allergy (Unknown, Verified 06/22/24 13:17) Rash sertraline [Zoloft] Allergy (Unknown, Verified 06/22/24 13:17) Itching sulfamethoxazole [From BACTRIM] Allergy (Unknown, Verified 06/22/24 13:17) Itching trimethoprim [From BACTRIM] Allergy (Unknown, Verified 06/22/24 13:17) Itching naproxen [From Naprosyn] Allergy (Verified 06/22/24 13:17) Itching venlafaxine [From Effexor] Allergy (Verified 06/22/24 13:17) Itching tramadol Adverse Reaction (Intermediate, Verified 06/22/24 13:17) Nausea alprazolam [From XANAX] Adverse Reaction (Mild, Verified 06/22/24 13:17) Confusion Sulfa (Sulfonamide Antibiotics) Adverse Reaction (Unknown, Verified 06/22/24 13:17) yeast infection Medication List - Last Reconciled 06/22/24 by Colleen Darby CNM [03/10 in heel lift As directed] amlodipine 5 mg PO DAILY 90 days bupropion HCl XL 150 mg PO QAM 30 days ibuprofen 800 mg PO DAILY PRN lorazepam 0.5 mg PO TID PRN 30 days multivitamin (Multiple Vitamins tablet) 1 tab PO DAILY 90 days off loading boot (Aircast off loading boot) As directed ondansetron HCl 4 mg PO Q8H pyridoxine (vitamin B6) 50 mg PO DAILY 90 days Is last menstrual period known: Yes Last menstrual period: 06/17/24 (still present ) Post menopausal: No Patient : No HPI HPI Ultrasound results: Details: Patient is here to review her ultrasound results and also to review results of an FSH and TSH that I did her period was late and she was concerned about that but she says she ovulated soon after the visit and then she got her periods last Tuesday and it is still there it has been a heavy. This time it was 2 months late in total. The ultrasound showed a dominant follicle on 1 side and a septated cyst on the other side and 2 small subserosal fibroids less than 1 cm in size. I reviewed the results with her she has not yet in menopause which she has now realized. I have ordered a repeat ultrasound to be done that falls within the 6-12 weeks recommended by Radiology for follow-up on the septated cyst and we will have a visit after that to review how that is. She had her 7-year-old son Bharat with her for the visit today who had plastics patternmaker' tattoos [facility] Medical History Breast cancer screening by mammogram (~06/11/23) HPV (human papilloma virus) infection Renal calculi Pyelonephritis Lumbar degenerative disc disease Horseshoe kidney Anxiety Obesity (BMI 30-39.9) Benign essential hypertension Gestational HTN Surgical History History of extraction of renal calculus Back pain with history of spinal surgery H/O wrist surgery Family History Father HIV (human immunodeficiency virus infection) Mother CVD (cardiovascular disease) Maternal Grandmother Breast cancer Diabetes Hypertension Maternal Grandfather Prostate cancer Paternal Grandmother CVD (cardiovascular disease) Paternal Grandfather Prostate cancer Sister In good health CHF (congestive heart failure) Son In good health Social History Household Members: Spouse Housing: Apartment Are you a primary manager respiratory care to a significant other at home: No Do you presently have visiting nurse or other home services: No Alcohol intake: never Patient Tobacco Use Status: Never used Tobacco e-Cigarette/Vaping Use: Never Used Second Hand Smoke Exposure: No Patient : No service: No (HPD) Current occupational status: employed Cognitive needs: No Hearing needs: No Vision needs: No Female Reproductive History Menstrual Age of Menarche: 11 Date of last menstrual period: 06/17/24 (still present ) Physical Exam Vital Signs: Last Vital Signs BP 126/74 06/22/24 13:16 BMI result Body Mass Index 30.0 Results Reviewed Results Reviewed: RUN: 06/22/24 1331 PAGE 1 [facility] [address] [place] [id number] Nickel Operator: Kevin Cisneros M.D. Specimen Inquiry Name: Shirlene Mcdermott Age/Sex: 44/F : 1980 Unit#: [id number] Attend Dr: Colleen Darby CNM Re06/12/24 Status: DEP REF Location: [facility] Disch: SPEC : [id number] NICOLA: 06/12/24 STATUS: COMP REQ : [id number] RECD: 06/12/[address] [facility] [address]: Colleen Darby CNM COMP: 06/12/24 ENTERED: 06/12/[address] [facility] [address]: ORDERED: TSH Test Result Flag Reference TSH 3rd Gen. 1.28 0.32-4.0 uIU/mL TSH 3rd Generation ([facility]) Name: Shirlene Mcdermott Age/Sex: 44/F : 1980 Unit#: [id number] Attend Dr: Colleen Darby CNM Re06/12/24 Status: DEP REF Location: [facility] Disch: SPEC : [id number] NICOLA: 06/12/24 STATUS: COMP REQ : [id number] RECD: 06/12/[address]: Colleen Darby CNM COMP: 06/13/24-0247 ENTERED: 06/12/24-[address] [facility] [address]: ORDERED: FSH Test Result Flag Reference FSH 15.3 mIU/mL Reference Range Follicular Phase 2.5-10.2 Mid-cycle Peak 3.1-17.7 Luteal Phase 1.5- 9.1 Postmenopausal 23.0-116.3 THIS TEST WAS PERFORMED AT: [facility] [address] [place] [phone] VEGA ABRAMS MD Patient: Shirlene McdermottMR#: [id number]: [id number]:[id number]/Sex: 44 / FADM Date: 06/15/24Loc: JUSTINACXAttending Dr: Colleen Darby CNM Ordering Physician: Colleen Darby CNM Date of Service: 06/15/24 Procedure(s): US pelvic and transvaginal Accession Number(s): [id number] cc: Elier Olmstead MD; Colleen Darby CNM~ CLINICAL HISTORY: R10.2 - Pelvic and perineal pain US pelvis transabdominal and transvaginal with color and duplex Doppler Comparison: US - US PELVIC AND TRANSVAGINAL - 05/09/24 15:03 EST Findings: Transabdominal scanning performed for overall anatomy. Transvaginal scanning performed for additional detail. LMP: 03/21/2024 Anteverted uterus, normal size and echotexture, measuring 9.3 x 4.6 x 4.9 cm. Well defined endometrium, measuring 5.6 mm in thickness. Uterine fibroids as follows: 1. Posterior fundal subserosal 0.9 x 0.8 x 0.7 cm previously measuring 0.9 x 0.8 x 0.9 cm. 2. Posterior fundal subserosal 0.6 x 0.6 x 0.7 cm is new. The right ovary measures, 1.7 x 1.7 x 2.8 cm cm. Dominant follicle measuring 1.0 x 1.0 x 1.5 cm. The left ovary measures, 5.4 x 3.0 x 4.3 cm. Septated cyst measuring 3.6 x 2.8 x 3.2 cm. No adnexal masses or fluid collections. No free fluid. Impression: 1. Subserosal fibroids with color and du plex Doppler. 2. Dominant follicle right ovary. Probab le septated functional cyst left ovary can be followed up in 6 or 12 weeks time. 3. Normal thickness endometrium. This document has been electronically signed by: Gulshan Ferrara MD on 06/16/2024 09:06:33 Dictated By:Gulshan Ferrara MDSigned By:<Electronically signed by Gulshan Ferrara MD in OV>06/16/24906 DD/ 5TD/TT: 06/16/24905Transcriptionist: Assessment & Plan Assessment & Plan (1) Ovarian cyst: Comment: Awaiting a follow-up ultrasound to see if it resolves Code(s): N83.209 - Unspecified ovarian cyst, unspecified side Category: Medical (2) Pelvic pain: Comment: right-sided,for the entire month of May. gradually resolving Code(s): R10.2 - Pelvic and perineal pain Category: Medical (3) Perimenopausal symptoms: Code(s): N95.1 - Menopausal and female climacteric states Category: Medical Plan See HPI reviewed all results with her we will see her after the next ultrasound to see if things resolve or not I did review with her what we would do if as an example the ultrasound appeared to show something more complex in that case we might refer her to [facility] for further evaluation.. Coding Level of Care Code Est Pt Level 3 (06574) Diagnoses Ovarian cyst N83.209 Pelvic pain R10.2 Perimenopausal symptoms N95.1
[2024-06-22 13:16] VITALS: BP 126/74
== END 2024-06-22 14:18 | disposition home or self-care (01) ==
LOC: HO.HWS 12:53
PROVIDERS: PCP Internal Medicine; Visit Provider Advanced Practice Midwife
DX: N83.209 Unspecified ovarian cyst, unspecified side (principal); R10.2 Pelvic and perineal pain; N95.1 Menopausal and female climacteric states
CPT/HCPCS: 99213

== ENCOUNTER 2024-07-09 16:02 | Outpatient (AMB) | payer OTHER, SELFPAY ==
[2024-07-09 16:17] VITALS: BP 122/80; PULSE 74; O2SAT 98; BMI 30.1
--- NOTE | 2024-07-09 16:17 | A.OFFPC_ITS ---
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 Required: No Accompanied by: Self / Same As Patient Allergies celecoxib [From Celebrex] Allergy (Intermediate, Verified 07/09/24 16:51) Itching metronidazole Allergy (Unknown, Verified 07/09/24 16:51) Rash sertraline [Zoloft] Allergy (Unknown, Verified 07/09/24 16:51) Itching sulfamethoxazole [From BACTRIM] Allergy (Unknown, Verified 07/09/24 16:51) Itching trimethoprim [From BACTRIM] Allergy (Unknown, Verified 07/09/24 16:51) Itching naproxen [From Naprosyn] Allergy (Verified 07/09/24 16:51) Itching venlafaxine [From Effexor] Allergy (Verified 07/09/24 16:51) Itching tramadol Adverse Reaction (Intermediate, Verified 07/09/24 16:51) Nausea alprazolam [From XANAX] Adverse Reaction (Mild, Verified 07/09/24 16:51) Confusion Sulfa (Sulfonamide Antibiotics) Adverse Reaction (Unknown, Verified 07/09/24 16:51) yeast infection Medication List - Last Reconciled 07/09/24 by Elier Olmstead MD [1 03/10 in heel lift As directed] amlodipine 5 mg PO DAILY 90 days bupropion HCl XL 150 mg PO QAM 30 days ibuprofen 800 mg PO DAILY PRN lorazepam 0.5 mg PO TID PRN 30 days multivitamin (Multiple Vitamins tablet) 1 tab PO DAILY 90 days off loading boot (Aircast off loading boot) As directed ondansetron HCl 4 mg PO Q8H pyridoxine (vitamin B6) 50 mg PO DAILY 90 days Tobacco use date assessed: 07/09/24 Dental Screening Dental Screen Date: 07/09/24 HPI Pap Smear HPI Details Patient comes in today for her follow up visit and to also have her pap smear done as she states that she has not had one done in a few years now States that she currently feels okay has no other acute complaints or symptoms She denies any headaches or dizziness Denies any chest pains, no shortness of breath No nausea/vomiting, no abdominal pain No change in bowel habits noted [facility] Medical History Breast cancer screening by mammogram (~06/11/23) HPV (human papilloma virus) infection Renal calculi Pyelonephritis Lumbar degenerative disc disease Horseshoe kidney Anxiety Obesity (BMI 30-39.9) Benign essential hypertension Gestational HTN Surgical History History of extraction of renal calculus Back pain with history of spinal surgery H/O wrist surgery Family History Father HIV (human immunodeficiency virus infection) Mother CVD (cardiovascular disease) Maternal Grandmother Breast cancer Diabetes Hypertension Maternal Grandfather Prostate cancer Paternal Grandmother CVD (cardiovascular disease) Paternal Grandfather Prostate cancer Sister In good health CHF (congestive heart failure) Son In good health Social History Household Members: Spouse Housing: Apartment Are you a primary acute care assistant to a significant other at home: No Do you presently have visiting nurse or other home services: No Alcohol intake: never Patient Tobacco Use Status: Never used Tobacco e-Cigarette/Vaping Use: Never Used Second Hand Smoke Exposure: No service: No (HPD) Current occupational status: employed Cognitive needs: No Hearing needs: No Vision needs: No Female Reproductive History Menstrual Age of Menarche: 11 Questionnaire PHQ-9 Over the last 2 weeks, how often have you been bothered by any of the following problems? 1. Little interest or pleasure in doing things: not at all 2. Feeling down, depressed, or hopeless: not at all 3. Trouble falling or staying asleep, or sleeping too much: nearly every day 4. Feeling tired or having little energy: not at all 5. Poor appetite or overeating: not at all 6. Feeling bad about yourself - or that you are a failure or have let yourself or your family down: not at all 7. Trouble concentrating on things, such as reading the newspaper or watching television: not at all 8. Moving or speaking so slowly that other people could have noticed. Or the opposite - being so fidgety or restless that you have been moving around a lot more than usual: not at all 9. Thoughts that you would be better off or of hurting yourself in some way: not at all Total score: 3 Depression Screening Interpretation: Positive Depression Screening Follow-up: Existing condition and In treatment Depression Screening Done: Yes 81266 - PHQ-9 Billing: Yes Source: Developed by Drs. Ole Ovalle, Jazzy Andrade, Sergio Lucio and colleagues, with an educational alex from [employer]. Thrive Questionnaire Date Thrive assessed: 07/09/24 I am a: Patient What is your living situation today?: I have a steady place to live Within the past 12 months, did the food you bought not last and you didn't have the money to get more?: Never true Within the past 12 months, did you worry whether your food would run out before you got money to buy more?: Never true Do you have trouble paying for medicines?: No Do you have trouble getting transportation to medical appointments?: No Do you have trouble paying your heating and electricity bill?: No Do you have trouble taking care of your child, family member or friend?: No Do you have trouble with day-to-day activities such as bathing, preparing meals, shopping, managing finances, etc.?: No Are you currently unemployed and looking for a job?: No Are you interested in more education?: No Please select the resources that you would like help with: None Currently or been in a relationship where the following occur: No concerns reported THRIVE Score: 0 AUDIT C Alcohol Use Questionnaire (AUDIT-C) 1. How often do you have a drink containing alcohol?: Never 3. How often do you have six or more drinks on one occasion?: Never Total Score: 0 Score Reviewed/Action Taken: Yes EMMY-7 AMB Questionnaire EMMY-7 Date EMMY - 7 assessed: 07/09/24 Feeling nervous, anxious, or on edge: 1 = Several days Not being able to stop or control worryin = Not at all Worrying too much about different things: 0 = Not at all Trouble relaxin = Not at all Being so restless that it is hard to sit still: 0 = Not at all Becoming easily annoyed or irritable: 0 = Not at all Feeling afraid as if something awful might happen: 0 = Not at all Total EMMY-7 score (0-4 normal; 5-9 mild; 10-14 moderate; 15-21 severe): 1 Source: Developed by Drs. Ole Ovalle, Jazzy Andrade, Sergio Lucio and colleagues, with an educational alex from [employer]. Review of Systems Const Denies fatigue, Denies fever(s) and Denies headache(s) ENT Denies dysphagia, Denies dizziness, Denies headache(s), Denies neck pain, Denies odynophagia and Denies sore throat Card Denies chest pain, Denies palpitations and Denies dyspnea Resp Denies chest congestion, Denies cough and Denies dyspnea GI Denies abdominal pain, Denies constipation, Denies dysphagia, Denies diarrhea, Denies nausea, Denies odynophagia and Denies vomiting Details: c/o persistent vaginal bleeding lately Musc Reports back pain (on and off, over the lower back), Denies arthralgias and Denies neck pain Skin/Breast Denies rash Neuro Denies dizziness and Denies headache(s) Psych Reports anxiety Endo Denies fatigue and Denies palpitations Physical exam (Primary Care) Vital Signs: Last Vital Signs Pulse 74 07/09/24 16:17 BP 122/80 07/09/24 16:17 Pulse Ox 98 07/09/24 16:17 Oxygen Delivery Method Room Air 07/09/24 16:17 BMI result Body Mass Index 30.1 Tobacco/Smoking Status: Tobacco use Status Tobacco use date assessed 07/09/24 07/09/24 16:25 Patient Tobacco Use Status Never used Tobacco 07/09/24 16:25 e-Cigarette/Vaping Use Never Used 07/09/24 16:25 PHQ-9: PHQ-9 Score PHQ-9: Total score 3 07/09/24 17:02 Depression Screening Interpretation: Positive Depression Screening Follow-up: Existing condition and In treatment Thrive Assessment: Date of Thrive Assessment Date Thrive assessed 07/09/24 07/09/24 16:25 Currently or been in a relationship where the following occur: No concerns reported Const General: no acute distress and alert HENMT Throat: Yes posterior oropharynx normal and Yes tonsils normal (no TP congestion) Neck Neck: Yes supple and No lymphadenopathy Thyroid: Thyroid normal Resp Auscultation: clear to auscultation bilaterally, no rales and no wheezes Cardio Rate: regular rate Rhythm: regular rhythm Heart sounds: no murmurs GI Palpation (GI): Soft to palpation and nontender Auscultation: normal bowel sounds External Female Exam: normal external appearance Speculum Exam - Vagina: normal appearance of the vagina Speculum Exam - Cervix: normal appearance of the cervix Back/Spine/Pelvis Thoracic/Lumbar Spine: lumbar spinal tenderness (mild) Skin Rashes: no rashes Extrem General: Yes no clubbing, cyanosis or edema Coding Level of Care Code Est Pt Level 4 (23023) Diagnoses Benign essential hypertension I10 Degeneration of intervertebral disc of lumbar region with discogenic back pain M51.360 Disc-related pain type: discogenic back pain only Vitamin D deficiency E55.9 Horseshoe kidney Q63.1 Recurrent kidney stones N20.0 Anxiety F41.9 Obesity (BMI 30-39.9) E66.9 Cervical cancer screening Z12.4 Additional Codes PHQ-9 - 66678 - PHQ-9 Billing: Yes ([id number]) Assessment & Plan Assessment & Plan (1) Benign essential hypertension: Code(s): I10 - Essential (primary) hypertension Category: Medical Plan: Reinforced low sodium diet - goal is systolic BP of 120 mm or less Continue Amlodipine 5 mg QD (2) Lumbar degenerative disc disease: Code(s): M51.36 - Other intervertebral disc degeneration, lumbar region Category: Medical Qualifiers: Disc-related pain type: discogenic back pain only Qualified Code(s): M51.360 - Other intervertebral disc degeneration, lumbar region with discogenic back pain only Plan: Reinforced activity and weight-lifting restrictions to avoid aggravating her lower back pain Continue Ibuprofen 800 mg TID PRN with food or Acetaminophen PRN (3) Vitamin D deficiency: Code(s): E55.9 - Vitamin D deficiency, unspecified Category: Medical Plan: She was taking Vitamin D3 2000 units QD in the past but is currently only taking Multivitamins daily (4) Horseshoe kidney: Code(s): Q63.1 - Lobulated, fused and horseshoe kidney Category: Medical Plan: Patient is reminded of the potential concerns with horseshoe kidneys and the importance of regular follow up appointments with urology for continuing monitoring and surveillance (5) Recurrent kidney stones: Comment: Calcium oxalate and calcium phosphate Code(s): N20.0 - Calculus of kidney Category: Medical Plan: She is again encouraged to continue to increase her oral fluid intake regularly She is happy that she has not had any recurrence of kidney stones lately Follow up with urology as scheduled (6) Anxiety: Code(s): F41.9 - Anxiety disorder, unspecified Category: Medical Plan: Continue Lorazepam 0.5 mg TID PRN and Bupropion XL 150 mg QD (7) Obesity (BMI 30-39.9): Code(s): E66.9 - Obesity, unspecified Category: Medical Plan: Reinforced diet/exercise as tolerated/lose weight (8) Cervical cancer screening: Code(s): Z12.4 - Encounter for screening for malignant neoplasm of cervix Category: Medical Plan: Pap smear done today as requested Plan Follow up in 6 months Orders: Orders Pap Smear 07/09/24 Z12.4 - Encounter for screening for malignant neoplasm of cervix
--- OUTSIDE RECORDS SUMMARY | 2024-07-09 17:27 | XMS_ITS | Data Portability ---
Author Organization [facility], [address] [place] [address] Care Team Providers Care Biomedical Engineering Technician Name Role Phone [facility] Primary Care Provider Assessment No assessment recorded. Plan of Treatment Reminders Order Date Submit Date Provider Last Modified By Organization Details Last Modified Time Details Appointments None recorded. Lab None recorded. Referral None recorded. Procedures None recorded. Surgeries None recorded. Imaging None recorded. Medication Orders valacyclovi r 1 gram tablet 2023 024 [id number], [address], [place], [phone], 4 09:44:53 prednisone 20 mg tablet 2022 023 [facility] #[id number], [address], [place], [phone], 3 11:50:14 Allergy Relief (fluticason e) 50 mcg/actuati on nasal spray,suspe nsion 2022 023 [id number], [address], [place], [id number], 3 11:50:14 fexofenadin e-pseudoeph edrine ER 180 mg-240 mg tablet,ext. release 24 hr 2022 023 [id number], [address], [place], [phone], 11:50:13 Patient TargetsNo targets recorded. Patient Instructions Encounter Date Encounter Id Patient Instructions Last Modified By Organization Details Last Modified Time 08/05/2022 [id number] earache: care instructions [email or web address] Not available 08/05/2022 [...] care for yourself at home? Take an wrmf-ybo-mfzissg pain medicine. Avoid Ibuprofen, Aleve and Aspirin if . If the doctor prescribed antibiotics, take them as directed. Do not stop taking them just because you feel better. You need to take the full course of antibiotics. Be careful when taking rhkf-wbt-cryqmwg cold or influenza (flu) medicines and Tylenol [...] congestion worse. Not available 08/05/2022 11:50:00 04/26/2023 [id number] cold sores: care instructions [email or web address] Not available 04/26/2023 09:44:46 Reason for Referral None Reported. Problems Name Problem SNOMED Code Status Onset Date Resolution Date Notes Provider Name and Address Organization Details Recorded Time Hypertensive disorder 53430115 Active CARMELA MEDEL RA null, [place] - [facility] 3 11:27:17 History of urinary stone 133214303 Active 2022 CARMELA DIA-KURTIS RA null, PA [...] Name and Address Organization Details Recorded Time 200224 Celebrex medicatio n itching Not available Not available 08/05/2022 [id number] 7 RxNorm CARMELA DIA-ZAIRAE RA null, PA - [facility] 3 11:24:58 [id number] Effexor medicatio n Not available Not available Not available 08/05/2022 [id number] 2 RxNorm CARMELA DIA-RIVE RA null, PA - [facility] 3 11:25:05 [id number] Zoloft medicatio n itching Not available Not available 08/05/2022 [id number] RxNorm CARMELA DIA-RIVE RA null, PA - [facility] 3 11:25:14 [id number] Bactrim medicatio n other Not available Not available 08/05/2022 67455 9 RxNorm CARMELA DIA-RIVE RA null, PA [...] e) 50 mcg/actuati on nasal spray,suspe nsion [place] 1 spray every day by intranasa l [...] Updated DateTime 3 167.64 cm 29.7 kg/m2 89735 g 8 18 /min 100 % 100 [...] Updated DateTime 4 167.64 cm 27.4 kg/m2 37799.7 g 99 % 99 % 81 /min [...] 30 mcg/0.3 mL dose 12/12/2020 completed CARMELA renae, PA - [facility] 08/05/2022 11:24:30 Tdap 04/15/2017 completed CARMELA LIRA null, PA - [facility] 08/05/2022 11:24:30 Tdap 12/26/2013 completed CARMELA renae, PA - [facility] 08/05/2022 11:24:30 Influenza, split virus, quadrivalent, PF 12/04/2019 completed CARMELA renae, PA - [facility] 08/05/2022 11:24:30 Past Encounters Encounter ID Performer Location Encounter Start Date Encounter Closed Date Diagnosis/Indication Diagnosis SNOMED-CT Code Diagnosis ICD10 Code Diagnosis Note [id number] [facility] [address] [place] [address] 12/21/2019 09:07:36 12/21/2019 10:41:02 [id number] Yonis Barber NP [facility] [address] [place] [address] 08/05/2022 09:00:43 08/05/2022 11:51:15 Acute sinusitis 43137684 J01.90 [id number] [facility] Connors [address] [address] [place] [address] 04/26/2023 09:15:10 04/26/2023 09:47:22 Herpes labialis [id number] B00.1 You have been diagnosed with a [...] Concerns Section Related Observation LastModified by Organization Detai ls LastModified Time None Recorded Concern Status LastModified by Organization Details LastModified Time None Recorded Advance Directives Directive None Recorded Payers Encounter Date Sequence Insurance Name Policy Number Policy Rodriguez Covered Member ID Rodriguez Member ID Guarantor Name 12/21/2019 1 [employer] [place] [id number] [facility] [id number] [facility] 08/05/2022 1 [employer] [place] [id number] [facility] [id number] [facility] 04/26/2023 1 [facility] [id number] [facility] [id number] [facility] Notes Date Note Type Note Provider Name and Address Organization Details Recorded Time 08/05/2022 text/html CongestionReport ed bypatient.Notes:nasal congestion with post nasal drip x 3 days. denies nay fever or fever with chills. no SOB or respiratory distress.Ear Pain Brief HPIReported bypatient.Location:pain radiates to neck; bilateral Onset/Timing:intermitte nt pain; gradual onset Duration:occurs daily; sensation/episode variable length Quality:aching pain;sharp pain Severity:getting worse; current pain /10 Context:recent ear infection Alleviating factors:ototopical antibiotics: ; nasal steroid spray Aggravating factors:sinus infections; allergies; irrigation of ear Associated Symptoms:Cough;nasal congestion;nasal discharge Yonis Barber NP [address] [place], [address], [place] - [facility] 08/05/2022 11:50:27 04/26/2023 text/html 43 y/o female he re with blisters on her lips for the past few days, worsening. Has been very stressed recently. Has had cold sores in the past C[facility] Connors [address] [place], [address], [place] - [facility] 04/26/2023 09:50:29 OBGyn Episode No OBEpisode recorded.
== END 2024-07-09 17:15 | disposition home or self-care (01) ==
PROVIDERS: PCP Internal Medicine; Visit Provider Internal Medicine
DX: I10 Essential (primary) hypertension (principal); M51.360 Other intervertebral disc degeneration, lumbar region with discogenic back pain only; E66.9 Obesity, unspecified; Z68.30 Body mass index [BMI] 30.0-30.9, adult; E55.9 Vitamin D deficiency, unspecified; Q63.1 Lobulated, fused and horseshoe kidney; N20.0 Calculus of kidney; F41.9 Anxiety disorder, unspecified

== ENCOUNTER 2024-07-09 16:02 | Outpatient (REF) | payer OTHER, SELFPAY | END 2024-07-09 16:03 | disposition home or self-care (01) | LOC: HO.LNP 16:02 | PROVIDERS: PCP Internal Medicine; Visit Provider Internal Medicine | DX: Z12.4 Encounter for screening for malignant neoplasm of cervix (principal); I10 Essential (primary) hypertension; M51.360 Other intervertebral disc degeneration, lumbar region with discogenic back pain only; E55.9 Vitamin D deficiency, unspecified; N20.0 Calculus of kidney; F41.9 Anxiety disorder, unspecified; E66.9 Obesity, unspecified; Z68.30 Body mass index [BMI] 30.0-30.9, adult; Q63.1 Lobulated, fused and horseshoe kidney; Z79.899 Other long term (current) drug therapy | CPT/HCPCS: 88175; 96127 ==

== ENCOUNTER 2024-08-20 11:27 | Outpatient (REF) | payer OTHER, SELFPAY ==
--- NOTE | ~2024-08-20 | US_ITS ---
CLINICAL HISTORY: N83.209 - Unspecified ovarian cyst, unspecified side --- Additional Notes or Specia l Instructions: Follow-up on findings of pelvic ultrasound recommending 6-12 week repeat US pelvis transvaginal Comparison: None Findings: Transvaginal scanning performed. The uterus is 8.8 cm length. Two subcentimeter fibroids are incidentally noted. Possible additional subcentimeter echogenic fibroid abutting the endometrium. No endometrial lesion, 9 mm thickness. Nabothian cysts are present. Right ovary: 3.1 x 1.7 x 2.8 cm. Complex 15 mm cyst. Left ovary: 2.3 x 0.9 x 1.7 cm. No current cysts. Normal color Doppler of both ovaries. No free fluid. IMPRESSION: Complex right adnexal cyst measuring up to 15 mm, smaller than prior. No left adnexal cysts. This document has been electronically signed by: Vicente Henry MD on 08/21/2024 04:57:33
--- OUTSIDE RECORDS SUMMARY | 2024-08-20 13:03 | XMS_ITS | Patient Health Record ---
Author Organization [facility] [address] Address [address] [place] [address] Care Team Providers Care Insight Director Name Role Phone DEJA MORA Unavailable [phone] Allergies Allergen (clinical drug ingredient) Drug/Non Drug Allergy documented on EMR Reaction Allergy Type Onset Date Status celecoxib CeleBREX itch Drug Allergy Active Effexor itch Drug Allergy Active sertraline Zoloft itch Drug Allergy Active Reason For Referral No Information Medications Medication SIG (Take, Route, Frequency, Duration) Notes Start Date End Date Status Wegovy 0.25 MG/0.5ML Inject 0.25 mg Subcutaneous weekly for 28 days 08/02/2024 Active amLODIPine Besylate 5 MG 1 tablet Orally Once a day Active LORazepam 0.5 MG Oral for 30 Days Active buPROPion HCl ER (XL) 150 MG TAKE 1 TABLET BY MOUTH EVERY MORNING FOR ANXIETY Oral for 30 Days Not-Taking Problems Problem Type SNOMED Code ICD Code Onset Dates Problem Status W/U Status Risk Notes Problem Horseshoe kidney (disorder) (37410151) Lobulated, 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 Problem Essential hypertension (69305831) Essential hypertension (I10) Active confirmed Problem Anxiety (21296618) Anxiety (F41.9) Active confi rmed Problem Nephrolithiasis (83325413) Nephrolithiasis (N20.0) Active confirmed Problem BMI 30+ - obesity (944246773) BMI 32.0-32.9,adult (Z68.32) Active confirmed Problem Adult-onset obesity (982888392) Adult-onset obesity (E66.9) Active confirmed Vital Signs Heart Rate 85 /min 08/02/2024 Oximetry 99 % 08/02/2024 Blood pressure diastolic 82 mm Hg 08/02/2024 Height 63 in 08/02/2024 Blood pressure systolic 132 mm Hg 08/02/2024 Weight 185.8 lbs 08/02/2024 BMI 32.91 kg/m2 08/02/2024 Encounters Encounter Location Date Provider Diagnosis [facility] [address] [address] 08/02/2024 DEJA MORA Adult-onset obesity E66.9 ; BMI 32.0-32.9,adult Z68.32 ; Essential hypertension I10 ; Anxiety F41.9 ; Nephrolithiasis N20.0 ; Lobulated, fused and horseshoe kidney Q63.1 and Nutritional counseling Z71.3 [facility] [address] [address] 08/02/2024 DEJA MORA Assessments Encounter Date Diagnosis (ICD Code) Assessment Notes Treatment Notes Treatment Clinical Notes Section Notes 08/02/2024 BMI 32.0-32.9,adult (ICD-10 - Z68.32) Shirlene is a 44-year-old female with history of obesity who presents to the office today for weight management consult. Medical history, labs, allergies, medications, and social history reviewed with the patient. Provided education on healthy diet and lifestyle which includes high-protein, low carbohydrate, high-fiber, and a variety of fruits and vegetables. Patient encouraged to exercise with emphasis on resistance training minimum 3 times per week to maintain muscle mass and cardio to burn fat. All patient questions answered. Patient will follow-up in 2 to 4 weeks for weight management. 08/02/2024: Weight 185 pounds, BMI 32.91. Seca scan completed and discussed with the patient. On body analysis 45.7% of her weight is fat mass amounting 85 pounds. Fat mass index is 14.8. She has 40 pounds of muscle which is high for her body composition. Visceral adiposity is high at 2.2 L. Patient has been adopting lifestyle modifications over the past 3+ months including practicing portion control, avoiding processed foods, limiting carbohydrate intake, and exercising 3 times per week. Previously was on Ozempic for about 2 months a few years ago with her PCP and did well on this medication. Does not have history of diabetes. She would be a good candidate for Wegovy. We discussed proper use of the medication and its side effects including but not limited to nausea, constipation, abdominal pain, or heartburn. Reports no history of absolute contraindications to GLP-1's. Follow-up in 4 to 6 weeks. # Hypertension: Blood pressure is stable in office today 132/82. Continue amlodipine 5 mg daily. # Anxiety: Continue lorazepam 0.5 mg once daily as needed for breakthrough anxiety. # Nephrolithiasis: Reports history of kidney stones as well as horseshoe kidney. Continue with increased hydration. Patient reports no abdominal pain or flank pain at this time. Will continue to monitor, please follow-up with PCP. Patient was reassured and welcomed to the practice. We discussed that we stress a hollistic medical approach with emphasis on lifestyle modification. Patient was informed that a healthy lifestyle with exercise and good eating habits can help reduce their risk of medical complications. Patient is explained that obesity increases their risk of diabetes, cardiovascular disease, or organ damage. We spent a lot of time discussing the relationship between food, exercise, sleep, mental health and obesity. Patient was counseled on the importance EATING local, organic food when possible. Patient was educated on clean 15 and dirty dozen. I provided information about reading books called The Food Rules by Ricardo Escamilla and Eat Fat Get Lean by Dr Benjamin Boyd. Self education is important in the journey for weight management. Patient was offered diagnostic testing/ SECA scale. We want to measure visceral adiposity, advanced body composition, adverse lipids, fatty acid balance, risk for heart disease and atherosclerosis, markers of inflammation and genetic susceptibility. Patient was counseled on weight management and was advised to lose weight using A. Meal Replacement Products Patient was educated on the replacement products called optifast. This is a good way of taking fixed amount of calories. It has been shown in studies to be ineffective weight management tool. This however has to be coupled with lifestyle intervention as well as laboratory data and EKG monitoring. It is impossible to know how a person will tolerate complete meal replacement. The side effects of meal replacement and weight loss could include syncopal attacks, dizziness, gallstones, potential cholecystectomy, possible heart attack and even . The benefits of meal replacement would be potential weight loss but no guarantees can be made. Meal replacement products are not covered by insurance. Once the patient has bought these products we cannot return them B. Lifestyle management which includes several strategies as below 1. Eat a low carbohydrate good fat good protein diet. Eliminate refined carbohydrates from the diet. Limit sugared beverages. Eat local organic when possible. Cook your own meals. Read food labels. Focus on healthy snacks. Portion control and food with low glycemic index 2. Exercise regularly. Try to get at least 6000 steps a day. Use a predominant to track activity level. Consider using apps like 7 minute excercise, Sweet Toothpal, lose it, stick as needed for self-monitoring and weight management. Consider group exercises. Consider hiring a executive personal assistant. Regular exercise is valdez to sustainable health and prevents as a buffer against weight regain 3. Sleep is most important for healing. Try to sleep at least 6-8 hours a night. A good quality sleep needs a sleep ritual with ideal room temperature of around 68. It might help to take a shower and have no electronics in the room and sleep in a very dark room without artificial light. Start sleep routine and get up early in the morning and go to bed on time. 4. Make a social connection. Surround yourself with positive people with positive energy. Connect with friends and family. 5. Get into the habit of meditating and mindfulness while doing everything. 6. Go outside and connect with nature. C. Prescription medications Patient was educated on the use of prescription medications for medical weight loss. This is a growing list and includes phentermine, Topamax,Qsymia, contrave, belviq and saxenda, wegovy etc. All prescription medications could have side effects including but not limited to kidney stones, seizure disorder cardiac arrhythmias heart attack pancreatitis, GI effects, Etc. Patient was encouraged to read the prescription insert and have coaching with their pharmacist and make an informed decision about taking medication and know that these medications are being prescribed with good intentions and we do not know how a patient would react to the medication. Some medications are FDA approved for weight loss and there is also off label use depending on patient's inability to afford medications in an attempt to lose weight D. Behavioral counseling was done to establish a relationship between food and an mood. Patient was provided information about local counseling and psychiatry and Dr Coronado at [facility]. We would like to cover regular topics and build on low glycemic eating exercise mindful eating, using yoga and meditation along with deep breathing and connecting with friends and family. E. MASS PAT reviewed, Patient's current medications were reviewed and opinion was given on medication that can cause weight gain and can be substituted F. Patient was assessed for risk with obesity including and not limiting to atherosclerosis heart disease stroke kidney disease, restrictive lung disease, irritable bowel syndrome and overall mortality. Risk of developing prediabetes diabetes and metabolic syndrome was discussed G. Therapeutic plan: We have decided to make therapeutic plan which would include choosing wisely on calories restricting portion getting active, tracking weight, getting good quality sleep and working on time management H. Patient will follow up in 4 weeks for weight management Total time spent today was 60 minutes of which greater than 50% was spent on coordinating and counseling After consultation and careful review of medical history, this patient would benefit from Wegovy based off of the following criteria met: Patient is over the age of 18, has a BMI of 32.91. Additional comorbidities include hypertension, anxiety, nephrolithiasis, and horseshoe kidney. Patient has trialed other methods of weight loss including improving diet, exercise without success over three months. This medication is prescribed by or in consultation with a board certified obesity and weight management physician (Dr. Camila Milan or Dr. Nicole Milan). Case discussed with collaborating physician César Milan who reviewed the assessment and plan. Chart, medications, labs, vital signs reviewed. Dictation was accomplished with the use of [employer] voice recognition software, prone to medical misidentifications and grammatical errors. This is unintentional and the practitioner does try to identify and correct these, but some could still be present. Please do not hesitate to contact practitioner for clarification. All questions answered to patients satisfaction. Patient verbalized understanding of diagnosis and treatments explained. To call sooner prior to next visit it any questions/concerns arise. 08/02/2024 Adult-onset obesity (ICD-10 - E66.9) Shirlene is a 44-year-old female with history of obesity who presents to the office today for weight management consult. Medical history, labs, allergies, medications, and social history reviewed with the patient. Provided education on healthy diet and lifestyle which includes high-protein, low carbohydrate, high-fiber, and a variety of fruits and vegetables. Patient encouraged to exercise with emphasis on resistance training minimum 3 times per week to maintain muscle mass and cardio to burn fat. All patient questions answered. Patient will follow-up in 2 to 4 weeks for weight management. 08/02/2024: Weight 185 pounds, BMI 32.91. Seca scan completed and discussed with the patient. On body analysis 45.7% of her weight is fat mass amounting 85 pounds. Fat mass index is 14.8. She has 40 pounds of muscle which is high for her body composition. Visceral adiposity is high at 2.2 L. Patient has been adopting lifestyle modifications over the past 3+ months including practicing portion control, avoiding processed foods, limiting carbohydrate intake, and exercising 3 times per week. Previously was on Ozempic for about 2 months a few years ago with her PCP and did well on this medication. Does not have history of diabetes. She would be a good candidate for Wegovy. We discussed proper use of the medication and its side effects including but not limited to nausea, constipation, abdominal pain, or heartburn. Reports no history of absolute contraindications to GLP-1's. Follow-up in 4 to 6 weeks. # Hypertension: Blood pressure is stable in office today 132/82. Continue amlodipine 5 mg daily. # Anxiety: Continue lorazepam 0.5 mg once daily as needed for breakthrough anxiety. # Nephrolithiasis: Reports history of kidney stones as well as horseshoe kidney. Continue with increased hydration. Patient reports no abdominal pain or flank pain at this time. Will continue to monitor, please follow-up with PCP. Patient was reassured and welcomed to the practice. We discussed that we stress a hollistic medical approach with emphasis on lifestyle modification. Patient was informed that a healthy lifestyle with exercise and good eating habits can help reduce their risk of medical complications. Patient is explained that obesity increases their risk of diabetes, cardiovascular disease, or organ damage. We spent a lot of time discussing the relationship between food, exercise, sleep, mental health and obesity. Patient was counseled on the importance EATING local, organic food when possible. Patient was educated on clean 15 and dirty dozen. I provided information about reading books called The Food Rules by Ricardo Escamilla and Eat Fat Get Lean by Dr Benjamin Boyd. Self education is important in the journey for weight management. Patient was offered diagnostic testing/ SECA scale. We want to measure visceral adiposity, advanced body composition, adverse lipids, fatty acid balance, risk for heart disease and atherosclerosis, markers of inflammation and genetic susceptibility. Patient was counseled on weight management and was advised to lose weight using A. Meal Replacement Products Patient was educated on the replacement products called optifast. This is a good way of taking fixed amount of calories. It has been shown in studies to be ineffective weight management tool. This however has to be coupled with lifestyle intervention as well as laboratory data and EKG monitoring. It is impossible to know how a person will tolerate complete meal replacement. The side effects of meal replacement and weight loss could include syncopal attacks, dizziness, gallstones, potential cholecystectomy, possible heart attack and even . The benefits of meal replacement would be potential weight loss but no guarantees can be made. Meal replacement products are not covered by insurance. Once the patient has bought these products we cannot return them B. Lifestyle management which includes several strategies as below 1. Eat a low carbohydrate good fat good protein diet. Eliminate refined carbohydrates from the diet. Limit sugared beverages. Eat local organic when possible. Cook your own meals. Read food labels. Focus on healthy snacks. Portion control and food with low glycemic index 2. Exercise regularly. Try to get at least 6000 steps a day. Use a predominant to track activity level. Consider using apps like 7 minute [employer]ractice Ignitionise, Sweet Toothpal, lose it, stick as needed for self-monitoring and weight management. Consider group exercises. Consider hiring a executive personal assistant. Regular exercise is valdez to sustainable health and prevents as a buffer against weight regain 3. Sleep is most important for healing. Try to sleep at least 6-8 hours a night. A good quality sleep needs a sleep ritual with ideal room temperature of around 68. It might help to take a shower and have no electronics in the room and sleep in a very dark room without artificial light. Start sleep routine and get up early in the morning and go to bed on time. 4. Make a social connection. Surround yourself with positive people with positive energy. Connect with friends and family. 5. Get into the habit of meditating and mindfulness while doing everything. 6. Go outside and connect with nature. C. Prescription medications Patient was educated on the use of prescription medications for medical weight loss. This is a growing list and includes phentermine, Topamax,Qsymia, contrave, belviq and saxenda, wegovy etc. All prescription medications could have side effects including but not limited to kidney stones, seizure disorder cardiac arrhythmias heart attack pancreatitis, GI effects, Etc. Patient was encouraged to read the prescription insert and have coaching with their pharmacist and make an informed decision about taking medication and know that these medications are being prescribed with good intentions and we do not know how a patient would react to the medication. Some medications are FDA approved for weight loss and there is also off label use depending on patient's inability to afford medications in an attempt to lose weight D. Behavioral counseling was done to establish a relationship between food and an mood. Patient was provided information about local counseling and psychiatry and Dr Coronado at [facility]. We would like to cover regular topics and build on low glycemic eating exercise mindful eating, using yoga and meditation along with deep breathing and connecting with friends and family. E. MASS PAT reviewed, Patient's current medications were reviewed and opinion was given on medication that can cause weight gain and can be substituted F. Patient was assessed for risk with obesity including and not limiting to atherosclerosis heart disease stroke kidney disease, restrictive lung disease, irritable bowel syndrome and overall mortality. Risk of developing prediabetes diabetes and metabolic syndrome was discussed G. Therapeutic plan: We have decided to make therapeutic plan which would include choosing wisely on calories restricting portion getting active, tracking weight, getting good quality sleep and working on time management H. Patient will follow up in 4 weeks for weight management Total time spent today was 60 minutes of which greater than 50% was spent on coordinating and counseling After consultation and careful review of medical history, this patient would benefit from Wegovy based off of the following criteria met: Patient is over the age of 18, has a BMI of 32.91. Additional comorbidities include hypertension, anxiety, nephrolithiasis, and horseshoe kidney. Patient has trialed other methods of weight loss including improving diet, exercise without success over three months. This medication is prescribed by or in consultation with a board certified obesity and weight management physician (Dr. Camila Milan or Dr. Nicole Milan). Case discussed with collaborating physician César Milan who reviewed the assessment and plan. Chart, medications, labs, vital signs reviewed. Dictation was accomplished with the use of [employer] voice recognition software, prone to medical misidentifications and grammatical errors. This is unintentional and the practitioner does try to identify and correct these, but some could still be present. Please do not hesitate to contact practitioner for clarification. All questions answered to patients satisfaction. Patient verbalized understanding of diagnosis and treatments explained. To call sooner prior to next visit it any questions/concerns arise. 08/02/2024 Essential hypertension (ICD-10 - I10) Shirlene is a 44-year-old female with history of obesity who presents to the office today for weight management consult. Medical history, labs, allergies, medications, and social history reviewed with the patient. Provided education on healthy diet and lifestyle which includes high-protein, low carbohydrate, high-fiber, and a variety of fruits and vegetables. Patient encouraged to exercise with emphasis on resistance training minimum 3 times per week to maintain muscle mass and cardio to burn fat. All patient questions answered. Patient will follow-up in 2 to 4 weeks for weight management. 08/02/2024: Weight 185 pounds, BMI 32.91. Seca scan completed and discussed with the patient. On body analysis 45.7% of her weight is fat mass amounting 85 pounds. Fat mass index is 14.8. She has 40 pounds of muscle which is high for her body composition. Visceral adiposity is high at 2.2 L. Patient has been adopting lifestyle modifications over the past 3+ months including practicing portion control, avoiding processed foods, limiting carbohydrate intake, and exercising 3 times per week. Previously was on Ozempic for about 2 months a few years ago with her PCP and did well on this medication. Does not have history of diabetes. She would be a good candidate for Wegovy. We discussed proper use of the medication and its side effects including but not limited to nausea, constipation, abdominal pain, or heartburn. Reports no history of absolute contraindications to GLP-1's. Follow-up in 4 to 6 weeks. # Hypertension: Blood pressure is stable in office today 132/82. Continue amlodipine 5 mg daily. # Anxiety: Continue lorazepam 0.5 mg once daily as needed for breakthrough anxiety. # Nephrolithiasis: Reports history of kidney stones as well as horseshoe kidney. Continue with increased hydration. Patient reports no abdominal pain or flank pain at this time. Will continue to monitor, please follow-up with PCP. Patient was reassured and welcomed to the practice. We discussed that we stress a hollistic medical approach with emphasis on lifestyle modification. Patient was informed that a healthy lifestyle with exercise and good eating habits can help reduce their risk of medical complications. Patient is explained that obesity increases their risk of diabetes, cardiovascular disease, or organ damage. We spent a lot of time discussing the relationship between food, exercise, sleep, mental health and obesity. Patient was counseled on the importance EATING local, organic food when possible. Patient was educated on clean 15 and dirty dozen. I provided information about reading books called The Food Rules by Ricardo Escamilla and Eat Fat Get Lean by Dr Benjamin Boyd. Self education is important in the journey for weight management. Patient was offered diagnostic testing/ SECA scale. We want to measure visceral adiposity, advanced body composition, adverse lipids, fatty acid balance, risk for heart disease and atherosclerosis, markers of inflammation and genetic susceptibility. Patient was counseled on weight management and was advised to lose weight using A. Meal Replacement Products Patient was educated on the replacement products called optifast. This is a good way of taking fixed amount of calories. It has been shown in studies to be ineffective weight management tool. This however has to be coupled with lifestyle intervention as well as laboratory data and EKG monitoring. It is impossible to know how a person will tolerate complete meal replacement. The side effects of meal replacement and weight loss could include syncopal attacks, dizziness, gallstones, potential cholecystectomy, possible heart attack and even . The benefits of meal replacement would be potential weight loss but no guarantees can be made. Meal replacement products are not covered by insurance. Once the patient has bought these products we cannot return them B. Lifestyle management which includes several strategies as below 1. Eat a low carbohydrate good fat good protein diet. Eliminate refined carbohydrates from the diet. Limit sugared beverages. Eat local organic when possible. Cook your own meals. Read food labels. Focus on healthy snacks. Portion control and food with low glycemic index 2. Exercise regularly. Try to get at least 6000 steps a day. Use a predominant to track activity level. Consider using apps like 7 minute excercise, myfitnesspal, lose it, stick as needed for self-monitoring and weight management. Consider group exercises. Consider hiring a executive personal assistant. Regular exercise is valdez to sustainable health and prevents as a buffer against weight regain 3. Sleep is most important for healing. Try to sleep at least 6-8 hours a night. A good quality sleep needs a sleep ritual with ideal room temperature of around 68. It might help to take a shower and have no electronics in the room and sleep in a very dark room without artificial light. Start sleep routine and get up early in the morning and go to bed on time. 4. Make a social connection. Surround yourself with positive people with positive energy. Connect with friends and family. 5. Get into the habit of meditating and mindfulness while doing everything. 6. Go outside and connect with nature. C. Prescription medications Patient was educated on the use of prescription medications for medical weight loss. This is a growing list and includes phentermine, Topamax,Qsymia, contrave, belviq and saxenda, wegovy etc. All prescription medications could have side effects including but not limited to kidney stones, seizure disorder cardiac arrhythmias heart attack pancreatitis, GI effects, Etc. Patient was encouraged to read the prescription insert and have coaching with their pharmacist and make an informed decision about taking medication and know that these medications are being prescribed with good intentions and we do not know how a patient would react to the medication. Some medications are FDA approved for weight loss and there is also off label use depending on patient's inability to afford medications in an attempt to lose weight D. Behavioral counseling was done to establish a relationship between food and an mood. Patient was provided information about local counseling and psychiatry and Dr Coronado at [facility]. We would like to cover regular topics and build on low glycemic eating exercise mindful eating, using yoga and meditation along with deep breathing and connecting with friends and family. E. MASS PAT reviewed, Patient's current medications were reviewed and opinion was given on medication that can cause weight gain and can be substituted F. Patient was assessed for risk with obesity including and not limiting to atherosclerosis heart disease stroke kidney disease, restrictive lung disease, irritable bowel syndrome and overall mortality. Risk of developing prediabetes diabetes and metabolic syndrome was discussed G. Therapeutic plan: We have decided to make therapeutic plan which would include choosing wisely on calories restricting portion getting active, tracking weight, getting good quality sleep and working on time management H. Patient will follow up in 4 weeks for weight management Total time spent today was 60 minutes of which greater than 50% was spent on coordinating and counseling After consultation and careful review of medical history, this patient would benefit from Brijeshy based off of the following criteria met: Patient is over the age of 18, has a BMI of 32.91. Additional comorbidities include hypertension, anxiety, nephrolithiasis, and horseshoe kidney. Patient has trialed other methods of weight loss including improving diet, exercise without success over three months. This medication is prescribed by or in consultation with a board certified obesity and weight management physician (Dr. Camila Milan or Dr. Nicole Milan). Case discussed with collaborating physician César Milan who reviewed the assessment and plan. Chart, medications, labs, vital signs reviewed. Dictation was accomplished with the use of [employer] voice recognition software, prone to medical misidentifications and grammatical errors. This is unintentional and the practitioner does try to identify and correct these, but some could still be present. Please do not hesitate to contact practitioner for clarification. All questions answered to patients satisfaction. Patient verbalized understanding of diagnosis and treatments explained. To call sooner prior to next visit it any questions/concerns arise. 08/02/2024 Anxiety (ICD-10 - F41.9) Shirlene is a 44-year-old female with history of obesity who presents to the office today for weight management consult. Medical history, labs, allergies, medications, and social history reviewed with the patient. Provided education on healthy diet and lifestyle which includes high-protein, low carbohydrate, high-fiber, and a variety of fruits and vegetables. Patient encouraged to exercise with emphasis on resistance training minimum 3 times per week to maintain muscle mass and cardio to burn fat. All patient questions answered. Patient will follow-up in 2 to 4 weeks for weight management. 08/02/2024: Weight 185 pounds, BMI 32.91. Seca scan completed and discussed with the patient. On body analysis 45.7% of her weight is fat mass amounting 85 pounds. Fat mass index is 14.8. She has 40 pounds of muscle which is high for her body composition. Visceral adiposity is high at 2.2 L. Patient has been adopting lifestyle modifications over the past 3+ months including practicing portion control, avoiding processed foods, limiting carbohydrate intake, and exercising 3 times per week. Previously was on Ozempic for about 2 months a few years ago with her PCP and did well on this medication. Does not have history of diabetes. She would be a good candidate for Wegovy. We discussed proper use of the medication and its side effects including but not limited to nausea, constipation, abdominal pain, or heartburn. Reports no history of absolute contraindications to GLP-1's. Follow-up in 4 to 6 weeks. # Hypertension: Blood pressure is stable in office today 132/82. Continue amlodipine 5 mg daily. # Anxiety: Continue lorazepam 0.5 mg once daily as needed for breakthrough anxiety. # Nephrolithiasis: Reports history of kidney stones as well as horseshoe kidney. Continue with increased hydration. Patient reports no abdominal pain or flank pain at this time. Will continue to monitor, please follow-up with PCP. Patient was reassured and welcomed to the practice. We discussed that we stress a hollistic medical approach with emphasis on lifestyle modification. Patient was informed that a healthy lifestyle with exercise and good eating habits can help reduce their risk of medical complications. Patient is explained that obesity increases their risk of diabetes, cardiovascular disease, or organ damage. We spent a lot of time discussing the relationship between food, exercise, sleep, mental health and obesity. Patient was counseled on the importance EATING local, organic food when possible. Patient was educated on clean 15 and dirty dozen. I provided information about reading books called The Food Rules by Ricardo Escamilla and Eat Fat Get Lean by Dr Benjamin Boyd. Self education is important in the journey for weight management. Patient was offered diagnostic testing/ SECA scale. We want to measure visceral adiposity, advanced body composition, adverse lipids, fatty acid balance, risk for heart disease and atherosclerosis, markers of inflammation and genetic susceptibility. Patient was counseled on weight management and was advised to lose weight using A. Meal Replacement Products Patient was educated on the replacement products called optifast. This is a good way of taking fixed amount of calories. It has been shown in studies to be ineffective weight management tool. This however has to be coupled with lifestyle intervention as well as laboratory data and EKG monitoring. It is impossible to know how a person will tolerate complete meal replacement. The side effects of meal replacement and weight loss could include syncopal attacks, dizziness, gallstones, potential cholecystectomy, possible heart attack and even . The benefits of meal replacement would be potential weight loss but no guarantees can be made. Meal replacement products are not covered by insurance. Once the patient has bought these products we cannot return them B. Lifestyle management which includes several strategies as below 1. Eat a low carbohydrate good fat good protein diet. Eliminate refined carbohydrates from the diet. Limit sugared beverages. Eat local organic when possible. Cook your own meals. Read food labels. Focus on healthy snacks. Portion control and food with low glycemic index 2. Exercise regularly. Try to get at least 6000 steps a day. Use a predominant to track activity level. Consider using apps like 7 minute excercise, myfitnesspal, lose it, stick as needed for self-monitoring and weight management. Consider group exercises. Consider hiring a executive personal assistant. Regular exercise is valdez to sustainable health and prevents as a buffer against weight regain 3. Sleep is most important for healing. Try to sleep at least 6-8 hours a night. A good quality sleep needs a sleep ritual with ideal room temperature of around 68. It might help to take a shower and have no electronics in the room and sleep in a very dark room without artificial light. Start sleep routine and get up early in the morning and go to bed on time. 4. Make a social connection. Surround yourself with positive people with positive energy. Connect with friends and family. 5. Get into the habit of meditating and mindfulness while doing everything. 6. Go outside and connect with nature. C. Prescription medications Patient was educated on the use of prescription medications for medical weight loss. This is a growing list and includes phentermine, Topamax,Qsymia, contrave, belviq and saxenda, wegovy etc. All prescription medications could have side effects including but not limited to kidney stones, seizure disorder cardiac arrhythmias heart attack pancreatitis, GI effects, Etc. Patient was encouraged to read the prescription insert and have coaching with their pharmacist and make an informed decision about taking medication and know that these medications are being prescribed with good intentions and we do not know how a patient would react to the medication. Some medications are FDA approved for weight loss and there is also off label use depending on patient's inability to afford medications in an attempt to lose weight D. Behavioral counseling was done to establish a relationship between food and an mood. Patient was provided information about local counseling and psychiatry and Dr Coronado at [facility]. We would like to cover regular topics and build on low glycemic eating exercise mindful eating, using yoga and meditation along with deep breathing and connecting with friends and family. E. MASS PAT reviewed, Patient's current medications were reviewed and opinion was given on medication that can cause weight gain and can be substituted F. Patient was assessed for risk with obesity including and not limiting to atherosclerosis heart disease stroke kidney disease, restrictive lung disease, irritable bowel syndrome and overall mortality. Risk of developing prediabetes diabetes and metabolic syndrome was discussed G. Therapeutic plan: We have decided to make therapeutic plan which would include choosing wisely on calories restricting portion getting active, tracking weight, getting good quality sleep and working on time management H. Patient will follow up in 4 weeks for weight management Total time spent today was 60 minutes of which greater than 50% was spent on coordinating and counseling After consultation and careful review of medical history, this patient would benefit from Wegovy based off of the following criteria met: Patient is over the age of 18, has a BMI of 32.91. Additional comorbidities include hypertension, anxiety, nephrolithiasis, and horseshoe kidney. Patient has trialed other methods of weight loss including improving diet, exercise without success over three months. This medication is prescribed by or in consultation with a board certified obesity and weight management physician (Dr. Camila Milan or Dr. Nicole Milan). Case discussed with collaborating physician César Milan who reviewed the assessment and plan. Chart, medications, labs, vital signs reviewed. Dictation was accomplished with the use of [employer] voice recognition software, prone to medical misidentifications and grammatical errors. This is unintentional and the practitioner does try to identify and correct these, but some could still be present. Please do not hesitate to contact practitioner for clarification. All questions answered to patients satisfaction. Patient verbalized understanding of diagnosis and treatments explained. To call sooner prior to next visit it any questions/concerns arise. 08/02/2024 Nephrolithiasis (ICD-10 - N20.0) Shirlene is a 44-year-old female with history of obesity who presents to the office today for weight management consult. Medical history, labs, allergies, medications, and social history reviewed with the patient. Provided education on healthy diet and lifestyle which includes high-protein, low carbohydrate, high-fiber, and a variety of fruits and vegetables. Patient encouraged to exercise with emphasis on resistance training minimum 3 times per week to maintain muscle mass and cardio to burn fat. All patient questions answered. Patient will follow-up in 2 to 4 weeks for weight management. 08/02/2024: Weight 185 pounds, BMI 32.91. Seca scan completed and discussed with the patient. On body analysis 45.7% of her weight is fat mass amounting 85 pounds. Fat mass index is 14.8. She has 40 pounds of muscle which is high for her body composition. Visceral adiposity is high at 2.2 L. Patient has been adopting lifestyle modifications over the past 3+ months including practicing portion control, avoiding processed foods, limiting carbohydrate intake, and exercising 3 times per week. Previously was on Ozempic for about 2 months a few years ago with her PCP and did well on this medication. Does not have history of diabetes. She would be a good candidate for Wegovy. We discussed proper use of the medication and its side effects including but not limited to nausea, constipation, abdominal pain, or heartburn. Reports no history of absolute contraindications to GLP-1's. Follow-up in 4 to 6 weeks. # Hypertension: Blood pressure is stable in office today 132/82. Continue amlodipine 5 mg daily. # Anxiety: Continue lorazepam 0.5 mg once daily as needed for breakthrough anxiety. # Nephrolithiasis: Reports history of kidney stones as well as horseshoe kidney. Continue with increased hydration. Patient reports no abdominal pain or flank pain at this time. Will continue to monitor, please follow-up with PCP. Patient was reassured and welcomed to the practice. We discussed that we stress a hollistic medical approach with emphasis on lifestyle modification. Patient was informed that a healthy lifestyle with exercise and good eating habits can help reduce their risk of medical complications. Patient is explained that obesity increases their risk of diabetes, cardiovascular disease, or organ damage. We spent a lot of time discussing the relationship between food, exercise, sleep, mental health and obesity. Patient was counseled on the importance EATING local, organic food when possible. Patient was educated on clean 15 and dirty dozen. I provided information about reading books called The Food Rules by Ricardo Escamilla and Eat Fat Get Lean by Dr Benjamin Boyd. Self education is important in the journey for weight management. Patient was offered diagnostic testing/ SECA scale. We want to measure visceral adiposity, advanced body composition, adverse lipids, fatty acid balance, risk for heart disease and atherosclerosis, markers of inflammation and genetic susceptibility. Patient was counseled on weight management and was advised to lose weight using A. Meal Replacement Products Patient was educated on the replacement products called optifast. This is a good way of taking fixed amount of calories. It has been shown in studies to be ineffective weight management tool. This however has to be coupled with lifestyle intervention as well as laboratory data and EKG monitoring. It is impossible to know how a person will tolerate complete meal replacement. The side effects of meal replacement and weight loss could include syncopal attacks, dizziness, gallstones, potential cholecystectomy, possible heart attack and even . The benefits of meal replacement would be potential weight loss but no guarantees can be made. Meal replacement products are not covered by insurance. Once the patient has bought these products we cannot return them B. Lifestyle management which includes several strategies as below 1. Eat a low carbohydrate good fat good protein diet. Eliminate refined carbohydrates from the diet. Limit sugared beverages. Eat local organic when possible. Cook your own meals. Read food labels. Focus on healthy snacks. Portion control and food with low glycemic index 2. Exercise regularly. Try to get at least 6000 steps a day. Use a predominant to track activity level. Consider using apps like 7 minute excercise, Sweet Toothpal, lose it, stick as needed for self-monitoring and weight management. Consider group exercises. Consider hiring a executive personal assistant. Regular exercise is valdez to sustainable health and prevents as a buffer against weight regain 3. Sleep is most important for healing. Try to sleep at least 6-8 hours a night. A good quality sleep needs a sleep ritual with ideal room temperature of around 68. It might help to take a shower and have no electronics in the room and sleep in a very dark room without artificial light. Start sleep routine and get up early in the morning and go to bed on time. 4. Make a social connection. Surround yourself with positive people with positive energy. Connect with friends and family. 5. Get into the habit of meditating and mindfulness while doing everything. 6. Go outside and connect with nature. C. Prescription medications Patient was educated on the use of prescription medications for medical weight loss. This is a growing list and includes phentermine, Topamax,Qsymia, contrave, belviq and saxenda, wegovy etc. All prescription medications could have side effects including but not limited to kidney stones, seizure disorder cardiac arrhythmias heart attack pancreatitis, GI effects, Etc. Patient was encouraged to read the prescription insert and have coaching with their pharmacist and make an informed decision about taking medication and know that these medications are being prescribed with good intentions and we do not know how a patient would react to the medication. Some medications are FDA approved for weight loss and there is also off label use depending on patient's inability to afford medications in an attempt to lose weight D. Behavioral counseling was done to establish a relationship between food and an mood. Patient was provided information about local counseling and psychiatry and Dr Coronado at [facility]. We would like to cover regular topics and build on low glycemic eating exercise mindful eating, using yoga and meditation along with deep breathing and connecting with friends and family. E. MASS PAT reviewed, Patient's current medications were reviewed and opinion was given on medication that can cause weight gain and can be substituted F. Patient was assessed for risk with obesity including and not limiting to atherosclerosis heart disease stroke kidney disease, restrictive lung disease, irritable bowel syndrome and overall mortality. Risk of developing prediabetes diabetes and metabolic syndrome was discussed G. Therapeutic plan: We have decided to make therapeutic plan which would include choosing wisely on calories restricting portion getting active, tracking weight, getting good quality sleep and working on time management H. Patient will follow up in 4 weeks for weight management Total time spent today was 60 minutes of which greater than 50% was spent on coordinating and counseling After consultation and careful review of medical history, this patient would benefit from Wegovy based off of the following criteria met: Patient is over the age of 16, has a BMI of 32.91. Additional comorbidities include hypertension, anxiety, nephrolithiasis, and horseshoe kidney. Patient has trialed other methods of weight loss including improving diet, exercise without success over three months. This medication is prescribed by or in consultation with a board certified obesity and weight management physician (Dr. Camila Milan or Dr. Nicole Milan). Case discussed with collaborating physician César Milan who reviewed the assessment and plan. Chart, medications, labs, vital signs reviewed. Dictation was accomplished with the use of [employer] voice recognition software, prone to medical misidentifications and grammatical errors. This is unintentional and the practitioner does try to identify and correct these, but some could still be present. Please do not hesitate to contact practitioner for clarification. All questions answered to patients satisfaction. Patient verbalized understanding of diagnosis and treatments explained. To call sooner prior to next visit it any questions/concerns arise. 08/02/2024 Lobulated, fused and horseshoe kidney (ICD-10 - Q63.1) Shirlene is a 44-year-old female with history of obesity who presents to the office today for weight management consult. Medical history, labs, allergies, medications, and social history reviewed with the patient. Provided education on healthy diet and lifestyle which includes high-protein, low carbohydrate, high-fiber, and a variety of fruits and vegetables. Patient encouraged to exercise with emphasis on resistance training minimum 3 times per week to maintain muscle mass and cardio to burn fat. All patient questions answered. Patient will follow-up in 2 to 4 weeks for weight management. 08/02/2024: Weight 185 pounds, BMI 32.91. Seca scan completed and discussed with the patient. On body analysis 45.7% of her weight is fat mass amounting 85 pounds. Fat mass index is 14.8. She has 40 pounds of muscle which is high for her body composition. Visceral adiposity is high at 2.2 L. Patient has been adopting lifestyle modifications over the past 3+ months including practicing portion control, avoiding processed foods, limiting carbohydrate intake, and exercising 3 times per week. Previously was on Ozempic for about 2 months a few years ago with her PCP and did well on this medication. Does not have history of diabetes. She would be a good candidate for Wegovy. We discussed proper use of the medication and its side effects including but not limited to nausea, constipation, abdominal pain, or heartburn. Reports no history of absolute contraindications to GLP-1's. Follow-up in 4 to 6 weeks. # Hypertension: Blood pressure is stable in office today 132/82. Continue amlodipine 5 mg daily. # Anxiety: Continue lorazepam 0.5 mg once daily as needed for breakthrough anxiety. # Nephrolithiasis: Reports history of kidney stones as well as horseshoe kidney. Continue with increased hydration. Patient reports no abdominal pain or flank pain at this time. Will continue to monitor, please follow-up with PCP. Patient was reassured and welcomed to the practice. We discussed that we stress a hollistic medical approach with emphasis on lifestyle modification. Patient was informed that a healthy lifestyle with exercise and good eating habits can help reduce their risk of medical complications. Patient is explained that obesity increases their risk of diabetes, cardiovascular disease, or organ damage. We spent a lot of time discussing the relationship between food, exercise, sleep, mental health and obesity. Patient was counseled on the importance EATING local, organic food when possible. Patient was educated on clean 15 and dirty dozen. I provided information about reading books called The Food Rules by Ricardo Escamilla and Eat Fat Get Lean by Dr Benjamin Boyd. Self education is important in the journey for weight management. Patient was offered diagnostic testing/ SECA scale. We want to measure visceral adiposity, advanced body composition, adverse lipids, fatty acid balance, risk for heart disease and atherosclerosis, markers of inflammation and genetic susceptibility. Patient was counseled on weight management and was advised to lose weight using A. Meal Replacement Products Patient was educated on the replacement products called optifast. This is a good way of taking fixed amount of calories. It has been shown in studies to be ineffective weight management tool. This however has to be coupled with lifestyle intervention as well as laboratory data and EKG monitoring. It is impossible to know how a person will tolerate complete meal replacement. The side effects of meal replacement and weight loss could include syncopal attacks, dizziness, gallstones, potential cholecystectomy, possible heart attack and even . The benefits of meal replacement would be potential weight loss but no guarantees can be made. Meal replacement products are not covered by insurance. Once the patient has bought these products we cannot return them B. Lifestyle management which includes several strategies as below 1. Eat a low carbohydrate good fat good protein diet. Eliminate refined carbohydrates from the diet. Limit sugared beverages. Eat local organic when possible. Cook your own meals. Read food labels. Focus on healthy snacks. Portion control and food with low glycemic index 2. Exercise regularly. Try to get at least 6000 steps a day. Use a predominant to track activity level. Consider using apps like 7 minute excercise, myfitnesspal, lose it, stick as needed for self-monitoring and weight management. Consider group exercises. Consider hiring a executive personal assistant. Regular exercise is valdez to sustainable health and prevents as a buffer against weight regain 3. Sleep is most important for healing. Try to sleep at least 6-8 hours a night. A good quality sleep needs a sleep ritual with ideal room temperature of around 68. It might help to take a shower and have no electronics in the room and sleep in a very dark room without artificial light. Start sleep routine and get up early in the morning and go to bed on time. 4. Make a social connection. Surround yourself with positive people with positive energy. Connect with friends and family. 5. Get into the habit of meditating and mindfulness while doing everything. 6. Go outside and connect with nature. C. Prescription medications Patient was educated on the use of prescription medications for medical weight loss. This is a growing list and includes phentermine, Topamax,Qsymia, contrave, belviq and saxenda, wegovy etc. All prescription medications could have side effects including but not limited to kidney stones, seizure disorder cardiac arrhythmias heart attack pancreatitis, GI effects, Etc. Patient was encouraged to read the prescription insert and have coaching with their pharmacist and make an informed decision about taking medication and know that these medications are being prescribed with good intentions and we do not know how a patient would react to the medication. Some medications are FDA approved for weight loss and there is also off label use depending on patient's inability to afford medications in an attempt to lose weight D. Behavioral counseling was done to establish a relationship between food and an mood. Patient was provided information about local counseling and psychiatry and Dr Coronado at [facility]. We would like to cover regular topics and build on low glycemic eating exercise mindful eating, using yoga and meditation along with deep breathing and connecting with friends and family. E. MASS PAT reviewed, Patient's current medications were reviewed and opinion was given on medication that can cause weight gain and can be substituted F. Patient was assessed for risk with obesity including and not limiting to atherosclerosis heart disease stroke kidney disease, restrictive lung disease, irritable bowel syndrome and overall mortality. Risk of developing prediabetes diabetes and metabolic syndrome was discussed G. Therapeutic plan: We have decided to make therapeutic plan which would include choosing wisely on calories restricting portion getting active, tracking weight, getting good quality sleep and working on time management H. Patient will follow up in 4 weeks for weight management Total time spent today was 60 minutes of which greater than 50% was spent on coordinating and counseling After consultation and careful review of medical history, this patient would benefit from Wegovy based off of the following criteria met: Patient is over the age of 18, has a BMI of 32.91. Additional comorbidities include hypertension, anxiety, nephrolithiasis, and horseshoe kidney. Patient has trialed other methods of weight loss including improving diet, exercise without success over three months. This medication is prescribed by or in consultation with a board certified obesity and weight management physician (Dr. Camila Milan or Dr. Nicole Milan). Case discussed with collaborating physician César Milan who reviewed the assessment and plan. Chart, medications, labs, vital signs reviewed. Dictation was accomplished with the use of [employer] voice recognition software, prone to medical misidentifications and grammatical errors. This is unintentional and the practitioner does try to identify and correct these, but some could still be present. Please do not hesitate to contact practitioner for clarification. All questions answered to patients satisfaction. Patient verbalized understanding of diagnosis and treatments explained. To call sooner prior to next visit it any questions/concerns arise. 08/02/2024 Nutritional counseling (ICD-10 - Z71.3) Shirlene is a 44-year-old female with history of obesity who presents to the office today for weight management consult. Medical history, labs, allergies, medications, and social history reviewed with the patient. Provided education on healthy diet and lifestyle which includes high-protein, low carbohydrate, high-fiber, and a variety of fruits and vegetables. Patient encouraged to exercise with emphasis on resistance training minimum 3 times per week to maintain muscle mass and cardio to burn fat. All patient questions answered. Patient will follow-up in 2 to 4 weeks for weight management. 08/02/2024: Weight 185 pounds, BMI 32.91. Seca scan completed and discussed with the patient. On body analysis 45.7% of her weight is fat mass amounting 85 pounds. Fat mass index is 14.8. She has 40 pounds of muscle which is high for her body composition. Visceral adiposity is high at 2.2 L. Patient has been adopting lifestyle modifications over the past 3+ months including practicing portion control, avoiding processed foods, limiting carbohydrate intake, and exercising 3 times per week. Previously was on Ozempic for about 2 months a few years ago with her PCP and did well on this medication. Does not have history of diabetes. She would be a good candidate for Wegovy. We discussed proper use of the medication and its side effects including but not limited to nausea, constipation, abdominal pain, or heartburn. Reports no history of absolute contraindications to GLP-1's. Follow-up in 4 to 6 weeks. # Hypertension: Blood pressure is stable in office today 132/82. Continue amlodipine 5 mg daily. # Anxiety: Continue lorazepam 0.5 mg once daily as needed for breakthrough anxiety. # Nephrolithiasis: Reports history of kidney stones as well as horseshoe kidney. Continue with increased hydration. Patient reports no abdominal pain or flank pain at this time. Will continue to monitor, please follow-up with PCP. Patient was reassured and welcomed to the practice. We discussed that we stress a hollistic medical approach with emphasis on lifestyle modification. Patient was informed that a healthy lifestyle with exercise and good eating habits can help reduce their risk of medical complications. Patient is explained that obesity increases their risk of diabetes, cardiovascular disease, or organ damage. We spent a lot of time discussing the relationship between food, exercise, sleep, mental health and obesity. Patient was counseled on the importance EATING local, organic food when possible. Patient was educated on clean 15 and dirty dozen. I provided information about reading books called The Food Rules by Ricardo Escamilla and Eat Fat Get Lean by Dr Benjamin Boyd. Self education is important in the journey for weight management. Patient was offered diagnostic testing/ SECA scale. We want to measure visceral adiposity, advanced body composition, adverse lipids, fatty acid balance, risk for heart disease and atherosclerosis, markers of inflammation and genetic susceptibility. Patient was counseled on weight management and was advised to lose weight using A. Meal Replacement Products Patient was educated on the replacement products called optifast. This is a good way of taking fixed amount of calories. It has been shown in studies to be ineffective weight management tool. This however has to be coupled with lifestyle intervention as well as laboratory data and EKG monitoring. It is impossible to know how a person will tolerate complete meal replacement. The side effects of meal replacement and weight loss could include syncopal attacks, dizziness, gallstones, potential cholecystectomy, possible heart attack and even . The benefits of meal replacement would be potential weight loss but no guarantees can be made. Meal replacement products are not covered by insurance. Once the patient has bought these products we cannot return them B. Lifestyle management which includes several strategies as below 1. Eat a low carbohydrate good fat good protein diet. Eliminate refined carbohydrates from the diet. Limit sugared beverages. Eat local organic when possible. Cook your own meals. Read food labels. Focus on healthy snacks. Portion control and food with low glycemic index 2. Exercise regularly. Try to get at least 6000 steps a day. Use a predominant to track activity level. Consider using apps like 7 minute excercise, myLitblocpal, lose it, stick as needed for self-monitoring and weight management. Consider group exercises. Consider hiring a executive personal assistant. Regular exercise is valdez to sustainable health and prevents as a buffer against weight regain 3. Sleep is most important for healing. Try to sleep at least 6-8 hours a night. A good quality sleep needs a sleep ritual with ideal room temperature of around 68. It might help to take a shower and have no electronics in the room and sleep in a very dark room without artificial light. Start sleep routine and get up early in the morning and go to bed on time. 4. Make a social connection. Surround yourself with positive people with positive energy. Connect with friends and family. 5. Get into the habit of meditating and mindfulness while doing everything. 6. Go outside and connect with nature. C. Prescription medications Patient was educated on the use of prescription medications for medical weight loss. This is a growing list and includes phentermine, Topamax,Qsymia, contrave, belviq and saxenda, wegovy etc. All prescription medications could have side effects including but not limited to kidney stones, seizure disorder cardiac arrhythmias heart attack pancreatitis, GI effects, Etc. Patient was encouraged to read the prescription insert and have coaching with their pharmacist and make an informed decision about taking medication and know that these medications are being prescribed with good intentions and we do not know how a patient would react to the medication. Some medications are FDA approved for weight loss and there is also off label use depending on patient's inability to afford medications in an attempt to lose weight D. Behavioral counseling was done to establish a relationship between food and an mood. Patient was provided information about local counseling and psychiatry and Dr Coronado at [facility]. We would like to cover regular topics and build on low glycemic eating exercise mindful eating, using yoga and meditation along with deep breathing and connecting with friends and family. E. MASS PAT reviewed, Patient's current medications were reviewed and opinion was given on medication that can cause weight gain and can be substituted F. Patient was assessed for risk with obesity including and not limiting to atherosclerosis heart disease stroke kidney disease, restrictive lung disease, irritable bowel syndrome and overall mortality. Risk of developing prediabetes diabetes and metabolic syndrome was discussed G. Therapeutic plan: We have decided to make therapeutic plan which would include choosing wisely on calories restricting portion getting active, tracking weight, getting good quality sleep and working on time management H. Patient will follow up in 4 weeks for weight management Total time spent today was 60 minutes of which greater than 50% was spent on coordinating and counseling After consultation and careful review of medical history, this patient would benefit from Wegovy based off of the following criteria met: Patient is over the age of 18, has a BMI of 32.91. Additional comorbidities include hypertension, anxiety, nephrolithiasis, and horseshoe kidney. Patient has trialed other methods of weight loss including improving diet, exercise without success over three months. This medication is prescribed by or in consultation with a board certified obesity and weight management physician (Dr. Camila Milan or Dr. Nicole Milan). Case discussed with collaborating physician César Milan who reviewed the assessment and plan. Chart, medications, labs, vital signs reviewed. Dictation was accomplished with the use of [employer] voice recognition software, prone to medical misidentifications and grammatical errors. This is unintentional and the practitioner does try to identify and correct these, but some could still be present. Please do not hesitate to contact practitioner for clarification. All questions answered to patients satisfaction. Patient verbalized understanding of diagnosis and treatments explained. To call sooner prior to next visit it any questions/concerns arise. Plan Of Treatment Next Appt Details Provider Name:DEJA MORA , 09/05/2024 11:30:00 AM, [address] [facility], [facility] [address], [place], [address], Insurance Providers Payer Name Payer Address Payer Phone Subscriber Number Group Number Insured Name Patient Relationship to Insured Coverage Start Date Coverage End Date [facility] [address] [place] [address] [id number] COUNT INCLUDES THE [facility] Self - patient is the insured 4 Medical (General) History Medical History History ICD Code high blood pressure anxiety kidney stones Hospitalization History Reason Date(Month/Year) kidney stones 11/26/2021
== END 2024-08-20 11:28 | disposition home or self-care (01) ==
LOC: HO.US 11:27
PROVIDERS: PCP Internal Medicine; Visit Provider Advanced Practice Midwife
DX: N83.209 Unspecified ovarian cyst, unspecified side (principal)
CPT/HCPCS: 76830; 76856

== ENCOUNTER → 2024-08-20 11:29 | Outpatient (BNV) | payer OTHER, SELFPAY | PROVIDERS: PCP Internal Medicine; Visit Provider Radiology Vascular & Interventional Radiology | DX: N83.291 Other ovarian cyst, right side (principal) | CPT/HCPCS: 76830; 76856 ==

== ENCOUNTER 2024-10-24 15:41 | Outpatient (AMB) | payer OTHER, SELFPAY ==
--- NOTE | 2024-10-24 15:41 | MHC.OFFVIS ---
Intake Visit Reasons: TV US results [phone] Intake Note: cell # [phone] Floating Operator: Floating Operator Present Allergies celecoxib (From Celebrex) Allergy (Intermediate, Verified 10/24/24 15:41) Itching metronidazole Allergy (Unknown, Verified 10/24/24 15:41) Rash sertraline (Zoloft) Allergy (Unknown, Verified 10/24/24 15:41) Itching sulfamethoxazole (From BACTRIM) Allergy (Unknown, Verified 10/24/24 15:41) Itching trimethoprim (From BACTRIM) Allergy (Unknown, Verified 10/24/24 15:41) Itching naproxen (From Naprosyn) Allergy (Verified 10/24/24 15:41) Itching venlafaxine (From Effexor) Allergy (Verified 10/24/24 15:41) Itching tramadol Adverse Reaction (Intermediate, Verified 10/24/24 15:41) Nausea alprazolam (From XANAX) Adverse Reaction (Mild, Verified 10/24/24 15:41) Confusion Sulfa (Sulfonamide Antibiotics) Adverse Reaction (Unknown, Verified 10/24/24 15:41) yeast infection Is last menstrual period known: Yes Last menstrual period: 10/18/24 HPI Comments Details: Tele Health Visit Total time I personally spent on visit and management today: 24 minutes. Time spent included review of pertinent office notes in the electronic health record; review of laboratory and imaging results; review of personal family medical history; discussing diagnosis and plan of care with the patient; documenting the encounter in the EMR. Patient presents to discuss: Ultrasound results ordered by Colleen Darby CNM. She reports last 2 menstrual cycles were intense with increased blood flow in discomfort, cramping and back pain. Cycles are normally x4 days last 2 cycles were shorter 2-3 days. History of fibroids. [facility] Medical History Fibroid Breast cancer screening by mammogram (~06/11/23) HPV (human papilloma virus) infection Renal calculi Pyelonephritis Lumbar degenerative disc disease Horseshoe kidney Anxiety Obesity (BMI 30-39.9) Benign essential hypertension Gestational HTN Surgical History History of extraction of renal calculus Back pain with history of spinal surgery H/O wrist surgery Family History Father HIV (human immunodeficiency virus infection) Mother CVD (cardiovascular disease) Maternal Grandmother Breast cancer Diabetes Hypertension Maternal Grandfather Prostate cancer Paternal Grandmother CVD (cardiovascular disease) Paternal Grandfather Prostate cancer Sister In good health CHF (congestive heart failure) Son In good health Social History Household Members: Spouse Housing: Apartment Are you a primary urgent care nurse practitioner to a significant other at home: No Do you presently have visiting nurse or other home services: No Alcohol intake: never Patient Tobacco Use Status: Never used Tobacco e-Cigarette/Vaping Use: Never Used Second Hand Smoke Exposure: No service: No (H[employer]) Current occupational status: employed Cognitive needs: No Hearing needs: No Vision needs: No Female Reproductive History Menstrual Age of Menarche: 11 Date of last menstrual period: 10/18/24 Review of Systems Const All systems reviewed & are unremarkable except as noted in HPI and below Endo Reports no additional complaints Physical Exam Const General: cooperative, healthy appearing and no acute distress Psych Appearance: well kempt Attitude: cooperative Thought process: Normal thought process present Telehealth Telehealth Telehealth Platform: [employer] Location of provider rendering services: practice address Location of patient: address on file Patient Identification confirmed using: Name, : Yes Telehealth method: video Patient verbally consented to treatment: Yes Patient verbally consented to billing insurance company: Yes Patient informed of any privacy concerns related to visit: Yes Results Reviewed Results Reviewed: [address] [address] Ultrasound Report Signed Patient: Shirlene Mcdermott MR#: [id number] : 1980 Acct:[id number] Age/Sex: 44 / F ADM Date: 08/20/24 Loc: HO. Attending Dr: Colleen Darby CNM Ordering Physician: Colleen Darby CNM Date of Service: 08/20/24 Procedure(s): US pelvic and transvaginal Accession Number(s): [id number] cc: Elier Olmstead MD; ReaganColleen Squires CNM~ CLINICAL HISTORY: N83.209 - Unspecified ovarian cyst, unspecified side --- Additional Notes or Special Instructions: Follow-up on findings of pelvic ultrasound recommending 6-12 week repeat US pelvis transvaginal Comparison: None Findings: Transvaginal scanning performed. The uterus is 8.8 cm length. Two subcentimeter fibroids are incidentally noted. Possible additional subcentimeter echogenic fibroid abutting the endometrium. No endometrial lesion, 9 mm thickness. Nabothian cysts are present. Right ovary: 3.1 x 1.7 x 2.8 cm. Complex 15 mm cyst. Left ovary: 2.3 x 0.9 x 1.7 cm. No current cysts. Normal color Doppler of both ovaries. No free fluid. IMPRESSION: Complex right adnexal cyst measuring up to 15 mm, smaller than prior. No left adnexal cysts. 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 No left adnexal cysts. See report for details on fibroids. Counseled re: Leiomyoma: common pelvic neoplasm. Differential diagnosis-may include but not limited to- leiomyosarcoma which is a rare uterine sarcoma 3-7/100,000, difficult to distinguish from fibroids on ultrasound from uterine sarcoma's. Unlikely any single test will have a highly positive predictive value. Hysterectomy is not recommended for sole purpose of excluding malignant neoplasm. Consult for surgical exploration, medical treatment, other treatments, verses expectant management, pros and cons, risks and benefits. Expectant management follow up in 6 months, then yearly for stability. Patient prefers to proceed with expectant management. Referral to MD if indicated for level of care if indicated Report any AUB, pelvic pressure, bloating, or pain. (2) Dysmenorrhea: Code(s): N94.6 - Dysmenorrhea, unspecified Plan: Reviewed grfo-[id number]-[id number] self-help measures including the use of her ibuprofen, always take with food and as directed. (3) Complex ovarian cyst: Code(s): N83.299 - Other ovarian cyst, unspecified side Category: Medical Plan: Counseled regarding findings of: Complex ovarian cyst, which is often benign, and most resolve on their own overtime, noted reduction in previous scan. Some develop into premalignant or malignant tumors. Limitations of testing for diagnostic purposes. Further monitoring and evaluation is recommended with US, possible CT, or MRI study. Referral to [facility] or general gynecology for MD care if indicated for possible surgical consult. Follow test results appointment to be scheduled. All of her questions and concerns were addressed to the best of my ability and shared decision making. She is agreeable to the plan of care. This note is constructed using voice recognition software. While every effort has been made to ensure accuracy, retail marketing manager errors may have been included. (4) Fibroid: Comment: X3 Code(s): D21.9 - Benign neoplasm of connective and other soft tissue, unspecified Category: Medical Plan Options for dysmenorrhea treatment including OTC medications, contraception, other. She has ibuprofen on hand, and will attempt to utilize in the 1st few days of her menstrual cramping. Follow up pending ultrasound and evaluate therapy. Advised to call sooner if needed. The patient expressed understanding and agreement with the plan of care. All of her questions and concerns were addressed to the best of my ability. This note is constructed using voice recognition software. While every effort has been made to ensure accuracy, retail marketing manager errors may have been included. Orders: Orders US pelvic and transvaginal Today N83.299 - Other ovarian cyst, unspecified side Coding Level of Care Code Tele Est Pt Level 3 (12692) Diagnoses Fibroid D21.9 Dysmenorrhea N94.6 Complex ovarian cyst N83.299
--- OUTSIDE RECORDS SUMMARY | 2024-10-24 16:26 | XMS_ITS | Patient Health Record ---
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 Assistant Name Role Phone DEJA MORA Unavailable [phone] Allergies Allergen (clinical drug ingredient) Drug/Non Drug Allergy documented on EMR Reaction Allergy Type Onset Date Status celecoxib CeleBREX itch Drug Allergy Active Effexor itch Drug Allergy Active sertraline Zoloft itch Drug Allergy Active Reason For Referral No Information Medications Medication SIG (Take, Route, Frequency, Duration) Notes Start Date End Date Status Wegovy 1 MG/0.5ML Inject 1 mg Subcutan eous weekly; Duration: 28 days 08/02/2024 Active amLODIPine Besylate 5 MG 1 tablet Orally Once a day Active LORazepam 0.5 MG Oral; Duration: 30 Days Active buPROPion HCl ER (XL) 150 MG TAKE 1 TABLET BY MOUTH EVERY MORNING FOR ANXIETY Oral; Duration: 30 Days Not-Taki ng Problems Problem Type SNOMED Code ICD Code Onset Dates Problem Status W/U Status Risk Notes Problem Horseshoe kidney (disorder) (92330086) Lobulated, 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 Problem Essential hypertension (01258372) Essential hypertension (I10) Active confirmed Problem Anxiety (93551795) Anxiety (F41.9) Active confi rmed Problem Nephrolithiasis (00101283) Nephrolithiasis (N20.0) Active confirmed Problem BMI 30+ - obesity (147791319) BMI 32.0-32.9,adult (Z68.32) Active confirmed Problem Body mass index 30.00 to 34.99 (014541702613754) BMI 31.0-31.9,adult (Z68.31) Active confirmed Problem Adult-onset obesity (802511878) Adult-onset obesity (E66.9) Active confirmed Vital Signs Heart Rate 85 /min 10/02/2024 Oximetry 97 % 10/02/2024 Blood pressure diastolic 80 mm Hg 10/02/2024 Height 63 in 10/02/2024 Blood pressure systolic 112 mm Hg 10/02/2024 Weight 180 lbs 10/02/2024 BMI 31.88 kg/m2 10/02/2024 Encounters Encounter Location Date Provider Diagnosis [facility] [address] [phone] 08/02/2024 DEJA MORA Adult-onset obesity E66.9 ; BMI 32.0-32.9,adult Z68.32 ; Essential hypertension I10 ; Anxiety F41.9 ; Nephrolithiasis N20.0 ; Lobulated, fused and horseshoe kidney Q63.1 and Nutritional counseling Z71.[address] [facility] [address] [address] 09/05/2024 DEJA MORA Adult-onset obesity E66.9 ; BMI 32.0-32.9,adult Z68.32 ; Essential hypertension I10 ; Anxiety F41.9 ; Nephrolithiasis N20.0 ; Lobulated, fused and horseshoe kidney Q63.1 and Nutritional counseling Z71.[address] [facility] [address] [phone] 10/02/2024 DEJA MORA BMI 31.0-31.9,adult Z68.31 ; Adult-onset obesity E66.9 ; Essential hypertension I10 ; Anxiety F41.9 ; Nephrolithiasis N20.0 ; Lobulated, fused and horseshoe kidney Q63.1 and Nutritional counseling Z71.[address] [facility] [address] [phone] 08/02/2024 DEJA MORA Assessments Encounter Date Diagnosis [...] management. Consider group exercises. Consider hiring a manager personal. Regular exercise is valdez to sustainable health [...] counseling and psychiatry and Dr Coronado at [facility]. We would like to cover regular topics [...] Dictation was accomplished with the use of Shoutly voice recognition software, prone to medical misidentifications [...] Consider using apps like 7 minute excercise, Nuvolapal, lose it, stick as needed for self-monitoring and weight management. Consider group exercises. Consider hiring a manager personal. Regular exercise is valdez to sustainable health [...] counseling and psychiatry and Dr Coronado at [facility]. We would like to cover regular topics [...] Dictation was accomplished with the use of Shoutly voice recognition software, prone to medical misidentifications and grammatical errors. This is unintentional and the practitioner does try to identify and correct these, but some could still be present. Please do not hesitate to contact practitioner for clarification. All questions answered to patients satisfaction. Patient verbalized understanding of diagnosis and treatments explained. To call sooner prior to next visit it any questions/concerns arise. 09/05/2024 BMI 32.0-32.9,adult (ICD-10 - Z68.32) Patient is here for weight management follow-up. We focused on significance of healthy lifestyle changes. We talked about need to track steps with goal between 6000-10,000 steps daily, focus on portion control, read food labels, get adequate sleep between 7 to 8 hours, get adequate rest to the body, meditate, frequent nutritious meals including vegetables and healthy choices of lean meats, fish, and elimination of refined carbohydrates. We also talked about mindfulness and mindful eating. Particular focus was on continuing portion control, mindful eating, and increasing resistance training. Total time of 30 minutes spent with patient with greater than 50% spent on counseling and coordinating care. 08/02/2024: Weight 185 pounds, BMI 32.91. Seca [...] GLP-1's. Follow-up in 4 to 6 weeks. 09/05/2024: Weight 185 pounds, BMI 32.77. Seca scan completed and discussed with the patient. Patient has had a 1 pound reduction of weight since her last visit. On body analysis she is up 1 pound of fat mass. Fat mass index today is 15.0. Has had a 2 pound reduction of muscle, discussed importance of protein in diet as well as resistance training. Visceral adiposity down from 2.2 to 1.8 L. Currently on Wegovy 0.25 mg weekly. After first dose had headache and nausea however since resolved. Discussed goals with diet and exercise. Plan is to increase to 0.5 mg and follow-up in 4 to 6 weeks. # Hypertension: Blood pressure is stable in office today 126/84. Continue amlodipine 5 mg daily. # Anxiety: Continue lorazepam 0.5 mg once daily as needed for breakthrough anxiety. # Nephrolithiasis: Reports history of kidney stones as well as horseshoe kidney. Continue with increased hydration. Patient reports no abdominal pain or flank pain at this time. Will continue to monitor, please follow-up with PCP. All questions have been answered to patient's satisfaction. Patient verbalized understanding of diagnosis and treatments explained. Advised to call sooner prior to next visit it any questions/concerns arise. Case discussed with collaborating physician Jocelyn Milan who reviewed the assessment and plan. Chart, medications, labs, vital signs reviewed. Dictation was accomplished with the use of Shoutly voice recognition software, which is prone to medical misidentifications and grammatical errors. This are unintentional and the practitioner does try to identify and correct these, but some could still be present. Please do not hesitate to contact practitioner for clarification. 09/05/2024 Adult-onset obesity (ICD-10 - E66.9) Patient is here for weight management follow-up. We focused on significance of healthy lifestyle changes. We talked about need to track steps with goal between 6000-10,000 steps daily, focus on portion control, read food labels, get adequate sleep between 7 to 8 hours, get adequate rest to the body, meditate, frequent nutritious meals including vegetables and healthy choices of lean meats, fish, and elimination of refined carbohydrates. We also talked about mindfulness and mindful eating. Particular focus was on continuing portion control, mindful eating, and increasing resistance training. Total time of 30 minutes spent with patient with greater than 50% spent on counseling and coordinating care. 08/02/2024: Weight 185 pounds, BMI 32.91. Seca [...] GLP-1's. Follow-up in 4 to 6 weeks. 09/05/2024: Weight 185 pounds, BMI 32.77. Seca scan completed and discussed with the patient. Patient has had a 1 pound reduction of weight since her last visit. On body analysis she is up 1 pound of fat mass. Fat mass index today is 15.0. Has had a 2 pound reduction of muscle, discussed importance of protein in diet as well as resistance training. Visceral adiposity down from 2.2 to 1.8 L. Currently on Wegovy 0.25 mg weekly. After first dose had headache and nausea however since resolved. Discussed goals with diet and exercise. Plan is to increase to 0.5 mg and follow-up in 4 to 6 weeks. # Hypertension: Blood pressure is stable in office today 126/84. Continue amlodipine 5 mg daily. # Anxiety: Continue lorazepam 0.5 mg once daily as needed for breakthrough anxiety. # Nephrolithiasis: Reports history of kidney stones as well as horseshoe kidney. Continue with increased hydration. Patient reports no abdominal pain or flank pain at this time. Will continue to monitor, please follow-up with PCP. All questions have been answered to patient's satisfaction. Patient verbalized understanding of diagnosis and treatments explained. Advised to call sooner prior to next visit it any questions/concerns arise. Case discussed with collaborating physician Jocelyn Milan who reviewed the assessment and plan. Chart, medications, labs, vital signs reviewed. Dictation was accomplished with the use of Shoutly voice recognition software, which is prone to medical misidentifications and grammatical errors. This are unintentional and the practitioner does try to identify and correct these, but some could still be present. Please do not hesitate to contact practitioner for clarification. 10/02/2024 BMI 31.0-31.9,adult (ICD-10 - Z68.31) Patient is here for weight management follow-up. We focused on significance of healthy lifestyle changes. We talked about need to track steps with goal between 6000-10,000 steps daily, focus on portion control, read food labels, get adequate sleep between 7 to 8 hours, get adequate rest to the body, meditate, frequent nutritious meals including vegetables and healthy choices of lean meats, fish, and elimination of refined carbohydrates. We also talked about mindfulness and mindful eating. Particular focus was on continuing portion control, mindful eating, and increasing resistance training. Total time of 30 minutes spent with patient with greater than 50% spent on counseling and coordinating care. 08/02/2024: Weight 185 pounds, BMI 32.91. Seca [...] GLP-1's. Follow-up in 4 to 6 weeks. 09/05/2024: Weight 185 pounds, BMI 32.77. Seca scan completed and discussed with the patient. Patient has had a 1 pound reduction of weight since her last visit. On body analysis she is up 1 pound of fat mass. Fat mass index today is 15.0. Has had a 2 pound reduction of muscle, discussed importance of protein in diet as well as resistance training. Visceral adiposity down from 2.2 to 1.8 L. Currently on Wegovy 0.25 mg weekly. After first dose had headache and nausea however since resolved. Discussed goals with diet and exercise. Plan is to increase to 0.5 mg and follow-up in 4 to 6 weeks. 10/02/2024: Weight 180 pounds, BMI 31.88. Seca scan completed and discussed results with the patient. She is down 5 pounds overall from her last visit. On body composition analysis she is down 4 pounds of fat mass. Fat mass index today is 14.3. She has had a minor less than 1 pound reduction of her muscle mass however maintains more muscle composition at 25.4% of body weight today. Visceral adiposity today is 2.1 L. Patient currently on Wegovy 0.5 mg weekly. Endorses mild heartburn with milk consumption as well as mild nausea and headache. Managing side effects with lifestyle modifications. We discussed goals of diet and exercise. Plan is to increase dose to 1 mg weekly of Wegovy and follow-up in 4 to 6 weeks. # Hypertension: Blood pressure is stable in office today 112/80. Continue amlodipine 5 mg daily. # Anxiety: Continue lorazepam 0.5 mg once daily as needed for breakthrough anxiety. # Nephrolithiasis: Reports history of kidney stones as well as horseshoe kidney. Continue with increased hydration. Patient reports no abdominal pain or flank pain at this time. Will continue to monitor, please follow-up with PCP. All questions have been answered to patient's satisfaction. Patient verbalized understanding of diagnosis and treatments explained. Advised to call sooner prior to next visit it any questions/concerns arise. Case discussed with collaborating physician Jocelyn Milan who reviewed the assessment and plan. Chart, medications, labs, vital signs reviewed. Dictation was accomplished with the use of Shoutly voice recognition software, which is prone to medical misidentifications and grammatical errors. This are unintentional and the practitioner does try to identify and correct these, but some could still be present. Please do not hesitate to contact practitioner for clarification. 10/02/2024 Adult-onset obesity (ICD-10 - E66.9) Patient is here for weight management follow-up. We focused on significance of healthy lifestyle changes. We talked about need to track steps with goal between 6000-10,000 steps daily, focus on portion control, read food labels, get adequate sleep between 7 to 8 hours, get adequate rest to the body, meditate, frequent nutritious meals including vegetables and healthy choices of lean meats, fish, and elimination of refined carbohydrates. We also talked about mindfulness and mindful eating. Particular focus was on continuing portion control, mindful eating, and increasing resistance training. Total time of 30 minutes spent with patient with greater than 50% spent on counseling and coordinating care. 08/02/2024: Weight 185 pounds, BMI 32.91. Seca [...] GLP-1's. Follow-up in 4 to 6 weeks. 09/05/2024: Weight 185 pounds, BMI 32.77. Seca scan completed and discussed with the patient. Patient has had a 1 pound reduction of weight since her last visit. On body analysis she is up 1 pound of fat mass. Fat mass index today is 15.0. Has had a 2 pound reduction of muscle, discussed importance of protein in diet as well as resistance training. Visceral adiposity down from 2.2 to 1.8 L. Currently on Wegovy 0.25 mg weekly. After first dose had headache and nausea however since resolved. Discussed goals with diet and exercise. Plan is to increase to 0.5 mg and follow-up in 4 to 6 weeks. 10/02/2024: Weight 180 pounds, BMI 31.88. Seca scan completed and discussed results with the patient. She is down 5 pounds overall from her last visit. On body composition analysis she is down 4 pounds of fat mass. Fat mass index today is 14.3. She has had a minor less than 1 pound reduction of her muscle mass however maintains more muscle composition at 25.4% of body weight today. Visceral adiposity today is 2.1 L. Patient currently on Wegovy 0.5 mg weekly. Endorses mild heartburn with milk consumption as well as mild nausea and headache. Managing side effects with lifestyle modifications. We discussed goals of diet and exercise. Plan is to increase dose to 1 mg weekly of Wegovy and follow-up in 4 to 6 weeks. # Hypertension: Blood pressure is stable in office today 112/80. Continue amlodipine 5 mg daily. # Anxiety: Continue lorazepam 0.5 mg once daily as needed for breakthrough anxiety. # Nephrolithiasis: Reports history of kidney stones as well as horseshoe kidney. Continue with increased hydration. Patient reports no abdominal pain or flank pain at this time. Will continue to monitor, please follow-up with PCP. All questions have been answered to patient's satisfaction. Patient verbalized understanding of diagnosis and treatments explained. Advised to call sooner prior to next visit it any questions/concerns arise. Case discussed with collaborating physician Jocelyn Milan who reviewed the assessment and plan. Chart, medications, labs, vital signs reviewed. Dictation was accomplished with the use of Shoutly voice recognition software, which is prone to medical misidentifications and grammatical errors. This are unintentional and the practitioner does try to identify and correct these, but some could still be present. Please do not hesitate to contact practitioner for clarification. 10/02/2024 Essential hypertension (ICD-10 - I10) Patient is here for weight management follow-up. We focused on significance of healthy lifestyle changes. We talked about need to track steps with goal between 6000-10,000 steps daily, focus on portion control, read food labels, get adequate sleep between 7 to 8 hours, get adequate rest to the body, meditate, frequent nutritious meals including vegetables and healthy choices of lean meats, fish, and elimination of refined carbohydrates. We also talked about mindfulness and mindful eating. Particular focus was on continuing portion control, mindful eating, and increasing resistance training. Total time of 30 minutes spent with patient with greater than 50% spent on counseling and coordinating care. 08/02/2024: Weight 185 pounds, BMI 32.91. Seca [...] GLP-1's. Follow-up in 4 to 6 weeks. 09/05/2024: Weight 185 pounds, BMI 32.77. Seca scan completed and discussed with the patient. Patient has had a 1 pound reduction of weight since her last visit. On body analysis she is up 1 pound of fat mass. Fat mass index today is 15.0. Has had a 2 pound reduction of muscle, discussed importance of protein in diet as well as resistance training. Visceral adiposity down from 2.2 to 1.8 L. Currently on Wegovy 0.25 mg weekly. After first dose had headache and nausea however since resolved. Discussed goals with diet and exercise. Plan is to increase to 0.5 mg and follow-up in 4 to 6 weeks. 10/02/2024: Weight 180 pounds, BMI 31.88. Seca scan completed and discussed results with the patient. She is down 5 pounds overall from her last visit. On body composition analysis she is down 4 pounds of fat mass. Fat mass index today is 14.3. She has had a minor less than 1 pound reduction of her muscle mass however maintains more muscle composition at 25.4% of body weight today. Visceral adiposity today is 2.1 L. Patient currently on Wegovy 0.5 mg weekly. Endorses mild heartburn with milk consumption as well as mild nausea and headache. Managing side effects with lifestyle modifications. We discussed goals of diet and exercise. Plan is to increase dose to 1 mg weekly of Wegovy and follow-up in 4 to 6 weeks. # Hypertension: Blood pressure is stable in office today 112/80. Continue amlodipine 5 mg daily. # Anxiety: Continue lorazepam 0.5 mg once daily as needed for breakthrough anxiety. # Nephrolithiasis: Reports history of kidney stones as well as horseshoe kidney. Continue with increased hydration. Patient reports no abdominal pain or flank pain at this time. Will continue to monitor, please follow-up with PCP. All questions have been answered to patient's satisfaction. Patient verbalized understanding of diagnosis and treatments explained. Advised to call sooner prior to next visit it any questions/concerns arise. Case discussed with collaborating physician Jocelyn Milan who reviewed the assessment and plan. Chart, medications, labs, vital signs reviewed. Dictation was accomplished with the use of Shoutly voice recognition software, which is prone to medical misidentifications and grammatical errors. This are unintentional and the practitioner does try to identify and correct these, but some could still be present. Please do not hesitate to contact practitioner for clarification. 08/02/2024 Essential hypertension (ICD-10 - I10) Shirlene [...] Consider using apps like 7 minute excercise, myArtomatixpal, lose it, stick as needed for self-monitoring and weight management. Consider group exercises. Consider hiring a manager personal. Regular exercise is valdez to sustainable health [...] counseling and psychiatry and Dr Coronado at [facility]. We would like to cover regular topics [...] Dictation was accomplished with the use of Shoutly voice recognition software, prone to medical misidentifications and grammatical errors. This is unintentional and the practitioner does try to identify and correct these, but some could still be present. Please do not hesitate to contact practitioner for clarification. All questions answered to patients satisfaction. Patient verbalized understanding of diagnosis and treatments explained. To call sooner prior to next visit it any questions/concerns arise. 09/05/2024 Essential hypertension (ICD-10 - I10) Patient is here for weight management follow-up. We focused on significance of healthy lifestyle changes. We talked about need to track steps with goal between 6000-10,000 steps daily, focus on portion control, read food labels, get adequate sleep between 7 to 8 hours, get adequate rest to the body, meditate, frequent nutritious meals including vegetables and healthy choices of lean meats, fish, and elimination of refined carbohydrates. We also talked about mindfulness and mindful eating. Particular focus was on continuing portion control, mindful eating, and increasing resistance training. Total time of 30 minutes spent with patient with greater than 50% spent on counseling and coordinating care. 08/02/2024: Weight 185 pounds, BMI 32.91. Seca [...] GLP-1's. Follow-up in 4 to 6 weeks. 09/05/2024: Weight 185 pounds, BMI 32.77. Seca scan completed and discussed with the patient. Patient has had a 1 pound reduction of weight since her last visit. On body analysis she is up 1 pound of fat mass. Fat mass index today is 15.0. Has had a 2 pound reduction of muscle, discussed importance of protein in diet as well as resistance training. Visceral adiposity down from 2.2 to 1.8 L. Currently on Wegovy 0.25 mg weekly. After first dose had headache and nausea however since resolved. Discussed goals with diet and exercise. Plan is to increase to 0.5 mg and follow-up in 4 to 6 weeks. # Hypertension: Blood pressure is stable in office today 126/84. Continue amlodipine 5 mg daily. # Anxiety: Continue lorazepam 0.5 mg once daily as needed for breakthrough anxiety. # Nephrolithiasis: Reports history of kidney stones as well as horseshoe kidney. Continue with increased hydration. Patient reports no abdominal pain or flank pain at this time. Will continue to monitor, please follow-up with PCP. All questions have been answered to patient's satisfaction. Patient verbalized understanding of diagnosis and treatments explained. Advised to call sooner prior to next visit it any questions/concerns arise. Case discussed with collaborating physician Jocelyn Milan who reviewed the assessment and plan. Chart, medications, labs, vital signs reviewed. Dictation was accomplished with the use of Shoutly voice recognition software, which is prone to medical misidentifications and grammatical errors. This are unintentional and the practitioner does try to identify and correct these, but some could still be present. Please do not hesitate to contact practitioner for clarification. 09/05/2024 Anxiety (ICD-10 - F41.9) Patient is here for weight management follow-up. We focused on significance of healthy lifestyle changes. We talked about need to track steps with goal between 6000-10,000 steps daily, focus on portion control, read food labels, get adequate sleep between 7 to 8 hours, get adequate rest to the body, meditate, frequent nutritious meals including vegetables and healthy choices of lean meats, fish, and elimination of refined carbohydrates. We also talked about mindfulness and mindful eating. Particular focus was on continuing portion control, mindful eating, and increasing resistance training. Total time of 30 minutes spent with patient with greater than 50% spent on counseling and coordinating care. 08/02/2024: Weight 185 pounds, BMI 32.91. Seca [...] GLP-1's. Follow-up in 4 to 6 weeks. 09/05/2024: Weight 185 pounds, BMI 32.77. Seca scan completed and discussed with the patient. Patient has had a 1 pound reduction of weight since her last visit. On body analysis she is up 1 pound of fat mass. Fat mass index today is 15.0. Has had a 2 pound reduction of muscle, discussed importance of protein in diet as well as resistance training. Visceral adiposity down from 2.2 to 1.8 L. Currently on Wegovy 0.25 mg weekly. After first dose had headache and nausea however since resolved. Discussed goals with diet and exercise. Plan is to increase to 0.5 mg and follow-up in 4 to 6 weeks. # Hypertension: Blood pressure is stable in office today 126/84. Continue amlodipine 5 mg daily. # Anxiety: Continue lorazepam 0.5 mg once daily as needed for breakthrough anxiety. # Nephrolithiasis: Reports history of kidney stones as well as horseshoe kidney. Continue with increased hydration. Patient reports no abdominal pain or flank pain at this time. Will continue to monitor, please follow-up with PCP. All questions have been answered to patient's satisfaction. Patient verbalized understanding of diagnosis and treatments explained. Advised to call sooner prior to next visit it any questions/concerns arise. Case discussed with collaborating physician Jocelyn Milan who reviewed the assessment and plan. Chart, medications, labs, vital signs reviewed. Dictation was accomplished with the use of [employer] voice recognition software, which is prone to medical misidentifications and grammatical errors. This are unintentional and the practitioner does try to identify and correct these, but some could still be present. Please do not hesitate to contact practitioner for clarification. 08/02/2024 Anxiety (ICD-10 - F41.9) Shirlene is [...] Consider using apps like 7 minute excercise, myArtomatixpal, lose it, stick as needed for self-monitoring and weight management. Consider group exercises. Consider hiring a manager personal. Regular exercise is valdez to sustainable health [...] counseling and psychiatry and Dr Coronado at [facility]. We would like to cover regular topics [...] Dictation was accomplished with the use of Shoutly voice recognition software, prone to medical misidentifications and grammatical errors. This is unintentional and the practitioner does try to identify and correct these, but some could still be present. Please do not hesitate to contact practitioner for clarification. All questions answered to patients satisfaction. Patient verbalized understanding of diagnosis and treatments explained. To call sooner prior to next visit it any questions/concerns arise. 10/02/2024 Anxiety (ICD-10 - F41.9) Patient is here for weight management follow-up. We focused on significance of healthy lifestyle changes. We talked about need to track steps with goal between 6000-10,000 steps daily, focus on portion control, read food labels, get adequate sleep between 7 to 8 hours, get adequate rest to the body, meditate, frequent nutritious meals including vegetables and healthy choices of lean meats, fish, and elimination of refined carbohydrates. We also talked about mindfulness and mindful eating. Particular focus was on continuing portion control, mindful eating, and increasing resistance training. Total time of 30 minutes spent with patient with greater than 50% spent on counseling and coordinating care. 08/02/2024: Weight 185 pounds, BMI 32.91. Seca [...] GLP-1's. Follow-up in 4 to 6 weeks. 09/05/2024: Weight 185 pounds, BMI 32.77. Seca scan completed and discussed with the patient. Patient has had a 1 pound reduction of weight since her last visit. On body analysis she is up 1 pound of fat mass. Fat mass index today is 15.0. Has had a 2 pound reduction of muscle, discussed importance of protein in diet as well as resistance training. Visceral adiposity down from 2.2 to 1.8 L. Currently on Wegovy 0.25 mg weekly. After first dose had headache and nausea however since resolved. Discussed goals with diet and exercise. Plan is to increase to 0.5 mg and follow-up in 4 to 6 weeks. 10/02/2024: Weight 180 pounds, BMI 31.88. Seca scan completed and discussed results with the patient. She is down 5 pounds overall from her last visit. On body composition analysis she is down 4 pounds of fat mass. Fat mass index today is 14.3. She has had a minor less than 1 pound reduction of her muscle mass however maintains more muscle composition at 25.4% of body weight today. Visceral adiposity today is 2.1 L. Patient currently on Wegovy 0.5 mg weekly. Endorses mild heartburn with milk consumption as well as mild nausea and headache. Managing side effects with lifestyle modifications. We discussed goals of diet and exercise. Plan is to increase dose to 1 mg weekly of Wegovy and follow-up in 4 to 6 weeks. # Hypertension: Blood pressure is stable in office today 112/80. Continue amlodipine 5 mg daily. # Anxiety: Continue lorazepam 0.5 mg once daily as needed for breakthrough anxiety. # Nephrolithiasis: Reports history of kidney stones as well as horseshoe kidney. Continue with increased hydration. Patient reports no abdominal pain or flank pain at this time. Will continue to monitor, please follow-up with PCP. All questions have been answered to patient's satisfaction. Patient verbalized understanding of diagnosis and treatments explained. Advised to call sooner prior to next visit it any questions/concerns arise. Case discussed with collaborating physician Jocelyn Milan who reviewed the assessment and plan. Chart, medications, labs, vital signs reviewed. Dictation was accomplished with the use of [employer] voice recognition software, which is prone to medical misidentifications and grammatical errors. This are unintentional and the practitioner does try to identify and correct these, but some could still be present. Please do not hesitate to contact practitioner for clarification. 10/02/2024 Nephrolithiasis (ICD-10 - N20.0) Patient is here for weight management follow-up. We focused on significance of healthy lifestyle changes. We talked about need to track steps with goal between 6000-10,000 steps daily, focus on portion control, read food labels, get adequate sleep between 7 to 8 hours, get adequate rest to the body, meditate, frequent nutritious meals including vegetables and healthy choices of lean meats, fish, and elimination of refined carbohydrates. We also talked about mindfulness and mindful eating. Particular focus was on continuing portion control, mindful eating, and increasing resistance training. Total time of 30 minutes spent with patient with greater than 50% spent on counseling and coordinating care. 08/02/2024: Weight 185 pounds, BMI 32.91. Seca [...] GLP-1's. Follow-up in 4 to 6 weeks. 09/05/2024: Weight 185 pounds, BMI 32.77. Seca scan completed and discussed with the patient. Patient has had a 1 pound reduction of weight since her last visit. On body analysis she is up 1 pound of fat mass. Fat mass index today is 15.0. Has had a 2 pound reduction of muscle, discussed importance of protein in diet as well as resistance training. Visceral adiposity down from 2.2 to 1.8 L. Currently on Wegovy 0.25 mg weekly. After first dose had headache and nausea however since resolved. Discussed goals with diet and exercise. Plan is to increase to 0.5 mg and follow-up in 4 to 6 weeks. 10/02/2024: Weight 180 pounds, BMI 31.88. Seca scan completed and discussed results with the patient. She is down 5 pounds overall from her last visit. On body composition analysis she is down 4 pounds of fat mass. Fat mass index today is 14.3. She has had a minor less than 1 pound reduction of her muscle mass however maintains more muscle composition at 25.4% of body weight today. Visceral adiposity today is 2.1 L. Patient currently on Wegovy 0.5 mg weekly. Endorses mild heartburn with milk consumption as well as mild nausea and headache. Managing side effects with lifestyle modifications. We discussed goals of diet and exercise. Plan is to increase dose to 1 mg weekly of Wegovy and follow-up in 4 to 6 weeks. # Hypertension: Blood pressure is stable in office today 112/80. Continue amlodipine 5 mg daily. # Anxiety: Continue lorazepam 0.5 mg once daily as needed for breakthrough anxiety. # Nephrolithiasis: Reports history of kidney stones as well as horseshoe kidney. Continue with increased hydration. Patient reports no abdominal pain or flank pain at this time. Will continue to monitor, please follow-up with PCP. All questions have been answered to patient's satisfaction. Patient verbalized understanding of diagnosis and treatments explained. Advised to call sooner prior to next visit it any questions/concerns arise. Case discussed with collaborating physician Jocelyn Milan who reviewed the assessment and plan. Chart, medications, labs, vital signs reviewed. Dictation was accomplished with the use of [employer] voice recognition software, which is prone to medical misidentifications and grammatical errors. This are unintentional and the practitioner does try to identify and correct these, but some could still be present. Please do not hesitate to contact practitioner for clarification. 08/02/2024 Nephrolithiasis (ICD-10 - N20.0) Shirlene is [...] management. Consider group exercises. Consider hiring a manager personal. Regular exercise is valdez to sustainable health [...] counseling and psychiatry and Dr Coronado at [facility]. We would like to cover regular topics [...] Dictation was accomplished with the use of [employer] voice recognition software, prone to medical misidentifications and grammatical errors. This is unintentional and the practitioner does try to identify and correct these, but some could still be present. Please do not hesitate to contact practitioner for clarification. All questions answered to patients satisfaction. Patient verbalized understanding of diagnosis and treatments explained. To call sooner prior to next visit it any questions/concerns arise. 09/05/2024 Nephrolithiasis (ICD-10 - N20.0) Patient is here for weight management follow-up. We focused on significance of healthy lifestyle changes. We talked about need to track steps with goal between 6000-10,000 steps daily, focus on portion control, read food labels, get adequate sleep between 7 to 8 hours, get adequate rest to the body, meditate, frequent nutritious meals including vegetables and healthy choices of lean meats, fish, and elimination of refined carbohydrates. We also talked about mindfulness and mindful eating. Particular focus was on continuing portion control, mindful eating, and increasing resistance training. Total time of 30 minutes spent with patient with greater than 50% spent on counseling and coordinating care. 08/02/2024: Weight 185 pounds, BMI 32.91. Seca [...] GLP-1's. Follow-up in 4 to 6 weeks. 09/05/2024: Weight 185 pounds, BMI 32.77. Seca scan completed and discussed with the patient. Patient has had a 1 pound reduction of weight since her last visit. On body analysis she is up 1 pound of fat mass. Fat mass index today is 15.0. Has had a 2 pound reduction of muscle, discussed importance of protein in diet as well as resistance training. Visceral adiposity down from 2.2 to 1.8 L. Currently on Wegovy 0.25 mg weekly. After first dose had headache and nausea however since resolved. Discussed goals with diet and exercise. Plan is to increase to 0.5 mg and follow-up in 4 to 6 weeks. # Hypertension: Blood pressure is stable in office today 126/84. Continue amlodipine 5 mg daily. # Anxiety: Continue lorazepam 0.5 mg once daily as needed for breakthrough anxiety. # Nephrolithiasis: Reports history of kidney stones as well as horseshoe kidney. Continue with increased hydration. Patient reports no abdominal pain or flank pain at this time. Will continue to monitor, please follow-up with PCP. All questions have been answered to patient's satisfaction. Patient verbalized understanding of diagnosis and treatments explained. Advised to call sooner prior to next visit it any questions/concerns arise. Case discussed with collaborating physician Jocelyn Milan who reviewed the assessment and plan. Chart, medications, labs, vital signs reviewed. Dictation was accomplished with the use of [employer] voice recognition software, which is prone to medical misidentifications and grammatical errors. This are unintentional and the practitioner does try to identify and correct these, but some could still be present. Please do not hesitate to contact practitioner for clarification. 08/02/2024 Lobulated, fused and horseshoe kidney (ICD-10 [...] Consider using apps like 7 minute excercise, myArtomatixpal, lose it, stick as needed for self-monitoring and weight management. Consider group exercises. Consider hiring a manager personal. Regular exercise is valdez to sustainable health [...] counseling and psychiatry and Dr Coronado at [facility]. We would like to cover regular topics [...] certified obesity and weight management physician (Dr. Cmaila Milan or Dr. Nicole Milan). Case discussed with collaborating physician César Milan who reviewed the assessment and plan. Chart, medications, labs, vital signs reviewed. Dictation was accomplished with the use of [employer] voice recognition software, prone to medical misidentifications and grammatical errors. This is unintentional and the practitioner does try to identify and correct these, but some could still be present. Please do not hesitate to contact practitioner for clarification. All questions answered to patients satisfaction. Patient verbalized understanding of diagnosis and treatments explained. To call sooner prior to next visit it any questions/concerns arise. 09/05/2024 Lobulated, fused and horseshoe kidney (ICD-10 - Q63.1) Patient is here for weight management follow-up. We focused on significance of healthy lifestyle changes. We talked about need to track steps with goal between 6000-10,000 steps daily, focus on portion control, read food labels, get adequate sleep between 7 to 8 hours, get adequate rest to the body, meditate, frequent nutritious meals including vegetables and healthy choices of lean meats, fish, and elimination of refined carbohydrates. We also talked about mindfulness and mindful eating. Particular focus was on continuing portion control, mindful eating, and increasing resistance training. Total time of 30 minutes spent with patient with greater than 50% spent on counseling and coordinating care. 08/02/2024: Weight 185 pounds, BMI 32.91. Seca [...] GLP-1's. Follow-up in 4 to 6 weeks. 09/05/2024: Weight 185 pounds, BMI 32.77. Seca scan completed and discussed with the patient. Patient has had a 1 pound reduction of weight since her last visit. On body analysis she is up 1 pound of fat mass. Fat mass index today is 15.0. Has had a 2 pound reduction of muscle, discussed importance of protein in diet as well as resistance training. Visceral adiposity down from 2.2 to 1.8 L. Currently on Wegovy 0.25 mg weekly. After first dose had headache and nausea however since resolved. Discussed goals with diet and exercise. Plan is to increase to 0.5 mg and follow-up in 4 to 6 weeks. # Hypertension: Blood pressure is stable in office today 126/84. Continue amlodipine 5 mg daily. # Anxiety: Continue lorazepam 0.5 mg once daily as needed for breakthrough anxiety. # Nephrolithiasis: Reports history of kidney stones as well as horseshoe kidney. Continue with increased hydration. Patient reports no abdominal pain or flank pain at this time. Will continue to monitor, please follow-up with PCP. All questions have been answered to patient's satisfaction. Patient verbalized understanding of diagnosis and treatments explained. Advised to call sooner prior to next visit it any questions/concerns arise. Case discussed with collaborating physician Jocelyn Milan who reviewed the assessment and plan. Chart, medications, labs, vital signs reviewed. Dictation was accomplished with the use of Shout[employer] voice recognition software, which is prone to medical misidentifications and grammatical errors. This are unintentional and the practitioner does try to identify and correct these, but some could still be present. Please do not hesitate to contact practitioner for clarification. 10/02/2024 Lobulated, fused and horseshoe kidney (ICD-10 - Q63.1) Patient is here for weight management follow-up. We focused on significance of healthy lifestyle changes. We talked about need to track steps with goal between 6000-10,000 steps daily, focus on portion control, read food labels, get adequate sleep between 7 to 8 hours, get adequate rest to the body, meditate, frequent nutritious meals including vegetables and healthy choices of lean meats, fish, and elimination of refined carbohydrates. We also talked about mindfulness and mindful eating. Particular focus was on continuing portion control, mindful eating, and increasing resistance training. Total time of 30 minutes spent with patient with greater than 50% spent on counseling and coordinating care. 08/02/2024: Weight 185 pounds, BMI 32.91. Seca [...] GLP-1's. Follow-up in 4 to 6 weeks. 09/05/2024: Weight 185 pounds, BMI 32.77. Seca scan completed and discussed with the patient. Patient has had a 1 pound reduction of weight since her last visit. On body analysis she is up 1 pound of fat mass. Fat mass index today is 15.0. Has had a 2 pound reduction of muscle, discussed importance of protein in diet as well as resistance training. Visceral adiposity down from 2.2 to 1.8 L. Currently on Wegovy 0.25 mg weekly. After first dose had headache and nausea however since resolved. Discussed goals with diet and exercise. Plan is to increase to 0.5 mg and follow-up in 4 to 6 weeks. 10/02/2024: Weight 180 pounds, BMI 31.88. Seca scan completed and discussed results with the patient. She is down 5 pounds overall from her last visit. On body composition analysis she is down 4 pounds of fat mass. Fat mass index today is 14.3. She has had a minor less than 1 pound reduction of her muscle mass however maintains more muscle composition at 25.4% of body weight today. Visceral adiposity today is 2.1 L. Patient currently on Wegovy 0.5 mg weekly. Endorses mild heartburn with milk consumption as well as mild nausea and headache. Managing side effects with lifestyle modifications. We discussed goals of diet and exercise. Plan is to increase dose to 1 mg weekly of Wegovy and follow-up in 4 to 6 weeks. # Hypertension: Blood pressure is stable in office today 112/80. Continue amlodipine 5 mg daily. # Anxiety: Continue lorazepam 0.5 mg once daily as needed for breakthrough anxiety. # Nephrolithiasis: Reports history of kidney stones as well as horseshoe kidney. Continue with increased hydration. Patient reports no abdominal pain or flank pain at this time. Will continue to monitor, please follow-up with PCP. All questions have been answered to patient's satisfaction. Patient verbalized understanding of diagnosis and treatments explained. Advised to call sooner prior to next visit it any questions/concerns arise. Case discussed with collaborating physician Jocelyn Milan who reviewed the assessment and plan. Chart, medications, labs, vital signs reviewed. Dictation was accomplished with the use of Sh[employer] voice recognition software, which is prone to medical misidentifications and grammatical errors. This are unintentional and the practitioner does try to identify and correct these, but some could still be present. Please do not hesitate to contact practitioner for clarification. 10/02/2024 Nutritional counseling (ICD-10 - Z71.3) Patient is here for weight management follow-up. We focused on significance of healthy lifestyle changes. We talked about need to track steps with goal between 6000-10,000 steps daily, focus on portion control, read food labels, get adequate sleep between 7 to 8 hours, get adequate rest to the body, meditate, frequent nutritious meals including vegetables and healthy choices of lean meats, fish, and elimination of refined carbohydrates. We also talked about mindfulness and mindful eating. Particular focus was on continuing portion control, mindful eating, and increasing resistance training. Total time of 30 minutes spent with patient with greater than 50% spent on counseling and coordinating care. 08/02/2024: Weight 185 pounds, BMI 32.91. Seca [...] GLP-1's. Follow-up in 4 to 6 weeks. 09/05/2024: Weight 185 pounds, BMI 32.77. Seca scan completed and discussed with the patient. Patient has had a 1 pound reduction of weight since her last visit. On body analysis she is up 1 pound of fat mass. Fat mass index today is 15.0. Has had a 2 pound reduction of muscle, discussed importance of protein in diet as well as resistance training. Visceral adiposity down from 2.2 to 1.8 L. Currently on Wegovy 0.25 mg weekly. After first dose had headache and nausea however since resolved. Discussed goals with diet and exercise. Plan is to increase to 0.5 mg and follow-up in 4 to 6 weeks. 10/02/2024: Weight 180 pounds, BMI 31.88. Seca scan completed and discussed results with the patient. She is down 5 pounds overall from her last visit. On body composition analysis she is down 4 pounds of fat mass. Fat mass index today is 14.3. She has had a minor less than 1 pound reduction of her muscle mass however maintains more muscle composition at 25.4% of body weight today. Visceral adiposity today is 2.1 L. Patient currently on Wegovy 0.5 mg weekly. Endorses mild heartburn with milk consumption as well as mild nausea and headache. Managing side effects with lifestyle modifications. We discussed goals of diet and exercise. Plan is to increase dose to 1 mg weekly of Wegovy and follow-up in 4 to 6 weeks. # Hypertension: Blood pressure is stable in office today 112/80. Continue amlodipine 5 mg daily. # Anxiety: Continue lorazepam 0.5 mg once daily as needed for breakthrough anxiety. # Nephrolithiasis: Reports history of kidney stones as well as horseshoe kidney. Continue with increased hydration. Patient reports no abdominal pain or flank pain at this time. Will continue to monitor, please follow-up with PCP. All questions have been answered to patient's satisfaction. Patient verbalized understanding of diagnosis and treatments explained. Advised to call sooner prior to next visit it any questions/concerns arise. Case discussed with collaborating physician Jocelyn Milan who reviewed the assessment and plan. Chart, medications, labs, vital signs reviewed. Dictation was accomplished with the use of [employer]ly voice recognition software, which is prone to medical misidentifications and grammatical errors. This are unintentional and the practitioner does try to identify and correct these, but some could still be present. Please do not hesitate to contact practitioner for clarification. 09/05/2024 Nutritional counseling (ICD-10 - Z71.3) Patient is here for weight management follow-up. We focused on significance of healthy lifestyle changes. We talked about need to track steps with goal between 6000-10,000 steps daily, focus on portion control, read food labels, get adequate sleep between 7 to 8 hours, get adequate rest to the body, meditate, frequent nutritious meals including vegetables and healthy choices of lean meats, fish, and elimination of refined carbohydrates. We also talked about mindfulness and mindful eating. Particular focus was on continuing portion control, mindful eating, and increasing resistance training. Total time of 30 minutes spent with patient with greater than 50% spent on counseling and coordinating care. 08/02/2024: Weight 185 pounds, BMI 32.91. Seca [...] GLP-1's. Follow-up in 4 to 6 weeks. 09/05/2024: Weight 185 pounds, BMI 32.77. Seca scan completed and discussed with the patient. Patient has had a 1 pound reduction of weight since her last visit. On body analysis she is up 1 pound of fat mass. Fat mass index today is 15.0. Has had a 2 pound reduction of muscle, discussed importance of protein in diet as well as resistance training. Visceral adiposity down from 2.2 to 1.8 L. Currently on Wegovy 0.25 mg weekly. After first dose had headache and nausea however since resolved. Discussed goals with diet and exercise. Plan is to increase to 0.5 mg and follow-up in 4 to 6 weeks. # Hypertension: Blood pressure is stable in office today 126/84. Continue amlodipine 5 mg daily. # Anxiety: Continue lorazepam 0.5 mg once daily as needed for breakthrough anxiety. # Nephrolithiasis: Reports history of kidney stones as well as horseshoe kidney. Continue with increased hydration. Patient reports no abdominal pain or flank pain at this time. Will continue to monitor, please follow-up with PCP. All questions have been answered to patient's satisfaction. Patient verbalized understanding of diagnosis and treatments explained. Advised to call sooner prior to next visit it any questions/concerns arise. Case discussed with collaborating physician Jocelyn Milan who reviewed the assessment and plan. Chart, medications, labs, vital signs reviewed. Dictation was accomplished with the use of Shoutly voice recognition software, which is prone to medical misidentifications and grammatical errors. This are unintentional and the practitioner does try to identify and correct these, but some could still be present. Please do not hesitate to contact practitioner for clarification. 08/02/2024 Nutritional counseling (ICD-10 - Z71.3) Shirlene [...] Consider using apps like 7 minute excercise, myArtomatixpal, lose it, stick as needed for self-monitoring and weight management. Consider group exercises. Consider hiring a manager personal. Regular exercise is valdez to sustainable health [...] counseling and psychiatry and Dr Coronado at [facility]. We would like to cover regular topics [...] Dictation was accomplished with the use of Shoutly voice recognition software, prone to medical misidentifications [...] Next Appt Details Provider Name:DEJA MORA , 10/30/2024 11:30:00 AM, [address] [facility], [facility], [place], [address], Insurance Providers Payer Name Payer Address Payer Phone Subscriber Number Group Number Insured Name Patient Relationship to Insured Coverage Start Date Coverage End Date [facility] [address] [place] [address] [id number] [employer] Self - patient is the insured 4 Medical (General) History Medical History History ICD Code high blood pressure anxiety kidney stones Hospitalization History Reason Date(Month/Year) kidney stones 11/26/2021
--- OUTSIDE RECORDS SUMMARY | 2024-10-24 16:26 | XMS_ITS | Clinical Summary ---
Author Organization [facility] Address [address] [place] [address] Phone Care Team Providers Care Sales Manager Prearranged Funerals Name Role Phone Elier Olmstead MD Primary Care Provider [phone] Allergies Active Allergy Reactions Criticality Noted Date Comments Celecoxib Itching 06/02/2023 Sertraline Itching 06/02/2023 Sulfamethoxazole-Trimethoprim Unknown 2023 Venlafaxine Unknown 06/02/2023 Medications Medication-Free Text ibuprofen Active traMADol (ULTRAM) 50 mg tablet 1-2 tablets as needed Orally every 6-8 hrs 6 Active ZOLPIDEM TARTRATE (AMBIEN ORAL) Active Medication-Free Text Ativan Active OXYCODONE HCL/ACETAMINOPH EN (PERCOCET ORAL) Active CYCLOBENZAPRINE HCL (CYCLOBENZAPRIN E ORAL) Active amLODIPine (NORVASC) 5 MG tablet Take 1 tablet by mouth daily. Active buPROPion (WELLBUTRIN XL) 150 MG ER 24 hr tablet TAKE 1 TABLET BY MOUTH EVERY MORNING FOR ANXIETY 4 Active LORazepam (ATIVAN) 0.5 MG tablet Take 0.5 mg by mouth 3 (three) times a day as needed for anxiety. Active multivitamin per tablet Take 1 tablet by mouth every morning. 4 Active pyridoxine, vitamin B6, (B-6) 100 MG tablet Take 1 tablet by mouth daily. Active Active Problems Problem Noted Date Diagnosed Date Left ankle pain 06/02/2023 Family History Medical History Relation Comments HIV Father infection Heart attack Mother Family history o f cardiovascular disease. Relation Status Comments Father Mother Social History Tobacco Use Types Packs/Day Years Used Date Smoking Tobacco: Never Smokeless Tobacco: Never Tobacco Cessation:Counseling Given: Not Answered Alcohol Use Standard Drinks/Week Comments Never 0 (1 standard drink = 0.6 oz pur e alcohol) Education Answer Date Recorded Are you interested in more education? Not on estefania e 05/13/2023 Are you concerned about learning? Not on file 05/13/2023 No 05/13/2023 No 05/13/2023 Digital Access Answer Date Recorded No 05/13/2023 No 05/13/2023 Reliable internet access at home? Not on file 05/13/2023 Device with a working camera? Not on file Comments Unknown Sex and Gender Information Value Date Recorded Sex Assigned at Not on file Legal Sex Female 9:24 PM EDT Gender Identity Not on file Sexual Orientation Not on file Last Filed Vital Signs Vital Sign Reading Time Taken Comments Blood Pressure - - Pulse - - Temperature - - Respiratory Rate - - Oxygen Saturation - - Inhaled Oxygen Concentration - - Weight 79.9 kg (176 lb 1.6 oz) 06/02/2023 1:15 P M EDT Height 165.1 cm (5' 5 ) 06/02/2023 1:15 PM EDT Body Mass Index 29.3 06/02/2023 1:15 PM EDT Plan of Treatment Health Maintenance Due Date Last Done Comments LIPID PANEL 1978 DEPRESSION SCREENING 1990 HEPATITIS C SCREENING 1996 HIV ONE-TIME SCREENING (18-6 5 YEARS) 1996 PAP SMEAR 1999 SCREENING FOR DIABETES 2013 MAMMOGRAM 2018 COLOGUARD 2023 COLONOSCOPY 2023 COLORECTAL CANCER SCREENING 2023 FIT TEST 2023 FOBT 2023 SIGMOIDOSCOPY 2023 VIRTUAL COLONOSCOPY 2023 COVID-19 VACCINE (2023-2 5 season) 2023 12/12/2020, 11/21/2020 Adult Td,Tdap Booster 04/15/2027 04/15/2017 , 12/26/2013 SMOKING STATUS SCREENING (On ce After 26 Yrs) Completed 06/02/2023 HEPATITIS A VACCINES Aged Out No long er eligible based on patient's age to complete this topic HIB VACCINES Aged Out No longer eligi ble based on patient's age to complete this topic MENINGOCOCCAL VACCINES (ACWY) Aged Out No longer eligible based on patient's age to complete this topic MENINGOCOCCAL VACCINES (B) Aged Out N o longer eligible based on patient's age to complete this topic PNEUMOCOCCAL VACCINES (0-49 years) Aged Out No longer eligible b ased on patient's age to complete this topic Medical Devices Not on file Insurance S S S S S S Care Teams Sales Manager Prearranged Funerals Relationship Specialty Start Date End Date Elier Olmstead MD [address] [place] [address] Dr Baig [address] [place] [address], [place] [address] PCP - General Internal Medicine 06/02/23 Additional Source Comments The information contained in this document represents components of the legal health record. It is not the complete legal health record.[facility]
== END 2024-10-24 18:56 ==
LOC: HO.HWS 15:41
PROVIDERS: PCP Internal Medicine; Visit Provider Advanced Practice Midwife
DX: D21.9 Benign neoplasm of connective and other soft tissue, unspecified (principal); N94.6 Dysmenorrhea, unspecified; N83.299 Other ovarian cyst, unspecified side
CPT/HCPCS: 99213

== ENCOUNTER 2024-12-14 13:54 | Outpatient (REF) | payer OTHER, SELFPAY ==
--- NOTE | ~2024-12-14 | US_ITS ---
EXAMINATION: US PELVIS CLINICAL INFORMATION: Ovarian cyst COMPARISON: Some pelvis 08/20/2024 TECHNIQUE: Ultrasound of the pelvis is performed using both transabdominal and transvaginal transducers along with Doppler. Transvaginal imaging is performed due to inadequate visualization transabdominally. FINDINGS: Uterus: The uterus is anteverted , anteflexed and measures 8.2 x 3.8 x 5.2 cm. The double wall endometrial thickness is 0.6 cm. There are small echogenic focus adjacent to the endometrium likely complex cyst or calcification. There are small anechoic nabothian cyst seen in the cervix. The uterus is smooth in contour and has normal myometrial echogenicity. There are several hypoechoic lesions in the posterior body of uterus measuring 0.7 x 0.65 x 0.6 cm and 0.6 x 0.4 x 0.6 and suggestive of fibroids. Previously the measured 0.8 x 0.5 x 0.6 cm and 0.7 x 0.5 x 0.6 cm respectively. No major change. No new lesions. Adnexa: Both ovaries are visualized. There is normal color flow to the adnexa. There is no ovarian torsion. There is no pelvic ascites or fluid collection. Right ovary measures 3.4 x 2 0.0, 2.3 cm. Volume 8.2 mL. There is a complex cyst measuring 1.2 x 1.2 x 1.61 cm and a simple cyst measuring 0.9 x 0.6 x 1.1 cm. Previously right ovary measured 3.1 x 1 7 x 2.2 cm. Left ovary measures 1.8 x 0.8 x 1.2 cm. Volume 0.9 mL. No focal lesion seen There is no free fluid in the cul-de-sac. US/US pelvic and transvaginal IMPRESSION: Multiple uterine fibroids are stable compared to last exam 08/20/2024. Complex and a simple cyst right ovary. The complex cyst previously measured 1.5 cm and slightly improved. There is a new simple cyst measuring 1.1 cm. Small nabothian cysts in the cervix. Echogenic focus adjacent to endometrium is likely complex cyst or microcalcification. Electronically signed by: Mariano Gregg MD 12/14/2024 03:13 PM EDT
== END 2024-12-14 13:55 | disposition home or self-care (01) ==
LOC: HO.US 13:54
PROVIDERS: PCP Internal Medicine; Visit Provider Obstetrics & Gynecology
DX: N83.299 Other ovarian cyst, unspecified side (principal)
CPT/HCPCS: 76830; 76856

== ENCOUNTER → 2024-12-14 13:57 | Outpatient (BNV) | payer OTHER, SELFPAY | PROVIDERS: PCP Internal Medicine; Visit Provider Radiology Diagnostic Radiology | DX: N83.291 Other ovarian cyst, right side (principal) | CPT/HCPCS: 76830; 76856 ==

== ENCOUNTER 2025-01-03 12:54 | Outpatient (AMB) | payer OTHER, SELFPAY ==
--- OUTSIDE RECORDS SUMMARY | 2024-10-30 07:30 | XMS_ITS ---
Author Organization [facility] [address] Address [address] [place] [address] Care Team Providers Care Nuclear Medicine Technician Name Role Phone DEJA MORA [phone] Encounters Encounter Location Date Provider Diagnosis [facility] [address] [address] 10/30/2024 DEJA MORA Plan Of Treatment No Information Progress Notes * SUKHWINDER MONTEMAYORDOB: 1980 (44 yo F)Acc No.[id number]:10/30/2024 Patient: SUKHWINDER DAVILA Provider: [place] MORA :1980 A ge:44 Y S ex:Female Date:10/30/2024 Address:[address] [place], [place] [id number] Subjective: * Chief Complaints: * * Medical History: Objective: * Vitals: Assessment: Plan: * Treatment: * Images: Billing Information: * Visit Code: * Procedure Codes: * Electronic signature of MENDEZ MORA PA-C, [id number] on 01/03/2025 at 03:45 PM EDT Sign off status: Pending * Provider: Montana MORA Date: 0 10/30/2024 Generated for Missy brumfield/Inga/Rashad on: 1 03:45 PM EDT
--- NOTE | 2025-01-03 12:55 | A.OFFVIS_ITS ---
Intake Visit Reasons: u/s follow up Intake Note: cell #[phone] Projection Camera Operator: Projection Camera Operator Present Allergies celecoxib (From Celebrex) Allergy (Intermediate, Verified 01/03/25 12:55) Itching metronidazole Allergy (Unknown, Verified 01/03/25 12:55) Rash sertraline (Zoloft) Allergy (Unknown, Verified 01/03/25 12:55) Itching sulfamethoxazole (From BACTRIM) Allergy (Unknown, Verified 01/03/25 12:55) Itching trimethoprim (From BACTRIM) Allergy (Unknown, Verified 01/03/25 12:55) Itching naproxen (From Naprosyn) Allergy (Verified 01/03/25 12:55) Itching venlafaxine (From Effexor) Allergy (Verified 01/03/25 12:55) Itching tramadol Adverse Reaction (Intermediate, Verified 01/03/25 12:55) Nausea alprazolam (From XANAX) Adverse Reaction (Mild, Verified 01/03/25 12:55) Confusion Sulfa (Sulfonamide Antibiotics) Adverse Reaction (Unknown, Verified 01/03/25 12:55) yeast infection Is last menstrual period known: Yes HPI Comments Details: Tele Health Visit Total time I personally spent on visit and management today: 20 minutes. Time spent included review of pertinent office notes in the electronic health record; review of laboratory and imaging results; review of personal family medical history; discussing diagnosis and plan of care with the patient; documenting the encounter in the EMR. Patient presents to discuss: To discuss ultrasound findings, history of complex ovarian cyst, she reports everyday pelvic pain on the right side. [facility] Medical History (Updated 01/03/25 @ 13:22 by Marleny Crystal CNM) Complex cyst of right ovary Ovarian cyst Fibroid Breast cancer screening by mammogram (~06/11/23) HPV (human papilloma virus) infection Renal calculi Pyelonephritis Lumbar degenerative disc disease Horseshoe kidney Anxiety Obesity (BMI 30-39.9) Benign essential hypertension Gestational HTN Surgical History History of extraction of renal calculus Back pain with history of spinal surgery H/O wrist surgery Family History Father HIV (human immunodeficiency virus infection) Mother CVD (cardiovascular disease) Maternal Grandmother Breast cancer Diabetes Hypertension Maternal Grandfather Prostate cancer Paternal Grandmother CVD (cardiovascular disease) Paternal Grandfather Prostate cancer Sister In good health CHF (congestive heart failure) Son In good health Social History Household Members: Spouse Housing: Apartment Are you a primary health care consultant to a significant other at home: No Do you presently have visiting nurse or other home services: No Alcohol intake: never Patient Tobacco Use Status: Never used Tobacco e-Cigarette/Vaping Use: Never Used Second Hand Smoke Exposure: No service: No (HPD) Current occupational status: employed Cognitive needs: No Hearing needs: No Vision needs: No Female Reproductive History Menstrual Age of Menarche: 11 Review of Systems Const All systems reviewed & are unremarkable except as noted in HPI and below Endo Reports no additional complaints Physical Exam Const General: cooperative, healthy appearing and no acute distress Psych Appearance: well kempt Attitude: cooperative Thought process: Normal thought process present Telehealth Telehealth Telehealth Platform: [employer] Location of provider rendering services: practice address Location of patient: other Patient Identification confirmed using: Name, : Yes Telehealth method: video Patient verbally consented to treatment: Yes Patient verbally consented to billing insurance company: Yes Patient informed of any privacy concerns related to visit: Yes Results Reviewed Results Reviewed: [address] [address] Ultrasound Report Signed Patient: Shirlene Mcdermott MR#: [id number] : 1980 Acct:[id number] Age/Sex: 44 / F ADM Date: 12/14/24 Loc: HO.US Attending Dr: Navin Mcarthur MD Ordering Physician: Marleny Crystal CNM Date of Service: 12/14/24 Procedure(s): US pelvic and transvaginal Accession Number(s): [id number] cc: Elier Olmstead MD; Marleny Crystal CNM~ Reason for Exam: N83.299 - Other ovarian cyst, unspecified side EXAMINATION: US PELVIS CLINICAL INFORMATION: Ovarian cyst COMPARISON: Some pelvis 08/20/2024 TECHNIQUE: Ultrasound of the pelvis is performed using both transabdominal and transvaginal transducers along with Doppler. Transvaginal imaging is performed due to inadequate visualization transabdominally. FINDINGS: Uterus: The uterus is anteverted , anteflexed and measures 8.2 x 3.8 x 5.2 cm. The double wall endometrial thickness is 0.6 cm. There are small echogenic focus adjacent to the endometrium likely complex cyst or calcification. There are small anechoic nabothian cyst seen in the cervix. The uterus is smooth in contour and has normal myometrial echogenicity. There are several hypoechoic lesions in the posterior body of uterus measuring 0.7 x 0.65 x 0.6 cm and 0.6 x 0.4 x 0.6 and suggestive of fibroids. Previously the measured 0.8 x 0.5 x 0.6 cm and 0.7 x 0.5 x 0.6 cm respectively. No major change. No new lesions. Adnexa: Both ovaries are visualized. There is normal color flow to the adnexa. There is no ovarian torsion. There is no pelvic ascites or fluid collection. Right ovary measures 3.4 x 2 0.0, 2.3 cm. Volume 8.2 mL. There is a complex cyst measuring 1.2 x 1.2 x 1.61 cm and a simple cyst measuring 0.9 x 0.6 x 1.1 cm. Previously right ovary measured 3.1 x 1 7 x 2.2 cm. Left ovary measures 1.8 x 0.8 x 1.2 cm. Volume 0.9 mL. No focal lesion seen There is no free fluid in the cul-de-sac. US/US pelvic and transvaginal IMPRESSION: Multiple uterine fibroids are stable compared to last exam 08/20/2024. Complex and a simple cyst right ovary. The complex cyst previously measured 1.5 cm and slightly improved. There is a new simple cyst measuring 1.1 cm. Small nabothian cysts in the cervix. Echogenic focus adjacent to endometrium is likely complex cyst or microcalcification. Electronically signed by: Mariano Gregg MD 12/14/2024 03:13 PM EDT Dictated By: Mariano Gregg MD Signed By: <Electronically signed by Mariano Gregg MD in OV> 12/14/24 0603 DD/ 1419 TD/TT: 12/14/24 1439 Driller Brake Lining: JOSE Assessment & Plan Assessment & Plan (1) Complex cyst of right ovary: Comment: right-1.2x1.2x1.61cm, w/adjacent simple cyst 0.9x0.6x1.1cm Code(s): N83.291 - Other ovarian cyst, right side Category: Medical Plan Counseled regarding findings of: Complex ovarian cyst, which is often benign, and most resolve on their own overtime. Some develop into premalignant or malignant tumors. Limitations of testing for diagnostic purposes. Further monitoring and evaluation is recommended with US, possible CT, or MRI study. If persists, or is indicated (Ca-125, Carbohydrate Antigen 19-9, & Carcinoembryonic Antigen) labs will be ordered and referral to [facility] or general gynecology for MD care if indicated for possible surgical consult. Follow up in person for test results. All of her questions and concerns were addressed to the best of my ability and shared decision making. She is agreeable to the plan of care. This note is constructed using voice recognition software. While every effort has been made to ensure accuracy, corporate director errors may have been included. Orders: Orders US pelvic and transvaginal 01/03/25 N83.291 - Other ovarian cyst, right side Coding Level of Care Code Tele Est Pt Level 3 (35591) Diagnoses Complex cyst of right ovary N83.291
--- OUTSIDE RECORDS SUMMARY | 2025-01-03 15:46 | XMS_ITS | Clinical Summary ---
Author Organization [facility] Address [address] [place] [address] Phone Care Team Providers Care Lasting Room Supervisor Name Role Phone Elier Olmstead MD Primary Care Provider [phone] Allergies Active Allergy Reactions Criticality Noted Date [...] FOBT 2023 SIGMOIDOSCOPY 2023 VIRTUAL COLONOSCOPY 2023 INFLUENZA VACCINE (#1) 2024 , 12/04/2019 COVID-19 VACCINE (3 2024-2 6 season) 2024 12/12/2020, 11/21/2020 Adult Td,Tdap Booster 04/15/2027 04/15/2017 [...] S S S S S Care Teams Lasting Room Supervisor Relationship Specialty Start Date End Date Elier Olmstead MD [address] [place] [address] PCP - General Internal Medicine 06/02/23 Additional Source Comments The information contained in this document represents components of the legal health record. It is not the complete legal health record.[facility]
--- OUTSIDE RECORDS SUMMARY | 2025-01-03 15:46 | XMS_ITS | Patient Health Record ---
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 Problem Essential hypertension (83007581) Essential hypertension (I10) Active confirmed Problem Anxiety (84559080) Anxiety (F41.9) Active confi rmed Problem Nephrolithiasis (44782112) Nephrolithiasis (N20.0) Active confirmed Problem BMI 30+ - obesity (608070546) BMI 32.0-32.9,adult (Z68.32) Active confirmed Problem Body mass index 30.00 to 34.99 (967843132072897) BMI 31.0-31.9,adult (Z68.31) Active confirmed Problem Adult-onset obesity (125531214) Adult-onset obesity (E66.9) Active confirmed Vital Signs Heart Rate 85 /min 10/02/2024 Oximetry 97 % 10/02/2024 Blood pressure diastolic 80 mm Hg 10/02/2024 Height 63 in 10/02/2024 Blood pressure systolic 112 mm Hg 10/02/2024 Weight 180 lbs 10/02/2024 BMI 31.88 kg/m2 10/02/2024 Encounters Encounter Location Date Provider Diagnosis [facility] [address] [address] 08/02/2024 DEJA MORA Adult-onset obesity E66.9 ; BMI 32.0-32.9,adult Z68.32 ; Essential hypertension I10 ; Anxiety F41.9 ; Nephrolithiasis N20.0 ; Lobulated, fused and horseshoe kidney Q63.1 and Nutritional counseling Z71.3 [facility] [address] [address] 09/05/2024 DEJA MORA Adult-onset obesity E66.9 ; BMI 32.0-32.9,adult Z68.32 ; Essential hypertension I10 ; Anxiety F41.9 ; Nephrolithiasis N20.0 ; Lobulated, fused and horseshoe kidney Q63.1 and Nutritional counseling Z71.3 [facility] [address] [address] 10/02/2024 DEJA MORA BMI 31.0-31.9,adult Z68.31 ; Adult-onset obesity E66.9 ; Essential hypertension I10 ; Anxiety F41.9 ; Nephrolithiasis N20.0 ; Lobulated, fused and horseshoe kidney Q63.1 and Nutritional counseling Z71.3 [facility] [address] [address] 08/02/2024 DEJA MORA Assessments Encounter Date Diagnosis [...] management. Consider group exercises. Consider hiring a personalization specialist. Regular exercise is valdez to sustainable health [...] counseling and psychiatry and Dr Coronado at [facility]. We would like to cover regular topics [...] Dictation was accomplished with the use of 365 [employer] voice recognition software, prone to medical misidentifications [...] Consider using apps like 7 minute excercise, [employer], lose it, stick as needed for self-monitoring and weight management. Consider group exercises. Consider hiring a personalization specialist. Regular exercise is valdez to sustainable health [...] counseling and psychiatry and Dr Coronado at [facility]. We would like to cover regular topics [...] Dictation was accomplished with the use of 365 [employer] voice recognition software, prone to medical misidentifications [...] Dictation was accomplished with the use of [employer] voice recognition software, which is prone to [...] Dictation was accomplished with the use of [employer] voice recognition software, which is prone to [...] Dictation was accomplished with the use of 365 [employer] voice recognition software, which is prone to [...] Dictation was accomplished with the use of 365 [employer] voice recognition software, which is prone to [...] Dictation was accomplished with the use of 365 [employer] voice recognition software, which is prone to [...] Consider using apps like 7 minute excercise, myboolinopal, lose it, stick as needed for self-monitoring and weight management. Consider group exercises. Consider hiring a personalization specialist. Regular exercise is valdez to sustainable health [...] counseling and psychiatry and Dr Coronado at [facility]. We would like to cover regular topics [...] Dictation was accomplished with the use of 365 [employer] voice recognition software, prone to medical misidentifications [...] Dictation was accomplished with the use of 365 [employer] voice recognition software, which is prone to [...] Dictation was accomplished with the use of 365 [employer] voice recognition software, which is prone to [...] Consider using apps like 7 minute excercise, myboolinopal, lose it, stick as needed for self-monitoring and weight management. Consider group exercises. Consider hiring a personalization specialist. Regular exercise is valdez to sustainable health [...] counseling and psychiatry and Dr Coronado at [facility]. We would like to cover regular topics [...] Dictation was accomplished with the use of 365 [employer] voice recognition software, prone to medical misidentifications [...] Dictation was accomplished with the use of 365 [employer] voice recognition software, which is prone to [...] Dictation was accomplished with the use of 365 [employer] voice recognition software, which is prone to [...] management. Consider group exercises. Consider hiring a personalization specialist. Regular exercise is valdez to sustainable health [...] counseling and psychiatry and Dr Coronado at [facility]. We would like to cover regular topics [...] Dictation was accomplished with the use of 365 [employer] voice recognition software, prone to medical misidentifications [...] Dictation was accomplished with the use of 365 [employer] voice recognition software, which is prone to [...] Consider using apps like 7 minute excercise, myboolinopal, lose it, stick as needed for self-monitoring and weight management. Consider group exercises. Consider hiring a personalization specialist. Regular exercise is valdez to sustainable health [...] counseling and psychiatry and Dr Coronado at [facility]. We would like to cover regular topics [...] Dictation was accomplished with the use of 365 [employer] voice recognition software, prone to medical misidentifications [...] Dictation was accomplished with the use of 365 [employer] voice recognition software, which is prone to [...] Dictation was accomplished with the use of 365 [employer] voice recognition software, which is prone to [...] Dictation was accomplished with the use of 365 [employer] voice recognition software, which is prone to [...] Dictation was accomplished with the use of 365 [employer] voice recognition software, which is prone to [...] Consider using apps like 7 minute excercise, myboolinopal, lose it, stick as needed for self-monitoring and weight management. Consider group exercises. Consider hiring a personalization specialist. Regular exercise is valdez to sustainable health [...] counseling and psychiatry and Dr Coronado at [facility]. We would like to cover regular topics [...] Dictation was accomplished with the use of 365 [employer] voice recognition software, prone to medical misidentifications [...] it any questions/concerns arise. Plan Of Treatment No Information Insurance Providers Payer Name Payer Address Payer Phone Subscriber Number Group Number Insured Name Patient Relationship to Insured Coverage Start Date Coverage End Date [facility] [address] [place] [address] [id number] [facility] Self - patient is the insured 4 Medical (General) History Medical History History ICD Code high blood pressure anxiety kidney stones Hospitalization History Reason Date(Month/Year) kidney stones 11/26/2021
== END 2025-01-03 15:53 | disposition home or self-care (01) ==
LOC: HO.HWS 12:54
PROVIDERS: PCP Internal Medicine; Visit Provider Advanced Practice Midwife
DX: N83.291 Other ovarian cyst, right side (principal)
CPT/HCPCS: 99213

== ENCOUNTER 2025-03-04 14:13 | Outpatient (REF) | payer OTHER, SELFPAY ==
--- OUTSIDE RECORDS SUMMARY | 2024-10-30 06:30 | XMS_ITS ---
Author Organization [facility] [address] Address [address] [place] [address] Care Team Providers Care Maitre D' Name Role Phone DEJA MORA [phone] Encounters Encounter Location Date Provider Diagnosis [facility] [address] [address] 10/30/2024 DEJA MORA Plan Of Treatment No Information Progress Notes * SUKHWINDER MONTEMAYOR JOSEDOB: 1980 (44 yo F)Acc No.[id number]:10/30/2024 Patient: SUKHWINDER DAVILA Provider: [place] MORA :1980 A ge:44 Y S ex:Female Date:10/30/2024 Address:[address] [place], [place] [id number] * Electronic signature of MENDEZ MORA PA-C, [id number] on 03/04/2025 at 04:36 PM EST Sign off status: Pending * Provider: [place] MORA Date: 0 10/30/2024 Generated for Missy brumfield/Inga/eTransmitting on: 1 04:36 PM EST
--- NOTE | ~2025-03-04 | US_ITS ---
EXAMINATION: US PELVIS TRANSABDOMINAL AND TRANSVAGINAL HISTORY: N83.291 - Other ovarian cyst, right side COMPARISON: Comparison is made with the prior examination dated 12/14/2024. TECHNIQUE: Transabdominal and endovaginal real-time 2D cabrera-scale ultrasound was performed. FINDINGS: Uterus: The uterus is normal in size, measuring 8.3 x 3.7 x 4.6 cm. Myometrium has a normal echotexture. Again seen is a 7 x 5 x 7 mm anterior fibroid without change. Endometrium: The endometrial stripe measures 13 mm in thickness. There are nabothian cysts in the cervix. Right ovary: The right ovary measures 2.2 x 1.3 x 1.5 cm. There is a 1.9 x 1.2 x 1.3 cm simple cyst versus follicle. Left ovary: The left ovary measures 2.5 x 1.0 x 1.4 cm. The left ovary is normal in size and echotexture. Pelvic fluid: none. US/US pelvic and transvaginal IMPRESSION: 1. Subcentimeter anterior uterine fibroid. 2. 1.9 cm right ovarian simple cyst versus follicle. Electronically signed by: Ole Howell MD 03/04/2025 03:38 PM EST
--- OUTSIDE RECORDS SUMMARY | 2025-03-04 16:37 | XMS_ITS | Patient Health Record ---
Author Organization [facility] [address] [address] Address [address] [place] [address] Care Team Providers Care Health Outreach Worker Name Role Phone DEJA MORA Unavailable [phone] Allergies Allergen (clinical drug ingredient) Drug/Non Drug Allergy documented on EMR Reaction Allergy Type Onset Date Status celecoxib CeleBREX itch Drug Allergy Active Effexor itch Drug Allergy Active sertraline Zoloft itch Drug Allergy Active Reason For Referral No Information Medications Medication SIG (Take, Route, Frequency, Duration) Notes Start Date End Date Status Wegovy 1 MG/0.5ML Solution Auto-injector Inject 1 mg Subcutaneous weekly; Duration: 28 days 08/02/2024 Active amLODIPine Besylate 5 MG Tablet 1 tablet Orally Once a day Active LORazepam 0.5 MG Tablet Oral; Duration: 30 Days Active buPROPion HCl ER (XL) 150 MG Tablet Extended Release 24 Hour TAKE 1 TABLET BY MOUTH EVERY MORNING FOR ANXIETY Oral; Duration: 30 Days Not-Taki ng Social History Section Notes: 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[place] denied use of tabacco denied use of marijuana social drinker 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[place] denied use of tabacco denied use of marijuana social drinker 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[place] denied use of tabacco denied use of marijuana social drinker Problems Problem Type SNOMED Code ICD Code Onset Dates Problem Status W/U Status Risk Notes Problem Horseshoe kidney (disorder) (64606184) Lobulated, 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 Problem Essential hypertension (85825776) Essential hypertension (I10) Active confirmed Problem Anxiety (57352859) Anxiety (F41.9) Active confi rmed Problem Nephrolithiasis (43860910) Nephrolithiasis (N20.0) Active confirmed Problem BMI 30+ - obesity (863229875) BMI 32.0-32.9,adult (Z68.32) Active confirmed Problem Body mass index 30.00 to 34.99 (386730804642585) BMI 31.0-31.9,adult (Z68.31) Active confirmed Problem Adult-onset obesity (967478402) Adult-onset obesity (E66.9) Active confirmed Vital Signs Heart Rate 85 /min 10/02/2024 Oximetry 97 % 10/02/2024 Blood pressure diastolic 80 mm Hg 10/02/2024 Height 63 in 10/02/2024 Blood pressure systolic 112 mm Hg 10/02/2024 Weight 180 lbs 10/02/2024 BMI 31.88 kg/m2 10/02/2024 Encounters Encounter Location Date Provider Diagnosis [facility] [address] [address] 08/02/2024 DEJA ADRIANJAMAL Adult-onset obesity E66.9 ; BMI 32.0-32.9,adult Z68.32 ; Essential hypertension I10 ; Anxiety F41.9 ; Nephrolithiasis N20.0 ; Lobulated, fused and horseshoe kidney Q63.1 and Nutritional counseling Z71.3 [facility] [address] [address] 09/05/2024 DEJAVARSHA CAMPBELLJAMAL Adult-onset obesity E66.9 ; BMI 32.0-32.9,adult Z68.32 ; Essential hypertension I10 ; Anxiety F41.9 ; Nephrolithiasis N20.0 ; Lobulated, fused and horseshoe kidney Q63.1 and Nutritional counseling Z71.3 [facility] [address] [address] 10/02/2024 DEJAVARSHA CAMPBELLJAMAL BMI 31.0-31.9,adult Z68.31 ; Adult-onset obesity E66.9 ; Essential hypertension I10 ; Anxiety F41.9 ; Nephrolithiasis N20.0 ; Lobulated, fused and horseshoe kidney Q63.1 and Nutritional counseling Z71.3 [facility] [address] [address] 08/02/2024 DEJA MORA Assessments Encounter Date Diagnosis [...] management. Consider group exercises. Consider hiring a personal clothing laundry aide. Regular exercise is valdez to sustainable health [...] counseling and psychiatry and Dr Coronado at [email or web address]. We would like to cover regular topics [...] Dictation was accomplished with the use of [employer] voice recognition software, prone to medical misidentifications [...] management. Consider group exercises. Consider hiring a personal clothing laundry aide. Regular exercise is valdez to sustainable health [...] counseling and psychiatry and Dr Coronado at [email or web address]. We would like to cover regular topics [...] Dictation was accomplished with the use of [employer] voice recognition software, prone to medical misidentifications [...] Dictation was accomplished with the use of [employer] voice recognition software, which is prone to [...] Dictation was accomplished with the use of [employer] voice recognition software, which is prone to [...] Dictation was accomplished with the use of [employer] voice recognition software, which is prone to [...] Dictation was accomplished with the use of [employer] voice recognition software, which is prone to [...] Dictation was accomplished with the use of [employer] voice recognition software, which is prone to [...] management. Consider group exercises. Consider hiring a personal clothing laundry aide. Regular exercise is valdez to sustainable health [...] counseling and psychiatry and Dr Coronado at [email or web address]. We would like to cover regular topics [...] Dictation was accomplished with the use of [employer] voice recognition software, prone to medical misidentifications [...] Dictation was accomplished with the use of [employer] voice recognition software, which is prone to [...] Dictation was accomplished with the use of [employer] voice recognition software, which is prone to [...] management. Consider group exercises. Consider hiring a personal clothing laundry aide. Regular exercise is valdez to sustainable health [...] counseling and psychiatry and Dr Coronado at [email or web address]. We would like to cover regular topics [...] Dictation was accomplished with the use of [employer] voice recognition software, prone to medical misidentifications [...] Dictation was accomplished with the use of [employer] voice recognition software, which is prone to [...] Dictation was accomplished with the use of [employer] voice recognition software, which is prone to medical misidentifications and grammatical errors. This are unintentional and the practitioner does try to identify and correct these, but some could still be present. Please do not hesitate to contact practitioner for clarification. 08/02/2024 Nephrolithiasis (ICD-10 - N20.0) Carolina is a 44-year-old female with history of [...] management. Consider group exercises. Consider hiring a personal clothing laundry aide. Regular exercise is valdez to sustainable health [...] counseling and psychiatry and Dr Coronado at [email or web address]. We would like to cover regular topics [...] medical history, this patient would benefit from Weantony based off of the following criteria met: [...] Dictation was accomplished with the use of [employer] voice recognition software, prone to medical misidentifications [...] Dictation was accomplished with the use of [employer] voice recognition software, which is prone to [...] Consider using apps like 7 minute excercise, myZettaCorepal, lose it, stick as needed for self-monitoring and weight management. Consider group exercises. Consider hiring a personal clothing laundry aide. Regular exercise is valdez to sustainable health [...] counseling and psychiatry and Dr Coronado at [email or web address]. We would like to cover regular topics [...] Dictation was accomplished with the use of [employer] voice recognition software, prone to medical misidentifications [...] Dictation was accomplished with the use of [employer] voice recognition software, which is prone to [...] Dictation was accomplished with the use of [employer] voice recognition software, which is prone to [...] Dictation was accomplished with the use of [employer] voice recognition software, which is prone to [...] Dictation was accomplished with the use of [employer] voice recognition software, which is prone to [...] Consider using apps like 7 minute excercise, [employer], lose it, stick as needed for self-monitoring and weight management. Consider group exercises. Consider hiring a personal clothing laundry aide. Regular exercise is valdez to sustainable health [...] counseling and psychiatry and Dr Coronado at [email or web address]. We would like to cover regular topics [...] Dictation was accomplished with the use of [employer] voice recognition software, prone to medical misidentifications [...] Insured Coverage Start Date Coverage End Date [facility] [address] [place] [address] [id number] [facility] Self - patient is the insured 4 Medical (General) History Medical History History ICD Code high blood pressure anxiety kidney stones Hospitalization History Reason Date(Month/Year) kidney stones 11/26/2021
--- OUTSIDE RECORDS SUMMARY | 2025-03-04 16:37 | XMS_ITS | Clinical Summary ---
Author Organization [facility] Address [facility] [address] [address] Phone Care Team Providers Care Silviculture Teacher Name Role Phone Elier Olmstead MD Primary Care Provider [phone] Allergies Active Allergy Reactions Criticality Noted Date [...] S S S S S Care Teams Silviculture Teacher Relationship Specialty Start Date End Date Elier Olmstead MD [address] [place] [address] Dr Baig [address] [place] [id number] PCP - General Internal Medicine 06/02/23 Additional Source Comments The information contained in this document represents components of the legal health record. It is not the complete legal health record.[facility]
== END 2025-03-04 14:14 ==
LOC: HO.US 14:13
PROVIDERS: PCP Internal Medicine; Visit Provider Advanced Practice Midwife
DX: N83.291 Other ovarian cyst, right side (principal)
CPT/HCPCS: 76830; 76856

== ENCOUNTER → 2025-03-04 14:17 | Outpatient (BNV) | payer OTHER, SELFPAY | PROVIDERS: PCP Internal Medicine; Visit Provider Radiology Diagnostic Radiology | DX: D25.9 Leiomyoma of uterus, unspecified (principal); N83.291 Other ovarian cyst, right side | CPT/HCPCS: 76830; 76856 ==